=== PATIENT | male | born 1960 | race African-American/Black ===

== ENCOUNTER 2019-12-04 14:21 | Inpatient (IN) ==
--- NOTE | 2019-12-04 14:38 | Emergency Department Note ---
ED Disposition Clinical Impression: Gangrene of toe of left foot, Cellulitis of left foot Disposition: Admitted As Inpatient Condition on Discharge: Good Referrals: Teofilo Evans MD [Primary Care Provider] - Time of Disposition: 16:23 - Critical Care Critical Care Time: No Attestation: On , the high probability of a clinically significant, sudden or life threatening deterioration of the following system(s) required my full and direct attention, intervention and personal management. The time I documented below is in addition to time spent performing reported procedures but includes the following listed in this critical care notation. Medical Decision Making - [place] Inquiry Pt receiving controlled substance: Yes [place] was queried for this patient: No Risks and benefits of using a controlled substance: were not discussed with pt by me Vital Signs: 12/04/19 14:24 Temperature 98.3 F Temperature Source Oral Pulse Rate [Right Radial] 78 Respiratory Rate 16 Blood Pressure [Right Arm] 126/78 Blood Pressure Mean [Right Arm] 94 Blood Pressure Source [Right Arm] Automatic Cuff Blood Pressure Position [Right Arm] Sitting 02 Sat by Pulse Oximetry 100 Oxygen Delivery Method Room Air - Lab Data Lab Results 12/04/19 15:03: WBC 7.1, RBC 3.02 L, Hgb 8.6 L, Hct 27.8 L, MCV 92.0, MCH 28.5, MCHC 31.0 L, RDW 15.5, Plt Count 416, MPV 8.3, Neut % (Auto) 60.1, Lymph % (Auto) 28.6, [place] % (Auto) 8.1, Eos % (Auto) 2.8, Baso % (Auto) 0.4, Neut # (Auto) 4.3, Lymph # (Auto) 2.0, [place] # (Auto) 0.6, Eos # (Auto) 0.2, Baso # (Auto) 0.0 12/04/19 15:03: Sodium 141, Potassium 3.7, Chloride 102, Carbon Dioxide 34 H, Anion Gap 8.7, BUN 8, Creatinine 1.28, Estimated Creat Clear 82, Estimated GFR 58 L, Est GFR ( Amer) 70, Glucose 118 H, Calcium 9.2, Total Bilirubin 0.4, AST 19, ALT 9 L, Alkaline Phosphatase 84, Total Protein 7.8, Albumin 2.3 L, Globulin 5.5 H, Albumin/Globulin Ratio 0.4 L 12/04/19 15:03: Lactate 1.0 Result diagrams: 12/04/19 15:03 12/04/19 15:03 Orders (Tests/Meds): ED MEDICATIONS Generic Name Dose Route Start Last Admin Trade Name Freq PRN Reason Stop Dose Admin Piperacillin Sod/Tazobactam 50 mls @ 100 mls/hr 12/04/19 14:45 12/04/19 14:59 Sod 3.375 gm/ Sodium Chloride IV 12/18/19 14:44 100 mls/hr Q6H SHARATH Administration Protocol Vancomycin HCl 1,750 mg/ 250 mls @ 125 mls/hr 12/04/19 15:15 Sodium Chloride IV 12/04/19 17:14 ONCE ONE Sodium Chloride 10 ml 12/04/19 14:52 Saline Flush 10ml Syringe IV 12/05/19 02:53 NEEDED PRN Maintain IV Site Discontinued Medications Generic Name Dose Route Start Last Admin Trade Name Freq PRN Reason Stop Dose Admin Sodium Chloride 1,000 mls @ 999 mls/hr 12/04/19 15:00 12/04/19 14:59 Sod Chlor 0.9% 1000ml Bag IV 12/04/19 16:00 999 mls/hr .Q1H1M SHARATH Administration Miscellaneous 1 each 12/04/19 15:15 12/04/19 15:10 Vancomycin Consult Request * 01/03/20 15:14 1 each CONSULT PHARMACY SHARATH Administration Vancomycin HCl 1,000 mg 12/04/19 14:52 Vancomycin 1000mg Vial IV 12/04/19 14:53 ONCE ONE Protocol ORDERS Category Date Time Status Blood Culture Stat Micro 12/04/19 14:37 Received Wound Culture and Gram Stain Stat Micro 12/04/19 14:53 Results - Physician Consults Physician Consulted: Dr. Evans Time: 16:20 Reason -: Admission Comment/Response: Discussed with Dr. Evans regarding the patient and plan to get the patient admitted to the floor for IV antibiotics and surgical consult with Dr. Panda. Extremity Problem HPI - General Chief complaint: Extremity Injury, Lower Stated complaint: TOE INFECTION Time Seen by Provider: 12/04/19 14:45 Source of Information: Patient Limitations: No Limitations - History of Present Illness HPI Narrative: 58-year-old male was brought in from the group home, [facility], for having infection on the left foot toes. Patient states he noticed the infection about 2 days ago. It has been getting worse. Denies having any fever or chills. Denies having any nausea or vomiting. Patient has history of diabetes. Has history of right above knee amputation. The right foot is smelling and seems to be getting dark blackish on the toe area. It involves mainly the greater toe along with the second and the third toe. MD Complaint: extremity pain, extremity swelling - Related Data Allergies Allergy/AdvReac Type Severity Reaction Status Date / Time No Known Allergies Allergy Verified 12/04/19 14:35 [facility] History - Hepatitis A Screen Attestation statement:: This patient has been screened for Hepatitis A risk factors. ROS Obtained: Yes All systems reviewed & no additional complaints Physical Exam - General General appearance: alert, in no apparent distress - Head Head exam: atraumatic, normocephalic, normal inspection - Eye Eye exam: Present: normal appearance, PERRL, EOMI - ENT ENT exam: Present: normal exam, normal oropharynx, mucous membranes moist, TM's normal bilaterally, normal external ear exam - Neck Neck exam: Present: normal inspection, full ROM - Chest Chest inspection: Present: normal inspection, symmetric chest wall rise - Respiratory Respiratory exam: Present: normal lung sounds bilaterally. Absent: respiratory distress, wheezes - Cardiovascular Cardiovascular exam: Present: regular rate, normal rhythm - Abdominal Exam Abdominal exam: Present: soft. Absent: distention, tenderness - Extremities Exam Extremities exam: Present: other (Right above-knee amputation.) - Expanded Lower Extremity Exam Left Foot/toe exam: Present: tenderness, swelling (Swelling of the left greater toe, second toe and the third toe and the adjacent metacarpophalangeal joint area and the dorsum as well as the plantar surface of the foot.), erythema, other (Mild degree of swelling and blackish discoloration of the left greater toe, second toe and the third toe. The toes are deviated laterally. All the toes have extensive nail growth. The nail growth seems to have caused infection on the toes adjacent to them. There seems to be pressure sores and ulcers on the 3 toes. There seems to be gangrenous changes on the 3 toes. There is foul-sm elling discoloration. No obvious drainage. The area looks serous. There is 2+ to 3+ pitting edema on the left lower extremity.) - Back Exam Back exam: Present: normal inspection. Absent: tenderness - Neurological Exam Neurological exam: Present: alert, oriented X3, CN II-XII intact - Psychiatric Psychiatric exam: Present: normal affect, normal mood - Skin Skin exam: Present: warm, dry, intact, normal color
[2019-12-04 15:18] LABS: Basophils % 0.4 % (0.1-2.0); Eosinophils # 0.2 K/mm3 (0.0-0.4); Eosinophils % 2.8 % (0.1-12.0); Hematocrit 27.8 % (42.0-52.0); Hemoglobin 8.6 g/dL (14.1-18.0); Lymphocytes % 28.6 % (10-50); Mean Platelet Volume 8.3 fl (7.4-10.4); Monocytes # 0.6 K/mm3 (0.1-1.0); Monocytes % 8.1 % (1.7-9.3); Neutrophils # 4.3 K/mm3 (1.8-7.8); Neutrophils % 60.1 % (37.0-80.0); Platelet Count 416 K/mm3 (142-424); Red Blood Count 3.02 M/mm3 (4.60-6.20); Red Cell Distribution Width 15.5 % (11.5-17.5); White Blood Count 7.1 K/mm3 (4.8-10.8)
[2019-12-04 15:34] LABS: Albumin Level 2.3 gm/dL (3.4-5.0); Albumin/Globulin Ratio 0.4 (1.1-1.8); Anion Gap 8.7 mEq/L (5-15); Bilirubin,Total 0.4 mg/dL (0.2-1.0); Calcium 9.2 mg/dL (8.5-10.1); Globulin 5.5 gm/dl (1.3-3.2); Total Protein,Serum 7.8 gm/dL (6.4-8.2)
--- NOTE | 2019-12-04 17:13 | Cardiology Report ---
APPROVED REPORT Left Lower Extremity Venous Study for DVT. Dial Maker: CT Indications Stasis Disease Toe infections Pt takes blood thinner unsure of name. Vein Imaging CFV (L): compressive, spontaneous, phasic, augmentation SFJ (L): compressive, spontaneous, phasic, augmentation FEM (L): compressive, spontaneous, phasic, augmentation POP (L): compressive, spontaneous, phasic, augmentation DFV (L): compressive, spontaneous, phasic, augmentation PTV (L): compressive, spontaneous, phasic, augmentation GSV (L): compressive, spontaneous, phasic, augmentation Peroneals (L):compressive, spontaneous, phasic, augmentation GAS (L): compressive, spontaneous, phasic, augmentation Findings LLE negative for DVY/SVT. Vessels fully compressible. PT and PER arteries visualized and dopplers obtained to confirm presence of a pulses. Conclusion LLE negative for DVY/SVT. Vessels fully compressible. PT and PER arteries visualized and dopplers obtained to confirm presence of a pulses. Electronically signed by : Edmundo Wilson, 12/04/2019 17:13:07
--- NOTE | 2019-12-04 18:16 | Consult Report ---
*Admission Date: 12/04/19 *Reason for consult:: Left toe gangrene *History of present illness: Mr. Hilton is a 59 DM male who was admitted from the ER for left foot gangrene. The patient states that he had an infection to the right foot a few months ago which ultimately led to a right [id number] amputation. He reports asking the nurse at the correction to trim the toenails and they "blew him off". He said nobody ever did and the nails kept growing longer and then digging into the skin where they were causing "sores and blisters". Patient was seen last night toenails were trimmed and the first and second toenails were already avulsed and removed in total. The dressing had been removed by Dr. Evans prior to seeing the patient this morning. Patient denies pain this morning. He denies nausea vomiting, fever chills, shortness of breath and chest pain. Request medical records from . Patient had right guillotine amputation below the knee 09/18/[address] Teofilo Cantrell at for right foot wet gangrene. On 09/25/2019 Dr. Edmond bond did a right below-knee amputation. There was isc hemia of the previous BKA so 10/12/2019 Dr. Wenceslao Marlow revised to an above-knee amputation. His PCP is Dr. Cardona (last name unknown) in [place]. Patiently currently resides at [facility]. Review of Systems - Review of Systems Review of systems:: pertinent systems reviewed and negative unless documented below - Constitutional Reports weakness, Denies chills - Eyes Denies blind spots - ENT Denies abnormal hearing - *Cardiovascular Denies chest pain, Denies shortness of breath - *Respiratory Denies shortness of breath - *Gastrointestinal Denies abdominal pain - *Genitourinary Denies difficulty urinating - *Musculoskeletal Reports abnormal walking, Reports decreased muscle mass, Reports deformity, Reports numbness, Reports stiffness - Integumentary/Breasts Reports nail changes, Reports dry skin, Reports non-healing lesions, Reports wounds - *Neurologic Reports abnormal walking, Reports tingling/numbness/burning sensations - Psychiatric Reports depression - Hematologic/Lymphatic Reports easy bruising [facility] History I have reviewed the patient's past medical history: Yes Medical History: Reports:: Diabetes Mellitus Type 1, Diabetes Mellitus Type 2 *Have you ever received a pneumonia vaccine?: Yes *Have you received a flu vaccine this season?: Yes Amputation: Yes (RT AKA 10/12/19) - *Social History Smoking Status: Never smoker Alcohol Intake: never *Occupational Status:: disabled Housing: correction *Travel in the last 8 weeks: None Family Hx:: Coronary Artery Disease, Diabetes Meds Home Medications Medication Instructions Recorded Confirmed Type Acetaminophen [Tylenol 500mg 500 mg PO Q4HP PRN 12/05/19 12/05/19 History tablet] Aspirin [Aspirin 81mg chewable 81 mg PO DAILY 12/05/19 12/05/19 History tab] Atorvastatin Calcium [Atorvastatin 80 mg PO HS 12/05/19 12/05/19 History 80mg Tab] Buspirone HCl [Buspar 10mg 10 mg PO TID 12/05/19 12/05/19 History tablet] Gabapentin [Gabapentin 300mg Cap] 300 mg PO TID 12/05/19 12/05/19 History Insulin Glargine,Hum.rec.anlog 25 units SQ HS 12/05/19 12/05/19 History [Basaglar Kwikpen U-100] Insulin Lispro [Admelog] 0 units SQ TID 12/05/19 12/05/19 History Mirtazapine 30 mg PO HS 12/05/19 12/05/19 History Oxycodone HCl [Oxycodone 5mg tab 5 mg PO Q4-6H PRN 12/05/19 12/05/19 History (IR)] Pantoprazole Sodium [Protonix 40mg 40 mg PO BID 12/05/19 12/05/19 History tablet] Sennosides/Docusate Sodium 1 tab PO DAILY 12/05/19 12/05/19 History [Senokot-S Tablet] Trazodone HCl 100 mg PO HS 12/05/19 12/05/19 History Venlafaxine HCl [Venlafaxine HCl 75 mg PO DAILY 12/05/19 12/05/19 History ER] carvediloL [Carvedilol 12.5mg Tab] 12.5 mg PO BID 12/05/19 12/05/19 History hydroCHLOROthiazide 12.5 mg PO DAILY 12/05/19 12/05/19 History [Hydrochlorothiazide] lisinopriL [Lisinopril 10mg Tab] 10 mg PO DAILY 12/05/19 12/05/19 History polyethylene glycoL 3350 17 gm PO DAILY 12/05/19 12/05/19 History [Polyethylene Glycol 3350] Allergies Allergy/AdvReac Type Severity Reaction Status Date / Time No Known Allergies Allergy Verified 12/04/19 14:35 Exam Vital signs and Labs for Last 24 Hours: Temp Pulse Resp BP Pulse Ox 98.9 F 84 17 159/91 H 100 12/04/19 17:39 12/04/19 17:39 12/04/19 17:39 12/04/19 17:39 12/04/19 17:39 Laboratory Results - last 24 hr 12/04/19 15:03: WBC 7.1, RBC 3.02 L, Hgb 8.6 L, Hct 27.8 L, MCV 92.0, MCH 28.5, MCHC 31.0 L, RDW 15.5, Plt Count 416, MPV 8.3, Neut % (Auto) 60.1, Lymph % (Auto) 28.6, [place] % (Auto) 8.1, Eos % (Auto) 2.8, Baso % (Auto) 0.4, Neut # (Auto) 4.3, Lymph # (Auto) 2.0, [place] # (Auto) 0.6, Eos # (Auto) 0.2, Baso # (Auto) 0.0 12/04/19 15:03: Sodium 141, Potassium 3.7, Chloride 102, Carbon Dioxide 34 H, Anion Gap 8.7, BUN 8, Creatinine 1.28, Estimated Creat Clear 82, Estimated GFR 58 L, Est GFR ( Amer) 70, Glucose 118 H, Calcium 9.2, Total Bilirubin 0.4, AST 19, ALT 9 L, Alkaline Phosphatase 84, Total Protein 7.8, Albumin 2.3 L, Globulin 5.5 H, Albumin/Globulin Ratio 0.4 L 12/04/19 15:03: Lactate 1.0 I & O for Last 24 hours: Intake & Output 12/02/19 12/03/19 12/04/19 12/05/19 11:59 11:59 11:59 11:59 Weight 188 lb 8 oz Microbiology Reports for the Last 24 Hours: Microbiology 12/04/19 14:53 Toe,Left Great Gram Stain - Final - Constitutional no acute distress - *Routine HEENT Exam Head: Present: normocephalic - *Routine Neck Exam Present: supple - *Routine Respiratory Exam Absent: respiratory distress - *Routine Cardiovascular Exam Present: RRR - *Routine Abdominal Exam Present: soft. Absent: guarding - *Routine Rectal Exam Patient deferred: visual exam - *Routine Exam Patient deferred: penile exam - *Routine Extremities Exam Present: amputation (R AKA). Absent: pulses intact, normal capillary refill, calf tenderness - *Routine Skin Exam Present: erythema, dry, mottling, wounds, gangrene (L 1-2nd toes) - *Routine Neurological Exam Present: sensory deficit, abnormal gait - Detailed Lower Extremity Exam Top foot image: 1 - Left toes blistered sloughing skin. Total nail avulsion of 1-2nd toenails yesterday. There are gangerous changes from the digital toe tips to base of the toe. No malodor. No ulises purulence. No palpable pedal pulses. Right AKA. Results - Labs Result Diagrams: 12/05/19 05:30 12/05/19 05:30 Labs: Abnormal lab results 12/04/19 12/04/19 Range/Units 15:03 15:03 RBC 3.02 L (4.60-6.20) M/mm3 Hgb 8.6 L (14.1-18.0) g/dL Hct 27.8 L (42.0-52.0) % MCHC 31.0 L (31.8-35.4) g/dL Carbon Dioxide 34 H (21.0-32.0) mmol/L Estimated GFR 58 L (>60) ml/min Glucose 118 H (74-106) mg/dL ALT 9 L (12-78) U/L Albumin 2.3 L (3.4-5.0) gm/dL Globulin 5.5 H (1.3-3.2) gm/dl Albumin/Globulin Ratio 0.4 L (1.1-1.8) H & H 12/04/19 Range/Units 15:03 Hgb 8.6 L (14.1-18.0) g/dL Hct 27.8 L (42.0-52.0) % All other labs normal. - Diagnostic results Ankle/Foot x-ray: report reviewed, image reviewed (No definitive osteomyelitis) Assessment and Plan (1) Gangrene of toe of left foot Current visit: Yes Status: Acute Category: Medical Code(s): I96 - Gangrene, not elsewhere classified (2) Onychogryposis of toenail Current visit: Yes Status: Acute Category: Medical Code(s): L60.2 - Onychogryphosis (3) History of right below knee amputation Current visit: Yes Status: Acute Category: Surgical Code(s): Z89.511 - Acquired absence of right leg below knee (4) Onychodystrophy Current visit: Yes Status: Acute Category: Medical Code(s): L60.3 - Nail dystrophy (5) Toenail avulsion Current visit: Yes Status: Acute Category: Medical Code(s): S91.209A - Unspecified open wound of unspecified toe(s) with damage to nail, initial encounter (6) Diabetes mellitus Current visit: Yes Status: Acute Category: Medical Code(s): E11.9 - Type 2 diabetes mellitus without complications (7) Peripheral arterial disease Current visit: Yes Status: Acute Category: Medical Code(s): I73.9 - Peripheral vascular disease, unspecified (8) Peripheral arterial occlusive disease Current visit: Yes Status: Acute Category: Medical Code(s): I77.9 - Disorder of arteries and arterioles, unspecified - Assessment and plan all Dx Assessment and Plan for all problems:: PROCEDURE, 12/04/19: I discussed the condition and treatment options with the patient. I explained that because of the nail dystrophy and thickness of the toenails the first and second toenails being long and pushing into the skin they have caused trauma and sores to the first and second toes. My recommendation would be to trim the toenails on the left foot. The first and second toenails were also partially avulsed up and intact only really by sloughy skin. Patient agreed with procedure. LEFT 1,2nd TOTAL NAIL AVULSION and NAIL DEBRIDEMENT 3-5: I discussed the condition and treatment options with the patient. Skin cleansed with betadine. No local anesthetic block was given. No digital tourniquet was used. A nail nipper was used to debride the 3-5th toenails without complication. The nail nippers was used to remove in total the 1-2nd nails. There was hypertrophy and damage noted to the tissue under the nail. The skin surrounding the toenail was dusky, with black/brown gangrenous changes. No area probe to bone. Capillary refill time and pulses were not appreciated. Betadine soaked 4x4s gauze, and mar wrap was placed around the toes. 12/05/19: The area was cleansed at bedside with Betadine. There are no new signs of erythema or purulence. Gangrenous changes still noted to the first and second toe as above. Betadine soaked 4x4s gauze, and mar wrap was placed around the toes. X-rays from 12/04/2019 were reviewed by myself, report noted. No definitive signs of osteomyelitis noted. White count within normal limits. ESR and CRP pending. I discussed plan of care with Dr. Evans. ABIs performed 12/05/2019. Left JEFFERY DP 0.4, left TBI unobtainable, no waveform. I explained that due to his ischemic changes and abnormal ABIs, I would not recommend surgical amputation. After reviewing the [facility] op notes patient underwent a guillotine right BKA 09/18/2019. That was revised to a below-knee amputation on 09/25/19. That did not heal, stump was ischemic and was then converted to a right AKA 10/12/2019. Patient adamantly refuses any surgery or amputation. My recommendation is now that the source of the infection from the long toenails pushing into the toes causing blistering and scarring have been removed and trimmed, I perform daily dressing changes with Betadine keep the area clean and dry. Patient may need senior care abx if osteomyelitis noted on advanced imaging. 1. No surgical intervention planned at this time 2. Patient refuses surgery 3. skilled nursing orders: Daily dressing change: Clean left toes w Betadine, wrap loosely Betadine soaked 4x4, dry 4x4, small Mar, tape. 4. Abx per Dr. Evans 5. Recommend vascular evaluation 6. Will plan for dressing change tomorrow then likely sign off care. 7. Please call if further evaluation or opinion warranted. Patient did not want Podiatry surgical debridement or amputation.
--- NOTE | 2019-12-04 20:00 | History & Physical Report ---
*Admission Date: 12/04/19 *Chief complaint: foot infection *History of present illness: this pt has pain and progressive changes to left foot - pt was seen in the ed -8-year-old male was brought in from the [facility], [facility], for having infection on the left foot toes. Patient states he noticed the infection about 2 days ago. It has been getting worse. Denies having any fever or chills. Denies having any nausea or vomiting. Patient has history of diabetes. Has history of right above knee amputation. The left foot is smelling and seems to be getting dark blackish on the toe area. It involves mainly the greater toe along with the second and the third toe pt was admitted with iv abx and podiatry eval -pt has sig hx of rt aka about 2 months ago at [facility] History I have reviewed the patient's past medical history: Yes Medical History: Reports:: Congestive Heart Failure, Diabetes Mellitus Type 1, Diabetes Mellitus Type 2, Hyperlipidemia, Hypertension *Have you ever received a pneumonia vaccine?: No *Have you received a flu vaccine this season?: Yes Other Medical History: Reports: Blood Transfusion Reaction Laterality Cases: Right: Other Other Surgeries: Yes: Open Heart Surgery Amputation: Yes (RT BTK) - *Social History Smoking Status: Never smoker Alcohol Intake: never *Occupational Status:: disabled Housing: [facility] *Travel in the last 8 weeks: None Family Hx:: Unable to obtain Review of Systems - Review of Systems Review of systems:: pertinent systems reviewed and negative unless documented below - Constitutional Reports anorexia, Denies fever(s), Denies headache(s) - Eyes Denies change in vision - ENT Denies neck pain - *Cardiovascular Denies chest pain - *Respiratory Denies cough - *Gastrointestinal Denies abdominal pain - *Genitourinary Denies blood in urine - *Musculoskeletal Reports joint pain - Integumentary/Breasts Reports other (lt foot infection ), Denies rash - *Neurologic Denies frequent falls, Denies headache(s), Denies seizure-like activity - Psychiatric Denies anxiety Meds Home Medications Medication Instructions Recorded Confirmed Type Acetaminophen [Tylenol 500mg 500 mg PO Q4HP PRN 12/05/19 12/05/19 History tablet] Aspirin [Aspirin 81mg chewable 81 mg PO DAILY 12/05/19 12/05/19 History tab] Atorvastatin Calcium [Atorvastatin 80 mg PO HS 12/05/19 12/05/19 History 80mg Tab] Buspirone HCl [Buspar 10mg 10 mg PO TID 12/05/19 12/05/19 History tablet] Gabapentin [Gabapentin 300mg Cap] 300 mg PO TID 12/05/19 12/05/19 History Insulin Glargine,Hum.rec.anlog 25 units SQ HS 12/05/19 12/05/19 History [Basaglar Kwikpen U-100] Insulin Lispro [Admelog] 0 units SQ TID 12/05/19 12/05/19 History Mirtazapine 30 mg PO HS 12/05/19 12/05/19 History Oxycodone HCl [Oxycodone 5mg tab 5 mg PO Q4-6H PRN 12/05/19 12/05/19 History (IR)] Pantoprazole Sodium [Protonix 40mg 40 mg PO BID 12/05/19 12/05/19 History tablet] Sennosides/Docusate Sodium 1 tab PO DAILY 12/05/19 12/05/19 History [Senokot-S Tablet] Trazodone HCl 100 mg PO HS 12/05/19 12/05/19 History Venlafaxine HCl [Venlafaxine HCl 75 mg PO DAILY 12/05/19 12/05/19 History ER] carvediloL [Carvedilol 12.5mg Tab] 12.5 mg PO BID 12/05/19 12/05/19 History hydroCHLOROthiazide 12.5 mg PO DAILY 12/05/19 12/05/19 History [Hydrochlorothiazide] lisinopriL [Lisinopril 10mg Tab] 10 mg PO DAILY 12/05/19 12/05/19 History polyethylene glycoL 3350 17 gm PO DAILY 12/05/19 12/05/19 History [Polyethylene Glycol 3350] Allergies Allergy/AdvReac Type Severity Reaction Status Date / Time No Known Allergies Allergy Verified 12/04/19 14:35 Exam Vital signs and Labs for Last 24 Hours: Temp Pulse Resp BP Pulse Ox 98.9 F 84 17 159/91 H 100 12/04/19 17:39 12/04/19 17:39 12/04/19 17:39 12/04/19 17:39 12/04/19 17:39 Laboratory Results - last 24 hr 12/04/19 15:03: WBC 7.1, RBC 3.02 L, Hgb 8.6 L, Hct 27.8 L, MCV 92.0, MCH 28.5, MCHC 31.0 L, RDW 15.5, Plt Count 416, MPV 8.3, Neut % (Auto) 60.1, Lymph % (Auto) 28.6, [place] % (Auto) 8.1, Eos % (Auto) 2.8, Baso % (Auto) 0.4, Neut # (Auto) 4.3, Lymph # (Auto) 2.0, [place] # (Auto) 0.6, Eos # (Auto) 0.2, Baso # (Auto) 0.0 12/04/19 15:03: Sodium 141, Potassium 3.7, Chloride 102, Carbon Dioxide 34 H, Anion Gap 8.7, BUN 8, Creatinine 1.28, Estimated Creat Clear 82, Estimated GFR 58 L, Est GFR ( Amer) 70, Glucose 118 H, Calcium 9.2, Total Bilirubin 0.4, AST 19, ALT 9 L, Alkaline Phosphatase 84, Total Protein 7.8, Albumin 2.3 L, Globulin 5.5 H, Albumin/Globulin Ratio 0.4 L 12/04/19 15:03: Lactate 1.0 12/04/19 15:03: ESR > 140 H 12/04/19 15:03: C-Reactive Protein 9.8 H I & O for Last 24 hours: Intake & Output 12/02/19 12/03/19 12/04/19 12/05/19 11:59 11:59 11:59 11:59 Weight 188 lb 8 oz Microbiology Reports for the Last 24 Hours: Microbiology 12/04/19 14:53 Toe,Left Great Gram Stain - Final - Constitutional no acute distress - *Routine HEENT Exam Head: Present: normocephalic Eye: Present: EOMI, PERRL ENT: Present: mucous membranes dry - *Routine Neck Exam Absent: JVD - *Routine Respiratory Exam Present: CTA bilaterally - *Routine Cardiovascular Exam Present: RRR, murmur - *Routine Abdominal Exam Present: soft - *Routine Extremities Exam Comments: changes lt foot consistent with infection - has odor and change in color - tender - *Routine Skin Exam Comments: changes left foot - - *Routine Neurological Exam Present: alert, CN II-XII intact - Routine Psychiatric Exam Present: anxious Assessment and Plan (1) Onychogryposis of toenail Current visit: Yes Status: Acute Category: Medical Code(s): L60.2 - Onychogryphosis (2) History of right below knee amputation Current visit: Yes Status: Acute Category: Surgical Code(s): Z89.511 - Acquired absence of right leg below knee (3) Onychodystrophy Current visit: Yes Status: Acute Category: Medical Code(s): L60.3 - Nail dystrophy (4) Toenail avulsion Current visit: Yes Status: Acute Category: Medical Code(s): S91.209A - Unspecified open wound of unspecified toe(s) with damage to nail, initial encounter (5) Diabetes mellitus Current visit: Yes Status: Acute Category: Medical Code(s): E11.9 - Type 2 diabetes mellitus without complications (6) Gangrene of toe of left foot Current visit: Yes Status: Acute Category: Medical Code(s): I96 - Gangrene, not elsewhere classified (7) Neuropathy Current visit: Yes Status: Acute Category: Medical Code(s): G62.9 - Polyneuropathy, unspecified (8) Elevated erythrocyte sedimentation rate Current visit: Yes Status: Acute Category: Medical Code(s): R70.0 - Elevated erythrocyte sedimentation rate (9) Anemia Current visit: Yes Status: Acute Qualifiers: Anemia type: unspecified type Qualified Code(s): D64.9 - Anemia, unspecified Category: Medical Code(s): D64.9 - Anemia, unspecified
[2019-12-04 20:56] LABS: Microscopic, Urine URINE MICROSCOPIC (MICROSCOPIC)
[2019-12-04 21:07] LABS: Appearance,Urine CLEAR (Clear); Bilirubin,Urine Negative (Negative); Blood, Urine Negative (Negative); Color,Urine YELLOW (Yellow); Glucose,Urine (UA) Negative (Negative); Ketones,Urine Negative (Negative); Leukocyte Esterase,Urine Negative (Negative); Protein,Urine Negative (Negative); Urobilinogen,Urine 0.2 EU/dl (0.2)
[2019-12-04 21:20] LABS: Bacteria,Urine Trace /lpf; Squamous Epithelial Cell,Urine Occasional #/hpf (0-5); WBC,Urine Occasional #/hpf (0-3)
[2019-12-05 05:42] LABS: Basophils % 0.3 % (0.1-2.0); Eosinophils # 0.1 K/mm3 (0.0-0.4); Lymphocytes # 1.8 K/mm3 (0.7-4.5); Lymphocytes % 28.2 % (10-50); Mean Corpuscular HGB Conc 31.7 g/dL (31.8-35.4); Mean Corpuscular Volume 88.7 fl (80-94); Mean Platelet Volume 7.9 fl (7.4-10.4); Monocytes # 0.5 K/mm3 (0.1-1.0); Monocytes % 7.1 % (1.7-9.3); Neutrophils % 62.4 % (37.0-80.0); Platelet Count 381 K/mm3 (142-424); Red Cell Distribution Width 15.3 % (11.5-17.5); White Blood Count 6.4 K/mm3 (4.8-10.8)
[2019-12-05 06:31] LABS: Anion Gap 9.6 mEq/L (5-15); Calcium 8.6 mg/dL (8.5-10.1)
[2019-12-05 06:36] LABS: Hemoglobin 7.6 g/dL (14.1-18.0)
--- NOTE | 2019-12-05 07:36 | Pharmacy Consult Notes ---
[facility] Pharmacy VTE Monitoring - Patient Demographics Admission date: 12/04/19 Report Date: 12/05/19 Time: 07:36 Allergies/Adverse Reactions: Patient Allergies No Known Allergies Allergy (Verified 12/04/19 14:35) Height: 1.91 m Weight: 85.502 kg Patient Problems: Current Active Problems Gangrene of toe of left foot (Acute) Cellulitis of left foot (Acute) Onychogryposis of toenail (Acute) History of right below knee amputation (Acute) Onychodystrophy (Acute) Toenail avulsion (Acute) Diabetes mellitus (Acute) - VTE Risk Labs: VTE Related Lab Results Hgb 7.6 g/dL (14.1-18.0) L* 12/05/19 05:30 Hct 24.0 % (42.0-52.0) L 12/05/19 05:30 Plt Count 381 K/mm3 (142-424) 12/05/19 05:30 BUN 9 mg/dL (7-18) 12/05/19 05:30 Creatinine 1.23 mg/dL (0.70-1.30) 12/05/19 05:30 Estimated Creat Clear 79 mL/min (50-200) 12/05/19 05:30 - Prophylaxis VTE Prophylaxis Ordered?: Yes Types of VTE Prophylaxis: TEDS Knee High Location of Applied Device: Bilateral Lower Extremeties Pharmacologic Type: Enoxaparin
--- NOTE | 2019-12-05 08:25 | Pharmacy Consult Notes ---
- Pharmacy Consult Date: 12/05/19 Time: 08:23 Referring provider: DR. CHACON Reason for Consult:: VANCOMYCIN DOSING Allergies and ADEs:: Allergies Allergy/AdvReac Type Severity Reaction Status Date / Time No Known Allergies Allergy Verified 12/04/19 14:35 Home Medications:: Home Medications Medication Instructions Recorded Confirmed Type Acetaminophen [Tylenol 500mg 500 mg PO Q4HP PRN 12/05/19 12/05/19 History tablet] Aspirin [Aspirin 81mg chewable 81 mg PO DAILY 12/05/19 12/05/19 History tab] Atorvastatin Calcium [Atorvastatin 80 mg PO HS 12/05/19 12/05/19 History 80mg Tab] Buspirone HCl [Buspar 10mg 10 mg PO TID 12/05/19 12/05/19 History tablet] Gabapentin [Gabapentin 300mg Cap] 300 mg PO TID 12/05/19 12/05/19 History Insulin Glargine,Hum.rec.anlog 25 units SQ HS 12/05/19 12/05/19 History [Basaglar Kwikpen U-100] Insulin Lispro [Admelog] 0 units SQ TID 12/05/19 12/05/19 History Mirtazapine 30 mg PO HS 12/05/19 12/05/19 History Oxycodone HCl [Oxycodone 5mg tab 5 mg PO Q4-6H PRN 12/05/19 12/05/19 History (IR)] Pantoprazole Sodium [Protonix 40mg 40 mg PO BID 12/05/19 12/05/19 History tablet] Sennosides/Docusate Sodium 1 tab PO DAILY 12/05/19 12/05/19 History [Senokot-S Tablet] Trazodone HCl 100 mg PO HS 12/05/19 12/05/19 History Venlafaxine HCl [Venlafaxine HCl 75 mg PO DAILY 12/05/19 12/05/19 History ER] carvediloL [Carvedilol 12.5mg Tab] 12.5 mg PO BID 12/05/19 12/05/19 History hydroCHLOROthiazide 12.5 mg PO DAILY 12/05/19 12/05/19 History [Hydrochlorothiazide] lisinopriL [Lisinopril 10mg Tab] 10 mg PO DAILY 12/05/19 12/05/19 History polyethylene glycoL 3350 17 gm PO DAILY 12/05/19 12/05/19 History [Polyethylene Glycol 3350] Height: 1.91 m Weight: 85.502 kg Laboratory Results:: Laboratory Results - last 24 hr 12/04/19 15:03: WBC 7.1, RBC 3.02 L, Hgb 8.6 L, Hct 27.8 L, MCV 92.0, MCH 28.5, MCHC 31.0 L, RDW 15.5, Plt Count 416, MPV 8.3, Neut % (Auto) 60.1, Lymph % (Auto) 28.6, [place] % (Auto) 8.1, Eos % (Auto) 2.8, Baso % (Auto) 0.4, Neut # (Auto) 4.3, Lymph # (Auto) 2.0, [place] # (Auto) 0.6, Eos # (Auto) 0.2, Baso # (Auto) 0.0 12/04/19 15:03: Sodium 141, Potassium 3.7, Chloride 102, Carbon Dioxide 34 H, Anion Gap 8.7, BUN 8, Creatinine 1.28, Estimated Creat Clear 82, Estimated GFR 58 L, Est GFR ( Amer) 70, Glucose 118 H, Calcium 9.2, Total Bilirubin 0.4, AST 19, ALT 9 L, Alkaline Phosphatase 84, Total Protein 7.8, Albumin 2.3 L, Globulin 5.5 H, Albumin/Globulin Ratio 0.4 L 12/04/19 15:03: Lactate 1.0 12/04/19 15:03: ESR > 140 H 12/04/19 15:03: C-Reactive Protein 9.8 H 12/04/19 19:14: POC Glucose 107 12/04/19 20:30: Urine Color Yellow, Urine Appearance Clear, Urine pH 7.0, Ur Specific [place] 1.010, Urine Protein Negative, Urine Glucose (UA) Negative, Urine Ketones Negative, Urine Blood Negative, Urine Nitrate Negative, Urine Bilirubin Negative, Urine Urobilinogen 0.2, Ur Leukocyte Esterase Negative, Urine WBC Occasional, Ur Squamous Epith Cells Occasional, Urine Bacteria Trace 12/05/19 00:38: POC Glucose 135 H 12/05/19 05:13: POC Glucose 144 H 12/05/19 05:30: WBC 6.4, RBC 2.70 L, Hgb 7.6 L*, Hct 24.0 L, MCV 88.7, MCH 28.1, MCHC 31.7 L, RDW 15.3, Plt Count 381, MPV 7.9, Neut % (Auto) 62.4, Lymph % (Auto) 28.2, [place] % (Auto) 7.1, Eos % (Auto) 2.0, Baso % (Auto) 0.3, Neut # (Auto) 4.0, Lymph # (Auto) 1.8, [place] # (Auto) 0.5, Eos # (Auto) 0.1, Baso # (Auto) 0.0 12/05/19 05:30: Sodium 142, Potassium 3.6, Chloride 106, Carbon Dioxide 30, Anion Gap 9.6, BUN 9, Creatinine 1.23, Estimated Creat Clear 79, Estimated GFR 60, Est GFR ( Amer) 73, Glucose 135 H, Calcium 8.6 12/05/19 08:15: Crossmatch (AHG) See Detail Medical History: Reports:: Congestive Heart Failure, Diabetes Mellitus Type 1, Diabetes Mellitus Type 2, Hyperlipidemia, Hypertension Assessment and Plan (1) Onychogryposis of toenail Current visit: Yes Status: Acute Category: Medical Code(s): L60.2 - Onychogryphosis (2) History of right below knee amputation Current visit: Yes Status: Acute Category: Surgical Code(s): Z89.511 - Acquired absence of right leg below knee (3) Onychodystrophy Current visit: Yes Status: Acute Category: Medical Code(s): L60.3 - Nail dystrophy (4) Toenail avulsion Current visit: Yes Status: Acute Category: Medical Code(s): S91.209A - Unspecified open wound of unspecified toe(s) with damage to nail, initial encounter (5) Diabetes mellitus Current visit: Yes Status: Acute Category: Medical Code(s): E11.9 - Type 2 diabetes mellitus without complications (6) Gangrene of toe of left foot Current visit: Yes Status: Acute Category: Medical Code(s): I96 - Gangrene, not elsewhere classified (7) Neuropathy Current visit: Yes Status: Acute Category: Medical Code(s): G62.9 - Polyneuropathy, unspecified (8) Elevated erythrocyte sedimentation rate Current visit: Yes Status: Acute Category: Medical Code(s): R70.0 - Elevated erythrocyte sedimentation rate (9) Anemia Current visit: Yes Status: Acute Qualifiers: Anemia type: unspecified type Qualified Code(s): D64.9 - Anemia, unspecified Category: Medical Code(s): D64.9 - Anemia, unspecified - Assessment and plan all Dx Assessment and Plan for all problems:: BASED ON PATIENT FACTORS, RECOMMEND VANCOMYCIN 1750 MG IV ONCE, FOLLOWED BY VANCOMYCIN 1500 MG IV Q12H. PHARMACY WILL FOLLOW DAILY AND ADJUST DAISY ROPRIATE.
--- NOTE | 2019-12-05 08:46 | Progress Note ---
Internal Medicine - PN: Subj *Date: 12/05/19 *Time: 08:50 Interval history: 51-year-old male patient sitting up in bed resting quietly denies pain or needs at this time. H&H this morning 7.6 and 24, he will receive 4 units of packed blood cells. Exam Vital signs and Labs for Last 24 Hours: Temp Pulse Resp BP Pulse Ox 99.0 F 94 H 18 165/94 H 99 12/05/19 07:58 12/05/19 07:58 12/05/19 07:58 12/05/19 07:58 12/05/19 07:58 Laboratory Results - last 24 hr 12/04/19 15:03: WBC 7.1, RBC 3.02 L, Hgb 8.6 L, Hct 27.8 L, MCV 92.0, MCH 28.5, MCHC 31.0 L, RDW 15.5, Plt Count 416, MPV 8.3, Neut % (Auto) 60.1, Lymph % (Auto) 28.6, [place] % (Auto) 8.1, Eos % (Auto) 2.8, Baso % (Auto) 0.4, Neut # (Auto) 4.3, Lymph # (Auto) 2.0, [place] # (Auto) 0.6, Eos # (Auto) 0.2, Baso # (Auto) 0.0 12/04/19 15:03: Sodium 141, Potassium 3.7, Chloride 102, Carbon Dioxide 34 H, An ion Gap 8.7, BUN 8, Creatinine 1.28, Estimated Creat Clear 82, Estimated GFR 58 L, Est GFR ( Amer) 70, Glucose 118 H, Calcium 9.2, Total Bilirubin 0.4, AST 19, ALT 9 L, Alkaline Phosphatase 84, Total Protein 7.8, Albumin 2.3 L, Globulin 5.5 H, Albumin/Globulin Ratio 0.4 L 12/04/19 15:03: Lactate 1.0 12/04/19 15:03: ESR > 140 H 12/04/19 15:03: C-Reactive Protein 9.8 H 12/04/19 19:14: POC Glucose 107 12/04/19 20:30: Urine Color Yellow, Urine Appearance Clear, Urine pH 7.0, Ur Specific [place] 1.010, Urine Protein Negative, Urine Glucose (UA) Negative, Urine Ketones Negative, Urine Blood Negative, Urine Nitrate Negative, Urine Bilirubin Negative, Urine Urobilinogen 0.2, Ur Leukocyte Esterase Negative, Urine WBC Occasional, Ur Squamous Epith Cells Occasional, Urine Bacteria Trace 12/05/19 00:38: POC Glucose 135 H 12/05/19 05:13: POC Glucose 144 H 12/05/19 05:30: WBC 6.4, RBC 2.70 L, Hgb 7.6 L*, Hct 24.0 L, MCV 88.7, MCH 28.1, MCHC 31.7 L, RDW 15.3, Plt Count 381, MPV 7.9, Neut % (Auto) 62.4, Lymph % (Auto) 28.2, [place] % (Auto) 7.1, Eos % (Auto) 2.0, Baso % (Auto) 0.3, Neut # (Auto) 4.0, Lymph # (Auto) 1.8, [place] # (Auto) 0.5, Eos # (Auto) 0.1, Baso # (Auto) 0.0 12/05/19 05:30: Sodium 142, Potassium 3.6, Chloride 106, Carbon Dioxide 30, Anion Gap 9.6, BUN 9, Creatinine 1.23, Estimated Creat Clear 79, Estimated GFR 60, Est GFR ( Amer) 73, Glucose 135 H, Calcium 8.6 12/05/19 08:15: Crossmatch (AHG) See Detail I & O for Last 24 hours: Intake & Output 12/02/19 12/03/19 12/04/19 12/05/19 23:59 23:59 23:59 23:59 Intake Total 440 / 440 1641 / 1641 Output Total 1450 / 1450 Balance 440 / -60 191 / 191 Weight 188 lb 8 oz 188 lb 7.994 oz Microbiology Reports for the Last 24 Hours: Microbiology 12/04/19 14:53 Toe,Left Great Gram Stain - Final - Constitutional no acute distress - *Routine HEENT Exam Head: Present: normocephalic, atraumatic Eye: Present: EOMI, PERRL, normal accommodation ENT: Present: mucous membranes dry - *Routine Neck Exam Present: full ROM, trachea midline. Absent: JVD, tracheal deviation - *Routine Respiratory Exam Present: CTA bilaterally. Absent: accessory muscle use - *Routine Cardiovascular Exam Present: RRR, murmur - *Routine Abdominal Exam Present: soft, normoactive bowel sounds. Absent: tenderness, firm - *Routine Extremities Exam Present: pulses intact, amputation - Routine Back/Spine/Pelvis Exam Back/Spine: Present: full ROM. Absent: CVA tenderness - *Routine Skin Exam Present: wounds Comments: L Foot Grt toe w/ necrotic areas and odor, RLE Amputation - *Routine Neurological Exam Present: alert, CN II-XII intact - Routine Psychiatric Exam Present: normal affect. Absent: visual hallucinations Assessment and Plan (1) Onychogryposis of toenail Current visit: Yes Status: Acute Category: Medical Code(s): L60.2 - Onychogryphosis (2) History of right below knee amputation Current visit: Yes Status: Acute Category: Surgical Code(s): Z89.511 - Acquired absence of right leg below knee (3) Onychodystrophy Current visit: Yes Status: Acute Category: Medical Code(s): L60.3 - Nail dystrophy (4) Toenail avulsion Current visit: Yes Status: Acute Category: Medical Code(s): S91.209A - Unspecified open wound of unspecified toe(s) with damage to nail, initial encounter (5) Diabetes mellitus Current visit: Yes Status: Acute Category: Medical Code(s): E11.9 - Type 2 diabetes mellitus without complications (6) Gangrene of toe of left foot Current visit: Yes Status: Acute Category: Medical Code(s): I96 - Gangrene, not elsewhere classified (7) Neuropathy Current visit: Yes Status: Acute Category: Medical Code(s): G62.9 - Polyneuropathy, unspecified (8) Elevated erythrocyte sedimentation rate Current visit: Yes Status: Acute Category: Medical Code(s): R70.0 - Elevated erythrocyte sedimentation rate (9) Anemia Current visit: Yes Status: Acute Qualifiers: Anemia type: unspecified type Qualified Code(s): D64.9 - Anemia, unspecified Category: Medical Code(s): D64.9 - Anemia, unspecified - Assessment and plan all Dx Assessment and Plan for all problems:: Rounded with Dr. Evans, all orders per Dr. Evans 1. CT of left foot 2. PICC placement for long-term IV antibiotics 3. Consult cardiology for runoffs of left lower extremity
--- NOTE | 2019-12-05 09:56 | Consult Report ---
History of Present Illness Consult date: 12/05/19 Requesting physician: Teofilo Evans Chief complaint: left black toe Additional Medical History:: 1. PAD s/p R AKA about 2 months ago 2. CAD s/p CABG approx 3 years ago 3. HTN 4. HLD 5. DM 6. CHF History of present illness: This is a 59-year-old black gentleman who was admitted from [facility] for a wound to his left foot as well as discoloration to his toes. The patient states that he noticed the wound and discoloration about a week ago. He states that he had his nails clipped and then soon after he noticed the wound and discoloration. The patient states that his left foot is painful. He states that in the last 2 days the infection to his left foot and pain has gotten significantly worse. He denies any fever or chills. He denies any chest pain or chest pressure. He denies any shortness of breath, nausea, vomiting, diarrhea, PND or orthopnea. The patient has noticed some edema with the wound to his left foot. He does have a history of coronary artery disease status post coronary artery bypass grafting approximately 3 years ago per the patient's report, hypertension, hyperlipidemia, diabetes, PAD status post right [id number] amputation approximately 2 months ago. The wound to his left foot is malodorous and he has dark black areas noted to the great toe, a small portion of the second toe involved as well. The patient is getting IV antibiotics. [facility] History Medical History: Reports:: Atherosclerotic Heart Disease, Congestive Heart Failure, Coronary Artery Disease, Diabetes Mellitus Type 1, Diabetes Mellitus Type 2, Hyperlipidemia, Hypertension *Have you ever received a pneumonia vaccine?: No *Have you received a flu vaccine this season?: Yes Other Medical History: Reports: Blood Transfusion Reaction Laterality Cases: Right: Other Other Surgeries: Yes: CABG, Open Heart Surgery Amputation: Yes (RT AKA 10/12/19) - *Social History Smoking Status: Never smoker Alcohol Intake: never *Occupational Status:: disabled Housing: fpc *Travel in the last 8 weeks: None Family Hx:: Unable to obtain Meds Home Medications Medication Instructions Recorded Confirmed Type Acetaminophen [Tylenol 500mg 500 mg PO Q4HP PRN 12/05/19 12/05/19 History tablet] Aspirin [Aspirin 81mg chewable 81 mg PO DAILY 12/05/19 12/05/19 History tab] Atorvastatin Calcium [Atorvastatin 80 mg PO HS 12/05/19 12/05/19 History 80mg Tab] Buspirone HCl [Buspar 10mg 10 mg PO TID 12/05/19 12/05/19 History tablet] Gabapentin [Gabapentin 300mg Cap] 300 mg PO TID 12/05/19 12/05/19 History Insulin Glargine,Hum.rec.anlog 25 units SQ HS 12/05/19 12/05/19 History [Basaglar Kwikpen U-100] Insulin Lispro [Admelog] 0 units SQ TID 12/05/19 12/05/19 History Mirtazapine 30 mg PO HS 12/05/19 12/05/19 History Oxycodone HCl [Oxycodone 5mg tab 5 mg PO Q4-6H PRN 12/05/19 12/05/19 History (IR)] Pantoprazole Sodium [Protonix 40mg 40 mg PO BID 12/05/19 12/05/19 History tablet] Sennosides/Docusate Sodium 1 tab PO DAILY 12/05/19 12/05/19 History [Senokot-S Tablet] Trazodone HCl 100 mg PO HS 12/05/19 12/05/19 History Venlafaxine HCl [Venlafaxine HCl 75 mg PO DAILY 12/05/19 12/05/19 History ER] carvediloL [Carvedilol 12.5mg Tab] 12.5 mg PO BID 12/05/19 12/05/19 History hydroCHLOROthiazide 12.5 mg PO DAILY 12/05/19 12/05/19 History [Hydrochlorothiazide] lisinopriL [Lisinopril 10mg Tab] 10 mg PO DAILY 12/05/19 12/05/19 History polyethylene glycoL 3350 17 gm PO DAILY 12/05/19 12/05/19 History [Polyethylene Glycol 3350] Allergies Allergy/AdvReac Type Severity Reaction Status Date / Time No Known Allergies Allergy Verified 12/04/19 14:35 Review of Systems - Review of Systems Review of systems:: pertinent systems reviewed and negative unless documented below - *Musculoskeletal Comments: Left foot pain - Integumentary/Breasts Reports nail changes (Left foot), Reports change in skin color (Left foot the great toe is turning black), Reports skin ulcer - *Neurologic Reports abnormal walking, Reports numbness, Reports tingling/numbness/burning sensations, Reports weakness, Denies abnormal hearing, Denies frequent falls, Denies headache(s), Denies seizure-like activity Exam Vital signs and Labs for Last 24 Hours: Temp Pulse Resp BP Pulse Ox 99.0 F 94 H 18 165/94 H 99 12/05/19 07:58 12/05/19 07:58 12/05/19 07:58 12/05/19 07:58 12/05/19 07:58 Laboratory Results - last 24 hr 12/04/19 15:03: WBC 7.1, RBC 3.02 L, Hgb 8.6 L, Hct 27.8 L, MCV 92.0, MCH 28.5, MCHC 31.0 L, RDW 15.5, Plt Count 416, MPV 8.3, Neut % (Auto) 60.1, Lymph % (Auto) 28.6, [place] % (Auto) 8.1, Eos % (Auto) 2.8, Baso % (Auto) 0.4, Neut # (Auto) 4.3, Lymph # (Auto) 2.0, [place] # (Auto) 0.6, Eos # (Auto) 0.2, Baso # (Auto) 0.0 12/04/19 15:03: Sodium 141, Potassium 3.7, Chloride 102, Carbon Dioxide 34 H, Anion Gap 8.7, BUN 8, Creatinine 1.28, Estimated Creat Clear 82, Estimated GFR 58 L, Est GFR ( Amer) 70, Glucose 118 H, Calcium 9.2, Total Bilirubin 0.4, AST 19, ALT 9 L, Alkaline Phosphatase 84, Total Protein 7.8, Albumin 2.3 L, Globulin 5.5 H, Albumin/Globulin Ratio 0.4 L 12/04/19 15:03: Lactate 1.0 12/04/19 15:03: ESR > 140 H 12/04/19 15:03: C-Reactive Protein 9.8 H 12/04/19 19:14: POC Glucose 107 12/04/19 20:30: Urine Color Yellow, Urine Appearance Clear, Urine pH 7.0, Ur Specific [place] 1.010, Urine Protein Negative, Urine Glucose (UA) Negative, Urine Ketones Negative, Urine Blood Negative, Urine Nitrate Negative, Urine Bilirubin Negative, Urine Urobilinogen 0.2, Ur Leukocyte Esterase Negative, Urine WBC Occasional, Ur Squamous Epith Cells Occasional, Urine Bacteria Trace 12/05/19 00:38: POC Glucose 135 H 12/05/19 05:13: POC Glucose 144 H 12/05/19 05:30: WBC 6.4, RBC 2.70 L, Hgb 7.6 L*, Hct 24.0 L, MCV 88.7, MCH 28.1, MCHC 31.7 L, RDW 15.3, Plt Count 381, MPV 7.9, Neut % (Auto) 62.4, Lymph % (Auto) 28.2, [place] % (Auto) 7.1, Eos % (Auto) 2.0, Baso % (Auto) 0.3, Neut # (Auto) 4.0, Lymph # (Auto) 1.8, [place] # (Auto) 0.5, Eos # (Auto) 0.1, Baso # (Auto) 0.0 12/05/19 05:30: Sodium 142, Potassium 3.6, Chloride 106, Carbon Dioxide 30, Anion Gap 9.6, BUN 9, Creatinine 1.23, Estimated Creat Clear 79, Estimated GFR 60, Est GFR ( Amer) 73, Glucose 135 H, Calcium 8.6 12/05/19 08:15: Blood Type A Positive, Antibody Screen Negative, Crossmatch (AHG) See Detail 12/05/19 08:50: Blood Type Confirm A Positive I & O for Last 24 hours: Intake & Output 12/02/19 12/03/19 12/04/19 12/05/19 23:59 23:59 23:59 23:59 Intake Total 440 / 440 1881 / 1881 Output Total 1450 / 1450 Balance 440 / -60 431 / 431 Weight 188 lb 8 oz 188 lb 7.994 oz Microbiology Reports for the Last 24 Hours: Microbiology 12/04/19 14:53 Toe,Left Great Gram Stain - Final Narrative: EKG is sinus rhythm with a rate of 99, old anterior [place] pattern and inferior lateral ST and T wave abnormalities. - Constitutional no acute distress, average body habitus - *Routine HEENT Exam Head: Present: normocephalic, atraumatic Eye: Present: EOMI, PERRL ENT: Present: mucous membranes moist - *Routine Neck Exam Present: supple, full ROM, normal carotid upstroke. Absent: JVD, carotid bruit, lymphadenopathy - *Routine Respiratory Exam Present: CTA bilaterally - *Routine Cardiovascular Exam Present: RRR, Normal S1, Normal S2. Absent: murmur - *Routine Abdominal Exam Present: soft, normoactive bowel sounds. Absent: tenderness - *Routine Extremities Exam Present: edema (Left foot). Absent: cyanosis, clubbing, full ROM, pulses intact (Diminished pulses to the left foot; has a right [id number] amputee), normal capillary refill (Delayed cap refill in the left foot; right izbun-[id number] amputee) - *Routine Skin Exam Present: intact, erythema (Left foot), warm, wounds (Left foot with dressing intact). Absent: rash - *Routine Neurological Exam Present: alert, oriented X3, CN II-XII intact - Routine Psychiatric Exam Present: normal affect, normal thought process - Detailed Eye Exam Eyelids: Left normal inspection Assessment and Plan (1) Ischemic ulcer of left foot Current visit: Yes Status: Acute Category: Medical Code(s): L97.529 - Non- pressure chronic ulcer of other part of left foot with unspecified severity (2) Gangrene of toe of left foot Current visit: Yes Status: Acute Category: Medical Code(s): I96 - Gangrene, not elsewhere classified (3) Onychogryposis of toenail Current visit: Yes Status: Acute Category: Medical Code(s): L60.2 - Onychogryphosis (4) History of right below knee amputation Current visit: Yes Status: Chronic Category: Surgical Code(s): Z89.511 - Acquired absence of right leg below knee (5) Onychodystrophy Current visit: Yes Status: Acute Category: Medical Code(s): L60.3 - Nail dystrophy (6) Toenail avulsion Current visit: Yes Status: Acute Category: Medical Code(s): S91.209A - Unspecified open wound of unspecified toe(s) with damage to nail, initial encounter (7) Diabetes mellitus Current visit: Yes Status: Acute Category: Medical Code(s): E11.9 - Type 2 diabetes mellitus without complications (8) Abnormal ankle brachial index (JEFFERY) Current visit: Yes Status: Acute Category: Medical Code(s): R68.89 - Other general symptoms and signs (9) Coronary artery disease Current visit: Yes Status: Chronic Category: Medical Code(s): I25.10 - Atherosclerotic heart disease of [place] coronary artery without angina pectoris (10) History of coronary artery bypass graft Current visit: Yes Status: Chronic Category: Surgical Code(s): Z95.1 - Presence of aortocoronary bypass graft (11) Hypertension Current visit: Yes Status: Chronic Category: Medical Code(s): I10 - Essential (primary) hypertension (12) Hyperlipidemia Current visit: Yes Status: Chronic Category: Medical Code(s): E78.5 - Hyperlipidemia, unspecified (13) Peripheral arterial disease Current visit: Yes Status: Chronic Category: Medical Code(s): I73.9 - Peripheral vascular disease, unspecified (14) Anemia Current visit: Yes Status: Acute Category: Medical Code(s): D64.9 - Anemia, unspecified - Assessment and plan all Dx Assessment and Plan for all problems:: Plan: 1. The patient was admitted to the hospital secondary to an infection of the left lower extremity. The patient did have an JEFFERY which is abnormal at 0.43 preliminary. The patient does have a history of PAD and he is status post right myvgf-mbb-ngeu amputation. Given his ulcer to his left foot, discoloration of his left foot we will plan to proceed with left lower extremity runoff to evaluate for his peripheral arterial disease in his left leg secondary to his ischemic left foot. 2. The patient has been educated on the risks and benefits of proceeding with left lower extremity runoff. The patient verbalizes understanding is agreeable in proceeding with the procedure. 3. The patient will be n.p.o. in preparation for the runoff. 4. The patient will get IV fluids and premeds prior to the procedure. 5. The patient is anemic with a hemoglobin of 7.[address] Boyce would like for the patient to at least get 1 unit of packed red blood cells prior to proceeding with the left lower extremity runoff. Dr. Boyce also recommends only transfusing the patient with 2 units of packed red blood cells today. 6. The patient does have a history of coronary artery disease status post coronary artery bypass grafting approximately 3 years ago. He denies any chest pain or pressure. No plans for invasive cardiac testing at this time. He would likely benefit from an ischemic evaluation on an outpatient basis given his history of coronary artery disease. However the patient states that he is not here for his heart and does not want any procedures on his heart at this time. 7. His blood pressure is elevated. We will continue to follow and make adjustments to his blood pressure medications as needed. 8. His LDL goal is less than 55. 9. The patient is diabetic. He does need aggressive control of his diabetes. Will defer this to his primary care provider. 10. We will get an echocardiogram today to evaluate his LV function. 11. Further recommendations will be made pending the patient's response to treatment. Thank you for the opportunity to help participate in the care of this patient.
--- NOTE | 2019-12-05 14:54 | Electrocardiograph Report ---
APPROVED REPORT Exam: Resting ECG HR:99 bpm ECG Measurements Heart Rate 99 AXES MO 144 P 82 QRSd 92 QRS 50 QT 368 T218 QTc 472 <Conclusion> Normal sinus rhythm ST & T wave abnormality, consider inferolateral ischemia Abnormal ECG Electronically signed by : Carlos Alberto Pichardo, 12/05/2019 14:54:34
[2019-12-06 06:17] LABS: Basophils % 0.3 % (0.1-2.0); Eosinophils # 0.1 K/mm3 (0.0-0.4); Eosinophils % 1.2 % (0.1-12.0); Hematocrit 34.8 % (42.0-52.0); Hemoglobin 11.4 g/dL (14.1-18.0); Lymphocytes # 1.7 K/mm3 (0.7-4.5); Lymphocytes % 20.1 % (10-50); Mean Corpuscular HGB Conc 32.7 g/dL (31.8-35.4); Mean Corpuscular Volume 87.3 fl (80-94); Mean Platelet Volume 7.9 fl (7.4-10.4); Monocytes # 0.7 K/mm3 (0.1-1.0); Monocytes % 8.8 % (1.7-9.3); Neutrophils # 5.8 K/mm3 (1.8-7.8); Neutrophils % 69.6 % (37.0-80.0); Platelet Count 360 K/mm3 (142-424); Red Blood Count 3.98 M/mm3 (4.60-6.20); Red Cell Distribution Width 15.2 % (11.5-17.5); White Blood Count 8.4 K/mm3 (4.8-10.8)
[2019-12-06 06:33] LABS: Anion Gap 12.5 mEq/L (5-15); Calcium 8.9 mg/dL (8.5-10.1)
--- NOTE | 2019-12-06 08:40 | Progress Note ---
Subjective Date: 12/06/19 Time: 08:38 Principal diagnosis: PAD with non-healing ulcer Interval history: 59 yo BM in bed in NAD. Still does not want to have LE runoff performed. Gives no reason. Exam Vital signs and Labs for Last 24 Hours: Temp Pulse Resp BP Pulse Ox 99.1 F 97 H 20 162/96 H 96 12/06/19 04:00 12/06/19 04:00 12/06/19 04:00 12/06/19 04:00 12/06/19 04:00 Laboratory Results - last 24 hr 12/05/19 08:15: Blood Type A Positive, Antibody Screen Negative, Crossmatch (AHG) See Detail 12/05/19 08:50: Blood Type Confirm A Positive 12/05/19 11:29: POC Glucose 166 H 12/05/19 17:27: POC Glucose 104 12/05/19 20:24: POC Glucose 113 H 12/06/19 05:47: POC Glucose 136 H 12/06/19 05:48: WBC 8.4 D, RBC 3.98 L D, Hgb 11.4 L, Hct 34.8 L, MCV 87.3, MCH 28.5, MCHC 32.7, RDW 15.2, Plt Count 360, MPV 7.9, Neut % (Auto) 69.6, Lymph % (Auto) 20.1, [place] % (Auto) 8.8, Eos % (Auto) 1.2, Baso % (Auto) 0.3, Neut # (Auto) 5.8, Lymph # (Auto) 1.7, [place] # (Auto) 0.7, Eos # (Auto) 0.1, Baso # (Auto) 0.0 12/06/19 05:48: Sodium 142, Potassium 3.5, Chloride 107, Carbon Dioxide 26, Anion Gap 12.5, BUN 8, Creatinine 1.02, Estimated Creat Clear 97, Estimated GFR 75, Est GFR ( Amer) 91 D, Glucose 132 H, Calcium 8.9 I & O for Last 24 hours: Intake & Output 12/03/19 12/04/19 12/05/19 12/06/19 11:59 11:59 11:59 11:59 Intake Total 2801 / 2801 3980 / 3980 Output Total 2250 / 2250 2175 / 2175 Balance 551 / 551 1805 / 1805 Weight 188 lb 7.994 oz 192 lb 8 oz Microbiology Reports for the Last 24 Hours: Microbiology 12/04/19 14:53 Toe,Left Great Gram Stain - Final 12/04/19 14:53 Toe,Left Great Wound Culture - Preliminary Proteus mirabilis Progress Note: A&P (1) Ischemic ulcer of left foot Status: Acute Current Visit: Yes (2) Gangrene of toe of left foot Status: Acute Current Visit: Yes (3) Onychogryposis of toenail Status: Acute Current Visit: Yes (4) History of right below knee amputation Status: Chronic Current Visit: Yes (5) Onychodystrophy Status: Acute Current Visit: Yes (6) Toenail avulsion Status: Acute Current Visit: Yes (7) Diabetes mellitus Status: Acute Current Visit: Yes (8) Abnormal ankle brachial index (JEFFERY) Status: Acute Current Visit: Yes (9) Coronary artery disease Status: Chronic Current Visit: Yes (10) History of coronary artery bypass graft Status: Chronic Current Visit: Yes (11) Hypertension Status: Chronic Current Visit: Yes (12) Hyperlipidemia Status: Chronic Current Visit: Yes (13) Peripheral arterial disease Status: Chronic Current Visit: Yes (14) Anemia Status: Acute Current Visit: Yes Assessment and Plan for All Diagnoses:: Nothing further to add. Will be available if needed.
--- NOTE | 2019-12-06 09:26 | Discharge Summary ---
General - General Admission date:: 12/04/19 Discharge date: 12/06/19 HPI HPI: this pt has pain and progressive changes to left foot - pt was seen in the ed -8-year-old male was brought in from the long term, [facility], for having infection on the left foot toes. Patient states he noticed the infection about 2 days ago. It has been getting worse. Denies having any fever or chills. Denies having any nausea or vomiting. Patient has history of diabetes. Has history of right above knee amputation. The left foot is smelling and seems to be getting dark blackish on the toe area. It involves mainly the greater toe along with the second and the third toe pt was admitted with iv abx and podiatry eval -pt has sig hx of rt aka about 2 months ago at Hospital Course Hospital Course: ct foot:IMPRESSION: Diffuse edema throughout the soft tissues of the foot and ankle focally greatest over the 1st digit where the findings are suspicious for cellulitis and infection from gas producing organisms at the base of the distal phalanx of the 1st digit. No findings specific for osteomyelitis. And no discrete abscess. IMPRESSION: No findings specific for osteomyelitis. Soft tissue swelling over the distal 1st digit with probable diffuse cellulitis. Exam is limited by overlying bandage. Air projecting over the soft tissues of the distal 1st and 2nd digit may be extrinsic trapped in the bandage or represent gas within the soft tissues. venous doppler: Conclusion LLE negative for DVY/SVT. Vessels fully compressible. PT and PER arteries visualized and dopplers obtained to confirm presence of a pulses. Patient refusing any work-up and PICC line. When asked why patient does not want runoffs he states I just do not want it right now. Patient states what he is got going on with his foot is not emergent and is not going to happen overnight. Long discussion with patient about possible risk of waiting he states when he needs me he will let me know. Patient states all he wants right now is to go back to [place]. Will discharge back to [place] per patient request on p.o. Levaquin 750 mg/day and clindamycin 600 mg 3 times daily. Have wound doctor follow patient. Objective Vital signs: Temp Pulse Resp BP Pulse Ox 98.6 F 93 H 17 167/83 H 97 12/06/19 08:00 12/06/19 08:00 12/06/19 08:00 12/06/19 08:00 12/06/19 08:00 no acute distress - *Routine HEENT Exam Head: Present: normocephalic Eye: Present: PERRL ENT: Present: mucous membranes moist - *Routine Respiratory Exam Present: CTA bilaterally - *Routine Cardiovascular Exam Present: RRR - *Routine Abdominal Exam Present: soft, normoactive bowel sounds. Absent: tenderness - *Routine Extremities Exam Present: amputation Comments: Right BKA Dressing to left foot clean dry and intact - *Routine Skin Exam Present: wounds Comments: Dressing to foot clean dry and intact Scar to mid chest - *Routine Neurological Exam Present: alert, oriented X3 - Routine Psychiatric Exam Present: normal affect Results Labs on day of discharge: Labs from last 24 hours 12/06/19 12/06/19 12/06/19 08:05 05:48 05:48 WBC 8.4 D RBC 3.98 L D Hgb 11.4 L Hct 34.8 L MCV 87.3 MCH 28.5 MCHC 32.7 RDW 15.2 Plt Count 360 MPV 7.9 Neut % (Auto) 69.6 Lymph % (Auto) 20.1 [place] % (Auto) 8.8 Eos % (Auto) 1.2 Baso % (Auto) 0.3 Neut # (Auto) 5.8 Lymph # (Auto) 1.7 [place] # (Auto) 0.7 Eos # (Auto) 0.1 Baso # (Auto) 0.0 Sodium 142 Potassium 3.5 Chloride 107 Carbon Dioxide 26 Anion Gap 12.5 BUN 8 Creatinine 1.02 Estimated Creat Clear 97 Estimated GFR 75 Est GFR ( Amer) 91 D Glucose 132 H POC Glucose Calcium 8.9 Vancomycin Trough 19.1 Blood Type Antibody Screen Crossmatch (AHG) 12/06/19 12/05/19 12/05/19 05:47 20:24 17:27 WBC RBC Hgb Hct MCV MCH MCHC RDW Plt Count MPV Neut % (Auto) Lymph % (Auto) [place] % (Auto) Eos % (Auto) Baso % (Auto) Neut # (Auto) Lymph # (Auto) [place] # (Auto) Eos # (Auto) Baso # (Auto) Sodium Potassium Chloride Carbon Dioxide Anion Gap BUN Creatinine Estimated Creat Clear Estimated GFR Est GFR ( Amer) Glucose POC Glucose 136 H 113 H 104 Calcium Vancomycin Trough Blood Type Antibody Screen Crossmatch (AHG) 12/05/19 12/05/19 11:29 08:15 WBC RBC Hgb Hct MCV MCH MCHC RDW Plt Count MPV Neut % (Auto) Lymph % (Auto) [place] % (Auto) Eos % (Auto) Baso % (Auto) Neut # (Auto) Lymph # (Auto) [place] # (Auto) Eos # (Auto) Baso # (Auto) Sodium Potassium Chloride Carbon Dioxide Anion Gap BUN Creatinine Estimated Creat Clear Estimated GFR Est GFR ( Amer) Glucose POC Glucose 166 H Calcium Vancomycin Trough Blood Type A Positive Antibody Screen Negative Crossmatch ([facility]) See Detail Preliminary micro results at discharge 12/04/19 14:53 Wound Culture - Preliminary Toe,Left Great Proteus mirabilis - Additional Comments rounded with dr cote all orders per dr cote DS: Diagnosis - Discharge Diagnosis (1) Ischemic ulcer of left foot Status: Acute (2) Gangrene of toe of left foot Status: Acute (3) Onychogryposis of toenail Status: Acute (4) History of right below knee amputation Status: Chronic (5) Onychodystrophy Status: Acute (6) Toenail avulsion Status: Acute (7) Diabetes mellitus Status: Acute (8) Abnormal ankle brachial index (JEFFERY) Status: Acute (9) Coronary artery disease Status: Chronic (10) History of coronary artery bypass graft Status: Chronic (11) Hypertension Status: Chronic (12) Hyperlipidemia Status: Chronic (13) Peripheral arterial disease Status: Chronic (14) Anemia Status: Acute (15) Non-compliance Status: Acute Discharge Plan - Patient Discharge Instructions ACTIVITY: Continue current activity DIET: continue same diet Patient Instructions: Gangrene, Anemia - Follow up Plan Follow up with: Marcel Snyder APRN [Advanced Practice Nurse] - 12/10/19 Disposition: Xfer [facility] Home Medications: Home Medications Medication Instructions Recorded Confirmed Type Acetaminophen [Tylenol 500mg 500 mg PO Q4HP PRN 12/05/19 12/05/19 History tablet] Aspirin [Aspirin 81mg chewable 81 mg PO DAILY 12/05/19 12/05/19 History tab] Atorvastatin Calcium [Atorvastatin 80 mg PO HS 12/05/19 12/05/19 History 80mg Tab] Buspirone HCl [Buspar 10mg 10 mg PO TID 12/05/19 12/05/19 History tablet] Gabapentin [Gabapentin 300mg Cap] 300 mg PO TID 12/05/19 12/05/19 History Insulin Glargine,Hum.rec.anlog 25 units SQ HS 12/05/19 12/05/19 History [Basaglar Kwikpen U-100] Insulin Lispro [Admelog] 0 units SQ TID 12/05/19 12/05/19 History Mirtazapine 30 mg PO HS 12/05/19 12/05/19 History Oxycodone HCl [Oxycodone 5mg tab 5 mg PO Q4HP PRN 12/05/19 12/05/19 History (IR)] Pantoprazole Sodium [Protonix 40mg 40 mg PO BID 12/05/19 12/05/19 History tablet] Sennosides/Docusate Sodium 1 tab PO DAILY 12/05/19 12/05/19 History [Senokot-S Tablet] Trazodone HCl 100 mg PO HS 12/05/19 12/05/19 History Venlafaxine HCl [Venlafaxine HCl 75 mg PO DAILY 12/05/19 12/05/19 History ER] carvediloL [Carvedilol 12.5mg Tab] 12.5 mg PO BID 12/05/19 12/05/19 History hydroCHLOROthiazide 12.5 mg PO DAILY 12/05/19 12/05/19 History [Hydrochlorothiazide] lisinopriL [Lisinopril 10mg Tab] 10 mg PO DAILY 12/05/19 12/05/19 History polyethylene glycoL 3350 17 gm PO DAILY 12/05/19 12/05/19 History [Polyethylene Glycol 3350] Clindamycin HCl [Cleocin HCl] 600 mg PO TID 10 Days #60 cap 12/06/19 Rx levoFLOXacin [Levaquin 750mg 750 mg PO DAILY #10 tab 12/06/19 Rx tablet] Prescriptions/Medication Reconciliation: New Clindamycin HCl [Cleocin HCl] 600 mg PO TID 10 Days #60 cap levoFLOXacin [Levaquin 750mg tablet] 750 mg PO DAILY #10 tab Continued Gabapentin [Gabapentin 300mg Cap] 300 mg PO TID lisinopriL [Lisinopril 10mg Tab] 10 mg PO DAILY Mirtazapine 30 mg PO HS Pantoprazole Sodium [Protonix 40mg tablet] 40 mg PO BID Acetaminophen [Tylenol 500mg tablet] 500 mg PO Q4HP PRN PRN Reason: As Needed For Fever Or Pain Trazodone HCl 100 mg PO HS Venlafaxine HCl [Venlafaxine HCl ER] 75 mg PO DAILY Buspirone HCl [Buspar 10mg tablet] 10 mg PO TID carvediloL [Carvedilol 12.5mg Tab] 12.5 mg PO BID hydroCHLOROthiazide [Hydrochlorothiazide] 12.5 mg PO DAILY polyethylene glycoL 3350 [Polyethylene Glycol 3350] 17 gm PO DAILY Sennosides/Docusate Sodium [Senokot-S Tablet] 1 tab PO DAILY Aspirin [Aspirin 81mg chewable tab] 81 mg PO DAILY Atorvastatin Calcium [Atorvastatin 80mg Tab] 80 mg PO HS Insulin Lispro [Admelog] 0 units SQ TID Insulin Glargine,Hum.rec.anlog [Basaglar Kwikpen U-100] 25 units SQ HS Oxycodone HCl [Oxycodone 5mg tab (IR)] 5 mg PO Q4HP PRN PRN Reason: pain - Problem Reconciliation Problems Reviewed?: Yes
--- NOTE | 2019-12-06 10:39 | Pharmacy Consult Notes ---
- Pharmacy Consult Date: 12/06/19 Time: 10:35 Referring provider: DR. CHACON Reason for Consult:: VANCOMYCIN TROUGH LEVEL Allergies and ADEs:: Allergies Allergy/AdvReac Type Severity Reaction Status Date / Time No Known Allergies Allergy Verified 12/04/19 14:35 Home Medications:: Home Medications Medication Instructions Recorded Confirmed Type Acetaminophen [Tylenol 500mg 500 mg PO Q4HP PRN 12/05/19 12/05/19 History tablet] Aspirin [Aspirin 81mg chewable 81 mg PO DAILY 12/05/19 12/05/19 History tab] Atorvastatin Calcium [Atorvastatin 80 mg PO HS 12/05/19 12/05/19 History 80mg Tab] Buspirone HCl [Buspar 10mg 10 mg PO TID 12/05/19 12/05/19 History tablet] Gabapentin [Gabapentin 300mg Cap] 300 mg PO TID 12/05/19 12/05/19 History Insulin Glargine,Hum.rec.anlog 25 units SQ HS 12/05/19 12/05/19 History [Basaglar Kwikpen U-100] Insulin Lispro [Admelog] 0 units SQ TID 12/05/19 12/05/19 History Mirtazapine 30 mg PO HS 12/05/19 12/05/19 History Oxycodone HCl [Oxycodone 5mg tab 5 mg PO Q4HP PRN 12/05/19 12/05/19 History (IR)] Pantoprazole Sodium [Protonix 40mg 40 mg PO BID 12/05/19 12/05/19 History tablet] Sennosides/Docusate Sodium 1 tab PO DAILY 12/05/19 12/05/19 History [Senokot-S Tablet] Trazodone HCl 100 mg PO HS 12/05/19 12/05/19 History Venlafaxine HCl [Venlafaxine HCl 75 mg PO DAILY 12/05/19 12/05/19 History ER] carvediloL [Carvedilol 12.5mg Tab] 12.5 mg PO BID 12/05/19 12/05/19 History hydroCHLOROthiazide 12.5 mg PO DAILY 12/05/19 12/05/19 History [Hydrochlorothiazide] lisinopriL [Lisinopril 10mg Tab] 10 mg PO DAILY 12/05/19 12/05/19 History polyethylene glycoL 3350 17 gm PO DAILY 12/05/19 12/05/19 History [Polyethylene Glycol 3350] Clindamycin HCl [Cleocin HCl] 600 mg PO TID 10 Days #60 cap 12/06/19 Rx levoFLOXacin [Levaquin 750mg 750 mg PO DAILY #10 tab 12/06/19 Rx tablet] Height: 1.91 m Weight: 87.317 kg Laboratory Results:: Laboratory Results - last 24 hr 12/05/19 08:15: Blood Type A Positive, Antibody Screen Negative, Crossmatch (AHG) See Detail 12/05/19 11:29: POC Glucose 166 H 12/05/19 17:27: POC Glucose 104 12/05/19 20:24: POC Glucose 113 H 12/06/19 05:47: POC Glucose 136 H 12/06/19 05:48: WBC 8.4 D, RBC 3.98 L D, Hgb 11.4 L, Hct 34.8 L, MCV 87.3, MCH 28.5, MCHC 32.7, RDW 15.2, Plt Count 360, MPV 7.9, Neut % (Auto) 69.6, Lymph % (Auto) 20.1, [place] % (Auto) 8.8, Eos % (Auto) 1.2, Baso % (Auto) 0.3, Neut # (Auto) 5.8, Lymph # (Auto) 1.7, [place] # (Auto) 0.7, Eos # (Auto) 0.1, Baso # (Auto) 0.0 12/06/19 05:48: Sodium 142, Potassium 3.5, Chloride 107, Carbon Dioxide 26, Anion Gap 12.5, BUN 8, Creatinine 1.02, Estimated Creat Clear 97, Estimated GFR 75, Est GFR ( Amer) 91 D, Glucose 132 H, Calcium 8.9 12/06/19 08:05: Vancomycin Trough 19.1 Medical History: Reports:: Atherosclerotic Heart Disease, Congestive Heart Failure, Coronary Artery Disease, Diabetes Mellitus Type 1, Diabetes Mellitus Type 2, Hyperlipidemia, Hypertension Assessment and Plan (1) Ischemic ulcer of left foot Current visit: Yes Status: Acute Category: Medical Code(s): L97.529 - Non-pressure chronic ulcer of other part of left foot with unspecified severity (2) Gangrene of toe of left foot Current visit: Yes Status: Acute Category: Medical Code(s): I96 - Gangrene, not elsewhere classified (3) Onychogryposis of toenail Current visit: Yes Status: Acute Category: Medical Code(s): L60.2 - Onychogryphosis (4) History of right below knee amputation Current visit: Yes Status: Chronic Category: Surgical Code(s): Z89.511 - Acquired absence of right leg below knee (5) Onychodystrophy Current visit: Yes Status: Acute Category: Medical Code(s): L60.3 - Nail dystrophy (6) Toenail avulsion Current visit: Yes Status: Acute Category: Medical Code(s): S91.209A - Unspecified open wound of unspecified toe(s) with damage to nail, initial encounter (7) Diabetes mellitus Current visit: Yes Status: Acute Category: Medical Code(s): E11.9 - Type 2 diabetes mellitus without complications (8) Abnormal ankle brachial index (JEFFERY) Current visit: Yes Status: Acute Category: Medical Code(s): R68.89 - Other general symptoms and signs (9) Coronary artery disease Current visit: Yes Status: Chronic Category: Medical Code(s): I25.10 - Atherosclerotic heart disease of [place] coronary artery without angina pectoris (10) History of coronary artery bypass graft Current visit: Yes Status: Chronic Category: Surgical Code(s): Z95.1 - Presence of aortocoronary bypass graft (11) Hypertension Current visit: Yes Status: Chronic Category: Medical Code(s): I10 - Essential (primary) hypertension (12) Hyperlipidemia Current visit: Yes Status: Chronic Category: Medical Code(s): E78.5 - Hyperlipidemia, unspecified (13) Peripheral arterial disease Current visit: Yes Status: Chronic Category: Medical Code(s): I73.9 - Peripheral vascular disease, unspecified (14) Anemia Current visit: Yes Status: Acute Category: Medical Code(s): D64.9 - Anemia, unspecified (15) Non-compliance Current visit: Yes Status: Acute Category: Medical Code(s): Z91.19 - Patient's noncompliance with other medical treatment and regimen - Assessment and plan all Dx Assessment and Plan for all problems:: BASED ON VANCOMYCIN TROUGH LEVEL AND PATIENT FACTORS, RECOMMEND CHANGING INTERVAL TO VANCOMYCIN 1500 MG IV Q18H. PATIENT IS BEING DISCHARGE BACK TO LONG-TERM TODAY ON LEVAQUIN AND CLINDAMYCIN. CULTURE IS POSITIVE FOR PROTEUS MIRABILIS.
--- NOTE | 2019-12-06 13:00 | Cardiology Report ---
APPROVED REPORT EXAM: Comprehensive 2D, Doppler, and color-flow Echocardiogram Stonework Tracer: Aaliyah Arreola RVT Ht: 5 ft 3 in Wt: 188lbs BSA: 1.88 BP: 165/94 mmHg Indications: Diabetes, CAD, Hyperlipidemia, Hypertension,CABG,Abn EKG,Gangrentous left foot 2D Dimensions LVOT 2.33 cm (M/F) 1.5-2.5 M-Mode Dimensions RVDd 2.80 cm (0.9-2.6)LVDd 5.47 cm (3.5-5.7) LVDs 3.87 cm (3.5-5.7)IVSd 0.62 cm (0.6-1.1) PWd 1.33 cm (0.6-1.1)EF (Teich) 55.60% FS 29.30% EDV (Teich) 145.60 mL ESV (Teich) 64.70 mL LV Diastology E/A Ratio 0.91 Mitral Valve MV A Velocity 80.00 (40-130 cm/s) Left Ventricle Left atrium is mildly enlarged, left ventricle is normal size, mild concentric left ventricular hypertrophy, visually estimated ejection fraction 45%, there is moderate hypokinesis involving the mid to distal septum and apical wall. Endocardial surfaces are poorly visualized. Diastolic parameters are inconclusive. Right Ventricle Right atrium and right ventricular normal size and contractility. Aortic Valve Aortic valve is minimally thickened and fibrosed leaflet continue to display good mobility, there is no aortic stenosis or aortic insufficiency. Mitral Valve Mitral valve is grossly normal, there is mild mitral regurgitation. Tricuspid Valve Tricuspid valve is grossly normal, there is mild tricuspid regurgitation, tricuspid regurgitation jet velocity is inadequate for calculation of the right ventricular systolic pressure. Pulmonic Valve Pulmonic valve is poorly visualized. Great Vessels Aortic root is normal size. Pericardium No significant pericardial effusion noted. Conclusion 1. Technically difficult study because of the patient fact in poor acoustic windows. 2. Mildly enlarged left atrium, normal left ventricular size, mild concentric left ventricular hypertrophy, visually estimated ejection fraction 45% with segmental wall motion abnormality described above, diastolic parameters are inconclusive. 3. Mild mitral and tricuspid regurgitation. 4. No significant pericardial effusion noted. Electronically signed by : Edd Cortes, 12/06/2019 12:59:40
--- NOTE | 2019-12-06 14:28 | Progress Note ---
Subjective Date: 12/06/19 <Dulce Saldivar - 12/06/19 14:55> Time: 08:15 <Dulce Saldivar - 12/06/19 14:55> Principal diagnosis: PAD with non-healing ulcer <Dulce Saldivar - 12/06/19 14:55> Interval history: The patient was resting in bed this morning upon entering the room. Patient states he had a good night and denies pain with his left foot. He denies nausea vomiting, fever chills, shortness of breath and chest pain. I will change the dressing to his left hallux and 2nd toe this morning. Review of Systems - Review of Systems Review of systems:: pertinent systems reviewed and negative unless documented below - Constitutional Reports weakness, Denies chills - Eyes Denies blind spots - ENT Denies abnormal hearing - *Cardiovascular Denies chest pain, Denies shortness of breath - *Respiratory Denies shortness of breath - *Gastrointestinal Denies abdominal pain - *Genitourinary Denies difficulty urinating - *Musculoskeletal Reports abnormal walking, Reports decreased muscle mass, Reports deformity, Reports numbness, Reports stiffness - Integumentary/Breasts Reports nail changes, Reports dry skin, Reports non-healing lesions, Reports wounds - *Neurologic Reports abnormal walking, Reports tingling/numbness/burning sensations - Psychiatric Reports depression - Hematologic/Lymphatic Reports easy bruising [facility] History I have reviewed the patient's past medical history: Yes Medical History: Reports:: Diabetes Mellitus Type 1, Diabetes Mellitus Type 2 *Have you ever received a pneumonia vaccine?: Yes *Have you received a flu vaccine this season?: Yes Amputation: Yes (RT AKA 10/12/19) - *Social History Smoking Status: Never smoker Alcohol Intake: never *Occupational Status:: disabled Housing: senior living *Travel in the last 8 weeks: None Family Hx:: Coronary Artery Disease, Diabetes Constitutional no acute distress - *Routine HEENT Exam Head: Present: normocephalic - *Routine Neck Exam Present: supple - *Routine Respiratory Exam Absent: respiratory distress - *Routine Cardiovascular Exam Present: RRR - *Routine Abdominal Exam Present: soft. Absent: guarding - *Routine Rectal Exam Patient deferred: visual exam - *Routine Exam Patient deferred: penile exam - *Routine Extremities Exam Present: amputation (R AKA). Absent: pulses intact, normal capillary refill, calf tenderness - *Routine Skin Exam Present: erythema, dry, mottling, wounds, gangrene (L 1-2nd toes) - *Routine Neurological Exam Present: sensory deficit, abnormal gait <Dulce Saldivar 12/06/19 14:55> PN: Obj Ex Vital signs: Temp Pulse Resp BP Pulse Ox 99.3 F 92 H 18 172/96 H 99 12/06/19 16:30 12/06/19 16:30 12/06/19 16:30 12/06/19 16:30 12/06/19 16:30 <Etta Panda - 12/07/19 08:23> Temp Pulse Resp BP Pulse Ox 98.6 F 89 18 172/84 H 98 12/06/19 11:59 12/06/19 11:59 12/06/19 11:59 12/06/19 11:59 12/06/19 11:59 <Dulce Saldivar 12/06/19 14:55> - Constitutional no acute distress <Dulce Saldivar 12/06/19 14:55> - Routine HEENT Exam Head: Present: normocephalic <Dulce Saldivar 12/06/19 14:55> ENT: Present: mucous membranes moist <Dulce Saldivar 12/06/19 14:55> - Routine Neck Exam Present: trachea midline. Absent: JVD <Dulce Saldivar 12/06/19 14:55> - Routine Respiratory Exam Absent: respiratory distress <Dulce Saldivar 12/06/19 14:55> - Routine Cardiovascular Exam Present: RRR <Dulce Saldivar 12/06/19 14:55> - Routine Abdominal Exam Present: obese. Absent: distended <Dulce Saldivar 12/06/19 14:55> - Routine Extremities Exam Present: amputation. Absent: calf tenderness <Dulce Saldivar 12/06/19 14:55> Comments: Right AKA <Dulce Saldivar 12/06/19 14:55> - Detailed Lower Extremity Exam Top foot image: 1 - 1 - Left toes blistered sloughing skin. Total nail avulsion of 1-2nd toenails yesterday. There are gangerous changes from the digital toe tips to base of the toe. No malodor. No ulises purulence. No palpable pedal pulses. Right AKA. <Dulce Saldivar 12/06/19 14:55> - Routine Skin Exam Present: dry, lesions, wounds <Dulce Saldivar 12/06/19 14:55> - Routine Neurological Exam Present: oriented X3 <Dulce Saldivar 12/06/19 14:55> - Routine Psychiatric Exam Present: normal affect <Dulce Saldivar 12/06/19 14:55> Progress Note: A&P (1) Ischemic ulcer of left foot Status: Acute (2) Gangrene of toe of left foot Status: Acute (3) Onychogryposis of toenail Status: Acute (4) History of right below knee amputation Status: Chronic (5) Onychodystrophy Status: Acute (6) Toenail avulsion Status: Acute (7) Diabetes mellitus Status: Acute (8) Abnormal ankle brachial index (JEFFERY) Status: Acute (9) Coronary artery disease Status: Chronic (10) History of coronary artery bypass graft Status: Chronic (11) Hypertension Status: Chronic (12) Hyperlipidemia Status: Chronic (13) Peripheral arterial disease Status: Chronic (14) Anemia Status: Acute (15) Non-compliance Status: Acute <Dulce Saldivar 12/06/19 14:18> (1) Ischemic ulcer of left foot Status: Acute (2) Gangrene of toe of left foot Status: Acute (3) Onychogryposis of toenail Status: Acute (4) History of right below knee amputation Status: Chronic (5) Onychodystrophy Status: Acute (6) Toenail avulsion Status: Acute (7) Diabetes mellitus Status: Acute (8) Abnormal ankle brachial index (JEFFERY) Status: Acute (9) Coronary artery disease Status: Chronic (10) History of coronary artery bypass graft Status: Chronic (11) Hypertension Status: Chronic (12) Hyperlipidemia Status: Chronic (13) Peripheral arterial disease Status: Chronic (14) Anemia Status: Acute (15) Non-compliance Status: Acute <Etta Panda - 12/07/19 08:23> Assessment and Plan for All Diagnoses:: Physician Attestation I was present during all of the critical components of the office visit. The patient was seen, evaluated and examined by me. I have read the office note that was documented by the staff and/or [employer] and agree with the documentation. <Etta Panda - 12/07/19 08:23> 12/06/19: The area was cleansed at bedside with Betadine. There are no new signs of erythema or purulence. Gangrenous changes still noted to the first and second toe as above. Betadine soaked 4x4s gauze, and mar wrap was placed around the toes. We discussed plan of care with Dr. Evans. ABIs performed 12/05/2019. Left JEFFERY DP 0.4, left TBI unobtainable, no waveform. I explained that due to his ischemic changes and abnormal ABIs, I would not recommend surgical amputation. After reviewing the [facility] op notes patient underwent a guillotine right BKA 09/18/2019. That was revised to a below-knee amputation on 09/25/19. That did not heal, stump was ischemic and was then converted to a right AKA 10/12/2019. Patient adamantly refuses any surgery or amputation. My recommendation is now that the source of the infection from the long toenails pushing into the toes causing blistering and scarring have been removed and trimmed, I perform daily dressing changes with Betadine keep the area clean and dry. Patient may need assisted abx if osteomyelitis noted on advanced imaging. 1. No surgical intervention planned at this time 2. Patient refuses surgery 3. assisted orders: Daily dressing change: Clean left toes w Betadine, wrap loosely Betadine soaked 4x4, dry 4x4, small Mar, tape. 4. Abx per Dr. Evans 5. Recommend vascular evaluation: the patient has refused Dr. Boyce in performing a LLE run off procedure. 6. We have done the dressing change for today and the patient may have future dressing changes per nursing or at assisted as per instructions as above. 7. Please call if further evaluation or opinion warranted. Patient did not want Podiatry surgical debridement or amputation. <Dulce Saldivar - 12/06/19 14:55>
== END 2019-12-06 13:42 | DRG 300 ==
LOC: ER 14:21 → 2ND 16:54
PROVIDERS: ADMIT Emergency Medicine; ATTEND Emergency Medicine
CPT/HCPCS: 11720; 11730; 11732; 36415; 71010; 71045; 73630; 73700; 80048; 80053; 80202; 81001; 82962; 83605; 85025; 85651; 86140; 86850; 87040; 87070; 87077; 87186; 87205; 93005; 93306; 93923; 93971; 96365; 96366; 99284; J2543; J3370; P9016

== ENCOUNTER → 2019-12-11 13:34 | Outpatient (CLI) | payer MEDICAID, SELFPAY ==
--- NOTE | 2019-12-11 14:17 | XR_ITS ---
PROCEDURE: XR CHEST PORTABLE PICC PLAC CLINICAL HISTORY: PICC line placement COMPARISON: XR CHEST PORTABLE from 12/05/2019 FINDINGS: A PICC line has been inserted by the left subclavian approach. The tip is in satisfactory position in the region of the superior vena cava. There has been a prior CABG. Lungs are clear. Normal heart size. IMPRESSION: Left upper extremity PICC in good position Dictated by: Kelvin Peterson MD 12/11/2019 14:40 Electronically signed by Kelvin Peterson MD in [place] 12/11/2019 14:40
== END ==
PROVIDERS: Visit Provider Nurse Practitioner Family
DX: Z45.2 Encounter for adjustment and management of vascular access device (principal)
CPT/HCPCS: 36569; 71045; C1751

== ENCOUNTER → 2019-12-31 18:15 | Outpatient (CLI) | payer MEDICAID, SELFPAY | PROVIDERS: Visit Provider Podiatrist | DX: I96 Gangrene, not elsewhere classified (principal); L97.522 Non-pressure chronic ulcer of other part of left foot with fat layer exposed | CPT/HCPCS: 87070; 87077; 87081; 87186; 87205 ==

== ENCOUNTER 2020-01-10 13:19 | Outpatient (CLI) | payer MEDICAID, SELFPAY ==
[2020-01-10 14:24] VITALS: BMI 26.9
--- NOTE | 2020-01-10 14:25 | XR_ITS ---
PROCEDURE: XR CHEST PORTABLE PICC PLAC CLINICAL HISTORY: PICC line placement COMPARISON: XR CHEST PORTABLE from 12/05/2019 XR CHEST PORTABLE PICC PLAC from 12/11/2019 FINDINGS: There is mild cardiomegaly without failure. There has been a prior median sternotomy. There is a left upper extremity PICC line present. The tip is in good position in the region of the distal SVC. The lungs are clear without infiltrates, suspicious nodules, or pleural effusions. No acute bony abnormalities. IMPRESSION: Left upper extremity PICC tip in good position in the region of the distal SVC Dictated by: Kelvin Peterson MD 01/10/2020 14:57 Electronically signed by Kelvin Peterson MD in [place] 01/10/2020 14:57
== END 2020-01-10 15:10 | disposition home or self-care (01) ==
LOC: INF 13:19
PROVIDERS: PCP Emergency Medicine; Visit Provider Emergency Medicine
DX: Z45.2 Encounter for adjustment and management of vascular access device (principal)
CPT/HCPCS: 36569; 71045; C1751

== ENCOUNTER → 2020-01-24 11:32 | Outpatient (CLI) | payer MEDICAID, SELFPAY ==
--- NOTE | 2020-01-24 11:36 | XR_ITS ---
PROCEDURE: XR FOOT WT BEARING LT 3V CLINICAL INDICATION: POST-OP follow-up surgery COMPARISON: XR FOOT LT MIN 3V from 12/04/2019 CT FOOT LT WO CON from 12/05/2019 XR FOOT LT MIN 3V from 01/01/2020 FINDINGS: There has been prior amputation at the distal aspect of the 2nd metatarsal and the mid aspect of the 1st metatarsal. Antibiotic beads are present at these areas somewhat less apparent compared to the previous exam. The amputation site at the distal aspect of the 2nd metatarsal is somewhat ill-defined. This however had a similar appearance on the previous exam and is not significantly changed. There is diffuse vascular calcification IMPRESSION: Status post amputation at the 2nd and 1st metatarsals. The amputation stump at the 2nd metatarsal is somewhat ill-defined but not significantly changed. Continued follow-up suggested Dictated by: Kelvin Peterson MD 01/24/2020 13:15 Electronically signed by Kelvin Peterson MD in [place] 01/24/2020 13:15
[2020-01-24 12:13] LABS: Basophils % 0.3 % (0.1-2.0); Eosinophils # 0.1 K/mm3 (0.0-0.4); Eosinophils % 1.7 % (0.1-12.0); Hematocrit 27.7 % (42.0-52.0); Hemoglobin 9.1 g/dL (14.1-18.0); Lymphocytes # 1.9 K/mm3 (0.7-4.5); Lymphocytes % 38.4 % (10-50); Mean Corpuscular HGB Conc 32.7 g/dL (31.8-35.4); Mean Corpuscular Hemoglobin 28.8 pg (27.0-31.2); Mean Corpuscular Volume 88.2 fl (80-94); Monocytes # 0.4 K/mm3 (0.1-1.0); Monocytes % 7.4 % (1.7-9.3); Neutrophils # 2.5 K/mm3 (1.8-7.8); Neutrophils % 52.1 % (37.0-80.0); Platelet Count 192 K/mm3 (142-424); Red Blood Count 3.14 M/mm3 (4.60-6.20); Red Cell Distribution Width 14.8 % (11.5-17.5); White Blood Count 4.9 K/mm3 (4.8-10.8)
[2020-01-24 12:39] LABS: Erythrocyte Sedimentation Rate 128 mm/hr (0-20)
[2020-01-24 12:41] LABS: Alanine Aminotransferase 11 U/L (12-78); Albumin Level 4.3 g/dl (3.5-5.0); Albumin/Globulin Ratio 1.1 (1.1-1.8); Alkaline Phosphatase 73 U/L (38-126); Anion Gap 17.5 mEq/L (5-15); Aspartate Amino Transferase 26 U/L (17-59); Bilirubin,Total 0.3 mg/dl (0.2-1.3); Blood Urea Nitrogen 13 mg/dl (9-20); Calcium 10.2 mg/dl (8.4-10.2); Carbon Dioxide 27 mmol/L (22.0-30.0); Chloride 102 mmol/L (98-107); Estimated Glomerular Filt Rate 69 ml/min (>60); GFR (African American) 83 ML/MIN (>60); Globulin 3.8 g/dL (1.3-3.2); Glucose 144 mg/dl (74-100); Potassium 4.5 mmoL/L (3.5-5.1); Sodium 142 mmol/L (136-145); Total Protein,Serum 8.1 g/dl (6.3-8.2)
[2020-01-24 12:51] LABS: C-Reactive Protein 1.8 mg/L (0-4)
== END ==
PROVIDERS: PCP Emergency Medicine; Visit Provider Podiatrist
DX: Z98.890 Other specified postprocedural states (principal); L03.116 Cellulitis of left lower limb; E11.52 Type 2 diabetes mellitus with diabetic peripheral angiopathy with gangrene
CPT/HCPCS: 36415; 73630; 80053; 85025; 85651; 86140

== ENCOUNTER → 2020-02-07 09:49 | Outpatient (CLI) | payer MEDICAID, SELFPAY ==
[2020-02-07 10:17] LABS: Basophils % 0.4 % (0.1-2.0); Eosinophils # 0.1 K/mm3 (0.0-0.4); Eosinophils % 1.9 % (0.1-12.0); Hematocrit 25.4 % (42.0-52.0); Lymphocytes # 1.5 K/mm3 (0.7-4.5); Lymphocytes % 35.3 % (10-50); Mean Corpuscular HGB Conc 30.9 g/dL (31.8-35.4); Mean Corpuscular Volume 87.2 fl (80-94); Mean Platelet Volume 8.9 fl (7.4-10.4); Monocytes # 0.3 K/mm3 (0.1-1.0); Monocytes % 6.4 % (1.7-9.3); Neutrophils # 2.3 K/mm3 (1.8-7.8); Platelet Count 211 K/mm3 (142-424); Red Blood Count 2.91 M/mm3 (4.60-6.20); Red Cell Distribution Width 16.1 % (11.5-17.5); White Blood Count 4.1 K/mm3 (4.8-10.8)
[2020-02-07 10:22] LABS: Chloride 100 mmol/L (98-107); Potassium 4.4 mmoL/L (3.5-5.1); Sodium 138 mmol/L (136-145)
[2020-02-07 10:25] LABS: Alanine Aminotransferase 13 U/L (12-78); Albumin Level 4.1 g/dl (3.5-5.0); Albumin/Globulin Ratio 1.2 (1.1-1.8); Alkaline Phosphatase 63 U/L (38-126); Anion Gap 16.4 mEq/L (5-15); Aspartate Amino Transferase 22 U/L (17-59); Bilirubin,Total 0.7 mg/dl (0.2-1.3); Blood Urea Nitrogen 18 mg/dl (9-20); Carbon Dioxide 26 mmol/L (22.0-30.0); Estimated Glomerular Filt Rate 52 ml/min (>60); GFR (African American) 63 ML/MIN (>60); Globulin 3.4 g/dL (1.3-3.2); Glucose 157 mg/dl (74-100); Total Protein,Serum 7.5 g/dl (6.3-8.2)
[2020-02-07 10:30] LABS: C-Reactive Protein 0.8 mg/L (0-4)
[2020-02-07 11:06] LABS: Hemoglobin 7.8 g/dL (14.1-18.0)
[2020-02-07 11:22] LABS: Erythrocyte Sedimentation Rate 100 mm/hr (0-20)
== END ==
PROVIDERS: Visit Provider Podiatrist
DX: I96 Gangrene, not elsewhere classified (principal); Z98.890 Other specified postprocedural states
CPT/HCPCS: 36415; 80053; 85025; 85651; 86140

== ENCOUNTER 2020-02-11 09:30 | Outpatient (CLI) | payer MEDICAID, SELFPAY ==
[2020-02-11] VITALS (20 sets, daily range): BP systolic 112–163; BP diastolic 69–83; PULSE 68–88; RESP 18–20; TEMP 36.3–37.1; O2SAT 95–97; BMI 25.0
[2020-02-11 16:00] LABS: Hematocrit 28.2 % (42.0-52.0); Hemoglobin 9.1 g/dL (14.1-18.0)
== END 2020-02-11 15:59 | disposition home or self-care (01) ==
LOC: INF 09:30
PROVIDERS: Visit Provider Emergency Medicine
DX: D64.9 Anemia, unspecified (principal)
CPT/HCPCS: 36430; 85014; 85018; 86850; P9016

== ENCOUNTER → 2020-02-12 12:55 | Outpatient (CLI) | payer MEDICAID, SELFPAY ==
[2020-02-12 12:55] VITALS: BMI 25.0
[2020-02-12 13:28] LABS: Basophils % 0.5 % (0.1-2.0); Eosinophils # 0.1 K/mm3 (0.0-0.4); Eosinophils % 1.9 % (0.1-12.0); Hematocrit 28.4 % (42.0-52.0); Hemoglobin 9.2 g/dL (14.1-18.0); Lymphocytes # 1.6 K/mm3 (0.7-4.5); Lymphocytes % 45.6 % (10-50); Mean Corpuscular HGB Conc 32.3 g/dL (31.8-35.4); Mean Corpuscular Hemoglobin 27.9 pg (27.0-31.2); Mean Corpuscular Volume 86.3 fl (80-94); Monocytes # 0.2 K/mm3 (0.1-1.0); Monocytes % 6.4 % (1.7-9.3); Neutrophils # 1.6 K/mm3 (1.8-7.8); Neutrophils % 45.6 % (37.0-80.0); Platelet Count 149 K/mm3 (142-424); Red Blood Count 3.29 M/mm3 (4.60-6.20); Red Cell Distribution Width 17.2 % (11.5-17.5); White Blood Count 3.6 K/mm3 (4.8-10.8)
[2020-02-12 13:32] LABS: C-Reactive Protein 6.5 mg/L (0-4)
[2020-02-12 15:09] LABS: Erythrocyte Sedimentation Rate 109 mm/hr (0-20)
== END ==
PROVIDERS: PCP Emergency Medicine; Visit Provider Podiatrist
DX: Z98.890 Other specified postprocedural states (principal); I96 Gangrene, not elsewhere classified
CPT/HCPCS: 85025; 85651; 86140

== ENCOUNTER → 2020-02-12 16:33 | Outpatient (CLI) | payer MEDICAID, SELFPAY | PROVIDERS: Visit Provider Podiatrist | DX: Z98.890 Other specified postprocedural states (principal); L97.522 Non-pressure chronic ulcer of other part of left foot with fat layer exposed; I96 Gangrene, not elsewhere classified | CPT/HCPCS: 87070; 87077; 87186; 87205 ==

== ENCOUNTER → 2020-02-16 15:38 | Outpatient (REF) | payer MEDICAID, SELFPAY ==
[2020-02-16 16:32] LABS: Occult Blood,Stool Negative (Negative)
== END ==
LOC: LAB.DROPOF 15:38
PROVIDERS: Visit Provider Emergency Medicine
DX: D64.9 Anemia, unspecified (principal)
CPT/HCPCS: 82272; G0328

== ENCOUNTER → 2020-02-21 07:30 | Outpatient (CLI) | payer MEDICAID, SELFPAY ==
--- NOTE | 2020-02-21 07:31 | US_ITS ---
APPROVED REPORT Exam Type: Lower Extremity Segmental Pressures Electroencephalograph Technician: Aaliyah Arreola RVT Indications Non-healing Ulcer: RT BKA 5 MTHS AGO, LT GREAT TOE GANGRENE WITH SURGICAL RESECTION OF LT 1ST AND 2ND TOE DEC 2019, NON HEALING WOUND LT FOOT (SURGICAL INCISION Risk Factors Hypertension CAD Hyperlipidemia TIA/CVA History Cardiac Disease Diabetes Pressures/Indices Right Indices Left Indices Brachial 104.00 mmHg Brachial Low Thigh Low Thigh 125.00 mmHg 1.20 Calf Calf 119.00 mmHg 1.14 Ankle(PT) Ankle(PT) 101.00 mmHg 0.97 Ankle(DP) Ankle(DP) 48.00 mmHg 0.46 Findings RT JEFFERY:NOT OBTAINED R/T R BKA LT JEFFERY:0.97 TBI'S NOT OBTAINED LT BRACHIAL NOT OBTAINED R/T PICC LINE WAVEFORMS DECREASED AT LT ANKLE LEVEL DIMINISHED PULSES ON THE LEFT Conclusion RT JEFFERY:NOT OBTAINED R/T R BKA LT JEFFERY:0.97 TBI'S NOT OBTAINED LT BRACHIAL NOT OBTAINED R/T PICC LINE WAVEFORMS DECREASED AT LT ANKLE LEVEL DIMINISHED PULSES ON THE LEFT Electronically signed by : Kelvin Peterson MD 02/25/2020 17:37:07
--- NOTE | 2020-02-21 07:52 | XR_ITS ---
PROCEDURE: XR FOOT WT BEARING LT 3V CLINICAL INDICATION: status postop Follow-up amputation COMPARISON: No exams were available for comparison FINDINGS: Status post amputation at the mid to distal 1st metatarsal and distal 2nd metatarsal. No bony erosive process evident. Previously noted antibiotic beads are less apparent. Flexion deformity involves the 3rd 4th and 5th toes. IMPRESSION: No change status post amputation at the 1st and 2nd metatarsals Dictated by: Kelvin Peterson MD 02/21/2020 08:35 Electronically signed by Kelvin Peterson MD in [place] 02/21/2020 08:35
--- NOTE | 2020-02-21 07:52 | MR_ITS ---
PROCEDURE: MR FOOT LT WO/W CON CLINICAL INDICATION: evaluate for osteomyelitis. Recent amputation. Pain swelling and redness, evaluate for osteomyelitis, diabetes COMPARISON: XR FOOT WT BEARING LT 3V from 02/21/2020 TECHNIQUE: Routine multiplanar multi echo sequences are performed without and with gadolinium enhancement. FINDINGS: There is generalized motion artifact on several sequences causing limitation of the exam. There has been amputation of the mid to distal 1st metatarsal and distal aspect of the 2nd metatarsal. Increased T2 signal involves the distal aspect of the 1st metatarsal stump. Increased T2 signal is present distal to the stump of the 1st metatarsal with questionable small fluid collection There is generalized subcutaneous edema about the foot and ankle. The ATFL is not identified consistent with chronic tear. No other ligamentous or tendinous abnormality is evident although motion artifact does obscure fine detail. This is best demonstrated on the axial images. Moderate degree of motion is present on the coronal and sagittal images. There is some mild enhancement of the stump of the 1st metatarsal. There is some increased T2 signal within the soft tissues distal to the stump of the 2nd metatarsal. No abnormal bone marrow edema however is evident within the 2nd metatarsal. IMPRESSION: Postsurgical changes from prior amputation at the 1st and 2nd metatarsal. There is bone marrow edema at the distal aspect of the 1st metatarsal with some enhancement suggesting osteomyelitis with small fluid collection at the tip of the 1st metatarsal. There is some increased T2 signal at the distal aspect of the 2nd metatarsal which may be due to underlying inflammatory/infectious changes. Diffuse subcutaneous edema. Suspect chronic tear of the ATFL Dictated by: Kelvin Peterson MD 02/22/2020 08:10 Electronically signed by Kelvin Peterson MD in [place] 02/22/2020 08:10
[2020-02-21 09:05] LABS: Blood Urea Nitrogen 15 mg/dl (9-20); Estimated Glomerular Filt Rate 62 ml/min (>60); GFR (African American) 75 ML/MIN (>60)
--- NOTE | 2020-02-21 12:47 | XR_ITS ---
PROCEDURE: XR CHEST 2V CLINICAL HISTORY: HTN Hypertension, heart disease COMPARISON: XR CHEST PORTABLE from 12/05/2019 XR CHEST PORTABLE PICC PLAC from 12/11/2019 XR CHEST PORTABLE PICC PLAC from 01/10/2020 FINDINGS: Prior median sternotomy. Mild cardiomegaly without failure. Mild left basilar atelectasis. The remaining lungs are clear. Left upper extremity PICC line is present with tip in the region the superior vena cava. No acute bony abnormalities. IMPRESSION: Cardiomegaly with mild left basilar atelectasis Dictated by: Kelvin Peterson MD 02/21/2020 13:15 Electronically signed by Kelvin Peterson MD in [place] 02/21/2020 13:15
--- NOTE | 2020-02-21 13:16 | ECG_ITS ---
APPROVED REPORT Exam: Resting ECG HR:66 bpm ECG Measurements Heart Rate 66 AXES [place] 154 P 50 QRSd 88 QRS 37 QT 420 T 217 QTc 440 <Conclusion> Normal sinus rhythm poor r wave progression - unchanged Abnormal ECG Electronically signed by : Sanjeev Avila, 02/23/2020 06:50:28
[2020-02-21 13:21] LABS: Basophils % 0.5 % (0.1-2.0); Eosinophils # 0.2 K/mm3 (0.0-0.4); Eosinophils % 3.5 % (0.1-12.0); Hematocrit 25.9 % (42.0-52.0); Lymphocytes # 1.4 K/mm3 (0.7-4.5); Lymphocytes % 28.2 % (10-50); Mean Corpuscular HGB Conc 30.5 g/dL (31.8-35.4); Mean Corpuscular Hemoglobin 27.9 pg (27.0-31.2); Mean Corpuscular Volume 91.2 fl (80-94); Mean Platelet Volume 10.3 fl (7.4-10.4); Monocytes # 0.3 K/mm3 (0.1-1.0); Monocytes % 6.7 % (1.7-9.3); Platelet Count 199 K/mm3 (142-424); Red Blood Count 2.84 M/mm3 (4.60-6.20); Red Cell Distribution Width 18.4 % (11.5-17.5)
[2020-02-21 13:22] LABS: Chloride 105 mmol/L (98-107); Potassium 4.6 mmoL/L (3.5-5.1); Sodium 138 mmol/L (136-145)
[2020-02-21 13:25] LABS: Alanine Aminotransferase 11 U/L (12-78); Albumin Level 3.8 g/dl (3.5-5.0); Albumin/Globulin Ratio 1.2 (1.1-1.8); Alkaline Phosphatase 60 U/L (38-126); Anion Gap 9.6 mEq/L (5-15); Aspartate Amino Transferase 29 U/L (17-59); Bilirubin,Total 0.2 mg/dl (0.2-1.3); Carbon Dioxide 28 mmol/L (22.0-30.0); Globulin 3.2 g/dL (1.3-3.2); Glucose 154 mg/dl (74-100)
[2020-02-21 13:28] LABS: Hemoglobin 7.9 g/dL (14.1-18.0)
[2020-02-21 13:31] LABS: C-Reactive Protein 19.6 mg/L (0-4)
[2020-02-21 13:57] LABS: Erythrocyte Sedimentation Rate 121 mm/hr (0-20)
== END ==
PROVIDERS: PCP Emergency Medicine; Visit Provider Podiatrist
DX: T81.31XA Disruption of external operation (surgical) wound, not elsewhere classified, initial encounter (principal); Z98.890 Other specified postprocedural states; I73.9 Peripheral vascular disease, unspecified; E11.52 Type 2 diabetes mellitus with diabetic peripheral angiopathy with gangrene; L03.116 Cellulitis of left lower limb
CPT/HCPCS: 36415; 71046; 73630; 73720; 80053; 82565; 84520; 85025; 85651; 86140; 93005; 93923; A9576

== ENCOUNTER 2020-02-22 08:19 | Outpatient (CLI) | payer MEDICAID, SELFPAY ==
[2020-02-22] VITALS (20 sets, daily range): BP systolic 96–166; BP diastolic 48–78; PULSE 60–73; RESP 18–20; TEMP 36.3–37.1; O2SAT 95; BMI 26.9
[2020-02-22 15:17] LABS: Hemoglobin 9.9 g/dL (14.1-18.0)
== END 2020-02-22 15:20 | disposition home or self-care (01) ==
LOC: INF 08:19
PROVIDERS: Visit Provider Emergency Medicine
DX: D64.9 Anemia, unspecified (principal)
CPT/HCPCS: 36430; 85014; 85018; 86850; P9016

== ENCOUNTER 2020-02-26 08:48 | Inpatient (IN) | payer MEDICAID, SELFPAY ==
[2020-02-26] VITALS (26 sets, daily range): BP systolic 130–195; BP diastolic 70–105; PULSE 68–99; RESP 16–18; TEMP 36.7–36.9; O2SAT 96–100; BMI 26.2
--- NOTE | 2020-02-26 | IR_ITS ---
APPROVED REPORT Patient Location: Inpatient Veneer Clipper: JOSHUA Groves RT (R) PROCEDURES Catheter placement in the left common iliac artery Left common iliac artery antegrade angiogram with unilateral runoff to the left foot INDICATION Preoperative evaluation for transmetatarsal amputation, Shane class V and claudication, Peripheral artery disease Informed consent was obtained prior to the procedure. COMPLICATIONS none Estimated Blood Loss: less than 10 mls TECHNIQUE 1% lidocaine used to anesthetize the right groin. Right femoral artery was accessed via the Salinger technique and a 5 American sheath was placed in the right femoral artery. A 5 American rim catheter was placed in the distal abdominal aorta and used to cannulate the left common iliac artery. Unilateral iliofemoral angiography with unilateral runoff to the left foot was performed. At the end of the procedure the apparatus was removed and the patient was transferred to the postop holding area in stable condition for sheath removal ANGIOGRAPHIC RESULTS The left common internal and external iliac arteries are normal The left common femoral artery is normal The left profunda femoris artery is normal Left superficial femoral artery has mild [id number] atheromatous plaque The left popliteal artery has mild [id number]-ekttleqr atheromatous plaque The anterior tibialis artery is proximally occluded. There are very scant distal collateralization with no significant demonstrable inflow into the left foot. The left peroneal artery and left posterior tibialis artery are also proximally occluded. Very scant collateralization is identified distally IMPRESSION Severe small vessel infrageniculate disease which is neither amenable to surgical nor percutaneous revascularization PLAN 1. Proceed with transmetatarsal amputation. Patient has relatively poor severe diffuse small vessel disease. I would consider using aspirin 81 mg daily combined with Xarelto 2.5 mg p.o. twice daily following TMA surgery. 2. Should patient require a below the knee amputation there is excellent inflow blood to the proximal calf which should allow good healing of a BKA. 3. Continue risk factor modification 4. LDL less than 55 Electronically signed by : Valerio Boyce, 02/26/2020 14:39:47
--- NOTE | 2020-02-26 09:30 | SW/DCPLANNER ---
This patient currently resides at [facility]. I have spoke with Ángela from [facility] and she has stated this patient is LTC and does have bedhold days. Ángela has stated that they will accept this patient back once ready for discharge.
--- NOTE | 2020-02-26 10:03 | XR_ITS ---
PROCEDURE: XR CHEST PORTABLE CLINICAL HISTORY: sob Shortness of air COMPARISON: XR CHEST PORTABLE PICC PLAC from 12/11/2019 XR CHEST PORTABLE PICC PLAC from 01/10/2020 XR CHEST 2V from 02/21/2020 FINDINGS: There is cardiomegaly without failure. There has been a prior median sternotomy. There is a left upper extremity PICC line present with the tip in the region of the brachiocephalic vein. The lungs are clear without infiltrates, suspicious nodules, or pleural effusions. No acute bony abnormalities. IMPRESSION: Cardiomegaly. PICC line present. No acute finding Dictated by: Kelvin Peterson MD 02/26/2020 17:31 Electronically signed by Kelvin Peterson MD in [place] 02/26/2020 17:31
--- NOTE | 2020-02-26 10:06 | CA_ITS ---
APPROVED REPORT EXAM: Comprehensive 2D, Doppler, and color-flow Echocardiogram Drafter (Cad) Electrical: Gia Oakes RT(R) Ht: 6 ft 3 in Wt: 210lbs BSA: 2.24 BP: 135/74 mmHg Indications: HTN, obesity, hyperlipidemia, hyperlipidemia, gangrene left toe, hx of CABG, CAD, PAD, right AKA, new onset murmur 2D Dimensions LVOT 2.06 cm (M/F) 1.5-2.5 M-Mode Dimensions RVDd 1.47 cm (0.9-2.6) LVDd 4.36 cm (3.5-5.7) LVDs 3.43 cm (3.5-5.7) IVSd 1.14 cm (0.6-1.1) PWd 1.11 cm (0.6-1.1) EF (Teich) 43.50% FS 21.30% EDV (Teich) 85.80 mL ESV (Teich) 48.50 mL LV Diastology E/A Ratio 1.09 Mitral Valve MV A Velocity 61.00 (40-130 cm/s) Left Ventricle Left atrium is mildly enlarged, left ventricle is normal size, mild concentric left ventricular hypertrophy, visually estimated ejection fraction 45%, there is moderate hypokinesis involving mid to distal septum and apical wall, endocardial surfaces are very poorly visualized, grade 1 diastolic dysfunction seen without tissue Doppler evidence of raise left atrial pressure. Right Ventricle Right atrium and right ventricular normal size and contractility. Aortic Valve Aortic valve leaflets are thickened and calcified continue to display mobility, there is no aortic stenosis or aortic insufficiency. Mitral Valve Mitral valve leaflets are minimally thickened, there is mild mitral regurgitation. Tricuspid Valve Tricuspid valve is grossly normal, there is mild tricuspid regurgitation. Tricuspid regurgitation jet velocity is inadequate for calculation of the right ventricular systolic pressure, Pulmonic Valve Pulmonic valve is poorly visualized. Great Vessels Aortic root is normal size. Pericardium No significant pericardial effusion noted. Conclusion 1. Technically difficult study because of the patient fact in poor acoustic windows. 2. Mildly enlarged left atrium, normal left ventricular size, mild concentric left ventricular hypertrophy, visually estimated ejection fraction 45% with segmental wall motion abnormality described above. 1 diastolic dysfunction seen without tissue Doppler evidence of raise left atrial pressure. 3. Thickened and calcified aortic valve without Doppler evidence of aortic stenosis aortic insufficiency. 4. Mild mitral and tricuspid regurgitation 5. No significant pericardial effusion noted. Electronically signed by : Edd Cortes, 02/26/2020 17:30:23
--- NOTE | 2020-02-26 10:18 | PC.NURSE ---
Dr. Panda and Lei Garcia both notified about current consults on patient.
--- NOTE | 2020-02-26 10:29 | ECG_ITS ---
APPROVED REPORT Exam: Resting ECG HR:66 bpm ECG Measurements Heart Rate 66 AXES AK 160 P 37 QRSd 92 QRS -14 QT 430 T 163 QTc 450 <Conclusion> Sinus rhythm with occasional premature ventricular complexes Left ventricular hypertrophy with repolarization abnormality Abnormal ECG Electronically signed by : Sanjeev Avila, 02/27/2020 06:31:42
--- NOTE | 2020-02-26 10:57 | HMH.CNCARD ---
History of Present Illness Consult date: 02/26/20 Requesting physician: Teofilo Evans Chief complaint: Gangrene left toe Additional Medical History:: 1. Coronary artery disease A. History of non-ST elevation [place], 2013, patient left AMA B. Two-vessel CABG with MARTINEZ to LAD and SVG to PDA, 2014 2. History of cardiomyopathy A. limited echo, 09/2019 at the [facility], left ventricular ejection fraction estimated at 30 to 40%. Borderline left ventricular dilatation with mild concentric LVH noted. No significant valvular heart disease noted. 3. History of atrial flutter with RVR secondary to massive GI bleed, 09/2019, resolved after transfusion and transient use of amiodarone 4. Diabetes mellitus type 2, treated for over 40 years 5. Depression with history of bipolar disorder 6. History of obstructive sleep apnea 7. Partial nephrogenic diabetes insipidus, treated with hydrochlorothiazide, 09/2019 A. [place] secondary to acute kidney injury and medullary ischemia during shock related to sepsis and wet gangrene of the right foot secondary to limb ischemia which was complicated by hemorrhagic shock related to large duodenal ulcer bleeding, status post QUINCY embolization, 09/2019 8. Peripheral arterial disease A. 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 Due to poor wound healing subsequently had a right AKA. B. Now with gangrene of the left toe with plans for left TMA, 02/2020 9. History of large duodenal ulcer bleeding, status post QUINCY embolization and blood transfusion, 09/2019, [facility] History of present illness: 59-year-old black male admitted for gangrenous left toe with plans for left TMA tomorrow. Cardiology consulted for evaluation of the vascular system of the left leg to try to optimize healing. Patient states he has been battling this area of the foot for 1 to 2 months. Known to have a right AKA after complicated medical course at the [facility] September 2019. Please see above. History of coronary artery disease and coronary artery bypass grafting with no recent complaints of chest pain, pressure or tightness. Patient is a long-term diabetic with an hemoglobin A1c of around 8. [facility] History Medical History: Reports:: Atherosclerotic Heart Disease, Congestive Heart Failure, Coronary Artery Disease, Diabetes Mellitus Type 2, Hyperlipidemia, Hypertension, MRSA, Myocardial Infarction Denies:: Cancer, Diabetes Mellitus Type 1, Internal Pacemaker, Seizures *Have you ever received a pneumonia vaccine?: Yes *Have you received a flu vaccine this season?: Yes Other Medical History: Denies: Blood Transfusion Reaction Laterality Cases: Right: Other Other Surgeries: Yes: CABG, Cardiac Catheterization, Coronary Stent, Open Heart Surgery. No: Pacemaker Amputation: Yes (RT AKA 10/12/19) Fractures: No - *Social History Educational Level: Attended College Smoking Status: Former smoker Tobacco Type: cigarettes # Packs/Day (cigarettes): 0 Alcohol Intake: never Substance Use Type: denies use *Occupational Status:: disabled Housing: assisted living facility Household Members: caregiver *Travel in the last 8 weeks: None Family Hx:: Cancer, Diabetes Meds Home Medications Medication Instructions Recorded Confirmed Type Acetaminophen [Tylenol 500mg 500 mg PO Q4HP PRN 12/05/19 02/26/20 History tablet] Aspirin [Aspirin 81mg chewable 81 mg PO DAILY 12/05/19 02/26/20 History tab] Atorvastatin Calcium [Atorvastatin 80 mg PO HS 12/05/19 02/26/20 History 80mg Tab] Gabapentin [Gabapentin 300mg Cap] 300 mg PO TID 12/05/19 02/26/20 History Oxycodone HCl [Oxycodone 5mg tab 5 mg PO Q4HP PRN 12/05/19 02/26/20 History (IR)] Pantoprazole Sodium [Protonix 40mg 40 mg PO DAILY 12/05/19 02/26/20 History tablet] Sennosides/Docusate Sodium 1 tab PO DAILY 12/05/19 02/26/20 History [Senokot-S Tablet] Venlafaxine HCl [Venlafaxine HCl 75 mg PO DAILY 12/05/19 02/26/20 History ER
--- NOTE | 2020-02-26 11:07 | PC.NURSE ---
Spoke with Kristen Snyder regarding patient needing to be in contact for CRE and VRE. notified nurse Lizzeth Rivera.
[2020-02-26 11:30] LABS: POC Glucose,Bedside 97 (70-110)
[2020-02-26 11:46] LABS: Basophils % 0.6 % (0.1-2.0); Eosinophils # 0.2 K/mm3 (0.0-0.4); Eosinophils % 2.7 % (0.1-12.0); Hematocrit 33.3 % (42.0-52.0); Hemoglobin 10.1 g/dL (14.1-18.0); Lymphocytes % 33.6 % (10-50); Mean Corpuscular HGB Conc 30.4 g/dL (31.8-35.4); Mean Corpuscular Hemoglobin 27.1 pg (27.0-31.2); Mean Corpuscular Volume 89.1 fl (80-94); Mean Platelet Volume 9.1 fl (7.4-10.4); Monocytes # 0.5 K/mm3 (0.1-1.0); Monocytes % 8.5 % (1.7-9.3); Neutrophils # 3.2 K/mm3 (1.8-7.8); Neutrophils % 54.6 % (37.0-80.0); Platelet Count 345 K/mm3 (142-424); Red Blood Count 3.74 M/mm3 (4.60-6.20); Red Cell Distribution Width 17.4 % (11.5-17.5); White Blood Count 5.9 K/mm3 (4.8-10.8)
[2020-02-26 11:48] LABS: Chloride 102 mmol/L (98-107)
[2020-02-26 11:49] LABS: Potassium 5.2 mmoL/L (3.5-5.1); Sodium 139 mmol/L (136-145)
[2020-02-26 11:52] LABS: Anion Gap 13.2 mEq/L (5-15); Blood Urea Nitrogen 18 mg/dl (9-20); Calcium 9.7 mg/dl (8.4-10.2); Carbon Dioxide 29 mmol/L (22.0-30.0); Creatinine Clearance Estimated 83 mL/min (50-200); Estimated Glomerular Filt Rate 57 ml/min (>60); GFR (African American) 69 ML/MIN (>60); Glucose 104 mg/dl (74-100)
--- NOTE | 2020-02-26 13:53 | HMH.HP ---
*Admission Date: 02/26/20 *Chief complaint: infected foot *History of present illness: this pt has ongoing infection in lt foot and has been followed as op and treated but has continued to have infection - pt has been seen by podiatry-tient is a 59-year-old black male admitted for Diabetic left foot infection. Patient is approximately 7 weeks post op surgery date was 01/01/20: s/p Left partial 1-2nd ray amputation, BENNY, derotational skin flap, application of antibiotic beads. [facility] Patient is a long-term diabetic with an hemoglobin A1c of around 8. Labs 02/21/20:,esr 121, crp 19.6 and 02/26/20: HGB.10.1, HCT 33.3, wbc. 5.9. Overall the foot looks unchanged. No significant healing noted from last week. We discussed conservative versus surgical treatment options. Conservative treatment options include local wound care, oral and IV antibiotics, change in shoe wear, taping/padding, and off-loading. We discussed surgical intervention for amputation of the 1-2nd metatarsals vs debridement and TMA. Patient understands that there is a chance that the foot may change shape after surgery. Patient also understands that they could have wound healing complications including delayed healing and infection. We discussed that if the wound does not heal, it is possible that they may need a more proximal amputation and could result in further loss of digits, loss of partial foot or loss of leg. We discussed the risks and benefits in great detail. He is higher risk for limb loss due to PAD, right AKA, DM, neuropathy, multidrug resistant organism infection (MRSA, VRE, CRE). Other surgical risks include: prolonged pain and swelling, further infection requiring oral or IV antibiotics, delay in healing of soft tissue or bone, nerve or blood vessel damage, CRPS/RSD, DVT, anesthesia complications, and even . All questions answered. Patient verbalized understanding. Consent obtained. Called PCP and discussed plan of care. Patient is to see Dr. Evans for f/u of pre-op labs, chest xray and EKG. Patient did receive his 2 units of blood. Plan for surgery: 02/27/20 1. Left foot irrigation and debridement 2. Left transmetatarsal amputation 3. Left bone biospy E RUN-OFF IMPRESSION: Severe small vessel infrageniculate disease which is neither amenable to surgical nor percutaneous revascularization PLAN: 1. Proceed with transmetatarsal amputation. Patient has relatively poor severe diffuse small vessel disease. I would consider using aspirin 81 mg daily combined with Xarelto 2.5 mg p.o. twice daily following TMA surgery. 2. Should patient require below the knee amputation there is excellent inflow blood to proximal calf which should allow good healing of a BKA. 3. Continue risk factor modification 4. LDL less than 55 I discussed plan of care with Lei Garcia and Dr. Boyce directly. Okay to proceed with left foot amp tomorrow. I discussed with patient, he is high risk for not healing amputation and may need a BKA in the future. He understands he may need a more proximal amputation and could result in further loss of partial foot or loss of leg. We discussed the risks and benefits in great detail. He is higher risk for limb loss due to PAD, right AKA, DM, neuropathy, multidrug resistant organism infection (MRSA, VRE, CRE). Patient refuses Ortho consult for BKA evaluation today. Continue IV Dapto. NPO after midnight and plan to proceed with foot surgery. <Etta Panda - 02/26/20 17:14> We discussed conservative versus surgical treatment options. Conservative treatment options include local wound care, oral and IV antibiotics, change in shoe wear, taping/padding, and off-loading. We discussed surgical intervention for amputation of the 1-2nd metatarsals vs debridement and TMA. Patient understands that there is a chance that the foot may change shape after surgery. Patient also understands that they could have wound h
--- NOTE | 2020-02-26 14:24 | HMH.PHAVTE ---
[facility] Pharmacy VTE Monitoring - Patient Demographics Admission date: 02/26/20 Report Date: 02/26/20 Time: 14:24 Allergies/Adverse Reactions: Patient Allergies No Known Allergies Allergy (Verified 02/21/20 11:09) Height: 1.91 m Weight: 95.283 kg - VTE Risk Labs: VTE Related Lab Results Hgb 10.1 g/dL (14.1-18.0) L 02/26/20 11:15 Hct 33.3 % (42.0-52.0) L 02/26/20 11:15 Plt Count 345 K/mm3 (142-424) 02/26/20 11:15 BUN 18 mg/dl (9-20) 02/26/20 11:15 Creatinine 1.30 mg/dl (0.66-1.25) H 02/26/20 11:15 Estimated Creat Clear 83 mL/min (50-200) 02/26/20 11:15 Was VTE Risk Assessment Performed: Yes VTE Risk Level: Low Risk Clinical Trial Participant: No - Prophylaxis VTE Prophylaxis Ordered?: Yes Types of VTE Prophylaxis: TEDS Knee High (TO UNAFFECTED LIMB)
--- NOTE | 2020-02-26 16:16 | HMH.ORTHOCON ---
*Admission Date: 02/26/20 <Dulce Saldivar - 02/26/20 17:02> *Reason for consult:: Diabetic foot infection <Dulce Saldivar - 02/26/20 17:02> *History of present illness: Admission Date: 02/26/20 Chief complaint: Diabetic foot infection History of present illness: Patient is a 59-year-old black male admitted for Diabetic left foot infection. Patient is approximately 7 weeks post op surgery date was 01/01/20: s/p Left partial 1-2nd ray amputation, BENNY, derotational skin flap, application of antibiotic beads. [facility] Patient is a long-term diabetic with an hemoglobin A1c of around 8. Labs 02/21/20:,esr 121, crp 19.6 and 02/26/20: HGB.10.1, HCT 33.3, wbc. 5.9. Overall the foot looks unchanged. No significant healing noted from last week. We discussed conservative versus surgical treatment options. Conservative treatment options include local wound care, oral and IV antibiotics, change in shoe wear, taping/padding, and off-loading. We discussed surgical intervention for amputation of the 1-2nd metatarsals vs debridement and TMA. Patient understands that there is a chance that the foot may change shape after surgery. Patient also understands that they could have wound healing complications including delayed healing and infection. We discussed that if the wound does not heal, it is possible that they may need a more proximal amputation and could result in further loss of digits, loss of partial foot or loss of leg. We discussed the risks and benefits in great detail. He is higher risk for limb loss due to PAD, right AKA, DM, neuropathy, multidrug resistant organism infection (MRSA, VRE, CRE). Other surgical risks include: prolonged pain and swelling, further infection requiring oral or IV antibiotics, delay in healing of soft tissue or bone, nerve or blood vessel damage, CRPS/RSD, DVT, anesthesia complications, and even . All questions answered. Patient verbalized understanding. Consent obtained. Called PCP and discussed plan of care. Patient is to see Dr. Evans for f/u of pre-op labs, chest xray and EKG. Patient did receive his 2 units of blood. Plan for surgery: 02/27/20 1. Left foot irrigation and debridement 2. Left transmetatarsal amputation 3. Left bone biospy [facility] History Medical History: Reports:: Atherosclerotic Heart Disease, Congestive Heart Failure, Coronary Artery Disease, Diabetes Mellitus Type 2, Hyperlipidemia, Hypertension, MRSA, Myocardial Infarction Denies:: Cancer, Diabetes Mellitus Type 1, Internal Pacemaker, Seizures *Have you ever received a pneumonia vaccine?: Yes *Have you received a flu vaccine this season?: Yes Other Medical History: Denies: Blood Transfusion Reaction Laterality Cases: Right: Other Other Surgeries: Yes: CABG, Cardiac Catheterization, Coronary Stent, Open Heart Surgery. No: Pacemaker Amputation: Yes (RT AKA 10/12/19) Fractures: No - *Social History Educational Level: Attended College Smoking Status: Former smoker Tobacco Type: cigarettes # Packs/Day (cigarettes): 0 Alcohol Intake: never Substance Use Type: denies use *Occupational Status:: disabled Housing: assisted living facility Household Members: caregiver *Travel in the last 8 weeks: None Family Hx:: Cancer, Diabetes <Dulce Saldivar 02/26/20 17:02> Review of Systems - Constitutional Denies anorexia, Denies fever(s) <Dulce Saldivar 02/26/20 17:02> - Eyes Denies change in vision <Dulce Saldivar 02/26/20 17:02> - ENT Denies dizziness <Dulce Saldivar 02/26/20 17:02> - *Cardiovascular Denies chest pain, Denies shortness of breath <Dulce Saldivar 02/26/20 17:02> - *Respiratory Denies shortness of breath <Dulce Saldivar 02/26/20 17:02> - *Gastrointestinal Denies abdominal pain, Denies change in bowel habits <Dulce Saldivar 02/26/20 17:02> - *Genitourinary Denies difficulty urinating <Dulce Saldivar 02/12
[2020-02-26 18:40] LABS: POC Glucose,Bedside 93 (70-110)
[2020-02-26 20:13] LABS: POC Glucose,Bedside 133 (70-110)
[2020-02-27] VITALS (23 sets, daily range): BP systolic 101–188; BP diastolic 46–98; PULSE 67–105; RESP 12–20; TEMP 36.4–43; O2SAT 97–100; BMI 26.1; BMI 26.0
[2020-02-27 05:38] LABS: POC Glucose,Bedside 140 (70-110)
--- NOTE | 2020-02-27 05:42 | PC.NURSE ---
A&OX4. PT TOLERATING RA WELL. PT HAS REMAINED IN BED T/O THIS SHIFT. USING URINAL. AKA PRESENT TO R LEG, CDI. +2 PITTING EDEMA PRESENT TO LLE, L FOOT WRAPPED AND WARM, CDI. PT TOLERATING NPO DIET WELL. PT C/O GENERAL PAIN AT BEGINNING OF SHIFT, TREATED WITH TYLENOL PER JAN. ON REASESSMENT, PT RESTING IN BED. NO OTHER COMPLAINTS THUS FAR. R GROIN CATH SITE CDI. PT SLEEPING T/O MAJPORITY OF SHIFT. VSS WILL CONTINUE TO MONITOR.
--- NOTE | 2020-02-27 08:46 | HMH.ACPN2 ---
Internal Medicine - PN: Subj *Date: 02/27/20 *Time: 08:00 Interval history: plan for surgery today, pt states he feels well. Exam Vital signs and Labs for Last 24 Hours: Temp Pulse Resp BP Pulse Ox 98.5 F 80 16 188/92 H 98 02/27/20 08:00 02/27/20 08:00 02/27/20 08:00 02/27/20 08:00 02/27/20 08:00 Laboratory Results - last 24 hr 02/26/20 11:15: WBC 5.9, RBC 3.74 L, Hgb 10.1 L, Hct 33.3 L, MCV 89.1, MCH 27.1, MCHC 30.4 L, RDW 17.4, Plt Count 345, MPV 9.1, Neut % (Auto) 54.6, Lymph % (Auto) 33.6, [place] % (Auto) 8.5, Eos % (Auto) 2.7, Baso % (Auto) 0.6, Neut # (Auto) 3.2, Lymph # (Auto) 2.0, [place] # (Auto) 0.5, Eos # (Auto) 0.2, Baso # (Auto) 0.0 02/26/20 11:15: Sodium 139, Potassium 5.2 H, Chloride 102, Carbon Dioxide 29, Anion Gap 13.2, BUN 18, Creatinine 1.30 H, Estimated Creat Clear 83, Estimated GFR 57 L, Est GFR ( Amer) 69, Glucose 104 H, Calcium 9.7, Magnesium 2.0 02/26/20 11:17: POC Glucose 97 02/26/20 17:20: POC Glucose 93 02/26/20 19:57: POC Glucose 133 H 02/27/20 05:28: POC Glucose 140 H I & O for Last 24 hours: Intake & Output 02/24/20 02/25/20 02/26/20 02/27/20 11:59 11:59 11:59 11:59 Intake Total 839 / 839 Output Total 350 / 350 1450 / 1450 Balance -350 / -350 -611 / -611 Weight 210 lb 1 oz 210 lb 3 oz - Constitutional no acute distress - *Routine HEENT Exam Head: Present: normocephalic Eye: Present: PERRL ENT: Present: mucous membranes moist - *Routine Neck Exam Present: supple. Absent: lymphadenopathy - *Routine Respiratory Exam Present: CTA bilaterally - *Routine Cardiovascular Exam Present: RRR - *Routine Abdominal Exam Present: soft, normoactive bowel sounds. Absent: tenderness - *Routine Extremities Exam Present: amputation. Absent: cyanosis, clubbing, edema Comments: rt bka left foot dressing in place, redness and swelling to ankle - *Routine Skin Exam Present: warm, wounds. Absent: rash - *Routine Neurological Exam Present: alert, oriented X3 - Routine Psychiatric Exam Present: normal affect Assessment and Plan (1) Gangrene of toe of left foot Current visit: No Status: Acute Category: Medical Code(s): I96 - Gangrene, not elsewhere classified (2) Coronary artery disease Current visit: No Status: Chronic Qualifiers: Coronary Disease-Associated Artery/Lesion type: [place] artery [place] vs. transplanted heart: [place] heart Associated angina: without angina Qualified Code(s): I25.10 - Atherosclerotic heart disease of [place] coronary artery without angina pectoris Category: Medical Code(s): I25.10 - Atherosclerotic heart disease of [place] coronary artery without angina pectoris (3) Diabetes mellitus Current visit: No Status: Chronic Qualifiers: Diabetes mellitus type: type 2 Diabetes mellitus long term care phlebotomist insulin use: with long term care phlebotomist use Diabetes mellitus complication status: with circulatory complication Diabetes mellitus complication detail: with peripheral angiopathy with gangrene Qualified Code(s): E11.52 - Type 2 diabetes mellitus with diabetic peripheral angiopathy with gangrene; Z79.4 - MCC (current) use of insulin Category: Medical Code(s): E11.9 - Type 2 diabetes mellitus without complications (4) History of coronary artery bypass graft Current visit: No Status: Chronic Category: Surgical Code(s): Z95.1 - Presence of aortocoronary bypass graft (5) Hyperlipidemia Current visit: No Status: Chronic Qualifiers: Hyperlipidemia type: mixed hyperlipidemia Qualified Code(s): E78.2 - Mixed hyperlipidemia Category: Medical Code(s): E78.5 - Hyperlipidemia, unspecified (6) Hypertension Current visit: No Status: Chronic Qualifiers: Hypertension type: essential hypertension Qualified Code(s): I10 - Essential (primary) hypertension Category: Medical Code(s): I10 - Essential (primary) hypertension (7) Peripheral arterial occlusive disea
--- NOTE | 2020-02-27 08:55 | PC.NURSE ---
Pt to surgery @ [id number]
--- NOTE | 2020-02-27 08:55 | HMH.ORTHPN ---
Subjective Date: 02/27/20 <Dulce Saldivar - 02/27/20 09:07> Time: 08:15 <Dulce Saldivar - 02/27/20 09:07> Principal diagnosis: Diabetic foot infection <Dulce Saldivar - 02/27/20 09:07> Interval history: Patient is doing well this morning, stated he slept well with minimal pain to his left foot. Dressing remains clean dry and intact to left foot. Dressing was not changed this morning due to the patient going to the operating room later this morning. Currently NPO for surgery. Patient stated that He knows he has to lose his toes this morning,its not something I wanted to happen but he knows it has to happen . <Dulce Saldivar - 02/27/20 09:07> PN: Obj Ex Vital signs: Temp Pulse Resp BP Pulse Ox 98.5 F 73 16 133/72 97 02/27/20 14:55 02/27/20 14:55 02/27/20 14:55 02/27/20 14:55 02/27/20 14:55 <Etta Panda - 02/27/20 15:32> Temp Pulse Resp BP Pulse Ox 98.5 F 80 16 188/92 H 98 02/27/20 08:00 02/27/20 08:00 02/27/20 08:00 02/27/20 08:00 02/27/20 08:00 <Dulce Saldivar - 02/27/20 09:07> - Constitutional no acute distress <Dulce Saldivar - 02/27/20 09:07> - Routine HEENT Exam Head: Present: normocephalic <Dulce Saldivar 02/27/20 09:07> Eye: Present: PERRL <Dulce Saldivar 02/27/20 09:07> ENT: Present: mucous membranes moist <Dulce Saldivar - 02/27/20 09:07> - Routine Neck Exam Present: full ROM. Absent: JVD <Dulce Saldivar - 02/27/20 09:07> - Routine Respiratory Exam Absent: accessory muscle use, respiratory distress <Ducle Saldivar 02/27/20 09:07> - Routine Cardiovascular Exam Present: RRR <Dulce Saldivar 02/27/20 09:07> - Routine Abdominal Exam Present: soft <Dulce Saldivar 02/27/20 09:07> - Detailed Lower Extremity Exam Top foot image: 1 - 1 - S/P 01/01/20: Left partial 1-2nd ray amputation, BENNY, derotational skin flap, application of antibiotic beads. Trace of edema noted, Pedal pulses present but are weakly palpable. CFT, 4-5 sec. <Dulce Saldivar 02/27/20 09:07> - Routine Back/Spine/Pelvis Exam Back/Spine: Present: full ROM <Dulce Saldivar 02/27/20 09:07> - Routine Skin Exam Present: dry, wounds <Dulce Saldivar 02/27/20 09:07> - Routine Neurological Exam Present: oriented X3, vision grossly intact, hearing grossly intact <Dulce Saldivar 02/27/20 09:07> Progress Note: A&P (1) Gangrene of toe of left foot Status: Acute Current Visit: No (2) Coronary artery disease Status: Chronic Current Visit: No (3) Diabetes mellitus Status: Chronic Current Visit: No (4) History of coronary artery bypass graft Status: Chronic Current Visit: No (5) Hyperlipidemia Status: Chronic Current Visit: No (6) Hypertension Status: Chronic Current Visit: No (7) Peripheral arterial occlusive disease Status: Chronic Current Visit: No (8) Above knee amputation of right lower extremity Status: Acute Current Visit: No (9) Anemia Status: Acute Current Visit: No <Dulce Saldivar 02/27/20 08:55> (1) Gangrene of toe of left foot Status: Acute Current Visit: No (2) Coronary artery disease Status: Chronic Current Visit: No (3) Diabetes mellitus Status: Chronic Current Visit: No (4) History of coronary artery bypass graft Status: Chronic Current Visit: No (5) Hyperlipidemia Status: Chronic Current Visit: No (6) Hypertension Status: Chronic Current Visit: No (7) Peripheral arterial occlusive disease Status: Chronic Current Visit: No (8) Above knee amputation of right lower extremity Status: Acute Current Visit: No (9) Anemia Status: Acute Current Visit: No <Etta Panda - 02/27/20 15:32> Assessment and Plan for All Diagnoses:: Physician Attestation I was present during all of the critical components of the office v
--- NOTE | 2020-02-27 09:12 | P.PN_ITS ---
[facility] Anesthesia Checklist - Patient Identification Patient Identification: Arm Band, Verbal (Name & ) - Structural Data Admitted From: Inpatient Planned Operative Procedure/s: left foot debridement Consent for Planned Operative Procedure(s) Verified: Yes Verified Documents: History and Physical - NPO Status Verified Time NPO: 00:00 - Additional verifications Patient : No Anesthesia Reactions: No Hx Blood Transfusions: Yes Blood Transfusion Reaction: No Cephalosporin Allergy: No Previous Colonoscopy: No - Cardiovascular Assessment Heart Sounds: S1 & S2 Pulse Strength: Baseline Pulse Rhythm: Regular Peripheral Edema: No - Airway Assessment C-Spine Mobility Assessed: Yes TMJ Mobility Assessed: Yes Dentition: Good Dentition - Neurological Assessment Level of Consciousness: Awake, Alert, Appropriate Hx Seizures: No Numbness or tingling in extremities: No - Anesthesia Plan Anesthesia Risk discussed: Yes Anesthesia Plan: Verified ASA Class: III Anesthesia Type: General [facility] History I have reviewed the patient's past medical history: Yes Medical History: Reports:: Atherosclerotic Heart Disease, Congestive Heart Manuel lure, Coronary Artery Disease, Diabetes Mellitus Type 2, Hyperlipidemia, Hypertension, MRSA, Myocardial Infarction Denies:: Cancer, Diabetes Mellitus Type 1, Internal Pacemaker, Seizures *Have you ever received a pneumonia vaccine?: Yes *Have you received a flu vaccine this season?: Yes Other Medical History: Denies: Blood Transfusion Reaction Anesthesia experience/problems:: none Laterality Cases: Right: Other Other Surgeries: Yes: CABG, Cardiac Catheterization, Coronary Stent, Open Heart Surgery. No: Pacemaker Amputation: Yes (RT AKA 10/12/19) Fractures: No - *Social History Educational Level: Attended College Smoking Status: Former smoker Tobacco Type: cigarettes # Packs/Day (cigarettes): 0 Alcohol Intake: never Substance Use Type: denies use *Occupational Status:: disabled Housing: assisted living facility Household Members: caregiver *Travel in the last 8 weeks: None Family Hx:: Cancer, Diabetes
--- NOTE | 2020-02-27 11:22 | P.PN_ITS ---
[facility] Anesthesia Record Part I Intake, IV Amount: 500 Estimated blood loss (mL): 100 Urine output (mL): 0 Blood Pressure: 131/78 SaO2: 98 Pulse Rate: 87 Respiratory Rate: 12 Temperature: 97.9 F Patient is:: Drowsy, Stable Stable to PACU at:: 11:15
--- NOTE | 2020-02-27 11:22 | XR_ITS ---
PROCEDURE: XR FOOT LT MIN 3V CLINICAL INDICATION: s/p procedure Follow-up amputation COMPARISON: XR FOOT LT MIN 3V from 12/04/2019 XR FOOT LT MIN 3V from 01/01/2020 XR FOOT WT BEARING LT 3V from 01/24/2020 XR FOOT WT BEARING LT 3V from 02/21/2020 FINDINGS: There has been a transmetatarsal amputation at the proximal aspect of the metatarsals. Bandage artifact is present along with a small linear metallic density at the patient's site. Small longitudinal calcific densities along the dorsal aspect of the proximal metatarsal area and could be due to old avulsion injury or even vascular calcification. There are degenerative changes at ankle. Other findings:None. IMPRESSION: Status post transmetatarsal amputation proximally as described above Dictated by: Kelvin Peterson MD 02/27/2020 13:04 Electronically signed by Kelvin Peterson MD in [place] 02/27/2020 13:04
--- NOTE | 2020-02-27 11:35 | HMH.OPNOTE ---
Date of procedure: 02/27/20 Pre-op Diagnosis:: 1. Left foot gangrene 2. Left diabetic foot infection 3. Left foot cellulitis 4. 01/01/20: s/p Left partial 1-2nd ray amputation, BENNY, derotational skin flap, application of antibiotic beads with post op wound dehiscence 5. Left foot MRSA, VRE, CRE 6. PAD 7. Right AKA Post-op Diagnosis:: Same Procedure performed:: 1. Left foot irrigation and debridement 2. Left transmetatarsal amputation 3. Left advancement skin flap 4. Application of MICHELLE drain Surgeon:: Etta Panda DPM [employer] PROJECT MANAGER:: Dayne Stern Anesthesia: GETA, local (0.5% Marcaine plain) Estimated blood loss (mL): 10 Clinical Note:: 01/01/20: s/p Left partial 1-2nd ray amputation, BENNY, derotational skin flap, application of antibiotic beads 01/01/20, intra op bone path 1st metatarsal: Bone with focal marrow fibrosis, negative for acute osteomyelitis 01/01/20, intra op bone path 2nd metatarsal: Bone with focal marrow fibrosis, negative for acute osteomyelitis Wound culture, 01/01/20: Proteus mirabilis, enterococcus faecalis (VRE) 02/12/20, wound culture: Pseudomonas aeruginosa. Carbapenem Resistant Enterobacteriaceae. *Multidrug Resistant Organism. Left foot x-rays 3 views taken 02/21/20 compared to 01/24/2020 evaluated by myself. There has been some reabsorption of the antibiotic beads. No evidence of gas. Status post partial first and second ray amputations. MRI left foot, 02/21/20 reviewed by myself. Osteomyelitis noted to the left 1-2nd mets. Images reviewed and discussed with the patient. Official report pending. Overall the foot looks unchanged. No significant healing noted from last week. Skin cleansed with wound leather cleaner and dried thoroughly. Several sutures retained in the amputation site. Santyl applied to dark brown-black tissue in wound bed. Next betadine soaked 4x4's, dry 4x4's, kerlix and Ignacio were placed to the foot. Patient is to keep this dressing clean, dry, and intact. SNF to change daily. Continue non weight bearing, unless for transitions. In which case, he can PWB to left heel in fracture boot. Call office with any questions or concerns. We discussed conservative versus surgical treatment options. Conservative treatment options include local wound care, oral and IV antibiotics, change in shoe wear, taping/padding, and off-loading. We discussed surgical intervention for amputation of the 1-2nd metatarsals vs debridement and TMA. Patient understands that there is a chance that the foot may change shape after surgery. Patient also understands that they could have wound healing complications including delayed healing and infection. We discussed that if the wound does not heal, it is possible that they may need a more proximal amputation and could result in further loss of digits, loss of partial foot or loss of leg. We discussed the risks and benefits in great detail. He is higher risk for limb loss due to PAD, right AKA, DM, neuropathy, multidrug resistant organism infection (MRSA, VRE, CRE). Other surgical risks include: prolonged pain and swelling, further infection requiring oral or IV antibiotics, delay in healing of soft tissue or bone, nerve or blood vessel damage, CRPS/RSD, DVT, anesthesia complications, and even . All questions answered. Patient verbalized understanding. Consent obtained. Patient admitted yesterday per PCP-Dr. Evans for f/u of pre-op labs, chest xray and EKG, pre-op cardiac evaluation with run-off prior to Podiatry amputation. Operative findings:: Minimal serosanginous drainage noted. Gangrene to previous amp site, with sutures still intact and wound dehiscence noted. The left 1-2nd metatarsals soft and crumbly. 3rd toe discolored with cortical erosions of the third metatarsal head. The 4-5th met hard intact margins. Mild bleeding noted. Operative note:: On this date and time patient was deemed an appropriate surgical candidate. With informed consent signed, the patient was taken to the operating theater. The patient was position
[2020-02-27 11:54] LABS: POC Glucose,Bedside 146 (70-110)
--- NOTE | 2020-02-27 13:22 | HMH.PNCARD ---
Subjective Date: 02/27/20 Time: 13:22 Principal diagnosis: Diabetic foot infection, PAD Interval history: This is a 59-year-old black gentleman admitted to the hospital with a gangrenous left toe/foot. The patient underwent runoff yesterday which showed severe small vessel infrageniculate disease which is not amendable to surgical or percutaneous intervention. Today the patient underwent left transmetatarsal amputation. He did tolerate this well. He denies any chest pain or pressure. He denies any shortness of breath or edema. He denies any fever, chills, nausea, vomiting, diarrhea, PND, orthopnea or cough. The patient only really wants to talk about going home and he is adamant that he wants to leave the hospital today. Exam Vital signs and Labs for Last 24 Hours: Temp Pulse Resp BP Pulse Ox 98.0 F 105 H 20 129/79 100 02/27/20 12:55 02/27/20 12:55 02/27/20 12:55 02/27/20 12:55 02/27/20 12:55 Laboratory Results - last 24 hr 02/26/20 17:20: POC Glucose 93 02/26/20 19:57: POC Glucose 133 H 02/27/20 05:28: POC Glucose 140 H 02/27/20 11:48: POC Glucose 146 H I & O for Last 24 hours: Intake & Output 02/24/20 02/25/20 02/26/20 02/27/20 23:59 23:59 23:59 23:59 Intake Total 240 / 240 1099 / 1099 Output Total 1000 / 1300 1100 / 1100 Balance -760 / -1060 -1 / -1 Weight 210 lb 1 oz 210 lb 3 oz - Constitutional no acute distress, average body habitus - *Routine HEENT Exam Head: Present: normocephalic, atraumatic Eye: Present: EOMI, PERRL ENT: Present: mucous membranes moist - *Routine Neck Exam Present: supple, full ROM, normal carotid upstroke. Absent: JVD, carotid bruit, lymphadenopathy - *Routine Respiratory Exam Present: CTA bilaterally - *Routine Cardiovascular Exam Present: RRR, Normal S1, Normal S2. Absent: murmur - *Routine Abdominal Exam Present: soft, normoactive bowel sounds. Absent: tenderness, distended - *Routine Extremities Exam Absent: cyanosis, clubbing, edema Comments: Status post right [id number] amputation Status post left transmetatarsal amputation with a dressing in place and a MICHELLE drain. - *Routine Skin Exam Present: warm. Absent: erythema, rash - *Routine Neurological Exam Present: alert, oriented X3 Progress Note: A&P (1) Gangrene of toe of left foot Status: Acute Current Visit: No (2) Coronary artery disease Status: Chronic Current Visit: No (3) Diabetes mellitus Status: Chronic Current Visit: No (4) History of coronary artery bypass graft Status: Chronic Current Visit: No (5) Hyperlipidemia Status: Chronic Current Visit: No (6) Hypertension Status: Chronic Current Visit: No (7) Peripheral arterial occlusive disease Status: Chronic Current Visit: No (8) Above knee amputation of right lower extremity Status: Acute Current Visit: No (9) Anemia Status: Acute Current Visit: No Assessment and Plan for All Diagnoses:: Plan: 1. The patient is status post left transmetatarsal amputation. He did tolerate this well. This is being deferred to Dr. Panda and his primary care provider. 2. The patient does have a history of coronary artery disease. This is likely stable. He denies any chest pain or pressure. 3. His blood pressure is well controlled . 4. LDL goal is less than 55. 5. The patient is diabetic. He does need aggressive control of his diabetes. Will defer management at this to his primary care provider. 6. Patient does have a history of cardiomyopathy. He has no signs of overt congestive heart failure at this time. His cardiomyopathy is likely stable. 7. No further recommendations at this time from a cardiac standpoint. The patient is to follow-up in 1 to 2 weeks on an outpatient basis. Thank you for the opportunity to help dissipate in the care of this patient.
--- NOTE | 2020-02-27 13:51 | HMH.ANESII ---
[facility] Anesthesia Record Part II Discharge Time: 11:55 Destination: Medical Surgical Department PACU nurse assessment reviewed?: Yes Patient Condition:: Good Anesthesia Complications:: None Swallowing reflex intact?: Yes Cyanosis?: No Blood Pressure: 127/76 Pulse Rate: 75 Temperature: 97.5 F Mental Status: Alert & Oriented Pain level:: 0 Nausea and/or vomitting:: None Intake, IV Amount: 0
[2020-02-27 15:51] LABS: POC Glucose,Bedside 141 (70-110)
--- NOTE | 2020-02-27 19:13 | PC.NURSE ---
report given to vlad
--- NOTE | 2020-02-27 20:01 | PC.NURSE ---
Pt is alert and able to make needs known. Has done well post op. Has denied pain or discomfort. Have encouraged pt to elevate L leg and he has refused and stated it was fine. MICHELLE drain intact and draining, have stripped drain this shift Pt has also been educated on use of incentive spirometer and he has refused to use. VSS. CB in reach. BS x 4 quads. Lungs cta. NAD at this time. Report given to Krystian Olivera RN.
[2020-02-27 20:44] LABS: POC Glucose,Bedside 99 (70-110)
--- NOTE | 2020-02-27 21:29 | PC.NURSE ---
A&OX4. PT UP ON SIDE OF BED AT THIS TIME, EATING SNACK OF PEANUT BUTTER AND CRACKERS. PT IN GOOD SPIRITS, JOKING WITH STAFF. PT TOLERATING RA WELL. DRESSING CDI TO L FOOT. MICHELLE DRAIN PRESENT AND DRAINING SEROSANG DRAINAGE. PT EDUCATED ON ELEVATING FOOT. PT HAS REFUSED TO USE IS, EDUCATED PT ON USAGE. +2 EDEMA PRESENT TO LLE. PT C/O THROBBING PAIN OF 8 ON 1-10 SCALE, TREATED WITH PAIN MED PER JAN, ON REASSESSMENT PT RESTING IN BED. PT IN CONTACT PRECAUTIONS FOR CRE AND VRE, ALL STAFF IN APPROPRIATE PPE. CALL RUFFIN IN REACH, VSS, WILL CONTINUE TO MONITOR.
[2020-02-28 04:00] VITALS: BP 142/71; PULSE 74; RESP 16; TEMP 36.8; O2SAT 100
--- NOTE | 2020-02-28 04:28 | PC.NURSE ---
PT HAS REPORTED CONTINUING PAIN IN L FOOT, UP TO 10 ON 1-10 SCALE. ADMINISTERED MORPHINE PER MAR. ON REASSESSMENT PT SLEEPING IN BED. MICHELLE DRAIN EMPTIED T/O SHIFT, CHARTED IN I&O. PT HAS NO OTHER COMPLAINTS AND HAS GOTTEN AROUND WELL IN ROOM WITH USE OF WHEELCHAIR. VSS WILL CONTINUE TO MONITOR.
[2020-02-28 05:40] VITALS: BMI 25.7
[2020-02-28 05:57] LABS: POC Glucose,Bedside 124 (70-110)
[2020-02-28 06:38] LABS: Basophils % 0.6 % (0.1-2.0); Eosinophils # 0.2 K/mm3 (0.0-0.4); Eosinophils % 2.7 % (0.1-12.0); Hematocrit 31.9 % (42.0-52.0); Hemoglobin 9.8 g/dL (14.1-18.0); Lymphocytes # 2.4 K/mm3 (0.7-4.5); Lymphocytes % 33.2 % (10-50); Mean Corpuscular HGB Conc 30.7 g/dL (31.8-35.4); Mean Corpuscular Hemoglobin 28.3 pg (27.0-31.2); Mean Corpuscular Volume 92.4 fl (80-94); Mean Platelet Volume 8.4 fl (7.4-10.4); Monocytes # 0.7 K/mm3 (0.1-1.0); Neutrophils # 3.8 K/mm3 (1.8-7.8); Neutrophils % 53.6 % (37.0-80.0); Platelet Count 375 K/mm3 (142-424); Red Blood Count 3.45 M/mm3 (4.60-6.20); Red Cell Distribution Width 17.4 % (11.5-17.5); White Blood Count 7.1 K/mm3 (4.8-10.8)
--- NOTE | 2020-02-28 06:42 | PC.NURSE ---
REINFORCED DRESSING TO L FOOT WITH ABD PAD AND MILI WRAP X1 THIS SHIFT.
[2020-02-28 06:49] LABS: Chloride 104 mmol/L (98-107); Potassium 4.8 mmoL/L (3.5-5.1); Sodium 138 mmol/L (136-145)
[2020-02-28 06:52] LABS: Alanine Aminotransferase 13 U/L (12-78); Albumin/Globulin Ratio 1.1 (1.1-1.8); Alkaline Phosphatase 69 U/L (38-126); Anion Gap 10.8 mEq/L (5-15); Aspartate Amino Transferase 28 U/L (17-59); Bilirubin,Total 0.4 mg/dl (0.2-1.3); Blood Urea Nitrogen 26 mg/dl (9-20); Calcium 9.5 mg/dl (8.4-10.2); Carbon Dioxide 28 mmol/L (22.0-30.0); Creatinine Clearance Estimated 76 mL/min (50-200); Estimated Glomerular Filt Rate 52 ml/min (>60); GFR (African American) 63 ML/MIN (>60); Globulin 3.5 g/dL (1.3-3.2); Glucose 128 mg/dl (74-100); Total Protein,Serum 7.5 g/dl (6.3-8.2)
[2020-02-28 06:57] LABS: C-Reactive Protein 28.5 mg/L (0-4)
[2020-02-28 07:16] LABS: Erythrocyte Sedimentation Rate 87 mm/hr (0-20)
[2020-02-28 08:00] VITALS: BP 136/73; PULSE 70; RESP 16; TEMP 36.8; O2SAT 99
--- NOTE | 2020-02-28 09:51 | HMH.ORTHPN ---
Subjective Date: 02/28/20 <Dulce Saldivar - 02/28/20 10:11> Time: 09:00 <Dulce Saldivar - 02/28/20 10:11> Principal diagnosis: Diabetic foot infection, PAD <Dulce Saldivar - 02/28/20 10:11> Interval history: 59 yr. old patient Mr. Hilton, sitting up on side of bed this morning. He states he feels good,and is eager to go home today. His vitals are stable, blood pressures have much improved. Patient states that his pain is tolerable this morning. We will do his dressing change and discuss plans for discharge back to [facility] sometime today. <LuisanetaDulce melvin - 02/28/20 10:11> PN: Obj Ex Vital signs: Temp Pulse Resp BP Pulse Ox 98.2 F 70 16 136/73 99 02/28/20 08:00 02/28/20 08:00 02/28/20 08:00 02/28/20 08:00 02/28/20 08:00 <Etta Panda - 02/28/20 15:00> Temp Pulse Resp BP Pulse Ox 98.2 F 74 16 142/71 H 100 02/28/20 04:00 02/28/20 04:00 02/28/20 04:00 02/28/20 04:00 02/28/20 04:00 <Dulce Saldivar - 02/28/20 10:11> - Constitutional no acute distress <LuisdamonDulce Doyle - 02/28/20 10:11> - Routine HEENT Exam Head: Present: normocephalic <Dulce Saldivar - 02/28/20 10:11> Eye: Present: PERRL <Dulce Saldivar - 02/28/20 10:11> ENT: Present: mucous membranes moist <LuisdamonDulce Yanira - 02/28/20 10:11> - Routine Neck Exam Present: full ROM, trachea midline <LuisdamonDulce Yanira - 02/28/20 10:11> - Routine Respiratory Exam Absent: accessory muscle use, respiratory distress <LuisdamonDulce Yanira - 02/28/20 10:11> - Routine Cardiovascular Exam Present: RRR <Dulce Saldivar 02/28/20 10:11> - Routine Abdominal Exam Present: soft <Dulce Saldivar 02/28/20 10:11> - Routine Extremities Exam Present: normal capillary refill, amputation <Dulce Saldivar 02/28/20 10:11> - Detailed Lower Extremity Exam Foot/Toes: Right amputation (Previous Right AKA) <Dulce Saldivar 02/28/20 10:11> Top foot image: 1 - s/p left TMA, sutures are inact as well as the MICHELLE drain to the left medial side of foot. The site has been a small amount of swelling noted. But overall looks really good this morning. Site was cleaned with Betadine, then was redressed with Xeroform to the suture line, Betadine soaked 4 x 4's covering the Xeroform, dry 4 x 4, Kerlix, Ignacio wrap to cover and securing the MICHELLE drain without causing occlusion to the site. <Dulce Saldivar 02/28/20 13:17> Bottom foot image: 1 - Two small stiches noted the the sole of foot. This site was also cleaned with Betadine and then redressed in the dresssing covering the top of TMA site.Betadine soaked 4 x 4, dry 4 x 4, Ignacio wrap and Kerlix. <Dulce Saldivra 02/28/20 13:17> - Routine Back/Spine/Pelvis Exam Back/Spine: Present: full ROM <Dulce Saldivar 02/28/20 14:13> - Routine Skin Exam Present: dry, wounds <Dulce Saldivar 02/28/20 14:13> - Routine Neurological Exam Present: alert, oriented X3 <Dulce Saldivar 02/28/20 14:13> - Routine Psychiatric Exam Present: normal affect <Dluce Saldivar 02/28/20 14:13> Progress Note: A&P (1) Gangrene of toe of left foot Status: Acute (2) Coronary artery disease Status: Chronic (3) Diabetes mellitus Status: Chronic (4) History of coronary artery bypass graft Status: Chronic (5) Hyperlipidemia Status: Chronic (6) Hypertension Status: Chronic (7) Peripheral arterial occlusive disease Status: Chronic (8) Above knee amputation of right lower extremity Status: Acute (9) Anemia Status: Acute <Dulce Saldivar 02/28/20 14:59> (1) Gangrene of toe of left foot Status: Acute (2) Coronary artery disease Status: Chronic (3) Diabetes mellitus Status: Chronic (4) History of coronary artery bypass graft Status: Chronic (5) Hyperlipidemia Statu
[2020-02-28 11:16] LABS: POC Glucose,Bedside 135 (70-110)
--- NOTE | 2020-02-28 12:21 | P.DS_ITS ---
General - General Admission date:: 02/26/20 Discharge date: 02/28/20 HPI HPI: this pt has ongoing infection in lt foot and has been followed as op and treated but has continued to have infection - pt has been seen by podiatry-tient is a 59-year-old black male admitted for Diabetic left foot infection. Patient is approximately 7 weeks post op surgery date was 01/01/20: s/p Left partial 1-2nd ray amputation, BENNY, derotational skin flap, application of antibiotic beads. [facility] Patient is a long-term diabetic with an hemoglobin A1c of around 8. Labs 02/21/20:,esr 121, crp 19.6 and 02/26/20: HGB.10.1, HCT 33.3, wbc. 5.9. Overall the foot looks unchanged. No significant healing noted from last week. We discussed conservative versus surgical treatment options. Conservative treatment options include local wound care, oral and IV antibiotics, change in shoe wear, taping/padding, and off-loading. We discussed surgical intervention for amputation of the 1-2nd metatarsals vs debridement and TMA. Patient understands that there is a chance that the foot may change shape after surgery. Patient also understands that they could have wound healing complications including delayed healing and infection. We discussed that if the wound does not heal, it is possible that they may need a more proximal amputation and could result in further loss of digits, loss of partial foot or loss of leg. We discussed the risks and benefits in great detail. He is higher risk for limb loss due to PAD, right AKA, DM, neuropathy, multidrug resistant organism infection (MRSA, VRE, CRE). Other surgical risks include: prolonged pain and swelling, further infection requiring oral or IV antibiotics, delay in healing of soft tissue or bone, nerve or blood vessel damage, CRPS/RSD, DVT, anesthesia complications, and even . All questions answered. Patient verbalized understanding. Consent obtained. Called PCP and discussed plan of care. Patient is to see Dr. Evans for f/u of pre-op labs, chest xray and EKG. Patient did receive his 2 units of blood. Plan for surgery: 02/27/20 1. Left foot irrigation and debridement 2. Left transmetatarsal amputation 3. Left bone biospy E RUN-OFF IMPRESSION: Severe small vessel infrageniculate disease which is neither amenable to surgical nor percutaneous revascularization PLAN: 1. Proceed with transmetatarsal amputation. Patient has relatively poor severe diffuse small vessel disease. I would consider using aspirin 81 mg daily combined with Xarelto 2.5 mg p.o. twice daily following TMA surgery. 2. Should patient require below the knee amputation there is excellent inflow blood to proximal calf which should allow good healing of a BKA. 3. Continue risk factor modification 4. LDL less than 55 I discussed plan of care with Lei Garcia and Dr. Boyce directly. Okay to proceed with left foot amp tomorrow. I discussed with patient, he is high risk for not healing amputation and may need a BKA in the future. He understands he may need a more proximal amputation and could result in further loss of partial foot or loss of leg. We discussed the risks and benefits in great detail. He is higher risk for limb loss due to PAD, right AKA, DM, neuropathy, multidrug resistant organism infection (MRSA, VRE, CRE). Patient refuses Ortho consult for BKA evaluation today. Continue IV Dapto. NPO after midnight and plan to proceed with foot surgery. <Etta Panda - 02/26/20 17:14> We discussed conservative versus surgical treatment options. Conservative treatment options include local wound care, oral and IV antibiotics, change in shoe wear, taping/padding, a
--- NOTE | 2020-02-28 13:38 | PC.NURSE ---
report given to Gabriella Warren RN at [place]
--- NOTE | 2020-02-28 13:38 | HMH.CONS ---
*Admission Date: 02/26/20 *History of present illness: 59 yo we are ask to see regarding anemia. his most recetn hgb was 10.1. remainder of cbc including diff is normal. apparently he has needed blood transfusions as recent as end of january. he denies obvious bleeding. he is admitted now and per him going to be discharged today. he is admitted for gangrous toe. he is s/p surgery. he is being treated for mrsa and vre per chart. [facility] History Medical History: Reports:: Atherosclerotic Heart Disease, Congestive Heart Failure, Coronary Artery Disease, Diabetes Mellitus Type 2, Hyperlipidemia, Hypertension, MRSA, Myocardial Infarction Denies:: Cancer, Diabetes Mellitus Type 1, Internal Pacemaker, Seizures *Have you ever received a pneumonia vaccine?: Yes *Have you received a flu vaccine this season?: Yes Other Medical History: Denies: Blood Transfusion Reaction Anesthesia experience/problems:: none Laterality Cases: Right: Other Other Surgeries: Yes: CABG, Cardiac Catheterization, Coronary Stent, Open Heart Surgery. No: Pacemaker Amputation: Yes (RT AKA 10/12/19) Fractures: No - *Social History Educational Level: Attended College Smoking Status: Former smoker Tobacco Type: cigarettes # Packs/Day (cigarettes): 0 Alcohol Intake: never Substance Use Type: denies use *Occupational Status:: disabled Housing: assisted living facility Household Members: caregiver *Travel in the last 8 weeks: None Family Hx:: Cancer, Diabetes Review of Systems - *Musculoskeletal Reports abnormal walking - *Neurologic Denies confusion, Denies dizziness, Denies fainting, Denies tingling Meds Home Medications Medication Instructions Recorded Confirmed Type Acetaminophen [Tylenol 500mg 500 mg PO Q4HP PRN 12/05/19 02/26/20 History tablet] Aspirin [Aspirin 81mg chewable 81 mg PO DAILY 12/05/19 02/26/20 History tab] Atorvastatin Calcium [Atorvastatin 80 mg PO HS 12/05/19 02/26/20 History 80mg Tab] Gabapentin [Gabapentin 300mg Cap] 300 mg PO TID 12/05/19 02/26/20 History Oxycodone HCl [Oxycodone 5mg tab 5 mg PO Q4HP PRN 12/05/19 02/26/20 History (IR)] Pantoprazole Sodium [Protonix 40mg 40 mg PO DAILY 12/05/19 02/26/20 History tablet] Sennosides/Docusate Sodium 1 tab PO DAILY 12/05/19 02/26/20 History [Senokot-S Tablet] Venlafaxine HCl [Venlafaxine HCl 75 mg PO DAILY 12/05/19 02/26/20 History ER] hydroCHLOROthiazide 12.5 mg PO DAILY 12/05/19 02/26/20 History [Hydrochlorothiazide] lisinopriL [Lisinopril 10mg Tab] 10 mg PO DAILY 12/05/19 02/26/20 History polyethylene glycoL 3350 17 gm PO DAILY 12/05/19 02/26/20 History [Polyethylene Glycol 3350] Rivaroxaban [Xarelto 2.5mg Tab*] 2.5 mg PO BID 12/31/19 02/26/20 History carvedilol 6.25 mg tablet 6.25 mg PO BID 01/31/20 02/26/20 History buspirone 10 mg tablet 10 mg PO TID tab 02/21/20 02/26/20 History DAPTOmycin [Daptomycin] 1,000 mg IV HS 02/26/20 02/26/20 History Lactulose [Lactulose 10gm/15ml 20 gm PO DAILYP PRN 02/26/20 02/26/20 History Oral Soln] Mirtazapine [Remeron 15mg tablet] 15 mg PO HS 02/26/20 02/26/20 History Multivitamin 1 each PO DAILY 02/26/20 02/26/20 History Oxycodone HCl [Oxycodone (IR) 10mg 10 mg PO Q6HP PRN 02/26/20 02/26/20 History Tab] Promethazine HCl [Phenergan 25mg 25 mg PO Q4-6H PRN 02/26/20 02/26/20 History tablet] Sulfamethoxazole/Trimethoprim 1 each PO BID 02/26/20 02/26/20 History [Bactrim DS tablet] ondansetron HCL [Ondansetron HCl] 4 mg PO Q8HP PRN 02/26/20 02/26/20 History Allergies Allergy/AdvReac Type Severity Reaction Status Date / Time No Known Allergies Allergy Verified 02/21/20 11:09 Exam Vital signs and Labs for Last 24 Hours: Temp Pulse Resp BP Pulse Ox 98.2 F 70 16 136/73 99 02/28/20 08:00 02/28/20 08:00 02/28/20 08:00 02/28/20 08:00 02/28/20 08:00 Laboratory Results - last 24 hr 02/27/20 15:42: POC Glucose 141 H 02/27/20 20:25: POC Glucose 99 02/28/20 05:35: POC G
--- NOTE | 2020-02-28 13:59 | SW/DCPLANNER ---
This patient will discharge back to [facility] today. I will arrange for [employer] once patient is ready for discharge.
== END 2020-02-28 14:56 | DRG 240 ==
PROVIDERS: Internal Medicine; Nurse Practitioner Family; Physician Assistant; Podiatrist; Admitting Provider Emergency Medicine; PCP Emergency Medicine; Visit Provider Emergency Medicine
PROC: B41G1ZZ Fluoroscopy of Left Lower Extremity Arteries using Low Osmolar Contrast (ICD-10-PCS; principal; 2020-02-26 12:00)
PROC: 0Y6N0Z0 Detachment at Left Foot, Complete, Open Approach (ICD-10-PCS; principal; 2020-02-27 09:30)
DX: E11.52 Type 2 diabetes mellitus with diabetic peripheral angiopathy with gangrene (principal); M86.172 Other acute osteomyelitis, left ankle and foot; L03.116 Cellulitis of left lower limb; T81.31XA Disruption of external operation (surgical) wound, not elsewhere classified, initial encounter; I70.262 Atherosclerosis of native arteries of extremities with gangrene, left leg; L97.526 Non-pressure chronic ulcer of other part of left foot with bone involvement without evidence of necrosis; Z95.5 Presence of coronary angioplasty implant and graft; I25.10 Atherosclerotic heart disease of native coronary artery without angina pectoris; I11.0 Hypertensive heart disease with heart failure; I50.9 Heart failure, unspecified; Z79.4 Long term (current) use of insulin; Z95.1 Presence of aortocoronary bypass graft; Z87.891 Personal history of nicotine dependence
CPT/HCPCS: 28805; 36415; 71045; 73630; 80048; 80053; 82962; 83735; 85025; 85651; 86140; 87040; 87070; 87077; 87081; 87186; 87205; 88304; 88307; 88311; 93005; 93306; 99152; C1725; C1769; C1894; J0878; J1335; J1644; J2405; Q9966

== ENCOUNTER → 2020-03-25 18:45 | Outpatient (CLI) | payer MEDICAID, SELFPAY | PROVIDERS: Visit Provider Podiatrist | DX: I96 Gangrene, not elsewhere classified (principal); T81.31XD Disruption of external operation (surgical) wound, not elsewhere classified, subsequent encounter; Z98.890 Other specified postprocedural states | CPT/HCPCS: 87070; 87077; 87186; 87205 ==

== ENCOUNTER → 2020-03-31 09:57 | Outpatient (CLI) | payer MEDICAID, SELFPAY ==
[2020-03-31 09:47] VITALS: BMI 26.9
--- NOTE | 2020-03-31 10:00 | XR_ITS ---
PROCEDURE: XR FOOT WT BEARING LT 3V CLINICAL INDICATION: postop views Follow-up amputation COMPARISON: XR FOOT LT MIN 3V from 01/01/2020 XR FOOT WT BEARING LT 3V from 01/24/2020 XR FOOT WT BEARING LT 3V from 02/21/2020 XR FOOT LT MIN 3V from 02/27/2020 FINDINGS: Status post transmetatarsal amputation with good alignment with generalized vascular calcification noted. Bandage artifact present. There are degenerative changes of the ankle IMPRESSION: Status post transmetatarsal amputation Dictated by: Kelvin Peterson MD 03/31/2020 11:52 Electronically signed by Kelvin Peterson MD in [place] 03/31/2020 11:52
[2020-03-31 10:02] LABS: Basophils # 0.2 K/mm3 (0-0.2); Basophils % 3.3 % (0.1-2.0); Eosinophils # 0.2 K/mm3 (0.0-0.4); Eosinophils % 3.7 % (0.1-12.0); Hematocrit 28.9 % (42.0-52.0); Hemoglobin 9.1 g/dL (14.1-18.0); Lymphocytes # 1.7 K/mm3 (0.7-4.5); Lymphocytes % 28.1 % (10-50); Mean Corpuscular HGB Conc 31.5 g/dL (31.8-35.4); Mean Corpuscular Hemoglobin 27.7 pg (27.0-31.2); Mean Corpuscular Volume 87.8 fl (80-94); Mean Platelet Volume 7.6 fl (7.4-10.4); Monocytes # 0.5 K/mm3 (0.1-1.0); Neutrophils # 3.5 K/mm3 (1.8-7.8); Neutrophils % 56.8 % (37.0-80.0); Platelet Count 421 K/mm3 (142-424); Red Cell Distribution Width 18.1 % (11.5-17.5); White Blood Count 6.1 K/mm3 (4.8-10.8)
--- NOTE | 2020-03-31 10:06 | XR_ITS ---
PROCEDURE: XR CHEST AP CLINICAL HISTORY: PICC line placement COMPARISON: XR CHEST PORTABLE PICC PLAC from 01/10/2020 XR CHEST 2V from 02/21/2020 XR CHEST PORTABLE from 02/26/2020 FINDINGS: The left upper extremity PICC line tip is now in the region of the subclavian vein at the junction of the mid and medial 3rd of the clavicle level. Prior CABG. Normal heart size. Clear lungs. No acute bony abnormalities. IMPRESSION: Left upper extremity PICC line tip in the mid subclavian vein region Dictated by: Kelvin Peterson MD 03/31/2020 10:54 Electronically signed by Kelvin Peterson MD in [place] 03/31/2020 10:54
[2020-03-31 10:09] LABS: Alanine Aminotransferase 9 U/L (12-78); Alkaline Phosphatase 83 U/L (38-126); Aspartate Amino Transferase 26 U/L (17-59); Bilirubin,Total 0.2 mg/dl (0.2-1.3); Blood Urea Nitrogen 24 mg/dl (9-20); Calcium 7.6 mg/dl (8.4-10.2); Carbon Dioxide 32 mmol/L (22.0-30.0); Chloride 103 mmol/L (98-107); Creatinine Clearance Estimated 85 mL/min (50-200); Estimated Glomerular Filt Rate 57 ml/min (>60); GFR (African American) 69 ML/MIN (>60); Glucose 173 mg/dl (74-100); Sodium 138 mmol/L (136-145)
[2020-03-31 10:14] LABS: C-Reactive Protein 12.7 mg/L (0-4)
[2020-03-31 10:16] LABS: Hemoglobin A1C 6.1 % (4.0-6.0)
[2020-03-31 10:30] LABS: Erythrocyte Sedimentation Rate > 140 mm/hr (0-20)
--- NOTE | 2020-03-31 12:37 | XR_ITS ---
PROCEDURE: XR CHEST PORTABLE CLINICAL HISTORY: picc line placement COMPARISON: XR CHEST 2V from 02/21/2020 XR CHEST PORTABLE from 02/26/2020 XR CHEST AP from 03/31/2020 FINDINGS: A new right upper extremity PICC line has been inserted. The tip is in good position in the region the superior vena cava. There is mild cardiomegaly without failure. There has been a prior median sternotomy. The lungs are clear No acute bony abnormalities. IMPRESSION: New right-sided PICC line in good position Dictated by: Kelvin Peterson MD 03/31/2020 12:59 Electronically signed by Kelvin Peterson MD in [place] 03/31/2020 12:59
== END ==
PROVIDERS: PCP Emergency Medicine; Visit Provider Podiatrist
DX: I96 Gangrene, not elsewhere classified (principal); Z98.890 Other specified postprocedural states
CPT/HCPCS: 36569; 71045; 73630; 80053; 83036; 85025; 85651; 86140; C1751

== ENCOUNTER → 2020-06-02 16:47 | Outpatient (CLI) | payer MEDICAID, SELFPAY | PROVIDERS: Visit Provider Podiatrist | DX: T81.31XA Disruption of external operation (surgical) wound, not elsewhere classified, initial encounter (principal) | CPT/HCPCS: 87070; 87077; 87186; 87205 ==

== ENCOUNTER → 2020-07-14 10:30 | Outpatient (CLI) | payer MEDICAID, SELFPAY ==
--- NOTE | 2020-07-14 10:35 | XR_ITS ---
PROCEDURE: XR FOOT WT BEARING LT 3V CLINICAL INDICATION: post foot surgery Follow-up surgery COMPARISON: CR XR FOOT WT BEARING LT 3V from 01/24/2020 CR XR FOOT WT BEARING LT 3V from 02/21/2020 CR XR FOOT LT MIN 3V from 02/27/2020 CR XR FOOT WT BEARING LT 3V from 03/31/2020 FINDINGS: Status post amputation at the base of the metatarsals. No obvious bony erosive process. There is irregularity of the soft tissue at the stump of the amputation which could be due to the defect from the surgery. Please correlate with clinical findings as ulcerations with infection could have a similar appearance. IMPRESSION: Postsurgical changes from transmetatarsal amputation with soft tissue irregularity at the amputation site which needs correlation with direct visualization. Dictated by: Kelvin Peterson MD 07/14/2020 11:14 Kelvin Peterson MD in [place] 07/14/2020 11:14
== END ==
PROVIDERS: PCP Emergency Medicine; Visit Provider Podiatrist
DX: Z98.890 Other specified postprocedural states (principal); M79.672 Pain in left foot; E11.52 Type 2 diabetes mellitus with diabetic peripheral angiopathy with gangrene; Z79.4 Long term (current) use of insulin
CPT/HCPCS: 73630

== ENCOUNTER → 2020-07-29 11:52 | Outpatient (CLI) | payer MEDICAID, SELFPAY ==
[2020-07-30 13:12] LABS: Covid-19 Nasal PCR Sendout Lex Not Detected
== END ==
PROVIDERS: Visit Provider Emergency Medicine
DX: Z03.818 Encounter for observation for suspected exposure to other biological agents ruled out (principal)
CPT/HCPCS: U0004

== ENCOUNTER → 2020-08-12 12:08 | Outpatient (CLI) | payer MEDICAID, SELFPAY | PROVIDERS: Visit Provider Emergency Medicine | DX: Z03.818 Encounter for observation for suspected exposure to other biological agents ruled out (principal) | CPT/HCPCS: U0003 ==

== ENCOUNTER → 2020-09-22 03:19 | Outpatient (CLI) | payer MEDICAID, SELFPAY | PROVIDERS: Visit Provider Emergency Medicine | DX: Z03.818 Encounter for observation for suspected exposure to other biological agents ruled out (principal) | CPT/HCPCS: U0003 ==

== ENCOUNTER 2020-09-24 06:23 | Day surgery (SDC) | payer MEDICAID, SELFPAY ==
[2020-09-24] VITALS (13 sets, daily range): BP systolic 113–200; BP diastolic 59–103; PULSE 72–93; RESP 18; TEMP 36.1–36.8; O2SAT 97–98; BMI 28.7
--- NOTE | 2020-09-24 07:58 | HMH.ANESCL ---
[facility] Anesthesia Checklist - Patient Identification Patient Identification: Arm Band - Structural Data Admitted From: Home Planned Operative Procedure/s: Left partial foot amputation Consent for Planned Operative Procedure(s) Verified: Yes Verified Documents: Surgical Consent, History and Physical - NPO Status Verified Time NPO: 00:00 - Additional verifications Anesthesia Reactions: No Hx Blood Transfusions: Yes Blood Transfusion Reaction: No - Airway Assessment C-Spine Mobility Assessed: Yes (mp2) TMJ Mobility Assessed: Yes Dentition: Good Dentition - Neurological Assessment Level of Consciousness: Awake, Alert - Anesthesia Plan Anesthesia Risk discussed: Yes Anesthesia Plan: Verified ASA Class: III Anesthesia Type: General [facility] History I have reviewed the patient's past medical history: Yes Medical History: Reports:: Atherosclerotic Heart Disease, Congestive Heart Failure, Coronary Artery Disease, Diabetes Mellitus Type 2, Hyperlipidemia, Hypertension, Myocardial Infarction, Peripheral Artery Disease, Peripheral Vascular Disease Denies:: Cancer, Diabetes Mellitus Type 1, Internal Pacemaker, MRSA, Seizures *Have you ever received a pneumonia vaccine?: No *Have you received a flu vaccine this season?: Yes Other Medical History: Reports: Anemia. Denies: Blood Transfusion Reaction Anesthesia experience/problems:: nac Laterality Cases: Bilateral: Other Other Surgeries: Yes: CABG, Cardiac Catheterization, Coronary Stent, Open Heart Surgery. No: Pacemaker Amputation: Yes (RT AKA 10/12/19) Fractures: No - *Social History Smoking Status: Former smoker Tobacco Type: cigarettes # Packs/Day (cigarettes): 0 Alcohol Intake: never Substance Use Type: denies use *Occupational Status:: disabled Housing: alf Household Members: none *Travel in the last 8 weeks: None Family Hx:: No significant family history
[2020-09-24 08:51] LABS: POC Glucose,Bedside 107 (70-110)
--- NOTE | 2020-09-24 09:15 | XR_ITS ---
PROCEDURE: XR FOOT LT MIN 3V CLINICAL INDICATION: Post op amp Follow-up surgery ready COMPARISON: CR XR FOOT LT MIN 3V from 02/27/2020 CR XR FOOT WT BEARING LT 3V from 03/31/2020 CR XR FOOT WT BEARING LT 3V from 07/14/2020 CR XR FOOT LT 2V from 09/24/2020 FINDINGS: Status post amputation now at the mid foot at the navicular cuneiform junction and proximal cuboid area. Multiple antibiotic beads and surgical drain is present. There is some calcification noted along the medial aspect of the navicular. The navicular is slightly displaced medially. IMPRESSION: Extension of amputation site with antibiotic beads and surgical drain as described above Dictated by: Kelvin Peterson MD 09/24/2020 14:21 Kelvin Peterson MD in [place] 09/24/2020 14:21
--- NOTE | 2020-09-24 09:16 | XR_ITS ---
PROCEDURE: XR CHEST PORTABLE PICC PLAC CLINICAL HISTORY: Confirm PICC line placement COMPARISON: CR XR CHEST PORTABLE from 02/26/2020 CR XR CHEST PORTABLE from 03/31/2020 CR XR CHEST AP from 03/31/2020 FINDINGS: There has been a prior median sternotomy. There is mild cardiomegaly without failure. Atelectatic or fibrotic changes are present in the left lung base. There is a left upper extremity PICC line present. The line is looped in the axillary region with the tip projecting at the medial aspect of the left subclavian vein. Repositioning suggested. No acute bony abnormalities. IMPRESSION: Malposition of the PICC line as described above. Dictated by: Kelvin Peterson MD 09/24/2020 12:01 Kelvin Peterson MD in [place] 09/24/2020 12:01
--- NOTE | 2020-09-24 09:19 | XR_ITS ---
PROCEDURE: XR FOOT LT 2V CLINICAL INDICATION: AMPUTATION IN OR COMPARISON: CR XR FOOT WT BEARING LT 3V from 02/21/2020 CR XR FOOT LT MIN 3V from 02/27/2020 CR XR FOOT WT BEARING LT 3V from 03/31/2020 CR XR FOOT WT BEARING LT 3V from 07/14/2020 FINDINGS: Fluoroscopy time: 2 seconds single image submitted in preparation for the amputation. IMPRESSION: Fluoro guidance for amputation Dictated by: Kelvin Peterson MD 09/24/2020 16:07 Kelvin Peterson MD in [place] 09/24/2020 16:07
--- NOTE | 2020-09-24 11:08 | HMH.OPNOTE ---
Date of procedure: 09/24/20 Pre-op Diagnosis:: 1. Left foot chronic osteomyelitis 2. 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 02/27/20: s/p left TMA, wound dehiscence 4. 01/01/20: s/p left partial 1-2nd ray amputation, BENNY, derotational skin flap, application of antibiotic beads with post op wound dehiscence 5. Left foot history of MRSA, VRE, CRE, Psuedomonas 6. PAD 7. Right AKA Post-op Diagnosis:: Same Procedure performed:: 1. Left partial foot amputation (Lisfranc amp, midtarsal disarticulation) 2. Left foot irrigation and debridement non-viable soft tissue, bone 3. Left foot bone biospy 4. Left navicular bone cyst curettage, application of graft 5. Left foot application of antibiotic beads 6. Application of MICHELLE drain Surgeon:: Etta Panda DPM FOOD TASTER:: Sanjeev Moraes Anesthesia: GETA, local (30cc 0.5% marcaine plain) Estimated blood loss (mL): 30 Clinical Note:: Patient is a 59 diabetic male with severe PAD who had surgery on 02/27/20, S/p: left foot irrigation and debridement, transmetatarsal amputation, advancement skin flap, application of MICHELLE drain. The wound had dehiscence and has been treated with oral, IV abx, local wound care. He sees Dr. Brown, ID. Difficulty in healing wound site, multi drug resistance and re-infection with ostemyelitis complicated case. We discussed conservative versus surgical treatment options. Conservative treatment options include local wound care, oral and IV antibiotics, change in shoe wear, taping/padding, and off-loading. We discussed surgical intervention for partial amputation of the left foot. Patient understands that there is a chance that the foot may change shape after surgery. Patient also understands that they could have wound healing complications including delayed healing and infection. We discussed that if the wound does not heal, it is possible that they may need a more proximal amputation and could result in further loss of partial foot or loss of leg. We discussed the risks and benefits in great detail. Other surgical risks include: prolonged pain and swelling, further infection requiring oral or IV antibiotics, delay in healing of soft tissue or bone, nerve or blood vessel damage, CRPS/RSD, DVT, anesthesia complications, and even . All questions answered. Patient verbalized understanding. Consent obtained. Patient will need medical clearance per Dr. Evans and cardiac clearance granted. Pre-op labs: ESR, CRP, Ha1c, CBC, CMP, EKG, CXR. Plan for PICC placement today. Then patient is to follow up with Dr. Brown, ID for IV antibiotic management. Operative findings:: No serosanginous or purulent drainage noted. Dark skin noted to previous amp site, with wound dehiscence noted. Pre-debridement the wound base 100% fibrotic yellow with slough and measured: 7.2x0.9x0.2cm. The left 1-2nd metatarsals were soft and crumbly. Cortical erosions and calos changes noted the 3-5th metatarsal bases and cuneiforms. The navicular had one bone cyst noted, likely consistent with arthritis. Area was curetted out and no signs of infection noted to the navicular. No evidence of infection tracking up the tendons. There was some bleeding noted. Operative note:: On this date and time patient was deemed an appropriate surgical candidate. With informed consent signed, the patient was taken to the operating theater. The patient was positioned supine. General anesthesia was induced. No tourniquet used. The left extremity was prepped and draped in normal sterile fashion. The left foot was blocked at the ankle with 30cc 0.5% marcaine plain. Left foot irrigation and debridement: Attention was directed to left foot where previous transmetatarsal amputation had been performed. There was wound dehiscence noted. There was fibrotic slough noted to the previous surgical site. There was mild skin sloughing noted with dusky discoloration noted. Minimal quinn wound cellulitis noted. Utilizing a 15 blade and forc
--- NOTE | 2020-09-24 11:12 | P.PN_ITS ---
[facility] Anesthesia Record Part I Intake, IV Amount: 900 Estimated blood loss (mL): 10 Urine output (mL): 0 Blood Products used (#): none Blood Pressure: 134/75 SaO2: 97 Pulse Rate: 88 Respiratory Rate: 18 Temperature: 97.9 F Patient is:: Drowsy, Stable Stable to PACU at:: 11:09
--- NOTE | 2020-09-24 11:19 | PC.NURSE ---
rad @ bedside getting post-op views
--- NOTE | 2020-09-24 11:39 | PC.NURSE ---
juli fung rn remains at bedside doing picc
--- NOTE | 2020-09-24 11:39 | PC.NURSE ---
[id number]- c kenton rn @ bedside doing picc
[2020-09-24 11:48] LABS: POC Glucose,Bedside 183 (70-110)
--- NOTE | 2020-09-24 12:19 | SUR.PHASEII ---
Kulwinder REN readjusting PICC line. Xray at BS to confirm placement
--- NOTE | 2020-09-24 12:24 | XR_ITS ---
PROCEDURE: XR CHEST PORTABLE PICC PLAC CLINICAL INDICATION: PICC line placement COMPARISON: CR XR CHEST PORTABLE from 03/31/2020 CR XR CHEST AP from 03/31/2020 CR XR CHEST PORTABLE PICC PLAC from 09/24/2020 FINDINGS: Left upper extremity PICC line is present and the loop is no longer apparent within the PICC line. The tip is in the region the aortocaval region and could be withdrawn approximately 3.5 cm. There is mild cardiomegaly without failure. Lungs are clear. IMPRESSION: Left upper extremity PICC line slightly deep at the aortocaval region and could be withdrawn approximately 3-4 cm. This report was discussed with Moiz by telephone. 09/24/2020 at 1 p.m. Dictated by: Kelvin Peterson MD 09/24/2020 13:05 Kelvin Peterson MD in [place] 09/24/2020 13:05
--- NOTE | 2020-09-24 13:11 | P.PN_ITS ---
[facility] Anesthesia Record Part II Discharge Time: 11:39 Destination: Surgical Day Care (OP Surgery) PACU nurse assessment reviewed?: Yes Patient Condition:: Good Anesthesia Complications:: None Swallowing reflex intact?: Yes Cyanosis?: No Blood Pressure: 191/85 Pulse Rate: 89 Temperature: 98.2 F Mental Status: Alert & Oriented Pain level:: 0 Nausea and/or vomitting:: None Intake, IV Amount: 35
== END 2020-09-24 13:23 ==
LOC: OR 06:24
PROVIDERS: PCP Emergency Medicine; Visit Provider Podiatrist
PROC: (CPT 28805; principal; 2020-09-24 08:45)
DX: E11.52 Type 2 diabetes mellitus with diabetic peripheral angiopathy with gangrene (principal); I70.262 Atherosclerosis of native arteries of extremities with gangrene, left leg; E11.621 Type 2 diabetes mellitus with foot ulcer; M86.672 Other chronic osteomyelitis, left ankle and foot; L97.524 Non-pressure chronic ulcer of other part of left foot with necrosis of bone; M85.672 Other cyst of bone, left ankle and foot; I25.10 Atherosclerotic heart disease of native coronary artery without angina pectoris; I11.0 Hypertensive heart disease with heart failure; L03.116 Cellulitis of left lower limb; E11.628 Type 2 diabetes mellitus with other skin complications; I50.9 Heart failure, unspecified; E78.5 Hyperlipidemia, unspecified; T87.81 Dehiscence of amputation stump; I25.2 Old myocardial infarction; Z86.14 Personal history of Methicillin resistant Staphylococcus aureus infection; Z83.3 Family history of diabetes mellitus; Z87.891 Personal history of nicotine dependence; Z89.611 Acquired absence of right leg above knee; Z89.432 Acquired absence of left foot; Z79.01 Long term (current) use of anticoagulants; Z79.82 Long term (current) use of aspirin; Z79.4 Long term (current) use of insulin; Z79.891 Long term (current) use of opiate analgesic; Z79.899 Other long term (current) drug therapy; Z95.5 Presence of coronary angioplasty implant and graft; Z95.1 Presence of aortocoronary bypass graft
CPT/HCPCS: 28805; 20240; 20700; 71045; 73620; 73630; 76000; 82962; 87070; 87077; 87186; 87205; 96374; C1751; C1762; C1776; J2543; J3370

== ENCOUNTER → 2020-09-30 14:12 | Outpatient (CLI) | payer MEDICAID, SELFPAY ==
[2020-09-30 15:12] LABS: Vancomycin,Trough 18.8 ug/mL (5.0-10.0)
== END ==
PROVIDERS: Visit Provider Emergency Medicine
DX: Z51.81 Encounter for therapeutic drug level monitoring (principal)
CPT/HCPCS: 80202

== ENCOUNTER → 2020-10-01 17:07 | Outpatient (CLI) | payer MEDICAID, SELFPAY | PROVIDERS: Visit Provider Podiatrist | DX: Z89.432 Acquired absence of left foot (principal) | CPT/HCPCS: 87070; 87205 ==

== ENCOUNTER → 2020-10-08 01:50 | Outpatient (CLI) | payer MEDICAID, SELFPAY | LOC: LAB 01:53 → LAB.DROPOF 10-09 09:18 | PROVIDERS: PCP Emergency Medicine; Visit Provider Emergency Medicine | DX: Z51.81 Encounter for therapeutic drug level monitoring (principal) | CPT/HCPCS: 80202 ==

== ENCOUNTER → 2020-10-10 14:45 | Outpatient (CLI) | payer MEDICAID, SELFPAY ==
[2020-10-10 15:50] LABS: Chloride 104 mmol/L (98-107); Potassium 4.3 mmoL/L (3.5-5.1); Sodium 142 mmol/L (136-145)
[2020-10-10 15:53] LABS: Blood Urea Nitrogen 13 mg/dl (9-20); Estimated Glomerular Filt Rate 62 ml/min (>60); GFR (African American) 75 ML/MIN (>60)
[2020-10-10 15:54] LABS: Anion Gap 13.3 mEq/L (5-15); Calcium 9.8 mg/dl (8.4-10.2); Carbon Dioxide 29 mmol/L (22.0-30.0); Glucose 150 mg/dl (74-100)
== END ==
PROVIDERS: Visit Provider Emergency Medicine
DX: E11.9 Type 2 diabetes mellitus without complications (principal); Z79.4 Long term (current) use of insulin; Z51.81 Encounter for therapeutic drug level monitoring
CPT/HCPCS: 80048; 80202

== ENCOUNTER → 2020-10-13 01:55 | Outpatient (CLI) | payer MEDICAID, SELFPAY ==
[2020-10-13 02:50] LABS: Blood Urea Nitrogen 14 mg/dl (9-20); Calcium 9.1 mg/dl (8.4-10.2); Carbon Dioxide 27 mmol/L (22.0-30.0); Chloride 106 mmol/L (98-107); Estimated Glomerular Filt Rate 69 ml/min (>60); GFR (African American) 83 ML/MIN (>60); Glucose 165 mg/dl (74-100); Sodium 139 mmol/L (136-145)
== END ==
PROVIDERS: PCP Emergency Medicine; Visit Provider Emergency Medicine
DX: M86.672 Other chronic osteomyelitis, left ankle and foot (principal); Z51.81 Encounter for therapeutic drug level monitoring
CPT/HCPCS: 80048; 80202

== ENCOUNTER → 2020-10-20 01:54 | Outpatient (CLI) | payer MEDICAID, SELFPAY ==
[2020-10-20 03:25] LABS: Anion Gap 10.1 mEq/L (5-15); Blood Urea Nitrogen 16 mg/dl (9-20); Calcium 9.2 mg/dl (8.4-10.2); Carbon Dioxide 32 mmol/L (22.0-30.0); Chloride 102 mmol/L (98-107); Estimated Glomerular Filt Rate 69 ml/min (>60); GFR (African American) 83 ML/MIN (>60); Glucose 143 mg/dl (74-100); Potassium 4.1 mmoL/L (3.5-5.1); Sodium 140 mmol/L (136-145)
[2020-10-20 03:30] LABS: Vancomycin,Trough 16.1 ug/mL (5.0-10.0)
== END ==
PROVIDERS: Visit Provider Emergency Medicine
DX: I10 Essential (primary) hypertension (principal); Z51.81 Encounter for therapeutic drug level monitoring
CPT/HCPCS: 80048; 80202

== ENCOUNTER → 2020-10-21 17:50 | Outpatient (CLI) | payer MEDICAID, SELFPAY | PROVIDERS: Visit Provider Podiatrist | DX: Z98.890 Other specified postprocedural states (principal); M86.672 Other chronic osteomyelitis, left ankle and foot | CPT/HCPCS: 87070; 87077; 87186; 87205 ==

== ENCOUNTER → 2020-10-27 02:05 | Outpatient (CLI) | payer MEDICAID, SELFPAY ==
[2020-10-27 02:23] LABS: Basophils # 0.1 K/mm3 (0-0.2); Basophils % 1.8 % (0.1-2.0); Eosinophils # 0.3 K/mm3 (0.0-0.4); Eosinophils % 6.6 % (0.1-12.0); Hematocrit 33.1 % (42.0-52.0); Hemoglobin 10.4 g/dL (14.1-18.0); Lymphocytes # 2.3 K/mm3 (0.7-4.5); Mean Corpuscular HGB Conc 31.3 g/dL (31.8-35.4); Mean Corpuscular Hemoglobin 28.7 pg (27.0-31.2); Mean Corpuscular Volume 91.7 fl (80-94); Mean Platelet Volume 7.8 fl (7.4-10.4); Monocytes # 0.5 K/mm3 (0.1-1.0); Monocytes % 8.8 % (1.7-9.3); Neutrophils # 2.1 K/mm3 (1.8-7.8); Neutrophils % 39.9 % (37.0-80.0); Platelet Count 331 K/mm3 (142-424); Red Blood Count 3.61 M/mm3 (4.60-6.20); Red Cell Distribution Width 14.4 % (11.5-17.5); White Blood Count 5.3 K/mm3 (4.8-10.8)
[2020-10-27 02:35] LABS: Anion Gap 12.9 mEq/L (5-15); Blood Urea Nitrogen 14 mg/dl (9-20); Calcium 9.3 mg/dl (8.4-10.2); Carbon Dioxide 31 mmol/L (22.0-30.0); Chloride 101 mmol/L (98-107); Estimated Glomerular Filt Rate 62 ml/min (>60); GFR (African American) 75 ML/MIN (>60); Glucose 201 mg/dl (74-100); Potassium 3.9 mmoL/L (3.5-5.1); Sodium 141 mmol/L (136-145)
[2020-10-27 02:40] LABS: Vancomycin,Random 16.4 ug/ml
[2020-10-27 02:52] LABS: Erythrocyte Sedimentation Rate 95 mm/hr (0-20)
== END ==
PROVIDERS: Visit Provider Emergency Medicine
DX: M86.672 Other chronic osteomyelitis, left ankle and foot (principal); Z51.81 Encounter for therapeutic drug level monitoring; Z79.2 Long term (current) use of antibiotics
CPT/HCPCS: 80048; 80202; 85025; 85651; 86140

== ENCOUNTER → 2020-10-30 07:38 | Outpatient (CLI) | payer MEDICAID, SELFPAY ==
--- NOTE | 2020-10-30 07:43 | XR_ITS ---
PROCEDURE: XR FOOT WT BEARING LT 3V CLINICAL INDICATION: post foot surgery, follow-up surgery COMPARISON: CR XR FOOT WT BEARING LT 3V from 03/31/2020 CR XR FOOT WT BEARING LT 3V from 07/14/2020 CR XR FOOT LT MIN 3V from 09/24/2020 CR XR FOOT LT 2V from 09/24/2020 FINDINGS: Status post mid metatarsal amputation. Dissolving antibiotic beads are present at the amputation site. There is diffuse osteopenia. There is medial subluxation of the navicular. Distal to the navicular there is faint increased density. It is unknown whether this represents residual bone or debris. Please correlate with patient's surgical history. There is also some irregularity at the distal calcaneal area. Cannot exclude the possibility of osteomyelitis at these regions. Soft tissue swelling is present at the ankle and hindfoot IMPRESSION: Status post amputation with dissolving antibiotic beads with some ill definition of the distal aspect of the navicular and calcaneus with faint density in the amputation site which may be related to bony debris. Cannot exclude underlying osteomyelitis. Dictated by: Kelvin Peterson MD 10/30/2020 14:01 Kelvin Peterson MD in [place] 10/30/2020 14:01
== END ==
PROVIDERS: PCP Emergency Medicine; Visit Provider Podiatrist
DX: Z98.890 Other specified postprocedural states (principal); M79.672 Pain in left foot
CPT/HCPCS: 73630

== ENCOUNTER → 2020-11-03 01:41 | Outpatient (CLI) | payer MEDICAID, SELFPAY ==
[2020-11-03 02:06] LABS: Anion Gap 9.8 mEq/L (5-15); Blood Urea Nitrogen 13 mg/dl (9-20); Calcium 9.7 mg/dl (8.4-10.2); Carbon Dioxide 30 mmol/L (22.0-30.0); Chloride 104 mmol/L (98-107); Estimated Glomerular Filt Rate 69 ml/min (>60); GFR (African American) 83 ML/MIN (>60); Glucose 164 mg/dl (74-100); Potassium 3.8 mmoL/L (3.5-5.1); Sodium 140 mmol/L (136-145)
== END ==
PROVIDERS: Visit Provider Emergency Medicine
DX: L03.116 Cellulitis of left lower limb (principal); Z51.81 Encounter for therapeutic drug level monitoring
CPT/HCPCS: 80048; 80202

== ENCOUNTER → 2020-11-10 02:03 | Outpatient (CLI) | payer MEDICAID, SELFPAY ==
[2020-11-10 02:35] LABS: Anion Gap 11.8 mEq/L (5-15); Blood Urea Nitrogen 14 mg/dl (9-20); Calcium 9.7 mg/dl (8.4-10.2); Carbon Dioxide 29 mmol/L (22.0-30.0); Chloride 103 mmol/L (98-107); Estimated Glomerular Filt Rate 62 ml/min (>60); GFR (African American) 75 ML/MIN (>60); Glucose 152 mg/dl (74-100); Potassium 3.8 mmoL/L (3.5-5.1); Sodium 140 mmol/L (136-145)
[2020-11-10 02:39] LABS: Vancomycin,Trough 16.3 ug/mL (5.0-10.0)
== END ==
LOC: LAB 02:05 → LAB.DROPOF 11-11 08:58
PROVIDERS: Visit Provider Emergency Medicine
DX: M86.672 Other chronic osteomyelitis, left ankle and foot (principal); Z79.2 Long term (current) use of antibiotics; Z51.81 Encounter for therapeutic drug level monitoring
CPT/HCPCS: 80048; 80202

== ENCOUNTER → 2020-11-14 01:56 | Outpatient (CLI) | payer MEDICAID, SELFPAY ==
[2020-11-14 02:21] LABS: Anion Gap 11.9 mEq/L (5-15); Blood Urea Nitrogen 14 mg/dl (9-20); Calcium 9.6 mg/dl (8.4-10.2); Carbon Dioxide 31 mmol/L (22.0-30.0); Chloride 102 mmol/L (98-107); Estimated Glomerular Filt Rate 62 ml/min (>60); GFR (African American) 75 ML/MIN (>60); Glucose 161 mg/dl (74-100); Potassium 3.9 mmoL/L (3.5-5.1); Sodium 141 mmol/L (136-145)
[2020-11-14 02:26] LABS: Vancomycin,Trough 15.5 ug/mL (5.0-10.0)
== END ==
PROVIDERS: PCP Emergency Medicine; Visit Provider Emergency Medicine
DX: M86.672 Other chronic osteomyelitis, left ankle and foot (principal); Z79.2 Long term (current) use of antibiotics; Z51.81 Encounter for therapeutic drug level monitoring
CPT/HCPCS: 80048; 80202

== ENCOUNTER → 2020-11-25 20:29 | Outpatient (CLI) | payer MEDICAID, SELFPAY | PROVIDERS: Visit Provider Podiatrist | DX: Z51.89 Encounter for other specified aftercare (principal); M86.672 Other chronic osteomyelitis, left ankle and foot | CPT/HCPCS: 87070; 87077; 87186; 87205 ==

== ENCOUNTER 2020-12-17 10:00 | Outpatient (RCR) | payer MEDICAID, SELFPAY ==
--- NOTE | 2020-04-02 16:24 | HMH.PTOPWND ---
Rehab Outpt Wound Evaluation Rehab OP Wound Evaluation Start: 04/02/20 16:04 Freq: Status: Active Protocol: Document 04/02/20 16:05 [email or web address] (Rec: 04/02/20 16:23 PWJESSICA [id number]) Electronically Signed By Tavo Richmond, WON 04/02/20 16:05 Subjective/History History History This is the initial wound clinic evaluation for Easton Yobani. Pt is a 59 y/o male referred to Wound Clinic for non-healing surgical wound on Lfoot. Pt had originall dgit amputation, which became infected and had osteomyelitis which required transmet amputation. 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 Pt is a diabetic and has been for 35+ years. Pt has R AKA due to diabetes and circulation issues. Subjective Subjective Pt reports to PT They ain't cutting on me no more, even if it lays me to rest, they ain' t cutting on me no more Wound Eval Wound Left Distal Foot Wound Type Amputation Is This a Chronic Wound Yes Wound Length (cm) 7 Wound Width (cm) 14 Wound Bed Appearance Yellow,Peeling Skin,Blisters, Edematous,Sutures,Necrotic Percentage of Slough (%) 75 Percentage of Eschar (Black) (%) 25 Percentage of Eschar (Yellow) (%) 75 Wound Margins Description Macerated Surrounding Tissue Appearance Edematous,Indurated,Macerated Edema Type Pitting Edema Appearance Weeping,Shiny,Tight Surrounding Tissue Temperature Cold Drainage Description Serosanguineous Drainage Amount Moderate Drainage Odor No Odor Dressing Status Soiled Wound Topical Solution/Irrigant Dakins Irrigant Primary Dressing Silver Dressing Comment tegederm am w/ dakins Wound Secondary Dressing Type Biosynthetic Dressing Comment opticell AG Wound Debridement Method Sharps,Forceps Wound Debridement Amount of Tissue
== END 2020-12-17 10:05 | disposition home or self-care (01) ==
LOC: PT 10:00
PROVIDERS: PCP Emergency Medicine; Visit Provider Podiatrist
DX: I96 Gangrene, not elsewhere classified (principal); T81.31XD Disruption of external operation (surgical) wound, not elsewhere classified, subsequent encounter; A49.02 Methicillin resistant Staphylococcus aureus infection, unspecified site; A49.8 Other bacterial infections of unspecified site; A49.1 Streptococcal infection, unspecified site; Z16.21 Resistance to vancomycin; Z16.24 Resistance to multiple antibiotics
CPT/HCPCS: 97140; 97161; 97164; 97597; 97598; 97605; 97760

== ENCOUNTER → 2020-12-18 09:59 | Outpatient (CLI) | payer MEDICAID, SELFPAY ==
--- NOTE | 2020-12-18 10:12 | XR_ITS ---
PROCEDURE: XR ANKLE WT BEARING LT MIN 3V CLINICAL INDICATION: foot pain Recent injury with pain, recent surgery COMPARISON: CR XR FOOT WT BEARING LT 3V from 10/30/2020 CR XR FOOT WT BEARING LT 3V from 12/18/2020 FINDINGS: There has been prior amputation in the midfoot with residual hyperdensities at the surgical site consistent with antibiotic beads. There is lateral displacement of the navicular. Generalized vascular calcification is noted. IMPRESSION: No change status post amputation at the navicular level with lateral angulation and displacement of the navicular with residual antibiotic beads. No bony lytic process apparent. Dictated by: Kelvin Peterson MD 12/18/2020 13:04 Kelvin Peterson MD in [place] 12/18/2020 13:04
== END ==
PROVIDERS: PCP Emergency Medicine; Visit Provider Podiatrist
DX: Z89.432 Acquired absence of left foot (principal); Z98.890 Other specified postprocedural states
CPT/HCPCS: 73610; 73630

== ENCOUNTER → 2021-01-15 09:37 | Outpatient (CLI) | payer MEDICAID, SELFPAY ==
[2021-01-15 10:10] LABS: Basophils % 0.6 % (0.1-2.0); Eosinophils # 0.2 K/mm3 (0.0-0.4); Eosinophils % 2.6 % (0.1-12.0); Hematocrit 33.9 % (42.0-52.0); Hemoglobin 10.4 g/dL (14.1-18.0); Lymphocytes # 2.1 K/mm3 (0.7-4.5); Lymphocytes % 36.6 % (10-50); Mean Corpuscular HGB Conc 30.6 g/dL (31.8-35.4); Mean Corpuscular Hemoglobin 27.7 pg (27.0-31.2); Mean Corpuscular Volume 90.6 fl (80-94); Mean Platelet Volume 8.1 fl (7.4-10.4); Monocytes # 0.4 K/mm3 (0.1-1.0); Monocytes % 6.8 % (1.7-9.3); Neutrophils # 3.1 K/mm3 (1.8-7.8); Neutrophils % 53.4 % (37.0-80.0); Platelet Count 329 K/mm3 (142-424); Red Blood Count 3.75 M/mm3 (4.60-6.20); Red Cell Distribution Width 15.1 % (11.5-17.5); White Blood Count 5.8 K/mm3 (4.8-10.8)
--- NOTE | 2021-01-15 10:20 | CA_ITS ---
APPROVED REPORT Left Lower Extremity Venous Study for DVT. Django Developer: Aaliyah Arreola RVT Indications Lower Extremity Pain: Left Lower Extremity Edema: Left leg pain lateral calf, pt had partial lt foot amputation in nov. Risk Factors Obesity Post OP Vein Imaging CFV (L): compressive, spontaneous, phasic, augmentation FEM (L): compressive, spontaneous, phasic, augmentation POP (L): compressive, spontaneous, phasic, augmentation PTV (L): Compressible GSV (L): Compressible Peroneals (L):Compressible GAS (L): Compressible Findings Study suggests no evidence of DVT of the left lower extremity. Study suggests no evidence of SVT of the left lower extremity. Conclusion Study suggests no evidence of DVT of the left lower extremity. Study suggests no evidence of SVT of the left lower extremity. Electronically signed by : Kelvin Peterson MD 01/15/2021 18:59:15
[2021-01-15 11:05] LABS: D-Dimer 0.92 ug/mL (0.0-0.5)
[2021-01-15 11:11] LABS: Hemoglobin A1C 9.7 % (4.0-6.0)
[2021-01-15 11:25] LABS: Erythrocyte Sedimentation Rate 117 mm/hr (0-20)
[2021-01-15 12:26] LABS: Alanine Aminotransferase 15 U/L (12-78); Albumin Level 3.8 g/dl (3.5-5.0); Alkaline Phosphatase 103 U/L (38-126); Anion Gap 13.4 mEq/L (5-15); Aspartate Amino Transferase 31 U/L (17-59); Bilirubin,Total 0.2 mg/dl (0.2-1.3); Blood Urea Nitrogen 16 mg/dl (9-20); Calcium 9.7 mg/dl (8.4-10.2); Carbon Dioxide 27 mmol/L (22.0-30.0); Chloride 103 mmol/L (98-107); Estimated Glomerular Filt Rate 69 ml/min (>60); GFR (African American) 83 ML/MIN (>60); Glucose 310 mg/dl (74-100); Potassium 4.4 mmoL/L (3.5-5.1); Sodium 139 mmol/L (136-145); Total Protein,Serum 7.8 g/dl (6.3-8.2)
[2021-01-15 12:31] LABS: C-Reactive Protein 7.3 mg/L (0-4)
== END ==
PROVIDERS: PCP Emergency Medicine; Visit Provider Podiatrist
DX: M79.662 Pain in left lower leg (principal); Z98.890 Other specified postprocedural states; E11.40 Type 2 diabetes mellitus with diabetic neuropathy, unspecified
CPT/HCPCS: 36415; 80053; 83036; 85025; 85378; 85651; 86140; 93971

== ENCOUNTER → 2021-01-21 08:09 | Outpatient (CLI) | payer MEDICAID, SELFPAY ==
--- NOTE | 2021-01-21 08:13 | XR_ITS ---
PROCEDURE: XR FOOT WT BEARING LT 3V CLINICAL INDICATION: foot pain Follow-up surgery COMPARISON: CR XR FOOT LT MIN 3V from 09/24/2020 CR XR FOOT LT 2V from 09/24/2020 CR XR FOOT WT BEARING LT 3V from 10/30/2020 CR XR FOOT WT BEARING LT 3V from 12/18/2020 FINDINGS: There has been prior amputation at the distal aspect of the calcaneus and navicular. There is uncovering of the head of the talus within navicular deviated medially. Antibiotic beads are present. There is diffuse osteopenia. IMPRESSION: Status post midfoot amputation as described with diffuse osteopenia not significantly changed Dictated by: Kelvin Peterson MD 01/21/2021 17:27 Kelvin Peterson MD in [place] 01/21/2021 17:27
--- NOTE | 2021-01-21 08:13 | XR_ITS ---
PROCEDURE: XR ANKLE WT BEARING LT MIN 3V CLINICAL INDICATION: ankle pain COMPARISON: CR XR ANKLE WT BEARING LT MIN 3V from 12/18/2020 FINDINGS: Status post amputation at the distal calcaneus and navicular with diffuse osteopenia. Residual is present from antibiotic beads. No acute fracture or dislocation evident. There is diffuse vascular calcification. IMPRESSION: No change status post midfoot amputation Dictated by: Kelvin Peterson MD 01/21/2021 17:28 Kelvin Peterson MD in [place] 01/21/2021 17:28
== END ==
PROVIDERS: PCP Emergency Medicine; Visit Provider Podiatrist
DX: Z98.890 Other specified postprocedural states (principal)
CPT/HCPCS: 73610; 73630

== ENCOUNTER 2021-02-09 12:59 | Inpatient (IN) | payer MEDICAID, SELFPAY ==
[2021-02-09] VITALS (24 sets, daily range): BP systolic 100–165; BP diastolic 45–90; PULSE 76–90; RESP 16–18; TEMP 36.3–37.4; O2SAT 94–100; BMI 36.3; BMI 36.1; BMI 31.0
--- NOTE | 2021-02-09 13:04 | HMH.EDGENADL ---
ED Disposition Clinical Impression: Osteomyelitis Qualifiers: Osteomyelitis type: other acute Osteomyelitis location: foot Laterality: left Qualified Code(s): M86.172 - Other acute osteomyelitis, left ankle and foot Disposition: Admitted As Inpatient Condition on Discharge: Good Referrals: Teofilo Evans MD [Primary Care Provider] - - Critical Care Critical Care Time: No Attestation: On , the high probability of a clinically significant, sudden or life threatening deterioration of the following system(s) required my full and direct attention, intervention and personal management. The time I documented below is in addition to time spent performing reported procedures but includes the following listed in this critical care notation. Medical Decision Making - Medical Records Medical records reviewed: Yes: I reviewed the patient's medical records. - [place] Inquiry Pt receiving controlled substance: No Vital Signs: 02/09/21 13:11 02/09/21 13:30 02/09/21 14:28 Temperature 99.4 F Temperature Source Oral Pulse Rate 81 86 Pulse Rate [Radial] 85 Respiratory Rate 18 Blood Pressure 107/60 L 121/68 Blood Pressure [Right Arm] 101/45 L Blood Pressure Mean 73 83 Blood Pressure Mean [Right Arm] 63 Blood Pressure Position [Right Arm] Sitting 02 Sat by Pulse Oximetry 98 100 98 Oxygen Delivery Method Room Air 02/09/21 14:30 02/09/21 15:00 Temperature Temperature Source Pulse Rate 79 Pulse Rate [Radial] Respiratory Rate Blood Pressure 121/70 128/64 Blood Pressure [Right Arm] Blood Pressure Mean 82 80 Blood Pressure Mean [Right Arm] Blood Pressure Position [Right Arm] 02 Sat by Pulse Oximetry 99 Oxygen Delivery Method - Lab Data Lab Results 02/09/21 13:25: WBC 8.0, RBC 3.29 L, Hgb 9.4 L, Hct 29.3 L, MCV 89.3, MCH 28.6, MCHC 32.0, RDW 16.2, Plt Count 284, MPV 9.7, Neut % (Auto) 68.2, Lymph % (Auto) 23.2, [place] % (Auto) 5.6, Eos % (Auto) 2.1, Baso % (Auto) 0.9, Neut # (Auto) 5.4, Lymph # (Auto) 1.9, [place] # (Auto) 0.5, Eos # (Auto) 0.2, Baso # (Auto) 0.1, ESR > 140 H 02/09/21 13:25: Sodium 136, Potassium 4.4, Chloride 99, Carbon Dioxide 29, Anion Gap 12.4, BUN 33 H, Creatinine 1.90 H, Estimated Creat Clear 66, Estimated GFR 36 L, Est GFR ( Amer) 44 L, Glucose 132 H, Calcium 9.6, Total Bilirubin 0.7, AST 86 H, ALT 34, Alkaline Phosphatase 117, C-Reactive Protein 199.5 H, Total Protein 8.4 H, Albumin 4.0, Globulin 4.4 H, Albumin/Globulin Ratio 0.9 L, Procalcitonin 0.239 02/09/21 13:25: Lactate 1.4 Result diagrams: 02/09/21 13:25 02/09/21 13:25 Orders (Tests/Meds): ED MEDICATIONS Generic Name Dose Route Start Last Admin Trade Name Freq PRN Reason Stop Dose Admin Vancomycin HCl 2,000 mg/ 250 mls @ 125 mls/hr 02/09/21 15:00 Sodium Chloride IV 02/23/21 14:59 Q24H SHARATH Cefepime HCl 2 gm/ Sodium 100 mls @ 200 mls/hr 02/09/21 21:00 Chloride IV 02/23/21 20:59 Q12H SHARATH Discontinued Medications Generic Name Dose Route Start Last Admin Trade Name Freq PRN Reason Stop Dose Admin Piperacillin Sod/Tazobactam 100 mls @ 200 mls/hr 02/09/21 14:45 02/09/21 15:14 Sod 4.5 gm/ Sodium Chloride IV 02/23/21 14:44 200 mls/hr Q8H SHARATH Administration Protocol Iopamidol 75 ml 02/09/21 14:13 02/09/21 14:14 Iopamidol-370 (76%);100ml Bottle IV 02/09/21 14:14 75 ml ONCE ONE Administration Miscellaneous 1 each 02/09/21 14:45 02/09/21 15:13 Vancomycin Consult Request * 03/11/21 14:44 1 each CONSULT PHARMACY SHARATH Administration Sodium Chloride 10 ml 02/09/21 14:13 02/09/21 14:14 Sodium Chloride 0.9% 10ml Syr (Rad Only) IV 02/09/21 14:14 10 ml ONCE ONE Administration ORDERS Category Date Time Status Consult to Podiatry [CONS] Routine Cons 02/09/21 15:12 Active Chest XR -- portable [XR chest portable] Stat Exams 02/09/21 15:19 Ordered Covid-19 Nasal PCR ([facility]) Routine Lab 02/09/21 13:25 Received Blood Cultu
--- NOTE | 2021-02-09 13:20 | XR_ITS ---
PROCEDURE: XR FOOT LT MIN 3V CLINICAL INDICATION: INFECTION COMPARISON: CR XR FOOT LT MIN 3V from 09/24/2020 CR XR FOOT WT BEARING LT 3V from 10/30/2020 CR XR FOOT WT BEARING LT 3V from 12/18/2020 CR XR FOOT WT BEARING LT 3V from 01/21/2021 FINDINGS: There is midfoot amputation. Diffuse osteopenia of the tarsal bones noted. Multiple antibiotic beads are again noted, unchanged. There is evidence of sclerosis and irregularity of the navicular bone, demonstrates no significant interval change compared to prior study. Few foci of air noted within the soft tissues on the dorsal aspect of the talus and navicular bone. This may be secondary to known infectious process/cellulitis. Vascular calcification is noted. IMPRESSION: Cycle of prior midfoot amputation. Few foci of air noted in the soft tissues of the dorsum adjacent to the amputated site. This may be secondary to recent surgery versus cellulitis/infectious process. Dictated by: Elaina Wei 02/09/2021 14:14 Elaina Wei in [place] 02/09/2021 14:14
--- NOTE | 2021-02-09 13:27 | CT_ITS ---
PROCEDURE: CT LOWER LEG LT W CON CLINICAL HISTORY: worsening diabetic foot wound (r/o osteo) COMPARISON: MR MRI LWR EXT NON-JT W/W/O LT from 08/13/2020 CR XR FOOT WT BEARING LT 3V from 12/18/2020 TECHNIQUE: Axial images obtained with sagittal and coronal reformats. All CT scans at the facility use one or more dose reduction, viz: automated exposure control, ma/kV adjustment per patient size (including targeted exams where dose is matched to indication, i.e. head), or iterative reconstruction technique. FINDINGS: There is extensive subcutaneous soft tissue edema of the left lower extremity 3 its entire visualized extent. Midfoot amputation is again noted. There is evidence of multiple hyperdensities with fragmentation noted in the foot at the site of amputation, likely postsurgical and heterotopic ossification. Significant amount of soft tissue air is noted. This extends up to the level of the navicular bone. Multiple lucent areas are noted within the navicular bone, calcaneum and talus with focal areas of sclerosis. There are multiple focal areas of heterogeneous density with lucencies and sclerosis noted in the distal tibia and fibula. Minor cortical irregularity of the anterior navicular bone is noted with adjacent associated significant soft tissue air, raises the concern for osteomyelitis.. There is a focal fluid density collection noted in the at the site of amputation with containing air and fluid. IMPRESSION: Focal areas of soft tissue air and fluid noted adjacent to the navicular bone, raises the concern for fluid collection. Multiple focal lucent and sclerotic areas noted within the navicular bone with cortical irregularity, may be secondary to Charcot arthropathy. Osteomyelitis should be considered. MRI of the foot without and with contrast should be considered for further evaluation. Cellulitis of the left lower extremity. Dictated by: Elaina Wei 02/09/2021 14:48 Elaina Wei in [place] 02/09/2021 14:48
[2021-02-09 13:52] LABS: Basophils # 0.1 K/mm3 (0-0.2); Basophils % 0.9 % (0.1-2.0); Eosinophils # 0.2 K/mm3 (0.0-0.4); Eosinophils % 2.1 % (0.1-12.0); Hematocrit 29.3 % (42.0-52.0); Hemoglobin 9.4 g/dL (14.1-18.0); Lymphocytes # 1.9 K/mm3 (0.7-4.5); Lymphocytes % 23.2 % (10-50); Mean Corpuscular Hemoglobin 28.6 pg (27.0-31.2); Mean Corpuscular Volume 89.3 fl (80-94); Mean Platelet Volume 9.7 fl (7.4-10.4); Monocytes # 0.5 K/mm3 (0.1-1.0); Monocytes % 5.6 % (1.7-9.3); Neutrophils # 5.4 K/mm3 (1.8-7.8); Neutrophils % 68.2 % (37.0-80.0); Platelet Count 284 K/mm3 (142-424); Red Blood Count 3.29 M/mm3 (4.60-6.20); Red Cell Distribution Width 16.2 % (11.5-17.5)
[2021-02-09 13:54] LABS: Chloride 99 mmol/L (98-107); Potassium 4.4 mmoL/L (3.5-5.1); Sodium 136 mmol/L (136-145)
[2021-02-09 13:57] LABS: Alanine Aminotransferase 34 U/L (12-78); Albumin/Globulin Ratio 0.9 (1.1-1.8); Alkaline Phosphatase 117 U/L (38-126); Anion Gap 12.4 mEq/L (5-15); Aspartate Amino Transferase 86 U/L (17-59); Bilirubin,Total 0.7 mg/dl (0.2-1.3); Blood Urea Nitrogen 33 mg/dl (9-20); Carbon Dioxide 29 mmol/L (22.0-30.0); Creatinine Clearance Estimated 66 mL/min (50-200); Estimated Glomerular Filt Rate 36 ml/min (>60); GFR (African American) 44 ML/MIN (>60); Globulin 4.4 g/dL (1.3-3.2); Total Protein,Serum 8.4 g/dl (6.3-8.2)
[2021-02-09 13:58] LABS: Calcium 9.6 mg/dl (8.4-10.2); Glucose 132 mg/dl (74-100); Lactic Acid 1.4 mmol/L (0.7-2.1)
[2021-02-09 14:03] LABS: C-Reactive Protein 199.5 mg/L (0-4)
[2021-02-09 14:24] LABS: Erythrocyte Sedimentation Rate > 140 mm/hr (0-20)
[2021-02-09 14:27] LABS: Procalcitonin 0.239 ng/mL (0.0-2.0)
--- NOTE | 2021-02-09 15:05 | HMH.PHACONS ---
- Pharmacy Consult Date: 02/09/21 Time: 15:05 Referring provider: DR. CHAPIN Reason for Consult:: VANCOMYCIN DOSING Allergies and ADEs:: Allergies Allergy/AdvReac Type Severity Reaction Status Date / Time No Known Allergies Allergy Verified 01/30/21 09:29 Home Medications:: Home Medications Medication Instructions Recorded Confirmed Type Acetaminophen [Tylenol 500mg 500 mg PO Q4HP PRN 12/05/19 01/30/21 History tablet] Aspirin [Aspirin 81mg chewable 81 mg PO DAILY 12/05/19 01/30/21 History tab] Atorvastatin Calcium [Lipitor 80mg 80 mg PO HS 12/05/19 01/30/21 History Tab] Pantoprazole Sodium [Protonix 40mg 40 mg PO DAILY 12/05/19 01/30/21 History tablet] Sennosides/Docusate Sodium 1 tab PO DAILY 12/05/19 01/30/21 History [Senokot-S Tablet] Venlafaxine HCl [Venlafaxine HCl 75 mg PO DAILY 12/05/19 01/30/21 History ER] hydroCHLOROthiazide 12.5 mg PO DAILY 12/05/19 01/30/21 History [Hydrochlorothiazide] polyethylene glycoL 3350 17 gm PO DAILY 12/05/19 01/30/21 History [Polyethylene Glycol 3350] Rivaroxaban [Xarelto 2.5mg Tab*] 2.5 mg PO BID 12/31/19 01/30/21 History Multivitamin 1 each PO DAILY 02/26/20 01/30/21 History Promethazine HCl [Phenergan 25mg 25 mg PO Q4-6H PRN 02/26/20 01/30/21 History tablet] cyclobenzaprine 5 mg tablet 5 mg PO QHS 07/14/20 01/30/21 History insulin regular human 100 unit/mL 1 sliding scale dose SQ 07/14/20 01/30/21 History injection solution USEASDIRECTD hydrocodone 5 mg-acetaminophen 325 1 tab PO BID PRN #60 tab 09/16/20 01/30/21 Rx mg tablet carvediloL [Carvedilol 12.5mg Tab] 12.5 mg PO BID 09/24/20 01/30/21 History lisinopriL [Prinivil 20mg Tablet] 20 mg PO BID 09/24/20 01/30/21 History quetiapine 100 mg tablet 100 mg PO HS 10/13/20 01/30/21 History gentamicin 0.1 % topical cream 1 applic TOPICAL DAILY 28 Days #30 12/02/20 01/30/21 Rx g oxycodone 10 mg tablet 10 mg PO Q4H PRN #120 tab 12/12/20 01/30/21 Rx gabapentin 300 mg capsule 300 mg PO TID #90 cap 01/07/21 01/30/21 Rx buspirone 10 mg tablet 10 mg PO BID tab 01/29/21 01/30/21 History fluticasone propionate 50 1 spray INTRANASAL DAILY 01/29/21 01/30/21 History mcg/actuation nasal spray,suspension insulin glargine 100 unit/mL (3 60 unit SQ QHS ml 01/29/21 01/30/21 History mL) subcutaneous pen ascorbic acid (vitamin C) 1,000 mg 1 g PO DAILY #120 tab 02/03/21 Rx tablet lactulose 10 gram/15 mL oral 30 ml PO DAILYP PRN ml 02/03/21 History solution Height: 1.75 m Weight: 111.13 kg Laboratory Results:: Laboratory Results - last 24 hr 02/09/21 13:25: WBC 8.0, RBC 3.29 L, Hgb 9.4 L, Hct 29.3 L, MCV 89.3, MCH 28.6, MCHC 32.0, RDW 16.2, Plt Count 284, MPV 9.7, Neut % (Auto) 68.2, Lymph % (Auto) 23.2, [place] % (Auto) 5.6, Eos % (Auto) 2.1, Baso % (Auto) 0.9, Neut # (Auto) 5.4, Lymph # (Auto) 1.9, [place] # (Auto) 0.5, Eos # (Auto) 0.2, Baso # (Auto) 0.1, ESR > 140 H 02/09/21 13:25: Sodium 136, Potassium 4.4, Chloride 99, Carbon Dioxide 29, Anion Gap 12.4, BUN 33 H, Creatinine 1.90 H, Estimated Creat Clear 66, Estimated GFR 36 L, Est GFR ( Amer) 44 L, Glucose 132 H, Calcium 9.6, Total Bilirubin 0.7, AST 86 H, ALT 34, Alkaline Phosphatase 117, C-Reactive Protein 199.5 H, Total Protein 8.4 H, Albumin 4.0, Globulin 4.4 H, Albumin/Globulin Ratio 0.9 L, Procalcitonin 0.239 02/09/21 13:25: Lactate 1.4 Medical History: Reports:: Atherosclerotic Heart Disease, Congestive Heart Failure, Coronary Artery Disease, Diabetes Mellitus Type 2, Hyperlipidemia, Hypertension, Myocardial Infarction, Peripheral Artery Disease, Peripheral Vascular Disease Denies:: Cancer, Diabetes Mellitus Type 1, Internal Pacemaker, MRSA, Seizures Assessment and Plan - Assessment and plan all Dx Assessment and Plan for all problems:: Objective: Patient: Floor: Age: 60 yo Serum creatinine: 1.9 mg/dL Height: 69.0 Inches Weight (kg): 111.13 Assessment: =====
--- NOTE | 2021-02-09 15:19 | XR_ITS ---
PROCEDURE: XR CHEST PORTABLE CLINICAL HISTORY: ADMISSION COMPARISON: CR XR CHEST PORTABLE from 03/31/2020 CR XR CHEST PORTABLE PICC PLAC from 09/24/2020 CR XR CHEST PORTABLE PICC PLAC from 09/24/2020 FINDINGS: Median sternotomy and mediastinal clips are noted. Minor bibasal atelectasis. No focal consolidation, pleural effusions or pneumothorax. Cardiac size and central pulmonary vasculature within normal limits. Visualized osseous structures are unremarkable. IMPRESSION: Status post CABG. No focal consolidation or pleural effusions. Dictated by: Elaina Wei 02/09/2021 16:23 Elaina Wei in [place] 02/09/2021 16:23
--- NOTE | 2021-02-09 15:23 | ECG_ITS ---
APPROVED REPORT Exam: Resting ECG HR:80 bpm ECG Measurements Heart Rate [address] 164 P 59 QRSd 108 QRS -19 QT 396 T 175 QTc 456 Conclusion Normal sinus rhythm LEft atrial abnormality Left ventricular hypertrophy with repolarization abnormality Abnormal ECG Electronically signed by : Sanjeev Avila, 02/11/2021 13:25:19
--- NOTE | 2021-02-09 15:57 | PC.NURSE ---
HOUSE CALLED FOR ADMISSION
--- NOTE | 2021-02-09 16:30 | HMH.ORTHOCON ---
*Admission Date: 02/09/21 <Dulce Saldivar - 02/09/21 16:54> *Reason for consult:: Gas gangrene to Left foot <Dulce Saldivar 02/09/21 16:54> *History of present illness: Mr. Hilton is a patient of ours and was attending one of his wound care visits. Sandra from [facility] wound care staff noticed Mr. Hilton's foot with drainage,and blisters noted to amp site erythema and edema to the foot and extending up the lower extremity. Mr. Hilton was then transferred from wound care to the emergency room to be evaluated. The emergency room consulted us to come see Mr. Hilton since he is a patient of ours. X-rays was obtained and there was positive gas gangrene noted to the x-ray to the left foot. We have spoke with Mr. Hilton and patient has agreed to allow Dr. Panda to do a incision and drainage tonight to remove the pockets of gas gangrene, infection as well as bone cultures. Verbal and written consent was obtained in the emergency room for the I&D procedure for tonight. The left foot was marked with a purple marking pen by Dr. Panda. <Dulce Sadlivar 02/09/21 16:56> [facility] History I have reviewed the patient's past medical history: Yes <Dulce Saldivar 02/09/21 16:54> Medical History: Reports:: Atherosclerotic Heart Disease, Congestive Heart Failure, Coronary Artery Disease, Diabetes Mellitus Type 2, Hyperlipidemia, Hypertension, Myocardial Infarction, Peripheral Artery Disease, Peripheral Vascular Disease Denies:: Cancer, Diabetes Mellitus Type 1, Internal Pacemaker, MRSA, Seizures <Dulce Saldivar 02/09/21 16:54> *Have you ever received a pneumonia vaccine?: Yes <Reyna Saldivarniemma Doyle 02/09/21 16:54> *Have you received a flu vaccine this season?: Yes <JannaDulce L 02/09/21 16:54> Other Medical History: Reports: Anemia. Denies: Blood Transfusion Reaction <Dulce Saldivar Yanira 02/09/21 16:54> Laterality Cases: Bilateral: Other <JannaDulce 02/09/21 16:54> Other Surgeries: Yes: Angiogram, CABG, Cardiac Catheterization, Coronary Stent, Open Heart Surgery. No: Pacemaker <Dulce Saldivar 02/09/21 16:54> Amputation: Yes (RT AKA 10/12/19) <Dulce Saldivar 02/09/21 16:54> Fractures: No <Dulce Saldivar 02/09/21 16:54> - *Social History Smoking Status: Former smoker <Dulce Saldivar 02/09/21 16:54> Tobacco Type: cigarettes <Dulce Saldivar 02/09/21 16:54> # Packs/Day (cigarettes): 0 <Dulce Saldivar 02/09/21 16:54> Alcohol Intake: never <Dulce Saldivar 02/09/21 16:54> Substance Use Type: denies use <Dulce Saldivar 02/09/21 16:54> *Occupational Status:: disabled <Dulce Saldivar 02/09/21 16:54> Housing: detention <Dulce Saldivar 02/09/21 16:54> Household Members: none <Dulce Saldivar 02/09/21 16:54> *Travel in the last 8 weeks: None <Dulce Saldivar 02/09/21 17:08> Family Hx:: No significant family history <Dulce Saldivar 02/09/21 16:54> Review of Systems - Constitutional Denies anorexia <Dulce Saldivar 02/09/21 16:54> - Eyes Denies change in vision <Dulce Saldivar 02/09/21 16:54> - ENT Reports dry mouth (Patient's mouth is dry due to being n.p.o. status for upcoming I&D.) <JannaDulce Doyle Juan Antonio 02/09/21 16:54> - *Cardiovascular Denies chest pain, Denies shortness of breath <JannaDulce Doyle Juan Antonio 02/09/21 16:54> - *Respiratory Denies cough, Denies shortness of breath <Dulce Saldivar 02/09/21 16:54> - *Gastrointestinal Denies abdominal pain <Dulce Saldivar 02/09/21 16:54> - *Musculoskeletal Reports other (Left foot TMA site has edema and erythema to the foot and extending up leg.) <Dulce Saldivar 02/09/21 16:54> - Integumentary/Breasts Reports wounds (Left latral TMA site ulcer ), Denies change in hair <Dulce Saldivar 02/09/21 16:54> - *Neurologic Reports frequent falls, Denies abnormal speech, Denies confusion <Dulce Saldivar 02/09/21 16:54> - Psychiatric Denies anxiety, Denies confusion
--- NOTE | 2021-02-09 17:09 | PC.NURSE ---
PT TRANSFERRED TO SURGERY PER EZEQUIEL
--- NOTE | 2021-02-09 18:27 | XR_ITS ---
PROCEDURE: XR ANKLE LT 2V CLINICAL INDICATION: s/p i d left foot COMPARISON: CR XR ANKLE WT BEARING LT MIN 3V from 12/18/2020 CR XR ANKLE WT BEARING LT MIN 3V from 01/21/2021 CR XR FOOT LT MIN 3V from 02/09/2021 FINDINGS: Single portable view of the left ankle demonstrates midfoot amputation. Heterogeneous density of the visualized calcaneum, talus and the navicular bone, better characterized on the CT of the lower extremity performed on February 10, 2020. Few foci of air noted in the soft tissues at the site of amputation, improved compared to the prior study. This may be secondary to recent drainage procedure. Generalized osteopenia is noted. IMPRESSION: Midfoot amputation with the post surgical changes on the current study. Dictated by: Elaina Wei 02/10/2021 07:45 Elaina Wei in [place] 02/10/2021 07:45
--- NOTE | 2021-02-09 18:43 | HMH.OPNOTE ---
Date of procedure: 02/09/21 Pre-op Diagnosis:: 1. Left foot gas gangrene 2. Left diabetic foot infection 3. Left foot ulcer 4. Left foot osteomyelitis Post-op Diagnosis:: Same Procedure performed:: 1. Left foot incision and drainage 2. Left wound debridement 3. Left foot/ankle bone biospies Surgeon:: Etta Panda DPM [employer] TENDER:: Other (Jackson Jones) Anesthesia: MAC, local (20cc 0.5% marcaine plain) Estimated blood loss (mL): 20 Clinical Note:: Patient is a 60-year-old diabetic male with a history of PAD, diabetes, VRE MRSA, CRE. Patient was at the wound care clinic today. Patient's wound was significantly worse than it was at the last examination so he was sent to the emergency department for further evaluation. Imaging left foot x-ray and CT showed soft tissue gas. Patient was taken to the OR for planned incision and drainage. We discussed conservative versus surgical treatment options. Conservative treatment options include local wound care, oral and IV antibiotics, change in shoe wear, taping/padding, and off-loading. We discussed for gas infection, conservative care is not appropriate, it needs surgical intervention for left foot I&D. Patient understands that they could have wound healing complications including delayed healing and infection. We discussed that if the wound does not heal, it is possible that they may need a more proximal amputation and could result in further loss of partial foot or loss of leg. We discussed the risks and benefits in great detail. Other surgical risks include: prolonged pain and swelling, further infection requiring oral or IV antibiotics, delay in healing of soft tissue or bone, nerve or blood vessel damage, CRPS/RSD, DVT, anesthesia complications, and even . All questions answered. Patient verbalized understanding. Consent obtained. Medical clearance per ER and Dr. Evans. Patient has been seeing Dr. Brown, Infectious Disease. Patient has a history of surgery: 09/24/20: s/p left partial foot amputation (Lisfranc amp, midtarsal disarticulation), I&D, bone biospy, navicular bone cyst curettage, application of graft and antibiotic beads, application of MICHELLE drain. 02/27/20, S/p: left foot irrigation and debridement, transmetatarsal amputation, advancement skin flap, application of MICHELLE drain. History of multiple infections. 03/25/20: Pseudomonas aeruginosa, Carbapenem Resistant Enterobacteriaceae, WCx, 06/02/20: Proteus mirabilis. We discussed higher risk for limb loss due to PAD, right AKA, DM, neuropathy, history of multidrug resistant organism infection (MRSA, VRE, CRE). Patient has completed: oral Flagyl 500mg, IV daptomycin on 05/08/20, Zerbaxa on 05/22/20. Intra-op specimens, 09/24/20: History of wound and bone infection: MRSA, Proteus mirabilis, Staphylococcus pettenkoferi. PICC, IV Vanco 1750mg completed, PICC removed 11/20/20, Levofloxacin 750mg q24h completed 11/19/20. WCx, 11/25/20: Morganella morganii Operative findings:: Left foot had blistering and skin sloughing. There was ascending cellulitis noted. The foot had edema and erythema. Nonviable soft tissue over the dorsal lateral foot. Multiple incisions made with serosanguineous drainage noted. Approximately 10 cc of fluid drained. The bone was soft and crumbly. Some malodor noted. Suspect patient has recurrent osteomyelitis. Bone cultures were taken of the medial foot, lateral talus and ankle. Post debridement, full thickness ulcer noted. It was loosely repproximately with Prolene and the remaining wound size: 6x2m2an. It did probe to the bone. Post debridement sharply excisionally, 100% granular tissue with bleeding wound edges noted. Operative note:: On this date and time the patient was deemed an appropriate surgical candidate. With informed consent time patient was transferred from the ER holding area to the operating theater placed on table in a normal supine position. Left lower extremity prepped and draped in normal sterile fashion. No tourniquet utilized
[2021-02-09 18:48] LABS: POC Glucose,Bedside 117 (70-110)
--- NOTE | 2021-02-09 18:49 | HMH.ANESCL ---
[facility] Anesthesia Checklist - Structural Data Admitted From: Emergency Dept Planned Operative Procedure/s: I & D with bone biopsies left foot Consent for Planned Operative Procedure(s) Verified: Yes Verified Documents: Surgical Consent, History and Physical - NPO Status Verified Time NPO: 08:30 - Additional verifications Anesthesia Reactions: No Hx Blood Transfusions: Yes Blood Transfusion Reaction: No - Airway Assessment C-Spine Mobility Assessed: Yes TMJ Mobility Assessed: Yes Dentition: Good Dentition - Neurological Assessment Level of Consciousness: Awake, Alert - Anesthesia Plan Anesthesia Risk discussed: Yes Anesthesia Plan: Verified ASA Class: III Anesthesia Type: MAC [facility] History Medical History: Reports:: Atherosclerotic Heart Disease, Congestive Heart Failure, Coronary Artery Disease, Diabetes Mellitus Type 2, Hyperlipidemia, Hypertension, Myocardial Infarction, Peripheral Artery Disease, Peripheral Vascular Disease Denies:: Cancer, Diabetes Mellitus Type 1, Internal Pacemaker, MRSA, Seizures *Have you ever received a pneumonia vaccine?: Yes *Have you received a flu vaccine this season?: Yes Other Medical History: Reports: Anemia. Denies: Blood Transfusion Reaction Anesthesia experience/problems:: NAC Laterality Cases: Bilateral: Other Other Surgeries: Yes: Angiogram, CABG, Cardiac Catheterization, Coronary Stent, Open Heart Surgery. No: Pacemaker Amputation: Yes (RT AKA 10/12/19) Fractures: No - *Social History Smoking Status: Former smoker Tobacco Type: cigarettes # Packs/Day (cigarettes): 0 Alcohol Intake: never Substance Use Type: denies use *Occupational Status:: disabled Housing: alf Household Members: none *Travel in the last 8 weeks: None Family Hx:: No significant family history
--- NOTE | 2021-02-09 19:09 | PC.NURSE ---
PT ARRIVED TO FLOOR VIA STRETCHER @ 1909
--- NOTE | 2021-02-09 19:22 | PC.NURSE ---
184-checked fsbs with results of 117-notified DELFINO Pierre 1858-radiology at bedside 1902-detailed report called to GELA Bro 1905-pt transported to 2nd floor room 205 via hospital bed and left in care of GELA Bro with bed locked in lowest position, vss, pt stable
[2021-02-10] VITALS (9 sets, daily range): BP systolic 102–172; BP diastolic 64–89; PULSE 87–103; RESP 16–19; TEMP 36.6–37.6; O2SAT 95–100; BMI 30.9
[2021-02-10 06:34] LABS: Basophils # 0.1 K/mm3 (0-0.2); Basophils % 0.6 % (0.1-2.0); Eosinophils # 0.1 K/mm3 (0.0-0.4); Eosinophils % 1.5 % (0.1-12.0); Hematocrit 27.7 % (42.0-52.0); Hemoglobin 8.7 g/dL (14.1-18.0); Lymphocytes # 1.8 K/mm3 (0.7-4.5); Lymphocytes % 22.2 % (10-50); Mean Corpuscular HGB Conc 31.6 g/dL (31.8-35.4); Mean Corpuscular Hemoglobin 28.1 pg (27.0-31.2); Mean Corpuscular Volume 89.1 fl (80-94); Mean Platelet Volume 8.8 fl (7.4-10.4); Monocytes # 0.6 K/mm3 (0.1-1.0); Monocytes % 7.5 % (1.7-9.3); Neutrophils # 5.5 K/mm3 (1.8-7.8); Neutrophils % 68.2 % (37.0-80.0); Platelet Count 294 K/mm3 (142-424); Red Blood Count 3.11 M/mm3 (4.60-6.20); Red Cell Distribution Width 16.1 % (11.5-17.5); White Blood Count 8.1 K/mm3 (4.8-10.8)
[2021-02-10 06:52] LABS: Alanine Aminotransferase 30 U/L (12-78); Albumin Level 3.7 g/dl (3.5-5.0); Albumin/Globulin Ratio 0.8 (1.1-1.8); Alkaline Phosphatase 113 U/L (38-126); Anion Gap 11.7 mEq/L (5-15); Aspartate Amino Transferase 65 U/L (17-59); Bilirubin,Total 0.7 mg/dl (0.2-1.3); Blood Urea Nitrogen 22 mg/dl (9-20); Calcium 9.4 mg/dl (8.4-10.2); Carbon Dioxide 25 mmol/L (22.0-30.0); Chloride 102 mmol/L (98-107); Creatinine Clearance Estimated 91 mL/min (50-200); Estimated Glomerular Filt Rate 52 ml/min (>60); GFR (African American) 63 ML/MIN (>60); Globulin 4.4 g/dL (1.3-3.2); Glucose 182 mg/dl (74-100); Potassium 4.7 mmoL/L (3.5-5.1); Sodium 134 mmol/L (136-145); Total Protein,Serum 8.1 g/dl (6.3-8.2)
[2021-02-10 06:57] LABS: C-Reactive Protein 148.3 mg/L (0-4)
--- NOTE | 2021-02-10 07:16 | P.CONPHA_ITS ---
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
[2021-02-10 07:29] LABS: Erythrocyte Sedimentation Rate 121 mm/hr (0-20)
--- NOTE | 2021-02-10 07:42 | HMH.PHAINT ---
MEDICATION RECONCILIATION COMPLETED USING [facility]
--- NOTE | 2021-02-10 08:04 | HMH.PHACONS ---
- Pharmacy Consult Date: 02/10/21 Time: 08:04 Referring provider: DR. CHACON Reason for Consult:: VANCOMYCIN DOSING Allergies and ADEs:: Allergies Allergy/AdvReac Type Severity Reaction Status Date / Time No Known Allergies Allergy Verified 02/09/21 19:56 Home Medications:: Home Medications Medication Instructions Recorded Confirmed Type Acetaminophen [Tylenol 500mg 500 mg PO Q4HP PRN 12/05/19 02/09/21 History tablet] Aspirin [Aspirin 81mg chewable 81 mg PO DAILY 12/05/19 02/09/21 History tab] Atorvastatin Calcium [Lipitor 80mg 80 mg PO HS 12/05/19 02/09/21 History Tab] Pantoprazole Sodium [Protonix 40mg 40 mg PO DAILY 12/05/19 02/09/21 History tablet] Venlafaxine HCl [Venlafaxine HCl 75 mg PO DAILY 12/05/19 02/09/21 History ER] hydroCHLOROthiazide 12.5 mg PO DAILY 12/05/19 02/09/21 History [Hydrochlorothiazide] polyethylene glycoL 3350 17 gm PO DAILY 12/05/19 02/09/21 History [Polyethylene Glycol 3350] Rivaroxaban [Xarelto 2.5mg Tab*] 2.5 mg PO BID 12/31/19 02/09/21 History Multivitamin 1 each PO DAILY 02/26/20 02/09/21 History Promethazine HCl [Phenergan 25mg 25 mg PO Q4-6H PRN 02/26/20 02/09/21 History tablet] cyclobenzaprine 5 mg tablet 5 mg PO TIDP PRN 07/14/20 02/10/21 History hydrocodone 5 mg-acetaminophen 325 1 tab PO BID PRN #60 tab 09/16/20 02/09/21 Rx mg tablet carvediloL [Carvedilol 12.5mg Tab] 12.5 mg PO BID 09/24/20 02/09/21 History lisinopriL [Prinivil 20mg Tablet] 20 mg PO BID 09/24/20 02/09/21 History quetiapine 100 mg tablet 100 mg PO HS 10/13/20 02/09/21 History oxycodone 10 mg tablet 10 mg PO Q4H PRN #120 tab 12/12/20 02/09/21 Rx gabapentin 300 mg capsule 300 mg PO TID #90 cap 01/07/21 02/09/21 Rx buspirone 10 mg tablet 10 mg PO BID tab 01/29/21 02/09/21 History fluticasone propionate 50 1 spray INTRANASAL DAILY 01/29/21 02/09/21 History mcg/actuation nasal spray,suspension insulin glargine 100 unit/mL (3 60 unit SQ HS ml 01/29/21 02/10/21 History mL) subcutaneous pen ascorbic acid (vitamin C) 1,000 mg 1 g PO DAILY #120 tab 02/03/21 02/09/21 Rx tablet lactulose 10 gram/15 mL oral 30 ml PO DAILYP PRN ml 02/03/21 02/09/21 History solution Insulin Aspart Prot/Insuln Asp 16 unit SQ BID 02/10/21 02/10/21 History [Novolog Mix 70-30 Vial] Sennosides [Senna] 8.6 mg PO DAILY 02/10/21 02/10/21 History Height: 1.91 m Weight: 112.633 kg Laboratory Results:: Laboratory Results - last 24 hr 02/09/21 13:25: WBC 8.0, RBC 3.29 L, Hgb 9.4 L, Hct 29.3 L, MCV 89.3, MCH 28.6, MCHC 32.0, RDW 16.2, Plt Count 284, MPV 9.7, Neut % (Auto) 68.2, Lymph % (Auto) 23.2, [place] % (Auto) 5.6, Eos % (Auto) 2.1, Baso % (Auto) 0.9, Neut # (Auto) 5.4, Lymph # (Auto) 1.9, [place] # (Auto) 0.5, Eos # (Auto) 0.2, Baso # (Auto) 0.1, ESR > 140 H 02/09/21 13:25: Sodium 136, Potassium 4.4, Chloride 99, Carbon Dioxide 29, Anion Gap 12.4, BUN 33 H, Creatinine 1.90 H, Estimated Creat Clear 66, Estimated GFR 36 L, Est GFR ( Amer) 44 L, Glucose 132 H, Calcium 9.6, Total Bilirubin 0.7, AST 86 H, ALT 34, Alkaline Phosphatase 117, C-Reactive Protein 199.5 H, Total Protein 8.4 H, Albumin 4.0, Globulin 4.4 H, Albumin/Globulin Ratio 0.9 L, Procalcitonin 0.239 02/09/21 13:25: Lactate 1.4 02/09/21 18:40: POC Glucose 117 H 02/10/21 06:04: WBC 8.1, RBC 3.11 L, Hgb 8.7 L, Hct 27.7 L, MCV 89.1, MCH 28.1, MCHC 31.6 L, RDW 16.1, Plt Count 294, MPV 8.8, Neut % (Auto) 68.2, Lymph % (Auto) 22.2, [place] % (Auto) 7.5, Eos % (Auto) 1.5, Baso % (Auto) 0.6, Neut # (Auto) 5.5, Lymph # (Auto) 1.8, [place] # (Auto) 0.6, Eos # (Auto) 0.1, Baso # (Auto) 0.1, ESR 121 H 02/10/21 06:04: Sodium 134 L, Potassium 4.7, Chloride 102, Carbon Dioxide 25, Anion Gap 11.7, BUN 22 H D, Creatinine 1.40 H D, Estimated Creat Clear 91, Estimated GFR 52 L, Est GFR ( Amer) 63 D, Glucose 182 H D, Calcium 9.4, Total Bilirubin 0.7, AST 65 H, ALT 30, Alkaline Phosphatase 113, C-Reactive Protein 148.3 H, Total Protein 8.1, Album
--- NOTE | 2021-02-10 08:16 | HMH.ACPN2 ---
Internal Medicine - PN: Subj *Date: 02/10/21 *Time: 08:16 Exam Vital signs and Labs for Last 24 Hours: Temp Pulse Resp BP Pulse Ox 98.7 F 103 H 19 156/64 H 98 02/10/21 07:30 02/10/21 07:30 02/10/21 07:30 02/10/21 07:30 02/10/21 07:30 Laboratory Results - last 24 hr 02/09/21 13:25: WBC 8.0, RBC 3.29 L, Hgb 9.4 L, Hct 29.3 L, MCV 89.3, MCH 28.6, MCHC 32.0, RDW 16.2, Plt Count 284, MPV 9.7, Neut % (Auto) 68.2, Lymph % (Auto) 23.2, [place] % (Auto) 5.6, Eos % (Auto) 2.1, Baso % (Auto) 0.9, Neut # (Auto) 5.4, Lymph # (Auto) 1.9, [place] # (Auto) 0.5, Eos # (Auto) 0.2, Baso # (Auto) 0.1, ESR > 140 H 02/09/21 13:25: Sodium 136, Potassium 4.4, Chloride 99, Carbon Dioxide 29, Anion Gap 12.4, BUN 33 H, Creatinine 1.90 H, Estimated Creat Clear 66, Estimated GFR 36 L, Est GFR ( Amer) 44 L, Glucose 132 H, Calcium 9.6, Total Bilirubin 0.7, AST 86 H, ALT 34, Alkaline Phosphatase 117, C-Reactive Protein 199.5 H, Total Protein 8.4 H, Albumin 4.0, Globulin 4.4 H, Albumin/Globulin Ratio 0.9 L, Procalcitonin 0.239 02/09/21 13:25: Lactate 1.4 02/09/21 18:40: POC Glucose 117 H 02/10/21 06:04: WBC 8.1, RBC 3.11 L, Hgb 8.7 L, Hct 27.7 L, MCV 89.1, MCH 28.1, MCHC 31.6 L, RDW 16.1, Plt Count 294, MPV 8.8, Neut % (Auto) 68.2, Lymph % (Auto) 22.2, [place] % (Auto) 7.5, Eos % (Auto) 1.5, Baso % (Auto) 0.6, Neut # (Auto) 5.5, Lymph # (Auto) 1.8, [place] # (Auto) 0.6, Eos # (Auto) 0.1, Baso # (Auto) 0.1, ESR 121 H 02/10/21 06:04: Sodium 134 L, Potassium 4.7, Chloride 102, Carbon Dioxide 25, Anion Gap 11.7, BUN 22 H D, Creatinine 1.40 H D, Estimated Creat Clear 91, Estimated GFR 52 L, Est GFR ( Amer) 63 D, Glucose 182 H D, Calcium 9.4, Total Bilirubin 0.7, AST 65 H, ALT 30, Alkaline Phosphatase 113, C-Reactive Protein 148.3 H, Total Protein 8.1, Albumin 3.7, Globulin 4.4 H, Albumin/Globulin Ratio 0.8 L I & O for Last 24 hours: Intake & Output 02/07/21 02/08/21 02/09/21 02/10/21 23:59 23:59 23:59 23:59 Intake Total 360 / 360 Output Total 300 / 300 1200 / 1200 Balance -300 / -300 -840 / -840 Weight 248 lb 5 oz 248 lb 5 oz Microbiology Reports for the Last 24 Hours: Microbiology 02/09/21 17:52 Foot,Left - Wound Gram Stain - Final 02/09/21 13:25 Nasopharyngeal Coronavirus COVID-19 PCR - Final 02/09/21 13:25 Foot,Left Gram Stain - Final - *Routine Skin Exam Present: dry, warm, wounds. Absent: intact Comments: L Foot w/ incisions and Drsg C/D/I - *Routine Neurological Exam Present: alert Assessment and Plan (1) Postoperative wound dehiscence Start date: 02/09/21 Status: Acute Qualifiers: Encounter type: subsequent encounter Qualified Code(s): T81.31XD - Disruption of external operation (surgical) wound, not elsewhere classified, subsequent encounter Category: Medical Code(s): T81.31XA - Disruption of external operation (surgical) wound, not elsewhere classified, initial encounter (2) Gangrene of toe of left foot Start date: 02/09/21 Status: Chronic Category: Medical Code(s): I96 - Gangrene, not elsewhere classified (3) Cellulitis of left foot Start date: 02/09/21 Status: Chronic Category: Medical Code(s): L03.116 - Cellulitis of left lower limb (4) Gas gangrene Status: Acute Category: Medical Code(s): A48.0 - Gas gangrene (5) Diabetes mellitus Status: Chronic Qualifiers: Diabetes mellitus type: type 2 Diabetes mellitus usp insulin use: with intermodal dispatcher use Diabetes mellitus complication status: with circulatory complication Diabetes mellitus complication detail: with peripheral angiopathy with gangrene Qualified Code(s): E11.52 - Type 2 diabetes mellitus with diabetic peripheral angiopathy with gangrene; Z79.4 - group home (current) use of insulin Category: Medical Code(s): E11.9 - Type 2 diabetes mellitus without complications (6) Type 2 diabetes mellitus with diabetic peripheral angiopathy and gangrene, with long-term current use
--- NOTE | 2021-02-10 08:18 | XR_ITS ---
PROCEDURE: XR CHEST PORTABLE PICC PLAC CLINICAL HISTORY: Confirm PICC line placement COMPARISON: CR XR CHEST PORTABLE PICC PLAC from 09/24/2020 CR XR CHEST PORTABLE PICC PLAC from 09/24/2020 CR XR CHEST PORTABLE from 02/09/2021 FINDINGS: Median sternotomy and mediastinal clips are noted. Left subclavian PICC line with its tip overlying the SVC. The cardiomediastinal silhouette and pulmonary vascularity are within normal limits. Minor atelectasis is noted in the left lower zone. No lobar consolidation or pleural effusions. Degenerative changes of the visualized thoracic spine. IMPRESSION: Status post CABG. PICC line in satisfactory position. Dictated by: Elaina Wei 02/10/2021 11:14 Elaina Wei in OV 02/10/2021 11:14
--- NOTE | 2021-02-10 08:18 | SW/DCPLANNER ---
Addendum entered by Chantale Lafleur 02/11/21 09:27: I have notified Ángela with [facility] that this patient will return today w/ PICC and IV antibiotics. Ángela has also stated that patient will not need another COVID swab at this time. Original Note: This patient currently resides at [facility]. I have spoke with Ángela from [facility] and she has stated that patient is [facility] level of care. I will continue to follow up with Ángela until patient is medically stable for discharge.
--- NOTE | 2021-02-10 08:25 | HMH.ORTHPN ---
Subjective Date: 02/10/21 <Dulce Saldivar - 02/10/21 08:51> Time: 08:26 <Dulce Saldivar - 02/10/21 08:51> Principal diagnosis: Post I&D of L foot amp site, cellulitis <Dulce Saldivar - 02/10/21 08:51> Interval history: Date of procedure: 02/09/21 Procedure performed:: Left foot incision and drainage, Left wound debridement, Left foot/ankle bone biospies Patient is a 60-year-old diabetic male with a history of PAD, diabetes, VRE MRSA, CRE. Patient was at the wound care clinic today. Patient's wound was significantly worse than it was at the last examination so he was sent to the emergency department for further evaluation. Imaging left foot x-ray and CT showed soft tissue gas. Patient was taken to the OR for planned incision and drainage. We discussed conservative versus surgical treatment options. Conservative treatment options include local wound care, oral and IV antibiotics, change in shoe wear, taping/padding, and off-loading. We discussed for gas infection, conservative care is not appropriate, it needs surgical intervention for left foot I&D. Patient understands that they could have wound healing complications including delayed healing and infection. We discussed that if the wound does not heal, it is possible that they may need a more proximal amputation and could result in further loss of partial foot or loss of leg. We discussed the risks and benefits in great detail. Other surgical risks include: prolonged pain and swelling, further infection requiring oral or IV antibiotics, delay in healing of soft tissue or bone, nerve or blood vessel damage, CRPS/RSD, DVT, anesthesia complications, and even . All questions answered. Patient verbalized understanding. Consent obtained. Medical clearance per ER and Dr. Evans. Patient has been seeing Dr. Brown, Infectious Disease. Patient has a history of surgery: 09/24/20: s/p left partial foot amputation (Lisfranc amp, midtarsal disarticulation), I&D, bone biospy, navicular bone cyst curettage, application of graft and antibiotic beads, application of MICHELLE drain. 02/27/20, S/p: left foot irrigation and debridement, transmetatarsal amputation, advancement skin flap, application of MICHELLE drain. History of multiple infections. 03/25/20: Pseudomonas aeruginosa, Carbapenem Resistant Enterobacteriaceae, WCx, 06/02/20: Proteus mirabilis. We discussed higher risk for limb loss due to PAD, right AKA, DM, neuropathy, history of multidrug resistant organism infection (MRSA, VRE, CRE). Patient has completed: oral Flagyl 500mg, IV daptomycin on 05/08/20, Zerbaxa on 05/22/20. Intra-op specimens, 09/24/20: History of wound and bone infection: MRSA, Proteus mirabilis, Staphylococcus pettenkoferi. PICC, IV Vanco 1750mg completed, PICC removed 11/20/20, Levofloxacin 750mg q24h completed 11/19/20. WCx, 11/25/20: Morganella morganii Operative findings:: Left foot had blistering and skin sloughing. There was ascending cellulitis noted. The foot had edema and erythema. Nonviable soft tissue over the dorsal lateral foot. Multiple incisions made with serosanguineous drainage noted. Approximately 10 cc of fluid drained. The bone was soft and crumbly. Some malodor noted. Suspect patient has recurrent osteomyelitis. Bone cultures were taken of the medial foot, lateral talus and ankle. Post debridement, full thickness ulcer noted. It was loosely repproximately with Prolene and the remaining wound size: 3i3m1ft. It did probe to the bone. Post debridement sharply excisionally, 100% granular tissue with bleeding wound edges noted. Patient resting in bed this am and is wanting to go home. Swelling is some better this am. We will flush the sites with Betadine and normal saline and then packed them with packing strips, cover the site with Betadine soaked 4 x 4's dry 4 x 4's, ABD pad Kerlex and Ignacio wrap. Patient was pre-medicated prior to dressing change with Dilaudid 2mg IVP x 1 dose per RN. Patient afebrile vital signs stable this morning denied an
--- NOTE | 2021-02-10 08:42 | HMH.HP ---
*Admission Date: 02/10/21 *Chief complaint: L Foot wound *History of present illness: 60-year-old male history of diabetes, peripheral artery disease status post transmetatarsal amputation on the left and a right AKA presenting with left lower extremity infection. Patient states he is dealt with diabetic foot wounds on and off for several years. This led to his amputations. He has had a ulcer to his left heel for the past several weeks that is been managed outpatient. He states last week it was checked and was reassuring. Today, during a wound check there was concern for increased erythema and warmth. Patient redirected to the ER. He states he has felt well up until today where he has felt some generalized malaise. He denies any decreased appetite, fever/chills, nausea/vomiting, increased pain, or other changes. Patient caregiver at bedside confirms (Per ED Note). Lab work in the emergency department white blood cell count 8, H/H 9.4/29.3 ESR greater than 140, CRP 200 Sodium 136, potassium 4.4, BUN 33, creatinine 1.9, and GFR 44 02/09/2021 podiatry performs I&D to left foot wound and cultures obtained and sent to laboratory 02/09/21 L Foot XR: FINDINGS: There is midfoot amputation. Diffuse osteopenia of the tarsal bones noted. Multiple antibiotic beads are again noted, unchanged. There is evidence of sclerosis and irregularity of the navicular bone, demonstrates no significant interval change compared to prior study. Few foci of air noted within the soft tissues on the dorsal aspect of the talus and navicular bone. This may be secondary to known infectious process/cellulitis. Vascular calcification is noted. IMPRESSION: Cycle of prior midfoot amputation. Few foci of air noted in the soft tissues of the dorsum adjacent to the amputated site. This may be secondary to recent surgery versus cellulitis/infectious process. Dictated by: Eriberto 02/09/[address]: FINDINGS: There is extensive subcutaneous soft tissue edema of the left lower extremity 3 its entire visualized extent. Midfoot amputation is again noted. There is evidence of multiple hyperdensities with fragmentation noted in the foot at the site of amputation, likely postsurgical and heterotopic ossification. Significant amount of soft tissue air is noted. This extends up to the level of the navicular bone. Multiple lucent areas are noted within the navicular bone, calcaneum and talus with focal areas of sclerosis. There are multiple focal areas of heterogeneous density with lucencies and sclerosis noted in the distal tibia and fibula. Minor cortical irregularity of the anterior navicular bone is noted with adjacent associated significant soft tissue air, raises the concern for osteomyelitis.. There is a focal fluid density collection noted in the at the site of amputation with containing air and fluid. IMPRESSION: Focal areas of soft tissue air and fluid noted adjacent to the navicular bone, raises the concern for fluid collection. Multiple focal lucent and sclerotic areas noted within the navicular bone with cortical irregularity, may be secondary to Charcot arthropathy. Osteomyelitis should be considered. MRI of the foot without and with contrast should be considered for further evaluation. Cellulitis of the left lower extremity. Dictated by: Eriberto, 02/09/21 CXR: FINDINGS: Median sternotomy and mediastinal clips are noted. Minor bibasal atelectasis. No focal consolidation, pleural effusions or pneumothorax. Cardiac size and central pulmonary vasculature within normal limits. Visualized osseous structures are unremarkable. IMPRESSION: Status post CABG. No focal consolidation or pleural effusions. Dictated by: Eriberto, 60-year-old patient sitting up in bed reports pain is under control, denies any needs/concerns. Podiatry has been in this morning and change dressing to left foot. Expl
--- NOTE | 2021-02-10 15:04 | HMH.ANESII ---
[facility] Anesthesia Record Part II Discharge Time: 18:33 Destination: floor PACU nurse assessment reviewed?: Yes Patient Condition:: Good Anesthesia Complications:: None Swallowing reflex intact?: Yes Cyanosis?: No Blood Pressure: 102/81 Pulse Rate: 87 Temperature: 97.8 F Mental Status: Alert & Oriented Pain level:: 8 Nausea and/or vomitting:: None Intake, IV Amount: 1,500
--- NOTE | 2021-02-10 19:13 | PC.NURSE ---
No acute changes this shift. Pt medicated per JAN for pain w/ noted relief. Lungs CTA. Abdomen soft, large, non-tender w/ active BS in all quads. Voiding per urinal w/o difficulty. R BKA. L Foot dressing c/d/i, no drainage noted. Pt requires assistance x1 when transferring. Pt sat up to chair for short periods today. Currently sitting up in bed watching TV. No needs voiced @ this time. Call stephen w/in reach.
[2021-02-11 00:40] LABS: POC Glucose,Bedside 211 (70-110)
[2021-02-11 03:47] VITALS: BP 152/59; PULSE 82; RESP 16; TEMP 37.4; O2SAT 96
--- NOTE | 2021-02-11 04:31 | PC.NURSE ---
shift summary lung sounds are clear with sats maintained 95 % or above on room are with a rate ranging from 16-18. pt complained of pain once during the shift which was relieved with pain meds. pt hoang a lot of difficulty transferring from wheelchair to bed. pt uses bedside urinal urine is clear and yellow in color. pt is alert and oriented X4.
[2021-02-11 04:51] VITALS: BMI 30.4
[2021-02-11 07:34] VITALS: BP 144/78; PULSE 101; RESP 16; TEMP 36.8; O2SAT 100
[2021-02-11 07:48] LABS: Basophils % 0.5 % (0.1-2.0); Eosinophils # 0.2 K/mm3 (0.0-0.4); Eosinophils % 2.1 % (0.1-12.0); Hematocrit 24.7 % (42.0-52.0); Lymphocytes # 2.5 K/mm3 (0.7-4.5); Mean Corpuscular HGB Conc 31.8 g/dL (31.8-35.4); Mean Corpuscular Hemoglobin 28.2 pg (27.0-31.2); Mean Corpuscular Volume 88.8 fl (80-94); Mean Platelet Volume 8.2 fl (7.4-10.4); Monocytes # 0.9 K/mm3 (0.1-1.0); Monocytes % 11.1 % (1.7-9.3); Neutrophils # 4.2 K/mm3 (1.8-7.8); Neutrophils % 54.3 % (37.0-80.0); Platelet Count 304 K/mm3 (142-424); Red Blood Count 2.78 M/mm3 (4.60-6.20); Red Cell Distribution Width 16.1 % (11.5-17.5); White Blood Count 7.8 K/mm3 (4.8-10.8)
--- NOTE | 2021-02-11 07:52 | PC.NURSE ---
patient had positive covid swab on 12/03/20 at [facility]. continues to test positive
[2021-02-11 07:54] LABS: Alanine Aminotransferase 25 U/L (12-78); Albumin Level 3.5 g/dl (3.5-5.0); Albumin/Globulin Ratio 0.8 (1.1-1.8); Alkaline Phosphatase 103 U/L (38-126); Anion Gap 9.4 mEq/L (5-15); Aspartate Amino Transferase 53 U/L (17-59); Bilirubin,Total 0.8 mg/dl (0.2-1.3); Blood Urea Nitrogen 15 mg/dl (9-20); Calcium 9.4 mg/dl (8.4-10.2); Carbon Dioxide 30 mmol/L (22.0-30.0); Chloride 102 mmol/L (98-107); Creatinine Clearance Estimated 114 mL/min (50-200); Estimated Glomerular Filt Rate 69 ml/min (>60); GFR (African American) 83 ML/MIN (>60); Globulin 4.2 g/dL (1.3-3.2); Glucose 173 mg/dl (74-100); Hemoglobin 8.1 g/dL (14.1-18.0); Potassium 4.4 mmoL/L (3.5-5.1); Sodium 137 mmol/L (136-145); Total Protein,Serum 7.7 g/dl (6.3-8.2)
--- NOTE | 2021-02-11 08:43 | HMH.DCSUM ---
General - General Admission date:: 02/09/21 Discharge date: 02/11/21 HPI HPI: 60-year-old male history of diabetes, peripheral artery disease status post transmetatarsal amputation on the left and a right AKA presenting with left lower extremity infection. Patient states he is dealt with diabetic foot wounds on and off for several years. This led to his amputations. He has had a ulcer to his left heel for the past several weeks that is been managed outpatient. He states last week it was checked and was reassuring. Today, during a wound check there was concern for increased erythema and warmth. Patient redirected to the ER. He states he has felt well up until today where he has felt some generalized malaise. He denies any decreased appetite, fever/chills, nausea/vomiting, increased pain, or other changes. Patient caregiver at bedside confirms (Per ED Note). Lab work in the emergency department white blood cell count 8, H/H 9.4/29.3 ESR greater than 140, CRP 200 Sodium 136, potassium 4.4, BUN 33, creatinine 1.9, and GFR 44 Hospital Course Hospital Course: 60-year-old male history of diabetes, peripheral artery disease status post transmetatarsal amputation on the left and a right AKA presenting with left lower extremity infection. Patient states he is dealt with diabetic foot wounds on and off for several years. This led to his amputations. He has had a ulcer to his left heel for the past several weeks that is been managed outpatient. He states last week it was checked and was reassuring. Today, during a wound check there was concern for increased erythema and warmth. Patient redirected to the ER. He states he has felt well up until today where he has felt some generalized malaise. He denies any decreased appetite, fever/chills, nausea/vomiting, increased pain, or other changes. Patient caregiver at bedside confirms (Per ED Note). Lab work in the emergency department white blood cell count 8, H/H 9.4/29.3 ESR greater than 140, CRP 200 Sodium 136, potassium 4.4, BUN 33, creatinine 1.9, and GFR 44 02/09/2021 podiatry performs I&D to left foot wound and cultures obtained and sent to laboratory 02/09/21 L Foot XR: FINDINGS: There is midfoot amputation. Diffuse osteopenia of the tarsal bones noted. Multiple antibiotic beads are again noted, unchanged. There is evidence of sclerosis and irregularity of the navicular bone, demonstrates no significant interval change compared to prior study. Few foci of air noted within the soft tissues on the dorsal aspect of the talus and navicular bone. This may be secondary to known infectious process/cellulitis. Vascular calcification is noted. IMPRESSION: Cycle of prior midfoot amputation. Few foci of air noted in the soft tissues of the dorsum adjacent to the amputated site. This may be secondary to recent surgery versus cellulitis/infectious process. Dictated by: Eriberto 02/09/[address]: FINDINGS: There is extensive subcutaneous soft tissue edema of the left lower extremity 3 its entire visualized extent. Midfoot amputation is again noted. There is evidence of multiple hyperdensities with fragmentation noted in the foot at the site of amputation, likely postsurgical and heterotopic ossification. Significant amount of soft tissue air is noted. This extends up to the level of the navicular bone. Multiple lucent areas are noted within the navicular bone, calcaneum and talus with focal areas of sclerosis. There are multiple focal areas of heterogeneous density with lucencies and sclerosis noted in the distal tibia and fibula. Minor cortical irregularity of the anterior navicular bone is noted with adjacent associated significant soft tissue air, raises the concern for osteomyelitis.. There is a focal fluid density collection noted in the at the site of amputation with containing air and fluid. IMPRESSION: Sam
--- NOTE | 2021-02-11 08:47 | HMH.ORTHPN ---
Subjective Date: 02/11/21 Time: 08:00 Principal diagnosis: Post I&D of L foot amp site, cellulitis Interval history: Patient doing very well this morning he is sitting up in his wheelchair. Patient states the pain has been tolerable he has not been medicated this morning but will be after dressing change. Swelling has improved since yesterday. The lower leg and foot is not as warm to touch. I will do the dressing change flush the sites repacked them with the Betadine strips cover with Betadine soaked 4 x 4, dry sterile dressing and Kerlix and Ignacio wrap. Patient still wanting to go home or back to the retirement. I discussed with him that he will be getting IV antibiotics through his PICC line and daily dressing changes once there. PN: Obj Ex Vital signs: Temp Pulse Resp BP Pulse Ox 98.3 F 101 H 16 144/78 H 101 H 02/11/21 07:34 02/11/21 07:34 02/11/21 07:34 02/11/21 07:34 02/11/21 07:34 - Constitutional no acute distress - Routine HEENT Exam Head: Present: normocephalic Eye: Present: PERRL ENT: Present: mucous membranes moist - Routine Neck Exam Present: trachea midline - Routine Chest/Breast/Axilla Exam Chest wall: Absent: tenderness - Routine Respiratory Exam Absent: accessory muscle use, respiratory distress - Routine Cardiovascular Exam Present: RRR - Routine Abdominal Exam Present: soft - Routine Extremities Exam Present: edema, pulses intact, amputation - Detailed Lower Extremity Exam Top foot image: 1 - Left foot Partial amputation (Lisfranc amp, midtarsal disarticulation) S/P I &D 02/09/21, for cellulits. The site has multiple incisions made with sutures in place. In those sites with sutures they were enough area left for drainage and packing with Betadine soaked packing strips. 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 The redness and edema has improved since yesterday. Sites were flushed with Betadine and normal saline, we used packing strips soaked in Betadine where there sutures we had left areas for the site to drain. There was not very much drainage expressed from the sites after flushing them this morning. Site is still very tender to touch, but patient stated less pain today than yesterday when doing the procedure. After flushing the areas we did proceed to pack them with the Betadine packing strips and then covered with Betadine soaked 4 x 4, dry 4 x 4, ABD pad, Kerlix and Ignacio wrap. Plan: 1. Maintain dressing clean dry and intact to left foot, reinforce as necessary. 2. PWB to heel in short fracture boot, walker. 3. Antibiotics: IV Vanco, Zosyn per PICC line for 4 weeks then will re-evaluate. Could we have patient to get weekly labs CBC, CMP, ESR, CRP with his Vanc. trough sent to us and Dr. Evans's office to trend his infection markers. 4. The site should be packed with the Betadine packing strips, Betadine soaked 4 x 4, dry 4 x 4's and ABD pad Kerlix and Ignacio wrap 5. DM diet 6. Monitor bone cultures 7. Patient is high risk for limb loss. He has a right AKA. Given the recurrent infections and history of MRSA
--- NOTE | 2021-02-11 11:53 | PC.NURSE ---
CALLED REPORT TO [facility]
[2021-02-11 12:00] VITALS: BP 138/80; PULSE 91; RESP 18; TEMP 37; O2SAT 94
[2021-02-12 23:45] LABS: POC Glucose,Bedside 218 (70-110)
[2021-02-12 23:45] LABS: POC Glucose,Bedside 169 (70-110)
== END 2021-02-11 13:38 | disposition home or self-care (01) | DRG 622 ==
LOC: ER 15:25 → 2ND 02-10 05:53
PROVIDERS: Podiatrist; Admitting Provider Emergency Medicine; Emergency Provider Emergency Medicine; PCP Emergency Medicine; Visit Provider Emergency Medicine
PROC: 0JBR0ZZ Excision of Left Foot Subcutaneous Tissue and Fascia, Open Approach (ICD-10-PCS; principal; 2021-02-09 17:00)
DX: E11.69 Type 2 diabetes mellitus with other specified complication (principal); A48.0 Gas gangrene; M86.172 Other acute osteomyelitis, left ankle and foot; E11.52 Type 2 diabetes mellitus with diabetic peripheral angiopathy with gangrene; L97.429 Non-pressure chronic ulcer of left heel and midfoot with unspecified severity; L03.116 Cellulitis of left lower limb; T81.30XA Disruption of wound, unspecified, initial encounter; E11.621 Type 2 diabetes mellitus with foot ulcer; Z79.4 Long term (current) use of insulin; Z87.891 Personal history of nicotine dependence; Z89.611 Acquired absence of right leg above knee; Z86.14 Personal history of Methicillin resistant Staphylococcus aureus infection; Z89.432 Acquired absence of left foot; E11.59 Type 2 diabetes mellitus with other circulatory complications; E11.40 Type 2 diabetes mellitus with diabetic neuropathy, unspecified; I25.2 Old myocardial infarction; E78.5 Hyperlipidemia, unspecified; I25.10 Atherosclerotic heart disease of native coronary artery without angina pectoris; W19.XXXA Unspecified fall, initial encounter; Z91.81 History of falling; Y83.8 Other surgical procedures as the cause of abnormal reaction of the patient, or of later complication, without mention of misadventure at the time of the procedure; Z95.1 Presence of aortocoronary bypass graft; Z95.5 Presence of coronary angioplasty implant and graft
CPT/HCPCS: 11000; 20240; 36569; 28302; 36415; 71045; 73600; 73630; 73701; 80053; 82962; 83605; 84145; 85025; 85651; 86140; 87040; 87070; 87075; 87077; 87081; 87186; 87205; 88305; 88311; 93005; 96365; 96367; 99284; C1751; J2543; J3370; Q9967; U0003

== ENCOUNTER → 2021-02-13 10:54 | Outpatient (CLI) | payer MEDICAID, SELFPAY ==
[2021-02-13 17:16] LABS: Chloride 107 mmol/L (98-107); Sodium 140 mmol/L (136-145)
[2021-02-13 17:19] LABS: Blood Urea Nitrogen 16 mg/dl (9-20); Calcium 8.9 mg/dl (8.4-10.2); Carbon Dioxide 26 mmol/L (22.0-30.0); Estimated Glomerular Filt Rate 69 ml/min (>60); GFR (African American) 83 ML/MIN (>60); Glucose 126 mg/dl (74-100)
== END ==
PROVIDERS: Visit Provider Emergency Medicine
DX: M86.9 Osteomyelitis, unspecified (principal); Z51.81 Encounter for therapeutic drug level monitoring
CPT/HCPCS: 80048; 80202

== ENCOUNTER → 2021-02-17 04:50 | Outpatient (CLI) | payer MEDICAID, SELFPAY ==
[2021-02-17 05:19] LABS: Chloride 108 mmol/L (98-107); Potassium 4.6 mmoL/L (3.5-5.1); Sodium 141 mmol/L (136-145)
[2021-02-17 05:22] LABS: Anion Gap 11.6 mEq/L (5-15); Blood Urea Nitrogen 15 mg/dl (9-20); Calcium 9.5 mg/dl (8.4-10.2); Carbon Dioxide 26 mmol/L (22.0-30.0); Estimated Glomerular Filt Rate 76 ml/min (>60); GFR (African American) 93 ML/MIN (>60); Glucose 147 mg/dl (74-100)
[2021-02-17 05:51] LABS: Vancomycin,Trough 18.6 ug/mL (5.0-10.0)
== END ==
PROVIDERS: Visit Provider Emergency Medicine
DX: Z51.81 Encounter for therapeutic drug level monitoring (principal)
CPT/HCPCS: 80048; 80202

== ENCOUNTER → 2021-02-20 04:51 | Outpatient (CLI) | payer MEDICAID, SELFPAY ==
[2021-02-20 05:10] LABS: Anion Gap 12.2 mEq/L (5-15); Blood Urea Nitrogen 16 mg/dl (9-20); Calcium 8.9 mg/dl (8.4-10.2); Carbon Dioxide 24 mmol/L (22.0-30.0); Chloride 108 mmol/L (98-107); Estimated Glomerular Filt Rate 86 ml/min (>60); GFR (African American) 105 ML/MIN (>60); Glucose 291 mg/dl (74-100); Potassium 4.2 mmoL/L (3.5-5.1); Sodium 140 mmol/L (136-145)
[2021-02-20 05:14] LABS: Vancomycin,Trough 18.5 ug/mL (5.0-10.0)
== END ==
PROVIDERS: Visit Provider Emergency Medicine
DX: I96 Gangrene, not elsewhere classified (principal); Z51.81 Encounter for therapeutic drug level monitoring
CPT/HCPCS: 80048; 80202

== ENCOUNTER → 2021-02-26 22:47 | Outpatient (CLI) | payer MEDICAID, SELFPAY ==
[2021-02-26 23:08] LABS: Anion Gap 10.3 mEq/L (5-15); Blood Urea Nitrogen 12 mg/dl (9-20); Carbon Dioxide 27 mmol/L (22.0-30.0); Chloride 105 mmol/L (98-107); Estimated Glomerular Filt Rate 76 ml/min (>60); GFR (African American) 93 ML/MIN (>60); Glucose 262 mg/dl (74-100); Potassium 4.3 mmoL/L (3.5-5.1); Sodium 138 mmol/L (136-145)
[2021-02-26 23:13] LABS: Vancomycin,Trough 18.4 ug/mL (5.0-10.0)
== END ==
PROVIDERS: Visit Provider Emergency Medicine
DX: M86.9 Osteomyelitis, unspecified (principal); Z51.81 Encounter for therapeutic drug level monitoring
CPT/HCPCS: 80048; 80202

== ENCOUNTER → 2021-03-05 16:48 | Outpatient (CLI) | payer MEDICAID, SELFPAY ==
[2021-03-05 18:10] LABS: Anion Gap 12.2 mEq/L (5-15); Blood Urea Nitrogen 13 mg/dl (9-20); Calcium 9.4 mg/dl (8.4-10.2); Carbon Dioxide 29 mmol/L (22.0-30.0); Chloride 104 mmol/L (98-107); Estimated Glomerular Filt Rate 62 ml/min (>60); GFR (African American) 75 ML/MIN (>60); Glucose 263 mg/dl (74-100); Potassium 4.2 mmoL/L (3.5-5.1); Sodium 141 mmol/L (136-145)
== END ==
PROVIDERS: Visit Provider Emergency Medicine
DX: M86.672 Other chronic osteomyelitis, left ankle and foot (principal); Z51.81 Encounter for therapeutic drug level monitoring
CPT/HCPCS: 80048; 80202

== ENCOUNTER → 2021-03-09 09:52 | Outpatient (CLI) | payer MEDICAID, SELFPAY ==
--- NOTE | 2021-03-09 09:57 | XR_ITS ---
PROCEDURE: XR TIBIA FIBULA LT 2V CLINICAL INDICATION: osteomylitis COMPARISON: CR XR ANKLE WT BEARING LT MIN 3V from 01/21/2021 CR XR ANKLE LT 2V from 02/09/2021 FINDINGS: Decreased attenuation is present involving the distal aspect of the tibia which may be due to osteopenia with osteoarthritic change. There is diffuse vascular calcification. Patient has had a midfoot amputation not well demonstrated on this exam. Proximal mid aspect of the tibia and fibula have an unremarkable appearance. IMPRESSION: No acute finding of the tibia or fibula Dictated by: Kelvin Peterson MD 03/09/2021 12:16 Kelvin Peterson MD in [place] 03/09/2021 12:16
== END ==
PROVIDERS: PCP Emergency Medicine; Visit Provider Orthopaedic Surgery
DX: M86.672 Other chronic osteomyelitis, left ankle and foot
CPT/HCPCS: 73590

== ENCOUNTER 2021-03-19 09:00 | Outpatient (RCR) | payer MEDICAID, SELFPAY ==
--- NOTE | 2021-01-21 09:42 | HMH.PTOPWND ---
Rehab Outpt Wound Evaluation Rehab OP Wound Evaluation Start: 01/21/21 08:43 Freq: Status: Active Protocol: Document 01/21/21 09:31 CLAY (Rec: 01/21/21 09:42 PHOMELLISA [id number]) Electronically Signed By Josh France, PT 01/21/21 09:31 Subjective/History History History Pt is 60 yoaam who presents with L lateral foot wound x ~ 1-2 wks. He has hx of difficulty healing from prior L transmetatarsal amputation. He had callus on the lateral L foot at his last visit with DPM which was debrided and revealed a wound underneath. He reports increased lateral foot/ankle pain for several wks due to a fall he suffered at [place] [facility]. He has PMH of CHF, CAD, OH, HTN, HL, PAD, CVI, R AKA, and DM-II with last A1c of 9.7%. Subjective Subjective He c/o increased pain along the lateral L ankle anf foot at this time. Some increased pitting edema to the L LE noted, 2+ pitting. Sharp excisional debridement performed of non-viable tissue surrounding the wound bed. Wound Eval Wound Left Lateral Foot Wound Type Diabetic Foot Ulcer Is This a Chronic Wound No Wound Length (cm) 3.0 Wound Width (cm) 1.5 Wound Bed Appearance Watchtower Percentage Granulated (%) 90 Wound Margins Description Indistinct Edema Type Pitting Edema Degree 2+ Query Text:1+ Trace, Barely Detectable, Rebound 15-30 seconds 2+ Moderate, Slight Indentation, Rebound 10-20 seconds 3+ Deep, Deeper Indentation, Rebound > 30 seconds 4+ Very Deep, Rebound > 60 seconds Edema Appearance Puffy Drainage Description Serosanguineous Drainage Amount Small Drainage Odor No Odor Primary Dressing Silver Dressing Comment opticell Ag Wound Secondary Dressing Type Composite,Gauze Roll/Wrap, Elastic Bandage Comment optifoam gentle SA Wound Debridement Method Sharps,Forceps,Gauze Wound Debridement Amount of Tissue Moderate Removed
--- NOTE | 2021-02-26 13:58 | HMH.RHREAS ---
Rehab Reassessment Rehab OP Re-assessment Start: 02/26/21 13:34 Freq: Status: Active Protocol: Document 02/26/21 13:36 CLAY (Rec: 02/26/21 13:56 PHOMELLISA [id number]) Electronically Signed By Josh France, PT 02/26/21 13:36 Rehab Re-assessment Subjective Subjective Pt with no current c/o pain, but remains tender to palpation in the quinn-wound areas of the L foot. Objective Objective Notes Multiple L foot wounds present S/P further debridement by DPM, most with drains in place to wick away drainage. L foot wounds (all in cm) medial: L= 0.1 W= 1.0 center dorsum: L= 0.3 W= 0.8 distal lateral: L= 0.5 W= 3.3 posterior lateral: L= 1.0 W=1. 0 planter lateral: L= 0.5 W= 0.5 Assessment Progress Assessment Progressing as Expected Assessment Notes Pt continues to present with 2 + pitting edema throughout the L lower leg. He has multiple incisions that remain open, but minimal maceration. Improving drainage, but ir remains serous and mod-large amts. Patient goals met None Goals Not Met ST,2,3,4 LT,2,3,4 Revised Goals none Plan Plan Continue per initial POC. Frequency of Therapy 2 x/wk Duration of therapy 8 wks Time and Billing Re-Eval Time 15 Re-Eval Billing Units 1 PHYSICIAN CERTIFICATION: I certify the specified therapy services for [place]on Hilton are required, authorized, and reviewed every 30 days.
== END 2021-03-19 09:05 | disposition home or self-care (01) ==
LOC: PT 09:00
PROVIDERS: PCP Emergency Medicine; Visit Provider Podiatrist
DX: L03.116 Cellulitis of left lower limb; Z89.432 Acquired absence of left foot
CPT/HCPCS: 97140; 97163; 97164; 97597

== ENCOUNTER → 2021-03-20 08:07 | Outpatient (CLI) | payer MEDICAID, SELFPAY ==
--- NOTE | 2021-03-20 | CA_ITS ---
APPROVED REPORT Exam: Pharmacologic Technologist: jennifer yip, Ht: 6 ft 2 in Wt: 253 lbs BSA: 2.40 m2 HR: 70 bpm BP: 150/62 mmHg Rhythm: NSR inf-lat stt abnormalities Indications: Pre-OP Medical History Medications: Lisinopril,,,,, Asa,,,,, Hydrocodone,,,,, Gabapentin,,,,, Vitamin C,,,,, HCTZ,,,,, Carvedilol,,,,, Flonase,,,,, Buspirone,,,,, INSULIN,,,,, Tylenol,,,,, ProMETHAZINE,,,,, Allergies: NKA Cardiac Risk Factors: HTN, Hyperlipidemia, Diabetes (insulin), FHX of CAD Stress Test Details Test: LEXISCAN HR Resting HR: 69 bpm Max Heart Rate (APMHR): 161.181647 bpm Max HR Achieved: 89 bpm Target HR (85% APMHR): 136.423105 bpm % of APMHR: 55.28 Recovery HR: 85 bpm BP Resting BP: 150/62 mmHg Max BP: 150/62 mmHg Recovery BP: 145.0/65.0 mmHg ECG Resting ECG: NSR, Inf lat stt abnormalities Clinical Reason for Termination: Completed Protocol Exercise duration: 04:01 min Highest Stage Achieved: Stress ECG Conclusion No chest pain. No arrhythmia or ectopy. Less than 1.5mm ST Segment changes. Non-diagnostic. Electronically signed by : Edd Cortes, 03/20/2021 13:57:43
--- NOTE | 2021-03-20 08:07 | NM_ITS ---
APPROVED REPORT Exam: Nuclear Stress Test Indication: cad..RI..hypertension..diabetes..high chol..family history Patient Location: Outpatient Stress Tech: Salina Malcolm MS Tech:JOSHUA Sapp RT(R)(N) Ht: 6 ft 2 in Wt: 253 lbs HR: 70 bpm BP: 150/62 mmHg BSA: 2.40 m2 BMI: 32.4 History: cad..RI..hypertension..diabetes..high chol..family history Procedure: Patient received a 0.4 mg of intravenous Lexiscan, resting heart rate 70 bpm, resting blood pressure 150/62 mmHg, with Lexiscan maximum heart rate achived was 87 bpm which is 85 % of the maximum predicted heart rate and blood pressure was 133/69 mmHg. With Lexiscan, patient denied any complaint of chest pain. Electrocardiogram Resting electrocardiogram shows sinus rhythm nonspecific ST-T changes, with Lexiscan there is less than 1.[address] segment depression noted from the baseline EKG. The EKG portion of the Lexiscan is nondiagnostic. Cardiac Stress and Resting SPECT Images: Cardiac Stress and Resting SPECT images were obtained using technetium 99m Myoview 28.7 mCi stress and 9.94 mCi at rest. Gated SPECT for analysis of segmental wall motion and calculation of the ejection fraction also noted. Cardiac stress and resting SPECT images show moderate to large sized area of fixed defect involving the anterior, anterior apical apex anteroseptal and inferior apical wall consistent with area of myocardial scarring without significant quinn-infarct ischemia. Computer derived ejection fraction is 39% with marked hypokinesis involving the anterior, anterior apical, apex, anteroseptal and inferior apical wall. Right ventricle is normal size and contractility. Conclusion: 1. The EKG portion of the Lexiscan is nondiagnostic. 2. Scintigraphic evidence of myocardial scarring involving the anterior, anterior apical, apex, anteroseptal and inferior apical wall without significant quinn-infarct ischemia. Computer derived ejection fraction 39% with segmental wall motion abnormality described above, right ventricle is normal size and contractility. 3. Abnormal Lexiscan Myoview study. Electronically signed by : Edd Cortes, 03/20/2021 14:01:19
== END ==
PROVIDERS: PCP Emergency Medicine; Visit Provider Physician Assistant
DX: Z01.810 Encounter for preprocedural cardiovascular examination (principal); I25.10 Atherosclerotic heart disease of native coronary artery without angina pectoris; Z95.1 Presence of aortocoronary bypass graft
CPT/HCPCS: 78452; 93017; A9502; J2785

== ENCOUNTER → 2021-03-23 14:25 | Outpatient (CLI) | payer MEDICAID, SELFPAY ==
[2021-03-23 14:46] LABS: Basophils # 0.1 K/mm3 (0-0.2); Eosinophils # 0.2 K/mm3 (0.0-0.4); Eosinophils % 3.7 % (0.1-12.0); Hematocrit 31.3 % (42.0-52.0); Hemoglobin 9.7 g/dL (14.1-18.0); Lymphocytes # 2.2 K/mm3 (0.7-4.5); Lymphocytes % 42.6 % (10-50); Mean Corpuscular Hemoglobin 28.4 pg (27.0-31.2); Mean Corpuscular Volume 91.5 fl (80-94); Mean Platelet Volume 8.1 fl (7.4-10.4); Monocytes # 0.6 K/mm3 (0.1-1.0); Monocytes % 11.3 % (1.7-9.3); Neutrophils # 2.2 K/mm3 (1.8-7.8); Neutrophils % 41.4 % (37.0-80.0); Platelet Count 390 K/mm3 (142-424); Red Blood Count 3.41 M/mm3 (4.60-6.20); Red Cell Distribution Width 15.8 % (11.5-17.5); White Blood Count 5.2 K/mm3 (4.8-10.8)
[2021-03-23 14:48] LABS: Alanine Aminotransferase 12 U/L (12-78); Albumin Level 3.8 g/dl (3.5-5.0); Alkaline Phosphatase 112 U/L (38-126); Anion Gap 7.4 mEq/L (5-15); Aspartate Amino Transferase 28 U/L (17-59); Bilirubin,Total 0.3 mg/dl (0.2-1.3); Blood Urea Nitrogen 12 mg/dl (9-20); Calcium 9.4 mg/dl (8.4-10.2); Carbon Dioxide 30 mmol/L (22.0-30.0); Chloride 106 mmol/L (98-107); Estimated Glomerular Filt Rate 62 ml/min (>60); GFR (African American) 75 ML/MIN (>60); Globulin 3.8 g/dL (1.3-3.2); Glucose 238 mg/dl (74-100); Potassium 4.4 mmoL/L (3.5-5.1); Sodium 139 mmol/L (136-145); Total Protein,Serum 7.6 g/dl (6.3-8.2)
[2021-03-23 14:53] LABS: C-Reactive Protein 5.6 mg/L (0-4)
[2021-03-23 15:42] LABS: Activated Partial Thrombo Time 26.6 seconds (22.8-30.6); INR 0.94 (0.9-1.1); Prothrombin Time 11.1 seconds (10.1-12.5)
[2021-03-23 16:15] LABS: Erythrocyte Sedimentation Rate 129 mm/hr (0-20)
== END ==
PROVIDERS: Orthopaedic Surgery; Visit Provider Emergency Medicine
DX: Z01.818 Encounter for other preprocedural examination (principal); M86.9 Osteomyelitis, unspecified
CPT/HCPCS: 36415; 80053; 85025; 85610; 85651; 85730; 86140

== ENCOUNTER → 2021-03-28 07:27 | Outpatient (CLI) | payer MEDICAID, SELFPAY | PROVIDERS: Visit Provider Emergency Medicine | DX: Z20.822 Contact with and (suspected) exposure to COVID-19 (principal) | CPT/HCPCS: U0003 ==

== ENCOUNTER → 2021-03-30 07:54 | Outpatient (CLI) | payer MEDICAID, SELFPAY ==
[2021-03-30 08:45] LABS: Basophils # 0.1 K/mm3 (0-0.2); Eosinophils # 0.2 K/mm3 (0.0-0.4); Eosinophils % 3.4 % (0.1-12.0); Hematocrit 33.5 % (42.0-52.0); Hemoglobin 9.7 g/dL (14.1-18.0); Lymphocytes # 1.9 K/mm3 (0.7-4.5); Lymphocytes % 39.9 % (10-50); Mean Corpuscular Volume 93.2 fl (80-94); Mean Platelet Volume 7.6 fl (7.4-10.4); Monocytes # 0.4 K/mm3 (0.1-1.0); Neutrophils # 2.2 K/mm3 (1.8-7.8); Neutrophils % 46.6 % (37.0-80.0); Platelet Count 320 K/mm3 (142-424); Red Blood Count 3.59 M/mm3 (4.60-6.20); Red Cell Distribution Width 15.1 % (11.5-17.5); White Blood Count 4.7 K/mm3 (4.8-10.8)
[2021-03-30 09:30] LABS: Activated Partial Thrombo Time 25.2 seconds (22.8-30.6); INR 0.96 (0.9-1.1); Prothrombin Time 11.4 seconds (10.1-12.5)
[2021-03-30 09:31] LABS: Erythrocyte Sedimentation Rate 110 mm/hr (0-20)
[2021-03-30 09:55] LABS: Alanine Aminotransferase 10 U/L (12-78); Alkaline Phosphatase 106 U/L (38-126); Anion Gap 6.4 mEq/L (5-15); Aspartate Amino Transferase 43 U/L (17-59); Bilirubin,Total 0.6 mg/dl (0.2-1.3); Blood Urea Nitrogen 21 mg/dl (9-20); Calcium 9.7 mg/dl (8.4-10.2); Carbon Dioxide 33 mmol/L (22.0-30.0); Chloride 104 mmol/L (98-107); Estimated Glomerular Filt Rate 57 ml/min (>60); GFR (African American) 68 ML/MIN (>60); Globulin 3.9 g/dL (1.3-3.2); Glucose 148 mg/dl (74-100); Iron 51 ug/dL (49-181); Potassium 4.4 mmoL/L (3.5-5.1); Sodium 139 mmol/L (136-145); Total Protein,Serum 7.9 g/dl (6.3-8.2)
[2021-03-30 10:00] LABS: C-Reactive Protein 17.9 mg/L (0-4)
[2021-03-30 11:18] LABS: Vitamin B12 544 pg/mL (239-931)
[2021-03-30 11:49] LABS: Folate > 20.00 ng/mL
[2021-03-30 18:10] LABS: Total Iron Binding Capacity 246 ug/dL (261-462)
[2021-04-02 05:12] LABS: Zinc 74 ug/dL (44-115)
[2021-04-02 13:30] LABS: Vitamin C 0.9 mg/dL (0.4-2.0)
[2021-04-03 13:44] LABS: 1,25 Dihydroxy Vitamin D 67 pg/mL (.); 1,25-Dihydroxy, Vitamin D-2 <10 pg/mL (.); 1,25-Dihydroxy, Vitamin D-3 67 pg/mL (.)
== END ==
PROVIDERS: Visit Provider Orthopaedic Surgery
DX: Z01.818 Encounter for other preprocedural examination (principal); M86.9 Osteomyelitis, unspecified
CPT/HCPCS: 36415; 80053; 82040; 82180; 82607; 82652; 82746; 83540; 83550; 84630; 85025; 85610; 85651; 85730; 86140; 86850; U0003

== ENCOUNTER 2021-03-31 06:15 | Inpatient (IN) | payer MEDICAID, SELFPAY ==
[2021-03-31] VITALS (24 sets, daily range): BP systolic 88–171; BP diastolic 52–106; PULSE 87–115; RESP 16–20; TEMP 36.2–37.7; O2SAT 92–100; BMI 32.5; BMI 32.8
--- NOTE | 2021-03-31 06:45 | SUR.PREOP ---
[id number] with Eri at [facility] regarding pts medications and time taken
[2021-03-31 06:53] LABS: POC Glucose,Bedside 119 (70-110)
--- NOTE | 2021-03-31 06:57 | P.PN_ITS ---
[facility] Anesthesia Checklist - Patient Identification Patient Identification: Arm Band - Structural Data Admitted From: Home Planned Operative Procedure/s: BKA Consent for Planned Operative Procedure(s) Verified: Yes - NPO Status Verified Time NPO: 00:00 - Additional verifications Anesthesia Reactions: No Hx Blood Transfusions: Yes Blood Transfusion Reaction: No - Airway Assessment C-Spine Mobility Assessed: Yes TMJ Mobility Assessed: Yes Dentition: Good Dentition - Neurological Assessment Level of Consciousness: Awake, Alert Hx Seizures: No Numbness or tingling in extremities: No - Anesthesia Plan Anesthesia Risk discussed: Yes Anesthesia Plan: Verified ASA Class: III Anesthesia Type: General [facility] History I have reviewed the patient's past medical history: Yes Medical History: Reports:: Atherosclerotic Heart Disease, Congestive Heart Failure, Coronary Artery Disease, Diabetes Mellitus Type 2, Hyperlipidemia, Hypertension, MRSA, Myocardial Infarction, Peripheral Artery Disease, Peripheral Vascular Disease Denies:: Cancer, Diabetes Mellitus Type 1, Internal Pacemaker, Seizures *Have you ever received a pneumonia vaccine?: Yes *Have you received a flu vaccine this season?: No Other Medical History: Reports: Anemia. Denies: Blood Transfusion Reaction Anesthesia experience/problems:: None Laterality Cases: Bilateral: Other Other Surgeries: Yes: Angiogram, CABG, Cardiac Catheterization, Coronary Stent, Open Heart Surgery. No: Pacemaker Amputation: Yes (RT AKA 10/12/19) Fractures: No - *Social History Smoking Status: Former smoker Tobacco Type: cigarettes # Packs/Day (cigarettes): 0 Alcohol Intake: never Substance Use Type: denies use *Occupational Status:: disabled Housing: prison Household Members: other *Travel in the last 8 weeks: None Family Hx:: Unable to obtain
--- NOTE | 2021-03-31 07:06 | XR_ITS ---
PROCEDURE INFORMATION: Exam: XR Chest Exam date and time: 03/31/2021 7:06 AM Age: 60 years old Clinical indication: Screening exam; Pre-operative exam; Other: Ortho; Prior surgery; Surgery date: 6+ months; Patient HX: Nonsmoker, HX of cabg 6 years ago; Additional info: Pre-op order for surgery TECHNIQUE: Imaging protocol: XR of the chest. Views: 1 view. COMPARISON: CR XR CHEST PORTABLE PICC PLAC 02/10/2021 10:54 AM FINDINGS: Lungs: There is no consolidation. Pleural spaces: No pleural effusion or pneumothorax. Heart/Mediastinum: The cardiac silhouette is at the upper limits of normal in size. I do not see overt congestive heart failure. Status post CABG. Bones/joints: There is mild degenerative spurring at the articulation of the 1st ribs and manubrium bilaterally. No acute osseous abnormality is seen. IMPRESSION: No acute cardiopulmonary process identified.
--- NOTE | 2021-03-31 07:24 | ECG_ITS ---
APPROVED REPORT Exam: Resting ECG HR:84 bpm ECG Measurements Heart Rate 84 AXES NJ 160 P 54 QRSd 98 QRS -21 QT 408 T 164 QTc 482 Conclusion Normal sinus rhythm Possible Left atrial enlargement Left ventricular hypertrophy with repolarization abnormality Prolonged QT Abnormal ECG Electronically signed by : Sanjeev Avila, 03/31/2021 17:09:30
--- NOTE | 2021-03-31 10:00 | HMH.ANESI ---
[facility] Anesthesia Record Part I Intake, IV Amount: 1,000 Estimated blood loss (mL): 300 Urine output (mL): 0 Blood Pressure: 88/52 SaO2: 96 Pulse Rate: 95 Respiratory Rate: 20 Temperature: 97.5 F Patient is:: Drowsy, Oral/Nasal airway Stable to PACU at:: 09:57
[2021-03-31 10:25] LABS: POC Glucose,Bedside 79 (70-110)
--- NOTE | 2021-03-31 10:39 | HMH.ORTHHP ---
*Admission Date: 03/31/21 *Reason for consult:: s/p L BKA *History of present illness: 60-year-old gentleman with a history of chronic diabetic foot wounds and prior amputations. He has been treated by Dr. Panda for this, and a timeline of his prior treatment and surgical history is detailed below. Most recently he underwent irrigation and debridement of the left foot on 02/09/2021. He has been diagnosed with osteomyelitis and further limb salvage given the low chance of success; below-knee amputation is recommended. He is on IV antibiotics, specifically vancomycin and cefepime. Additionally, he is taking Xarelto and aspirin. Surgeries: 02/09/21: s/p left foot incision and drainage, wound debridement 09/24/20: s/p left partial foot amputation (Lisfranc amp, midtarsal disarticulation), I&D, bone biospy, navicular bone cyst curettage, application of graft and antibiotic beads, application of MICHELLE drain 02/27/20, S/p: left foot irrigation and debridement, transmetatarsal amputation, advancement skin flap, application of MICHELLE drain 02/09/21, Intra-op specimens left foot: Cultures: Left foot wound culture: Proteus mirabilis Left talus bone culture: Morganella morganii, Staph aureus (MRSA) Left ankle bone culture: Proteus mirabilis Left medial foot bone culture: Actinobacillus lignieresii, Proteus mirabilis Pathology: Left talus bone path: Fragments of benign bone and cartilage with spotty chronic inflammation. Negative for signs of acute inflammation. Left ankle bone path: Benign fibrovascular tissue with focal acute inflammatory infiltrate. Focal acute osteomyelitis. Negative for new plasia/malignancy. Left medial foot bone path: Fragments of acutely inflamed fibromuscular tissue. Benign bone and cartilage, negative for significant acute inflammation. Labs: 01/15/21: wbc 5.8, esr 117, crp 7.3, glucose 310, Ha1c 9.7%, gfr 69, creatinine 1.1, d-dimer 0.92, venous doppler (-) DVT 02/11/21: wbc 7.8, esr 121, crp 148.3, glucose 126, Ha1c 9.7%, gfr 69, creatinine 1.1, vanco trough 19.0 I discussed the patient's condition with him at length, including loss of soft tissue, chronic osteomyelitis resistant to IV antibiotics, history of DM and PAD, and I recommended BKA. This was additionally the recommendation of Dr. Brown and Dr. Panda. We discussed the risks and benefits of surgery, and the patient discussed the procedure with his PCP; he elected to proceed with the surgery. L BKA was performed this morning without complication. Tourniquet was not inflated. EBL 300cc. Leg specimen sent for pathology. [facility] History I have reviewed the patient's past medical history: Yes Medical History: Reports:: Atherosclerotic Heart Disease, Congestive Heart Failure, Coronary Artery Disease, Diabetes Mellitus Type 2, Hyperlipidemia, Hypertension, Myocardial Infarction, Peripheral Artery Disease, Peripheral Vascular Disease Denies:: Cancer, Diabetes Mellitus Type 1, Internal Pacemaker, MRSA, Seizures *Have you ever received a pneumonia vaccine?: Yes *Have you received a flu vaccine this season?: Yes Other Medical History: Reports: Anemia. Denies: Blood Transfusion Reaction Anesthesia experience/problems:: None Laterality Cases: Bilateral: Other Other Surgeries: Yes: Angiogram, CABG, Cardiac Catheterization, Coronary Stent, Open Heart Surgery. No: Pacemaker Amputation: Yes (RT AKA 10/12/19) Fractures: No - *Social History Last grade of school completed: Some college Smoking Status: Former smoker Tobacco Type: cigarettes # Packs/Day (cigarettes): 0 Smoking End Date: 03/31/2001 Alcohol Intake: former Substance Use Type: denies use *Occupational Status:: retired Housing: [facility] Household Members: other *Travel in the last 8 weeks: None Family Hx:: Cancer, Diabetes Review of Systems - Review of Systems Review of systems:: pertinent systems reviewed and negative unless documented below Meds Home Medications Medication Instructions Recorded Confirmed
--- NOTE | 2021-03-31 10:39 | HMH.OPNOTE ---
Date of procedure: 03/31/21 Pre-op Diagnosis:: Left lower extremity: 1) chronic osteomyelitis of foot/ankle 2) wound dehiscence s/p Lisfranc amputation Post-op Diagnosis:: same Procedure performed:: L below knee amputation (BKA) Surgeon:: Sally Goncalves MD Windows Application Developer(s):: Sandra Foss BSW:: Other (Madalyn Romo) Anesthesia: GETA Estimated blood loss (mL): 300 Clinical Note:: 60-year-old gentleman with a history of chronic diabetic foot wounds and prior amputations. He has been treated by Dr. Panda for this, and a timeline of his prior treatment and surgical history is detailed below. Most recently he underwent irrigation and debridement of the left foot on 02/09/2021. He has been diagnosed with osteomyelitis and further limb salvage given the low chance of success; below-knee amputation is recommended. He is on IV antibiotics, specifically vancomycin and cefepime. Additionally, he is taking Xarelto and aspirin. I discussed the patient's condition with him at length, including loss of soft tissue, chronic osteomyelitis resistant to IV antibiotics, history of DM and PAD, and I recommended BKA. This was additionally the recommendation of Dr. Brown and Dr. Panda. We discussed the risks and benefits of surgery, and the patient discussed the procedure with his PCP; he elected to proceed with the surgery. I discussed the risks of surgery with the patient, including but not limited to: bleeding, infection, failure of wound healing, wound dehiscence, phantom limb pain, need for revision amputation, need for blood transfusion, and the risk of heart attack, stroke or even . The patient vocalized understanding of the risk of amputation and provided informed consent for the procedure. Operative findings:: no gross infection seen at amputation site; tissue appeared healthy with good perfusion Operative note:: The patient was identified in preoperative holding and L leg signed by myself. Consent was reviewed with the patient and all questions answered. He was then taken to the OR, where IV antibiotics were infused (vancomycin). The patient was transferred to the OR table and placed in the supine position with all bony prominences well-padded; general anesthesia administered by the BSW. Bandages were removed from the left foot and the left lower extremity prepped and draped in the usual sterile fashion, using a non-sterile tourniquet on the upper thigh. Time out was performed, identifying the correct patient, correct procedure and correct site. I begun the procedure by drawing out the desired lines of incision on the left lower leg using a marking pen. I marked the the level of the planned tibial cut and manuel out anterior and long posterior flaps. Incision was made with a #10 blade, following the predetermined lines of incision. Tourniquet was not inflated. The anterior incision was made transversely across the tibia approximately 14cm distal to the tibial tubercle. Subcutaneous tissue was incised down to the bone and dissection carried out medially and laterally using electrocautery. Care was taken to identify and ligate peroneal, anterior tibial, and posterior tibial neurovascular bundles. The veins and arteries were isolated and doubly ligated with 0 silk ties before they were transected. The nerves were sharply transected with a 10 blade. Once the critical neurovascular bundles were tied off, the remainder of the anterior and lateral compartment musculature was divided with a bovie. Next the soft tissue was cleared off the tibia using a Cortez elevator and the desired level of transection was chosen 2cm proximal to the anterior skin flap edge. Using a 10 blade, the periosteum was incision and reflected back off the bone. An oscillating saw was then used to transect the tibial shaft perpindicular to its long axis; a lap sponge was placed behind the bone to protect the underlying musculature. After the tibia was transected, the fibula was cut as well; the saw was use
--- NOTE | 2021-03-31 11:19 | SW/DCPLANNER ---
PATIENT IS A RESIDENT OF [facility] AND WILL BE RETURNING BACK TO HIS [facility] BED [facility] CARE STAY... PATIENT IS ON A 14 DAY MEDICAID BEDHOLD.. DISPOSITION UNCERTAIN, CM WILL FOLLOW AND ASSIST INDICATED MY MD...
--- NOTE | 2021-03-31 11:40 | HMH.PHACONS ---
- Pharmacy Consult Date: 03/31/21 Time: 11:40 Referring provider: DR. ADEN Reason for Consult:: VANCOMYCIN DOSING FOR POSTOP DOSE. Allergies and ADEs:: Allergies Allergy/AdvReac Type Severity Reaction Status Date / Time No Known Allergies Allergy Verified 03/20/21 14:20 Home Medications:: Home Medications Medication Instructions Recorded Confirmed Type Acetaminophen [Tylenol 500mg 500 mg PO Q4HP PRN 12/05/19 03/31/21 History tablet] Aspirin [Aspirin 81mg chewable 81 mg PO DAILY 12/05/19 03/31/21 History tab] Atorvastatin Calcium [Lipitor 80mg 80 mg PO HS 12/05/19 03/31/21 History Tab] Pantoprazole Sodium [Protonix 40mg 40 mg PO DAILY 12/05/19 03/31/21 History tablet] Venlafaxine HCl [Venlafaxine HCl 75 mg PO DAILY 12/05/19 03/31/21 History ER] hydroCHLOROthiazide 12.5 mg PO DAILY 12/05/19 03/31/21 History [Hydrochlorothiazide] polyethylene glycoL 3350 17 gm PO DAILY 12/05/19 03/31/21 History [Polyethylene Glycol 3350] Rivaroxaban [Xarelto 2.5mg Tab*] 2.5 mg PO BID 12/31/19 03/31/21 History Multivitamin 1 each PO DAILY 02/26/20 03/31/21 History Promethazine HCl [Phenergan 25mg 25 mg PO Q4-6H PRN 02/26/20 03/31/21 History tablet] cyclobenzaprine 5 mg tablet 5 mg PO TIDP PRN 07/14/20 03/31/21 History carvediloL [Carvedilol 12.5mg Tab] 12.5 mg PO BID 09/24/20 03/31/21 History lisinopriL [Prinivil 20mg Tablet] 20 mg PO BID 09/24/20 03/31/21 History quetiapine 100 mg tablet 100 mg PO HS 10/13/20 03/31/21 History gabapentin 300 mg capsule 300 mg PO TID #90 cap 01/07/21 03/31/21 Rx buspirone 10 mg tablet 10 mg PO BID tab 01/29/21 03/31/21 History fluticasone propionate 50 1 spray INTRANASAL DAILY 01/29/21 03/31/21 History mcg/actuation nasal spray,suspension insulin glargine 100 unit/mL (3 60 unit SQ HS ml 01/29/21 03/31/21 History mL) subcutaneous pen ascorbic acid (vitamin C) 1,000 mg 1 g PO DAILY #120 tab 02/03/21 03/31/21 Rx tablet lactulose 10 gram/15 mL oral 30 ml PO DAILYP PRN ml 02/03/21 03/31/21 History solution Insulin Aspart Prot/Insuln Asp 16 unit SQ BID 02/10/21 03/31/21 History [Novolog Mix 70-30 Vial] Sennosides [Senna] 8.6 mg PO DAILY 02/10/21 03/31/21 History hydrocodone 5 mg-acetaminophen 325 1 tab PO BID PRN #60 tab 03/10/21 03/31/21 Rx mg tablet oxycodone 10 mg tablet 10 mg PO Q4H PRN #120 tab 03/10/21 03/31/21 Rx Cefepime HCl [Maxipime 2gm Vial] 2 gm IV Q12H 03/31/21 03/31/21 History Height: 1.88 m Weight: 115.751 kg Laboratory Results:: Laboratory Results - last 24 hr 03/31/21 06:41: POC Glucose 119 H 03/31/21 10:18: POC Glucose 79 Medical History: Reports:: Atherosclerotic Heart Disease, Congestive Heart Failure, Coronary Artery Disease, Diabetes Mellitus Type 2, Hyperlipidemia, Hypertension, MRSA, Myocardial Infarction, Peripheral Artery Disease, Peripheral Vascular Disease Denies:: Cancer, Diabetes Mellitus Type 1, Internal Pacemaker, Seizures Assessment and Plan - Assessment and plan all Dx Assessment and Plan for all problems:: Age: 60 yo Serum creatinine: 1.3 mg/dL Height: 74.0 Inches Weight (kg): 115.2 Assessment: IBW (kg): 82.20 Dosing wt(kg): 115.2 Estimated Creatinine clearance (ml/min): 71.1 CRCL method: Cockcroft and Gault using ibw(default). Drug selected: Vancomycin Loading dose (mg): 0 Vd (liters): 92.2 (factor used: 0.8 L/kg) Alex (hr-1): 0.063 Half life (hrs): 11.00 Recommended dose: 2250 mg Interval: 18 hrs Infusion time (hrs): 2.0 Predicted peak (mcg/mL): 33.8 Predicted trough (mcg/mL): 12.34 Total body weight is being used for vancomycin dosing. Recommendations: Give Vancomycin 2250 mg q 18 hrs with an expected Cpeak of 33.8 mcg/ml and an expected Ctrough of 12.34 mcg/ml
[2021-03-31 11:55] LABS: POC Glucose,Bedside 128 (70-110)
--- NOTE | 2021-03-31 13:49 | HMH.PTEV ---
Physical Therapy Evaluation Rehab PT IP Evaluation Start: 03/31/21 10:26 Freq: ONCE Status: Active Protocol: Document 03/31/21 13:39 [email or web address] (Rec: 03/31/21 13:48 [email or web address] [id number]) Subjective/History History History This is the initial IP PT evaluation for Easton Hilton. Pt is well known to therapy for extended treatment on LLE wound care prior to BKA. Pt had TMA, and TMA revision I&D prior to BKA to attempt limb salvage. Pt has R AKA - pt was non-ambulatory at [facility] prior to BKA Subjective Subjective Pt reports c/o pain in L stump Rehab PT IP Eval Objective Appearance Patient Behavior Appropriate,Cooperative Patient Orientation Person,Place,Time Difficulty following instructions none Speech Pattern Clear,Appropriate Ambulation Patient Able to Ambulate No Balance Ability to Arise Unable Sitting Balance Steady, safe Dynamic Sitting Balance Ability Good Dynamic Standing Balance Ability Zero Transfers Bed Transfer Ability Independent Chair Transfer Ability Independent Sit to Stand Bed Transfer Ability Total/Dependent (100%) Sit to Stand Chair Transfer Ability Total/Dependent (100%) Rehab PT IP prob,goals,plan Problems Date of Evaluation: 03/31/21 PT IP Problems Transfers,Gait,Self care, Safety Rehab Potential Rehab Potential Fair Equipment Needs Assistive Devices Wheelchair Plan PT Intervention Plan Bed Mobility,Transfers, Therapeutic Exercise PT Plan Frequency BID Duration LOS Discharge Goals Bed Transfer Ability Independent Sit to Stand Chair Transfer Ability Total/Dependent (100%) Discharge Plan PT Discharge Plan Pt is at close to prior level of function prior to BKA - pt was non/ambulatory using wheel chair as transportation, pt would benefit from therapy at SNF to work on sliding transfers to and from wheelchair, commode, bed and chair. G -code Required Yes Eval Complexity Eval Charge Codes 24873 - Moderate Complexity G Codes PT Current Status Self Care PT Current Status Modifier CL-At least 60% b
--- NOTE | 2021-03-31 15:22 | PC.NURSE ---
Pt arrived to the floor via bed accompanied by Baldo Kern, RN and Jayant Hernandez RN.He was alert and oriented. Able to verbalize needs. He repositions self independently. Dressing to left stump was clean, dry and intact. MICHELLE drain in place with approx 10 ml's of bloody drainage. Pt became hypertensive around 1300 (sys 170's-180's). He hadn't had his morning bp meds, morning bp meds administered with drop in bp noted. He required prn pain meds for pain in LL stump. Muscle relaxer administered as well w/relief noted on reassessment. Pt's personal wheelchair is at bedside.
[2021-03-31 18:03] LABS: POC Glucose,Bedside 221 (70-110)
[2021-03-31 23:11] LABS: POC Glucose,Bedside 228 (70-110)
[2021-04-01] VITALS (26 sets, daily range): BP systolic 94–141; BP diastolic 49–92; PULSE 92–111; RESP 14–20; TEMP 36.4–38; O2SAT 92–97; BMI 32.8
--- NOTE | 2021-04-01 04:44 | PC.NURSE ---
Approximately at 2130 while the patient was repositioning the surgical dressing came off. It was reapplied and reinforced. Patient tolerated well with no acute distress noted during this time.
[2021-04-01 05:55] LABS: POC Glucose,Bedside 197 (70-110)
--- NOTE | 2021-04-01 07:42 | P.CONPHA_ITS ---
[facility] Pharmacy VTE Monitoring - Patient Demographics Admission date: 03/31/21 Report Date: 04/01/21 Time: 07:42 Allergies/Adverse Reactions: Patient Allergies No Known Allergies Allergy (Verified 03/20/21 14:20) Height: 1.88 m Weight: 115.921 kg Patient Problems: Current Active Problems Diabetes mellitus with diabetic neuropathy (Acute) Chronic kidney disease, unspecified (Acute) Acquired absence of right leg above knee (Acute) Edema of left lower extremity (Acute) Partial nontraumatic amputation of left foot (Acute) Chronic osteomyelitis of left foot (Acute) Postoperative wound dehiscence (Acute) Anemia (Acute) - VTE Risk Was VTE Risk Assessment Performed: Yes VTE Score: 10 VTE Risk Level: Moderate Risk Clinical Trial Participant: No - Prophylaxis VTE Prophylaxis Ordered?: Yes Types of VTE Prophylaxis: IPCS Knee High
[2021-04-01 07:48] LABS: Basophils % 0.3 % (0.1-2.0); Eosinophils % 0.7 % (0.1-12.0); Lymphocytes # 1.7 K/mm3 (0.7-4.5); Lymphocytes % 31.4 % (10-50); Mean Corpuscular HGB Conc 31.9 g/dL (31.8-35.4); Mean Corpuscular Hemoglobin 28.6 pg (27.0-31.2); Mean Corpuscular Volume 89.8 fl (80-94); Monocytes # 0.7 K/mm3 (0.1-1.0); Monocytes % 12.1 % (1.7-9.3); Neutrophils # 3.1 K/mm3 (1.8-7.8); Neutrophils % 55.4 % (37.0-80.0); Platelet Count 266 K/mm3 (142-424); Red Blood Count 2.66 M/mm3 (4.60-6.20); Red Cell Distribution Width 15.6 % (11.5-17.5); White Blood Count 5.5 K/mm3 (4.8-10.8)
[2021-04-01 07:54] LABS: Anion Gap 9.9 mEq/L (5-15); Blood Urea Nitrogen 24 mg/dl (9-20); Carbon Dioxide 28 mmol/L (22.0-30.0); Chloride 103 mmol/L (98-107); Creatinine Clearance Estimated 87 mL/min (50-200); Estimated Glomerular Filt Rate 48 ml/min (>60); GFR (African American) 58 ML/MIN (>60); Glucose 167 mg/dl (74-100); Potassium 3.9 mmoL/L (3.5-5.1); Sodium 137 mmol/L (136-145)
[2021-04-01 08:00] LABS: Calcium 8.3 mg/dl (8.4-10.2)
[2021-04-01 08:10] LABS: Hematocrit 23.9 % (42.0-52.0); Hemoglobin 7.6 g/dL (14.1-18.0)
--- NOTE | 2021-04-01 08:57 | HMH.CONS ---
*Admission Date: 03/31/21 *Reason for consult:: CAD, HTN, DM *History of present illness: 60-year-old gentleman with a history of chronic diabetic foot wounds and prior amputations. He has been treated by Dr. Panda for this, and a timeline of his prior treatment and surgical history is detailed below. Most recently he underwent irrigation and debridement of the left foot on 02/09/2021. He has been diagnosed with osteomyelitis and further limb salvage given the low chance of success; below-knee amputation is recommended. He is on IV antibiotics, specifically vancomycin and cefepime. Additionally, he is taking Xarelto and aspirin. Surgeries: 02/09/21: s/p left foot incision and drainage, wound debridement 09/24/20: s/p left partial foot amputation (Lisfranc amp, midtarsal disarticulation), I&D, bone biospy, navicular bone cyst curettage, application of graft and antibiotic beads, application of MICHELLE drain 02/27/20, S/p: left foot irrigation and debridement, transmetatarsal amputation, advancement skin flap, application of MICHELLE drain 02/09/21, Intra-op specimens left foot: Cultures: Left foot wound culture: Proteus mirabilis Left talus bone culture: Morganella morganii, Staph aureus (MRSA) Left ankle bone culture: Proteus mirabilis Left medial foot bone culture: Actinobacillus lignieresii, Proteus mirabilis Pathology: Left talus bone path: Fragments of benign bone and cartilage with spotty chronic inflammation. Negative for signs of acute inflammation. Left ankle bone path: Benign fibrovascular tissue with focal acute inflammatory infiltrate. Focal acute osteomyelitis. Negative for new plasia/malignancy. Left medial foot bone path: Fragments of acutely inflamed fibromuscular tissue. Benign bone and cartilage, negative for significant acute inflammation. Labs: 01/15/21: wbc 5.8, esr 117, crp 7.3, glucose 310, Ha1c 9.7%, gfr 69, creatinine 1.1, d-dimer 0.92, venous doppler (-) DVT 02/11/21: wbc 7.8, esr 121, crp 148.3, glucose 126, Ha1c 9.7%, gfr 69, creatinine 1.1, vanco trough 19.0 I discussed the patient's condition with him at length, including loss of soft tissue, chronic osteomyelitis resistant to IV antibiotics, history of DM and PAD, and I recommended BKA. This was additionally the recommendation of Dr. Brown and Dr. Panda. We discussed the risks and benefits of surgery, and the patient discussed the procedure with his PCP; he elected to proceed with the surgery. L BKA was performed this morning without complication. Tourniquet was not inflated. EBL 300cc. Leg specimen sent for pathology. 60-year-old male patient referred to us from [facility], he is a very familiar patient to us he is currently residing in [facility] and is seen on monthly rounds for CAD, GERD, hypertension, diabetes, and all other concerns. He is currently resting in bed he denies any kind of respiratory distress or chest pain at moment. He reports he is pain is at a tolerable level and is requesting to be [facility] to [facility]. Explained to patient he may be discharged home tomorrow or day after but definitely not today, hemoglobin is 7.6 will order 2 units of packed red blood cells. [facility] History I have reviewed the patient's past medical history: Yes Medical History: Reports:: Atherosclerotic Heart Disease, Congestive Heart Failure, Coronary Artery Disease, Diabetes Mellitus Type 2, Hyperlipidemia, Hypertension, MRSA, Myocardial Infarction, Peripheral Artery Disease, Peripheral Vascular Disease Denies:: Cancer, Diabetes Mellitus Type 1, Internal Pacemaker, Seizures *Have you ever received a pneumonia vaccine?: Yes *Have you received a flu vaccine this season?: Yes Other Medical History: Reports: Anemia. Denies: Blood Transfusion Reaction Anesthesia experience/problems:: None Laterality Cases: Bilateral: Other Other Surgeries: Yes: Angiogram, CABG, Cardiac Catheterization, Coronary Stent, Open Heart Surgery. No: Pacemaker Amputation: Yes (RT AKA 1
--- NOTE | 2021-04-01 09:29 | HMH.ANESII ---
[facility] Anesthesia Record Part II Discharge Time: 10:37 Destination: Medical Surgical Department PACU nurse assessment reviewed?: Yes Patient Condition:: Good Anesthesia Complications:: None Swallowing reflex intact?: Yes Cyanosis?: No Blood Pressure: 123/92 Pulse Rate: 105 Temperature: 97.6 F Mental Status: Alert & Oriented Pain level:: 0 Nausea and/or vomitting:: None Intake, IV Amount: 0
--- NOTE | 2021-04-01 09:42 | PC.NURSE ---
MICHELLE drain emptied, 10 mls of bloody drainage
--- NOTE | 2021-04-01 10:24 | HMH.ORTHPN ---
Subjective Date: 04/01/21 Time: 10:00 Principal diagnosis: s/p L BKA Interval history: The patient is doing well this morning though he was uncomfortable overnight and pulled all of his dressings off. The dressings/splint were reapplied but splint remains uncomfortable. Drain is reported to have had 10cc output overnight; no documentation of output. Hgb dropped to 7.6 overnight; transfusion ordered this morning. PN: Obj Ex Vital signs: Temp Pulse Resp BP Pulse Ox 97.6 F 105 H 18 123/92 H 94 L 04/01/21 09:30 04/01/21 09:30 04/01/21 08:00 04/01/21 09:30 04/01/21 08:00 - Constitutional no acute distress - Routine HEENT Exam Head: Present: normocephalic Eye: Present: EOMI ENT: Present: mucous membranes moist - Routine Neck Exam Present: supple, trachea midline - Routine Respiratory Exam Absent: respiratory distress - Routine Cardiovascular Exam Present: RRR - Routine Abdominal Exam Present: soft. Absent: tenderness - Routine Extremities Exam Comments: L leg dressings/splint removed L BKA incision c/d/i, no drainage, no erythema; sutures intact MICHELLE drain pulled intact skin pink, warm with brisk capillary refill - Routine Skin Exam Present: warm - Routine Neurological Exam Present: alert, oriented X3, moving all extremities, normal tone, vision grossly intact, hearing grossly intact, normal speech. Absent: sensory deficit, motor deficit, altered mental status - Routine Psychiatric Exam Present: normal affect Progress Note: A&P (1) Acquired absence of right leg above knee Status: Acute (2) Anemia Status: Acute (3) Chronic kidney disease, unspecified Status: Acute (4) Chronic osteomyelitis of left foot Status: Acute (5) Diabetes mellitus with diabetic neuropathy Status: Acute (6) Edema of left lower extremity Status: Acute (7) Partial nontraumatic amputation of left foot Status: Acute (8) Postoperative wound dehiscence Status: Acute Assessment and Plan for All Diagnoses:: 60yo M POD 1 s/p L BKA for chronic osteomyelitis; h/o chronic diabetic foot ulcers and prior TMA --> Lisfranc amp. Most recent cultures in January 2021 = proteus, morganella, actinobacillus, MRSA. -- transfuse today, check post-transfusion H/H -- change dressings once daily; elevate limb on pillows at all times -- diabetic diet; accuchecks/SSI -- SCD; can be placed on upper extremity -- encourage IS 10x/hr while awake -- continue home meds; Dr. Evans on consult for medical management -- continue IV antibiotics; vancomycin to be dosed by pharmacy -- will follow serial WBC, ESR, CRP weekly during recovery -- PT to eval/treat; edema control, mobilization -- dispo planning: back to SNF once medically appropriate, possibly tomorrow
--- NOTE | 2021-04-01 11:12 | HMH.PHAINT ---
USED LIST FROM LONG TERM TO VERIFY HOME MEDICATIONS
[2021-04-01 11:42] LABS: POC Glucose,Bedside 200 (70-110)
--- NOTE | 2021-04-01 12:52 | PC.NURSE ---
Pt is alert and oriented x4. Lungs are clear, bowel sounds active x4. Dressing to left stump changed per Dr Goncalves this am. MICHELLE drain removed at that time. 2 units of PRBC's ordered to be transfused. First unit started and transfusing at this time. Pt noted to have a low grade fever at start (100.4), Dr Evans's office notified. Jayant Handy RN reported back to continue with transfusion. No change since morning assessment.
[2021-04-01 15:23] LABS: POC Glucose,Bedside 234 (70-110)
[2021-04-01 17:49] LABS: Hematocrit 28.6 % (42.0-52.0)
[2021-04-01 17:50] LABS: Hemoglobin 9.2 g/dL (14.1-18.0)
[2021-04-01 20:22] LABS: POC Glucose,Bedside 238 (70-110)
[2021-04-01 21:38] LABS: POC Glucose,Bedside 253 (70-110)
--- NOTE | 2021-04-01 23:35 | PC.NURSE ---
pt is alert and oriented X4, and refused CRE swab
[2021-04-02 03:21] VITALS: BP 117/71; PULSE 97; RESP 16; TEMP 37.2; O2SAT 91
[2021-04-02 04:57] VITALS: BMI 33.2
[2021-04-02 05:51] LABS: POC Glucose,Bedside 184 (70-110)
--- NOTE | 2021-04-02 06:18 | PC.NURSE ---
shift summary pts lung sounds are clear with sats maintained 91% or above on room air, with a rate rangiong from 16-18. pt is alert and oriented X4. pt complained of pain twice during this shift which was relieved with pain meds. pt uses a bedside urinal urine is clear and yellow in color. pt denies any nausea, vomiting, or diarrhea. pts dressing are still in place clean, dry, and intact.
[2021-04-02 07:31] VITALS: BP 144/75; PULSE 102; RESP 19; TEMP 38.3; O2SAT 93
[2021-04-02 07:32] LABS: Basophils % 0.4 % (0.1-2.0); Eosinophils # 0.1 K/mm3 (0.0-0.4); Eosinophils % 0.8 % (0.1-12.0); Hematocrit 26.1 % (42.0-52.0); Hemoglobin 8.6 g/dL (14.1-18.0); Lymphocytes # 2.2 K/mm3 (0.7-4.5); Lymphocytes % 33.1 % (10-50); Mean Corpuscular Hemoglobin 29.1 pg (27.0-31.2); Mean Corpuscular Volume 88.4 fl (80-94); Mean Platelet Volume 12.8 fl (7.4-10.4); Monocytes # 0.9 K/mm3 (0.1-1.0); Neutrophils # 3.4 K/mm3 (1.8-7.8); Neutrophils % 51.6 % (37.0-80.0); Platelet Count 51 K/mm3 (142-424); Red Blood Count 2.96 M/mm3 (4.60-6.20); Red Cell Distribution Width 15.3 % (11.5-17.5); White Blood Count 6.6 K/mm3 (4.8-10.8)
--- NOTE | 2021-04-02 08:10 | XR_ITS ---
PROCEDURE: XR CHEST PORTABLE CLINICAL HISTORY: SOA COMPARISON: CR XR CHEST PORTABLE from 02/09/2021 CR XR CHEST PORTABLE PICC PLAC from 02/10/2021 CR XR CHEST PORTABLE from 03/31/2021 FINDINGS: There has been a prior median sternotomy. There is mild cardiomegaly without failure. Atelectatic changes are present in the left lower lung zone medially and in the right lung base. Upper lobes are clear. No acute bony abnormalities. IMPRESSION: Bilateral atelectasis slightly increased in the left lower lung zone and new in the right lung base. Dictated by: Kelvin Peterson MD 04/02/2021 09:53 Kelvin Peterson MD in [facility] 04/02/2021 09:53
[2021-04-02 08:46] LABS: Chloride 104 mmol/L (98-107); Potassium 3.8 mmoL/L (3.5-5.1); Sodium 136 mmol/L (136-145)
[2021-04-02 08:49] LABS: Anion Gap 12.8 mEq/L (5-15); Blood Urea Nitrogen 29 mg/dl (9-20); Calcium 8.5 mg/dl (8.4-10.2); Carbon Dioxide 23 mmol/L (22.0-30.0); Creatinine Clearance Estimated 78 mL/min (50-200); Estimated Glomerular Filt Rate 41 ml/min (>60); GFR (African American) 50 ML/MIN (>60); Glucose 189 mg/dl (74-100)
--- NOTE | 2021-04-02 08:53 | SW/DCPLANNER ---
The plan is for this patient to discharge back to [facility] today. I have spoke with Ángela from [facility] this morning: plan is to return with PICC line for Vanc and Cefepime, daily dressing changes, and patient will need a stump shinker per Dr Goncalves. I will ask [facility] to provide supplies for stump prior to discharge. Ángela has also stated that patient will not need any further COVID testing. Patient will discharge today.
--- NOTE | 2021-04-02 08:55 | HMH.CONFU ---
Internal Medicine - PN: Subj *Date: 04/02/21 *Time: 12:23 Interval history: 60-year-old male patient sitting up in bed denies any respiratory distress, chest pain, or surgical pain at present. He reports he had a good night is feeling well hemoglobin was 9.2 today post infusion of 2 units packed red blood cells. He is requesting to be discharged back to [facility], reports he is feeling better. Discussed need for PICC line while at detention for IV antibiotics he is agreeable to this. Exam Vital signs and Labs for Last 24 Hours: Temp Pulse Resp BP Pulse Ox 100.9 F H 102 H 19 144/75 H 93 L 04/02/21 07:31 04/02/21 07:31 04/02/21 07:31 04/02/21 07:31 04/02/21 07:31 Laboratory Results - last 24 hr 04/01/21 08:00: Blood Type TNP, Antibody Screen TNP, Crossmatch (AHG) See Detail 04/01/21 11:21: POC Glucose 200 H 04/01/21 14:29: POC Glucose 234 H 04/01/21 17:32: Hgb 9.2 L D, Hct 28.6 L 04/01/21 20:10: POC Glucose 238 H 04/01/21 21:30: POC Glucose 253 H 04/02/21 05:19: POC Glucose 184 H 04/02/21 07:01: WBC 6.6, RBC 2.96 L, Hgb 8.6 L, Hct 26.1 L, MCV 88.4, MCH 29.1, MCHC 33.0, RDW 15.3, Plt Count 51 L D, MPV 12.8 H, Neut % (Auto) 51.6, Lymph % (Auto) 33.1, Duval % (Auto) 14.0 H, Eos % (Auto) 0.8, Baso % (Auto) 0.4, Neut # (Auto) 3.4, Lymph # (Auto) 2.2, Duval # (Auto) 0.9, Eos # (Auto) 0.1, Baso # (Auto) 0.0 04/02/21 08:32: Sodium 136, Potassium 3.8, Chloride 104 I & O for Last 24 hours: Intake & Output 05/03/31/21 04/01/21 04/02/21 23:59 23:59 23:59 23:59 Intake Total 1840 / 1840 1551 / 1551 720 / 720 Output Total 610 / 610 835 / 835 0 / 0 Balance 1230 / 1230 716 / 716 720 / 720 Weight 255 lb 3 oz 255 lb 9 oz 259 lb - Constitutional no acute distress - *Routine HEENT Exam Head: Present: normocephalic Eye: Present: EOMI ENT: Present: mucous membranes moist - *Routine Neck Exam Present: trachea midline. Absent: tracheal deviation - *Routine Respiratory Exam Present: CTA bilaterally. Absent: accessory muscle use - *Routine Cardiovascular Exam Present: RRR - *Routine Abdominal Exam Present: soft, normoactive bowel sounds. Absent: tenderness, firm - *Routine Extremities Exam Present: edema, pulses intact. Absent: cyanosis, clubbing - *Routine Skin Exam Present: dry, warm, wounds. Absent: intact, cyanosis Comments: Right AKA wound well-healed Left BKA with dressing clean/dry/intact - *Routine Neurological Exam Present: alert, hearing grossly intact. Absent: motor deficit, pronator drift - Routine Psychiatric Exam Present: normal affect, cooperative. Absent: auditory hallucinations, visual hallucinations Assessment and Plan (1) Acquired absence of right leg above knee Status: Acute Category: Medical Code(s): Z89.611 - Acquired absence of right leg above knee (2) Anemia Status: Acute Qualifiers: Qualified Code(s): D64.9 - Anemia, unspecified Category: Medical Code(s): D64.9 - Anemia, unspecified (3) Chronic kidney disease, unspecified Status: Acute Qualifiers: Qualified Code(s): N18.9 - Chronic kidney disease, unspecified Category: Medical Code(s): N18.9 - Chronic kidney disease, unspecified (4) Chronic osteomyelitis of left foot Status: Acute Category: Medical Code(s): M86.672 - Other chronic osteomyelitis, left ankle and foot (5) Diabetes mellitus with diabetic neuropathy Status: Acute Qualifiers: Qualified Code(s): E11.40 - Type 2 diabetes mellitus with diabetic neuropathy, unspecified; Z79.4 - FPC (current) use of insulin Category: Medical Code(s): E11.40 - Type 2 diabetes mellitus with diabetic neuropathy, unspecified (6) Edema of left lower extremity Status: Acute Category: Medical Code(s): R60.0 - Localized edema (7) Partial nontraumatic amputation of left foot Status: Acute Category: Medical Code(s): Z89.432 - Acquired absence of left foot (8) Postoperative woun
--- NOTE | 2021-04-02 09:30 | XR_ITS ---
PROCEDURE: XR CHEST PORTABLE PICC PLAC CLINICAL HISTORY: Confirm PICC line placement COMPARISON: CR XR CHEST PORTABLE PICC PLAC from 02/10/2021 CR XR CHEST PORTABLE from 03/31/2021 CR XR CHEST PORTABLE from 04/02/2021 FINDINGS: 11:17 a.m.. There has been insertion of left upper extremity PICC line. The line is curled in the left axillary region not in satisfactory position. Atelectatic changes are present in the lower lobes. IMPRESSION: Abnormal position of left upper extremity PICC line Dictated by: Kelvin Peterson MD 04/02/2021 11:53 Kelvin Peterson MD in [facility] 04/02/2021 11:53
--- NOTE | 2021-04-02 11:24 | XR_ITS ---
PROCEDURE: XR CHEST PORTABLE PICC PLAC CLINICAL HISTORY: picc line placement COMPARISON: CR XR CHEST PORTABLE from 03/31/2021 CR XR CHEST PORTABLE from 04/02/2021 CR XR CHEST PORTABLE PICC PLAC from 04/02/2021 FINDINGS: 1131 hours. The left upper extremity PICC line has been reposition. The tip is now in good position in the region of the superior vena cava. Bibasilar atelectatic changes are noted with mild cardiomegaly. IMPRESSION: Left upper extremity PICC line now in good position Dictated by: Kelvin Peterson MD 04/02/2021 11:52 Kevlin Peterson MD in [facility] 04/02/2021 11:52
--- NOTE | 2021-04-02 11:56 | PC.NURSE ---
Dual lumen 5FR PICC inserted to NEW using sterile technique. REF: [id number] LOT:[id number] EXP: 09/13/21
[2021-04-02 12:04] LABS: POC Glucose,Bedside 156 (70-110)
[2021-04-02 12:06] VITALS: TEMP 37.3
--- NOTE | 2021-04-02 12:13 | HMH.ORTHPN ---
Subjective Date: 04/02/21 Time: 11:00 Principal diagnosis: s/p L BKA Interval history: The patient is doing well this morning. Received packed red blood cells yesterday, with rise in hemoglobin >9. The patient feels well and would like to be d/c back to SNF. Pain well-controlled on medication. PN: Obj Ex Vital signs: Temp Pulse Resp BP Pulse Ox 99.1 F 102 H 19 144/75 H 93 L 04/02/21 12:06 04/02/21 07:31 04/02/21 07:31 04/02/21 07:31 04/02/21 07:31 - Constitutional no acute distress - Routine HEENT Exam Head: Present: normocephalic Eye: Present: EOMI ENT: Present: mucous membranes moist - Routine Neck Exam Present: trachea midline - Routine Respiratory Exam Absent: respiratory distress - Routine Cardiovascular Exam Present: RRR - Routine Abdominal Exam Present: soft. Absent: tenderness - Routine Extremities Exam Comments: L leg dressings removed L BKA incision c/d/i, no drainage, no erythema; sutures intact skin pink, warm with brisk capillary refill - Routine Skin Exam Present: warm - Routine Neurological Exam Present: alert, oriented X3, altered mental status, moving all extremities, normal tone, vision grossly intact, hearing grossly intact, normal speech. Absent: sensory deficit, motor deficit Progress Note: A&P (1) Acquired absence of right leg above knee Status: Acute (2) Anemia Status: Acute (3) Chronic kidney disease, unspecified Status: Acute (4) Chronic osteomyelitis of left foot Status: Acute (5) Diabetes mellitus with diabetic neuropathy Status: Acute (6) Edema of left lower extremity Status: Acute (7) Partial nontraumatic amputation of left foot Status: Acute (8) Postoperative wound dehiscence Status: Acute Assessment and Plan for All Diagnoses:: 60yo M POD 2 s/p L BKA for chronic osteomyelitis; h/o chronic diabetic foot ulcers and prior TMA --> Lisfranc amp. Most recent cultures in January 2021 = proteus, morganella, actinobacillus, MRSA. -- change dressings once daily; elevate limb on pillows at all times -- diabetic diet; accuchecks/SSI -- SCD; can be placed on upper extremity -- encourage IS 10x/hr while awake -- continue home meds; Dr. Evans on consult for medical management -- continue IV antibiotics; vancomycin to be dosed by pharmacy -- will follow serial WBC, ESR, CRP weekly during recovery -- PT to eval/treat; edema control, mobilization -- dispo planning: back to SNF today
--- NOTE | 2021-04-02 12:18 | HMH.DCSUM ---
General - General Admission date:: 03/31/21 Discharge date: 04/02/21 HPI HPI: 60-year-old gentleman with a history of chronic diabetic foot wounds and prior amputations. He has been treated by Dr. Panda for this, and a timeline of his prior treatment and surgical history is detailed below. Most recently he underwent irrigation and debridement of the left foot on 02/09/2021. He has been diagnosed with osteomyelitis and further limb salvage given the low chance of success; below-knee amputation is recommended. He is on IV antibiotics, specifically vancomycin and cefepime. Additionally, he is taking Xarelto and aspirin. Surgeries: 02/09/21: s/p left foot incision and drainage, wound debridement 09/24/20: s/p left partial foot amputation (Lisfranc amp, midtarsal disarticulation), I&D, bone biospy, navicular bone cyst curettage, application of graft and antibiotic beads, application of MICHELLE drain 02/27/20, S/p: left foot irrigation and debridement, transmetatarsal amputation, advancement skin flap, application of MICHELLE drain 02/09/21, Intra-op specimens left foot: Cultures: Left foot wound culture: Proteus mirabilis Left talus bone culture: Morganella morganii, Staph aureus (MRSA) Left ankle bone culture: Proteus mirabilis Left medial foot bone culture: Actinobacillus lignieresii, Proteus mirabilis Pathology: Left talus bone path: Fragments of benign bone and cartilage with spotty chronic inflammation. Negative for signs of acute inflammation. Left ankle bone path: Benign fibrovascular tissue with focal acute inflammatory infiltrate. Focal acute osteomyelitis. Negative for new plasia/malignancy. Left medial foot bone path: Fragments of acutely inflamed fibromuscular tissue. Benign bone and cartilage, negative for significant acute inflammation. Labs: 01/15/21: wbc 5.8, esr 117, crp 7.3, glucose 310, Ha1c 9.7%, gfr 69, creatinine 1.1, d-dimer 0.92, venous doppler (-) DVT 02/11/21: wbc 7.8, esr 121, crp 148.3, glucose 126, Ha1c 9.7%, gfr 69, creatinine 1.1, vanco trough 19.0 I discussed the patient's condition with him at length, including loss of soft tissue, chronic osteomyelitis resistant to IV antibiotics, history of DM and PAD, and I recommended BKA. This was additionally the recommendation of Dr. Brown and Dr. Panda. We discussed the risks and benefits of surgery, and the patient discussed the procedure with his PCP; he elected to proceed with the surgery. L BKA was performed this morning without complication. Tourniquet was not inflated. EBL 300cc. Leg specimen sent for pathology. Hospital Course Hospital Course: The patient did well throughout his hospital course. Splint and MICHELLE drain were removed on postoperative day 1. Surgical dressings changed on postop day 1 and wound appears well. Pain was managed with a combination of oral and IV medication. He had no fevers or chills during his stay, vitals remained stable. Hgb dropped <8 on POD 1 and transfusion given; Hgb >9 POD 2. The patient was medically appropriate for discharge on postop day 2 and was discharged back to the custodial in good condition. We will continue IV antibiotics until pathology and cultures have resulted. PICC placed POD 2. Will adjust antibiotic regimen appropriately pending those results. Objective Vital signs: Temp Pulse Resp BP Pulse Ox 99.1 F 102 H 19 144/75 H 93 L 04/02/21 12:06 04/02/21 07:31 04/02/21 07:31 04/02/21 07:31 04/02/21 07:31 no acute distress - *Routine HEENT Exam Head: Present: normocephalic Eye: Present: EOMI ENT: Present: mucous membranes moist - *Routine Neck Exam Present: trachea midline - *Routine Respiratory Exam Absent: respiratory distress - *Routine Cardiovascular Exam Present: RRR - *Routine Abdominal Exam Present: soft. Absent: tenderness - *Routine Rectal Exam Comments: deferred - *Routine Exam Comments: deferred - *Routine Extremities Exam Comments: Yanira leg
--- NOTE | 2021-04-02 14:04 | PC.NURSE ---
Spoke to Deya at [facility], report given on pt.
--- NOTE | 2021-04-02 14:17 | PC.NURSE ---
1415 Discharge education provided to pt, questions encouraged and answered.
== END 2021-04-02 14:25 | DRG 475 ==
LOC: 2ND 12:53
PROVIDERS: Admitting Provider Orthopaedic Surgery; PCP Emergency Medicine; Visit Provider Orthopaedic Surgery
PROC: (CPT 27880; principal; 2021-03-31 07:30)
DX: T87.81 Dehiscence of amputation stump (principal); M86.672 Other chronic osteomyelitis, left ankle and foot; I13.0 Hypertensive heart and chronic kidney disease with heart failure and stage 1 through stage 4 chronic kidney disease, or unspecified chronic kidney disease; E11.40 Type 2 diabetes mellitus with diabetic neuropathy, unspecified; Z79.4 Long term (current) use of insulin; Z79.01 Long term (current) use of anticoagulants; N18.9 Chronic kidney disease, unspecified; E11.22 Type 2 diabetes mellitus with diabetic chronic kidney disease; Z79.82 Long term (current) use of aspirin; Z95.1 Presence of aortocoronary bypass graft; Z87.891 Personal history of nicotine dependence; E11.51 Type 2 diabetes mellitus with diabetic peripheral angiopathy without gangrene; I25.2 Old myocardial infarction; D63.1 Anemia in chronic kidney disease; K21.9 Gastro-esophageal reflux disease without esophagitis; E78.5 Hyperlipidemia, unspecified; E11.69 Type 2 diabetes mellitus with other specified complication; I50.9 Heart failure, unspecified
CPT/HCPCS: 27880; 36415; 36569; 71045; 80048; 80053; 82040; 82180; 82607; 82652; 82746; 82962; 83540; 83550; 84630; 85014; 85018; 85025; 85610; 85651; 85730; 86140; 86850; 93005; 96374; 97162; C1751; J3370; P9016; U0003

== ENCOUNTER → 2021-04-03 12:28 | Outpatient (CLI) | payer MEDICAID, SELFPAY ==
[2021-04-03 13:45] LABS: Anion Gap 10.9 mEq/L (5-15); Blood Urea Nitrogen 22 mg/dl (9-20); Calcium 8.7 mg/dl (8.4-10.2); Carbon Dioxide 25 mmol/L (22.0-30.0); Chloride 105 mmol/L (98-107); Estimated Glomerular Filt Rate 52 ml/min (>60); GFR (African American) 63 ML/MIN (>60); Glucose 97 mg/dl (74-100); Potassium 3.9 mmoL/L (3.5-5.1); Sodium 137 mmol/L (136-145)
[2021-04-03 13:51] LABS: Vancomycin,Trough 10.6 ug/mL (5.0-10.0)
== END ==
PROVIDERS: Visit Provider Emergency Medicine
DX: Z51.81 Encounter for therapeutic drug level monitoring (principal)
CPT/HCPCS: 80048; 80202

== ENCOUNTER → 2021-04-06 20:34 | Outpatient (CLI) | payer MEDICAID, SELFPAY ==
[2021-04-06 21:18] LABS: Chloride 104 mmol/L (98-107); Potassium 3.9 mmoL/L (3.5-5.1); Sodium 138 mmol/L (136-145)
[2021-04-06 21:21] LABS: Anion Gap 10.9 mEq/L (5-15); Blood Urea Nitrogen 14 mg/dl (9-20); Calcium 8.6 mg/dl (8.4-10.2); Carbon Dioxide 27 mmol/L (22.0-30.0); Estimated Glomerular Filt Rate 69 ml/min (>60); GFR (African American) 83 ML/MIN (>60); Glucose 145 mg/dl (74-100)
[2021-04-06 21:39] LABS: Vancomycin,Trough 23.5 ug/mL (5.0-10.0)
== END ==
PROVIDERS: Visit Provider Emergency Medicine
DX: M86.672 Other chronic osteomyelitis, left ankle and foot (principal); Z51.81 Encounter for therapeutic drug level monitoring
CPT/HCPCS: 80048; 80202

== ENCOUNTER 2021-04-07 08:50 | Outpatient (CLI) | payer MEDICAID, SELFPAY ==
[2021-04-07] VITALS (11 sets, daily range): BP systolic 123–146; BP diastolic 47–71; PULSE 67–78; RESP 16–17; TEMP 36.4–36.7; O2SAT 96–100; BMI 42.0
--- NOTE | 2021-04-07 10:30 | PC.NURSE ---
pt PICC line flushes with ease and blood return noted before infusion started. starting infusion at 150ml/hr at this time.
--- NOTE | 2021-04-07 10:35 | PC.NURSE ---
pt tolerating infusion at this time. no complaints reported
--- NOTE | 2021-04-07 11:00 | PC.NURSE ---
infusion rate increased to 175ml/hr. pt is resting with his eyes closed at this time. no complaints reported
--- NOTE | 2021-04-07 11:30 | PC.NURSE ---
infusion rate increased to 200ml/hr at this time. pt tolerated well. no complaints at this time.
--- NOTE | 2021-04-07 12:28 | PC.NURSE ---
infusion completed at this time. no complaints from pt. pt eating lunch and watching TV at this time
--- NOTE | 2021-04-07 12:30 | PC.NURSE ---
1200 infusion rate increased to 250ml/hr by Nisa at this time. pt tolerating well
[2021-04-07 14:41] LABS: Hematocrit 27.7 % (42.0-52.0); Hemoglobin 8.8 g/dL (14.1-18.0)
[2021-04-07 20:34] LABS: Basophils # 0.1 K/mm3 (0-0.2); Basophils % 0.8 % (0.1-2.0); Eosinophils # 0.2 K/mm3 (0.0-0.4); Eosinophils % 3.8 % (0.1-12.0); Hematocrit 27.6 % (42.0-52.0); Hemoglobin 8.9 g/dL (14.1-18.0); Lymphocytes % 33.3 % (10-50); Mean Corpuscular HGB Conc 32.2 g/dL (31.8-35.4); Mean Corpuscular Hemoglobin 28.7 pg (27.0-31.2); Mean Corpuscular Volume 89.3 fl (80-94); Mean Platelet Volume 10.5 fl (7.4-10.4); Monocytes # 0.6 K/mm3 (0.1-1.0); Monocytes % 10.4 % (1.7-9.3); Neutrophils % 51.7 % (37.0-80.0); Platelet Count 201 K/mm3 (142-424); Red Blood Count 3.09 M/mm3 (4.60-6.20); Red Cell Distribution Width 15.2 % (11.5-17.5); White Blood Count 5.9 K/mm3 (4.8-10.8)
[2021-04-07 20:52] LABS: C-Reactive Protein 51.2 mg/L (0-4)
[2021-04-07 21:24] LABS: Erythrocyte Sedimentation Rate > 140 mm/hr (0-20)
== END 2021-04-07 13:35 | disposition home or self-care (01) ==
LOC: INF 08:56
PROVIDERS: PCP Emergency Medicine; Visit Provider Emergency Medicine
DX: D64.9 Anemia, unspecified (principal)
CPT/HCPCS: 36430; 85014; 85018; 85025; 85651; 86140; 86850; P9016

== ENCOUNTER → 2021-04-09 12:17 | Outpatient (CLI) | payer MEDICAID, SELFPAY ==
[2021-04-09 12:50] LABS: Anion Gap 11.7 mEq/L (5-15); Blood Urea Nitrogen 16 mg/dl (9-20); Calcium 8.9 mg/dl (8.4-10.2); Carbon Dioxide 27 mmol/L (22.0-30.0); Chloride 106 mmol/L (98-107); Estimated Glomerular Filt Rate 62 ml/min (>60); GFR (African American) 75 ML/MIN (>60); Glucose 87 mg/dl (74-100); Potassium 4.7 mmoL/L (3.5-5.1); Sodium 140 mmol/L (136-145)
[2021-04-09 13:03] LABS: Vancomycin,Trough 21.2 ug/mL (5.0-10.0)
== END ==
PROVIDERS: Visit Provider Emergency Medicine
DX: Z51.81 Encounter for therapeutic drug level monitoring; I10 Essential (primary) hypertension; M86.172 Other acute osteomyelitis, left ankle and foot
CPT/HCPCS: 80048; 80202

== ENCOUNTER → 2021-04-11 12:15 | Outpatient (CLI) | payer MEDICAID, SELFPAY ==
[2021-04-11 12:51] LABS: Chloride 105 mmol/L (98-107); Sodium 141 mmol/L (136-145)
[2021-04-11 12:52] LABS: Potassium 4.2 mmoL/L (3.5-5.1)
[2021-04-11 12:54] LABS: Blood Urea Nitrogen 20 mg/dl (9-20); Estimated Glomerular Filt Rate 69 ml/min (>60); GFR (African American) 83 ML/MIN (>60)
[2021-04-11 12:55] LABS: Anion Gap 13.2 mEq/L (5-15); Calcium 8.8 mg/dl (8.4-10.2); Carbon Dioxide 27 mmol/L (22.0-30.0); Glucose 122 mg/dl (74-100)
[2021-04-11 12:58] LABS: Vancomycin,Trough 19.6 ug/mL (5.0-10.0)
== END ==
PROVIDERS: Visit Provider Emergency Medicine
DX: M86.9 Osteomyelitis, unspecified (principal); Z51.81 Encounter for therapeutic drug level monitoring
CPT/HCPCS: 80048; 80202

== ENCOUNTER → 2021-04-14 12:05 | Outpatient (CLI) | payer MEDICAID, SELFPAY ==
[2021-04-14 15:08] LABS: Chloride 105 mmol/L (98-107)
[2021-04-14 15:09] LABS: Potassium 4.5 mmoL/L (3.5-5.1); Sodium 140 mmol/L (136-145)
[2021-04-14 15:11] LABS: Blood Urea Nitrogen 17 mg/dl (9-20); Estimated Glomerular Filt Rate 62 ml/min (>60); GFR (African American) 75 ML/MIN (>60)
[2021-04-14 15:12] LABS: Anion Gap 14.5 mEq/L (5-15); Calcium 9.1 mg/dl (8.4-10.2); Carbon Dioxide 25 mmol/L (22.0-30.0); Glucose 149 mg/dl (74-100)
== END ==
PROVIDERS: Visit Provider Emergency Medicine
DX: I10 Essential (primary) hypertension (principal); Z51.81 Encounter for therapeutic drug level monitoring; Z89.512 Acquired absence of left leg below knee
CPT/HCPCS: 80048; 80202

== ENCOUNTER → 2021-04-17 00:12 | Outpatient (CLI) | payer MEDICAID, SELFPAY ==
[2021-04-17 00:54] LABS: Anion Gap 9.3 mEq/L (5-15); Blood Urea Nitrogen 22 mg/dl (9-20); Calcium 9.1 mg/dl (8.4-10.2); Carbon Dioxide 30 mmol/L (22.0-30.0); Chloride 106 mmol/L (98-107); Estimated Glomerular Filt Rate 57 ml/min (>60); GFR (African American) 68 ML/MIN (>60); Glucose 158 mg/dl (74-100); Potassium 4.3 mmoL/L (3.5-5.1); Sodium 141 mmol/L (136-145)
[2021-04-17 00:58] LABS: Vancomycin,Trough 19.5 ug/mL (5.0-10.0)
== END ==
PROVIDERS: Visit Provider Emergency Medicine
DX: Z51.81 Encounter for therapeutic drug level monitoring (principal)
CPT/HCPCS: 80048; 80202

== ENCOUNTER → 2021-04-17 09:38 | Outpatient (CLI) | payer MEDICAID, SELFPAY ==
--- NOTE | 2021-04-17 09:42 | XR_ITS ---
PROCEDURE: XR TIBIA FIBULA LT 2V CLINICAL INDICATION: s/p LT BKA Follow-up surgery COMPARISON: CR XR ANKLE LT 2V from 02/09/2021 CR XR TIBIA FIBULA LT 2V from 03/09/2021 FINDINGS: Status post below the knee amputation. The amputation sites have a slightly jagged margin but are sharp. Vascular calcification is noted. There are mild osteoarthritic changes of the patellofemoral joint. The amputation stump has an unremarkable appearance. IMPRESSION: Status post below the knee amputation as described above. Dictated by: Kelvin Peterson MD 04/17/2021 10:01 Kelvin Peterson MD in [facility] 04/17/2021 10:01
== END ==
PROVIDERS: PCP Emergency Medicine; Visit Provider Orthopaedic Surgery
DX: Z89.512 Acquired absence of left leg below knee (principal)
CPT/HCPCS: 73590

== ENCOUNTER → 2021-04-17 10:17 | Outpatient (CLI) | payer MEDICAID, SELFPAY ==
[2021-04-17 10:52] LABS: Basophils # 0.1 K/mm3 (0-0.2); Eosinophils # 0.3 K/mm3 (0.0-0.4); Eosinophils % 4.7 % (0.1-12.0); Hematocrit 30.5 % (42.0-52.0); Hemoglobin 9.8 g/dL (14.1-18.0); Lymphocytes # 2.1 K/mm3 (0.7-4.5); Lymphocytes % 35.2 % (10-50); Mean Corpuscular HGB Conc 32.1 g/dL (31.8-35.4); Mean Corpuscular Volume 87.3 fl (80-94); Mean Platelet Volume 8.7 fl (7.4-10.4); Monocytes # 0.5 K/mm3 (0.1-1.0); Monocytes % 7.6 % (1.7-9.3); Neutrophils # 3.1 K/mm3 (1.8-7.8); Neutrophils % 51.4 % (37.0-80.0); Platelet Count 488 K/mm3 (142-424); Red Blood Count 3.49 M/mm3 (4.60-6.20); Red Cell Distribution Width 14.8 % (11.5-17.5)
[2021-04-17 11:15] LABS: Erythrocyte Sedimentation Rate > 140 mm/hr (0-20)
[2021-04-17 11:19] LABS: C-Reactive Protein 9.6 mg/L (0-4)
== END ==
PROVIDERS: Visit Provider Orthopaedic Surgery
DX: M86.9 Osteomyelitis, unspecified (principal); Z09 Encounter for follow-up examination after completed treatment for conditions other than malignant neoplasm
CPT/HCPCS: 36415; 85025; 85651; 86140

== ENCOUNTER → 2021-04-20 23:32 | Outpatient (CLI) | payer MEDICAID, SELFPAY ==
[2021-04-21 00:35] LABS: Anion Gap 11.3 mEq/L (5-15); Blood Urea Nitrogen 20 mg/dl (9-20); Calcium 9.3 mg/dl (8.4-10.2); Carbon Dioxide 27 mmol/L (22.0-30.0); Chloride 107 mmol/L (98-107); Estimated Glomerular Filt Rate 69 ml/min (>60); GFR (African American) 83 ML/MIN (>60); Glucose 203 mg/dl (74-100); Potassium 4.3 mmoL/L (3.5-5.1); Sodium 141 mmol/L (136-145)
== END ==
PROVIDERS: Visit Provider Emergency Medicine
DX: I10 Essential (primary) hypertension (principal); Z51.81 Encounter for therapeutic drug level monitoring
CPT/HCPCS: 80048; 80202

== ENCOUNTER → 2021-04-23 11:52 | Outpatient (CLI) | payer MEDICAID, SELFPAY ==
[2021-04-23 13:02] LABS: Chloride 105 mmol/L (98-107); Potassium 4.1 mmoL/L (3.5-5.1); Sodium 140 mmol/L (136-145)
[2021-04-23 13:05] LABS: Anion Gap 10.1 mEq/L (5-15); Blood Urea Nitrogen 17 mg/dl (9-20); Carbon Dioxide 29 mmol/L (22.0-30.0); Estimated Glomerular Filt Rate 69 ml/min (>60); GFR (African American) 83 ML/MIN (>60)
[2021-04-23 13:06] LABS: Calcium 9.2 mg/dl (8.4-10.2); Glucose 122 mg/dl (74-100)
[2021-04-23 14:10] LABS: Vancomycin,Trough 18.7 ug/mL (5.0-10.0)
== END ==
PROVIDERS: Visit Provider Emergency Medicine
DX: E83.52 Hypercalcemia (principal); Z79.2 Long term (current) use of antibiotics; Z51.81 Encounter for therapeutic drug level monitoring
CPT/HCPCS: 80048; 80202

== ENCOUNTER → 2021-04-24 13:16 | Outpatient (CLI) | payer MEDICAID, SELFPAY ==
[2021-04-24 13:41] LABS: Basophils # 0.1 K/mm3 (0-0.2); Eosinophils # 0.6 K/mm3 (0.0-0.4); Eosinophils % 10.4 % (0.1-12.0); Hematocrit 29.3 % (42.0-52.0); Hemoglobin 9.4 g/dL (14.1-18.0); Lymphocytes # 2.2 K/mm3 (0.7-4.5); Lymphocytes % 37.6 % (10-50); Mean Corpuscular HGB Conc 32.3 g/dL (31.8-35.4); Mean Corpuscular Hemoglobin 27.7 pg (27.0-31.2); Mean Corpuscular Volume 85.8 fl (80-94); Mean Platelet Volume 7.5 fl (7.4-10.4); Monocytes # 0.6 K/mm3 (0.1-1.0); Monocytes % 9.5 % (1.7-9.3); Neutrophils # 2.5 K/mm3 (1.8-7.8); Neutrophils % 41.5 % (37.0-80.0); Platelet Count 295 K/mm3 (142-424); Red Blood Count 3.41 M/mm3 (4.60-6.20); Red Cell Distribution Width 15.1 % (11.5-17.5); White Blood Count 5.9 K/mm3 (4.8-10.8)
[2021-04-24 13:54] LABS: C-Reactive Protein 7.1 mg/L (0-4)
[2021-04-24 14:13] LABS: Erythrocyte Sedimentation Rate > 140 mm/hr (0-20)
== END ==
PROVIDERS: Visit Provider Orthopaedic Surgery
DX: Z89.512 Acquired absence of left leg below knee (principal)
CPT/HCPCS: 36415; 85025; 85651; 86140; 87070; 87077; 87081; 87186; 87205

== ENCOUNTER → 2021-04-27 11:35 | Outpatient (CLI) | payer MEDICAID, SELFPAY ==
[2021-04-27 13:37] LABS: Vancomycin,Trough 18.9 ug/mL (5.0-10.0)
[2021-04-27 16:31] LABS: Chloride 103 mmol/L (98-107); Potassium 4.3 mmoL/L (3.5-5.1); Sodium 140 mmol/L (136-145)
[2021-04-27 16:34] LABS: Anion Gap 14.3 mEq/L (5-15); Blood Urea Nitrogen 15 mg/dl (9-20); Calcium 9.3 mg/dl (8.4-10.2); Carbon Dioxide 27 mmol/L (22.0-30.0); Estimated Glomerular Filt Rate 76 ml/min (>60); GFR (African American) 93 ML/MIN (>60); Glucose 150 mg/dl (74-100)
== END ==
PROVIDERS: Visit Provider Emergency Medicine
DX: Z51.81 Encounter for therapeutic drug level monitoring (principal); M86.9 Osteomyelitis, unspecified
CPT/HCPCS: 80048; 80202

== ENCOUNTER → 2021-05-03 23:41 | Outpatient (CLI) | payer MEDICAID, SELFPAY ==
[2021-05-04 03:13] LABS: Anion Gap 10.9 mEq/L (5-15); Blood Urea Nitrogen 19 mg/dl (9-20); Calcium 9.2 mg/dl (8.4-10.2); Carbon Dioxide 29 mmol/L (22.0-30.0); Chloride 103 mmol/L (98-107); Estimated Glomerular Filt Rate 62 ml/min (>60); GFR (African American) 75 ML/MIN (>60); Glucose 184 mg/dl (74-100); Potassium 3.9 mmoL/L (3.5-5.1); Sodium 139 mmol/L (136-145)
[2021-05-04 03:18] LABS: Vancomycin,Trough 18.3 ug/mL (5.0-10.0)
== END ==
PROVIDERS: Visit Provider Emergency Medicine
DX: Z51.81 Encounter for therapeutic drug level monitoring (principal)
CPT/HCPCS: 80048; 80202

== ENCOUNTER → 2021-05-07 09:35 | Outpatient (CLI) | payer MEDICAID, SELFPAY ==
[2021-05-07 09:49] LABS: Basophils # 0.1 K/mm3 (0-0.2); Basophils % 0.9 % (0.1-2.0); Eosinophils # 0.5 K/mm3 (0.0-0.4); Eosinophils % 6.9 % (0.1-12.0); Hematocrit 31.6 % (42.0-52.0); Hemoglobin 10.2 g/dL (14.1-18.0); Lymphocytes # 2.3 K/mm3 (0.7-4.5); Lymphocytes % 32.9 % (10-50); Mean Corpuscular HGB Conc 32.4 g/dL (31.8-35.4); Mean Corpuscular Hemoglobin 28.1 pg (27.0-31.2); Mean Corpuscular Volume 86.7 fl (80-94); Mean Platelet Volume 7.9 fl (7.4-10.4); Monocytes # 0.5 K/mm3 (0.1-1.0); Monocytes % 7.8 % (1.7-9.3); Neutrophils # 3.6 K/mm3 (1.8-7.8); Neutrophils % 51.6 % (37.0-80.0); Platelet Count 250 K/mm3 (142-424); Red Blood Count 3.64 M/mm3 (4.60-6.20); Red Cell Distribution Width 15.8 % (11.5-17.5); White Blood Count 6.9 K/mm3 (4.8-10.8)
[2021-05-07 10:03] LABS: C-Reactive Protein 6.6 mg/L (0-4)
[2021-05-07 10:13] LABS: Erythrocyte Sedimentation Rate 76 mm/hr (0-20)
== END ==
PROVIDERS: Visit Provider Orthopaedic Surgery
DX: Z51.89 Encounter for other specified aftercare (principal); Z89.512 Acquired absence of left leg below knee
CPT/HCPCS: 36415; 85025; 85651; 86140

== ENCOUNTER → 2021-06-05 08:51 | Outpatient (CLI) | payer MEDICAID, SELFPAY ==
--- NOTE | 2021-06-05 08:56 | XR_ITS ---
PROCEDURE: XR TIBIA FIBULA LT 2V CLINICAL INDICATION: s/p LT BKA COMPARISON: CR XR TIBIA FIBULA LT 2V from 03/09/2021 CR XR TIBIA FIBULA LT 2V from 04/17/2021 FINDINGS: Below-knee amputation of the left tibia and fibula noted. Degenerative changes of the knee joint are noted. There is minor periosteal reaction with heterotopic ossification noted at the site of tibial stump, likely postsurgical changes. No radiographic evidence of osteomyelitis is noted although early osteomyelitis cannot be completely excluded on plain radiographs. Vascular calcification is noted. Soft tissues are otherwise unremarkable. IMPRESSION: Below-knee amputation. Minor periosteal reaction with heterotopic ossification, likely postsurgical changes. Dictated by: Elaina Wei 06/05/2021 09:26 Elaina Wei in [facility] 06/05/2021 09:26
[2021-06-05 09:25] LABS: Basophils # 0.1 K/mm3 (0-0.2); Basophils % 0.8 % (0.1-2.0); Eosinophils # 0.2 K/mm3 (0.0-0.4); Eosinophils % 3.3 % (0.1-12.0); Hematocrit 32.1 % (42.0-52.0); Hemoglobin 10.6 g/dL (14.1-18.0); Lymphocytes # 2.4 K/mm3 (0.7-4.5); Lymphocytes % 40.2 % (10-50); Mean Corpuscular Hemoglobin 28.1 pg (27.0-31.2); Mean Platelet Volume 7.8 fl (7.4-10.4); Monocytes # 0.4 K/mm3 (0.1-1.0); Monocytes % 6.4 % (1.7-9.3); Neutrophils # 2.9 K/mm3 (1.8-7.8); Neutrophils % 49.4 % (37.0-80.0); Platelet Count 244 K/mm3 (142-424); Red Blood Count 3.77 M/mm3 (4.60-6.20); Red Cell Distribution Width 15.9 % (11.5-17.5); White Blood Count 5.9 K/mm3 (4.8-10.8)
[2021-06-05 09:37] LABS: C-Reactive Protein 7.9 mg/L (0-4)
[2021-06-05 09:54] LABS: Erythrocyte Sedimentation Rate 83 mm/hr (0-20)
== END ==
PROVIDERS: PCP Emergency Medicine; Visit Provider Orthopaedic Surgery
DX: Z09 Encounter for follow-up examination after completed treatment for conditions other than malignant neoplasm (principal); Z89.512 Acquired absence of left leg below knee
CPT/HCPCS: 36415; 73590; 85025; 85651; 86140

== ENCOUNTER → 2021-07-03 08:22 | Outpatient (CLI) | payer MEDICAID, SELFPAY ==
[2021-07-03 08:43] LABS: Basophils % 0.6 % (0.1-2.0); Eosinophils # 0.2 K/mm3 (0.0-0.4); Hemoglobin 11.8 g/dL (14.1-18.0); Lymphocytes # 2.5 K/mm3 (0.7-4.5); Lymphocytes % 43.2 % (10-50); Mean Corpuscular Hemoglobin 27.4 pg (27.0-31.2); Mean Corpuscular Volume 85.7 fl (80-94); Mean Platelet Volume 8.3 fl (7.4-10.4); Monocytes # 0.4 K/mm3 (0.1-1.0); Monocytes % 7.6 % (1.7-9.3); Neutrophils # 2.6 K/mm3 (1.8-7.8); Neutrophils % 45.6 % (37.0-80.0); Platelet Count 268 K/mm3 (142-424); Red Blood Count 4.31 M/mm3 (4.60-6.20); Red Cell Distribution Width 16.2 % (11.5-17.5); White Blood Count 5.8 K/mm3 (4.8-10.8)
[2021-07-03 08:59] LABS: C-Reactive Protein 6.3 mg/L (0-4)
[2021-07-03 09:07] LABS: Erythrocyte Sedimentation Rate 35 mm/hr (0-20)
== END ==
PROVIDERS: Visit Provider Orthopaedic Surgery
DX: Z09 Encounter for follow-up examination after completed treatment for conditions other than malignant neoplasm (principal); Z89.512 Acquired absence of left leg below knee
CPT/HCPCS: 36415; 85025; 85651; 86140

== ENCOUNTER → 2021-08-19 12:48 | Outpatient (CLI) | payer MEDICAID, SELFPAY ==
[2021-08-19 13:11] LABS: Basophils # 0.1 K/mm3 (0-0.2); Basophils % 0.8 % (0.1-2.0); Eosinophils # 0.2 K/mm3 (0.0-0.4); Eosinophils % 2.4 % (0.1-12.0); Hematocrit 33.4 % (42.0-52.0); Hemoglobin 10.5 g/dL (14.1-18.0); Lymphocytes # 2.8 K/mm3 (0.7-4.5); Lymphocytes % 44.7 % (10-50); Mean Corpuscular HGB Conc 31.5 g/dL (31.8-35.4); Mean Corpuscular Hemoglobin 28.6 pg (27.0-31.2); Mean Corpuscular Volume 90.8 fl (80-94); Mean Platelet Volume 8.2 fl (7.4-10.4); Monocytes # 0.4 K/mm3 (0.1-1.0); Monocytes % 5.9 % (1.7-9.3); Neutrophils # 2.9 K/mm3 (1.8-7.8); Neutrophils % 46.1 % (37.0-80.0); Platelet Count 342 K/mm3 (142-424); Red Blood Count 3.68 M/mm3 (4.60-6.20); Red Cell Distribution Width 15.4 % (11.5-17.5); White Blood Count 6.2 K/mm3 (4.8-10.8)
[2021-08-19 13:31] LABS: C-Reactive Protein 6.9 mg/L (0-4)
[2021-08-19 13:57] LABS: Erythrocyte Sedimentation Rate 127 mm/hr (0-20)
== END ==
PROVIDERS: Visit Provider Orthopaedic Surgery
DX: Z09 Encounter for follow-up examination after completed treatment for conditions other than malignant neoplasm (principal); Z89.512 Acquired absence of left leg below knee
CPT/HCPCS: 36415; 85025; 85651; 86140

== ENCOUNTER → 2021-08-31 13:23 | Outpatient (CLI) | payer MEDICAID, SELFPAY | PROVIDERS: PCP Emergency Medicine; Visit Provider Specialist | DX: G47.33 Obstructive sleep apnea (adult) (pediatric) (principal) | CPT/HCPCS: 94762 ==

== ENCOUNTER → 2021-09-03 09:56 | Outpatient (CLI) | payer MEDICAID, SELFPAY ==
--- NOTE | 2021-09-03 09:56 | MR_ITS ---
PROCEDURE: MR HEAD/BRAIN WO CON CLINICAL INDICATION: History of CVA, new onset of double vision COMPARISON: No exams were available for comparison TECHNIQUE: Routine multiplanar multi echo sequences are performed without gadolinium enhancement. FINDINGS: No midline shift, mass effect, intracranial hemorrhage, hydrocephalus, or acute infarction is evident. The cerebellopontine angle, cerebellum, and brainstem have an unremarkable appearance. There are few nonspecific T2 white matter hyperintensities. The pituitary, optic chiasm, corpus callosum, and craniocervical junction have an unremarkable appearance. No mastoid effusion or sinus air-fluid level. IMPRESSION: No acute intracranial finding. Dictated by: Kelvin Peterson MD 09/04/2021 15:58 Kelvin Peterson MD in [facility] 09/04/2021 15:58
== END ==
PROVIDERS: PCP Emergency Medicine; Visit Provider Specialist
DX: H53.2 Diplopia (principal)
CPT/HCPCS: 70551

== ENCOUNTER → 2021-09-30 12:37 | Outpatient (CLI) | payer MEDICAID, SELFPAY ==
--- NOTE | 2021-09-30 12:47 | XR_ITS ---
PROCEDURE: XR TIBIA FIBULA LT 2V CLINICAL INDICATION: sp LT BKA, sx 03/31/21 COMPARISON: CR XR TIBIA FIBULA LT 2V from 03/09/2021 CR XR TIBIA FIBULA LT 2V from 04/17/2021 CR XR TIBIA FIBULA LT 2V from 06/05/2021 FINDINGS: Status post below the knee amputation. Minimal bony resorption is noted at the anterior distal tibia with some osteosclerosis at this area and with faint soft tissue calcification. Osteoarthritic changes of the knee. Diffuse vascular calcification. Other findings:None. IMPRESSION: Status post BKA. Minimal bony resorption of the anterior distal tibia with rounding off of the margin of the bone and some faint soft tissue calcification at this area. Please correlate with clinical parameters in regard to possible mild chronic osteomyelitis. Continued follow-up suggested. Three-phase bone scan may provide further evaluation if clinical findings are inconclusive. Dictated by: Kelvin Peterson MD 09/30/2021 18:43 Kelvin Peterson MD in [facility] 09/30/2021 18:43
[2021-09-30 13:01] LABS: Basophils # 0.1 K/mm3 (0-0.2); Basophils % 1.1 % (0.1-2.0); Eosinophils # 0.2 K/mm3 (0.0-0.4); Eosinophils % 2.6 % (0.1-12.0); Hematocrit 33.7 % (42.0-52.0); Hemoglobin 10.9 g/dL (14.1-18.0); Lymphocytes # 2.3 K/mm3 (0.7-4.5); Lymphocytes % 39.5 % (10-50); Mean Corpuscular HGB Conc 32.2 g/dL (31.8-35.4); Mean Corpuscular Hemoglobin 28.9 pg (27.0-31.2); Mean Corpuscular Volume 89.7 fl (80-94); Mean Platelet Volume 9.2 fl (7.4-10.4); Monocytes # 0.5 K/mm3 (0.1-1.0); Monocytes % 8.3 % (1.7-9.3); Neutrophils # 2.8 K/mm3 (1.8-7.8); Neutrophils % 48.5 % (37.0-80.0); Platelet Count 311 K/mm3 (142-424); Red Blood Count 3.75 M/mm3 (4.60-6.20); Red Cell Distribution Width 14.9 % (11.5-17.5); White Blood Count 5.9 K/mm3 (4.8-10.8)
[2021-09-30 13:13] LABS: C-Reactive Protein 11.4 mg/L (0-4)
[2021-09-30 13:24] LABS: Erythrocyte Sedimentation Rate 76 mm/hr (0-20)
== END ==
PROVIDERS: Visit Provider Orthopaedic Surgery
DX: Z09 Encounter for follow-up examination after completed treatment for conditions other than malignant neoplasm (principal)
CPT/HCPCS: 36415; 73590; 85025; 85651; 86140

== ENCOUNTER → 2022-01-06 12:13 | Outpatient (CLI) | payer MEDICAID, SELFPAY ==
--- NOTE | 2022-01-06 12:17 | XR_ITS ---
FINAL REPORT CLINICAL HISTORY: sp LT BKA, sx 03/31/[address] Goncalves COMPARISON: September 30, 2021 FINDINGS: Left tibia and fibula series There is no acute fracture or dislocation. There has been below-knee amputation. There is no bony erosion. The joint spaces are intact. There is no metallic foreign body identified. IMPRESSION: No acute fracture. No bony erosion identified. Reviewed, Interpreted and Dictated by Dar Cota MD Transcribed by WANDA Ricardo Authenticated by Dar Cota MD on 01/06/2022 02:01:32 PM [facility]
[2022-01-06 12:51] LABS: Basophils % 0.6 % (0.1-2.0); Eosinophils # 0.2 K/mm3 (0.0-0.4); Eosinophils % 2.6 % (0.1-12.0); Hemoglobin 10.5 g/dL (14.1-18.0); Lymphocytes # 2.4 K/mm3 (0.7-4.5); Lymphocytes % 41.3 % (10-50); Mean Corpuscular HGB Conc 31.8 g/dL (31.8-35.4); Mean Corpuscular Hemoglobin 29.2 pg (27.0-31.2); Mean Corpuscular Volume 91.6 fl (80-94); Mean Platelet Volume 8.7 fl (7.4-10.4); Monocytes # 0.5 K/mm3 (0.1-1.0); Monocytes % 7.9 % (1.7-9.3); Neutrophils # 2.8 K/mm3 (1.8-7.8); Neutrophils % 47.5 % (37.0-80.0); Platelet Count 265 K/mm3 (142-424); Red Blood Count 3.61 M/mm3 (4.60-6.20); Red Cell Distribution Width 15.1 % (11.5-17.5); White Blood Count 5.9 K/mm3 (4.8-10.8)
[2022-01-06 13:03] LABS: C-Reactive Protein 10.5 mg/L (0-4)
[2022-01-06 13:27] LABS: Erythrocyte Sedimentation Rate 65 mm/hr (0-20)
== END ==
PROVIDERS: PCP Emergency Medicine; Visit Provider Orthopaedic Surgery
DX: Z09 Encounter for follow-up examination after completed treatment for conditions other than malignant neoplasm (principal); Z89.512 Acquired absence of left leg below knee
CPT/HCPCS: 36415; 73590; 85025; 85651; 86140

== ENCOUNTER → 2022-03-31 14:25 | Outpatient (CLI) | payer MEDICAID, SELFPAY ==
--- NOTE | 2022-03-31 14:32 | XR_ITS ---
FINAL REPORT CLINICAL HISTORY: stump pain, LT BKA COMPARISON: January 06, 2022 FINDINGS: There is no acute fracture or dislocation. There are postoperative changes from below the knee amputation. There are stable small soft tissue calcifications. There is mild degenerative change in the knee. IMPRESSION: Postoperative and degenerative changes as above. Reviewed, Interpreted and Dictated by Castillo Machado III, MD Transcribed by Adrianna Claire Authenticated by Castillo Machado III, MD on 03/31/2022 03:44:[address] [facility]
== END ==
PROVIDERS: PCP Emergency Medicine; Visit Provider Physician Assistant Surgical
DX: S88.112A Complete traumatic amputation at level between knee and ankle, left lower leg, initial encounter (principal)
CPT/HCPCS: 73590

== ENCOUNTER → 2022-03-31 15:44 | Outpatient (CLI) | payer MEDICAID, SELFPAY ==
[2022-03-31 16:31] LABS: Basophils # 0.1 K/mm3 (0-0.2); Eosinophils # 0.2 K/mm3 (0.0-0.4); Eosinophils % 2.6 % (0.1-12.0); Hematocrit 35.4 % (42.0-52.0); Hemoglobin 11.4 g/dL (14.1-18.0); Lymphocytes # 2.9 K/mm3 (0.7-4.5); Lymphocytes % 50.7 % (10-50); Mean Corpuscular HGB Conc 32.2 g/dL (31.8-35.4); Mean Corpuscular Hemoglobin 30.1 pg (27.0-31.2); Mean Corpuscular Volume 93.4 fl (80-94); Mean Platelet Volume 8.3 fl (7.4-10.4); Monocytes # 0.5 K/mm3 (0.1-1.0); Monocytes % 8.4 % (1.7-9.3); Neutrophils # 2.1 K/mm3 (1.8-7.8); Neutrophils % 37.4 % (37.0-80.0); Platelet Count 315 K/mm3 (142-424); Red Blood Count 3.79 M/mm3 (4.60-6.20); White Blood Count 5.7 K/mm3 (4.8-10.8)
[2022-03-31 16:41] LABS: MANUAL DIFFERENTIAL MANUAL DIFFERENTIAL (MANUAL DIFF)
[2022-03-31 16:45] LABS: C-Reactive Protein 6.7 mg/L (0-4)
[2022-03-31 17:30] LABS: Erythrocyte Sedimentation Rate 66 mm/hr (0-20)
[2022-03-31 18:53] LABS: Eosinophils % 1 % (0-3); Lymphocytes % 56 % (10-50); Monocytes % 8 % (2-9); Neutrophils % 35 % (42-76); RBC Morphology Normal; Total Cells Counted 100
[2022-03-31 18:54] LABS: Platelet Estimate Normal
== END ==
PROVIDERS: Visit Provider Physician Assistant Surgical
DX: S88.112D Complete traumatic amputation at level between knee and ankle, left lower leg, subsequent encounter (principal); M86.9 Osteomyelitis, unspecified
CPT/HCPCS: 36415; 85007; 85025; 85651; 86140

== ENCOUNTER → 2022-04-05 13:20 | Outpatient (CLI) | payer MEDICAID, SELFPAY ==
--- NOTE | 2022-04-05 13:29 | MR_ITS ---
FINAL REPORT TECHNIQUE: Pre and post contrast MR imaging of the left knee was obtained. CLINICAL HISTORY: possible bone infection. open wound on bottom of leg. swelling in leg. prior hx amputation x1yr. pt is a diabetic. 24ml prohance given. FINDINGS: There are postoperative changes from below-knee amputation. Bone marrow signal intensity appears preserved. No convincing abnormal bone marrow enhancement is seen. There is decreased signal intensity along the surgical margin of the tibia and within the subcutaneous tissues distal to the surgical margin. This could represent surgical clips, postoperative material or subcutaneous air. There is diffuse soft tissue edema without convincing loculated fluid collection. A joint effusion is seen at the knee. There is edema within the muscular structures. IMPRESSION: Postoperative changes of below-knee amputation. No convincing osteomyelitis. Cellulitis with probable subcutaneous air. Gangrene not excluded. Reviewed, Interpreted and Dictated by Letty Gaviria MD Transcribed by Jessica Rodriguez Authenticated by Letty Gaviria MD on 04/05/2022 05:05:40 PM [facility]
[2022-04-05 14:16] LABS: Blood Urea Nitrogen 14 mg/dl (9-20); Estimated Glomerular Filt Rate 62 ml/min (>60); GFR (African American) 75 ML/MIN (>60)
== END ==
PROVIDERS: PCP Emergency Medicine; Visit Provider Orthopaedic Surgery
DX: M25.562 Pain in left knee (principal); Z89.512 Acquired absence of left leg below knee
CPT/HCPCS: 36415; 73723; 82565; 84520; A9576

== ENCOUNTER 2022-04-12 02:51 | Emergency (ER) | payer MEDICAID, SELFPAY ==
[2022-04-12 02:38] VITALS: BP 134/78; PULSE 84; RESP 20; TEMP 36.5; O2SAT 96; BMI 48.4
--- NOTE | 2022-04-12 04:07 | XR_ITS ---
PROCEDURE INFORMATION: Exam: XR Chest Exam date and time: 04/12/2022 4:11 AM Age: 61 years old Clinical indication: Cough and other: O2 sats in the 80's TECHNIQUE: Imaging protocol: XR of the chest. Views: 1 view. COMPARISON: CR XR CHEST PORTABLE PICC PLAC 04/02/2021 11:31 AM FINDINGS: Lungs: No focal consolidation. Pleural spaces: No pleural effusion. No pneumothorax. Heart/Mediastinum: Stable cardiomediastinal silhouette. Bones/joints: Median sternotomy. IMPRESSION: No focal consolidation.
[2022-04-12 04:45] LABS: Influenza A, PCR Not Detected (NotDetected); Influenza B, PCR Not Detected (NotDetected)
[2022-04-12 04:47] LABS: Basophils # 0.1 K/mm3 (0-0.2); Basophils % 1.2 % (0.1-2.0); Eosinophils # 0.1 K/mm3 (0.0-0.4); Eosinophils % 1.2 % (0.1-12.0); Hematocrit 34.3 % (42.0-52.0); Hemoglobin 11.1 g/dL (14.1-18.0); Lymphocytes # 2.1 K/mm3 (0.7-4.5); Lymphocytes % 28.4 % (10-50); Mean Corpuscular HGB Conc 32.4 g/dL (31.8-35.4); Mean Corpuscular Volume 92.6 fl (80-94); Mean Platelet Volume 8.5 fl (7.4-10.4); Monocytes # 0.7 K/mm3 (0.1-1.0); Monocytes % 9.8 % (1.7-9.3); Neutrophils # 4.4 K/mm3 (1.8-7.8); Neutrophils % 59.4 % (37.0-80.0); Platelet Count 272 K/mm3 (142-424); Red Cell Distribution Width 14.7 % (11.5-17.5); White Blood Count 7.3 K/mm3 (4.8-10.8)
[2022-04-12 05:07] LABS: Alanine Aminotransferase 20 U/L (12-78); Albumin Level 3.9 g/dl (3.5-5.0); Alkaline Phosphatase 115 U/L (38-126); Anion Gap 12.1 mEq/L (5-15); Aspartate Amino Transferase 40 U/L (17-59); Bilirubin,Total 0.3 mg/dl (0.2-1.3); Blood Urea Nitrogen 20 mg/dl (9-20); Calcium 9.2 mg/dl (8.4-10.2); Carbon Dioxide 32 mmol/L (22.0-30.0); Chloride 99 mmol/L (98-107); Creatinine Clearance Estimated 55 mL/min (50-200); Estimated Glomerular Filt Rate 56 ml/min (>60); GFR (African American) 68 ML/MIN (>60); Globulin 3.9 g/dL (1.3-3.2); Glucose 164 mg/dl (74-100); Potassium 4.1 mmoL/L (3.5-5.1); Sodium 139 mmol/L (136-145); Total Protein,Serum 7.8 g/dl (6.3-8.2)
[2022-04-12 05:10] LABS: C-Reactive Protein 26.6 mg/L (0-4)
[2022-04-12 05:11] LABS: Strep Scrn Group A (Rapid) Negative (Negative)
[2022-04-12 05:13] LABS: Erythrocyte Sedimentation Rate 39 mm/hr (0-20)
[2022-04-12 05:18] LABS: NT Pro Brain Natriuretic Pep. 174 pg/mL (0-125)
[2022-04-12 05:28] LABS: Coronavirus 19, PCR Detected (NotDetected)
--- NOTE | 2022-04-12 07:40 | HMH.EDWEAK ---
ED Disposition Clinical Impression: COVID-19, Below-knee amputation of left lower extremity, History of right below knee amputation Disposition: Home, Self-Care Condition on Discharge: Good Instructions: DI for COVID-19 (Suspected or Confirmed ) Referrals: Provider,Referral, [Primary Care Provider] - - Critical Care Critical Care Time: No Attestation: On 04/12/22, the high probability of a clinically significant, sudden or life threatening deterioration of the following system(s) required my full and direct attention, intervention and personal management. The time I documented below is in addition to time spent performing reported procedures but includes the following listed in this critical care notation. Medical Decision Making - Medical Records Medical records reviewed: Yes: I reviewed the patient's medical records. - [place] Inquiry Pt receiving controlled substance: No Vital Signs: 04/12/22 02:38 Temperature 97.7 F Temperature Source Oral Pulse Rate [Right] 84 Respiratory Rate 20 Blood Pressure [Right Arm] 134/78 Blood Pressure Mean [Right Arm] 96 Blood Pressure Source [Right Arm] Automatic Cuff 02 Sat by Pulse Oximetry 96 Oxygen Delivery Method Room Air - Lab Data Lab results reviewed: Yes: I reviewed the patient's lab results. Lab Results 04/12/22 04:30: ESR 39 H 04/12/22 04:30: C-Reactive Protein 26.6 H, Procalcitonin 0.110 04/12/22 04:30: SARS-CoV-2 (PCR) Detected A, Influenza A Untype (PCR) Not detected, Influenza Type B (PCR) Not detected 04/12/22 04:30: WBC 7.3, RBC 3.70 L, Hgb 11.1 L, Hct 34.3 L, MCV 92.6, MCH 30.0, MCHC 32.4, RDW 14.7, Plt Count 272, MPV 8.5, Neut % (Auto) 59.4, Lymph % (Auto) 28.4, Dane % (Auto) 9.8 H, Eos % (Auto) 1.2, Baso % (Auto) 1.2, Neut # (Auto) 4.4, Lymph # (Auto) 2.1, Dane # (Auto) 0.7, Eos # (Auto) 0.1, Baso # (Auto) 0.1 04/12/22 04:30: Sodium 139, Potassium 4.1, Chloride 99, Carbon Dioxide 32 H, Anion Gap 12.1, BUN 20, Creatinine 1.30 H, Estimated Creat Clear 55, Estimated GFR 56 L, Est GFR ( Amer) 68, Glucose 164 H, Calcium 9.2, Total Bilirubin 0.3, AST 40, ALT 20, Alkaline Phosphatase 115, NT-Pro-B Natriuret Pep 174 H, Total Protein 7.8, Albumin 3.9, Globulin 3.9 H, Albumin/Globulin Ratio 1.0 L 04/12/22 04:30: Group A Strep Rapid Negative 04/12/22 04:30: Troponin I < 0.01 Result diagrams: 04/12/22 04:30 04/12/22 04:30 Orders (Tests/Meds): ED MEDICATIONS Generic Name Dose Route Start Last Admin Trade Name Freq PRN Reason Stop Dose Admin Sodium Chloride 3 ml 04/12/22 04:07 Sodium Chloride 3% 15ml Neb IH 05/12/22 04:06 ONCE PRN INDUCE SPUTUM COLLECTION Discontinued Medications Generic Name Dose Route Start Last Admin Trade Name Freq PRN Reason Stop Dose Admin Sodium Chloride 1,000 mls @ 999 mls/hr 04/12/22 04:15 Sod Chlor 0.9% 1000ml Bag IV 04/12/22 05:15 .[id number] [facility] ORDERS Category Date Time Status Troponin I Q3H Lab 04/12/22 08:05 Received Troponin I Q3H Lab 04/12/22 13:45 Ordered Urinalysis and Microscopic Stat Lab 04/12/22 04:07 Ordered Sputum Culture & Gram Stain Routine Micro 04/12/22 04:06 Ordered Strep Screen Confirmation Stat Micro 04/12/22 04:30 Received - Radiology Data #1 Image(s): Chest Image Reviewed: Yes I have reviewed radiologist's interpretation Preliminary Findings: Normal/NAD - ECG Data Tracing #1 Normal Sinus Rhythm: Yes Ischemic changes: non-specific ST-T wave changes ECG compared to prior tracings: there are no significant changes - JOSE MARIA Score for Non-Stemi Age of Patient: 60-69 years old Heart Rate: 70-89 bpm Systolic Blood Pressure: 120-139 mmhg Serum Creatinine: 1.20-1.59 mg/dl CHF Kill[place] Class: I-No CHF Other Risk Factors: None Non-Stemi Risk Score: 111 Medical Decision Narrative: has stable exam but has covid-19 but no o2 requirements Weakness HPI - General Chief complaint: Weakness Stated complaint: weakness, o2 in 80s Time See
--- NOTE | 2022-04-12 07:47 | ECG_ITS ---
APPROVED REPORT Exam: Resting ECG HR:92 bpm ECG Measurements Heart Rate 92 AXES MD 132 P 30 QRSd 104 QRS 8 QT 372 T 179 QTc 422 Conclusion SINUS RHYTHM LEFT VENTRICULAR HYPERTROPHY AND ST-T CHANGE [VOLTAGE CRITERIA PLUS ST/T ABNORMALITY] POSSIBLE ANTERIOR MYOCARDIAL INFARCTION , OF INDETERMINATE AGE [30 ms Q WAVE IN V3/V4, OR R < 0.2 mV IN V4] ABNORMAL ECG UNCONFIRMED REPORT Electronically signed by : Sanjeev Avila MD 04/12/2022 21:34:23
--- NOTE | 2022-04-12 08:07 | PC.NURSE ---
2nd troponin sent to lab at this time by LauraRN
[2022-04-12 08:16] LABS: Troponin I < 0.01 ng/ml (0.00-0.034)
--- NOTE | 2022-04-12 08:26 | PC.NURSE ---
cassidy slater called report to sesar
--- NOTE | 2022-04-12 08:26 | PC.NURSE ---
Kristina called for transport
[2022-04-12 08:47] LABS: Troponin I < 0.01 ng/ml (0.00-0.034)
[2022-04-12 09:10] VITALS: BP 136/81; PULSE 87; RESP 20; TEMP 36.9; O2SAT 98
== END 2022-04-12 09:12 | disposition home or self-care (01) ==
PROVIDERS: Emergency Provider Emergency Medicine
DX: U07.1 COVID-19 (principal); J02.9 Acute pharyngitis, unspecified; R06.02 Shortness of breath; R53.1 Weakness; D64.9 Anemia, unspecified; I50.9 Heart failure, unspecified; I25.10 Atherosclerotic heart disease of native coronary artery without angina pectoris; I25.2 Old myocardial infarction; I73.9 Peripheral vascular disease, unspecified; E11.40 Type 2 diabetes mellitus with diabetic neuropathy, unspecified; E11.52 Type 2 diabetes mellitus with diabetic peripheral angiopathy with gangrene; G40.909 Epilepsy, unspecified, not intractable, without status epilepticus; F32.A Depression, unspecified; F41.9 Anxiety disorder, unspecified; Z79.01 Long term (current) use of anticoagulants; Z79.1 Long term (current) use of non-steroidal anti-inflammatories (NSAID); Z79.4 Long term (current) use of insulin; Z79.82 Long term (current) use of aspirin; Z79.899 Other long term (current) drug therapy; Z89.611 Acquired absence of right leg above knee; Z89.512 Acquired absence of left leg below knee; Z68.25 Body mass index [BMI] 25.0-25.9, adult; Z86.14 Personal history of Methicillin resistant Staphylococcus aureus infection; Z87.891 Personal history of nicotine dependence; Z80.9 Family history of malignant neoplasm, unspecified; Z83.3 Family history of diabetes mellitus
CPT/HCPCS: 71045; 80053; 83880; 84145; 84484; 85025; 85651; 86140; 87430; 93005; 96360; 99284; C9803; U0003; U0005

== ENCOUNTER → 2022-05-24 11:36 | Outpatient (CLI) | payer MEDICAID, SELFPAY ==
[2022-05-24 11:43] LABS: Adenovirus F 40/41, stool Not Detected (NotDetected); Astrovirus Not Detected (NotDetected); Campylobacter Not Detected (NotDetected); Clostridium Difficile A/B, PCR Not Detected (NotDetected); Cryptosporidium Not Detected (NotDetected); Cyclospora Cayetanesis Not Detected (NotDetected); Entamoeba histolytica Not Detected (NotDetected); Enteroaggregative E coli Not Detected (NotDetected); Enteropathogenic E coli Not Detected (NotDetected); Enterotoxigenic E coli Not Detected (NotDetected); Giardia lamblia Not Detected (NotDetected); Norovirus Not Detected (NotDetected); Plesimonas Shigalloides, PCR Not Detected (NotDetected); Rotavirus A Not Detected (NotDetected); Salmonella, PCR Not Detected (NotDetected); Sapovirus Not Detected (NotDetected); Shiga-like toxin E coli Not Detected (NotDetected); Shigella Enterovasive E coli Not Detected (NotDetected); Vibrio Cholerae Not Detected (NotDetected); Vibrio, PCR Not Detected (NotDetected); Yersinia Entercolitica, PCR Not Detected (NotDetected)
== END ==
PROVIDERS: PCP Emergency Medicine; Visit Provider Emergency Medicine
DX: R19.7 Diarrhea, unspecified (principal)
CPT/HCPCS: 87506

== ENCOUNTER → 2022-05-27 10:04 | Outpatient (CLI) | payer MEDICAID, SELFPAY ==
[2022-05-27 10:24] LABS: Basophils # 0.1 K/mm3 (0-0.2); Basophils % 0.8 % (0.1-2.0); Eosinophils # 0.3 K/mm3 (0.0-0.4); Eosinophils % 3.9 % (0.1-12.0); Hematocrit 37.3 % (42.0-52.0); Hemoglobin 11.4 g/dL (14.1-18.0); Lymphocytes # 2.7 K/mm3 (0.7-4.5); Lymphocytes % 39.2 % (10-50); Mean Corpuscular HGB Conc 30.4 g/dL (31.8-35.4); Mean Corpuscular Hemoglobin 29.4 pg (27.0-31.2); Mean Corpuscular Volume 96.6 fl (80-94); Mean Platelet Volume 8.3 fl (7.4-10.4); Monocytes # 0.8 K/mm3 (0.1-1.0); Neutrophils # 3.2 K/mm3 (1.8-7.8); Neutrophils % 45.1 % (37.0-80.0); Platelet Count 397 K/mm3 (142-424); Red Blood Count 3.86 M/mm3 (4.60-6.20)
[2022-05-27 10:37] LABS: C-Reactive Protein 7.8 mg/L (0-4)
[2022-05-27 10:57] LABS: Erythrocyte Sedimentation Rate 91 mm/hr (0-20)
== END ==
PROVIDERS: PCP Emergency Medicine; Visit Provider Physician Assistant Surgical
DX: M86.9 Osteomyelitis, unspecified (principal); M25.562 Pain in left knee; Z89.512 Acquired absence of left leg below knee
CPT/HCPCS: 36415; 85025; 85651; 86140

== ENCOUNTER → 2023-02-17 16:16 | Outpatient (CLI) | payer MEDICAID, SELFPAY | PROVIDERS: PCP Emergency Medicine; Visit Provider Emergency Medicine | DX: L02.212 Cutaneous abscess of back [any part, except buttock and flank] (principal); B95.7 Other staphylococcus as the cause of diseases classified elsewhere | CPT/HCPCS: 87070; 87077; 87186; 87205 ==

== ENCOUNTER → 2023-02-21 13:17 | Outpatient (CLI) | payer MEDICAID, SELFPAY | PROVIDERS: PCP Emergency Medicine; Visit Provider Internal Medicine | DX: I51.9 Heart disease, unspecified (principal) | CPT/HCPCS: 93308 ==

== ENCOUNTER 2023-02-24 08:29 | Day surgery (SDC) | payer MEDICAID, SELFPAY ==
[2023-02-24] VITALS (15 sets, daily range): BP systolic 99–157; BP diastolic 64–86; PULSE 84–96; RESP 14–18; TEMP 36.9; O2SAT 95–98; BMI 33.3
--- NOTE | 2023-02-24 07:18 | IR_ITS ---
APPROVED REPORT Patient Location: Outpatient Fixed Route Bus Operator: JOSHUA Harrison RT (R) PROCEDURES Left heart catheterization Selective coronary angiogram Selective engage the left internal mammary artery Bilateral selective renal angiography Bare-metal stent deployment to the right renal artery INDICATION Coronary artery disease, Angina pectoris, Abnormal Myoview anterior ischemia, Chronic renal failure creatinine 1.9, Renal artery stenosis, Renovascular hypertension Informed consent was obtained prior to the procedure. COMPLICATIONS NONE Estimated Blood Loss: LESS THAN 10 ML TECHNIQUE One percent lidocaine used to anesthetize the right groin. The right femoral artery was accessed via the Seldinger technique and a 5 Surinamese sheath was placed in the right femoral artery. A JL 4, JR4 catheter were used to perform left heart catheterization, selective coronary angiography as well as selective engage the left internal mammary artery. Because of patient's renal insufficiency bilateral selective renal angiography was performed. At the end the diagnostic angiogram therapeutic heparin was administered and the 5 Surinamese sheath was exchanged for a 7 Surinamese sheath. Shortly and the guide catheter was placed in the left the right renal artery and a Choice PT extra-support wire was placed distally. A 6 mm x 15 mm Herculink stent was deployed at 18 mariam reducing the severe stenosis to 0%. At the end of the procedure there was wide patency of the right renal artery with poststenotic dilatation after the stent. At the end the procedure the apparatus was removed the groin is reprepped closure change sheath was removed good hemostasis was achieved using Perclose device patient was transferred to the postop putting in stable condition ANGIOGRAPHIC RESULTS The left main artery Normal The left anterior descending artery Has proximal 30% stenosis and then occluded immediately after a septal maintenance machine repairer and small diagonal artery The circumflex artery Is a dominant vessel and has a mid vessel 40% stenosis with an additional 30 to 40% stenosis in the third obtuse marginal The right coronary artery Vestigial and occluded at mid vessel The SMITH ventriculogram reveals Not performed The left ventricular end-diastolic pressure 10 mmHg MARTINEZ to LAD widely patent Left renal artery widely patent Right renal artery singular with an ostial eccentric 90% stenosis IMPRESSION Coronary disease as described above Normal left ventricular end-diastolic pressure Severe right renal artery stenosis Successful stenting the right renal artery severe disease reduced to 0% with 1 bare-metal stent PLAN 1. Continue medical management Electronically signed by : Valerio Boyce MD 02/24/2023 13:51:06
[2023-02-24 09:04] LABS: Basophils % 0.4 % (0.1-2.0); Eosinophils # 0.2 K/mm3 (0.0-0.4); Eosinophils % 2.9 % (0.1-12.0); Hematocrit 35.4 % (42.0-52.0); Hemoglobin 11.2 g/dL (14.1-18.0); Lymphocytes # 3.4 K/mm3 (0.7-4.5); Lymphocytes % 52.2 % (10-50); Mean Corpuscular HGB Conc 31.8 g/dL (31.8-35.4); Mean Corpuscular Hemoglobin 29.7 pg (27.0-31.2); Mean Corpuscular Volume 93.5 fl (80-94); Monocytes # 0.6 K/mm3 (0.1-1.0); Monocytes % 8.5 % (1.7-9.3); Neutrophils # 2.4 K/mm3 (1.8-7.8); Platelet Count 315 K/mm3 (142-424); Red Blood Count 3.78 M/mm3 (4.60-6.20); Red Cell Distribution Width 14.4 % (11.5-17.5); White Blood Count 6.5 K/mm3 (4.8-10.8)
[2023-02-24 09:08] LABS: Chloride 102 mmol/L (98-107); MANUAL DIFFERENTIAL MANUAL DIFFERENTIAL (MANUAL DIFF); Potassium 4.9 mmoL/L (3.5-5.1); Sodium 139 mmol/L (136-145)
[2023-02-24 09:11] LABS: Anion Gap 18.9 mEq/L (5-15); Blood Urea Nitrogen 28 mg/dl (9-20); Calcium 8.9 mg/dl (8.4-10.2); Carbon Dioxide 23 mmol/L (22.0-30.0); Creatinine Clearance Estimated 68 mL/min (50-200); Estimated Glomerular Filt Rate 36 ml/min (>60); GFR (African American) 44 ML/MIN (>60); Glucose 174 mg/dl (74-100)
[2023-02-24 09:24] LABS: Eosinophils % 1 % (0-3); Lymphocytes % 55 % (10-50); Monocytes % 10 % (2-9); Neutrophils % 34 % (42-76); Total Cells Counted 100
[2023-02-24 09:28] LABS: Platelet Estimate Normal; RBC Morphology Normal
[2023-02-24] MEDS: LIDOCAINE 1% 10ML MDV 20 ML IJ (10:26)
[2023-02-24] MEDS: diphenhydrAMINE 50MG/ML VIAL 50 MG IV (10:26)
[2023-02-24] MEDS: 0.9 % SODIUM CHLORIDE 500 ML 25 ML IV (10:26)
[2023-02-24] MEDS: HEPARIN 1,000 UNITS/500ML NS (CATH LAB) 3000 UNIT IV (10:26)
[2023-02-24] MEDS: MIDAZOLAM HCL 1MG/1ML 5ML VIAL 1 MG IV ×2 (11:05→11:21)
[2023-02-24] MEDS: FENTANYL 100MCG/2ML VIAL 50 MCG IV (11:05)
[2023-02-24] MEDS: HEPARIN 1,000 UNITS/ML 10ML VIAL (CATH LAB) 10000 UNIT IV (11:10)
[2023-02-24] MEDS: CLOPIDOGREL 300MG TABLET 300 MG PO (11:18)
[2023-02-24] MEDS: FENTANYL 100MCG/2ML VIAL 25 MCG IV (11:21)
--- NOTE | 2023-02-24 14:43 | SUR.PHASEII ---
Henry in pharmacy spoke with patient.
--- NOTE | 2023-02-24 15:01 | HMH.PHACL ---
PHA Multi Slide Machine Tender Discharge Med Volleyball Assistant Coach: Easton Hilton has received discharge medication counseling on the following medications: ASPIRIN 81 MG DAILY ATORVASTATIN 80 MG HS CARVEDILOL 12.5 MG BID PLAVIX 75 MG DAILY LISINOPRIL 20 MG BID
[2023-02-24] MEDS: IOPAMIDOL-370 (76%);100ML BOTTLE 70 ML IV (15:22)
[2023-02-24 15:24] LABS: CATHL Activated Clotting Time 275 SEC (74-125)
== END 2023-02-24 15:28 | disposition home or self-care (01) ==
PROVIDERS: PCP Emergency Medicine; Visit Provider Internal Medicine
DX: I25.118 Atherosclerotic heart disease of native coronary artery with other forms of angina pectoris (principal); E11.22 Type 2 diabetes mellitus with diabetic chronic kidney disease; Z79.4 Long term (current) use of insulin; Z79.899 Other long term (current) drug therapy; Z79.01 Long term (current) use of anticoagulants; Z95.1 Presence of aortocoronary bypass graft; I77.1 Stricture of artery; I70.1 Atherosclerosis of renal artery; Z87.891 Personal history of nicotine dependence; N18.9 Chronic kidney disease, unspecified; I15.0 Renovascular hypertension; I13.0 Hypertensive heart and chronic kidney disease with heart failure and stage 1 through stage 4 chronic kidney disease, or unspecified chronic kidney disease
CPT/HCPCS: 36251; 37236; 80048; 85007; 85025; 85347; 93455; 99152; 99153; C1725; C1760; C1769; C1876; C1887; C1894; J1644; Q9967

== ENCOUNTER → 2023-05-30 08:46 | Outpatient (CLI) | payer MEDICAID, SELFPAY | PROVIDERS: PCP Emergency Medicine; Visit Provider Nurse Practitioner | DX: I50.20 Unspecified systolic (congestive) heart failure (principal) | CPT/HCPCS: 93308; Q9957 ==

== ENCOUNTER → 2023-06-13 10:32 | Outpatient (CLI) | payer MEDICAID, SELFPAY ==
[2023-06-13 11:49] LABS: Anion Gap 14.4 mEq/L (5-15); Blood Urea Nitrogen 25 mg/dl (9-20); Calcium 9.3 mg/dl (8.4-10.2); Carbon Dioxide 28 mmol/L (22.0-30.0); Chloride 104 mmol/L (98-107); Estimated Glomerular Filt Rate 48 ml/min (>60); GFR (African American) 58 ML/MIN (>60); Glucose 163 mg/dl (74-100); Potassium 4.4 mmoL/L (3.5-5.1); Sodium 142 mmol/L (136-145)
== END ==
PROVIDERS: PCP Emergency Medicine; Visit Provider Internal Medicine
DX: E11.9 Type 2 diabetes mellitus without complications (principal); I11.0 Hypertensive heart disease with heart failure; I50.20 Unspecified systolic (congestive) heart failure; E78.5 Hyperlipidemia, unspecified; Z79.4 Long term (current) use of insulin
CPT/HCPCS: 36415; 80048

== ENCOUNTER → 2023-08-11 14:22 | Outpatient (CLI) | payer MEDICAID, SELFPAY ==
--- NOTE | 2023-08-11 14:26 | XR_ITS ---
FINAL REPORT CLINICAL HISTORY: left BKA COMPARISON: None FINDINGS: AP, lateral and oblique views of the left knee were obtained. There is no prior exam for comparison. There is no acute osseous abnormality of the left knee. There is marked degenerative change of the knee. The soft tissues are normal. There is no joint effusion. The patient has undergone a prior left below the knee amputation. IMPRESSION: No acute osseous abnormality of the left knee. Reviewed, Interpreted and Dictated by Letty Gaviria MD Transcribed by Charley Cardona Authenticated and [facility]
--- NOTE | 2023-08-11 14:26 | XR_ITS ---
FINAL REPORT CLINICAL HISTORY: left tibia pain fall x 1.5 weeks ago COMPARISON: None FINDINGS: AP and lateral views of the left tibia and fibula were obtained. There is no prior exam for comparison. The patient has undergone left below the knee amputation, and postoperative changes are identified with soft tissue edema surrounding the distal stump. No evidence of bone destruction is seen. No air is noted in the soft tissues and no radiopaque foreign bodies are seen. IMPRESSION: Left below the knee amputation, with postoperative changes and soft tissue swelling surrounding the distal stump. Reviewed, Interpreted and Dictated by Letty Gaviria MD Transcribed by Charley Cardona Authenticated and [facility]
== END ==
PROVIDERS: PCP Emergency Medicine; Visit Provider Orthopaedic Surgery
DX: M89.8X6 Other specified disorders of bone, lower leg; Z89.512 Acquired absence of left leg below knee; W19.XXXA Unspecified fall, initial encounter
CPT/HCPCS: 73562; 73590

== ENCOUNTER → 2023-10-13 10:51 | Outpatient (CLI) | payer MEDICAID, SELFPAY | PROVIDERS: PCP Internal Medicine; Visit Provider Nurse Practitioner | DX: I63.9 Cerebral infarction, unspecified (principal) ==

== ENCOUNTER → 2023-10-21 06:31 | Outpatient (CLI) | payer MEDICAID, SELFPAY ==
--- NOTE | 2023-10-21 06:39 | CT_ITS ---
FINAL REPORT CLINICAL HISTORY: visual disturbances/possible stroke COMPARISON: None FINDINGS: Thin-section axial CT with IV contrast supplemented with multi planar reconstruction under CT angiogram protocol was performed of the head and neck. This study was performed technique to keep radiation doses as low as reasonably achievable, (ALARA). NASCET criteria was utilized during interpretation. CTA head: No aneurysm is seen. Major intracranial vessels are patent without significant stenosis. IMPRESSION: No evidence of significant stenosis, aneurysm or major branch occlusion. CTA neck: Aortic arch: Arch shows no significant narrowing. Great vessel origins are widely patent. Right carotid: No significant stenosis is seen at the cervical common or internal carotid artery. There is mild diffuse intimal thickening of the common and internal carotid arteries.. Left carotid: No significant stenosis is seen at the cervical common or internal carotid artery. There is mild diffuse intimal thickening of the common and internal carotid arteries. Vertebrals: Left vertebral artery is dominant. No significant stenosis is present. IMPRESSION: No evidence of significant stenosis or major branch occlusion. Reviewed, Interpreted and Dictated by Castillo Machado III, MD Transcribed by Charley Cardona Authenticated and [facility]
--- NOTE | 2023-10-21 06:39 | CT_ITS ---
FINAL REPORT TECHNIQUE: Thin-section axial CT with IV contrast supplemented with multi planar reconstruction under CT angiogram protocol was performed of the neck. This study was performed technique to keep radiation doses as low as reasonably achievable, (ALARA). NASCET criteria was utilized during interpretation. CLINICAL HISTORY: visual disturbances/possible stroke FINDINGS: Aortic arch: Arch shows no significant narrowing. Great vessel origins are widely patent. Right carotid: No significant stenosis is seen at the cervical common or internal carotid artery. There is mild intimal thickening of the common and internal carotid arteries on the right. Left carotid: No significant stenosis is seen at the cervical common or internal carotid artery. There is mild intimal thickening of the common and internal carotid arteries on the left. Vertebrals: Left vertebral artery is dominant. No significant stenosis is present. IMPRESSION: No evidence of significant stenosis or major branch occlusion. Reviewed, Interpreted and Dictated by Castillo Machado III, MD Transcribed by Charley Cardona Authenticated and [facility]
[2023-10-21 07:11] LABS: Blood Urea Nitrogen 23 mg/dl (9-20); Estimated Glomerular Filt Rate 41 ml/min (>60); GFR (African American) 50 ML/MIN (>60)
== END ==
PROVIDERS: PCP Internal Medicine; Visit Provider Internal Medicine
DX: I11.0 Hypertensive heart disease with heart failure (principal); I25.10 Atherosclerotic heart disease of native coronary artery without angina pectoris; I50.20 Unspecified systolic (congestive) heart failure; I70.1 Atherosclerosis of renal artery; I73.9 Peripheral vascular disease, unspecified; H53.9 Unspecified visual disturbance; Z95.1 Presence of aortocoronary bypass graft; E78.5 Hyperlipidemia, unspecified; E11.9 Type 2 diabetes mellitus without complications; Z79.4 Long term (current) use of insulin; Z79.84 Long term (current) use of oral hypoglycemic drugs; Z87.891 Personal history of nicotine dependence
CPT/HCPCS: 36415; 70496; 70498; 82565; 84520; Q9967

== ENCOUNTER 2024-01-25 15:22 | Outpatient (CLI) | payer MEDICAID, SELFPAY ==
[2024-01-25 16:01] LABS: Basophils # 0.1 K/mm3 (0-0.2); Eosinophils # 0.2 K/mm3 (0.0-0.4); Eosinophils % 1.7 % (0.1-12.0); Hematocrit 37.2 % (42.0-52.0); Hemoglobin 11.8 g/dL (14.1-18.0); Lymphocytes # 6.5 K/mm3 (0.7-4.5); Lymphocytes % 64.7 % (10-50); Mean Corpuscular HGB Conc 31.6 g/dL (31.8-35.4); Mean Corpuscular Hemoglobin 31.2 pg (27.0-31.2); Mean Corpuscular Volume 98.6 fl (80-94); Mean Platelet Volume 8.5 fl (7.4-10.4); Monocytes # 0.6 K/mm3 (0.1-1.0); Monocytes % 5.7 % (1.7-9.3); Neutrophils # 2.7 K/mm3 (1.8-7.8); Platelet Count 316 K/mm3 (142-424); Red Blood Count 3.77 M/mm3 (4.60-6.20); Red Cell Distribution Width 15.6 % (11.5-17.5)
[2024-01-25 16:04] LABS: MANUAL DIFFERENTIAL MANUAL DIFFERENTIAL (MANUAL DIFF)
[2024-01-25 17:16] LABS: Lymphocytes % 57 % (10-50); Monocytes % 10 % (2-9); Neutrophils % 32 % (42-76); Nucleated Red Blood Cells 1; Total Cells Counted 100
[2024-01-25 17:17] LABS: Hypochromasia 2+; Macrocytosis 1+; Platelet Estimate Normal
[2024-01-25 17:44] LABS: Chloride 105 mmol/L (98-107); Potassium 5.1 mmoL/L (3.5-5.1); Sodium 141 mmol/L (136-145)
[2024-01-25 17:47] LABS: Alanine Aminotransferase 22 U/L (12-78); Albumin Level 4.2 g/dl (3.5-5.0); Albumin/Globulin Ratio 1.2 (1.1-1.8); Alkaline Phosphatase 88 U/L (38-126); Anion Gap 14.1 mEq/L (5-15); Aspartate Amino Transferase 42 U/L (17-59); Bilirubin,Total 0.2 mg/dl (0.2-1.3); Blood Urea Nitrogen 28 mg/dl (9-20); Calcium 9.6 mg/dl (8.4-10.2); Carbon Dioxide 27 mmol/L (22.0-30.0); Estimated Glomerular Filt Rate 44 ml/min (>60); GFR (African American) 53 ML/MIN (>60); Globulin 3.4 g/dL (1.3-3.2); Glucose 62 mg/dl (74-100); Total Protein,Serum 7.6 g/dl (6.3-8.2)
== END 2024-01-25 23:59 ==
LOC: LAB.DROPOF 15:23
PROVIDERS: PCP Internal Medicine; Visit Provider Internal Medicine
DX: I10 Essential (primary) hypertension (principal); E11.69 Type 2 diabetes mellitus with other specified complication; Z79.4 Long term (current) use of insulin
CPT/HCPCS: 80053; 85007; 85025

== ENCOUNTER 2024-01-26 14:44 | Outpatient (CLI) | payer MEDICAID, SELFPAY ==
--- NOTE | 2024-01-26 14:44 | CA_ITS ---
APPROVED REPORT EXAM: Comprehensive 2D, Doppler, and color-flow Echocardiogram [employer] Associate: ALEKSEY Schofield, RVS Ht: 6 ft 2 in Wt: 260lbs BSA: 2.43 BP: 142/80 mmHg Indications: Bilateral leg amputation-wheelchair bound/scanned upright in wheelchair due to patient. CAD hx-CABG, CVA,CKD, GERD Echo Enhancing Agent Comments: Extremely limited windows: patient unable to recline nor sit upright, patient hunchedthroughout exam and became agitated. Best exam possible given extreme positioning limitations 2D Dimensions IVSd 1.13 cm M: 0.6-1.2 LVEF (Visual) 54.00 % PWd 1.02 cm M: 0.6 - 1.2 EF AP4 54.20 % LVDd 4.97 cm M: 4.2 - 5.9 GL Strain -9.5 % LVDs 3.20 cm M: 2.5 - 4.0 Left Atrium 3.27 cm M: 3.0 - 4.0 M-Mode Dimensions RVDd 2.15 cm (0.9-2.6) LA Diam 4.61 cm (1.9-4.0) LVDd 4.28 cm (3.5-5.7) LVDs 3.96 cm (3.5-5.7) IVSd 1.19 cm (0.6-1.1) PWd 1.44 cm (0.6-1.1) EF (Teich) 38.00% EPSs 0.68 cm FS 18.40% EDV (Teich) 110.20 mL ESV (Teich) 68.30 mL LV Diastology E Decel Time 233 (160-240 msec) E/A Ratio 0.88 LAT A' 9.20 cm/s Aortic Valve AO Peak GR. 5.90 mmHg Mitral Valve MV A Velocity 48.0 (40-130 cm/s) E/A Ratio 0.88 Pulmonary Valve PV Peak Velocity 87.0 (50-150 cm/s) WI End VMAX 176.0 cm/s Left Ventricle The left ventricle is normal size. The left ventricular systolic function cannot be accurately estimated due to technically difficult study, but appears to be possibly moderately to severely reduced. There is increased LV wall thickness. Regional wall motion cannot be evaluated due to technically difficult study. Grade 1 diastolic dysfunction is present. LVEF is approximately 30% (may be inaccurate in the setting of technically difficult study and inadequate visualization of LV endocardial borders). Right Ventricle The right ventricle is not well-visualized. Atria The left atrium size is normal. The right atrium is not well-visualized. The interatrial septum is not well-visualized Aortic Valve The aortic valve is mildly thickened. There is no aortic valvular stenosis. No aortic regurgitation is present. Mitral Valve The mitral valve is normal in structure. No evidence of mitral valve stenosis. Trace mitral regurgitation. Tricuspid Valve The tricuspid valve leaflets are thin and pliable. Trace tricuspid regurgitation. There is insufficient TR jet to estimate RVSP. Pulmonic Valve The pulmonary valve is normal in structure. Mild pulmonic regurgitation. Great Vessels The aortic root is normal in size. The ascending aorta is not well-visualized. The IVC is not well-visualized. Pericardium There is no pericardial effusion. Other Information Study Quality: Technically Difficult Conclusion Technically difficult study due to poor acoustic windows and inability to position patient. LV systolic function difficult to estimate in the setting of technically difficult study but is possibility moderately to severely reduced with LVEF of approximately 30%. RV is not well-visualized. No significant valvular stenosis or regurgitation in the visualized images. If clinically deemed necessary, accurate assessment of LVEF and LV systolic function is recommended with either limited TTE + ultrasound enhancing agent (UEA) or with cardiac MRI (cardiomyopathy protocol). Electronically signed by : Barbara Hawk MD 01/28/2024 23:09:08
== END 2024-01-26 23:59 ==
LOC: RT 14:44
PROVIDERS: PCP Internal Medicine; Visit Provider Nurse Practitioner
DX: I50.20 Unspecified systolic (congestive) heart failure (principal); I25.10 Atherosclerotic heart disease of native coronary artery without angina pectoris; Z95.1 Presence of aortocoronary bypass graft
CPT/HCPCS: 93306

== ENCOUNTER 2024-02-17 11:02 | Outpatient (CLI) | payer MEDICAID, SELFPAY ==
--- NOTE | 2024-02-17 11:07 | CA_ITS ---
APPROVED REPORT EXAM: Comprehensive 2D, Doppler, and color-flow Echocardiogram Floral Design Teacher: Christiane Warner RDCS Ht: 6 ft 2 in Wt: 260lbs BSA: 2.43 BP: 129/51 mmHg Indications: CHF CABG ORDERED WITH INFINITY PATIENT DECLINED IV FOR CONTRAST TDS PT IN WHEELCHAIR, S/P AMPUTATION M-Mode Dimensions RVDd 1.75 cm (0.9-2.6) LA Diam 3.51 cm (1.9-4.0) LVDd 5.07 cm (3.5-5.7) LVDs 3.62 cm (3.5-5.7) IVSd 1.41 cm (0.6-1.1) PWd 1.14 cm (0.6-1.1) EF (Teich) 54.80% FS 28.60% EDV (Teich) 122.10 mL ESV (Teich) 55.20 mL Left Ventricle The left ventricle is normal size. The left ventricular systolic function is normal. The left ventricular ejection fraction is within the normal range. There is increased LV wall thickness. There is normal LV segmental wall motion. Diastolic function is indeterminate. LVEF is 55%. Right Ventricle The right ventricle is not well visualized. Atria The left atrium size is normal. The right atrium is not well-visualized. Aortic Valve The aortic valve is mildly thickened. Trace aortic regurgitation. There is no aortic valvular stenosis. Mitral Valve The mitral valve leaflets are mildly thickened. No evidence of mitral valve stenosis. Trace mitral regurgitation. Tricuspid Valve The tricuspid valve leaflets are thin and pliable. Trace tricuspid regurgitation. There is insufficient TR jet to estimate RVSP. Pulmonic Valve The pulmonic valve is not well-visualized. Great Vessels The aortic root is normal in size. The ascending aorta is not well-visualized. The IVC is not well-visualized. Pericardium There is no pericardial effusion. Other Information Study Quality: Technically Difficult Conclusion Technically difficult study due to poor acoustic windows and patient positioning. The patient also declined placement of of IV line for administration of ultrasound enhancing agent. ormal LV systolic function. RV is not well-visualized. No significant valvular stenosis or regurgitation in the visualized valves. Electronically signed by : Barbara Hawk MD 02/21/2024 21:42:27
== END 2024-02-17 23:59 ==
LOC: RT 11:03
PROVIDERS: PCP Internal Medicine; Visit Provider Physician Assistant
DX: I51.9 Heart disease, unspecified (principal)
CPT/HCPCS: 93306

== ENCOUNTER 2024-05-11 15:33 | Outpatient (CLI) | payer MEDICAID, SELFPAY ==
[2024-05-11 16:36] LABS: Alanine Aminotransferase 18 U/L (12-78); Albumin Level 4.3 g/dl (3.5-5.0); Albumin/Globulin Ratio 1.2 (1.1-1.8); Alkaline Phosphatase 77 U/L (38-126); Anion Gap 15.9 mEq/L (5-15); Aspartate Amino Transferase 27 U/L (17-59); Bilirubin,Total 0.4 mg/dl (0.2-1.3); Blood Urea Nitrogen 22 mg/dl (9-20); Carbon Dioxide 26 mmol/L (22.0-30.0); Chloride 105 mmol/L (98-107); Cholesterol 140 mg/dl (140-200); Estimated Glomerular Filt Rate 47 ml/min (>60); GFR (African American) 57 ML/MIN (>60); Globulin 3.6 g/dL (1.3-3.2); Glucose 90 mg/dl (74-100); HDL Cholesterol 20 mg/dl (40-60); Potassium 4.9 mmoL/L (3.5-5.1); Sodium 142 mmol/L (136-145); Total Protein,Serum 7.9 g/dl (6.3-8.2); Triglycerides 288 mg/dl (30-150); VLDL Cholesterol 58 mg/dL (0-40)
[2024-05-11 16:47] LABS: Direct LDL Cholesterol 67.79 mg/dL (100-129)
[2024-05-11 21:44] LABS: Hemoglobin A1C 5.9 % (4.0-6.0)
== END 2024-05-11 23:59 | disposition home or self-care (01) ==
LOC: LAB.DROPOF 15:36
PROVIDERS: PCP Internal Medicine; Visit Provider Family Medicine
DX: E11.69 Type 2 diabetes mellitus with other specified complication (principal); I48.92 Unspecified atrial flutter; I51.9 Heart disease, unspecified
CPT/HCPCS: 80053; 80061; 83036

== ENCOUNTER 2024-09-05 12:35 | Outpatient (CLI) | payer MEDICAID, SELFPAY ==
--- NOTE | 2024-09-05 12:36 | MR_ITS ---
PROCEDURE INFORMATION: Exam: MR Left Lower Extremity Joint Without Contrast, Knee Exam date and time: 09/05/2024 12:59 PM Age: 63 years old Clinical indication: Pain; Knee; Left; Additional info: Left knee pain, possible nondisplaced FX TECHNIQUE: Imaging protocol: Magnetic resonance imaging of the left lower extremity joint without contrast. Exam focused on the knee. COMPARISON: MR KNEE LT WO/W CON 04/05/2022 1:58 PM FINDINGS: Bones/joints: There is moderate articular cartilage loss in the medial compartment with small marginal osteophytes. There is also grade 2 chondromalacia of the lateral patellar facet with grade 4 chondromalacia along the femoral trochlea. There is a small effusion. Medial meniscus: No tear. Lateral meniscus: There is a small vertical tear of the body of the lateral meniscus. Anterior cruciate ligament: No tear. Posterior cruciate ligament: No tear. Medial capsule and supporting structures: No tear. Lateral capsule and supporting structures: No tear. Extensor mechanism of knee: There are areas of tendinopathy of the patellar ligament. No tear. Soft tissues: There is superficial soft tissue edema in the calf not fully included. IMPRESSION: 1. No fracture in the visualized osseous structures. 2. Small tear body lateral meniscus. 3. [id number] osteoarthritis associated with a small effusion.
== END 2024-09-05 23:59 | disposition home or self-care (01) ==
LOC: RAD 12:36
PROVIDERS: PCP Nurse Practitioner Family; Visit Provider Nurse Practitioner Family
DX: M25.562 Pain in left knee (principal)
CPT/HCPCS: 73721

== ENCOUNTER 2024-11-13 15:18 | Outpatient (CLI) | payer MEDICAID, SELFPAY ==
[2024-11-13 15:28] LABS: Basophils % 0.1 % (0.1-2.0); Eosinophils # 0.1 K/mm3 (0.0-0.4); Eosinophils % 0.9 % (0.1-12.0); Hematocrit 34.4 % (42.0-52.0); Hemoglobin 10.4 g/dL (14.1-18.0); Lymphocytes # 10.7 K/mm3 (0.7-4.5); Lymphocytes % 72.5 % (10-50); Mean Corpuscular HGB Conc 30.2 g/dL (31.8-35.4); Mean Corpuscular Hemoglobin 29.5 pg (27.0-31.2); Mean Corpuscular Volume 97.5 fl (80-94); Mean Platelet Volume 10.4 fl (7.4-10.4); Monocytes # 0.8 K/mm3 (0.1-1.0); Monocytes % 5.6 % (1.7-9.3); Neutrophils % 20.8 % (37.0-80.0); Platelet Count 287 K/mm3 (142-424); Red Blood Count 3.53 M/mm3 (4.60-6.20); Red Cell Distribution Width 14.5 % (11.5-17.5); White Blood Count 14.7 K/mm3 (4.8-10.8)
[2024-11-13 15:35] LABS: MANUAL DIFFERENTIAL MANUAL DIFFERENTIAL (MANUAL DIFF)
[2024-11-13 15:42] LABS: Anisocytosis 1+; Eosinophils % 1 % (0-3); Lymphocytes % 66 % (10-50); Macrocytosis 1+; Monocytes % 5 % (2-9); Neutrophils % 28 % (42-76); Ovalocytes 1+; Platelet Estimate Normal; Total Cells Counted 100
[2024-11-13 17:19] LABS: Chloride 105 mmol/L (98-107); Potassium 5.8 mmoL/L (3.5-5.1); Sodium 139 mmol/L (136-145)
[2024-11-13 17:22] LABS: Anion Gap 17.8 mEq/L (5-15); Blood Urea Nitrogen 36 mg/dl (9-20); Carbon Dioxide 22 mmol/L (22.0-30.0); Estimated Glomerular Filt Rate 30 ml/min (>60); GFR (African American) 37 ML/MIN (>60)
[2024-11-13 17:23] LABS: Calcium 9.5 mg/dl (8.4-10.2); Glucose 127 mg/dl (74-100)
== END 2024-11-13 23:59 | disposition home or self-care (01) ==
LOC: LAB.DROPOF 15:19
PROVIDERS: PCP Family Medicine; Visit Provider Family Medicine
DX: J96.01 Acute respiratory failure with hypoxia (principal); K26.4 Chronic or unspecified duodenal ulcer with hemorrhage; K59.00 Constipation, unspecified; L97.919 Non-pressure chronic ulcer of unspecified part of right lower leg with unspecified severity; I12.9 Hypertensive chronic kidney disease with stage 1 through stage 4 chronic kidney disease, or unspecified chronic kidney disease; N99.0 Postprocedural (acute) (chronic) kidney failure; R13.10 Dysphagia, unspecified; R57.1 Hypovolemic shock; T87.81 Dehiscence of amputation stump; Z86.19 Personal history of other infectious and parasitic diseases; Z86.39 Personal history of other endocrine, nutritional and metabolic disease; Z86.69 Personal history of other diseases of the nervous system and sense organs; Z89.611 Acquired absence of right leg above knee; Z87.891 Personal history of nicotine dependence
CPT/HCPCS: 80048; 85007; 85025; 85027

== ENCOUNTER 2025-01-25 14:22 | Emergency (ER) | payer MEDICAID, SELFPAY ==
[2025-01-25 14:29] VITALS: BP 152/88; PULSE 88; RESP 16; TEMP 37.2; O2SAT 99; BMI 34.7
--- NOTE | 2025-01-25 14:48 | PC.NURSE ---
EMS called for transport back to [place]
--- NOTE | 2025-01-25 14:49 | ED_ITS ---
Discharge Plan Disposition Patient Disposition: Home, Self-Care Condition: Good Prescriptions Prescriptions: No Action insulin glargine [Lantus Solostar U-100 Insulin] 100 unit/mL (3 mL) insulin pen 75 unit SQ HS cyclobenzaprine 5 mg tablet 5 mg PO TID prazosin 2 mg capsule 3 mg PO HS carvedilol [Coreg] 25 mg tablet 25 mg PO BID Qty: 60 3RF Rx Instructions: must administer with a meal/food multivitamin [One-A-Day Essential] Tablet 1 tab PO DAILY promethazine 25 mg tablet 25 mg PO Q4H PRN dextromethorphan-guaifenesin [Robafen DM Cough] 10-100 mg/5 mL liquid 10 ml PO Q6H PRN trazodone 150 mg tablet 150 mg PO QHS insulin NPH and regular human 100 unit/mL (70-30) suspension 65 unit SQ DAILY venlafaxine 150 mg capsule,extended release 24hr 150 mg PO DAILY Entresto 97-103 mg tablet 1 tab PO BID Qty: 60 3RF metformin 1,000 mg tablet 1,000 mg PO BID Qty: 180 3RF spironolactone [Aldactone] 25 mg tablet 25 mg PO DAILY Qty: 90 3RF rivaroxaban 2.5 mg tablet 2.5 mg PO BID 90 Days Qty: 180 3RF quetiapine 400 mg tablet 400 mg PO HS (DME) BD AutoShield Duo Pen Needle 30 gauge x 3/16 needle See Rx Instructions .ROUTE .MEDSUPPLY Qty: 100 Rx Instructions: As directed coQ10 (ubiquinol) [Qunol Kurtis CoQ10] 100 mg capsule 100 mg PO BID Qty: 180 3RF lactulose 10 gram/15 mL solution 30 ml PO DAILYP PRN (Reason: Constipation) Jardiance 25 mg tablet 25 mg PO DAILY Qty: 90 3RF gabapentin 300 mg capsule 300 mg PO TID Qty: 90 5RF clonazepam 0.5 mg tablet 0.5 mg PO BID Qty: 60 5RF hydrocodone-acetaminophen 5-325 mg tablet 1 tab PO BID PRN (Reason: pain) Qty: 60 0RF pantoprazole 40 MG tablet,delayed release (DR/EC) 40 mg PO DAILY polyethylene glycol 3350 17 GM powder in packet 17 g PO DAILY aspirin 81 MG tablet,chewable 81 mg PO DAILY atorvastatin 80 MG tablet 80 mg PO HS acetaminophen 325 MG tablet 650 mg PO Q6HP PRN (Reason: Mild To Moderate Pain) 0RF docusate sodium 100 MG capsule 100 mg PO BIDP PRN (Reason: Constipation) 0RF Referrals Follow up/Referrals: Provider,Referral, MD [Primary Care Provider] - See instructions Activity Restrictions/Add. Instructions Additional Instructions/Restrictions: Today your evaluated in the emergency department. You have dry skin. Please use lotion on the area. Clinical Impressions Clinical Impression: Dry skin Instructions Patient Instructions: Creating a Healthy Sleep Routine Print Language Print Language: Vietnamese Discharge ED Provider: Vikas Markham General Adult HPI <Lilibeth Tejada APRN - Last Filed: 01/25/25 14:55> General Chief complaint: Fall Stated complaint: Fall Time Seen by Provider: 01/25/25 14:25 Mode of Arrival: EMS Source of Information: Patient Description of Symptoms (Recalled from ER Triage Doc. by RN): Patient states he fell asleep in his wheelchair that went forward causing him to almost hit the floor. Patient with no complaints at this time. Requesting a lunch tray and pain medications. History of Present Illness HPI narrative: patient is a 64-year-old male PMHx right [id number] amputation, left below the knee amputation, HFrEF, CVA, diabetes, HLD, HTN, coronary bypass, CAD, PAD, KAITLIN, history of anemia who presents to the ED via EMS after falling asleep in his wheelchair. Related Data Home Medications ?Medication ?Instructions ?Recorded ?Confirmed aspirin 81 mg chewable tablet 81 mg PO DAILY HEART HEALTH 12/05/19 01/22/25 atorvastatin 80 mg tablet 80 mg PO HS Cholesterol 12/05/19 01/22/25 pantoprazole 40 mg tablet,delayed 40 mg PO DAILY Reflux/Acid reflux 12/05/19 01/22/25 release polyethylene glycol 3350 17 gram 17 g PO DAILY constipation 12/05/19 01/22/25 oral powder packet cyclobenzaprine 5 mg tablet 5 mg PO TID MUSCLE SPASMS 07/14/20 01/22/25 lactulose 10 gram/15 mL oral 30 ml PO DAILYP PRN Constipation 02/03/21 01/22/25 solution insulin glargine 100 unit/mL (3 75 unit SQ HS Diabetes 02/16/23 01/22/25 mL) subcutaneous pen (Lantus Solostar U-100 Insulin) multivitamin (One-A-Day Essential 1 tab PO DAILY 01/16/24 01/22/25 tablet) insulin human U-100 NPH-regulr 65 unit SQ DAILY 05/24/24 01/22/25 70-30 mix 100 unit/mL subcutaneous susp quetiapine 400 mg tablet 400 mg PO HS 08/29/24 01/22/25 dextromethorphan-guaifenesin 10 10 ml PO Q6H PRN 11/13/24 01/22/25 mg-100 mg/5 mL oral liquid (Robafen DM Cough) promethazine 25 mg tablet 25 mg PO Q4H PRN 11/13/24 01/22/25 pen needle,diabetic dual safty 30 #100 ea 11/29/24 01/22/25 gauge x 3/16 (BD AutoShield Duo Pen Needle) prazosin 2 mg capsule 3 mg PO HS . 01/22/25 01/22/25 trazodone 150 mg tablet 150 mg PO QHS 01/22/25 01/22/25 venlafaxine 150 mg 150 mg PO DAILY 01/22/25 01/22/25 capsule,extended release 24 hr Previous Rx's ?Medication ?Instructions ?Recorded acetaminophen 325 mg tablet 650 mg (2 x 325 mg) PO Q6HP PRN 04/02/21 Mild To Moderate Pain docusate sodium 100 mg capsule 100 mg PO BIDP PRN Constipation 04/02/21 sacubitril 97 mg-valsartan 103 mg 1 tab PO BID #60 tabs 03/08/23 tablet (Entresto) carvedilol 25 mg tablet (Coreg) 25 mg PO BID #60 tabs 06/13/23 metformin 1,000 mg tablet 1,000 mg PO BID #180 tabs 12/03/23 rivaroxaban 2.5 mg tablet 2.5 mg PO BID Blood thinner 90 02/06/24 days #180 tabs spironolactone 25 mg tablet 25 mg PO DAILY #90 tabs 02/06/24 (Aldactone) empagliflozin 25 mg tablet 25 mg PO DAILY #90 tabs 08/14/24 (Jardiance) coQ10 (ubiquinol) 100 mg capsule 100 mg PO BID #180 caps 11/13/24 (Qunol Kurtis CoQ10) gabapentin 300 mg capsule 300 mg PO TID #90 caps 12/24/24 clonazepam 0.5 mg tablet 0.5 mg PO BID anxiety #60 tabs 01/05/25 hydrocodone 5 mg-acetaminophen 325 1 tab PO BID PRN pain #60 tabs 01/15/25 mg tablet Allergies Allergy/AdvReac Type Severity Reaction Status Date / Time No Known Allergies Allergy Verified 01/22/25 10:14 [facility] <Lilibeth Tejada APRN - Last Filed: 01/25/25 14:55> [facility] Disclaimer: The information contained in this section may have been updated after the patient was seen, as this information can be updated by other users. Medical History Colon cancer screening Cologuard April 2024, Anemia HFrEF (heart failure with reduced ejection fraction) Visual disturbance Systolic heart failure Renal artery stenosis LV dysfunction COVID-19 Below-knee amputation of left lower extremity Diabetes mellitus with diabetic neuropathy Acute kidney injury Dehiscence of amputation stump Postprocedural (acute) (chronic) kidney failure Non-pressure chronic ulcer of unspecified part of right lower leg with unspecified severity Peptic ulcer, site unspecified, unspecified as acute or chronic, without hemorrhage or perforation Chronic or unspecified duodenal ulcer with hemorrhage Acute respiratory failure with hypoxia 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 Chronic osteomyelitis of left foot Overweight (BMI 25.0-29.9) Above knee amputation of right lower extremity Postoperative wound dehiscence Hyperlipidemia Hypertension Coronary artery disease Ischemic ulcer of left foot Peripheral arterial occlusive disease Onychodystrophy Surgical History History of right above knee amputation History of left below knee amputation History of colonoscopy Status post transmetatarsal amputation of left foot History of coronary artery bypass graft Social History Smoking Status: Current every day smoker tobacco type: cigarettes packs per day: 0 second hand exposure: No alcohol intake: never substance use type: denies use current occupational status: retired Travel in the last 8 weeks: None household members: other housing: retirement current occupational exposures/hazards: No caffeine: No Other Medical History Have you received the Flu Vaccine for this season: Yes Have you received the Pneumonia Vaccine: Yes (10/03/17) <Lilibeth Tejada APRN - Last Filed: 01/25/25 14:55> ROS Obtained: Yes Systems reviewed as appropriate & no additional complaints except as documented Physical Exam <Lilibeth Tejada APRN - Last Filed: 01/25/25 14:55> General General appearance: alert and in no apparent distress Head Head exam: atraumatic and normocephalic Eye Eye exam: Present normal appearance and PERRL ENT ENT exam: Present normal exam Neck Neck exam: Present normal inspection Chest Chest inspection: Present normal inspection and symmetric chest wall rise; Absent tenderness Respiratory Respiratory exam: Present normal lung sounds bilaterally Cardiovascular Cardiovascular exam: Present regular rate Abdominal Exam Abdominal exam: Present soft and normal bowel sounds; Absent tenderness Extremities Exam Extremities exam: Present normal inspection and full ROM Back Exam Back exam: Present normal inspection and full ROM Neurological Exam Neurological exam: Present alert and oriented X3 Psychiatric Psychiatric exam: Present normal affect and normal mood Skin Skin exam: Present warm, dry and other (dry skin on left lateral thigh ) Medical Decision Making <Lilibeth Tejada APRN - Last Filed: 01/25/25 14:55> Medical Records Screening: Per USPSTF and CDC recommendations, given the prevalence of disease in our region, it is our hospital?s policy to screen for HIV and viral Hepatitis for all patients aged 18 and over and those with ongoing risk factors. [place] Inquiry Pt receiving controlled substance: No [place] was queried for this patient: No Vital Signs: 01/25/25 14:29 01/25/25 14:57 Temperature 99.0 F 99.0 F Temperature Source Oral Oral Pulse Rate 78 Pulse Rate [Radial] 88 Respiratory Rate 16 16 Blood Pressure 156/70 H Blood Pressure [Right Arm] 152/88 H Blood Pressure Mean [Right Arm] 109 Blood Pressure Source Automatic Cuff Blood Pressure Source [Right Arm] Automatic Cuff Blood Pressure Position Sitting Blood Pressure Position [Right Arm] Sitting 02 Sat by Pulse Oximetry 99 Oxygen Delivery Method Room Air Room Air Orders (Tests/Meds): ORDERS Category Date Time Status HIV Combo Stat Lab 01/25/25 14:35 Ordered Hepatitis C Ab Qual. W/ RFX Stat Lab 01/25/25 14:35 Ordered Medical Decision Narrative: In summary, patient is a 64-year-old male PMHx right [id number] amputation, left below the knee amputation, HFrEF, CVA, diabetes, HLD, HTN, coronary bypass, CAD, PAD, KAITLIN, history of anemia who presents to the ED via EMS after falling asleep in his wheelchair. Patient states that he was sitting in his wheelchair while wearing the seatbelt and leaned forward and fell asleep. Patient denies falling out of the wheelchair, denies Wiltcher tipping over, denies any injury from this event. Patient states that he thinks he may have a rash on his left lower extremity that he would like evaluated. Denies fever, chills, headache, visual disturbances, posterior neck pain, back pain, chest pain, shortness of breath, abdominal pain, nausea, vomiting, dysuria. Upon initial evaluation patient is alert, oriented and cooperative. He is hemodynamically stable. His physical exam is unremarkable. Neurological exam intact. Abdomen soft nontender. No spinal tenderness. Patient has dry skin on his left lower extremity. Discussed with patient that we can give him some lotion to put on his dry skin. Advised him he should be using lotion daily. Patient denies any injuries. Given this, feel the patient is appropriate to be discharged at this time. He is agreeable. Follow-up with PCP within 1 week. Return to the ED for any worsening of condition. <Vikas Markham MD - Last Filed: 01/25/25 15:00> Vital Signs: 01/25/25 14:29 01/25/25 14:57 Temperature 99.0 F 99.0 F Temperature Source Oral Oral Pulse Rate 78 Pulse Rate [Radial] 88 Respiratory Rate 16 16 Blood Pressure 156/70 H Blood Pressure [Right Arm] 152/88 H Blood Pressure Mean [Right Arm] 109 Blood Pressure Source Automatic Cuff Blood Pressure Source [Right Arm] Automatic Cuff Blood Pressure Position Sitting Blood Pressure Position [Right Arm] Sitting 02 Sat by Pulse Oximetry 99 Oxygen Delivery Method Room Air Room Air Orders (Tests/Meds): ORDERS Category Date Time Status HIV Combo Stat Lab 01/25/25 14:35 Ordered Hepatitis C Ab Qual. W/ RFX Stat Lab 01/25/25 14:35 Ordered Medical Decision Narrative: In summary, patient is a 64-year-old male PMHx right [id number] amputation, left below the knee amputation, HFrEF, CVA, diabetes, HLD, HTN, coronary bypass, CAD, PAD, KAITLIN, history of anemia who presents to the ED via EMS after falling asleep in his wheelchair. Patient states that he was sitting in his wheelchair while wearing the seatbelt and leaned forward and fell asleep. Patient denies falling out of the wheelchair, denies Wiltcher tipping over, denies any injury from this event. Patient states that he thinks he may have a rash on his left lower extremity that he would like evaluated. Denies fever, chills, headache, visual disturbances, posterior neck pain, back pain, chest pain, shortness of breath, abdominal pain, nausea, vomiting, dysuria. Upon initial evaluation patient is alert, oriented and cooperative. He is hemodynamically stable. His physical exam is unremarkable. Neurological exam intact. Abdomen soft nontender. No spinal tenderness. Patient has dry skin on his left lower extremity. Discussed with patient that we can give him some lotion to put on his dry skin. Advised him he should be using lotion daily. Patient denies any injuries. Given this, feel the patient is appropriate to be discharged at this time. He is agreeable. Follow-up with PCP within 1 week. Return to the ED for any worsening of condition. I was consulted by the DAISY, and we discussed the complexity of the problems being addressed. I approved the treatment and management plan for this patient's care in the emergency department, thus performing a substantive portion of the medical decision making. Vikas Markham MD Critical Care <Lilibeth Tejada APRN - Last Filed: 01/25/25 14:55> Critical Care Time Critical Care Time: No
--- NOTE | 2025-01-25 14:54 | PC.NURSE ---
Report called to Deya REN at [facility].
[2025-01-25 14:57] VITALS: BP 156/70; PULSE 78; RESP 16; TEMP 37.2; O2SAT 99
== END 2025-01-25 15:23 | disposition home or self-care (01) ==
PROVIDERS: Emergency Provider Emergency Medicine
DX: L85.3 Xerosis cutis (principal); R21 Rash and other nonspecific skin eruption
CPT/HCPCS: 99283

== ENCOUNTER 2025-02-06 09:28 | Outpatient (CLI) | payer MEDICAID, SELFPAY ==
[2025-02-06 09:42] LABS: Basophils # 0.1 K/mm3 (0-0.2); Basophils % 0.4 % (0.1-2.0); Eosinophils # 0.1 K/mm3 (0.0-0.4); Eosinophils % 0.7 % (0.1-12.0); Hematocrit 31.6 % (42.0-52.0); Hemoglobin 9.8 g/dL (14.1-18.0); Lymphocytes % 81.4 % (10-50); Mean Corpuscular Hemoglobin 29.9 pg (27.0-31.2); Mean Corpuscular Volume 96.3 fl (80-94); Mean Platelet Volume 10.3 fl (7.4-10.4); Monocytes # 0.9 K/mm3 (0.1-1.0); Monocytes % 5.4 % (1.7-9.3); Neutrophils # 1.9 K/mm3 (1.8-7.8); Platelet Count 311 K/mm3 (142-424); Red Blood Count 3.28 M/mm3 (4.60-6.20); Red Cell Distribution Width 14.2 % (11.5-17.5)
[2025-02-06 09:44] LABS: MANUAL DIFFERENTIAL MANUAL DIFFERENTIAL (MANUAL DIFF)
[2025-02-06 10:14] LABS: Anion Gap 16.1 mEq/L (5-15); Blood Urea Nitrogen 29 mg/dl (9-20); Calcium 9.9 mg/dl (8.4-10.2); Carbon Dioxide 23 mmol/L (22.0-30.0); Chloride 109 mmol/L (98-107); Estimated Glomerular Filt Rate 44 ml/min (>60); GFR (African American) 53 ML/MIN (>60); Potassium 5.1 mmoL/L (3.5-5.1); Sodium 143 mmol/L (136-145)
[2025-02-06 10:18] LABS: Glucose 34 mg/dl (74-100)
[2025-02-06 11:16] LABS: Lymphocytes % 89 % (10-50); Monocytes % 3 % (2-9); Neutrophils % 8 % (42-76); Total Cells Counted 100
[2025-02-06 11:17] LABS: Ovalocytes 1+; Platelet Estimate Normal
[2025-02-06 15:40] LABS: Hemoglobin A1C 6.1 % (4.0-6.0)
[2025-02-06 20:29] LABS: Microscopic, Urine URINE MICROSCOPIC (MICROSCOPIC)
[2025-02-06 20:35] LABS: Appearance,Urine CLEAR (Clear); Bilirubin,Urine Negative (Negative); Blood, Urine Negative (Negative); Color,Urine YELLOW (Yellow); Glucose,Urine (UA) >=1000 (Negative); Ketones,Urine Negative (Negative); Leukocyte Esterase,Urine Negative (Negative); Nitrate,Urine Negative (Negative); PH,Urine 5.5 (5.0-8.5); Protein,Urine Negative (Negative); Specific Gravity, Urine 1.025 (1.005-1.030); Urobilinogen,Urine 0.2 EU/dl (0.2)
[2025-02-06 20:57] LABS: Bacteria,Urine 1+ /lpf; RBC,Urine Occasional #/hpf (0-3); Squamous Epithelial Cell,Urine Occasional #/hpf (0-5); Uric Acid Crystals,Urine 1+ /lpf; WBC,Urine Occasional #/hpf (0-3); Yeast,Urine Occasional /lpf
== END 2025-02-06 23:59 | disposition home or self-care (01) ==
PROVIDERS: Family Medicine; PCP Nurse Practitioner Family; Visit Provider Nurse Practitioner Family
DX: E11.9 Type 2 diabetes mellitus without complications (principal); Z79.4 Long term (current) use of insulin; M25.50 Pain in unspecified joint
CPT/HCPCS: 36415; 80048; 81001; 83036; 85007; 85025; 85027; 87086

== ENCOUNTER 2025-02-06 19:54 | Outpatient (CLI) | payer MEDICAID, SELFPAY | END 2025-02-06 23:59 | disposition home or self-care (01) | LOC: LAB.DROPOF 19:55 | PROVIDERS: PCP Family Medicine; Visit Provider Family Medicine | DX: R30.0 Dysuria (principal) | CPT/HCPCS: 81001; 87086 ==

== ENCOUNTER 2025-02-08 20:39 | Observation (INO) | payer MEDICAID, SELFPAY ==
--- NOTE | 2025-02-08 20:50 | ECG_ITS ---
APPROVED REPORT Exam: Resting ECG HR:75 bpm ECG Measurements Heart Rate 75 AXES CA 170 P 40 QRSd 101 QRS -15 QT 399 T 150 QTc [address] DEVIATION AND MODERATE T-WAVE ABNORMALITY, CONSIDER LATERAL ISCHEMIA [-0.1+ mV T-WAVE IN I/aVL/V5/V6] ABNORMAL ECG UNCONFIRMED REPORT Electronically signed by : Pérez Wilder, 02/08/2025 23:53:36
--- NOTE | 2025-02-08 20:50 | [facility].EDGENADL ---
Discharge Plan Disposition Patient Disposition: Home, Self-Care Prescriptions Prescriptions: No Action insulin glargine [Lantus Solostar U-100 Insulin] 100 unit/mL (3 mL) insulin pen 75 unit SQ HS prazosin 2 mg capsule 3 mg PO HS carvedilol [Coreg] 25 mg tablet 25 mg PO BID Qty: 60 3RF Rx Instructions: must administer with a meal/food multivitamin [One-A-Day Essential] Tablet 1 tab PO DAILY dextromethorphan-guaifenesin [Robafen DM Cough] 10-100 mg/5 mL liquid 10 ml PO Q6H PRN insulin NPH and regular human 100 unit/mL (70-30) suspension 65 unit SQ DAILY venlafaxine 150 mg capsule,extended release 24hr 150 mg PO DAILY clonazepam 0.5 mg tablet 0.5 mg PO QHS Qty: 60 5RF trazodone 50 mg tablet 50 mg PO HS PRN (Reason: insomnia) Qty: 90 0RF gabapentin 100 mg capsule 100 mg PO BID Qty: 60 0RF Entresto 97-103 mg tablet 1 tab PO BID Qty: 60 3RF metformin 1,000 mg tablet 1,000 mg PO BID Qty: 180 3RF spironolactone [Aldactone] 25 mg tablet 25 mg PO DAILY Qty: 90 3RF rivaroxaban 2.5 mg tablet 2.5 mg PO BID 90 Days Qty: 180 3RF quetiapine 400 mg tablet 400 mg PO HS (DME) BD AutoShield Duo Pen Needle 30 gauge x 3/16 needle See Rx Instructions .ROUTE .MEDSUPPLY Qty: 100 Rx Instructions: As directed coQ10 (ubiquinol) [Qunol Kurtis CoQ10] 100 mg capsule 100 mg PO BID Qty: 180 3RF lactulose 10 gram/15 mL solution 30 ml PO DAILYP PRN (Reason: Constipation) Jardiance 25 mg tablet 25 mg PO DAILY Qty: 90 3RF hydrocodone-acetaminophen 5-325 mg tablet 1 tab PO BID PRN (Reason: pain) Qty: 60 0RF pantoprazole 40 MG tablet,delayed release (DR/EC) 40 mg PO DAILY polyethylene glycol 3350 17 GM powder in packet 17 g PO DAILY aspirin 81 MG tablet,chewable 81 mg PO DAILY atorvastatin 80 MG tablet 80 mg PO HS acetaminophen 325 MG tablet 650 mg PO Q6HP PRN (Reason: Mild To Moderate Pain) 0RF docusate sodium 100 MG capsule 100 mg PO BIDP PRN (Reason: Constipation) 0RF Referrals Follow up/Referrals: Edgar Sy MD [Staff Physician] - See instructions Sanjeev Parra MD [Primary Care Provider] - See instructions Activity Restrictions/Add. Instructions Additional Instructions/Restrictions: No evidence of an acute cardiopulmonary emergency found today. You have mild elevation in your potassium levels please have those rechecked within the next 24 to 48 hours. Additionally incidentally on your CAT scans you are found to have an acute bladder wall thickening please follow-up with Dr. Sy for an outpatient cystoscopy to look into this further. Clinical Impressions Clinical Impression: Chest pain, CKD (chronic kidney disease), Bladder wall thickening, Acute hyperkalemia Print Language Print Language: [place] Citizen Discharge ED Provider: Christine Wilder General Adult HPI <WANDA Chaney - Last Filed: 02/08/25 21:46> General Chief complaint: Chest Pain Stated complaint: chest pain Time Seen by Provider: 02/08/25 20:50 History of Present Illness HPI narrative: Patient presents for evaluation of chest pain. Patient is a resident of a senior care and EMS was called for report of chest pain. Patient initially told EMS he been having chest pain for just 1 hour prior to their arrival however after arrival patient is been telling me he has been having chest pain for a month. Patient does have a history of reduced ejection fraction heart failure, CVA, systolic heart failure, insulin-dependent diabetes mellitus, history of coronary artery bypass grafting coronary artery disease, history of right AKA and left BKA, morbid obesity with a BMI of 31, obstructive sleep apnea, bipolar disorder. Patient is also complaining that his head is hurting because he fell out of my chair . That apparently was not told to EMS. Patient denies any other injury or trauma. Patient is on aspirin and Xarelto. Related Data Home Medications ?Medication ?Instructions ?Recorded ?Confirmed aspirin 81 mg chewable tablet 81 mg PO DAILY HEART HEALTH 12/05/19 02/05/25 atorvastatin 80 mg tablet 80 mg PO HS Cholesterol 12/05/19 02/05/25 pantoprazole 40 mg tablet,delayed 40 mg PO DAILY Reflux/Acid reflux 12/05/19 02/05/25 release polyethylene glycol 3350 17 gram 17 g PO DAILY constipation 12/05/19 02/05/25 oral powder packet lactulose 10 gram/15 mL oral 30 ml PO DAILYP PRN Constipation 02/03/21 02/05/25 solution insulin glargine 100 unit/mL (3 75 unit SQ HS Diabetes 02/16/23 02/05/25 mL) subcutaneous pen (Lantus Solostar U-100 Insulin) multivitamin (One-A-Day Essential 1 tab PO DAILY 01/16/24 02/05/25 tablet) insulin human U-100 NPH-regulr 65 unit SQ DAILY 05/24/24 02/05/25 70-30 mix 100 unit/mL subcutaneous susp quetiapine 400 mg tablet 400 mg PO HS 08/29/24 02/05/25 dextromethorphan-guaifenesin 10 10 ml PO Q6H PRN 11/13/24 02/05/25 mg-100 mg/5 mL oral liquid (Robafen DM Cough) pen needle,diabetic dual safty 30 #100 ea 11/29/24 01/22/25 gauge x 3/16 (BD AutoShield Duo Pen Needle) prazosin 2 mg capsule 3 mg PO HS . 01/22/25 02/05/25 venlafaxine 150 mg 150 mg PO DAILY 01/22/25 02/05/25 capsule,extended release 24 hr Previous Rx's ?Medication ?Instructions ?Recorded acetaminophen 325 mg tablet 650 mg (2 x 325 mg) PO Q6HP PRN 04/02/21 Mild To Moderate Pain docusate sodium 100 mg capsule 100 mg PO BIDP PRN Constipation 04/02/21 sacubitril 97 mg-valsartan 103 mg 1 tab PO BID #60 tabs 03/08/23 tablet (Entresto) carvedilol 25 mg tablet (Coreg) 25 mg PO BID #60 tabs 06/13/23 metformin 1,000 mg tablet 1,000 mg PO BID #180 tabs 12/03/23 rivaroxaban 2.5 mg tablet 2.5 mg PO BID Blood thinner 90 02/06/24 days #180 tabs spironolactone 25 mg tablet 25 mg PO DAILY #90 tabs 02/06/24 (Aldactone) empagliflozin 25 mg tablet 25 mg PO DAILY #90 tabs 08/14/24 (Jardiance) coQ10 (ubiquinol) 100 mg capsule 100 mg PO BID #180 caps 11/13/24 (Qunol Kurtis CoQ10) hydrocodone 5 mg-acetaminophen 325 1 tab PO BID PRN pain #60 tabs 01/15/25 mg tablet clonazepam 0.5 mg tablet 0.5 mg PO QHS anxiety #60 tabs 02/06/25 gabapentin 100 mg capsule 100 mg PO BID #60 caps 02/06/25 trazodone 50 mg tablet 50 mg PO HS PRN insomnia #90 tabs 02/06/25 Allergies Allergy/AdvReac Type Severity Reaction Status Date / Time No Known Allergies Allergy Verified 02/05/25 10:06 [facility] <WANDA Chaney - Last Filed: 02/08/25 21:46> [facility] Disclaimer: The information contained in this section may have been updated after the patient was seen, as this information can be updated by other users. Medical History Colon cancer screening Cologuard April 2024, Anemia HFrEF (heart failure with reduced ejection fraction) Visual disturbance Systolic heart failure Renal artery stenosis LV dysfunction COVID-19 Below-knee amputation of left lower extremity Diabetes mellitus with diabetic neuropathy Acute kidney injury Dehiscence of amputation stump Postprocedural (acute) (chronic) kidney failure Non-pressure chronic ulcer of unspecified part of right lower leg with unspecified severity Peptic ulcer, site unspecified, unspecified as acute or chronic, without hemorrhage or perforation Chronic or unspecified duodenal ulcer with hemorrhage Acute respiratory failure with hypoxia 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 Chronic osteomyelitis of left foot Overweight (BMI 25.0-29.9) Above knee amputation of right lower extremity Postoperative wound dehiscence Hyperlipidemia Hypertension Coronary artery disease Ischemic ulcer of left foot Peripheral arterial occlusive disease Onychodystrophy Surgical History History of right above knee amputation History of left below knee amputation History of colonoscopy Status post transmetatarsal amputation of left foot History of coronary artery bypass graft Social History Smoking Status: Never smoker second hand exposure: No alcohol intake: never substance use type: denies use current occupational status: retired Travel in the last 8 weeks: None household members: other housing: senior care current occupational exposures/hazards: No caffeine: No Have you lived/traveled outside [place] in past 30 days?: No Contact w/someone who lives/traveled outside US past 30 days?: No Exposure to someone with infectious disease in past 14 days?: No Do you have a fever (greater than 100.4 F or 38 C)?: No Have you tested positive for COVID-19: No Exposed to someone with COVID-19 in past 14 days?: No Do you have a sore throat?: No Do you have a cough?: No Do you have any weakness?: No Do you have any diarrhea?: No Are you experiencing any unusual bleeding?: No Do you have any muscle aches/pain?: No Do you have any abdominal pain?: No Are you experiencing loss of taste or smell?: No Other Medical History Have you received the Flu Vaccine for this season: Yes Have you received the Pneumonia Vaccine: Yes (10/03/17) <WANDA Chaney - Last Filed: 02/08/25 21:46> ROS Obtained: Yes Systems reviewed as appropriate & no additional complaints except as documented Physical Exam <WANDA Chaney - Last Filed: 02/08/25 21:46> General General appearance: alert and in no apparent distress Respiratory Respiratory exam: Present normal lung sounds bilaterally Cardiovascular Cardiovascular exam: Present regular rate Neurological Exam Neurological exam: Present alert and oriented X3 Medical Decision Making <WANDA Chaney - Last Filed: 02/08/25 21:46> Medical Records Medical records reviewed: Yes I reviewed the patient's medical records. Screening: Per USPSTF and CDC recommendations, given the prevalence of disease in our region, it is our hospital?s policy to screen for HIV and viral Hepatitis for all patients aged 18 and over and those with ongoing risk factors. [place] Inquiry Pt receiving controlled substance: No Vital Signs: 02/08/25 20:53 02/08/25 21:32 02/08/25 22:31 Temperature 98.9 F Temperature Source Oral Pulse Rate 78 74 Pulse Rate [Apical] 74 Respiratory Rate 20 12 11 L Blood Pressure 145/71 H 112/53 L Blood Pressure [Right Arm] 157/67 H Blood Pressure Mean [Right Arm] 97 02 Sat by Pulse Oximetry 100 97 98 Oxygen Delivery Method Room Air 02/08/25 23:01 Temperature Temperature Source Pulse Rate 78 Pulse Rate [Apical] Respiratory Rate 12 Blood Pressure 107/53 L Blood Pressure [Right Arm] Blood Pressure Mean [Right Arm] 02 Sat by Pulse Oximetry 97 Oxygen Delivery Method Lab Data Lab results reviewed: Yes I reviewed the patient's lab results. Lab Results 02/08/25 21:00: VBG pH 7.39, VBG pCO2 36.4, VBG pO2 60.1 H, VBG HCO3 21.6 L, VBG Total CO2 22.7 L, VBG O2 Saturation 91.2 H, VBG Base Excess -3.4 L, VBG Lactic Acid 3.1 H 02/08/25 21:16: WBC 19.2 H, RBC 3.43 L, Hgb 10.3 L, Hct 33.5 L, MCV 97.7 H, MCH 30.0, MCHC 30.7 L, RDW 14.3, Plt Count 270, MPV 10.9 H, Neut % (Auto) 18.0 L, Lymph % (Auto) 75.3 H, Nobles % (Auto) 5.4, Eos % (Auto) 0.8, Baso % (Auto) 0.3, Neut # (Auto) 3.5, Lymph # (Auto) 14.5 H, Nobles # (Auto) 1.0, Eos # (Auto) 0.2, Baso # (Auto) 0.1, Total Counted 100, Neutrophils % (Manual) 13 L, Lymphocytes % (Manual) 76 H, Monocytes % (Manual) 7, Eosinophils % (Manual) 3, Basophils % (Manual) 1.0, Platelet Estimate Normal, Poikilocytosis 1+, Tear Drop Cells 1+, Ovalocytes 1+, Sodium 141, Potassium 5.6 H, Chloride 107, Carbon Dioxide 23, Anion Gap 16.6 H, BUN 27 H, Creatinine 2.00 H D, Estimated Creat Clear 57, Estimated GFR 34 L, Est GFR ( Amer) 41 L D, Glucose 90, Calcium 10.0, Magnesium 1.6, Total Bilirubin 0.4, AST 33, ALT 17, Alkaline Phosphatase 87, Troponin I < 0.01, NT-Pro-B Natriuret Pep 261 H, Total Protein 8.3 H, Albumin 4.7, Globulin 3.6 H, Albumin/Globulin Ratio 1.3, Lipase 64, Procalcitonin 0.078 02/08/25 21:16 02/08/25 21:16 Orders (Tests/Meds): ED MEDICATIONS Generic Name Dose Route Start Last Admin Trade Name Kennethq PRN Reason Stop Dose Admin Sodium Chloride 10 ml 02/08/25 22:14 02/08/25 22:15 Sodium Chloride 0.9% 10ml Syr (Rad Only) IV 03/10/25 22:13 10 ml NEEDED PRN Administration Maintain IV Site Sodium Zirconium Cyclosilicate 10 gm 02/08/25 23:27 Lokelma 5gm Packet PO 02/08/25 23:28 ONCE ONE Discontinued Medications Generic Name Dose Route Start Last Admin Trade Name Freq PRN Reason Stop Dose Admin Acetaminophen 1,000 mg 02/08/25 20:58 02/08/25 21:08 Acetaminophen 500mg Tab PO 02/08/25 20:59 1,000 mg ONCE ONE Administration Iopamidol 70 ml 02/08/25 22:14 02/08/25 22:15 Iopamidol-370 (76%);100ml Bottle IV 02/08/25 22:15 70 ml ONCE ONE Administration Ketorolac Tromethamine 15 mg 02/08/25 20:58 02/08/25 21:08 Ketorolac 30mg/Ml Vial IV 02/08/25 20:59 15 mg ONCE ONE Administration Sodium Chloride 50 ml 02/08/25 22:14 02/08/25 22:15 0.9 % Sodium Chloride 50 Ml Vial IV 02/08/25 22:15 50 ml ONCE ONE Administration ORDERS Category Date Time Status CT angio chest PE protocol Stat Cat Scan 02/08/25 20:[address] bony pelvis Stat Cat Scan 02/08/25 21:[address] cervical spine wo con Stat Cat Scan 02/08/25 21:[address] head/brain wo con Stat Cat Scan 02/08/25 21:[address] lumbar spine wo con Stat Cat Scan 02/08/25 21:[address] thoracic spine wo con Stat Cat Scan 02/08/25 21:00 Completed Consult to Case Management [CONS] Routine Cons 02/08/25 23:03 Active BNP [NT Pro Brain Natriuretic Pep.] Stat Lab 02/08/25 21:16 Completed CBC w/Auto Diff [Complete Blood Count Auto Diff] Stat Lab 02/08/25 21:16 Completed CMP [Comprehensive Metabolic Panel] Stat Lab 02/08/25 21:16 Completed Lipase Stat Lab 02/08/25 21:16 Completed Magnesium Stat Lab 02/08/25 21:16 Completed Procalcitonin Stat Lab 02/08/25 21:16 Completed Trop I [Troponin I] Stat Lab 02/08/25 21:16 Completed Troponin I Q3H Lab 02/08/25 23:59 Ordered Troponin I Q3H Lab 02/09/25 02:59 Ordered VBG [Venous Blood Gas] Stat RT 02/08/25 21:00 Completed HEART Score History (anamnesis): Slightly suspicious ECG: Non-specific disturbance Age: >65 years Risk factors: Atherosclerosis history Medical Decision Narrative: In summary patient is a 64-year-old male who presents to the emergency department for evaluation of chest pain and a self-reported fall out of his chair.. Patient is hemodynamically stable with a blood pressure 137/67 pulse 74 with normal sinus rhythm on the bedside monitor breathing 20 times a minute satting at 100% on room air upon arrival, afebrile at 98.9. Physical exam is remarkable for clear breath sounds without adventitious sounds or accessory muscle use or increased work of breathing, normal heart sounds S1-S2 regular rate and rhythm without murmurs's or thrills. There is no reproducible chest pain on palpation. Abdomen is distended due to obesity but soft no rebound or guarding no rigidity. Bowel sounds normal active.. Differential diagnosis includes ACS versus pneumonia versus PE versus closed head injury versus spinal fracture etc. Initial workup will be conducted with CT scan of the head and spines noncontrasted along with CTA PE protocol if his renal function permits. Initial interventions include patient is currently on aspirin and statin and Xarelto thus patient will be given only Tylenol until he is cleared. Initial workup ordered and pending at time of handoff to Dr. Wilder at 2200 hrs. <Christine Wilder MD - Last Filed: 02/08/25 23:31> Vital Signs: 02/08/25 20:53 02/08/25 21:32 02/08/25 22:31 Temperature 98.9 F Temperature Source Oral Pulse Rate 78 74 Pulse Rate [Apical] 74 Respiratory Rate 20 12 11 L Blood Pressure 145/71 H 112/53 L Blood Pressure [Right Arm] 157/67 H Blood Pressure Mean [Right Arm] 97 02 Sat by Pulse Oximetry 100 97 98 Oxygen Delivery Method Room Air 02/08/25 23:01 Temperature Temperature Source Pulse Rate 78 Pulse Rate [Apical] Respiratory Rate 12 Blood Pressure 107/53 L Blood Pressure [Right Arm] Blood Pressure Mean [Right Arm] 02 Sat by Pulse Oximetry 97 Oxygen Delivery Method Lab Data Lab Results 02/08/25 21:00: VBG pH 7.39, VBG pCO2 36.4, VBG pO2 60.1 H, VBG HCO3 21.6 L, VBG Total CO2 22.7 L, VBG O2 Saturation 91.2 H, VBG Base Excess -3.4 L, VBG Lactic Acid 3.1 H 02/08/25 21:16: WBC 19.2 H, RBC 3.43 L, Hgb 10.3 L, Hct 33.5 L, MCV 97.7 H, MCH 30.0, MCHC 30.7 L, RDW 14.3, Plt Count 270, MPV 10.9 H, Neut % (Auto) 18.0 L, Lymph % (Auto) 75.3 H, Nobles % (Auto) 5.4, Eos % (Auto) 0.8, Baso % (Auto) 0.3, Neut # (Auto) 3.5, Lymph # (Auto) 14.5 H, Nobles # (Auto) 1.0, Eos # (Auto) 0.2, Baso # (Auto) 0.1, Total Counted 100, Neutrophils % (Manual) 13 L, Lymphocytes % (Manual) 76 H, Monocytes % (Manual) 7, Eosinophils % (Manual) 3, Basophils % (Manual) 1.0, Platelet Estimate Normal, Poikilocytosis 1+, Tear Drop Cells 1+, Ovalocytes 1+, Sodium 141, Potassium 5.6 H, Chloride 107, Carbon Dioxide 23, Anion Gap 16.6 H, BUN 27 H, Creatinine 2.00 H D, Estimated Creat Clear 57, Estimated GFR 34 L, Est GFR ( Amer) 41 L D, Glucose 90, Calcium 10.0, Magnesium 1.6, Total Bilirubin 0.4, AST 33, ALT 17, Alkaline Phosphatase 87, Troponin I < 0.01, NT-Pro-B Natriuret Pep 261 H, Total Protein 8.3 H, Albumin 4.7, Globulin 3.6 H, Albumin/Globulin Ratio 1.3, Lipase 64, Procalcitonin 0.078 Orders (Tests/Meds): ED MEDICATIONS Generic Name Dose Route Start Last Admin Trade Name Freq PRN Reason Stop Dose Admin Sodium Chloride 10 ml 02/08/25 22:14 02/08/25 22:15 Sodium Chloride 0.9% 10ml Syr (Rad Only) IV 03/10/25 22:13 10 ml NEEDED PRN Administration Maintain IV Site Sodium Zirconium Cyclosilicate 10 gm 02/08/25 23:27 Lokelma 5gm Packet PO 02/08/25 23:28 ONCE ONE Discontinued Medications Generic Name Dose Route Start Last Admin Trade Name Freq PRN Reason Stop Dose Admin Acetaminophen 1,000 mg 02/08/25 20:58 02/08/25 21:08 Acetaminophen 500mg Tab PO 02/08/25 20:59 1,000 mg ONCE ONE Administration Iopamidol 70 ml 02/08/25 22:14 02/08/25 22:15 Iopamidol-370 (76%);100ml Bottle IV 02/08/25 22:15 70 ml ONCE ONE Administration Ketorolac Tromethamine 15 mg 02/08/25 20:58 02/08/25 21:08 Ketorolac 30mg/Ml Vial IV 02/08/25 20:59 15 mg ONCE ONE Administration Sodium Chloride 50 ml 02/08/25 22:14 02/08/25 22:15 0.9 % Sodium Chloride 50 Ml Vial IV 02/08/25 22:15 50 ml ONCE ONE Administration ORDERS Category Date Time Status CT angio chest PE protocol Stat Cat Scan 02/08/25 20:[address] bony pelvis Stat Cat Scan 02/08/25 21:[address] cervical spine wo con Stat Cat Scan 02/08/25 21:[address] head/brain wo con Stat Cat Scan 02/08/25 21:[address] lumbar spine wo con Stat Cat Scan 02/08/25 21:[address] thoracic spine wo con Stat Cat Scan 02/08/25 21:00 Completed Consult to Case Management [CONS] Routine Cons 02/08/25 23:03 Active BNP [NT Pro Brain Natriuretic Pep.] Stat Lab 02/08/25 21:16 Completed CBC w/Auto Diff [Complete Blood Count Auto Diff] Stat Lab 02/08/25 21:16 Completed CMP [Comprehensive Metabolic Panel] Stat Lab 02/08/25 21:16 Completed Lipase Stat Lab 02/08/25 21:16 Completed Magnesium Stat Lab 02/08/25 21:16 Completed Procalcitonin Stat Lab 02/08/25 21:16 Completed Trop I [Troponin I] Stat Lab 02/08/25 21:16 Completed Troponin I Q3H Lab 02/08/25 23:59 Ordered Troponin I Q3H Lab 02/09/25 02:59 Ordered VBG [Venous Blood Gas] Stat RT 02/08/25 21:00 Completed Medical Decision Narrative: In summary patient is a 64-year-old male who presents to the emergency department for evaluation of chest pain and a self-reported fall out of his chair.. Patient is hemodynamically stable with a blood pressure 137/67 pulse 74 with normal sinus rhythm on the bedside monitor breathing 20 times a minute satting at 100% on room air upon arrival, afebrile at 98.9. Physical exam is remarkable for clear breath sounds without adventitious sounds or accessory muscle use or increased work of breathing, normal heart sounds S1-S2 regular rate and rhythm without murmurs's or thrills. There is no reproducible chest pain on palpation. Abdomen is distended due to obesity but soft no rebound or guarding no rigidity. Bowel sounds normal active.. Differential diagnosis includes ACS versus pneumonia versus PE versus closed head injury versus spinal fracture etc. Initial workup will be conducted with CT scan of the head and spines noncontrasted along with CTA PE protocol if his renal function permits. Initial interventions include patient is currently on aspirin and statin and Xarelto thus patient will be given only Tylenol until he is cleared. Initial workup ordered and pending at time of handoff to Dr. Wilder at 2200 hrs. Reassessment 11:[address] Wilder. I reviewed patient's CT imaging and I looked at the images myself and personally interpreted them. No acute traumatic abnormalities found. I also reviewed radiology reads and overall no emergent concerning findings. There was an L2 questionable deformity but no focal tenderness in that region. Patient also had thickening of the bladder which is nonspecific and he was given a referral to urology for possible cystoscopy. Of note he does have CKD and a creatinine of 2.0. Has a potassium of 5.6 has been intermittently hyperkalemic. A dose of Lokelma was given he is in a senior care I advised that they follow this up in the next 24 to 48 hours. From a chest pain standpoint with symptoms been ongoing for 1 month troponin is negative this is not consistent with acute cardiopulmonary abnormality or emergency. Overall patient is stable from an emergency standpoint to be sent back to the senior care and was discharged in stable condition. Critical Care <WANDA Chaney - Last Filed: 02/08/25 21:46> Critical Care Time Critical Care Time: No
[2025-02-08 20:53] VITALS: BP 157/67; PULSE 74; RESP 20; TEMP 37.2; O2SAT 100; BMI 31.7
--- NOTE | 2025-02-08 20:59 | CT_ITS ---
PROCEDURE INFORMATION: Exam: CTA Chest With Contrast Exam date and time: 02/08/2025 10:05 PM Age: 64 years old Clinical indication: Pain; Chest pressure; Additional info: Chest pain TECHNIQUE: Imaging protocol: Computed tomographic angiography of the chest with contrast. Exam focused on the arteries. 3D rendering (Not supervised by radiologist): MIP and/or 3D reconstructed images were created by the technologist. Radiation optimization: All CT scans at this facility use at least one of these dose optimization techniques: automated exposure control; mA and/or kV adjustment per patient size (includes targeted exams where dose is matched to clinical indication); or iterative reconstruction. Contrast material: ISOVUE; Contrast volume: 70 ml; Contrast route: INTRAVENOUS (IV); COMPARISON: CR XR CHEST PORTABLE 04/12/2022 4:11 AM FINDINGS: Pulmonary arteries: Normal. No pulmonary emboli. Aorta: Unremarkable. No aortic aneurysm. No aortic dissection. Lungs: There are bandlike densities in the mid and lower lung zones consistent with atelectasis and/or scarring. No consolidation. No masses. Pleural spaces: Unremarkable. No pneumothorax. No pleural effusion. Heart: Unremarkable. No cardiomegaly. No pericardial effusion. Coronary arteries: There is evidence of prior CABG. Lymph nodes: Unremarkable. No enlarged lymph nodes. Bones/joints: Unremarkable. No acute fracture. Soft tissues: There is bilateral gynecomastia. IMPRESSION: 1. Bilateral atelectasis and/or scarring. 2. No pulmonary embolus or acute aortic abnormality. 3. Other nonurgent findings as noted.
--- NOTE | 2025-02-08 21:00 | CT_ITS ---
PROCEDURE INFORMATION: Exam: CT Thoracic Spine Without Contrast Exam date and time: 02/08/2025 9:55 PM Age: 64 years old Clinical indication: Injury or trauma; Fall; Other: Pain; Additional info: Trauma, critical injury suspected TECHNIQUE: Imaging protocol: Computed tomography of the thoracic spine without contrast. Radiation optimization: All CT scans at this facility use at least one of these dose optimization techniques: automated exposure control; mA and/or kV adjustment per patient size (includes targeted exams where dose is matched to clinical indication); or iterative reconstruction. COMPARISON: CT CERVICAL SPINE WO CON 02/08/2025 9:55 PM FINDINGS: Bones/joints: No acute fracture. Normal alignment. Diffuse [id number] degenerative changes. No significant disc bulge or herniation. No severe spinal canal stenosis. No significant neural foraminal narrowing. Soft tissues: Unremarkable. IMPRESSION: No acute thoracic spine fracture.
--- NOTE | 2025-02-08 21:00 | CT_ITS ---
PROCEDURE INFORMATION: Exam: CT Lumbar Spine Without Contrast Exam date and time: 02/08/2025 9:55 PM Age: 64 years old Clinical indication: Injury or trauma; Fall; Other: Pain; Additional info: Trauma, critical injury suspected TECHNIQUE: Imaging protocol: Computed tomography of the lumbar spine without contrast. Radiation optimization: All CT scans at this facility use at least one of these dose optimization techniques: automated exposure control; mA and/or kV adjustment per patient size (includes targeted exams where dose is matched to clinical indication); or iterative reconstruction. COMPARISON: CT THORACIC SPINE WO CON 02/08/2025 9:55 PM FINDINGS: Bones/joints: There is a transitional spine with partial lumbarization of S1. There is a mild superior endplate compression deformity of L2 which is age indeterminate. Severe degenerative disc disease is noted at the L4-L5 and L5-S1 levels. Severe facet arthropathy is noted from L3 through S1. There is a minimal scoliosis convex right. No significant disc bulge or herniation. There is moderate central canal stenosis at L5-S1 secondary to posterior disc osteophyte and posterior element degenerative change. No severe foraminal stenosis. Pancreas: Surgical clips are noted in the region of the pancreatic head. Vasculature: A proximal right renal artery stent is noted. Soft tissues: Unremarkable. IMPRESSION: Mild superior endplate compression deformity of L2 which is age indeterminate. Correlation with the clinical exam and mechanism of injury is recommended. Further evaluation with MR imaging could be performed as clinically indicated to determine the age of the fracture.
--- NOTE | 2025-02-08 21:00 | CT_ITS ---
PROCEDURE INFORMATION: Exam: CT Head Without Contrast Exam date and time: 02/08/2025 9:42 PM Age: 64 years old Clinical indication: Injury or trauma; Fall; Other: Pain; Additional info: Trauma, critical injury suspected TECHNIQUE: Imaging protocol: Computed tomography of the head without contrast. Radiation optimization: All CT scans at this facility use at least one of these dose optimization techniques: automated exposure control; mA and/or kV adjustment per patient size (includes targeted exams where dose is matched to clinical indication); or iterative reconstruction. COMPARISON: CT ANGIO HEAD 10/21/2023 7:40 AM FINDINGS: Brain: Cortical volume loss noted. No acute hemorrhage or obvious acute infarct. No midline shift. Basal cisterns are patent. Cerebral ventricles: No ventriculomegaly. Paranasal sinuses: Visualized sinuses are unremarkable. No fluid levels. Mastoid air cells: Visualized mastoid air cells are well aerated. Bones: Unremarkable. No acute fracture. Soft tissues: Unremarkable. IMPRESSION: No acute intracranial abnormality.
--- NOTE | 2025-02-08 21:00 | CT_ITS ---
PROCEDURE INFORMATION: Exam: CT Cervical Spine Without Contrast Exam date and time: 02/08/2025 9:55 PM Age: 64 years old Clinical indication: Injury or trauma; Fall; Other: Pain; Additional info: Trauma, critical injury suspected TECHNIQUE: Imaging protocol: Computed tomography of the cervical spine without contrast. Radiation optimization: All CT scans at this facility use at least one of these dose optimization techniques: automated exposure control; mA and/or kV adjustment per patient size (includes targeted exams where dose is matched to clinical indication); or iterative reconstruction. COMPARISON: CT ANGIO NECK 10/21/2023 7:40 AM FINDINGS: Bones: There is no acute fracture or dislocation. Degenerative disc disease noted C5-C6 and C6-C7. Left-sided neural foraminal narrowing noted at C5-C6. Lungs: Lung apices are normal. Soft tissues: Unremarkable. IMPRESSION: 1. No acute findings. 2. Additional nonacute findings, noted above
--- NOTE | 2025-02-08 21:01 | CT_ITS ---
PROCEDURE INFORMATION: Exam: CT Pelvis Without Contrast, Skeleton Exam date and time: 02/08/2025 10:01 PM Age: 64 years old Clinical indication: Injury or trauma; Fall; Other: Pain; Additional info: Trauma, critical injury suspected TECHNIQUE: Imaging protocol: Computed tomography of the pelvis without contrast. Exam focused on the skeleton. Radiation optimization: All CT scans at this facility use at least one of these dose optimization techniques: automated exposure control; mA and/or kV adjustment per patient size (includes targeted exams where dose is matched to clinical indication); or iterative reconstruction. COMPARISON: CT LUMBAR SPINE WO CON 02/08/2025 9:55 PM FINDINGS: Urinary bladder: There is irregular bladder wall thickening more prominent anteriorly. This may be secondary to underdistention however, bladder wall lesion is not entirely excluded based on this appearance. Bones/joints: There are severe degenerative changes of the lower lumbar spine. There are [id number] degenerative changes of the SI joints and hips. The SI joints, hips and pubic symphysis are normally aligned. There is no acute fracture. Soft tissues: Unremarkable. IMPRESSION: 1. No acute findings. 2. Irregular bladder wall thickening more prominent anteriorly. The findings may be secondary to underdistention however, they bladder wall lesion is not excluded and further evaluation with cystoscopy is recommended.
[2025-02-08] MEDS: ACETAMINOPHEN 500MG TAB 1000 MG PO (21:08)
[2025-02-08] MEDS: KETOROLAC 30MG/ML VIAL 15 MG IV (21:08)
[2025-02-08 21:25] LABS: Basophils # 0.1 K/mm3 (0-0.2); Basophils % 0.3 % (0.1-2.0); Eosinophils # 0.2 K/mm3 (0.0-0.4); Eosinophils % 0.8 % (0.1-12.0); Hematocrit 33.5 % (42.0-52.0); Hemoglobin 10.3 g/dL (14.1-18.0); Lymphocytes # 14.5 K/mm3 (0.7-4.5); Lymphocytes % 75.3 % (10-50); Mean Corpuscular HGB Conc 30.7 g/dL (31.8-35.4); Mean Corpuscular Volume 97.7 fl (80-94); Mean Platelet Volume 10.9 fl (7.4-10.4); Monocytes % 5.4 % (1.7-9.3); Neutrophils # 3.5 K/mm3 (1.8-7.8); Platelet Count 270 K/mm3 (142-424); Red Blood Count 3.43 M/mm3 (4.60-6.20); Red Cell Distribution Width 14.3 % (11.5-17.5); White Blood Count 19.2 K/mm3 (4.8-10.8)
[2025-02-08 21:31] LABS: Albumin Level 4.7 g/dl (3.5-5.0); Chloride 107 mmol/L (98-107); Potassium 5.6 mmoL/L (3.5-5.1); Sodium 141 mmol/L (136-145)
[2025-02-08 21:32] VITALS: BP 145/71; PULSE 78; RESP 12; O2SAT 97
[2025-02-08 21:33] LABS: MANUAL DIFFERENTIAL MANUAL DIFFERENTIAL (MANUAL DIFF)
[2025-02-08 21:34] LABS: Alanine Aminotransferase 17 U/L (12-78); Albumin/Globulin Ratio 1.3 (1.1-1.8); Alkaline Phosphatase 87 U/L (38-126); Anion Gap 16.6 mEq/L (5-15); Aspartate Amino Transferase 33 U/L (17-59); Bilirubin,Total 0.4 mg/dl (0.2-1.3); Blood Urea Nitrogen 27 mg/dl (9-20); Carbon Dioxide 23 mmol/L (22.0-30.0); Creatinine Clearance Estimated 57 mL/min (50-200); Estimated Glomerular Filt Rate 34 ml/min (>60); GFR (African American) 41 ML/MIN (>60); Globulin 3.6 g/dL (1.3-3.2); Glucose 90 mg/dl (74-100); Lipase 64 U/L (23-300); Total Protein,Serum 8.3 g/dl (6.3-8.2)
[2025-02-08 21:35] LABS: Magnesium 1.6 mg/dl (1.6-2.3)
[2025-02-08 21:43] LABS: VBG Base Excess -3.4 mmol/L (-2.4-2.3); VBG HCO3 21.6 mmol/L (23-30); VBG Oxygen Saturation 91.2 % (50-70); VBG PCO2 36.4 mmol/L (35-51); VBG PH 7.39 mmol/L (7.31-7.41); VBG PO2 60.1 mmol/L (28-40); VBG Total CO2 22.7 mmol/L (23-27)
[2025-02-08 21:44] LABS: NT Pro Brain Natriuretic Pep. 261 pg/mL (0-125)
[2025-02-08 21:46] LABS: Lactate Venous 3.1 mmol/L (0.4-2.0)
[2025-02-08 21:47] LABS: Troponin I < 0.01 ng/ml (0.00-0.034)
--- NOTE | 2025-02-08 21:49 | PC.NURSE ---
pt and bedsheets changed, pt put in gown and sat up in bed. Wet clothes placed in bag with pt label on it @ [id number]
[2025-02-08 21:54] LABS: Eosinophils % 3 % (0-3); Lymphocytes % 76 % (10-50); Monocytes % 7 % (2-9); Neutrophils % 13 % (42-76); Total Cells Counted 100
[2025-02-08 21:55] LABS: Ovalocytes 1+; Platelet Estimate Normal; Poikilocytosis 1+; Tear Drop Cells 1+
[2025-02-08 21:58] LABS: Procalcitonin 0.078 ng/mL (0.0-2.0)
[2025-02-08] MEDS: IOPAMIDOL-370 (76%);100ML BOTTLE 70 ML IV (22:15)
[2025-02-08] MEDS: SODIUM CHLORIDE 0.9% 10ML SYR (RAD ONLY) 10 ML IV (22:15)
[2025-02-08] MEDS: 0.9 % SODIUM CHLORIDE 50 ML VIAL IV (22:15)
[2025-02-08 22:31] VITALS: BP 112/53; PULSE 74; RESP 11; O2SAT 98
[2025-02-08 23:01] VITALS: BP 107/53; PULSE 78; RESP 12; O2SAT 97
[2025-02-08] MEDS: LOKELMA 5GM PACKET 10 GM PO (23:33)
[2025-02-09] VITALS (25 sets, daily range): BP systolic 94–168; BP diastolic 57–109; PULSE 70–87; RESP 9–16; TEMP 36.6–37.3; O2SAT 94–100; BMI 30.7
[2025-02-09 00:15] LABS: Troponin I < 0.01 ng/ml (0.00-0.034)
[2025-02-09 01:45] LABS: Reflex Lactic Add Lactic Reflex
--- NOTE | 2025-02-09 04:31 | PC.NURSE ---
pt resting in bed with eyes closed, depends check. Lights dimmed for pt comfort.
--- NOTE | 2025-02-09 06:31 | PC.NURSE ---
pt readjusted in bed for comfort and given warm blanket, incontinence check
--- NOTE | 2025-02-09 07:43 | PC.NURSE ---
speaking with hospitalist
[2025-02-09 08:07] LABS: Adenovirus,PCR Not Detected (NotDetected); Bordetella Pertussis Not Detected (NotDetected); Chlamydophila Pneumoniae, PCR Not Detected (NotDetected); Coronavirus 19, PCR Not Detected (NotDetected); Coronavirus 229E Not Detected (NotDetected); Coronavirus NL63 Not Detected (NotDetected); Coronavirus OC43 Not Detected (NotDetected); Coronovirus HKU1,PCR Not Detected (NotDetected); Human Metapneumovirus Not Detected (NotDetected); Influenza A, PCR Not Detected (NotDetected); Influenza AH1, 2009 Not Detected (NotDetected); Influenza AH1, PCR Not Detected (NotDetected); Influenza AH3,PCR Not Detected (NotDetected); Influenza B, PCR Not Detected (NotDetected); Mycoplasma Pneumoniae, PCR Not Detected (NotDetected); Parainfluenza 1, PCR Not Detected (NotDetected); Parainfluenza 2, PCR Not Detected (NotDetected); Parainfluenza 3, PCR Not Detected (NotDetected); Parainfluenza 4, PCR Not Detected (NotDetected); Respiratory Syncytial Virus Not Detected (NotDetected); Rhinovirus/Enterovirus Not Detected (NotDetected)
--- NOTE | 2025-02-09 08:40 | PC.NURSE ---
report called to Dulce REN
[2025-02-09] MEDS: CEFEPIME HCL 2 GM in 0.9 % SODIUM CHLORIDE 100 ML IV (08:41)
[2025-02-09] MEDS: LACTATED RINGERS 1000ML 1,000 ML 150 ML IV ×2 (08:41→14:28)
--- NOTE | 2025-02-09 09:08 | PC.NURSE ---
arrived by stretcher form ED
[2025-02-09] MEDS: ENOXAPARIN 40MG/0.4ML SYRINGE 40 MG SUBCUT (09:56)
[2025-02-09] MEDS: VANCOMYCIN/WATER FOR INJ (PEG) 1.75 GM/350 ML PIGGYBACK IV (09:57)
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
[2025-02-09 12:12] LABS: POC Glucose,Bedside 98 (70-110)
--- NOTE | 2025-02-09 14:47 | PC.NURSE ---
LOW AMPAC SCORE DUE TO PT HAVING BILATERAL LOWER EXTREMITY AMPUTATIONS
[2025-02-09 16:25] LABS: POC Glucose,Bedside 148 (70-110)
--- NOTE | 2025-02-09 18:43 | EXP.HP ---
History of Present Illness *Admission Date: 02/09/25 *Reason for visit:: Chest pain *History of present illness: Easton Hilton is a 64-year-old male with a medical history significant for CAD/CABG, HFpEF, hypertension, hyperlipidemia, type 2 diabetes, left BKA, right AKA, mood disorder who presents with midsternal chest pain. He had an unremarkable cardiac workup in the ED and was prepped for discharge but stayed overnight in the ED due to transportation delays back to nursing facility. Chest pain was also resolved. However, patient's creatinine bumped from 1.6-2.0 or 2 days, WBC 19.2, 16.6 AGAP metabolic acidosis. On my evaluation, patient states his chest pain has been on and off for months and is usually triggered by what type of food he eats. No radiation to shoulder, jaw, shortness of breath. He endorses intermittent chills and was told he has a common cold. Case discussed with ED providermade to admit patient for FAVIO and CKD, and uptrending leukocytosis. [facility] Disclaimer: The information contained in this section may have been updated after the patient was seen, as this information can be updated by other users. Medical History Colon cancer screening Cologuard April 2024, Anemia HFrEF (heart failure with reduced ejection fraction) Visual disturbance Systolic heart failure Renal artery stenosis LV dysfunction COVID-19 Below-knee amputation of left lower extremity Diabetes mellitus with diabetic neuropathy Acute kidney injury Dehiscence of amputation stump Postprocedural (acute) (chronic) kidney failure Non-pressure chronic ulcer of unspecified part of right lower leg with unspecified severity Peptic ulcer, site unspecified, unspecified as acute or chronic, without hemorrhage or perforation Chronic or unspecified duodenal ulcer with hemorrhage Acute respiratory failure with hypoxia 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 Chronic osteomyelitis of left foot Overweight (BMI 25.0-29.9) Above knee amputation of right lower extremity Postoperative wound dehiscence Hyperlipidemia Hypertension Coronary artery disease Ischemic ulcer of left foot Peripheral arterial occlusive disease Onychodystrophy Surgical History History of right above knee amputation History of left below knee amputation History of colonoscopy Status post transmetatarsal amputation of left foot History of coronary artery bypass graft Social History Smoking Status: Never smoker second hand exposure: No alcohol intake: never substance use type: denies use current occupational status: retired Travel in the last 8 weeks: None household members: other housing: [facility] current occupational exposures/hazards: No caffeine: No Have you lived/traveled outside [place] in past 30 days?: No Contact w/someone who lives/traveled outside [place] past 30 days?: No Exposure to someone with infectious disease in past 14 days?: No Do you have a fever (greater than 100.4 F or 38 C)?: No Have you tested positive for COVID-19: No Exposed to someone with COVID-19 in past 14 days?: No Do you have a sore throat?: No Do you have a cough?: No Do you have any weakness?: No Do you have any diarrhea?: No Are you experiencing any unusual bleeding?: No Do you have any muscle aches/pain?: No Do you have any abdominal pain?: No Are you experiencing loss of taste or smell?: No Other Medical History Have you received the Flu Vaccine for this season: Yes Have you received the Pneumonia Vaccine: No Meds Home Medications and Allergies Home Medications ?Medication ?Instructions ?Recorded ?Confirmed ?Type aspirin 81 mg chewable tablet 81 mg PO DAILY HEART HEALTH 12/05/19 02/09/25 History atorvastatin 80 mg tablet 80 mg PO HS Cholesterol 12/05/19 02/09/25 History pantoprazole 40 mg tablet,delayed 40 mg PO DAILY Reflux/Acid reflux 12/05/19 02/09/25 History release polyethylene glycol 3350 17 gram 17 g PO DAILYP PRN Constipation 12/05/19 02/09/25 History oral powder packet lactulose 10 gram/15 mL oral 30 ml PO DAILYP PRN Constipation 02/03/21 02/09/25 History solution acetaminophen 325 mg tablet 650 mg (2 x 325 mg) PO Q6HP PRN 04/02/21 02/09/25 Rx Mild To Moderate Pain docusate sodium 100 mg capsule 100 mg PO BIDP PRN Constipation 04/02/21 02/09/25 Rx sacubitril 97 mg-valsartan 103 mg 1 tab PO BID #60 tabs 03/08/23 02/09/25 Rx tablet (Entresto) metformin 1,000 mg tablet 1,000 mg PO BID #180 tabs 12/03/23 02/09/25 Rx multivitamin (One-A-Day Essential 1 tab PO DAILY 01/16/24 02/09/25 History tablet) rivaroxaban 2.5 mg tablet 2.5 mg PO BID Blood thinner 90 02/06/24 02/09/25 Rx days #180 tabs spironolactone 25 mg tablet 25 mg PO DAILY #90 tabs 02/06/24 02/09/25 Rx (Aldactone) insulin human U-100 NPH-regulr 65 unit SQ DAILY 05/24/24 02/09/25 History 70-30 mix 100 unit/mL subcutaneous susp empagliflozin 25 mg tablet 25 mg PO DAILY #90 tabs 08/14/24 02/09/25 Rx (Jardiance) quetiapine 400 mg tablet 400 mg PO HS 08/29/24 02/09/25 History coQ10 (ubiquinol) 100 mg capsule 100 mg PO BID #180 caps 11/13/24 02/09/25 Rx (Qunol Kurtis CoQ10) dextromethorphan-guaifenesin 10 10 ml PO Q6HP PRN Congestion 11/13/24 02/09/25 History mg-100 mg/5 mL oral liquid (Robafen DM Cough) pen needle,diabetic dual safty 30 #100 ea 11/29/24 02/09/25 History gauge x 3/16 (BD AutoShield Duo Pen Needle) venlafaxine 150 mg 150 mg PO DAILY 01/22/25 02/09/25 History capsule,extended release 24 hr gabapentin 100 mg capsule 100 mg PO BID #60 caps 02/06/25 02/09/25 Rx carvedilol 25 mg tablet (Coreg) 25 mg PO 0800,1700 02/09/25 02/09/25 History clonazepam 0.5 mg tablet 0.5 mg PO HS anxiety 02/09/25 02/09/25 History hydrocodone 5 mg-acetaminophen 325 1 tab PO BIDP PRN pain 02/09/25 02/09/25 History mg tablet prazosin 1 mg capsule 3 mg PO HS 02/09/25 02/09/25 History trazodone 50 mg tablet 50 mg PO HS insomnia 02/09/25 02/09/25 History New Prescriptions to Start Prescriptions: Allergies Allergy/AdvReac Type Severity Reaction Status Date / Time No Known Allergies Allergy Verified 02/05/25 10:06 Exam Data for Last 24 hours Vital signs and Labs for Last 24 Hours: Temp Pulse Resp BP Pulse Ox O2 Del Method 97.8 F 78 14 139/77 97 Room Air 02/09/25 16:00 02/09/25 16:00 02/09/25 16:00 02/09/25 16:00 02/09/25 16:00 02/09/25 17:00 Laboratory Results - last 24 hr 02/08/25 21:00: VBG pH 7.39, VBG pCO2 36.4, VBG pO2 60.1 H, VBG HCO3 21.6 L, VBG Total CO2 22.7 L, VBG O2 Saturation 91.2 H, VBG Base Excess -3.4 L, VBG Lactic Acid 3.1 H 02/08/25 21:16: WBC 19.2 H, RBC 3.43 L, Hgb 10.3 L, Hct 33.5 L, MCV 97.7 H, MCH 30.0, MCHC 30.7 L, RDW 14.3, Plt Count 270, MPV 10.9 H, Neut % (Auto) 18.0 L, Lymph % (Auto) 75.3 H, Cocke % (Auto) 5.4, Eos % (Auto) 0.8, Baso % (Auto) 0.3, Neut # (Auto) 3.5, Lymph # (Auto) 14.5 H, Cocke # (Auto) 1.0, Eos # (Auto) 0.2, Baso # (Auto) 0.1, Total Counted 100, Neutrophils % (Manual) 13 L, Lymphocytes % (Manual) 76 H, Monocytes % (Manual) 7, Eosinophils % (Manual) 3, Basophils % (Manual) 1.0, Platelet Estimate Normal, Poikilocytosis 1+, Tear Drop Cells 1+, Ovalocytes 1+, Sodium 141, Potassium 5.6 H, Chloride 107, Carbon Dioxide 23, Anion Gap 16.6 H, BUN 27 H, Creatinine 2.00 H D, Estimated Creat Clear 57, Estimated GFR 34 L, Est GFR ( Amer) 41 L D, Glucose 90, Calcium 10.0, Magnesium 1.6, Total Bilirubin 0.4, AST 33, ALT 17, Alkaline Phosphatase 87, Troponin I < 0.01, NT-Pro-B Natriuret Pep 261 H, Total Protein 8.3 H, Albumin 4.7, Globulin 3.6 H, Albumin/Globulin Ratio 1.3, Lipase 64, Procalcitonin 0.078 02/08/25 23:43: Troponin I < 0.01 02/09/25 07:58: Chlamy pneumoniae PCR Not detected, Adenovirus (PCR) Not detected, B. pertussis DNA (PCR) Not detected, Coronavirus OC43 (PCR) Not detected, Coronavirus HKU1 (PCR) Not detected, Coronavirus 229E (PCR) Not detected, SARS-CoV-2 (PCR) Not detected, Coronavirus NL63 (PCR) Not detected, Human Metapneumovir PCR Not detected, Influenza A (H1) PCR Not detected, Influ A (H1N1/09) PCR Not detected, Influenza A (H3) PCR Not detected, Influenza Type A (PCR) Not detected, Influenza Type B (PCR) Not detected, M. pneumoniae (PCR) Not detected, Parainfluenza 1 (PCR) Not detected, Parainfluenza 2 (PCR) Not detected, Parainfluenza 3 (PCR) Not detected, Parainfluenza 4 (PCR) Not detected, RSV (PCR) Not detected, Entero/Rhino (PCR) Not detected 02/09/25 11:50: POC Glucose 98 02/09/25 16:18: POC Glucose 148 H I & O for Last 24 hours: Intake & Output 02/06/25 02/07/25 02/08/25 02/09/25 23:59 23:59 23:59 23:59 Intake Total 595 / 595 Output Total 750 / 750 Balance -155 / -155 Weight 106.141 kg 102.71 kg Constitutional Constitutional: no acute distress, obese and chronically ill appearing *Routine HEENT Exam Head: Present normocephalic Eye: Present EOMI and PERRL ENT: Present mucous membranes moist *Routine Neck Exam Neck: Present supple; Absent lymphadenopathy *Routine Respiratory Exam Respiratory: Present CTA bilaterally *Routine Cardiovascular Exam Cardiovascular: Present RRR *Routine Abdominal Exam Abdominal: Present soft and normoactive bowel sounds; Absent tenderness *Routine Rectal Exam Rectal:: deferred *Routine Genitalia Exam Genitalia:: deferred *Routine Extremities Exam Extremities: Absent cyanosis, clubbing or edema Comments: Left BKA, right AKA. *Routine Skin Exam Skin: Present warm; Absent rash *Routine Neurological Exam Neurological: Present alert and oriented X3 Assessment and Plan *Assessment and plan (1) Chest pain: Status: Acute Category: Medical Code(s): R07.9 - Chest pain, unspecified Plan Easton Hilton is a 64-year-old male with a medical history significant for CAD/CABG, HFpEF, hypertension, hyperlipidemia, type 2 diabetes, left BKA, right AKA, mood disorder who presents with midsternal chest pain. He had an unremarkable cardiac workup in the ED and was prepped for discharge but stayed overnight in the ED due to transportation delays back to nursing facility. Chest pain was also resolved. However, patient's creatinine bumped from 1.6-2.0 or 2 days, WBC 19.2, 16.6 AGAP metabolic acidosis. On my evaluation, patient states his chest pain has been on and off for months and is usually triggered by what type of food he eats. No radiation to shoulder, jaw, shortness of breath. He endorses intermittent chills and was told he has a common cold. Case discussed with ED providermade to admit patient for FAVIO and CKD, and uptrending leukocytosis. #Chest pain #History of CABG, CAD ? Endorses intermittent midsternal chest pain with no radiation, states it is worse depending on what he eats. ? Follows with cardiology regularly, last visit November 2024. ? Troponins normal, EKG without acute ischemic changes. ? Would benefit from further ischemic workup outpatient. Will consult cardiology if patient is still here Tuesday. ? Continue aspirin, statin. #FAVIO on CKD ? Initial creatinine 2.0, baseline 1.6. ? Given IV fluid resuscitation, follow-up repeat BMP. #Leukocytosis ? WBC 19.2, lymphocytic predominant. ? Respiratory panel negative. Might be reactive from dehydration. ? Follow-up repeat CBC after fluid resuscitation, blood cultures. #HFimpEF #Hypertension ? Stable. Continue Entresto. Hold home carvedilol, spironolactone due to normal pressures for now. #Type 2 diabetes #Left BKA, right AKA ? A1c 6.1. LDSSI, ACHS glucose checks. ? Stump stable, does have left stump abrasion but no active signs of infection. #Mood disorder ? Continue home venlafaxine, quetiapine, prazosin. QTc 427. Full code DVT prophylaxis: Home Xarelto.
[2025-02-09 19:40] LABS: Basophils % 0.2 % (0.1-2.0); Eosinophils # 0.1 K/mm3 (0.0-0.4); Eosinophils % 0.6 % (0.1-12.0); Hematocrit 32.5 % (42.0-52.0); Hemoglobin 10.1 g/dL (14.1-18.0); Lymphocytes # 14.1 K/mm3 (0.7-4.5); Mean Corpuscular HGB Conc 31.1 g/dL (31.8-35.4); Mean Corpuscular Hemoglobin 29.6 pg (27.0-31.2); Mean Corpuscular Volume 95.3 fl (80-94); Mean Platelet Volume 10.1 fl (7.4-10.4); Monocytes # 0.8 K/mm3 (0.1-1.0); Monocytes % 4.4 % (1.7-9.3); Neutrophils # 2.6 K/mm3 (1.8-7.8); Neutrophils % 14.7 % (37.0-80.0); Platelet Count 321 K/mm3 (142-424); Red Blood Count 3.41 M/mm3 (4.60-6.20); Red Cell Distribution Width 14.1 % (11.5-17.5); White Blood Count 17.6 K/mm3 (4.8-10.8)
[2025-02-09 19:41] LABS: MANUAL DIFFERENTIAL MANUAL DIFFERENTIAL (MANUAL DIFF)
[2025-02-09 19:48] LABS: Chloride 108 mmol/L (98-107); Sodium 138 mmol/L (136-145)
[2025-02-09 19:50] LABS: Blood Urea Nitrogen 27 mg/dl (9-20); Creatinine Clearance Estimated 65 mL/min (50-200); Estimated Glomerular Filt Rate 41 ml/min (>60); GFR (African American) 50 ML/MIN (>60)
[2025-02-09 19:51] LABS: Alanine Aminotransferase 13 U/L (12-78); Albumin/Globulin Ratio 1.1 (1.1-1.8); Alkaline Phosphatase 82 U/L (38-126); Aspartate Amino Transferase 32 U/L (17-59); Bilirubin,Total 0.4 mg/dl (0.2-1.3); Calcium 9.5 mg/dl (8.4-10.2); Carbon Dioxide 23 mmol/L (22.0-30.0); Globulin 3.7 g/dL (1.3-3.2); Glucose 115 mg/dl (74-100); Total Protein,Serum 7.7 g/dl (6.3-8.2)
--- NOTE | 2025-02-09 19:59 | PC.NURSE ---
critical K of 6.0 reported to hospitalist
[2025-02-09] MEDS: GABAPENTIN 100MG CAPSULE 100 MG PO (20:06)
[2025-02-09] MEDS: TRAZODONE 50MG TABLET 50 MG PO (20:06)
[2025-02-09] MEDS: ATORVASTATIN 40MG TABLET 40 MG PO (20:06)
[2025-02-09] MEDS: PANTOPRAZOLE 40MG TABLET 40 MG PO (20:07)
[2025-02-09] MEDS: PATIENT'S OWN HOME MEDICATION (Metformin 1,000 mg tablet) 1000 EACH PO (20:08)
[2025-02-09] MEDS: QUETIAPINE 400 MG 400 EACH PO (20:09)
[2025-02-09] MEDS: LOKELMA 5GM PACKET 10 GM PO (20:12)
[2025-02-09 20:14] LABS: Eosinophils % 1 % (0-3); Lymphocytes % 78 % (10-50); Monocytes % 2 % (2-9); Neutrophils % 15 % (42-76); Platelet Estimate Normal; RBC Morphology Normal; Total Cells Counted 100
[2025-02-09 20:20] LABS: POC Glucose,Bedside 97 (70-110)
--- NOTE | 2025-02-09 22:03 | ECG_ITS ---
APPROVED REPORT Exam: Resting ECG HR:80 bpm ECG Measurements Heart Rate 80 AXES MI 169 P 57 QRSd 93 QRS -1 QT 383 T 146 QTc 419 Conclusion SINUS RHYTHM Old anteroseptal changes MODERATE T-WAVE ABNORMALITY, CONSIDER LATERAL ISCHEMIA [-0.1+ mV T-WAVE IN I/aVL/V5/V6] ABNORMAL ECG UNCONFIRMED REPORT Electronically signed by : Sanjeev Avila MD 02/10/2025 08:08:22
[2025-02-09] MEDS: DEXTROSE 50% 50ML SYRINGE (CRASH CART) 50 ML IVP (22:15)
[2025-02-09] MEDS: INSULIN HUMAN REGULAR 100 UNITS/ML 10ML VIAL 10 UNIT IVP (22:15)
--- NOTE | 2025-02-09 22:50 | PC.NURSE ---
administered d50 and regular insulin per faby r/t hyperkalemia. pre admin glucose was 98. post admin glucose was 177.
[2025-02-09 22:57] LABS: POC Glucose,Bedside 177 (70-110)
[2025-02-09 23:04] LABS: Chloride 109 mmol/L (98-107); Potassium 4.7 mmoL/L (3.5-5.1); Sodium 139 mmol/L (136-145)
[2025-02-09 23:07] LABS: Anion Gap 12.7 mEq/L (5-15); Blood Urea Nitrogen 26 mg/dl (9-20); Calcium 9.3 mg/dl (8.4-10.2); Carbon Dioxide 22 mmol/L (22.0-30.0); Creatinine Clearance Estimated 69 mL/min (50-200); Estimated Glomerular Filt Rate 44 ml/min (>60); GFR (African American) 53 ML/MIN (>60); Glucose 174 mg/dl (74-100)
[2025-02-10] VITALS (7 sets, daily range): BP systolic 104–150; BP diastolic 61–90; PULSE 75–87; RESP 14–17; TEMP 36.7–37.1; O2SAT 94–98; BMI 30.6
[2025-02-10 06:10] LABS: POC Glucose,Bedside 77 (70-110)
[2025-02-10 06:14] LABS: Basophils # 0.1 K/mm3 (0-0.2); Basophils % 0.3 % (0.1-2.0); Eosinophils # 0.1 K/mm3 (0.0-0.4); Eosinophils % 0.7 % (0.1-12.0); Hematocrit 31.1 % (42.0-52.0); Hemoglobin 9.8 g/dL (14.1-18.0); Lymphocytes # 13.7 K/mm3 (0.7-4.5); Lymphocytes % 78.8 % (10-50); Mean Corpuscular HGB Conc 31.5 g/dL (31.8-35.4); Mean Corpuscular Hemoglobin 29.8 pg (27.0-31.2); Mean Corpuscular Volume 94.5 fl (80-94); Mean Platelet Volume 10.1 fl (7.4-10.4); Monocytes # 0.9 K/mm3 (0.1-1.0); Monocytes % 5.2 % (1.7-9.3); Neutrophils # 2.6 K/mm3 (1.8-7.8); Platelet Count 306 K/mm3 (142-424); Red Blood Count 3.29 M/mm3 (4.60-6.20); Red Cell Distribution Width 13.9 % (11.5-17.5); White Blood Count 17.4 K/mm3 (4.8-10.8)
[2025-02-10 06:16] LABS: Albumin Level 3.6 g/dl (3.5-5.0); Chloride 110 mmol/L (98-107); Sodium 140 mmol/L (136-145)
[2025-02-10 06:19] LABS: Alanine Aminotransferase 12 U/L (12-78); Albumin/Globulin Ratio 1.1 (1.1-1.8); Aspartate Amino Transferase 27 U/L (17-59); Blood Urea Nitrogen 22 mg/dl (9-20); Creatinine Clearance Estimated 73 mL/min (50-200); Estimated Glomerular Filt Rate 47 ml/min (>60); GFR (African American) 57 ML/MIN (>60); Globulin 3.3 g/dL (1.3-3.2); Neutrophils % 14.9 % (37.0-80.0); Total Protein,Serum 6.9 g/dl (6.3-8.2)
[2025-02-10 06:20] LABS: Alkaline Phosphatase 79 U/L (38-126); Bilirubin,Total 0.4 mg/dl (0.2-1.3); Calcium 9.4 mg/dl (8.4-10.2); Glucose 78 mg/dl (74-100); Magnesium 1.4 mg/dl (1.6-2.3)
[2025-02-10 06:21] LABS: MANUAL DIFFERENTIAL MANUAL DIFFERENTIAL (MANUAL DIFF)
[2025-02-10 06:25] LABS: C-Reactive Protein 5.4 mg/L (0-4)
[2025-02-10 07:09] LABS: Erythrocyte Sedimentation Rate 103 mm/hr (0-20)
[2025-02-10 07:29] LABS: Eosinophils % 1 % (0-3); Lymphocytes % 52 % (10-50); Monocytes % 6 % (2-9); Neutrophils % 41 % (42-76); Total Cells Counted 100
[2025-02-10 07:34] LABS: Platelet Estimate Normal; RBC Morphology Normal
[2025-02-10] MEDS: MAGNESIUM SULFATE IN WATER 2 GM/50 ML PIGGYBACK IV ×3 (08:17→09:55)
[2025-02-10] MEDS: ASPIRIN 81MG CHEWABLE TABLET 81 MG PO (09:05)
[2025-02-10] MEDS: VENLAFAXINE XR 75MG CAPSULE 150 MG PO (09:05)
[2025-02-10] MEDS: SACUBITRIL/VALSARTAN 24-26MG TABLET 4 EACH PO ×2 (09:05→20:24)
[2025-02-10] MEDS: GABAPENTIN 100MG CAPSULE 100 MG PO ×2 (09:05→20:26)
[2025-02-10] MEDS: METFORMIN 500MG TABLET 1000 MG PO ×2 (09:05→16:57)
[2025-02-10] MEDS: RIVAROXABAN 2.5MG TABLET 2.5 MG PO ×2 (09:06→20:26)
[2025-02-10] MEDS: LOKELMA 5GM PACKET 10 GM PO (09:09)
[2025-02-10 09:48] LABS: Carbon Dioxide 23 mmol/L (22.0-30.0)
[2025-02-10 11:34] LABS: Chloride 108 mmol/L (98-107); Potassium 5.3 mmoL/L (3.5-5.1); Sodium 139 mmol/L (136-145)
[2025-02-10 11:37] LABS: Anion Gap 15.3 mEq/L (5-15); Blood Urea Nitrogen 18 mg/dl (9-20); Calcium 9.8 mg/dl (8.4-10.2); Carbon Dioxide 21 mmol/L (22.0-30.0); Creatinine Clearance Estimated 73 mL/min (50-200); Estimated Glomerular Filt Rate 47 ml/min (>60); GFR (African American) 57 ML/MIN (>60); Glucose 91 mg/dl (74-100)
[2025-02-10 15:07] LABS: Basophils % 0.2 % (0.1-2.0); Eosinophils # 0.1 K/mm3 (0.0-0.4); Eosinophils % 0.6 % (0.1-12.0); Hematocrit 33.2 % (42.0-52.0); Hemoglobin 10.4 g/dL (14.1-18.0); Lymphocytes # 12.5 K/mm3 (0.7-4.5); Lymphocytes % 77.1 % (10-50); Mean Corpuscular HGB Conc 31.3 g/dL (31.8-35.4); Mean Corpuscular Hemoglobin 30.1 pg (27.0-31.2); Mean Platelet Volume 9.8 fl (7.4-10.4); Monocytes # 0.9 K/mm3 (0.1-1.0); Monocytes % 5.6 % (1.7-9.3); Neutrophils # 2.7 K/mm3 (1.8-7.8); Neutrophils % 16.3 % (37.0-80.0); Platelet Count 321 K/mm3 (142-424); Red Blood Count 3.46 M/mm3 (4.60-6.20); Red Cell Distribution Width 14.1 % (11.5-17.5); White Blood Count 16.2 K/mm3 (4.8-10.8)
[2025-02-10 15:45] LABS: MANUAL DIFFERENTIAL MANUAL DIFFERENTIAL (MANUAL DIFF)
[2025-02-10 17:38] LABS: Eosinophils % 1 % (0-3); Lymphocytes % 64 % (10-50); Monocytes % 9 % (2-9); Neutrophils % 24 % (42-76); Total Cells Counted 100
[2025-02-10 17:48] LABS: Anisocytosis 1+; Macrocytosis 1+; Platelet Estimate Normal
[2025-02-10 17:49] LABS: Elliptocytes 1+; Hypochromasia 1+; Poikilocytosis 1+; Rouleaux 1+
[2025-02-10 17:51] LABS: Microscopic, Urine URINE MICROSCOPIC (MICROSCOPIC)
[2025-02-10 18:07] LABS: Appearance,Urine CLEAR (Clear); Bilirubin,Urine Negative (Negative); Blood, Urine Negative (Negative); Color,Urine YELLOW (Yellow); Glucose,Urine (UA) 3+ (Negative); Ketones,Urine Negative (Negative); Leukocyte Esterase,Urine Negative (Negative); Nitrate,Urine Negative (Negative); Protein,Urine Negative (Negative); Urobilinogen,Urine 0.2 EU/dl (0.2)
[2025-02-10 18:20] LABS: Bacteria,Urine Trace /lpf; WBC,Urine Occasional #/hpf (0-3)
--- NOTE | 2025-02-10 18:25 | EXP.PN ---
Subjective *Date: 02/10/25 *Time: 18:25 Interval history: Patient feeling better today after fluid resuscitation. Leukocytosis improving, follow-up CT abdomen/pelvis and peripheral smear. Exam Data for Last 24 hours Vital signs and Labs for Last 24 Hours: Temp Pulse Resp BP Pulse Ox O2 Del Method 98.2 F 80 14 119/66 98 Room Air 02/10/25 16:00 02/10/25 16:00 02/10/25 16:00 02/10/25 16:00 02/10/25 16:00 02/10/25 17:00 Laboratory Results - last 24 hr 02/09/25 19:30: WBC 17.6 H, RBC 3.41 L, Hgb 10.1 L, Hct 32.5 L, MCV 95.3 H, MCH 29.6, MCHC 31.1 L, RDW 14.1, Plt Count 321, MPV 10.1, Neut % (Auto) 14.7 L, Lymph % (Auto) 80.0 H, [place] % (Auto) 4.4, Eos % (Auto) 0.6, Baso % (Auto) 0.2, Neut # (Auto) 2.6, Lymph # (Auto) 14.1 H, [place] # (Auto) 0.8, Eos # (Auto) 0.1, Baso # (Auto) 0.0, Total Counted 100, Neutrophils % (Manual) 15 L, Lymphocytes % (Manual) 78 H, Atypical Lymphs % 4.0, Monocytes % (Manual) 2, Eosinophils % (Manual) 1, Platelet Estimate Normal, RBC Morphology Normal, Sodium 138, Potassium 6.0 H, Chloride 108 H, Carbon Dioxide 23, Anion Gap 13.0, BUN 27 H, Creatinine 1.70 H, Estimated Creat Clear 65, Estimated GFR 41 L, Est GFR ( Amer) 50 L D, Glucose 115 H D, Calcium 9.5, Total Bilirubin 0.4, AST 32, ALT 13, Alkaline Phosphatase 82, Total Protein 7.7, Albumin 4.0 D, Globulin 3.7 H, Albumin/Globulin Ratio 1.1 02/09/25 20:04: POC Glucose 97 02/09/25 22:45: POC Glucose 177 H 02/09/25 22:50: Sodium 139, Potassium 4.7 D, Chloride 109 H, Carbon Dioxide 22, Anion Gap 12.7, BUN 26 H, Creatinine 1.60 H, Estimated Creat Clear 69, Estimated GFR 44 L, Est GFR ( Amer) 53 L, Glucose 174 H D, Calcium 9.3 02/10/25 06:00: WBC 17.4 H, RBC 3.29 L, Hgb 9.8 L, Hct 31.1 L, MCV 94.5 H, MCH 29.8, MCHC 31.5 L, RDW 13.9, Plt Count 306, MPV 10.1, Neut % (Auto) 14.9 L, Lymph % (Auto) 78.8 H, [place] % (Auto) 5.2, Eos % (Auto) 0.7, Baso % (Auto) 0.3, Neut # (Auto) 2.6, Lymph # (Auto) 13.7 H, [place] # (Auto) 0.9, Eos # (Auto) 0.1, Baso # (Auto) 0.1, Total Counted 100, Neutrophils % (Manual) 41 L, Lymphocytes % (Manual) 52 H, Monocytes % (Manual) 6, Eosinophils % (Manual) 1, Platelet Estimate Normal, RBC Morphology Normal, ESR 103 H, Sodium 140, Potassium 5.0, Chloride 110 H, Carbon Dioxide 23, Anion Gap 12.0, BUN 22 H, Creatinine 1.50 H, Estimated Creat Clear 73, Estimated GFR 47 L, Est GFR ( Amer) 57 L, Glucose 78 D, Calcium 9.4, Magnesium 1.4 L D, Total Bilirubin 0.4, AST 27, ALT 12, Alkaline Phosphatase 79, C-Reactive Protein 5.4 H, Total Protein 6.9, Albumin 3.6, Globulin 3.3 H, Albumin/Globulin Ratio 1.1 02/10/25 06:03: POC Glucose 77 02/10/25 11:05: Sodium 139, Potassium 5.3 H, Chloride 108 H, Carbon Dioxide 21 L, Anion Gap 15.3 H, BUN 18, Creatinine 1.50 H, Estimated Creat Clear 73, Estimated GFR 47 L, Est GFR ( Amer) 57 L, Glucose 91, Calcium 9.8 02/10/25 15:00: WBC 16.2 H, RBC 3.46 L, Hgb 10.4 L, Hct 33.2 L, MCV 96.0 H, MCH 30.1, MCHC 31.3 L, RDW 14.1, Plt Count 321, MPV 9.8, Neut % (Auto) 16.3 L, Lymph % (Auto) 77.1 H, [place] % (Auto) 5.6, Eos % (Auto) 0.6, Baso % (Auto) 0.2, Neut # (Auto) 2.7, Lymph # (Auto) 12.5 H, [place] # (Auto) 0.9, Eos # (Auto) 0.1, Baso # (Auto) 0.0, Total Counted 100, Neutrophils % (Manual) 24 L, Lymphocytes % (Manual) 64 H, Monocytes % (Manual) 9, Eosinophils % (Manual) 1, Blast Cells % 2.0, Platelet Estimate Normal, RBC Morphology , Hypochromasia 1+, Poikilocytosis 1+, Anisocytosis 1+, Macrocytosis 1+, Elliptocytes 1+, Rouleaux 1+ 02/10/25 16:50: Urine Color Yellow, Urine Appearance Clear, Urine pH 6.0, Ur Specific [place] 1.020, Urine Protein Negative, Urine Glucose (UA) 3+, Urine Ketones Negative, Urine Blood Negative, Urine Nitrate Negative, Urine Bilirubin Negative, Urine Urobilinogen 0.2, Ur Leukocyte Esterase Negative, Urine RBC None, Urine WBC Occasional, Ur Squamous Epith Cells None, Urine Bacteria Trace I & O for Last 24 hours: Intake & Output 02/07/25 02/08/25 02/09/25 02/10/25 23:59 23:59 23:59 23:59 Intake Total 595 / 625 Output Total 1650 / 1650 Balance -1055 / -1025 Weight 106.141 kg 102.71 kg 102.512 kg Microbiology Reports for the Last 24 Hours: Microbiology 02/09/25 08:04 Blood Blood Culture - Preliminary NO GROWTH AFTER 24 HOURS Constitutional Constitutional: no acute distress *Routine HEENT Exam Head: Present normocephalic Eye: Present EOMI and PERRL ENT: Present mucous membranes moist *Routine Neck Exam Neck: Present supple; Absent lymphadenopathy *Routine Respiratory Exam Respiratory: Present CTA bilaterally *Routine Cardiovascular Exam Cardiovascular: Present RRR *Routine Abdominal Exam Abdominal: Present soft and normoactive bowel sounds; Absent tenderness *Routine Extremities Exam Extremities: Absent cyanosis, clubbing or edema Comments: Left BKA, right AKA. *Routine Skin Exam Skin: Present warm; Absent rash *Routine Neurological Exam Neurological: Present alert and oriented X3 Assessment and Plan *Assessment and plan (1) Chest pain: Status: Acute Category: Medical Code(s): R07.9 - Chest pain, unspecified Plan Easton Hilton is a 64-year-old male with a medical history significant for CAD/CABG, HFpEF, hypertension, hyperlipidemia, type 2 diabetes, left BKA, right AKA, mood disorder who presents with midsternal chest pain. He had an unremarkable cardiac workup in the ED and was prepped for discharge but stayed overnight in the ED due to transportation delays back to nursing facility. Chest pain was also resolved. However, patient's creatinine bumped from 1.6-2.0 or 2 days, WBC 19.2, 16.6 AGAP metabolic acidosis. On my evaluation, patient states his chest pain has been on and off for months and is usually triggered by what type of food he eats. No radiation to shoulder, jaw, shortness of breath. He endorses intermittent chills and was told he has a common cold. Case discussed with ED providermade to admit patient for FAVIO and CKD, and uptrending leukocytosis. #Leukocytosis ? Initial WBC 19.2, lymphocytic predominant. Improving to 16.2 today. ? Respiratory panel negative. Might be reactive from dehydration. ? No signs of infection at this time. UA, blood cultures, CTA chest normal. ? Cannot rule out malignancy, follow-up peripheral smear. #Chest pain #History of CABG, CAD ? Endorses intermittent midsternal chest pain with no radiation, states it is worse depending on what he eats. ? Follows with cardiology regularly, last visit November 2024. ? Troponins normal, EKG without acute ischemic changes. ? May benefit from further ischemic workup outpatient. Will consult cardiology if patient is still here Tuesday. ? Continue aspirin, statin. #FAVIO on CKD ? Initial creatinine 2.0, baseline 1.6. ? Improved to creatinine 1.5 after IV fluid resuscitation. #HFimpEF #Hypertension ? Stable. Continue Entresto. Hold home carvedilol, spironolactone due to normal pressures for now. #Type 2 diabetes #Left BKA, right AKA ? A1c 6.1. LDSSI, ACHS glucose checks. ? Stumps stable, does have left stump abrasion but no active signs of infection. #Mood disorder ? Continue home venlafaxine, quetiapine, prazosin. QTc 427. Full code DVT prophylaxis: Home Xarelto.
--- NOTE | 2025-02-10 18:28 | CT_ITS ---
PROCEDURE INFORMATION: Exam: CT Abdomen And Pelvis With Contrast Exam date and time: 02/10/2025 7:47 PM Age: 64 years old Clinical indication: Other: Sepsis work up; Additional info: Sepsis workup TECHNIQUE: Imaging protocol: Computed tomography of the abdomen and pelvis with contrast. Radiation optimization: All CT scans at this facility use at least one of these dose optimization techniques: automated exposure control; mA and/or kV adjustment per patient size (includes targeted exams where dose is matched to clinical indication); or iterative reconstruction. Contrast material: ISOVUE; Contrast volume: 75 ml; Contrast route: IV; COMPARISON: CT BONY PELVIS 02/08/2025 10:01 PM FINDINGS: Lungs: Bibasilar parenchymal bands compatible with subsegmental atelectasis. Liver: Fatty liver changes. Liver otherwise unremarkable. Gallbladder and biliary ducts: Normal. No calcified stones. No ductal dilation. Pancreas: Surgical clips in the pancreatic head region redemonstrated. Pancreas otherwise unremarkable. Spleen: Normal. No splenomegaly. Adrenal glands: Normal. No mass. Kidneys and ureters: Subcentimeter low-density lesion anterior mid right kidney too small to characterize but likely cyst. No follow-up advised. Multifocal scarring left kidney. Kidneys and ureters otherwise unremarkable with no obstructing stones or uropathy. Stomach and bowel: Moderate amounts of fecal material noted throughout the colon. There is peripheral air noted along the margin of the mid ascending colon centered on axial image 62 of series 3. GI tract structures otherwise unremarkable with no evident wall thickening allowing for incomplete distention. Appendix: Appendix is normal. No evidence of appendicitis. Intraperitoneal space: Unremarkable. No free air. No significant fluid collection. Vasculature: Unremarkable. No abdominal aortic aneurysm. Lymph nodes: Unremarkable. No enlarged lymph nodes. Urinary bladder: Unremarkable as visualized. Reproductive: Unremarkable as visualized. Bones/joints: Unremarkable. No acute fracture. Soft tissues: Unremarkable. IMPRESSION: 1. No definite acute intra-abdominal abnormalities. 2. Moderate amount of fecal material suggesting constipation. 3. Mild air noted along the inner margin of the wall of the ascending colon favored to represent artifact trapped between the wall of the colon and fecal material. The possibility this might reflect early pneumatosis suggesting bowel wall necrosis can not be entirely excluded in the proper clinical setting. Finding can be correlated clinically. Consider short-term follow-up CT within 24 hours to ensure stability or assess for progression especially if persistent or worsening clinical findings. COMMENTS: Consistent with the [employer]'s Incidental Findings Committee white paper (J Am Ken Radiol 2018): Any incidental renal lesion less than 1 cm or classified as too small to characterize, or any incidental cystic renal lesion characterized as simple-appearing, is likely benign. No follow-up imaging is recommended for these lesions per consensus recommendations based on imaging criteria.
--- NOTE | 2025-02-10 19:41 | PC.NURSE ---
Patient left floor with staff for CT at 19:37.
--- NOTE | 2025-02-10 20:01 | PC.NURSE ---
Patient arrived back to floor 20:01.
[2025-02-10] MEDS: PRAZOSIN 1MG CAP 3 MG PO (20:25)
[2025-02-10] MEDS: QUETIAPINE 100MG TABLET 400 MG PO (20:25)
[2025-02-10] MEDS: ATORVASTATIN 40MG TABLET 40 MG PO (20:26)
[2025-02-10] MEDS: PANTOPRAZOLE 40MG TABLET 40 MG PO (20:26)
[2025-02-10] MEDS: TRAZODONE 50MG TABLET 50 MG PO (20:26)
[2025-02-10 20:38] LABS: POC Glucose,Bedside 91 (70-110)
[2025-02-10 22:13] LABS: Lactic Acid 2.3 mmol/L (0.7-2.1)
[2025-02-10] MEDS: ONDANSETRON 4MG/2ML VIAL 4 MG IV (22:16)
[2025-02-10] MEDS: LACTATED RINGERS 1000ML 1,000 ML 100 ML IV (22:40)
[2025-02-10] MEDS: PIPERCILLIN/TAZO 3.375 GM in 0.9 % SODIUM CHLORIDE 50 ML IV (22:40)
[2025-02-11] VITALS: BP 96/60; PULSE 75; PULSE 84; RESP 16; TEMP 36.8; O2SAT 93
[2025-02-11 01:31] LABS: Lactic Acid 2.5 mmol/L (0.7-2.1)
--- NOTE | 2025-02-11 03:11 | PC.NURSE ---
Pt resting in bed with eyes closed at this time. Respirations even and unlabored. Pt went down for CT at beginning of shift and was returned safely to his room. Alert and oriented. Denies pain. Administered zofran for nausea. Bed is low, locked, and call light is in reach.
[2025-02-11 04:00] VITALS: BP 127/68; PULSE 70; PULSE 74; RESP 17; TEMP 36.6; O2SAT 98; BMI 30.7
[2025-02-11] MEDS: PIPERCILLIN/TAZO 3.375 GM in 0.9 % SODIUM CHLORIDE 50 ML IV (05:18)
[2025-02-11 05:23] LABS: Reflex Lactic Add Lactic Reflex
[2025-02-11 05:49] LABS: Basophils # 0.1 K/mm3 (0-0.2); Basophils % 0.4 % (0.1-2.0); Eosinophils # 0.1 K/mm3 (0.0-0.4); Eosinophils % 0.5 % (0.1-12.0); Hematocrit 30.8 % (42.0-52.0); Hemoglobin 9.6 g/dL (14.1-18.0); Lymphocytes # 12.9 K/mm3 (0.7-4.5); Lymphocytes % 77.6 % (10-50); Mean Corpuscular HGB Conc 31.2 g/dL (31.8-35.4); Mean Corpuscular Volume 96.3 fl (80-94); Mean Platelet Volume 9.9 fl (7.4-10.4); Monocytes % 5.9 % (1.7-9.3); Neutrophils # 2.6 K/mm3 (1.8-7.8); Neutrophils % 15.5 % (37.0-80.0); Platelet Count 294 K/mm3 (142-424); Red Cell Distribution Width 14.1 % (11.5-17.5); White Blood Count 16.6 K/mm3 (4.8-10.8)
[2025-02-11 05:51] LABS: MANUAL DIFFERENTIAL MANUAL DIFFERENTIAL (MANUAL DIFF)
[2025-02-11 05:58] LABS: Albumin Level 3.8 g/dl (3.5-5.0); Chloride 108 mmol/L (98-107)
[2025-02-11 05:59] LABS: Potassium 5.6 mmoL/L (3.5-5.1); Sodium 139 mmol/L (136-145)
[2025-02-11 06:01] LABS: Alanine Aminotransferase 15 U/L (12-78); Albumin/Globulin Ratio 1.3 (1.1-1.8); Anion Gap 13.6 mEq/L (5-15); Aspartate Amino Transferase 29 U/L (17-59); Blood Urea Nitrogen 23 mg/dl (9-20); Carbon Dioxide 23 mmol/L (22.0-30.0); Creatinine Clearance Estimated 53 mL/min (50-200); Estimated Glomerular Filt Rate 32 ml/min (>60); GFR (African American) 39 ML/MIN (>60); Globulin 2.9 g/dL (1.3-3.2); Total Protein,Serum 6.7 g/dl (6.3-8.2)
[2025-02-11 06:02] LABS: Alkaline Phosphatase 77 U/L (38-126); Bilirubin,Total 0.4 mg/dl (0.2-1.3); Calcium 8.9 mg/dl (8.4-10.2); Glucose 95 mg/dl (74-100); Magnesium 2.4 mg/dl (1.6-2.3)
[2025-02-11 06:04] LABS: Lactic Acid Follow Up (RFLX 1) 2.1 mmol/L (0.7-2.1)
[2025-02-11 06:07] LABS: C-Reactive Protein 4.5 mg/L (0-4)
[2025-02-11 06:17] LABS: Erythrocyte Sedimentation Rate 68 mm/hr (0-20)
[2025-02-11 06:21] LABS: Lymphocytes % 75 % (10-50); Monocytes % 4 % (2-9); Neutrophils % 21 % (42-76); Total Cells Counted 100
[2025-02-11 06:22] LABS: Anisocytosis 1+; Elliptocytes 1+; Platelet Estimate Normal; Poikilocytosis 1+
--- NOTE | 2025-02-11 06:57 | P.CONS_ITS ---
History of Present Illness *Admission Date: 02/09/25 *Reason for visit:: Abnormal CT scan *History of present illness: 64-year-old male with history of CAD/CABG, HFpEF, hypertension, hyperlipidemia, type 2 diabetes, left BKA, right AKA, mood disorder who presented with midsternal chest pain on 02/09/2025. He had an unremarkable cardiac workup in the ED and was prepped for discharge but stayed overnight in the ED due to transportation delays back to nursing facility. Chest pain was also resolved. However, patient's creatinine bumped from 1.6-2.0 or 2 days, WBC 19.2, 16.6 AGAP metabolic acidosis. Patient states his chest pain has been on and off for months and is usually triggered by what type of food he eats. He was admitted due to chronic kidney disease and leukocytosis. Due to leukocytosis he underwent CT scan of the abdomen with IV contrast on 02/10/2025. This revealed findings of no acute intra-abdominal process. There was a moderate amount of fecal material suggesting constipation. There was mild air noted along the inner margin of the wall of the ascending colon favored to represent artifact trapped between the wall of the colon and fecal material. The possibility this might reflect early pneumatosis suggesting bowel wall necrosis cannot be entirely excluded in the proper clinical setting. Due to this reading surgical consultation was obtained. [facility] Disclaimer: The information contained in this section may have been updated after the patient was seen, as this information can be updated by other users. Medical History Colon cancer screening Cologuard April 2024, Anemia HFrEF (heart failure with reduced ejection fraction) Visual disturbance Systolic heart failure Renal artery stenosis LV dysfunction COVID-19 Below-knee amputation of left lower extremity Diabetes mellitus with diabetic neuropathy Acute kidney injury Dehiscence of amputation stump Postprocedural (acute) (chronic) kidney failure Non-pressure chronic ulcer of unspecified part of right lower leg with unspecified severity Peptic ulcer, site unspecified, unspecified as acute or chronic, without hemorrhage or perforation Chronic or unspecified duodenal ulcer with hemorrhage Acute respiratory failure with hypoxia 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 Chronic osteomyelitis of left foot Overweight (BMI 25.0-29.9) Above knee amputation of right lower extremity Postoperative wound dehiscence Hyperlipidemia Hypertension Coronary artery disease Ischemic ulcer of left foot Peripheral arterial occlusive disease Onychodystrophy Surgical History History of right above knee amputation History of left below knee amputation History of colonoscopy Status post transmetatarsal amputation of left foot History of coronary artery bypass graft Social History Smoking Status: Never smoker second hand exposure: No alcohol intake: never substance use type: denies use current occupational status: retired Travel in the last 8 weeks: None household members: other housing: longterm current occupational exposures/hazards: No caffeine: No Have you lived/traveled outside [place] in past 30 days?: No Contact w/someone who lives/traveled outside [place] past 30 days?: No Exposure to someone with infectious disease in past 14 days?: No Do you have a fever (greater than 100.4 F or 38 C)?: No Have you tested positive for COVID-19: No Exposed to someone with COVID-19 in past 14 days?: No Do you have a sore throat?: No Do you have a cough?: No Do you have any weakness?: No Do you have any diarrhea?: No Are you experiencing any unusual bleeding?: No Do you have any muscle aches/pain?: No Do you have any abdominal pain?: No Are you experiencing loss of taste or smell?: No Meds Home Medications and Allergies Home Medications ?Medication ?Instructions ?Recorded ?Confirmed ?Type aspirin 81 mg chewable tablet 81 mg PO DAILY HEART HEALTH 12/05/19 02/09/25 History atorvastatin 80 mg tablet 80 mg PO HS Cholesterol 12/05/19 02/09/25 History pantoprazole 40 mg tablet,delayed 40 mg PO DAILY Reflux/Acid reflux 12/05/19 02/09/25 History release polyethylene glycol 3350 17 gram 17 g PO DAILYP PRN Constipation 12/05/19 02/09/25 History oral powder packet lactulose 10 gram/15 mL oral 30 ml PO DAILYP PRN Constipation 02/03/21 02/09/25 History solution acetaminophen 325 mg tablet 650 mg (2 x 325 mg) PO Q6HP PRN 04/02/21 02/09/25 Rx Mild To Moderate Pain docusate sodium 100 mg capsule 100 mg PO BIDP PRN Constipation 04/02/21 02/09/25 Rx sacubitril 97 mg-valsartan 103 mg 1 tab PO BID #60 tabs 03/08/23 02/09/25 Rx tablet (Entresto) metformin 1,000 mg tablet 1,000 mg PO BID #180 tabs 12/03/23 02/09/25 Rx multivitamin (One-A-Day Essential 1 tab PO DAILY 01/16/24 02/09/25 History tablet) rivaroxaban 2.5 mg tablet 2.5 mg PO BID Blood thinner 90 02/06/24 02/09/25 Rx days #180 tabs spironolactone 25 mg tablet 25 mg PO DAILY #90 tabs 02/06/24 02/09/25 Rx (Aldactone) insulin human U-100 NPH-regulr 65 unit SQ DAILY 05/24/24 02/09/25 History 70-30 mix 100 unit/mL subcutaneous susp empagliflozin 25 mg tablet 25 mg PO DAILY #90 tabs 08/14/24 02/09/25 Rx (Jardiance) quetiapine 400 mg tablet 400 mg PO HS 08/29/24 02/09/25 History coQ10 (ubiquinol) 100 mg capsule 100 mg PO BID #180 caps 11/13/24 02/09/25 Rx (Qunol Kurtis CoQ10) dextromethorphan-guaifenesin 10 10 ml PO Q6HP PRN Congestion 11/13/24 02/09/25 History mg-100 mg/5 mL oral liquid (Robafen DM Cough) pen needle,diabetic dual safty 30 #100 ea 11/29/24 02/09/25 History gauge x 3/16 (BD AutoShield Duo Pen Needle) venlafaxine 150 mg 150 mg PO DAILY 01/22/25 02/09/25 History capsule,extended release 24 hr gabapentin 100 mg capsule 100 mg PO BID #60 caps 02/06/25 02/09/25 Rx carvedilol 25 mg tablet (Coreg) 25 mg PO 0800,1700 02/09/25 02/09/25 History clonazepam 0.5 mg tablet 0.5 mg PO HS anxiety 02/09/25 02/09/25 History hydrocodone 5 mg-acetaminophen 325 1 tab PO BIDP PRN pain 02/09/25 02/09/25 History mg tablet prazosin 1 mg capsule 3 mg PO HS 02/09/25 02/09/25 History trazodone 50 mg tablet 50 mg PO HS insomnia 02/09/25 02/09/25 History New Prescriptions to Start Prescriptions: Allergies Allergy/AdvReac Type Severity Reaction Status Date / Time No Known Allergies Allergy Verified 02/05/25 10:06 Exam (Inpt) Vital signs and Labs for Last 24 Hours: Temp Pulse Resp BP Pulse Ox O2 Del Method 97.9 F 74 17 127/68 98 Room Air 02/11/25 04:00 02/11/25 04:00 02/11/25 04:00 02/11/25 04:00 02/11/25 04:00 02/11/25 06:17 Laboratory Results - last 24 hr 02/10/25 06:00: Total Counted 100, Neutrophils % (Manual) 41 L, Lymphocytes % (Manual) 52 H, Monocytes % (Manual) 6, Eosinophils % (Manual) 1, Platelet Estimate Normal, RBC Morphology Normal, ESR 103 H, Carbon Dioxide 23, Anion Gap 12.0, C-Reactive Protein 5.4 H 02/10/25 11:05: Sodium 139, Potassium 5.3 H, Chloride 108 H, Carbon Dioxide 21 L , Anion Gap 15.3 H, BUN 18, Creatinine 1.50 H, Estimated Creat Clear 73, E stimated GFR 47 L, Est GFR ( Amer) 57 L, Glucose 91, Calcium 9.8 02/10/25 15:00: WBC 16.2 H, RBC 3.46 L, Hgb 10.4 L, Hct 33.2 L, MCV 96.0 H, MCH 30.1, MCHC 31.3 L, RDW 14.1, Plt Count 321, MPV 9.8, Neut % (Auto) 16.3 L, Lymph % (Auto) 77.1 H, [place] % (Auto) 5.6, Eos % (Auto) 0.6, Baso % (Auto) 0.2, Neut # (Auto) 2.7, Lymph # (Auto) 12.5 H, [place] # (Auto) 0.9, Eos # (Auto) 0.1, Baso # (Auto) 0.0, Total Counted 100, Neutrophils % (Manual) 24 L, Lymphocytes % (Manual) 64 H, Monocytes % (Manual) 9, Eosinophils % (Manual) 1, Blast Cells % 2.0, Platelet Estimate Normal, RBC Morphology , Hypochromasia 1+, Poikilocytosis 1+, Anisocytosis 1+, Macrocytosis 1+, Elliptocytes 1+, Rouleaux 1+ 02/10/25 16:50: Urine Color Yellow, Urine Appearance Clear, Urine pH 6.0, Ur Specific [place] 1.020, Urine Protein Negative, Urine Glucose (UA) 3+, Urine Ketones Negative, Urine Blood Negative, Urine Nitrate Negative, Urine Bilirubin Negative, Urine Urobilinogen 0.2, Ur Leukocyte Esterase Negative, Urine RBC None, Urine WBC Occasional, Ur Squamous Epith Cells None, Urine Bacteria Trace 02/10/25 20:23: POC Glucose 91 02/10/25 21:46: Lactate 2.3 H 02/11/25 00:54: Lactate 2.5 H 02/11/25 05:33: WBC 16.6 H, RBC 3.20 L, Hgb 9.6 L, Hct 30.8 L, MCV 96.3 H, MCH 30.0, MCHC 31.2 L, RDW 14.1, Plt Count 294, MPV 9.9, Neut % (Auto) 15.5 L, Lymph % (Auto) 77.6 H, [place] % (Auto) 5.9, Eos % (Auto) 0.5, Baso % (Auto) 0.4, Neut # (Auto) 2.6, Lymph # (Auto) 12.9 H, [place] # (Auto) 1.0, Eos # (Auto) 0.1, Baso # (Auto) 0.1, Total Counted 100, Neutrophils % (Manual) 21 L, Lymphocytes % (Manual) 75 H, Monocytes % (Manual) 4, Differential Comment Comment, Platelet Estimate Normal, Poikilocytosis 1+, Anisocytosis 1+, Elliptocytes 1+, ESR 68 H, Sodium 139, Potassium 5.6 H, Chloride 108 H, Carbon Dioxide 23, Anion Gap 13.6, BUN 23 H D, Creatinine 2.10 H D, Estimated Creat Clear 53, Estimated GFR 32 L, E st GFR ( Amer) 39 L D, Glucose 95, Lactate 2.1, Calcium 8.9, Magnesium 2.4 H D, Total Bilirubin 0.4, AST 29, ALT 15, Alkaline Phosphatase 77, C- Reactive Protein 4.5 H, Total Protein 6.7, Albumin 3.8, Globulin 2.9, Albumin/Globulin Ratio 1.3 I & O for Labs for Last 24 Hours: Intake & Output 02/08/25 02/09/25 02/10/25 02/11/25 11:59 11:59 11:59 11:59 Intake Total 625 / 625 200 / 200 Output Total 1650 / 1650 850 / 850 Balance -1025 / -1025 -650 / -650 Weight 226 lb 7 oz 226 lb 227 lb 4.8 oz Microbiology Reports for the Last 24 Hours: Microbiology 02/09/25 08:04 Blood Blood Culture - Preliminary NO GROWTH AFTER 24 HOURS Results Labs 02/11/25 05:33 02/11/25 05:33 Labs: Laboratory Results - last 24 hr 02/10/25 06:00: Total Counted 100, Neutrophils % (Manual) 41 L, Lymphocytes % (Manual) 52 H, Monocytes % (Manual) 6, Eosinophils % (Manual) 1, Platelet Estimate Normal, RBC Morphology Normal, ESR 103 H, Carbon Dioxide 23, Anion Gap 12.0, C-Reactive Protein 5.4 H 02/10/25 11:05: Sodium 139, Potassium 5.3 H, Chloride 108 H, Carbon Dioxide 21 L , Anion Gap 15.3 H, BUN 18, Creatinine 1.50 H, Estimated Creat Clear 73, E stimated GFR 47 L, Est GFR ( Amer) 57 L, Glucose 91, Calcium 9.8 02/10/25 15:00: WBC 16.2 H, RBC 3.46 L, Hgb 10.4 L, Hct 33.2 L, MCV 96.0 H, MCH 30.1, MCHC 31.3 L, RDW 14.1, Plt Count 321, MPV 9.8, Neut % (Auto) 16.3 L, Lymph % (Auto) 77.1 H, [place] % (Auto) 5.6, Eos % (Auto) 0.6, Baso % (Auto) 0.2, Neut # (Auto) 2.7, Lymph # (Auto) 12.5 H, [place] # (Auto) 0.9, Eos # (Auto) 0.1, Baso # (Auto) 0.0, Total Counted 100, Neutrophils % (Manual) 24 L, Lymphocytes % (Manual) 64 H, Monocytes % (Manual) 9, Eosinophils % (Manual) 1, Blast Cells % 2.0, Platelet Estimate Normal, RBC Morphology , Hypochromasia 1+, Poikilocytosis 1+, Anisocytosis 1+, Macrocytosis 1+, Elliptocytes 1+, Rouleaux 1+ 02/10/25 16:50: Urine Color Yellow, Urine Appearance Clear, Urine pH 6.0, Ur Specific [place] 1.020, Urine Protein Negative, Urine Glucose (UA) 3+, Urine Ketones Negative, Urine Blood Negative, Urine Nitrate Negative, Urine Bilirubin Negative, Urine Urobilinogen 0.2, Ur Leukocyte Esterase Negative, Urine RBC None, Urine WBC Occasional, Ur Squamous Epith Cells None, Urine Bacteria Trace 02/10/25 20:23: POC Glucose 91 02/10/25 21:46: Lactate 2.3 H 02/11/25 00:54: Lactate 2.5 H 02/11/25 05:33: WBC 16.6 H, RBC 3.20 L, Hgb 9.6 L, Hct 30.8 L, MCV 96.3 H, MCH 30.0, MCHC 31.2 L, RDW 14.1, Plt Count 294, MPV 9.9, Neut % (Auto) 15.5 L, Lymph % (Auto) 77.6 H, [place] % (Auto) 5.9, Eos % (Auto) 0.5, Baso % (Auto) 0.4, Neut # (Auto) 2.6, Lymph # (Auto) 12.9 H, [place] # (Auto) 1.0, Eos # (Auto) 0.1, Baso # (Auto) 0.1, Total Counted 100, Neutrophils % (Manual) 21 L, Lymphocytes % (Manual) 75 H, Monocytes % (Manual) 4, Differential Comment Comment, Platelet Estimate Normal, Poikilocytosis 1+, Anisocytosis 1+, Elliptocytes 1+, ESR 68 H, Sodium 139, Potassium 5.6 H, Chloride 108 H, Carbon Dioxide 23, Anion Gap 13.6, BUN 23 H D, Creatinine 2.10 H D, Estimated Creat Clear 53, Estimated GFR 32 L, E st GFR ( Amer) 39 L D, Glucose 95, Lactate 2.1, Calcium 8.9, Magnesium 2.4 H D, Total Bilirubin 0.4, AST 29, ALT 15, Alkaline Phosphatase 77, C- Reactive Protein 4.5 H, Total Protein 6.7, Albumin 3.8, Globulin 2.9, Albumin/Globulin Ratio 1.3 Assessment and Plan *Assessment and plan (1) Leukocytosis: Status: Acute Category: Medical Code(s): D72.829 - Elevated white blood cell count, unspecified Plan Highly unlikely that this is pneumatosis of the ascending colon in this clinical setting. Recommend repeat CT scan with IV and oral contrast. Although unlikely, if patient has colon necrosis would need immediate transfer.
--- NOTE | 2025-02-11 07:16 | CT_ITS ---
FINAL REPORT TECHNIQUE: Oral and IV contrast enhanced exam This study was performed with techniques to keep radiation doses as low as reasonably achievable, (ALARA). Individualized dose reduction techniques using automated exposure control or adjustment of mA and/or kV according to the patient's size were employed. CLINICAL HISTORY: Leukocytosis, Abnormal right colon on noncon CT COMPARISON: 02/10/2025 FINDINGS: CT ABDOMEN PELVIS WITH CONTRAST: Abdomen: Mild atelectasis is present in the lung bases. The gallbladder is unremarkable. Liver has an unremarkable CT appearance. The spleen, pancreas and adrenal glands are unremarkable. Kidneys demonstrate upper pole left renal scarring. No bowel obstruction or fluid collection is seen. The previously questioned focus of pneumatosis in the right colon is not seen on today's examination. Pelvis: The appendix is not visualized, however there are no secondary signs of appendicitis. Pelvic bowel loops are unremarkable. No fluid collection or adenopathy is seen. Moderate fecal impaction is present. IMPRESSION: There is no evidence of bowel obstruction, and the previously questioned pneumatosis of the right colon is not seen on the current examination. Moderate fecal impaction. Reviewed, Interpreted and Dictated by Pablito Moncada MD Transcribed by Charley Cardona Authenticated and [facility]
[2025-02-11 07:43] LABS: Reflex Lactic (2 hrs) Add Lactic Reflex
[2025-02-11 08:00] VITALS: BP 114/60; PULSE 76; PULSE 80; RESP 12; TEMP 36.6; O2SAT 97
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
[2025-02-11 08:33] LABS: Lactic Acid Follow up (RFLX 2) 1.7 mmol/L (0.7-2.1)
[2025-02-11] MEDS: ASPIRIN 81MG CHEWABLE TABLET 81 MG PO (09:06)
[2025-02-11] MEDS: VENLAFAXINE XR 75MG CAPSULE 150 MG PO (09:06)
[2025-02-11] MEDS: GABAPENTIN 100MG CAPSULE 100 MG PO ×2 (09:06→20:00)
[2025-02-11] MEDS: 0.9 % SODIUM CHLORIDE 1000ML 1,000 ML 999 ML IV (09:07)
--- NOTE | 2025-02-11 09:30 | CA_ITS ---
APPROVED REPORT EXAM: Comprehensive 2D, Doppler, and color-flow Echocardiogram Yarder Operator: Gia Oakes RT(R) Ht: 6 ft 1 in Wt: 234lbs BSA: 2.30 BP: 147/84 mmHg Indications: CP, DM, HLD, HTN, CAD, hx CABG, LT BKA, RT AKA, KAITLIN, hx of reduced EF on previous echoes. Limited windows secondary to lung impedence and body habitus. Echo Enhancing Agent Indication: Endocardial border delineation Agent(s) / Amount(s) Used: Definity 2 cc M-Mode Dimensions RVDd 2.58 cm (0.9-2.6) LA Diam 3.19 cm (1.9-4.0) LVDd 4.67 cm (3.5-5.7) LVDs 3.22 cm (3.5-5.7) IVSd 0.97 cm (0.6-1.1) PWd 0.93 cm (0.6-1.1) EF (Teich) 58.70% FS 31.00% EDV (Teich) 100.80 mL ESV (Teich) 41.60 mL LV Diastology E Decel Time 157 (160-240 msec) E/A Ratio 0.86 Mitral Valve MV E Max Marcos. 60.0 (40-130 cm/s) MV A Velocity 70.0 (40-130 cm/s) E/A Ratio 0.86 MV PHT 46.0 ms Left Ventricle The left ventricle is normal size. The left ventricular systolic function is low normal. There is increased LV wall thickness. The septum is asynchronous. Diastolic function is indeterminate. No left ventricle thrombus noted on this study. LVEF is 50%. Right Ventricle The right ventricle is not well-visualized. Atria The left atrium size is normal. The right atrium size is normal. There is no Doppler evidence of interatrial shunt. Aortic Valve Aortic valve is mildly thickened. There is no aortic valvular stenosis. Trace aortic regurgitation. Mitral Valve The mitral valve is normal in structure. Trace mitral regurgitation. Tricuspid Valve Tricuspid valve is grossly normal in structure and function. Trace tricuspid regurgitation. There is insufficient TR jet to estimate RVSP. Pulmonic Valve The pulmonary valve is normal in structure. Mild pulmonic regurgitation. Great Vessels The aortic root is normal in size. IVC is normal in size and collapses >50% with inspiration. Pericardium There is no pericardial effusion. Other Information Study Quality: Technically Difficult Conclusion Technically difficult study due to poor acoustic windows. Low normal LV systolic function (LVEF 50%). Asynchronous septum. Mild PI. Electronically signed by : Barbara Hawk MD 02/11/2025 12:49:43
[2025-02-11] MEDS: DIATRIZOATE MEG 66% & DIATRIZOATE NA 10% 30ML UDC 30 ML PO (11:02)
[2025-02-11] MEDS: SODIUM CHLORIDE 0.9% 10ML SYR (RAD ONLY) 10 ML IV (11:02)
[2025-02-11] MEDS: IOPAMIDOL-370 (76%);100ML BOTTLE 75 ML IV (11:03)
[2025-02-11] MEDS: DEFINITY US ECHO CONTRAST 2ML INJ 2 MG IV (11:05)
[2025-02-11] MEDS: PIPERACILLIN/TAZO 4.5 GM in 0.9 % SODIUM CHLORIDE 100 ML IV ×2 (11:33→16:46)
[2025-02-11 11:46] LABS: POC Glucose,Bedside 96 (70-110)
[2025-02-11 12:00] VITALS: BP 123/71; PULSE 68; PULSE 70; RESP 14; TEMP 36.8; O2SAT 98
[2025-02-11 12:32] LABS: Anion Gap 13.7 mEq/L (5-15); Blood Urea Nitrogen 25 mg/dl (9-20); Calcium 9.2 mg/dl (8.4-10.2); Carbon Dioxide 22 mmol/L (22.0-30.0); Chloride 108 mmol/L (98-107); Creatinine Clearance Estimated 53 mL/min (50-200); Estimated Glomerular Filt Rate 32 ml/min (>60); GFR (African American) 39 ML/MIN (>60); Glucose 92 mg/dl (74-100); Potassium 5.7 mmoL/L (3.5-5.1); Sodium 138 mmol/L (136-145)
[2025-02-11] MEDS: MINERAL OIL ENEMA 133ML 133 ML RC (13:33)
[2025-02-11] MEDS: LACTATED RINGERS 1000ML 1,000 ML 100 ML IV (13:39)
[2025-02-11] MEDS: LOKELMA 5GM PACKET 10 GM PO ×2 (13:39→20:02)
--- NOTE | 2025-02-11 13:47 | P.CONCA_ITS ---
History of Present Illness History of Present Illness Consult date: 02/11/25 Requesting physician: Edgar Bean Consult reason: chest pain Chief complaint: chest pain History of present illness: This is a 64-year-old -[place] gentleman who presented to the emergency department with complaints of chest pain. The patient states that he has been having chest pain that started a week ago. He notices this after he eats food. He describes this as a pressure sensation in his anterior chest and upper abdomen's. He states that usually it will resolve if he belches or after a few minutes. The patient denies any chest pain or pressure currently. He states that he does feel like he has gas. He denies any shortness of breath or edema. He denies any fever, chills, nausea, vomiting, diarrhea, PND or orthopnea. The patient was evaluated in the emergency department and ruled out for an OR. Due to transportation issues he was delayed overnight getting back to the [place] [facility]. Labs were repeated and the patient's creatinine elevated and his white blood cell count also elevated. The patient was subsequently admitted to the hospital for an FAVIO and an uptrending leukocytosis. [facility] Disclaimer: The information contained in this section may have been updated after the patient was seen, as this information can be updated by other users. Medical History (Updated 02/11/25 @ 13:55 by Loulou Rooney APRN) Fecal impaction Chest pain Peripheral arterial disease Colon cancer screening Anemia HFrEF (heart failure with reduced ejection fraction) Visual disturbance Systolic heart failure Renal artery stenosis LV dysfunction COVID-19 Below-knee amputation of left lower extremity Diabetes mellitus with diabetic neuropathy Acute kidney injury Dehiscence of amputation stump Postprocedural (acute) (chronic) kidney failure Non-pressure chronic ulcer of unspecified part of right lower leg with unspecified severity Peptic ulcer, site unspecified, unspecified as acute or chronic, without hemorrhage or perforation Chronic or unspecified duodenal ulcer with hemorrhage Acute respiratory failure with hypoxia 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 Chronic osteomyelitis of left foot Overweight (BMI 25.0-29.9) Above knee amputation of right lower extremity Postoperative wound dehiscence Hyperlipidemia Hypertension Coronary artery disease Ischemic ulcer of left foot Peripheral arterial occlusive disease Onychodystrophy Surgical History History of right above knee amputation History of left below knee amputation History of colonoscopy Status post transmetatarsal amputation of left foot History of coronary artery bypass graft Social History Smoking Status: Never smoker second hand exposure: No alcohol intake: never substance use type: denies use current occupational status: retired Travel in the last 8 weeks: None household members: other housing: [facility] current occupational exposures/hazards: No caffeine: No Have you lived/traveled outside US in past 30 days?: No Contact w/someone who lives/traveled outside US past 30 days?: No Exposure to someone with infectious disease in past 14 days?: No Do you have a fever (greater than 100.4 F or 38 C)?: No Have you tested positive for COVID-19: No Exposed to someone with COVID-19 in past 14 days?: No Do you have a sore throat?: No Do you have a cough?: No Do you have any weakness?: No Do you have any diarrhea?: No Are you experiencing any unusual bleeding?: No Do you have any muscle aches/pain?: No Do you have any abdominal pain?: No Are you experiencing loss of taste or smell?: No Review of Systems Review of Systems Review of systems:: pertinent systems reviewed and negative unless documented below Constitutional Constitutional: Reports system reviewed and no additional complaints, except as documented and Reports lethargy Eyes Eyes: Reports system reviewed and no additional complaints, except as documented ENT Ears, Nose, Mouth, and Throat: Reports system reviewed and no additional complaints, except as documented *Cardiovascular Cardiovascular: Reports system reviewed and no additional complaints, except as documented, Reports chest pain and Denies dyspnea *Respiratory Respiratory: Reports system reviewed and no additional complaints, except as documented and Denies dyspnea *Gastrointestinal Gastrointestinal: Reports system reviewed and no additional complaints, except as documented, Reports abdominal pain, Reports constipation and Reports dyspepsia *Genitourinary Genitourinary: Reports system reviewed and no additional complaints, except as documented *Musculoskeletal Musculoskeletal: Reports system reviewed and no additional complaints, except as documented Integumentary/Breasts Skin/Breast: Reports system reviewed and no additional complaints, except as documented *Neurologic Neurologic: Reports system reviewed and no additional complaints, except as documented Psychiatric Psychiatric: Reports system reviewed and no additional complaints, except as documented Endocrine Endocrine: Reports system reviewed and no additional complaints, except as documented Hematologic/Lymphatic Hematologic/Lymphatic: Reports system reviewed and no additional complaints, except as documented Allergic/Immunologic Allergic/Immunologic: Reports system reviewed and no additional complaints, except as documented Exam Data for Last 24 hours Vital signs and Labs for Last 24 Hours: Temp Pulse Resp BP Pulse Ox O2 Del Method 98.2 F 68 14 123/71 98 Room Air 02/11/25 12:00 02/11/25 12:00 02/11/25 12:00 02/11/25 12:00 02/11/25 12:00 02/11/25 12:00 Laboratory Results - last 24 hr 02/10/25 15:00: WBC 16.2 H, RBC 3.46 L, Hgb 10.4 L, Hct 33.2 L, MCV 96.0 H, MCH 30.1, MCHC 31.3 L, RDW 14.1, Plt Count 321, MPV 9.8, Neut % (Auto) 16.3 L, Lymph % (Auto) 77.1 H, [place] % (Auto) 5.6, Eos % (Auto) 0.6, Baso % (Auto) 0.2, Neut # (Auto) 2.7, Lymph # (Auto) 12.5 H, [place] # (Auto) 0.9, Eos # (Auto) 0.1, Baso # (Auto) 0.0, Total Counted 100, Neutrophils % (Manual) 24 L, Lymphocytes % (Manual) 64 H, Monocytes % (Manual) 9, Eosinophils % (Manual) 1, Blast Cells % 2.0, Platelet Estimate Normal, RBC Morphology , Hypochromasia 1+, Poikilocytosis 1+, Anisocytosis 1+, Macrocytosis 1+, Elliptocytes 1+, Rouleaux 1+ 02/10/25 16:50: Urine Color Yellow, Urine Appearance Clear, Urine pH 6.0, Ur Specific [place] 1.020, Urine Protein Negative, Urine Glucose (UA) 3+, Urine Ketones Negative, Urine Blood Negative, Urine Nitrate Negative, Urine Bilirubin Negative, Urine Urobilinogen 0.2, Ur Leukocyte Esterase Negative, Urine RBC None, Urine WBC Occasional, Ur Squamous Epith Cells None, Urine Bacteria Trace 02/10/25 20:23: POC Glucose 91 02/10/25 21:46: Lactate 2.3 H 02/11/25 00:54: Lactate 2.5 H 02/11/25 05:33: WBC 16.6 H, RBC 3.20 L, Hgb 9.6 L, Hct 30.8 L, MCV 96.3 H, MCH 30.0, MCHC 31.2 L, RDW 14.1, Plt Count 294, MPV 9.9, Neut % (Auto) 15.5 L, Lymph % (Auto) 77.6 H, [place] % (Auto) 5.9, Eos % (Auto) 0.5, Baso % (Auto) 0.4, Neut # (Auto) 2.6, Lymph # (Auto) 12.9 H, [place] # (Auto) 1.0, Eos # (Auto) 0.1, Baso # (Auto) 0.1, Total Counted 100, Neutrophils % (Manual) 21 L, Lymphocytes % (Manual) 75 H, Monocytes % (Manual) 4, Differential Comment Comment, Platelet Estimate Normal, Poikilocytosis 1+, Anisocytosis 1+, Elliptocytes 1+, ESR 68 H, Sodium 139, Potassium 5.6 H, Chloride 108 H, Carbon Dioxide 23, Anion Gap 13.6, BUN 23 H D, Creatinine 2.10 H D, Estimated Creat Clear 53, Estimated GFR 32 L, Est GFR ( Amer) 39 L D, Glucose 95, Lactate 2.1, Calcium 8.9, Magnesium 2.4 H D, Total Bilirubin 0.4, AST 29, ALT 15, Alkaline Phosphatase 77, C- Reactive Protein 4.5 H, Total Protein 6.7, Albumin 3.8, Globulin 2.9, Albumin/Globulin Ratio 1.3 02/11/25 08:17: Lactate 1.7 02/11/25 11:31: POC Glucose 96 02/11/25 12:12: Sodium 138, Potassium 5.7 H, Chloride 108 H, Carbon Dioxide 22, Anion Gap 13.7, BUN 25 H, Creatinine 2.10 H, Estimated Creat Clear 53, Estimated GFR 32 L, Est GFR ( Amer) 39 L, Glucose 92, Calcium 9.2 I & O for Last 24 hours: Intake & Output 03/28/25 03/29/25 03/30/25 03/31/25 23:59 23:59 23:59 23:59 Intake Total 595 / 625 230 / 230 Output Total 1650 / 1650 650 / 650 200 / 200 Balance -1055 / -1025 -420 / -420 -200 / -200 Weight 234 lb 226 lb 7 oz 226 lb 227 lb 4.8 oz Microbiology Reports for the Last 24 Hours: Microbiology 02/09/25 08:04 Blood Blood Culture - Preliminary NO GROWTH AFTER 48 HOURS Constitutional Constitutional: no acute distress, obese and chronically ill appearing *Routine HEENT Exam Head: Present normocephalic and atraumatic ENT: Present mucous membranes moist *Routine Neck Exam Neck: Present supple, full ROM and normal carotid upstroke; Absent JVD, carotid bruit or lymphadenopathy *Routine Respiratory Exam Respiratory: Present CTA bilaterally, normal respiratory effort, able to speak in complete sentences and symmetric chest movement *Routine Cardiovascular Exam Cardiovascular: Present RRR, Normal S1 and Normal S2; Absent murmur or gallop *Routine Abdominal Exam Abdominal: Present soft and normoactive bowel sounds; Absent tenderness, distended or organomegaly *Routine Extremities Exam Extremities: Present full ROM, pulses intact and normal capillary refill; Absent cyanosis, clubbing or edema *Routine Skin Exam Skin: Present intact and warm; Absent erythema *Routine Neurological Exam Neurological: Present alert, oriented X3 and CN II-XII intact; Absent sensory deficit or motor deficit Routine Psychiatric Exam Psychiatric: Present normal affect Meds Home Medications and Allergies Home Medications ?Medication ?Instructions ?Recorded ?Confirmed ?Type aspirin 81 mg chewable tablet 81 mg PO DAILY HEART HEALTH 12/05/19 02/09/25 History atorvastatin 80 mg tablet 80 mg PO HS Cholesterol 12/05/19 02/09/25 History pantoprazole 40 mg tablet,delayed 40 mg PO DAILY Reflux/Acid reflux 12/05/19 02/09/25 History release polyethylene glycol 3350 17 gram 17 g PO DAILYP PRN Constipation 12/05/19 02/09/25 History oral powder packet lactulose 10 gram/15 mL oral 30 ml PO DAILYP PRN Constipation 02/03/21 02/09/25 History solution acetaminophen 325 mg tablet 650 mg (2 x 325 mg) PO Q6HP PRN 04/02/21 02/09/25 Rx Mild To Moderate Pain docusate sodium 100 mg capsule 100 mg PO BIDP PRN Constipation 04/02/21 02/09/25 Rx sacubitril 97 mg-valsartan 103 mg 1 tab PO BID #60 tabs 03/08/23 02/09/25 Rx tablet (Entresto) metformin 1,000 mg tablet 1,000 mg PO BID #180 tabs 12/03/23 02/09/25 Rx multivitamin (One-A-Day Essential 1 tab PO DAILY 01/16/24 02/09/25 History tablet) rivaroxaban 2.5 mg tablet 2.5 mg PO BID Blood thinner 90 02/06/24 02/09/25 Rx days #180 tabs spironolactone 25 mg tablet 25 mg PO DAILY #90 tabs 02/06/24 02/09/25 Rx (Aldactone) insulin human U-100 NPH-regulr 65 unit SQ DAILY 05/24/24 02/09/25 History 70-30 mix 100 unit/mL subcutaneous susp empagliflozin 25 mg tablet 25 mg PO DAILY #90 tabs 08/14/24 02/09/25 Rx (Jardiance) quetiapine 400 mg tablet 400 mg PO HS 08/29/24 02/09/25 History coQ10 (ubiquinol) 100 mg capsule 100 mg PO BID #180 caps 11/13/24 02/09/25 Rx (Qunol Kurtis CoQ10) dextromethorphan-guaifenesin 10 10 ml PO Q6HP PRN Congestion 11/13/24 02/09/25 History mg-100 mg/5 mL oral liquid (Robafen DM Cough) pen needle,diabetic dual safty 30 #100 ea 11/29/24 02/09/25 History gauge x 3/16 (BD AutoShield Duo Pen Needle) venlafaxine 150 mg 150 mg PO DAILY 01/22/25 02/09/25 History capsule,extended release 24 hr gabapentin 100 mg capsule 100 mg PO BID #60 caps 02/06/25 02/09/25 Rx carvedilol 25 mg tablet (Coreg) 25 mg PO 0800,1700 02/09/25 02/09/25 History clonazepam 0.5 mg tablet 0.5 mg PO HS anxiety 02/09/25 02/09/25 History hydrocodone 5 mg-acetaminophen 325 1 tab PO BIDP PRN pain 02/09/25 02/09/25 History mg tablet prazosin 1 mg capsule 3 mg PO HS 02/09/25 02/09/25 History trazodone 50 mg tablet 50 mg PO HS insomnia 02/09/25 02/09/25 History New Prescriptions to Start Prescriptions: Allergies Allergy/AdvReac Type Severity Reaction Status Date / Time No Known Allergies Allergy Verified 02/05/25 10:06 Assessment and Plan *Assessment and plan (1) Leukocytosis: Status: Acute Qualifiers: Leukocytosis type: unspecified Qualified Code(s): D72.829 - Elevated white blood cell count, unspecified Category: Medical Code(s): D72.829 - Elevated white blood cell count, unspecified (2) Falls: Status: Acute Category: Medical Code(s): R29.6 - Repeated falls (3) Acute hyperkalemia: Status: Acute Category: Medical Code(s): E87.5 - Hyperkalemia (4) Coronary artery disease: Status: Chronic Qualifiers: Associated angina: without angina Coronary Disease-Associated Artery/Lesion type: [place] artery [place] vs. transplanted heart: [place] heart Qualified Code(s): I25.10 - Atherosclerotic heart disease of [place] coronary artery without angina pectoris Category: Medical Code(s): I25.10 - Atherosclerotic heart disease of [place] coronary artery without angina pectoris (5) CKD (chronic kidney disease): Status: Acute Qualifiers: Chronic kidney disease stage: unspecified stage Qualified Code(s): N18.9 - Chronic kidney disease, unspecified Category: Medical Code(s): N18.9 - Chronic kidney disease, unspecified (6) History of right above knee amputation: Status: Acute Category: Surgical Code(s): Z89.611 - Acquired absence of right leg above knee (7) History of left below knee amputation: Status: Acute Category: Surgical Code(s): Z89.512 - Acquired absence of left leg below knee (8) Hypertension: Status: Chronic Qualifiers: Hypertension type: essential hypertension Qualified Code(s): I10 - Essential (primary) hypertension Category: Medical Code(s): I10 - Essential (primary) hypertension (9) Hyperlipidemia: Status: Chronic Qualifiers: Hyperlipidemia type: mixed hyperlipidemia Qualified Code(s): E78.2 - Mixed hyperlipidemia Category: Medical Code(s): E78.5 - Hyperlipidemia, unspecified (10) Diabetes mellitus: Status: Chronic Qualifiers: Diabetes mellitus complication detail: with peripheral angiopathy with gangrene Diabetes mellitus complication status: with circulatory complication Diabetes mellitus long term care administrator insulin use: with correction use Diabetes mellitus type: type 2 Qualified Code(s): E11.52 - Type 2 diabetes mellitus with diabetic peripheral angiopathy with gangrene; Z79.4 - termite technician (current) use of insulin Category: Medical Code(s): E11.9 - Type 2 diabetes mellitus without complications (11) Peripheral arterial disease: Status: Acute Category: Medical Code(s): I73.9 - Peripheral vascular disease, unspecified (12) Renal artery stenosis: Status: Acute Category: Medical Code(s): I70.1 - Atherosclerosis of renal artery (13) Anemia: Status: Acute Qualifiers: Anemia type: unspecified type Qualified Code(s): D64.9 - Anemia, unspecified Category: Medical Code(s): D64.9 - Anemia, unspecified (14) Chest pain: Status: Acute Qualifiers: Chest pain type: other chest pain Qualified Code(s): R07.89 - Other chest pain Category: Medical Code(s): R07.9 - Chest pain, unspecified (15) Fecal impaction: Status: Acute Category: Medical Code(s): K56.41 - Fecal impaction Plan Plan: 1. The patient was admitted to the hospital for FAVIO and uptrending leukocytosis. The patient was found to have a fecal impaction and questionable air trapping in his colon. He is getting a repeat CT today. Will defer to surgery and the hospitalist. 2. The patient initially came to the emergency department for chest pain. He ruled out for an OR. No plans for invasive left cardiac catheterization at this time. Will obtain an echocardiogram to evaluate his LV function and as long as this is normal then no further cardiology workup is needed at this time. 3. Coronary artery disease is present. He does have a history of CABG. As mentioned above he ruled out for an OR. Recommend aspirin 81 mg daily. 4. His blood pressure is well-controlled. Continue carvedilol. 5. His LDL goal is less than 55. He is on a statin. Will get a lipid panel in the morning. 6. No patient has hyper kalemia. Stop Entresto and spironolactone. 7. The patient is diabetic. Will defer management of this to the hospitalist. 8. His PAD is stable. 9. Renal artery stenosis is stable. 10. The patient is anemic. Will defer management of this to the hospitalist. 11. The patient does have chronic kidney disease. His creatinine is slightly elevated. Will defer to the hospitalist. 12. Further recommendations will be made pending the patient's response to treatment and the results of his echocardiogram today. Thank you for the opportunity to participate in the care of this patient. All recommendations and orders are per Dr. Hawk. Addendum: Echocardiogram shows an ejection fraction of 50% with no significant wall motion abnormalities. No plans for invasive left cardiac catheterization at this time. His troponins were negative. The patient's chest pain is most likely from his fecal impaction. Continue aspirin 81 mg daily, atorvastatin 80 mg daily, Coreg 25 mg p.o. twice daily, Jardiance 25 mg daily and Xarelto 2.5 mg p.o. twice daily. Hold Entresto and spironolactone due to his hyperkalemia. No further recommendations at this time from a cardiac standpoint. The patient can follow- up in cardiology clinic in 1 to 2 weeks on an outpatient basis once he is discharged from the hospital. If any other cardiology issues arise throughout the patient's hospitalization, please please feel free to contact cardiology again.
--- NOTE | 2025-02-11 15:08 | P.DS_ITS ---
General Admission date:: 02/09/25 HPI HPI HPI: 64-year-old male with history of CAD/CABG, HFpEF, hypertension, hyperlipidemia, type 2 diabetes, left BKA, right AKA, mood disorder who presented with midsternal chest pain on 02/09/2025. He had an unremarkable cardiac workup in the ED and was prepped for discharge but stayed overnight in the ED due to transportation delays back to nursing facility. Chest pain was also resolved. However, patient's creatinine bumped from 1.6-2.0 or 2 days, WBC 19.2, 16.6 AGAP metabolic acidosis. Patient states his chest pain has been on and off for months and is usually triggered by what type of food he eats. He was admitted due to chronic kidney disease and leukocytosis. Due to leukocytosis he underwent CT scan of the abdomen with IV contrast on 02/10/2025. This revealed findings of no acute intra-abdominal process. There was a moderate amount of fecal material suggesting constipation. There was mild air noted along the inner margin of the wall of the ascending colon favored to represent artifact trapped between the wall of the colon and fecal material. The possibility this might reflect early pneumatosis suggesting bowel wall necrosis cannot be entirely excluded in the proper clinical setting. Due to this reading surgical consultation was obtained. Hospital Course Hospital Course Hospital Course: Easton Hilton is a 64-year-old male with a medical history significant for CAD/CABG, HFpEF, hypertension, hyperlipidemia, type 2 diabetes, left BKA, right AKA, mood disorder who presents with midsternal chest pain. He had an unremarkable cardiac workup in the ED and was prepped for discharge but stayed overnight in the ED due to transportation delays back to nursing facility. Chest pain was also resolved. However, patient's creatinine bumped from 1.6-2.0 or 2 days, WBC 19.2, 16.6 AGAP metabolic acidosis. On my evaluation, patient states his chest pain has been on and off for months and is usually triggered by what type of food he eats. No radiation to shoulder, jaw, shortness of breath. He endorses intermittent chills and was told he has a common cold. Case discussed with ED providermade to admit patient for FAVIO and CKD, and uptrending leukocytosis. #Fecal impaction #Suspected stercoral colitis #Leukocytosis ? Initial WBC 19.2, lymphocytic predominant. Improving to 16.6 today. ? Respiratory panel negative. UA, blood cultures, CTA chest normal. ? CT abdomen/pelvis showed significant stool burden, but also possible bowel n ecrosis. Repeat CT abdomen/pelvis with oral contrast did not corroborate this finding. General surgery consulted, also did not corroborate this finding. No suspicion for bowel necrosis given normal repeat CT and no abdominal symptoms. Lactic acid also normal. ? Cannot rule out malignancy, will follow-up peripheral smear. ? Possible stercoral colitis from fecal impaction. Treated with Zosyn, discharged with Augmentin for 5 more days. #FAVIO on CKD #Hyperkalemia ? Initial creatinine 2.0, baseline 1.6. Improved to 1.5, but bumped to 2.1 after IV contrast for CT. Given 1 L LR bolus. ? Potassium 5.6, improved after IV fluids, insulin, D50. Rebounded to 5.6 after IV contrast for CT. Started Lokelma 10 mg daily. ? Follow-up repeat BMP, potassium tomorrow. #Chest pain #History of CABG, CAD ? Endorses intermittent midsternal chest pain with no radiation, states it is worse depending on what he eats. ? Follows with cardiology regularly, last visit November 2024. ? Troponins normal, EKG without acute ischemic changes. ? May benefit from further ischemic workup outpatient. Cardiology consulted, no inpatient ischemic workup. Advised to follow-up in the clinic in 1 to 2 weeks. ? Continue aspirin, statin. #HFimpEF #Hypertension ? Stable. Hold home Entresto, spironolactone due to FAVIO, hyperkalemia. Continue carvedilol. #Type 2 diabetes #Left BKA, right AKA ? A1c 6.1. Continue home metformin, Jardiance 25 mg. Discontinued insulin as it was not needed during his hospitalization, resume as appropriate. ? Stumps stable, does have left stump abrasion but no active signs of infection. #Mood disorder ? Continue home venlafaxine, quetiapine, prazosin. QTc 427. Total time spent on discharge: 40 minutes on chart review, counseling, documentation, and direct care with patient. Exam Data for Last 24 hours Vital signs and Labs for Last 24 Hours: Temp Pulse Resp BP Pulse Ox O2 Del Method 98.2 F 68 14 123/71 98 Room Air 02/11/25 12:00 02/11/25 12:00 02/11/25 12:00 02/11/25 12:00 02/11/25 12:00 02/11/25 12:00 Laboratory Results - last 24 hr 02/10/25 15:00: WBC 16.2 H, RBC 3.46 L, Hgb 10.4 L, Hct 33.2 L, MCV 96.0 H, MCH 30.1, MCHC 31.3 L, RDW 14.1, Plt Count 321, MPV 9.8, Neut % (Auto) 16.3 L, Lymph % (Auto) 77.1 H, [place] % (Auto) 5.6, Eos % (Auto) 0.6, Baso % (Auto) 0.2, Neut # (Auto) 2.7, Lymph # (Auto) 12.5 H, [place] # (Auto) 0.9, Eos # (Auto) 0.1, Baso # (Auto) 0.0, Total Counted 100, Neutrophils % (Manual) 24 L, Lymphocytes % (Manual) 64 H, Monocytes % (Manual) 9, Eosinophils % (Manual) 1, Blast Cells % 2.0, Platelet Estimate Normal, RBC Morphology , Hypochromasia 1+, Poikilocytosis 1+, Anisocytosis 1+, Macrocytosis 1+, Elliptocytes 1+, Rouleaux 1+ 02/10/25 16:50: Urine Color Yellow, Urine Appearance Clear, Urine pH 6.0, Ur Specific [place] 1.020, Urine Protein Negative, Urine Glucose (UA) 3+, Urine Ketones Negative, Urine Blood Negative, Urine Nitrate Negative, Urine Bilirubin Negative, Urine Urobilinogen 0.2, Ur Leukocyte Esterase Negative, Urine RBC None, Urine WBC Occasional, Ur Squamous Epith Cells None, Urine Bacteria Trace 02/10/25 20:23: POC Glucose 91 02/10/25 21:46: Lactate 2.3 H 02/11/25 00:54: Lactate 2.5 H 02/11/25 05:33: WBC 16.6 H, RBC 3.20 L, Hgb 9.6 L, Hct 30.8 L, MCV 96.3 H, MCH 30.0, MCHC 31.2 L, RDW 14.1, Plt Count 294, MPV 9.9, Neut % (Auto) 15.5 L, Lymph % (Auto) 77.6 H, [place] % (Auto) 5.9, Eos % (Auto) 0.5, Baso % (Auto) 0.4, Neut # (Auto) 2.6, Lymph # (Auto) 12.9 H, [place] # (Auto) 1.0, Eos # (Auto) 0.1, Baso # (Auto) 0.1, Total Counted 100, Neutrophils % (Manual) 21 L, Lymphocytes % (Manual) 75 H, Monocytes % (Manual) 4, Differential Comment Comment, Platelet Estimate Normal, Poikilocytosis 1+, Anisocytosis 1+, Elliptocytes 1+, ESR 68 H, Sodium 139, Potassium 5.6 H, Chloride 108 H, Carbon Dioxide 23, Anion Gap 13.6, BUN 23 H D, Creatinine 2.10 H D, Estimated Creat Clear 53, Estimated GFR 32 L, Est GFR ( Amer) 39 L D, Glucose 95, Lactate 2.1, Calcium 8.9, Magnesium 2.4 H D, Total Bilirubin 0.4, AST 29, ALT 15, Alkaline Phosphatase 77, C- Reactive Protein 4.5 H, Total Protein 6.7, Albumin 3.8, Globulin 2.9, Albumin/Globulin Ratio 1.3 02/11/25 08:17: Lactate 1.7 02/11/25 11:31: POC Glucose 96 02/11/25 12:12: Sodium 138, Potassium 5.7 H, Chloride 108 H, Carbon Dioxide 22, Anion Gap 13.7, BUN 25 H, Creatinine 2.10 H, Estimated Creat Clear 53, Estimated GFR 32 L, Est GFR ( Amer) 39 L, Glucose 92, Calcium 9.2 I & O for Last 24 hours: Intake & Output 02/08/25 02/09/25 02/10/25 02/11/25 23:59 23:59 23:59 23:59 Intake Total 595 / 625 230 / 230 Output Total 1650 / 1650 650 / 650 200 / 200 Balance -1055 / -1025 -420 / -420 -200 / -200 Weight 106.141 kg 102.71 kg 102.512 kg 103.102 kg Microbiology Reports for the Last 24 Hours: Microbiology 02/09/25 08:04 Blood Blood Culture - Preliminary NO GROWTH AFTER 48 HOURS Constitutional Constitutional: no acute distress *Routine HEENT Exam Head: Present normocephalic Eye: Present EOMI and PERRL ENT: Present mucous membranes moist *Routine Neck Exam Neck: Present supple; Absent lymphadenopathy *Routine Respiratory Exam Respiratory: Present CTA bilaterally *Routine Cardiovascular Exam Cardiovascular: Present RRR *Routine Abdominal Exam Abdominal: Present soft and normoactive bowel sounds; Absent tenderness *Routine Extremities Exam Extremities: Absent cyanosis, clubbing or edema Comments: Left BKA, right AKA. *Routine Skin Exam Skin: Present warm; Absent rash *Routine Neurological Exam Neurological: Present alert and oriented X3 Results Data Completed and Pending Labs on day of discharge: Labs from last 24 hours 02/11/25 02/11/25 02/11/25 12:12 11:31 08:17 WBC RBC Hgb Hct MCV MCH MCHC RDW Plt Count MPV Neut % (Auto) Lymph % (Auto) [place] % (Auto) Eos % (Auto) Baso % (Auto) Neut # (Auto) Lymph # (Auto) [place] # (Auto) Eos # (Auto) Baso # (Auto) Total Counted Neutrophils % (Manual) Lymphocytes % (Manual) Monocytes % (Manual) Eosinophils % (Manual) Blast Cells % Differential Comment Platelet Estimate RBC Morphology Hypochromasia Poikilocytosis Anisocytosis Macrocytosis Elliptocytes Rouleaux ESR Sodium 138 Potassium 5.7 H Chloride 108 H Carbon Dioxide 22 Anion Gap 13.7 BUN 25 H Creatinine 2.10 H Estimated Creat Clear 53 Estimated GFR 32 L Est GFR ( Amer) 39 L Glucose 92 POC Glucose 96 Lactate 1.7 Calcium 9.2 Magnesium Total Bilirubin AST ALT Alkaline Phosphatase C-Reactive Protein Total Protein Albumin Globulin Albumin/Globulin Ratio Urine Color Urine Appearance Urine pH Ur Specific [place] Urine Protein Urine Glucose (UA) Urine Ketones Urine Blood Urine Nitrate Urine Bilirubin Urine Urobilinogen Ur Leukocyte Esterase Urine RBC Urine WBC Ur Squamous Epith Cells Urine Bacteria 02/11/25 02/11/25 02/10/25 05:33 00:54 21:46 WBC 16.6 H RBC 3.20 L Hgb 9.6 L Hct 30.8 L MCV 96.3 H MCH 30.0 MCHC 31.2 L RDW 14.1 Plt Count 294 MPV 9.9 Neut % (Auto) 15.5 L Lymph % (Auto) 77.6 H [place] % (Auto) 5.9 Eos % (Auto) 0.5 Baso % (Auto) 0.4 Neut # (Auto) 2.6 Lymph # (Auto) 12.9 H [place] # (Auto) 1.0 Eos # (Auto) 0.1 Baso # (Auto) 0.1 Total Counted 100 Neutrophils % (Manual) 21 L Lymphocytes % (Manual) 75 H Monocytes % (Manual) 4 Eosinophils % (Manual) Blast Cells % Differential Comment Comment Platelet Estimate Normal RBC Morphology Hypochromasia Poikilocytosis 1+ Anisocytosis 1+ Macrocytosis Elliptocytes 1+ Rouleaux ESR 68 H Sodium 139 Potassium 5.6 H Chloride 108 H Carbon Dioxide 23 Anion Gap 13.6 BUN 23 H D Creatinine 2.10 H D Estimated Creat Clear 53 Estimated GFR 32 L Est GFR ( Amer) 39 L D Glucose 95 POC Glucose Lactate 2.1 2.5 H 2.3 H Calcium 8.9 Magnesium 2.4 H D Total Bilirubin 0.4 AST 29 ALT 15 Alkaline Phosphatase 77 C-Reactive Protein 4.5 H Total Protein 6.7 Albumin 3.8 Globulin 2.9 Albumin/Globulin Ratio 1.3 Urine Color Urine Appearance Urine pH Ur Specific [place] Urine Protein Urine Glucose (UA) Urine Ketones Urine Blood Urine Nitrate Urine Bilirubin Urine Urobilinogen Ur Leukocyte Esterase Urine RBC Urine WBC Ur Squamous Epith Cells Urine Bacteria 02/10/25 02/10/25 02/10/25 20:23 16:50 15:00 WBC 16.2 H RBC 3.46 L Hgb 10.4 L Hct 33.2 L MCV 96.0 H MCH 30.1 MCHC 31.3 L RDW 14.1 Plt Count 321 MPV 9.8 Neut % (Auto) 16.3 L Lymph % (Auto) 77.1 H [place] % (Auto) 5.6 Eos % (Auto) 0.6 Baso % (Auto) 0.2 Neut # (Auto) 2.7 Lymph # (Auto) 12.5 H [place] # (Auto) 0.9 Eos # (Auto) 0.1 Baso # (Auto) 0.0 Total Counted 100 Neutrophils % (Manual) 24 L Lymphocytes % (Manual) 64 H Monocytes % (Manual) 9 Eosinophils % (Manual) 1 Blast Cells % 2.0 Differential Comment Platelet Estimate Normal RBC Morphology Hypochromasia 1+ Poikilocytosis 1+ Anisocytosis 1+ Macrocytosis 1+ Elliptocytes 1+ Rouleaux 1+ ESR Sodium Potassium Chloride Carbon Dioxide Anion Gap BUN Creatinine Estimated Creat Clear Estimated GFR Est GFR ( Amer) Glucose POC Glucose 91 Lactate Calcium Magnesium Total Bilirubin AST ALT Alkaline Phosphatase C-Reactive Protein Total Protein Albumin Globulin Albumin/Globulin Ratio Urine Color Yellow Urine Appearance Clear Urine pH 6.0 Ur Specific [place] 1.020 Urine Protein Negative Urine Glucose (UA) 3+ Urine Ketones Negative Urine Blood Negative Urine Nitrate Negative Urine Bilirubin Negative Urine Urobilinogen 0.2 Ur Leukocyte Esterase Negative Urine RBC None Urine WBC Occasional Ur Squamous Epith Cells None Urine Bacteria Trace Preliminary micro results at discharge 02/09/25 08:04 Blood Culture - Preliminary Blood NO GROWTH AFTER 48 HOURS DS: Diagnosis Discharge Diagnosis (1) Leukocytosis: Status: Acute Code(s): D72.829 - Elevated white blood cell count, unspecified Qualifiers: Leukocytosis type: unspecified Qualified Code(s): D72.829 - Elevated white blood cell count, unspecified (2) Falls: Status: Acute Code(s): R29.6 - Repeated falls (3) Acute hyperkalemia: Status: Acute Code(s): E87.5 - Hyperkalemia (4) Coronary artery disease: Status: Chronic Code(s): I25.10 - Atherosclerotic heart disease of [place] coronary artery without angina pectoris Qualifiers: Associated angina: without angina Coronary Disease-Associated Artery/Lesion type: [place] artery [place] vs. transplanted heart: [place] heart Qualified Code(s): I25.10 - Atherosclerotic heart disease of [place] coronary artery without angina pectoris (5) CKD (chronic kidney disease): Status: Acute Code(s): N18.9 - Chronic kidney disease, unspecified Qualifiers: Chronic kidney disease stage: unspecified stage Qualified Code(s): N18.9 - Chronic kidney disease, unspecified (6) History of right above knee amputation: Status: Acute Code(s): Z89.611 - Acquired absence of right leg above knee (7) History of left below knee amputation: Status: Acute Code(s): Z89.512 - Acquired absence of left leg below knee (8) Hypertension: Status: Chronic Code(s): I10 - Essential (primary) hypertension Qualifiers: Hypertension type: essential hypertension Qualified Code(s): I10 - Essential (primary) hypertension (9) Hyperlipidemia: Status: Chronic Code(s): E78.5 - Hyperlipidemia, unspecified Qualifiers: Hyperlipidemia type: mixed hyperlipidemia Qualified Code(s): E78.2 - Mixed hyperlipidemia (10) Diabetes mellitus: Status: Chronic Code(s): E11.9 - Type 2 diabetes mellitus without complications Qualifiers: Diabetes mellitus complication detail: with peripheral angiopathy with gangrene Diabetes mellitus complication status: with circulatory complication Diabetes mellitus continuous churn buttermaker insulin use: with continuous churn buttermaker use Diabetes mellitus type: type 2 Qualified Code(s): E11.52 - Type 2 diabetes mellitus with diabetic peripheral angiopathy with gangrene; 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 of insulin (11) Peripheral arterial disease: Status: Acute Code(s): I73.9 - Peripheral vascular disease, unspecified (12) Renal artery stenosis: Status: Acute Code(s): I70.1 - Atherosclerosis of renal artery (13) Anemia: Status: Acute Code(s): D64.9 - Anemia, unspecified Qualifiers: Anemia type: unspecified type Qualified Code(s): D64.9 - Anemia, unspecified (14) Chest pain: Status: Acute Code(s): R07.9 - Chest pain, unspecified Qualifiers: Chest pain type: other chest pain Qualified Code(s): R07.89 - Other chest pain (15) Fecal impaction: Status: Acute Code(s): K56.41 - Fecal impaction Meds Home Medications and Allergies Home Medications ?Medication ?Instructions ?Recorded ?Confirmed ?Type aspirin 81 mg chewable tablet 81 mg PO DAILY HEART HEALTH 12/05/19 02/09/25 History atorvastatin 80 mg tablet 80 mg PO HS Cholesterol 12/05/19 02/09/25 History pantoprazole 40 mg tablet,delayed 40 mg PO DAILY Reflux/Acid reflux 12/05/19 02/09/25 History release polyethylene glycol 3350 17 gram 17 g PO DAILYP PRN Constipation 12/05/19 02/09/25 History oral powder packet lactulose 10 gram/15 mL oral 30 ml PO DAILYP PRN Constipation 02/03/21 02/09/25 History solution acetaminophen 325 mg tablet 650 mg (2 x 325 mg) PO Q6HP PRN 04/02/21 02/09/25 Rx Mild To Moderate Pain docusate sodium 100 mg capsule 100 mg PO BIDP PRN Constipation 04/02/21 02/09/25 Rx sacubitril 97 mg-valsartan 103 mg 1 tab PO BID #60 tabs 03/08/23 02/09/25 Rx tablet (Entresto) metformin 1,000 mg tablet 1,000 mg PO BID #180 tabs 12/03/23 02/09/25 Rx multivitamin (One-A-Day Essential 1 tab PO DAILY 01/16/24 02/09/25 History tablet) rivaroxaban 2.5 mg tablet 2.5 mg PO BID Blood thinner 90 02/06/24 02/09/25 Rx days #180 tabs spironolactone 25 mg tablet 25 mg PO DAILY #90 tabs 02/06/24 02/09/25 Rx (Aldactone) insulin human U-100 NPH-regulr 65 unit SQ DAILY 05/24/24 02/09/25 History 70-30 mix 100 unit/mL subcutaneous susp empagliflozin 25 mg tablet 25 mg PO DAILY #90 tabs 08/14/24 02/09/25 Rx (Jardiance) quetiapine 400 mg tablet 400 mg PO HS 08/29/24 02/09/25 History coQ10 (ubiquinol) 100 mg capsule 100 mg PO BID #180 caps 11/13/24 02/09/25 Rx (Qunol Kurtis CoQ10) dextromethorphan-guaifenesin 10 10 ml PO Q6HP PRN Congestion 11/13/24 02/09/25 History mg-100 mg/5 mL oral liquid (Robafen DM Cough) pen needle,diabetic dual safty 30 #100 ea 11/29/24 02/09/25 History gauge x 3/16 (BD AutoShield Duo Pen Needle) venlafaxine 150 mg 150 mg PO DAILY 01/22/25 02/09/25 History capsule,extended release 24 hr gabapentin 100 mg capsule 100 mg PO BID #60 caps 02/06/25 02/09/25 Rx carvedilol 25 mg tablet (Coreg) 25 mg PO 0800,1700 02/09/25 02/09/25 History clonazepam 0.5 mg tablet 0.5 mg PO HS anxiety 02/09/25 02/09/25 History hydrocodone 5 mg-acetaminophen 325 1 tab PO BIDP PRN pain 02/09/25 02/09/25 History mg tablet prazosin 1 mg capsule 3 mg PO HS 02/09/25 02/09/25 History trazodone 50 mg tablet 50 mg PO HS insomnia 02/09/25 02/09/25 History amoxicillin 500 mg-potassium 1 tab PO TID 5 days #15 tabs 02/11/25 Rx clavulanate 125 mg tablet (Augmentin) sodium zirconium cyclosilicate 5 10 g PO TID 30 days #30 ea 02/11/25 Rx gram oral powder packet (Lokelma) New Prescriptions to Start Prescriptions: amoxicillin-pot clavulanate [Augmentin] Edgar Bean sodium zirconium cyclosilicate [Lokelma] Edgar Bean Allergies Allergy/AdvReac Type Severity Reaction Status Date / Time No Known Allergies Allergy Verified 02/05/25 10:06 Discharge Plan Disposition Patient Disposition: er [facility] Condition: Fair Discharge Order Discharge Orders: Discharge Order (Routine); Ordered 02/11/25 Ordered By: Edgar Bean Follow up Plan Follow up with: Loulou Rooney APRN [Nurse Practitioner] - 02/18/25 Prescriptions/Medication Reconciliation: New Lokelma 5 gram Powder In Packet 10 g PO TID 30 Days Qty: 30 0RF amoxicillin-pot clavulanate [Augmentin] 500-125 mg tablet 1 tab PO TID 5 Days Qty: 15 0RF Continued multivitamin [One-A-Day Essential] Tablet 1 tab PO DAILY dextromethorphan-guaifenesin [Robafen DM Cough] 10-100 mg/5 mL liquid 10 ml PO Q6HP PRN (Reason: Congestion) venlafaxine 150 mg capsule,extended release 24hr 150 mg PO DAILY gabapentin 100 mg capsule 100 mg PO BID Qty: 60 0RF metformin 1,000 mg tablet 1,000 mg PO BID Qty: 180 3RF rivaroxaban 2.5 mg tablet 2.5 mg PO BID 90 Days Qty: 180 3RF quetiapine 400 mg tablet 400 mg PO HS (DME) BD AutoShield Duo Pen Needle 30 gauge x 3/16 needle See Rx Instructions .ROUTE .MEDSUPPLY Qty: 100 Rx Instructions: As directed coQ10 (ubiquinol) [Qunol Kurtis CoQ10] 100 mg capsule 100 mg PO BID Qty: 180 3RF lactulose 10 gram/15 mL solution 30 ml PO DAILYP PRN (Reason: Constipation) Jardiance 25 mg tablet 25 mg PO DAILY Qty: 90 3RF pantoprazole 40 MG tablet,delayed release (DR/EC) 40 mg PO DAILY polyethylene glycol 3350 17 GM powder in packet 17 g PO DAILYP PRN (Reason: Constipation) aspirin 81 MG tablet,chewable 81 mg PO DAILY atorvastatin 80 MG tablet 80 mg PO HS acetaminophen 325 MG tablet 650 mg PO Q6HP PRN (Reason: Mild To Moderate Pain) 0RF docusate sodium 100 MG capsule 100 mg PO BIDP PRN (Reason: Constipation) 0RF prazosin 1 mg capsule 3 mg PO HS carvedilol [Coreg] 25 mg tablet 25 mg PO 0800,1700 Rx Instructions: must administer with a meal/food trazodone 50 mg tablet 50 mg PO HS hydrocodone-acetaminophen 5-325 mg tablet 1 tab PO BIDP PRN (Reason: pain) clonazepam 0.5 mg tablet 0.5 mg PO HS Held insulin NPH and regular human 100 unit/mL (70-30) suspension 65 unit SQ DAILY Hold Instructions: Resume on 02/25/25. Did not require during admission. Resume if appropriate. Entresto 97-103 mg tablet 1 tab PO BID Qty: 60 3RF Hold Instructions: Resume on 02/25/25. Has FAVIO, and blood pressures were stable without this medication. Can be resumed once FAVIO resolves and if needed for BP. spironolactone [Aldactone] 25 mg tablet 25 mg PO DAILY Qty: 90 3RF Hold Instructions: Resume on 03/04/25. Hold due to FAVIO, hyperkalemia. Problem Reconciliation Problems Reviewed?: Yes Patient Discharge Instructions Patient Instructions: Acute Kidney Injury, Chronic Kidney Disease, DI for Chest Pain, DI for Leukocytosis Print Language: Mohawk Providers Primary Care Provider: Sanjeev Parra Admit Provider: Edgar Bean Attending Provider: Edgar Bean
[2025-02-11 16:00] VITALS: BP 150/85; PULSE 72; PULSE 80; RESP 14; TEMP 36.7; O2SAT 98
[2025-02-11] MEDS: humaLOG 100 UNITS/ML 10ML VIAL (SSI) SUBCUT ×2 (16:53→20:10)
--- NOTE | 2025-02-11 19:47 | PC.NURSE ---
called report to Estrellita covarrubias [place] for pt d/c
[2025-02-11 20:00] VITALS: BP 158/89; PULSE 74; RESP 16; TEMP 37; O2SAT 99
[2025-02-11] MEDS: QUETIAPINE 100MG TABLET 400 MG PO (20:00)
[2025-02-11] MEDS: RIVAROXABAN 2.5MG TABLET 2.5 MG PO (20:00)
[2025-02-11] MEDS: PANTOPRAZOLE 40MG TABLET 40 MG PO (20:00)
[2025-02-11] MEDS: ATORVASTATIN 40MG TABLET 80 MG PO (20:00)
[2025-02-11] MEDS: TRAZODONE 50MG TABLET 50 MG PO (20:00)
[2025-02-11] MEDS: PRAZOSIN 1MG CAP 3 MG PO (20:01)
[2025-02-11] MEDS: CARVEDILOL 25MG TABLET 25 MG PO (20:10)
[2025-02-11 20:13] LABS: POC Glucose,Bedside 177 (70-110)
[2025-02-11 20:42] LABS: POC Glucose,Bedside 154 (70-110)
== END 2025-02-11 21:39 ==
LOC: ER 23:29 → 2ND 02-09 07:59
PROVIDERS: Emergency Medicine; Nurse Practitioner Family; Physician Assistant; Admitting Provider Student in an Organized Health Care Education/Training Program; Emergency Provider Student in an Organized Health Care Education/Training Program; PCP Family Medicine; Visit Provider Student in an Organized Health Care Education/Training Program
DX: R07.9 Chest pain, unspecified (principal); I50.20 Unspecified systolic (congestive) heart failure; R29.6 Repeated falls; E87.5 Hyperkalemia; I25.10 Atherosclerotic heart disease of native coronary artery without angina pectoris; N18.9 Chronic kidney disease, unspecified; Z89.611 Acquired absence of right leg above knee; Z89.512 Acquired absence of left leg below knee; E11.52 Type 2 diabetes mellitus with diabetic peripheral angiopathy with gangrene; Z79.4 Long term (current) use of insulin; I70.1 Atherosclerosis of renal artery; D50.9 Iron deficiency anemia, unspecified; K56.41 Fecal impaction; E11.22 Type 2 diabetes mellitus with diabetic chronic kidney disease; I13.0 Hypertensive heart and chronic kidney disease with heart failure and stage 1 through stage 4 chronic kidney disease, or unspecified chronic kidney disease; E78.5 Hyperlipidemia, unspecified; Z95.1 Presence of aortocoronary bypass graft; Z79.01 Long term (current) use of anticoagulants; Z79.899 Other long term (current) drug therapy; N17.9 Acute kidney failure, unspecified; K52.89 Other specified noninfective gastroenteritis and colitis
CPT/HCPCS: 36415; 70450; 71275; 72125; 72128; 72131; 72192; 74177; 80048; 80053; 81001; 82803; 82962; 83605; 83690; 83735; 83880; 84145; 84484; 85007; 85025; 85027; 85651; 86140; 87040; 87633; 93005; 93306; 99285; G0378; J1650; J1885; J2405; J2543; J3372; J3475; J7030; J7120; Q9957; Q9963; Q9967

== ENCOUNTER 2025-02-13 07:41 | Outpatient (CLI) | payer MEDICAID, SELFPAY ==
[2025-02-13 07:59] LABS: Basophils # 0.1 K/mm3 (0-0.2); Basophils % 0.3 % (0.1-2.0); Eosinophils # 0.1 K/mm3 (0.0-0.4); Eosinophils % 0.8 % (0.1-12.0); Hematocrit 30.8 % (42.0-52.0); Hemoglobin 9.4 g/dL (14.1-18.0); Lymphocytes # 14.4 K/mm3 (0.7-4.5); Lymphocytes % 79.7 % (10-50); Mean Corpuscular HGB Conc 30.5 g/dL (31.8-35.4); Mean Corpuscular Hemoglobin 29.4 pg (27.0-31.2); Mean Corpuscular Volume 96.3 fl (80-94); Mean Platelet Volume 10.2 fl (7.4-10.4); Monocytes # 1.2 K/mm3 (0.1-1.0); Monocytes % 6.4 % (1.7-9.3); Neutrophils # 2.3 K/mm3 (1.8-7.8); Platelet Count 296 K/mm3 (142-424); Red Cell Distribution Width 14.2 % (11.5-17.5); White Blood Count 18.1 K/mm3 (4.8-10.8)
[2025-02-13 08:06] LABS: Chloride 108 mmol/L (98-107); Potassium 4.2 mmoL/L (3.5-5.1); Sodium 141 mmol/L (136-145)
[2025-02-13 08:09] LABS: Anion Gap 13.2 mEq/L (5-15); Blood Urea Nitrogen 18 mg/dl (9-20); Carbon Dioxide 24 mmol/L (22.0-30.0); Estimated Glomerular Filt Rate 44 ml/min (>60); GFR (African American) 53 ML/MIN (>60); Glucose 102 mg/dl (74-100)
[2025-02-13 08:50] LABS: Neutrophils % 12.6 % (37.0-80.0)
[2025-02-13 08:54] LABS: MANUAL DIFFERENTIAL MANUAL DIFFERENTIAL (MANUAL DIFF)
[2025-02-13 09:32] LABS: Lymphocytes % 53 % (10-50); Monocytes % 8 % (2-9); Neutrophils % 39 % (42-76); Total Cells Counted 100
[2025-02-13 09:34] LABS: Platelet Estimate Normal; RBC Morphology Normal
== END 2025-02-13 23:59 | disposition home or self-care (01) ==
PROVIDERS: PCP Nurse Practitioner Family; Visit Provider Nurse Practitioner Family
DX: E88.9 Metabolic disorder, unspecified (principal); E11.9 Type 2 diabetes mellitus without complications
CPT/HCPCS: 36415; 80048; 85007; 85025; 85027

== ENCOUNTER 2025-02-16 13:02 | Observation (INO) | payer MEDICAID, SELFPAY ==
[2025-02-16] VITALS (11 sets, daily range): BP systolic 126–189; BP diastolic 7–87; PULSE 72–88; RESP 16–20; TEMP 36.7–36.8; O2SAT 95–98; BMI 37.4; BMI 36.6
--- NOTE | 2025-02-16 13:11 | ECG_ITS ---
APPROVED REPORT Exam: Resting ECG HR:83 bpm ECG Measurements Heart Rate 83 AXES WI 172 P 70 QRSd 96 QRS -7 QT 399 T 159 QTc 439 Conclusion SINUS RHYTHM Nonspecific ST changes without acute STEMI. Normal intervals Electronically signed by : JIAN TONEY, 02/16/2025 16:34:46
--- NOTE | 2025-02-16 13:18 | CT_ITS ---
PROCEDURE INFORMATION: Exam: CT Head Without Contrast Exam date and time: 02/16/2025 1:57 PM Age: 64 years old Clinical indication: Altered mental status/memory loss; Additional info: AMS TECHNIQUE: Imaging protocol: Computed tomography of the head without contrast. Radiation optimization: All CT scans at this facility use at least one of these dose optimization techniques: automated exposure control; mA and/or kV adjustment per patient size (includes targeted exams where dose is matched to clinical indication); or iterative reconstruction. COMPARISON: CT HEAD/BRAIN WO CON 02/08/2025 9:42 PM FINDINGS: Brain: 10 mm hyperdense nodule in the right costophrenic angle. (series 3, image 30). 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 Differential meningioma and schwannoma Recommend MRI. No acute intracranial hemorrhage.. There is mild diffuse heterogeneity of the white matter attenuation, consistent with chronic white matter ischemic changes. Mild cerebral atrophy Cerebral ventricles: No ventriculomegaly. Paranasal sinuses: Visualized sinuses are unremarkable. No fluid levels. Mastoid air cells: Visualized mastoid air cells are well aerated. Bones: Unremarkable. No acute fracture. Soft tissues: Unremarkable. IMPRESSION: 1. 10 mm hyperdense nodule in the right costophrenic angle. (series 3, image 30). 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 Differential meningioma and schwannoma Recommend MRI. 2. No acute intracranial hemorrhage.. THIS REPORT CONTAINS FINDINGS THAT MAY BE CRITICAL TO PATIENT CARE. The findings were verbally communicated via telephone conference with Mariana Marshall at 2:40 PM EDT on 02/16/2025. The findings were acknowledged and understood.
--- NOTE | 2025-02-16 13:18 | XR_ITS ---
PROCEDURE INFORMATION: Exam: XR Chest Exam date and time: 02/16/2025 2:00 PM Age: 64 years old Clinical indication: Other: AMS TECHNIQUE: Imaging protocol: Radiologic exam of the chest. Views: 1 view. COMPARISON: CT ANGIO CHEST PE PROTOCOL 02/08/2025 10:05 PM FINDINGS: Lungs: Atelectasis in the left midlung . No focal consolidation.. Pleural spaces: Unremarkable. No pleural effusion. No pneumothorax. Heart/Mediastinum: Stable cardiomegaly Bones/joints: Median sternotomy. Osseous structures are stable IMPRESSION: Atelectasis in the left midlung . No focal consolidation..
[2025-02-16 13:20] LABS: Coronavirus 19, PCR Not Detected (NotDetected); Influenza A, PCR Not Detected (NotDetected); Influenza B, PCR Not Detected (NotDetected)
--- NOTE | 2025-02-16 13:41 | HMH.EDGENADL ---
Discharge Plan Disposition Patient Disposition: Admitted Chief Complaint: Psychiatric Symptoms Prescriptions Prescriptions: No Action multivitamin [One-A-Day Essential] Tablet 1 tab PO DAILY dextromethorphan-guaifenesin [Robafen DM Cough] 10-100 mg/5 mL liquid 10 ml PO Q6HP PRN (Reason: Congestion) insulin NPH and regular human 100 unit/mL (70-30) suspension 65 unit SQ DAILY venlafaxine 150 mg capsule,extended release 24hr 150 mg PO DAILY Entresto 97-103 mg tablet 1 tab PO BID Qty: 60 3RF metformin 1,000 mg tablet 1,000 mg PO BID Qty: 180 3RF spironolactone [Aldactone] 25 mg tablet 25 mg PO DAILY Qty: 90 3RF rivaroxaban 2.5 mg tablet 2.5 mg PO BID 90 Days Qty: 180 3RF quetiapine 400 mg tablet 400 mg PO HS (DME) BD AutoShield Duo Pen Needle 30 gauge x 3/16 needle See Rx Instructions .ROUTE .MEDSUPPLY Qty: 100 Rx Instructions: As directed coQ10 (ubiquinol) [Qunol Kurtis CoQ10] 100 mg capsule 100 mg PO BID Qty: 180 3RF Veltassa 8.4 gram powder in packet 8.4 g PO DAILY Qty: 30 0RF lactulose 10 gram/15 mL solution 30 ml PO DAILYP PRN (Reason: Constipation) Jardiance 25 mg tablet 25 mg PO DAILY Qty: 90 3RF gabapentin 100 mg capsule 100 mg PO BID Qty: 60 0RF pantoprazole 40 MG tablet,delayed release (DR/EC) 40 mg PO DAILY polyethylene glycol 3350 17 GM powder in packet 17 g PO DAILYP PRN (Reason: Constipation) aspirin 81 MG tablet,chewable 81 mg PO DAILY atorvastatin 80 MG tablet 80 mg PO HS acetaminophen 325 MG tablet 650 mg PO Q6HP PRN (Reason: Mild To Moderate Pain) 0RF docusate sodium 100 MG capsule 100 mg PO BIDP PRN (Reason: Constipation) 0RF prazosin 1 mg capsule 3 mg PO HS carvedilol [Coreg] 25 mg tablet 25 mg PO 0800,1700 Rx Instructions: must administer with a meal/food trazodone 50 mg tablet 50 mg PO HS hydrocodone-acetaminophen 5-325 mg tablet 1 tab PO BIDP PRN (Reason: pain) clonazepam 0.5 mg tablet 0.5 mg PO HS amoxicillin-pot clavulanate [Augmentin] 500-125 mg tablet 1 tab PO TID 5 Days Qty: 15 0RF Referrals Follow up/Referrals: Provider,Referral, MD [Primary Care Provider] - See instructions Clinical Impressions Clinical Impression: AMS (altered mental status), Leukocytosis, Suicidal ideation, Brain lesion, FAVIO (acute kidney injury), Chronic hyperkalemia Print Language Print Language: Frisian Discharge ED Provider: García Flores General Adult HPI <Mariana Marshall, - Last Filed: 02/16/25 15:48> General Chief complaint: Psychiatric Symptoms Stated complaint: suicidal Time Seen by Provider: 02/16/25 13:03 Mode of Arrival: Ambulatory Source of Information: Patient Description of Symptoms (Recalled from ER Triage Doc. by RN): pt called 911 bc he states he is suicidal, does not want to be at [place] anymore, has tried to commit in the past by standing infront a car, pt is currently a bilateral BKA, pt has no active plan currently, pt has a very flat affect upon triage, pt palced in gown and all suicide precautions put in place as well as 1:1 obs History of Present Illness HPI narrative: This patient is a 64-year-old male with a history of bipolar disorder, CKD, CVA, type 2 diabetes, hypertension, hyperlipidemia, CAD status post CABG, PAD, obesity, right AKA, left BKA, who is a long-term resident at [facility] slightly presenting with concern for suicidal ideation. Patient states that he has been suicidal and depressed for years now because he does not want to live at [facility]. He states that he does not like the people there and has been there too long. He notes that he does not want to go back there. He denies any physical concerns or complaints, but I asked him orientation questions and is not able to answer them appropriately. He is also very evasive with his answers to his questions. I asked why he does not like it [facility], and he states that he is not safe there because of the people there. I asked if it staff or residents, he states that everyone. He notes that they are trying to take all of his documentation. Patient denies any plan for suicide, just noting that he has thoughts of not wanting to be here. This has been going on for very long time but is worse since yesterday according to the patient. Of note, he was recently discharged after brief admission, and multiple medication changes have been made per SNF. Related Data Home Medications ?Medication ?Instructions ?Recorded ?Confirmed aspirin 81 mg chewable tablet 81 mg PO DAILY HEART HEALTH 12/05/19 02/16/25 atorvastatin 80 mg tablet 80 mg PO HS Cholesterol 12/05/19 02/16/25 pantoprazole 40 mg tablet,delayed 40 mg PO DAILY Reflux/Acid reflux 12/05/19 02/16/25 release polyethylene glycol 3350 17 gram 17 g PO DAILYP PRN Constipation 12/05/19 02/16/25 oral powder packet lactulose 10 gram/15 mL oral 30 ml PO DAILYP PRN Constipation 02/03/21 02/16/25 solution multivitamin (One-A-Day Essential 1 tab PO DAILY 01/16/24 02/16/25 tablet) insulin human U-100 NPH-regulr 65 unit SQ DAILY 05/24/24 02/16/25 70-30 mix 100 unit/mL subcutaneous susp quetiapine 400 mg tablet 400 mg PO HS 08/29/24 02/16/25 dextromethorphan-guaifenesin 10 10 ml PO Q6HP PRN Congestion 11/13/24 02/16/25 mg-100 mg/5 mL oral liquid (Robafen DM Cough) pen needle,diabetic dual safty 30 #100 ea 11/29/24 02/16/25 gauge x 3/16 (BD AutoShield Duo Pen Needle) venlafaxine 150 mg 150 mg PO DAILY 01/22/25 02/16/25 capsule,extended release 24 hr carvedilol 25 mg tablet (Coreg) 25 mg PO 0800,1700 02/09/25 02/16/25 clonazepam 0.5 mg tablet 0.5 mg PO HS anxiety 02/09/25 02/16/25 hydrocodone 5 mg-acetaminophen 325 1 tab PO BIDP PRN pain 02/09/25 02/16/25 mg tablet prazosin 1 mg capsule 3 mg PO HS 02/09/25 02/16/25 trazodone 50 mg tablet 50 mg PO HS insomnia 02/09/25 02/16/25 Previous Rx's ?Medication ?Instructions ?Recorded acetaminophen 325 mg tablet 650 mg (2 x 325 mg) PO Q6HP PRN 04/02/21 Mild To Moderate Pain docusate sodium 100 mg capsule 100 mg PO BIDP PRN Constipation 04/02/21 sacubitril 97 mg-valsartan 103 mg 1 tab PO BID #60 tabs 03/08/23 tablet (Entresto) metformin 1,000 mg tablet 1,000 mg PO BID #180 tabs 12/03/23 rivaroxaban 2.5 mg tablet 2.5 mg PO BID Blood thinner 90 02/06/24 days #180 tabs spironolactone 25 mg tablet 25 mg PO DAILY #90 tabs 02/06/24 (Aldactone) empagliflozin 25 mg tablet 25 mg PO DAILY #90 tabs 08/14/24 (Jardiance) coQ10 (ubiquinol) 100 mg capsule 100 mg PO BID #180 caps 11/13/24 (Qunol Kurtis CoQ10) amoxicillin 500 mg-potassium 1 tab PO TID 5 days #15 tabs 02/11/25 clavulanate 125 mg tablet (Augmentin) patiromer calcium sorbitex 8.4 8.4 g PO DAILY #30 ea 02/12/25 gram oral powder packet (Veltassa) gabapentin 100 mg capsule 100 mg PO BID #60 caps 02/15/25 Allergies Allergy/AdvReac Type Severity Reaction Status Date / Time No Known Allergies Allergy Verified 02/12/25 10:27 [facility] <Mariana Marshall DO - Last Filed: 02/16/25 15:48> [facility] Disclaimer: The information contained in this section may have been updated after the patient was seen, as this information can be updated by other users. Medical History Falls Dry skin Edema of amputation stump of left lower extremity Pain of amputation stump of left lower extremity Hyperkalemia Lethargy Fecal impaction Chest pain Peripheral arterial disease Colon cancer screening Anemia HFrEF (heart failure with reduced ejection fraction) Visual disturbance Systolic heart failure Renal artery stenosis LV dysfunction COVID-19 Below-knee amputation of left lower extremity Diabetes mellitus with diabetic neuropathy Acute kidney injury Dehiscence of amputation stump Postprocedural (acute) (chronic) kidney failure Non-pressure chronic ulcer of unspecified part of right lower leg with unspecified severity Peptic ulcer, site unspecified, unspecified as acute or chronic, without hemorrhage or perforation Chronic or unspecified duodenal ulcer with hemorrhage Acute respiratory failure with hypoxia 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 Chronic osteomyelitis of left foot Overweight (BMI 25.0-29.9) Above knee amputation of right lower extremity Postoperative wound dehiscence Hyperlipidemia Hypertension Coronary artery disease Ischemic ulcer of left foot Peripheral arterial occlusive disease Onychodystrophy Surgical History History of right above knee amputation History of left below knee amputation History of colonoscopy Status post transmetatarsal amputation of left foot History of coronary artery bypass graft Social History Smoking Status: Former smoker tobacco type: cigarettes packs per day: 0 second hand exposure: No alcohol intake: never substance use type: denies use current occupational status: retired Travel in the last 8 weeks: None household members: other housing: [facility] current occupational exposures/hazards: No caffeine: No Have you lived/traveled outside [place] in past 30 days?: No Contact w/someone who lives/traveled outside US past 30 days?: No Exposure to someone with infectious disease in past 14 days?: No Do you have a fever (greater than 100.4 F or 38 C)?: No Have you tested positive for COVID-19: No Exposed to someone with COVID-19 in past 14 days?: No Do you have a sore throat?: No Do you have a cough?: No Do you have any weakness?: No Do you have any diarrhea?: No Are you experiencing any unusual bleeding?: No Do you have any muscle aches/pain?: No Do you have any abdominal pain?: No Are you experiencing loss of taste or smell?: No Other Medical History Have you received the Flu Vaccine for this season: No Have you received the Pneumonia Vaccine: Yes (10/03/17) <Mariana Marshall DO - Last Filed: 02/16/25 15:48> ROS Obtained: Yes All systems reviewed & no additional complaints except as documented Physical Exam <Mariana Marshall DO - Last Filed: 02/16/25 15:48> General General appearance: alert, in no apparent distress and obese Head Head exam: atraumatic and normocephalic Eye Eye exam: Present normal appearance, PERRL and EOMI ENT ENT exam: Present normal exam, normal oropharynx, mucous membranes moist and normal external ear exam Neck Neck exam: Present normal inspection, full ROM and trachea midline; Absent tenderness Chest Chest inspection: Present normal inspection and symmetric chest wall rise; Absent tenderness Respiratory Respiratory exam: Present normal lung sounds bilaterally; Absent respiratory distress, wheezes, stridor or accessory muscle use Cardiovascular Cardiovascular exam: Present regular rate and normal rhythm Abdominal Exam Abdominal exam: Present soft; Absent distention, tenderness or guarding Extremities Exam Extremities exam: Present normal inspection, full ROM and normal capillary refill; Absent tenderness or edema Back Exam Back exam: Present normal inspection and full ROM; Absent tenderness Neurological Exam Neurological exam: Present alert, CN II-XII intact and other (At his neurologic baseline without focal deficit); Absent oriented X3 (Oriented to person and place but not time) or motor sensory deficit Psychiatric Psychiatric exam: Present flat affect and other (Flat affect, slow to respond, tearful) Skin Skin exam: Present warm and dry Medical Decision Making <Mariana Marshall, DO - Last Filed: 02/16/25 15:48> Medical Records Medical records reviewed: Yes I reviewed the patient's medical records. Screening: Per USPSTF and CDC recommendations, given the prevalence of disease in our region, it is our hospital?s policy to screen for HIV and viral Hepatitis for all patients aged 18 and over and those with ongoing risk factors. [place] Inquiry Pt receiving controlled substance: No Vital Signs: 02/16/25 13:00 02/16/25 13:02 02/16/25 13:30 Temperature 98.2 F Temperature Source Oral Pulse Rate 81 72 Pulse Rate [Left Radial] 72 Respiratory Rate 20 Blood Pressure 154/7 H 152/71 H Blood Pressure [Right Arm] 154/74 H Blood Pressure Mean Blood Pressure Mean [Right Arm] 100 02 Sat by Pulse Oximetry 98 98 98 Oxygen Delivery Method Room Air Room Air Room Air 02/16/25 14:16 02/16/25 14:30 02/16/25 15:01 Temperature Temperature Source Pulse Rate 88 73 76 Pulse Rate [Left Radial] Respiratory Rate Blood Pressure 158/78 H 169/82 H 174/84 H Blood Pressure [Right Arm] Blood Pressure Mean Blood Pressure Mean [Right Arm] 02 Sat by Pulse Oximetry 97 98 97 Oxygen Delivery Method Room Air Room Air Room Air 02/16/25 15:31 Temperature Temperature Source Pulse Rate 78 Pulse Rate [Left Radial] Respiratory Rate Blood Pressure 189/87 H Blood Pressure [Right Arm] Blood Pressure Mean 99 Blood Pressure Mean [Right Arm] 02 Sat by Pulse Oximetry 98 Oxygen Delivery Method Room Air Lab Data Lab results reviewed: Yes I reviewed the patient's lab results. Lab Results 02/16/25 13:10: SARS-CoV-2 (PCR) Not detected, Influenza A Untype (PCR) Not detected, Influenza Type B (PCR) Not detected 02/16/25 13:18: VBG pH 7.35, VBG pCO2 35.2, VBG pO2 80.4 H, VBG HCO3 19.1 L, VBG Total CO2 20.2 L, VBG O2 Saturation 95.4 H, VBG Base Excess -6.4 L, VBG Lactic Acid 1.3 02/16/25 13:37: WBC 19.0 H, RBC 3.29 L, Hgb 9.7 L, Hct 31.7 L, MCV 96.4 H, MCH 29.5, MCHC 30.6 L, RDW 14.1, Plt Count 289, MPV 10.0, Neut % (Auto) 14.0 L, Lymph % (Auto) 80.1 H, [place] % (Auto) 4.9, Eos % (Auto) 0.5, Baso % (Auto) 0.3, Neut # (Auto) 2.7, Lymph # (Auto) 15.2 H, [place] # (Auto) 0.9, Eos # (Auto) 0.1, Baso # (Auto) 0.1, Total Counted 100, Neutrophils % (Manual) 18 L, Lymphocytes % (Manual) 80 H, Monocytes % (Manual) 2, Differential Comment Comment, Platelet Estimate Normal, RBC Morphology Normal, Poikilocytosis 1+, Anisocytosis 1+, PT 14.0 H, INR 1.28 H, Sodium 139, Potassium 5.5 H, Chloride 106, Carbon Dioxide 24, Anion Gap 14.5, BUN 25 H, Creatinine 1.90 H, Estimated Creat Clear 57, Estimated GFR 36 L, Est GFR ( Amer) 44 L, Glucose 94, Calcium 9.4, Phosphorus 3.7, Magnesium 1.9, Total Bilirubin 0.5, AST 37, ALT 12, Alkaline Phosphatase 87, Troponin I 0.02, C-Reactive Protein 2.1, Total Protein 7.9, Albumin 4.2, Globulin 3.7 H, Albumin/Globulin Ratio 1.1, Procalcitonin 0.077, TSH 6.84 H, Thyroxine (T4) 7.7 02/16/25 14:15: Ammonia < 9 L 02/16/25 15:15: Urine Color Yellow, Urine Appearance Clear, Urine pH 6.0, Ur Specific [place] 1.025, Urine Protein Negative, Urine Glucose (UA) 3+, Urine Ketones 2+, Urine Blood 2+ A, Urine Nitrate Negative, Urine Bilirubin Negative, Urine Urobilinogen 0.2, Ur Leukocyte Esterase Negative, Urine RBC 10-20, Urine WBC 5-10, Ur Squamous Epith Cells 5-10, Ur Renal Epithelial Cell 5-10, Urine Bacteria 1+, WBC Casts Occasional 02/16/25 13:37 02/16/25 13:37 Orders (Tests/Meds): ORDERS Category Date Time Status CT head/brain wo con Stat Cat Scan 02/16/25 13:18 Completed CXR --portable [XR chest portable] Stat Exams 02/16/25 13:18 Completed Ammonia Stat Lab 02/16/25 14:15 Completed CRP [C-Reactive Protein] Stat Lab 02/16/25 13:37 Completed Complete Blood Count Auto Diff Stat Lab 02/16/25 13:37 Completed Comprehensive Metabolic Panel Stat Lab 02/16/25 13:37 Completed MAG [Magnesium] Stat Lab 02/16/25 13:37 Completed PHOS [Phosphorous] Stat Lab 02/16/25 13:37 Completed PHOS [Phosphorous] Stat Lab 02/16/25 16:14 Ordered PT/INR [Prothrombin Time INR] Stat Lab 02/16/25 13:37 Completed Procalcitonin Stat Lab 02/16/25 13:37 Completed Rapid PCR Covid and Flu A/B Stat Lab 02/16/25 13:10 Completed T4 (Thyroxine) Stat Lab 02/16/25 13:37 Completed TSH [Thyroid Stimulating Hormone] Stat Lab 02/16/25 13:37 Completed Trop I [Troponin I] Stat Lab 02/16/25 13:37 Completed Troponin I Q3H Lab 02/16/25 16:30 Ordered Troponin I Q3H Lab 02/16/25 19:30 Ordered UA [Urinalysis and Microscopic] Stat Lab 02/16/25 15:15 Completed Blood Culture Stat Micro 02/16/25 15:45 Ordered Urine Culture Stat Micro 02/16/25 13:18 Received VBG [Venous Blood Gas] Stat RT 02/16/25 13:18 Completed ECG Data Tracing #1: I reviewed this ECG and interpreted as documented below: Normal sinus rhythm with a ventricular rate of [address]/T wave changes without acute STEMI. Normal intervals ECG initial impression date: 02/16/25 ECG initial impression time: 13:44 Medical Decision Narrative: In summary, this patient is a 64-year-old male presenting to the Emergency Department for evaluation of suicidal ideation states that he wants to because he does not want to live at [facility] anymore, no active plan. Of note, he is disoriented which is new according to nursing staff who is familiar with the patient. He denies any physical concerns or complaints but has flat affect and is slow to respond. He has had a lot of recent medication changes. Differential diagnoses considered include but are not limited to suicidal ideation, depression, UTI, FAVIO, metabolic derangement, hepatic encephalopathy, medication adverse reaction. Ruling out the most morbid conditions drove assessment. It should be noted patient's history includes extensive cardiovascular history and peripheral vascular history, right AKA left BKA, CKD, prior CVA, diabetes, bipolar disorder among others which may or may not be at goal therapy. This complicates all aspects of care by increasing patient's risk for morbidity. I reviewed patient's past medical records and noted recent admission for stercoral colitis, patient was discharged with new bowel regimen. He also had FAVIO and hyperkalemia. He was started on Lokelma and spironolactone was discontinued.. On exam, the patient is lying in bed. He has flat affect and is slow to respond. He is disoriented to time. He denies any physical concerns or complaints. He is at his neurologic baseline, cardiopulmonary and abdominal exams are reassuring. He complains of suicidal thoughts because he does not want to live at [facility] anymore, but he does not have any active plan. He notes this been going on for years, so I do not feel that 72-hour hold or emergent psychiatric evaluation is warranted at this time, though he certainly would benefit from this on an outpatient basis. Workup included lab evaluation to evaluate for infectious, metabolic, or cardiac derangements as a cause of encephalopathy as well as CT head without contrast, chest x-ray, and EKG. EKG obtained is reassuring.. I independently interpreted CT scan of the head without contrast and chest x-ray prior to the radiologist read and noted no large focal consolidation concerning for pneumonia, no large intracranial hemorrhage. Please see their read for final interpretation. Radiology notes concern for a 13 mm lesion at the cerebellar pontine angle concerning for meningioma versus schwannoma. I had an interactive discussion with Dr. Soliman the radiologist regarding this because he had a CT head 02/08/2025 that does not note this lesion. She notes that it was present there and she believes they had just missed it. labs were obtained that demonstrated leukocytosis, chronic elevation in creatinine that slightly worse than when he was discharged, hyperkalemia that slightly worse than when he was discharged but was present on prior labs as well.. EKG obtained does not demonstrate any acute STEMI, troponin negative initially. Urinalysis pending. I called and had an interactive discussion with neurosurgery at Dr. Holley -he advises nothing to do as far as this brain lesion. He does not think it would be contributing to his current presentation. He advises follow up outpatient with Dr. Barragan nonemergently. Patient care signed of the oncoming provider, Dr. Flores, pending UA, reassessment, disposition. <García Flores MD - Last Filed: 02/16/25 16:25> Vital Signs: 02/16/25 13:00 02/16/25 13:02 02/16/25 13:30 Temperature 98.2 F Temperature Source Oral Pulse Rate 81 72 Pulse Rate [Left Radial] 72 Respiratory Rate 20 Blood Pressure 154/7 H 152/71 H Blood Pressure [Right Arm] 154/74 H Blood Pressure Mean Blood Pressure Mean [Right Arm] 100 02 Sat by Pulse Oximetry 98 98 98 Oxygen Delivery Method Room Air Room Air Room Air 02/16/25 14:16 02/16/25 14:30 02/16/25 15:01 Temperature Temperature Source Pulse Rate 88 73 76 Pulse Rate [Left Radial] Respiratory Rate Blood Pressure 158/78 H 169/82 H 174/84 H Blood Pressure [Right Arm] Blood Pressure Mean Blood Pressure Mean [Right Arm] 02 Sat by Pulse Oximetry 97 98 97 Oxygen Delivery Method Room Air Room Air Room Air 02/16/25 15:31 Temperature Temperature Source Pulse Rate 78 Pulse Rate [Left Radial] Respiratory Rate Blood Pressure 189/87 H Blood Pressure [Right Arm] Blood Pressure Mean 99 Blood Pressure Mean [Right Arm] 02 Sat by Pulse Oximetry 98 Oxygen Delivery Method Room Air Lab Data Lab Results 02/16/25 13:10: SARS-CoV-2 (PCR) Not detected, Influenza A Untype (PCR) Not detected, Influenza Type B (PCR) Not detected 02/16/25 13:18: VBG pH 7.35, VBG pCO2 35.2, VBG pO2 80.4 H, VBG HCO3 19.1 L, VBG Total CO2 20.2 L, VBG O2 Saturation 95.4 H, VBG Base Excess -6.4 L, VBG Lactic Acid 1.3 02/16/25 13:37: WBC 19.0 H, RBC 3.29 L, Hgb 9.7 L, Hct 31.7 L, MCV 96.4 H, MCH 29.5, MCHC 30.6 L, RDW 14.1, Plt Count 289, MPV 10.0, Neut % (Auto) 14.0 L, Lymph % (Auto) 80.1 H, [place] % (Auto) 4.9, Eos % (Auto) 0.5, Baso % (Auto) 0.3, Neut # (Auto) 2.7, Lymph # (Auto) 15.2 H, [place] # (Auto) 0.9, Eos # (Auto) 0.1, Baso # (Auto) 0.1, Total Counted 100, Neutrophils % (Manual) 18 L, Lymphocytes % (Manual) 80 H, Monocytes % (Manual) 2, Differential Comment Comment, Platelet Estimate Normal, RBC Morphology Normal, Poikilocytosis 1+, Anisocytosis 1+, PT 14.0 H, INR 1.28 H, Sodium 139, Potassium 5.5 H, Chloride 106, Carbon Dioxide 24, Anion Gap 14.5, BUN 25 H, Creatinine 1.90 H, Estimated Creat Clear 57, Estimated GFR 36 L, Est GFR ( Amer) 44 L, Glucose 94, Calcium 9.4, Phosphorus 3.7, Magnesium 1.9, Total Bilirubin 0.5, AST 37, ALT 12, Alkaline Phosphatase 87, Troponin I 0.02, C-Reactive Protein 2.1, Total Protein 7.9, Albumin 4.2, Globulin 3.7 H, Albumin/Globulin Ratio 1.1, Procalcitonin 0.077, TSH 6.84 H, Thyroxine (T4) 7.7 02/16/25 14:15: Ammonia < 9 L 02/16/25 15:15: Urine Color Yellow, Urine Appearance Clear, Urine pH 6.0, Ur Specific [place] 1.025, Urine Protein Negative, Urine Glucose (UA) 3+, Urine Ketones 2+, Urine Blood 2+ A, Urine Nitrate Negative, Urine Bilirubin Negative, Urine Urobilinogen 0.2, Ur Leukocyte Esterase Negative, Urine RBC 10-20, Urine WBC 5-10, Ur Squamous Epith Cells 5-10, Ur Renal Epithelial Cell 5-10, Urine Bacteria 1+, WBC Casts Occasional Orders (Tests/Meds): ORDERS Category Date Time Status CT head/brain wo con Stat Cat Scan 02/16/25 13:18 Completed CXR --portable [XR chest portable] Stat Exams 02/16/25 13:18 Completed Ammonia Stat Lab 02/16/25 14:15 Completed CRP [C-Reactive Protein] Stat Lab 02/16/25 13:37 Completed Complete Blood Count Auto Diff Stat Lab 02/16/25 13:37 Completed Comprehensive Metabolic Panel Stat Lab 02/16/25 13:37 Completed MAG [Magnesium] Stat Lab 02/16/25 13:37 Completed PHOS [Phosphorous] Stat Lab 02/16/25 13:37 Completed PHOS [Phosphorous] Stat Lab 02/16/25 16:14 Ordered PT/INR [Prothrombin Time INR] Stat Lab 02/16/25 13:37 Completed Procalcitonin Stat Lab 02/16/25 13:37 Completed Rapid PCR Covid and Flu A/B Stat Lab 02/16/25 13:10 Completed T4 (Thyroxine) Stat Lab 02/16/25 13:37 Completed TSH [Thyroid Stimulating Hormone] Stat Lab 02/16/25 13:37 Completed Trop I [Troponin I] Stat Lab 02/16/25 13:37 Completed Troponin I Q3H Lab 02/16/25 16:30 Ordered Troponin I Q3H Lab 02/16/25 19:30 Ordered UA [Urinalysis and Microscopic] Stat Lab 02/16/25 15:15 Completed Blood Culture Stat Micro 02/16/25 15:45 Ordered Urine Culture Stat Micro 02/16/25 13:18 Received VBG [Venous Blood Gas] Stat RT 02/16/25 13:18 Completed Medical Decision Narrative: In summary, this patient is a 64-year-old male presenting to the Emergency Department for evaluation of suicidal ideation states that he wants to because he does not want to live at [facility] anymore, no active plan. Of note, he is disoriented which is new according to nursing staff who is familiar with the patient. He denies any physical concerns or complaints but has flat affect and is slow to respond. He has had a lot of recent medication changes. Differential diagnoses considered include but are not limited to suicidal ideation, depression, UTI, FAVIO, metabolic derangement, hepatic encephalopathy, medication adverse reaction. Ruling out the most morbid conditions drove assessment. It should be noted patient's history includes extensive cardiovascular history and peripheral vascular history, right AKA left BKA, CKD, prior CVA, diabetes, bipolar disorder among others which may or may not be at goal therapy. This complicates all aspects of care by increasing patient's risk for morbidity. I reviewed patient's past medical records and noted recent admission for stercoral colitis, patient was discharged with new bowel regimen. He also had FAVIO and hyperkalemia. He was started on Lokelma and spironolactone was discontinued.. On exam, the patient is lying in bed. He has flat affect and is slow to respond. He is disoriented to time. He denies any physical concerns or complaints. He is at his neurologic baseline, cardiopulmonary and abdominal exams are reassuring. He complains of suicidal thoughts because he does not want to live at [facility] anymore, but he does not have any active plan. He notes this been going on for years, so I do not feel that 72-hour hold or emergent psychiatric evaluation is warranted at this time, though he certainly would benefit from this on an outpatient basis. Workup included lab evaluation to evaluate for infectious, metabolic, or cardiac derangements as a cause of encephalopathy as well as CT head without contrast, chest x-ray, and EKG. EKG obtained is reassuring.. I independently interpreted CT scan of the head without contrast and chest x-ray prior to the radiologist read and noted no large focal consolidation concerning for pneumonia, no large intracranial hemorrhage. Please see their read for final interpretation. Radiology notes concern for a 13 mm lesion at the cerebellar pontine angle concerning for meningioma versus schwannoma. I had an interactive discussion with Dr. Soliman the radiologist regarding this because he had a CT head 02/08/2025 that does not note this lesion. She notes that it was present there and she believes they had just missed it. labs were obtained that demonstrated leukocytosis, chronic elevation in creatinine that slightly worse than when he was discharged, hyperkalemia that slightly worse than when he was discharged but was present on prior labs as well.. EKG obtained does not demonstrate any acute STEMI, troponin negative initially. Urinalysis pending. I called and had an interactive discussion with neurosurgery at Dr. Holley -he advises nothing to do as far as this brain lesion. He does not think it would be contributing to his current presentation. He advises follow up outpatient with Dr. Barragan nonemergently. Patient care signed of the oncoming provider, Dr. Flores, pending UA, reassessment, disposition. Sandra: I assumed primary responsibility for this patient after signout from previous physician. On my evaluation, patient states that he is not suicidal and does not want to kill himself, he states that he is just tired of being in [facility] and does not feel that he is getting the care he needs because they just have too much going on. Patient currently has no complaints, but is only alert and oriented to person. Patient nontachycardic, but falling asleep after answering questions. Immediately wakes up when asked other questions. Patient does not have any current complaints otherwise. Given patient's fatigue, chronic hyperkalemia, chronic leukocytosis with lymphocytic predominance, and new onset confusion, I talked to hospital medicine, patient is also on numerous deliriogenic medications, this could be related. Also discussed possibility of potential hematologic malignancy causing confusion and altered mental status, I feel this is also very likely in her case given lymphocytic predominance. Ultimately, hospitalist agreed to admit patient for medication reconciliation and further workup of altered mental status and abnormal labs. Critical Care <Mariana Marshall, DO - Last Filed: 02/16/25 15:48> Critical Care Time Critical Care Time: Yes Attestation: On 02/16/25, the high probability of a clinically significant, sudden or life threatening deterioration of the following system(s) required my full and direct attention, intervention and personal management. The time I documented below is in addition to time spent performing reported procedures but includes the following listed in this critical care notation. Total Time Total Critical Care Time: 35
[2025-02-16 13:48] LABS: Basophils # 0.1 K/mm3 (0-0.2); Basophils % 0.3 % (0.1-2.0); Eosinophils # 0.1 K/mm3 (0.0-0.4); Eosinophils % 0.5 % (0.1-12.0); Hematocrit 31.7 % (42.0-52.0); Hemoglobin 9.7 g/dL (14.1-18.0); Lymphocytes # 15.2 K/mm3 (0.7-4.5); Lymphocytes % 80.1 % (10-50); Mean Corpuscular HGB Conc 30.6 g/dL (31.8-35.4); Mean Corpuscular Hemoglobin 29.5 pg (27.0-31.2); Mean Corpuscular Volume 96.4 fl (80-94); Monocytes # 0.9 K/mm3 (0.1-1.0); Monocytes % 4.9 % (1.7-9.3); Neutrophils # 2.7 K/mm3 (1.8-7.8); Platelet Count 289 K/mm3 (142-424); Red Blood Count 3.29 M/mm3 (4.60-6.20); Red Cell Distribution Width 14.1 % (11.5-17.5)
[2025-02-16 13:52] LABS: Lactate Venous 1.3 mmol/L (0.4-2.0); VBG Base Excess -6.4 mmol/L (-2.4-2.3); VBG HCO3 19.1 mmol/L (23-30); VBG Oxygen Saturation 95.4 % (50-70); VBG PCO2 35.2 mmol/L (35-51); VBG PH 7.35 mmol/L (7.31-7.41); VBG PO2 80.4 mmol/L (28-40); VBG Total CO2 20.2 mmol/L (23-27)
--- NOTE | 2025-02-16 13:53 | PC.NURSE ---
transported to [facility] via director radio and stretcher
[2025-02-16 13:55] LABS: Albumin Level 4.2 g/dl (3.5-5.0); Chloride 106 mmol/L (98-107)
[2025-02-16 13:56] LABS: Potassium 5.5 mmoL/L (3.5-5.1); Sodium 139 mmol/L (136-145)
[2025-02-16 13:58] LABS: Alanine Aminotransferase 12 U/L (12-78); Albumin/Globulin Ratio 1.1 (1.1-1.8); Anion Gap 14.5 mEq/L (5-15); Aspartate Amino Transferase 37 U/L (17-59); Blood Urea Nitrogen 25 mg/dl (9-20); Carbon Dioxide 24 mmol/L (22.0-30.0); Creatinine Clearance Estimated 57 mL/min (50-200); Estimated Glomerular Filt Rate 36 ml/min (>60); GFR (African American) 44 ML/MIN (>60); Globulin 3.7 g/dL (1.3-3.2); INR 1.28 (0.9-1.1); MANUAL DIFFERENTIAL MANUAL DIFFERENTIAL (MANUAL DIFF); Total Protein,Serum 7.9 g/dl (6.3-8.2)
[2025-02-16 13:59] LABS: Alkaline Phosphatase 87 U/L (38-126); Bilirubin,Total 0.5 mg/dl (0.2-1.3); Calcium 9.4 mg/dl (8.4-10.2); Glucose 94 mg/dl (74-100); Magnesium 1.9 mg/dl (1.6-2.3); Phosphorous 3.7 mg/dl (2.5-4.5)
[2025-02-16 14:12] LABS: Troponin I 0.02 ng/ml (0.00-0.034)
[2025-02-16 14:16] LABS: T4 (Thyroxine) 7.7 ug/dl (5.53-11.0)
[2025-02-16 14:31] LABS: Thyroid Stimulating Hormone 6.84 uIU/mL (0.465-4.68)
[2025-02-16 14:40] LABS: C-Reactive Protein 2.1 mg/L (0-4)
--- NOTE | 2025-02-16 14:47 | PC.NURSE ---
currently on phone with for neurosurgery consult per Dr. Marshall. [facility] stated that they would give us a call back.
[2025-02-16 14:53] LABS: Ammonia < 9 umol/L (9-30)
[2025-02-16 15:04] LABS: Procalcitonin 0.077 ng/mL (0.0-2.0)
[2025-02-16 15:18] LABS: Lymphocytes % 80 % (10-50); Monocytes % 2 % (2-9); Neutrophils % 18 % (42-76); Total Cells Counted 100
[2025-02-16 15:19] LABS: Anisocytosis 1+; Platelet Estimate Normal; Poikilocytosis 1+; RBC Morphology Normal
--- NOTE | 2025-02-16 15:30 | PC.NURSE ---
provided patient with clean bedding, pure wick placed and lunch tray given
--- NOTE | 2025-02-16 15:41 | PC.NURSE ---
DR BARRY SPEAKING WITH [facility]
[2025-02-16 15:44] LABS: Microscopic, Urine URINE MICROSCOPIC (MICROSCOPIC)
[2025-02-16 15:47] LABS: Appearance,Urine CLEAR (Clear); Bilirubin,Urine Negative (Negative); Blood, Urine 2+ (Negative); Color,Urine YELLOW (Yellow); Glucose,Urine (UA) 3+ (Negative); Ketones,Urine 2+ (Negative); Leukocyte Esterase,Urine Negative (Negative); Nitrate,Urine Negative (Negative); Protein,Urine Negative (Negative); Specific Gravity, Urine 1.025 (1.005-1.030); Urobilinogen,Urine 0.2 EU/dl (0.2)
[2025-02-16 16:07] LABS: Bacteria,Urine 1+ /lpf; White Blood Cell Casts,Urine Occasional #/lpf (0)
--- NOTE | 2025-02-16 16:31 | PC.NURSE ---
[facility] ATTENDANT NOTIFIED OF ADMISSION
--- NOTE | 2025-02-16 16:41 | PC.NURSE ---
called report to mayra benjamin on 2nd floor
[2025-02-16] MEDS: LACTATED RINGERS 1000ML 1,000 ML 100 ML IV (16:45)
[2025-02-16 16:52] LABS: Uric Acid 7.6 mg/dl (3.5-8.5)
--- NOTE | 2025-02-16 17:43 | P.HP_ITS ---
History of Present Illness *Admission Date: 02/16/25 *Reason for visit:: confusion *History of present illness: Mr. Hilton is a 64-year-old male who resides at [facility]. He called 911 because of thoughts of self-harm. States he does not want to be at [facility] anymore. Has tried to hurt himself by standing in front of traffic. Patient has a history of bipolar disorder, CKD, CVA, type 2 diabetes, hypertension, hyperlipidemia, CAD status post CABG, PAD, obesity, right AKA and left BKA. States he has been depressed for years and it is worse now that he is at the snf. He does not like the people there and has been there too long per his report. States he aches all over. Falls asleep easily during questioning. Denies active plan for self-harm or harm to others at this time. Appears frankly depressed however. Noted to have some confusion, is off from his normal per the provider in the ED that is seen him before. Also noted to have hyperkalemia and unexplained leukocytosis. Due to his lab abnormalities and confusion, medicine consulted for evaluation and further management. On after arriving to the floor, he states he just feels poorly all over. Not interested in answering questions. Stable on room air. Afebrile. No nausea or vomiting. Wanting to sleep. Appears fatigued but able to answer questions. States he has been taking all of his meds as prescribed. Is on multiple medications for depression. Denies any thoughts of self-harm at this time. Denies any fever, chills, dysuria. [facility] Disclaimer: The information contained in this section may have been updated after the patient was seen, as this information can be updated by other users. Medical History Falls Dry skin Edema of amputation stump of left lower extremity Pain of amputation stump of left lower extremity Hyperkalemia Lethargy Fecal impaction Chest pain Peripheral arterial disease Colon cancer screening Anemia HFrEF (heart failure with reduced ejection fraction) Visual disturbance Systolic heart failure Renal artery stenosis LV dysfunction COVID-19 Below-knee amputation of left lower extremity Diabetes mellitus with diabetic neuropathy Acute kidney injury Dehiscence of amputation stump Postprocedural (acute) (chronic) kidney failure Non-pressure chronic ulcer of unspecified part of right lower leg with unspecified severity Peptic ulcer, site unspecified, unspecified as acute or chronic, without hemorrhage or perforation Chronic or unspecified duodenal ulcer with hemorrhage Acute respiratory failure with hypoxia 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 Chronic osteomyelitis of left foot Overweight (BMI 25.0-29.9) Above knee amputation of right lower extremity Postoperative wound dehiscence Hyperlipidemia Hypertension Coronary artery disease Ischemic ulcer of left foot Peripheral arterial occlusive disease Onychodystrophy Surgical History History of right above knee amputation History of left below knee amputation History of colonoscopy Status post transmetatarsal amputation of left foot History of coronary artery bypass graft Social History Smoking Status: Former smoker tobacco type: cigarettes packs per day: 0 second hand exposure: No alcohol intake: never substance use type: denies use current occupational status: retired Travel in the last 8 weeks: None household members: other housing: snf current occupational exposures/hazards: No caffeine: No Have you lived/traveled outside [place] in past 30 days?: No Contact w/someone who lives/traveled outside US past 30 days?: No Exposure to someone with infectious disease in past 14 days?: No Do you have a fever (greater than 100.4 F or 38 C)?: No Have you tested positive for COVID-19: No Exposed to someone with COVID-19 in past 14 days?: No Do you have a sore throat?: No Do you have a cough?: No Do you have any weakness?: No Do you have any diarrhea?: No Are you experiencing any unusual bleeding?: No Do you have any muscle aches/pain?: No Do you have any abdominal pain?: No Are you experiencing loss of taste or smell?: No Other Medical History Have you received the Flu Vaccine for this season: Yes Have you received the Pneumonia Vaccine: Yes Review of Systems Review of Systems Review of systems (narrative): 14 point review of systems performed, pertinent positives and negatives as per HPI Meds Home Medications and Allergies Home Medications ?Medication ?Instructions ?Recorded ?Confirmed ?Type aspirin 81 mg chewable tablet 81 mg PO DAILY HEART HEALTH 12/05/19 02/16/25 History atorvastatin 80 mg tablet 80 mg PO HS Cholesterol 12/05/19 02/16/25 History pantoprazole 40 mg tablet,delayed 40 mg PO DAILY Reflux/Acid reflux 12/05/19 02/16/25 History release polyethylene glycol 3350 17 gram 17 g PO DAILYP PRN Constipation 12/05/19 02/16/25 History oral powder packet lactulose 10 gram/15 mL oral 30 ml PO DAILYP PRN Constipation 02/03/21 02/16/25 History solution acetaminophen 325 mg tablet 650 mg (2 x 325 mg) PO Q6HP PRN 04/02/21 02/16/25 Rx Mild To Moderate Pain docusate sodium 100 mg capsule 100 mg PO BIDP PRN Constipation 04/02/21 02/16/25 Rx sacubitril 97 mg-valsartan 103 mg 1 tab PO BID #60 tabs 03/08/23 02/16/25 Rx tablet (Entresto) metformin 1,000 mg tablet 1,000 mg PO BID #180 tabs 12/03/23 02/16/25 Rx multivitamin (One-A-Day Essential 1 tab PO DAILY 01/16/24 02/16/25 History tablet) rivaroxaban 2.5 mg tablet 2.5 mg PO BID Blood thinner 90 02/06/24 02/16/25 Rx days #180 tabs spironolactone 25 mg tablet 25 mg PO DAILY #90 tabs 02/06/24 02/16/25 Rx (Aldactone) insulin human U-100 NPH-regulr 65 unit SQ DAILY 05/24/24 02/16/25 History 70-30 mix 100 unit/mL subcutaneous susp empagliflozin 25 mg tablet 25 mg PO DAILY #90 tabs 08/14/24 02/16/25 Rx (Jardiance) quetiapine 400 mg tablet 400 mg PO HS 08/29/24 02/16/25 History coQ10 (ubiquinol) 100 mg capsule 100 mg PO BID #180 caps 11/13/24 02/16/25 Rx (Qunol Kurtis CoQ10) dextromethorphan-guaifenesin 10 10 ml PO Q6HP PRN Congestion 11/13/24 02/16/25 History mg-100 mg/5 mL oral liquid (Robafen DM Cough) pen needle,diabetic dual safty 30 #100 ea 11/29/24 02/16/25 History gauge x 3/16 (BD AutoShield Duo Pen Needle) venlafaxine 150 mg 150 mg PO DAILY 01/22/25 02/16/25 History capsule,extended release 24 hr carvedilol 25 mg tablet (Coreg) 25 mg PO 0800,1700 02/09/25 02/16/25 History clonazepam 0.5 mg tablet 0.5 mg PO HS anxiety 02/09/25 02/16/25 History hydrocodone 5 mg-acetaminophen 325 1 tab PO BIDP PRN pain 02/09/25 02/16/25 History mg tablet prazosin 1 mg capsule 3 mg PO HS 02/09/25 02/16/25 History trazodone 50 mg tablet 50 mg PO HS insomnia 02/09/25 02/16/25 History amoxicillin 500 mg-potassium 1 tab PO TID 5 days #15 tabs 02/11/25 02/16/25 Rx clavulanate 125 mg tablet (Augmentin) patiromer calcium sorbitex 8.4 8.4 g PO DAILY #30 ea 02/12/25 02/16/25 Rx gram oral powder packet (Veltassa) gabapentin 100 mg capsule 100 mg PO BID #60 caps 02/15/25 02/16/25 Rx New Prescriptions to Start Prescriptions: Allergies Allergy/AdvReac Type Severity Reaction Status Date / Time No Known Allergies Allergy Verified 02/12/25 10:27 Exam Data for Last 24 hours Vital signs and Labs for Last 24 Hours: Temp Pulse Resp BP Pulse Ox O2 Del Method 98.3 F 77 16 138/63 95 Room Air 02/16/25 17:00 02/16/25 17:00 02/16/25 17:00 02/16/25 17:00 02/16/25 17:00 02/16/25 17:00 Laboratory Results - last 24 hr 02/16/25 13:10: SARS-CoV-2 (PCR) Not detected, Influenza A Untype (PCR) Not detected, Influenza Type B (PCR) Not detected 02/16/25 13:18: VBG pH 7.35, VBG pCO2 35.2, VBG pO2 80.4 H, VBG HCO3 19.1 L, VBG Total CO2 20.2 L, VBG O2 Saturation 95.4 H, VBG Base Excess -6.4 L, VBG Lactic Acid 1.3 02/16/25 13:37: WBC 19.0 H, RBC 3.29 L, Hgb 9.7 L, Hct 31.7 L, MCV 96.4 H, MCH 29.5, MCHC 30.6 L, RDW 14.1, Plt Count 289, MPV 10.0, Neut % (Auto) 14.0 L, Lymph % (Auto) 80.1 H, Mccracken % (Auto) 4.9, Eos % (Auto) 0.5, Baso % (Auto) 0.3, Neut # (Auto) 2.7, Lymph # (Auto) 15.2 H, M[place]racken # (Auto) 0.9, Eos # (Auto) 0.1, Baso # (Auto) 0.1, Total Counted 100, Neutrophils % (Manual) 18 L, Lymphocytes % (Manual) 80 H, Monocytes % (Manual) 2, Differential Comment Comment, Platelet Estimate Normal, RBC Morphology Normal, Poikilocytosis 1+, Anisocytosis 1+, PT 14.0 H, INR 1.28 H, Sodium 139, Potassium 5.5 H, Chloride 106, Carbon Dioxide 24, Anion Gap 14.5, BUN 25 H, Creatinine 1.90 H, Estimated Creat Clear 57, Estimated GFR 36 L, Est GFR ( Amer) 44 L, Glucose 94, Uric Acid 7.6, Calcium 9.4, Phosphorus 3.7, Magnesium 1.9, Total Bilirubin 0.5, AST 37, ALT 12, Alkaline Phosphatase 87, Troponin I 0.02, C-Reactive Protein 2.1, Total Protein 7.9, Albumin 4.2, Globulin 3.7 H, Albumin/Globulin Ratio 1.1, Procalcitonin 0.077, TSH 6.84 H, Thyroxine (T4) 7.7 02/16/25 14:15: Ammonia < 9 L 02/16/25 15:15: Urine Color Yellow, Urine Appearance Clear, Urine pH 6.0, Ur Specific [place] 1.025, Urine Protein Negative, Urine Glucose (UA) 3+, Urine Ketones 2+, Urine Blood 2+ A, Urine Nitrate Negative, Urine Bilirubin Negative, Urine Urobilinogen 0.2, Ur Leukocyte Esterase Negative, Urine RBC 10-20, Urine WBC 5-10, Ur Squamous Epith Cells 5-10, Ur Renal Epithelial Cell 5-10, Urine Bacteria 1+, WBC Casts Occasional I & O for Last 24 hours: Intake & Output 02/13/25 02/14/25 02/15/25 02/16/25 23:59 23:59 23:59 23:59 Weight 99.904 kg Constitutional Constitutional: no acute distress, obese and chronically ill appearing Comments: Falls asleep easily on interview. *Routine HEENT Exam Head: Present normocephalic Eye: Present EOMI and PERRL ENT: Present mucous membranes moist *Routine Neck Exam Neck: Present supple; Absent lymphadenopathy *Routine Respiratory Exam Respiratory: Present CTA bilaterally; Absent rhonchi, wheezes or crackles *Routine Cardiovascular Exam Cardiovascular: Present RRR *Routine Abdominal Exam Abdominal: Present soft and normoactive bowel sounds; Absent tenderness *Routine Rectal Exam Rectal:: deferred *Routine Genitalia Exam Genitalia:: deferred *Routine Extremities Exam Extremities: Absent cyanosis, clubbing or edema Comments: Left BKA, right AKA. *Routine Skin Exam Skin: Present warm; Absent rash *Routine Neurological Exam Neurological: Present alert, oriented X3, altered mental status and moving all extremities Comments: Full sleep easily on interview, answers questions appropriately. Complains of generalized pain and weakness Routine Psychiatric Exam Psychiatric: Present depressed Assessment and Plan *Assessment and plan (1) Encephalopathy: Status: Acute Category: Medical Code(s): G93.40 - Encephalopathy, unspecified (2) Leukocytosis: Status: Acute Qualifiers: Leukocytosis type: unspecified Qualified Code(s): D72.829 - Elevated white blood cell count, unspecified Category: Medical Code(s): D72.829 - Elevated white blood cell count, unspecified (3) Acute hyperkalemia: Status: Acute Category: Medical Code(s): E87.5 - Hyperkalemia (4) Suicidal ideation: Status: Acute Category: Medical Code(s): R45.851 - Suicidal ideations (5) Coronary artery disease: Status: Chronic Qualifiers: Associated angina: without angina Coronary Disease-Associated Artery/Lesion type: [place] artery [place] vs. transplanted heart: [place] heart Qualified Code(s): I25.10 - Atherosclerotic heart disease of [place] coronary artery without angina pectoris Category: Medical Code(s): I25.10 - Atherosclerotic heart disease of [place] coronary artery without angina pectoris (6) CKD (chronic kidney disease): Status: Acute Qualifiers: Chronic kidney disease stage: unspecified stage Qualified Code(s): N18.9 - Chronic kidney disease, unspecified Category: Medical Code(s): N18.9 - Chronic kidney disease, unspecified (7) History of right above knee amputation: Status: Resolved Category: Surgical Code(s): Z89.611 - Acquired absence of right leg above knee (8) History of left below knee amputation: Status: Resolved Category: Surgical Code(s): Z89.512 - Acquired absence of left leg below knee (9) Hypertension: Status: Chronic Qualifiers: Hypertension type: essential hypertension Qualified Code(s): I10 - Essential (primary) hypertension Category: Medical Code(s): I10 - Essential (primary) hypertension (10) Hyperlipidemia: Status: Chronic Qualifiers: Hyperlipidemia type: mixed hyperlipidemia Qualified Code(s): E78.2 - Mixed hyperlipidemia Category: Medical Code(s): E78.5 - Hyperlipidemia, unspecified (11) Diabetes mellitus: Status: Chronic Qualifiers: Diabetes mellitus complication detail: with peripheral angiopathy with gangrene Diabetes mellitus complication status: with circulatory complication Diabetes mellitus bread room hand insulin use: with snf use Diabetes mellitus type: type 2 Qualified Code(s): E11.52 - Type 2 diabetes mellitus with diabetic peripheral angiopathy with gangrene; Z79.4 - medical concierge (current) use of insulin Category: Medical Code(s): E11.9 - Type 2 diabetes mellitus without complications (12) Peripheral arterial disease: Status: Acute Category: Medical Code(s): I73.9 - Peripheral vascular disease, unspecified (13) Renal artery stenosis: Status: Acute Category: Medical Code(s): I70.1 - Atherosclerosis of renal artery (14) Anemia: Status: Acute Qualifiers: Anemia type: unspecified type Qualified Code(s): D64.9 - Anemia, unspecified Category: Medical Code(s): D64.9 - Anemia, unspecified (15) Brain lesion: Status: Acute Category: Medical Code(s): G93.9 - Disorder of brain, unspecified (16) AMS (altered mental status): Status: Acute Category: Medical Code(s): R41.82 - Altered mental status, unspecified Plan Easton Hilton is a 64-year-old male with a medical history significant for CAD/CABG, HFpEF, hypertension, hyperlipidemia, type 2 diabetes, left BKA, right AKA, mood disorder who presents with thoughts of self-harm and generalized weakness and confusion. Discussed case with ER physician, patient has more confused than normal. Also still has leukocytosis and elevated potassium. Requested admission for further management. I agreed to admit for further treatment and evaluation of possible toxic encephalopathy due to medications and workup of his leukocytosis. Hemodynamically stable at time of admission. Necessitating inpatient treatment. Problems addressed as follows: Encephalopathy Depression/mood disorder Suicidal thought -Patient appears more confused from baseline per provider that knows him. Polypharmacy noted on chart. Concern for toxic encephalopathy due to medications. Will decrease doses or hold certain medications such as his trazodone, Seroquel, Klonopin, gabapentin. -Will evaluate A1c; TSH abnormal at 6.8. Initiate levothyroxine 50 mcg daily. -Review of CT shows lesion suspicious for benign finding. Will need referral to neurosurgery for follow-up and serial imaging. #Leukocytosis ? Initial WBC 19. Lymphocytic predominant. Suspicious for blood dyscrasia. Peripheral smear ordered and pending. -No overt sign of infection however urine does have some white cells, 1+ bacteria, nitrate. Will initiate ceftriaxone 2 g daily pending urine culture. -Repeat CBC, CMP, magnesium ordered for the morning. #History of CABG, CAD ? Troponins normal, EKG without acute ischemic changes. ? Continue aspirin, statin. #FAVIO on CKD Hyperkalemia ? Creatinine 1.9, BUN 25. Baseline appears to be approximately 1.6. -Monitor for improvement with gentle hydration of 1 L LR. Repeat labs ordered f or the morning. -Will hold spironolactone and monitor closely with resumption of just Entresto #HFimpEF #Hypertension ? Stable. Continue carvedilol. Hold spironolactone and Entresto due to hyperkalemia. #Type 2 diabetes #Left BKA, right AKA ? A1c 6.1 last visit. Repeat A1c pending. Continue low-dose sliding scale insulin and fingersticks ACHS. -Resume home regimen with oral metformin. Monitor daily needs for consideration of resumption of home combined 70/30 regimen ? Stumps stable, does have left stump abrasion but no active signs of infection. #Mood disorder ? home Effexor 150 mg daily, prazosin 3 mg nightly. Hold Seroquel for now, consider resuming tomorrow Full code DVT prophylaxis: Home Xarelto Diabetic diet
[2025-02-16 18:09] LABS: Troponin I 0.03 ng/ml (0.00-0.034)
[2025-02-16] MEDS: CEFTRIAXONE SODIUM 2 GM in 0.9 % SODIUM CHLORIDE 100 ML IV (20:08)
[2025-02-16 20:09] LABS: POC Glucose,Bedside 94 (70-110)
[2025-02-16] MEDS: clonazePAM 0.5MG TABLET 0.5 MG PO (20:35)
[2025-02-16] MEDS: ATORVASTATIN 40MG TABLET 80 MG PO (20:35)
[2025-02-16 20:44] LABS: Troponin I 0.05 ng/ml (0.00-0.034)
[2025-02-17 04:00] VITALS: BP 132/62; PULSE 94; RESP 16; TEMP 37.1; O2SAT 97; BMI 37.2
--- NOTE | 2025-02-17 05:11 | PC.NURSE ---
Pt. was admitted yesterday from the ED for altered mental status. Pt. is from [facility], Pt. is alert and can answer some questions. but is not engaged in conversation. kyler nod head yes or no but not talking at this time. Pt's dinner tray was left untouched. I asked pt if he was hungry and offered to help him if needed but he was not interested in the food. Pt. did take his prescribed medications that were available. Pt. has a purewick in place. He seems very depressed and quiet. Pt. has not needed any thing this shift. He has slept most of the shift. Personal items and call mitchell in reach.
[2025-02-17 06:29] LABS: POC Glucose,Bedside 95 (70-110)
[2025-02-17 08:00] VITALS: BP 160/78; PULSE 79; RESP 16; TEMP 36.6; O2SAT 98
[2025-02-17] MEDS: DOCUSATE SODIUM 100 MG CAPSULE PO (08:44)
[2025-02-17] MEDS: PANTOPRAZOLE 40MG TABLET 40 MG PO (08:44)
[2025-02-17] MEDS: CARVEDILOL 25MG TABLET 25 MG PO ×2 (08:44→15:58)
[2025-02-17] MEDS: ASPIRIN 81MG CHEWABLE TABLET 81 MG PO (08:44)
[2025-02-17] MEDS: VENLAFAXINE XR 75MG CAPSULE 150 MG PO (08:44)
[2025-02-17] MEDS: EMPAGLIFLOZIN 25MG TABLET 25 MG PO (08:44)
[2025-02-17] MEDS: METFORMIN 500MG TABLET 1000 MG PO ×2 (08:44→15:58)
[2025-02-17] MEDS: RIVAROXABAN 2.5MG TABLET 2.5 MG PO ×2 (08:45→20:04)
[2025-02-17 08:46] LABS: Basophils # 0.1 K/mm3 (0-0.2); Basophils % 0.2 % (0.1-2.0); Eosinophils # 0.1 K/mm3 (0.0-0.4); Eosinophils % 0.6 % (0.1-12.0); Hematocrit 33.8 % (42.0-52.0); Lymphocytes # 16.6 K/mm3 (0.7-4.5); Lymphocytes % 82.2 % (10-50); Mean Corpuscular HGB Conc 31.7 g/dL (31.8-35.4); Mean Corpuscular Hemoglobin 29.9 pg (27.0-31.2); Mean Corpuscular Volume 94.4 fl (80-94); Mean Platelet Volume 10.2 fl (7.4-10.4); Monocytes # 0.9 K/mm3 (0.1-1.0); Monocytes % 4.5 % (1.7-9.3); Neutrophils # 2.5 K/mm3 (1.8-7.8); Platelet Count 297 K/mm3 (142-424); Red Blood Count 3.58 M/mm3 (4.60-6.20); Red Cell Distribution Width 13.9 % (11.5-17.5); White Blood Count 20.2 K/mm3 (4.8-10.8)
[2025-02-17] MEDS: LEVOTHYROXINE 50MCG (0.05MG) TAB 50 MCG PO (08:46)
[2025-02-17 08:47] LABS: Albumin Level 4.1 g/dl (3.5-5.0); Chloride 107 mmol/L (98-107); Neutrophils % 12.4 % (37.0-80.0); Sodium 140 mmol/L (136-145)
[2025-02-17 08:48] LABS: MANUAL DIFFERENTIAL MANUAL DIFFERENTIAL (MANUAL DIFF); Potassium 4.7 mmoL/L (3.5-5.1)
[2025-02-17 08:50] LABS: Alanine Aminotransferase 12 U/L (12-78); Albumin/Globulin Ratio 1.1 (1.1-1.8); Anion Gap 16.7 mEq/L (5-15); Aspartate Amino Transferase 37 U/L (17-59); Bilirubin,Total 0.5 mg/dl (0.2-1.3); Blood Urea Nitrogen 19 mg/dl (9-20); Carbon Dioxide 21 mmol/L (22.0-30.0); Creatinine Clearance Estimated 72 mL/min (50-200); Estimated Glomerular Filt Rate 47 ml/min (>60); GFR (African American) 57 ML/MIN (>60); Globulin 3.7 g/dL (1.3-3.2); Hemoglobin 10.7 g/dL (14.1-18.0); Total Protein,Serum 7.8 g/dl (6.3-8.2)
[2025-02-17 08:51] LABS: Alkaline Phosphatase 89 U/L (38-126); Calcium 9.5 mg/dl (8.4-10.2); Glucose 97 mg/dl (74-100); Magnesium 1.7 mg/dl (1.6-2.3)
--- NOTE | 2025-02-17 09:34 | P.CONPHA_ITS ---
Pharmacy Intervention Comments: MEDICATION RECONCILIATION COMPLETE USING MAR FROM [facility].
--- NOTE | 2025-02-17 09:34 | HMH.PHAINT1 ---
Pharmacy Intervention Comments: MEDICATION RECONCILIATION COMPLETE USING MAR FROM [facility].
[2025-02-17 10:14] LABS: POC Glucose,Bedside 98 (70-110)
[2025-02-17 10:26] LABS: Anisocytosis 1+; Eosinophils % 1 % (0-3); Lymphocytes % 67 % (10-50); Monocytes % 6 % (2-9); Neutrophils % 26 % (42-76); Platelet Estimate Normal; Poikilocytosis 1+; Total Cells Counted 100
[2025-02-17 12:00] VITALS: BP 119/54; PULSE 75; RESP 16; TEMP 36.6; O2SAT 98
--- NOTE | 2025-02-17 13:03 | P.PN_ITS ---
Subjective *Date: 02/17/25 *Time: 13:03 Interval history: Patient answers questions appropriately today. Appears frankly depressed. Stable on room air. No nausea or vomiting. White count remains elevated, awaiting peripheral smear. Glucose well-controlled. No nausea or vomiting. States he aches all over. Medical Exam Vital signs and Labs for Last 24 Hours: Vital Signs Temp Pulse Pulse Resp BP BP Pulse Ox 02/17/25 11:51 02/17/25 09:54 02/17/25 09:00 02/17/25 08:00 97.9 F 79 16 160/78 H 98 02/17/25 08:00 02/17/25 06:50 02/17/25 05:00 02/17/25 04:00 98.8 F 94 H 16 132/62 97 02/17/25 03:00 02/17/25 01:00 02/16/25 23:00 02/16/25 21:00 02/16/25 20:00 02/16/25 20:00 98.0 F 79 16 126/80 97 02/16/25 18:26 02/16/25 17:00 02/16/25 17:00 98.3 F 77 16 138/63 95 02/16/25 16:42 98.2 F 80 20 139/85 02/16/25 16:34 02/16/25 16:01 80 187/86 H 97 02/16/25 15:31 78 189/87 H 98 02/16/25 15:01 76 174/84 H 97 02/16/25 14:30 73 169/82 H 98 02/16/25 14:16 88 158/78 H 97 02/16/25 13:30 72 152/71 H 98 O2 Del Method 02/17/25 11:51 Room Air 02/17/25 09:54 Room Air 02/17/25 09:00 Room Air 02/17/25 08:00 02/17/25 08:00 Room Air 02/17/25 06:50 Room Air 02/17/25 05:00 Room Air 02/17/25 04:00 Room Air 02/17/25 03:00 Room Air 02/17/25 01:00 Room Air 02/16/25 23:00 Room Air 02/16/25 21:00 Room Air 02/16/25 20:00 Room Air 02/16/25 20:00 Room Air 02/16/25 18:26 Room Air 02/16/25 17:00 Room Air 02/16/25 17:00 Room Air 02/16/25 16:42 Room Air 02/16/25 16:34 Room Air 02/16/25 16:01 Room Air 02/16/25 15:31 Room Air 02/16/25 15:01 Room Air 02/16/25 14:30 Room Air 02/16/25 14:16 Room Air 02/16/25 13:30 Room Air Intake and Output 02/16/25 02/17/25 02/17/25 23:59 07:59 15:59 Intake Total 1714 / 1714 Output Total 900 / 900 Balance 814 / 814 Intake: Intake, Total IV Amount 1714 / 1714 Ceftriaxone Sodium 2 gm In 0.9 100 / 100 % Sodium Chloride 100 ml @ 200 mls/hr IV Q24H SHARATH Rx#:[id number] Lactated Ringers 1000ML 1,000 1614 / 1614 ml @ 100 mls/hr IV .Q10H [facility] Rx #:[id number] Output: Output, Urine Amount 900 / 900 Other: Number of Unmeasured Voids 0 Weight 99.904 kg 101.333 kg Patient Weight 02/17/25 23:59 Weight 101.333 kg Laboratory Results - last 24 hr 02/16/25 13:10: SARS-CoV-2 (PCR) Not detected, Influenza A Untype (PCR) Not detected, Influenza Type B (PCR) Not detected 02/16/25 13:18: VBG pH 7.35, VBG pCO2 35.2, VBG pO2 80.4 H, VBG HCO3 19.1 L, VBG Total CO2 20.2 L, VBG O2 Saturation 95.4 H, VBG Base Excess -6.4 L, VBG Lactic Acid 1.3 02/16/25 13:37: WBC 19.0 H, RBC 3.29 L, Hgb 9.7 L, Hct 31.7 L, MCV 96.4 H, MCH 29.5, MCHC 30.6 L, RDW 14.1, Plt Count 289, MPV 10.0, Neut % (Auto) 14.0 L, Lymph % (Auto) 80.1 H, Perkins % (Auto) 4.9, Eos % (Auto) 0.5, Baso % (Auto) 0.3, Neut # (Auto) 2.7, Lymph # (Auto) 15.2 H, Perkins # (Auto) 0.9, Eos # (Auto) 0.1, Baso # (Auto) 0.1, Total Counted 100, Neutrophils % (Manual) 18 L, Lymphocytes % (Manual) 80 H, Monocytes % (Manual) 2, Differential Comment Comment, Platelet Estimate Normal, RBC Morphology Normal, Poikilocytosis 1+, Anisocytosis 1+, PT 14.0 H, INR 1.28 H, Sodium 139, Potassium 5.5 H, Chloride 106, Carbon Dioxide 24, Anion Gap 14.5, BUN 25 H, Creatinine 1.90 H, Estimated Creat Clear 57, Estimated GFR 36 L, Est GFR ( Amer) 44 L, Glucose 94, Uric Acid 7.6, Calcium 9.4, Phosphorus 3.7, Magnesium 1.9, Total Bilirubin 0.5, AST 37, ALT 12, Alkaline Phosphatase 87, Troponin I 0.02, C-Reactive Protein 2.1, Total Protein 7.9, Albumin 4.2, Globulin 3.7 H, Albumin/Globulin Ratio 1.1, Procalcitonin 0.077, TSH 6.84 H, Thyroxine (T4) 7.7 02/16/25 14:15: Ammonia < 9 L 02/16/25 15:15: Urine Color Yellow, Urine Appearance Clear, Urine pH 6.0, Ur Specific [place] 1.025, Urine Protein Negative, Urine Glucose (UA) 3+, Urine Ketones 2+, Urine Blood 2+ A, Urine Nitrate Negative, Urine Bilirubin Negative, Urine Urobilinogen 0.2, Ur Leukocyte Esterase Negative, Urine RBC 10-20, Urine WBC 5-10, Ur Squamous Epith Cells 5-10, Ur Renal Epithelial Cell 5-10, Urine Bacteria 1+, WBC Casts Occasional 02/16/25 17:30: Troponin I 0.03 02/16/25 20:00: POC Glucose 94 02/16/25 20:05: Troponin I 0.05 H 02/17/25 05:48: POC Glucose 95 02/17/25 08:30: WBC 20.2 H*, RBC 3.58 L, Hgb 10.7 L D, Hct 33.8 L, MCV 94.4 H, MCH 29.9, MCHC 31.7 L, RDW 13.9, Plt Count 297, MPV 10.2, Neut % (Auto) 12.4 L, Lymph % (Auto) 82.2 H, Perkins % (Auto) 4.5, Eos % (Auto) 0.6, Baso % (Auto) 0.2, Neut # (Auto) 2.5, Lymph # (Auto) 16.6 H, Perkins # (Auto) 0.9, Eos # (Auto) 0.1, Baso # (Auto) 0.1, Total Counted 100, Neutrophils % (Manual) 26 L, Lymphocytes % (Manual) 67 H, Monocytes % (Manual) 6, Eosinophils % (Manual) 1, Differential Comment Comment, Platelet Estimate Normal, RBC Morphology Not Reportable, Poikilocytosis 1+, Anisocytosis 1+, Sodium 140, Potassium 4.7, Chloride 107, Carbon Dioxide 21 L, Anion Gap 16.7 H, BUN 19, Creatinine 1.50 H D, Estimated Creat Clear 72, Estimated GFR 47 L, Est GFR ( Amer) 57 L D, Glucose 97, Calcium 9.5, Magnesium 1.7 D, Total Bilirubin 0.5, AST 37, ALT 12, Alkaline Phosphatase 89, Total Protein 7.8, Albumin 4.1, Globulin 3.7 H, Albumin/Globulin Ratio 1.1 02/17/25 10:07: POC Glucose 98 I & O for Labs for Last 24 Hours: Intake & Output 02/14/25 02/15/25 02/16/25 02/17/25 23:59 23:59 23:59 23:59 Intake Total 1714 / 1714 Output Total 900 / 900 Balance 814 / 814 Weight 99.904 kg 101.333 kg Constitutional: Present no acute distress, obese and chronically ill appearing Head: Present atraumatic and normocephalic ENT: Present normal exam Respiratory: Present normal respiratory effort; Absent rhonchi, wheezes or crackles Cardiac: Present Reg Rate and Rhythm GI: Present soft and normal bowel sounds; Absent distention or tenderness Extremities: Present normal inspection and full ROM; Absent edema Comment:: Right AKA, left BKA Skin: Present intact; Absent erythema Neuro: Present Grossly Intact, alert, awake, oriented x 3 and moves all extremities Comment:: Depressed affect Assessment and Plan *Assessment and plan (1) Encephalopathy: Status: Acute Category: Medical Code(s): G93.40 - Encephalopathy, unspecified (2) Leukocytosis: Status: Acute Qualifiers: Leukocytosis type: unspecified Qualified Code(s): D72.829 - Elevated white blood cell count, unspecified Category: Medical Code(s): D72.829 - Elevated white blood cell count, unspecified (3) Acute hyperkalemia: Status: Acute Category: Medical Code(s): E87.5 - Hyperkalemia (4) Suicidal ideation: Status: Acute Category: Medical Code(s): R45.851 - Suicidal ideations (5) Coronary artery disease: Status: Chronic Qualifiers: Coronary Disease-Associated Artery/Lesion type: redding artery [place] vs. transplanted heart: redding heart Associated angina: without angina Qualified Code(s): I25.10 - Atherosclerotic heart disease of redding coronary artery without angina pectoris Category: Medical Code(s): I25.10 - Atherosclerotic heart disease of redding coronary artery without angina pectoris (6) CKD (chronic kidney disease): Status: Acute Qualifiers: Chronic kidney disease stage: unspecified stage Qualified Code(s): N18.9 - Chronic kidney disease, unspecified Category: Medical Code(s): N18.9 - Chronic kidney disease, unspecified (7) History of right above knee amputation: Status: Resolved Category: Medical Code(s): Z89.611 - Acquired absence of right leg above knee (8) History of left below knee amputation: Status: Resolved Category: Medical Code(s): Z89.512 - Acquired absence of left leg below knee (9) Hypertension: Status: Chronic Qualifiers: Hypertension type: essential hypertension Qualified Code(s): I10 - Essential (primary) hypertension Category: Medical Code(s): I10 - Essential (primary) hypertension (10) Hyperlipidemia: Status: Chronic Qualifiers: Hyperlipidemia type: mixed hyperlipidemia Qualified Code(s): E78.2 - Mixed hyperlipidemia Category: Medical Code(s): E78.5 - Hyperlipidemia, unspecified (11) Diabetes mellitus: Status: Chronic Qualifiers: Diabetes mellitus type: type 2 Diabetes mellitus half-way insulin use: with half-way use Diabetes mellitus complication status: with circulatory complication Diabetes mellitus complication detail: with peripheral angiopathy with gangrene Qualified Code(s): E11.52 - Type 2 diabetes mellitus with diabetic peripheral angiopathy with gangrene; Z79.4 - detention (current) use of insulin Category: Medical Code(s): E11.9 - Type 2 diabetes mellitus without complications (12) Peripheral arterial disease: Status: Acute Category: Medical Code(s): I73.9 - Peripheral vascular disease, unspecified (13) Renal artery stenosis: Status: Acute Category: Medical Code(s): I70.1 - Atherosclerosis of renal artery (14) Anemia: Status: Acute Qualifiers: Anemia type: unspecified type Qualified Code(s): D64.9 - Anemia, unspecified Category: Medical Code(s): D64.9 - Anemia, unspecified (15) Brain lesion: Status: Acute Category: Medical Code(s): G93.9 - Disorder of brain, unspecified (16) AMS (altered mental status): Status: Acute Category: Medical Code(s): R41.82 - Altered mental status, unspecified Plan Easton Hilton is a 64-year-old male with a medical history significant for CAD/CABG, HFpEF, hypertension, hyperlipidemia, type 2 diabetes, left BKA, right AKA, mood disorder who presents with thoughts of self-harm and generalized weakness and confusion. Discussed case with ER physician, patient has more confused than normal. Also still has leukocytosis and elevated potassium. Requested admission for further management. I agreed to admit for further treatment and evaluation of possible toxic encephalopathy due to medications and workup of his leukocytosis. Maintained on [place] stable. Appears oriented today. Adjustments to his depression meds today. Therapy evaluating. Anticipate discharge in the next day or 2. Case management consult for the morning to assist with considering alternate facilities. Problems addressed as follows: Encephalopathy Depression/mood disorder Suicidal thought -Patient is alert and oriented today. Appears depressed. No SI today. No concern for confusion on exam. -Continue Klonopin 0.5 mg nightly, decrease Seroquel to 200 mg daily. Holding trazodone at night. - TSH abnormal at 6.8. Initiate levothyroxine 50 mcg daily. -Review of CT shows lesion suspicious for benign finding. Will need referral to neurosurgery for follow-up and serial imaging. #Leukocytosis ? Initial WBC 19. Increased to 20, hemoglobin 10.7, platelets 297. Smear pending. Suspicious for hematologic malignancy. -No overt sign of infection however urine does have some white cells, 1+ bacteria, nitrate. Continue ceftriaxone 2 g daily pending urine culture. -Repeat CBC, CMP, magnesium ordered for the morning. #History of CABG, CAD ? Troponins normal, EKG without acute ischemic changes. ? Continue aspirin, statin. #FAVIO on CKD Hyperkalemia ? Creatinine 1.5, BUN 19. Potassium 4.7, magnesium 1.7. Kidney function at baseline - hold spironolactone and Entresto #HFimpEF #Hypertension ? Stable. Continue carvedilol. Hold spironolactone and Entresto due to hyperkalemia. #Type 2 diabetes #Left BKA, right AKA ? A1c 6.1 last visit. continue low-dose sliding scale insulin and fingersticks ACHS. -Holding 70/30 and long-acting insulin. Morning glucose 95 ? Stumps stable, does have left stump abrasion but no active signs of infection. #Mood disorder ? home Effexor 150 mg daily, prazosin 3 mg nightly. Resume Seroquel at lower dose of 200 mg daily Full code DVT prophylaxis: Home Xarelto Diabetic diet
--- NOTE | 2025-02-17 13:16 | HMH.PTEV ---
Physical Therapy Evaluation Rehab PT IP Evaluation Start: 02/16/25 17:33 Freq: ONCE Status: Active Protocol: Document 02/17/25 12:38 PDESEROUX (Rec: 02/17/25 13:16 [email or web address] [id number]) Subjective/History History History Pt. is a 64 yo male who presents to 2nd floor [facility] Inpatient this date(02/17/25) for the Inpatient Physical Therapy evaluation. Pt. is able to recall birthdate and follow simple commands, however, was unable to tell where he is at this time. Pt. is cooperative and willing to participate in PT initial evaluation. Pt. presents to [facility] on 02/16/25 secondary to I tried to commit suicide by putting himself in the middle of street. Therefore, pt. called 911 and was brought into the hospital. Pt. reports he's been present at [place] for 5 years, but c/o depression and thoughts of suicide worsening here recently. Pt. reports participating in Physical Therapy while staying at [place] including BUE/BLE ROM and therapeutic strengthening exercises. Pt. reports W/C as his method of mobility secondary to S/P BLE amputations. Pt. reports using a transfer board w/ some assistance. Pt. adamantly states, I don't want to be there anymore regarding his stay at [place]. PMH includes RLE above knee amputation, history of left below knee amputation, history of colonoscopy, status post transmetatarsal amputation of left foot, history of coronary artery bypass graft, hyperlipidemia, obesity, PAD, DM-II, and hypertension. Subjective Subjective Pt. reports, I tried to commit suicide. Pt. was agreeable to participate in Physical Therapy Initial Evaluation, however, denied x3 to transfer to W/C w/ transfer board. New diagnosis of cancer in past 12 No months? [facility] How much help from another person do you currently need... Turning from your back to your side A little while in a flat bed without using bedrails? Moving from lying on back to sitting on A little the side of a flat bed without using bedrails? Moving to and from a bed to a chair ( Total including a wheelchair)? Standing up from a chair using your arms Total ? (e.g., wheelchair, bedside chair) Walking in hospital room? Total Climbing 3-5 steps with a railing? Total Mobility Score 10 Mobility Level [facility] Mobility Calculator Mobility 4 Move to chair/ commode Rehab PT IP Eval Objective Appearance Patient Behavior Fatigued,Asleep,Wandering, Confused Patient Orientation Person,Birthday Difficulty following instructions mild Speech Pattern Soft-Spoken,Monotone,Mumbled Ambulation Patient Able to Ambulate No Balance Ability to Arise Able, uses arms to help Sitting Balance Leans or slides in chair Dynamic Sitting Balance Ability Good Dynamic Standing Balance Ability Zero Transfers Bed Transfer Ability Minimal x 1 (25% assist) ROM RLE PT ROM Status WFL Abnormal ROM Comment w/ regards to S/P AKA LLE PT ROM Status WFL Abnormal ROM Comment w/ regards to S/P BKA MMT RLE PT MMT WFL Abnormal MMT Grade w/ regards to S/P BKA LLE PT MMT WFL Abnormal MMT Grade w/ regards to S/P BKA Rehab PT IP prob,goals,plan Problems Date of Evaluation: 02/17/25 PT IP Problems Bed Mobility,Transfers,Balance ,Self care,Safety Rehab Potential Rehab Potential Good Equipment Needs Assistive Devices Wheelchair Plan PT Intervention Plan Bed Mobility,Transfers,Balance ,Self care,Safety,Therapeutic Exercise Other Intervention Plan Pt. is appropriate for skilled Acute Physical Therapy care at this time. PT Plan Frequency BID Duration LOS Discharge Plan PT Discharge Plan Pt will benefit from skilled PT treatment while at [facility] and continue to benefit from long- term placement s/p discharge from [facility] once deemed medically stable by MD. Without skilled therapy pt is at an increased risk for falls, wounds, fractures and further functional decline. Eval Complexity Eval Charge Codes 36053 - Low Complexity PHYSICIAN CERTIFICATION: I certify the specified therapy services for Easton Yobani are required, authorized, and reviewed every 30 days.
[2025-02-17 16:00] VITALS: BP 126/68; PULSE 71; RESP 16; TEMP 36.6; O2SAT 96
[2025-02-17 16:07] LABS: POC Glucose,Bedside 165 (70-110)
--- NOTE | 2025-02-17 16:45 | PC.NURSE ---
Aox 3, assist with turns times one, 20g R FA SL, fshb achs, from [facility] and states he would like to avoid returning there, diabetic diet, purewick in place, on iv abx at night.
[2025-02-17 20:00] VITALS: BP 126/60; PULSE 71; RESP 16; TEMP 36.6; O2SAT 97
[2025-02-17] MEDS: CEFTRIAXONE SODIUM 2 GM in 0.9 % SODIUM CHLORIDE 100 ML IV (20:01)
[2025-02-17] MEDS: ATORVASTATIN 40MG TABLET 80 MG PO (20:03)
[2025-02-17] MEDS: QUETIAPINE 100MG TABLET 200 MG PO (20:03)
[2025-02-17] MEDS: PRAZOSIN 1MG CAP 3 MG PO (20:04)
[2025-02-17] MEDS: clonazePAM 0.5MG TABLET 0.5 MG PO (20:04)
[2025-02-18 04:00] VITALS: BP 95/50; PULSE 73; RESP 16; TEMP 36.8; O2SAT 97; BMI 37.9
[2025-02-18 06:10] LABS: Basophils # 0.1 K/mm3 (0-0.2); Basophils % 0.3 % (0.1-2.0); Eosinophils # 0.2 K/mm3 (0.0-0.4); Eosinophils % 0.8 % (0.1-12.0); Hematocrit 33.8 % (42.0-52.0); Hemoglobin 10.6 g/dL (14.1-18.0); Lymphocytes # 14.7 K/mm3 (0.7-4.5); Lymphocytes % 81.1 % (10-50); Mean Corpuscular HGB Conc 31.4 g/dL (31.8-35.4); Mean Corpuscular Hemoglobin 29.9 pg (27.0-31.2); Mean Corpuscular Volume 95.2 fl (80-94); Mean Platelet Volume 10.2 fl (7.4-10.4); Monocytes # 0.9 K/mm3 (0.1-1.0); Monocytes % 4.9 % (1.7-9.3); Neutrophils # 2.3 K/mm3 (1.8-7.8); Platelet Count 319 K/mm3 (142-424); Red Blood Count 3.55 M/mm3 (4.60-6.20); White Blood Count 18.1 K/mm3 (4.8-10.8)
[2025-02-18 06:11] LABS: Chloride 106 mmol/L (98-107); MANUAL DIFFERENTIAL MANUAL DIFFERENTIAL (MANUAL DIFF); Neutrophils % 12.8 % (37.0-80.0); Potassium 4.6 mmoL/L (3.5-5.1)
[2025-02-18 06:14] LABS: Alanine Aminotransferase 12 U/L (12-78); Alkaline Phosphatase 82 U/L (38-126); Aspartate Amino Transferase 38 U/L (17-59); Bilirubin,Total 0.5 mg/dl (0.2-1.3); Blood Urea Nitrogen 19 mg/dl (9-20); Calcium 9.4 mg/dl (8.4-10.2); Carbon Dioxide 22 mmol/L (22.0-30.0); Creatinine Clearance Estimated 61 mL/min (50-200); Estimated Glomerular Filt Rate 41 ml/min (>60); GFR (African American) 50 ML/MIN (>60); Glucose 107 mg/dl (74-100); Magnesium 1.6 mg/dl (1.6-2.3); Phosphorous 3.7 mg/dl (2.5-4.5); Total Protein,Serum 7.5 g/dl (6.3-8.2)
[2025-02-18] MEDS: LEVOTHYROXINE 50MCG (0.05MG) TAB 50 MCG PO (06:28)
--- NOTE | 2025-02-18 06:39 | PC.NURSE ---
Pt. is alert and orientated x 3. Pt. is on room air. Pt. not engaging in conversation. will nod head yes and no and occasionally answer with one or two words. . Pt. unhappy about possibly going back to [place]. Pt. slept most of the shift. He is able to assist with turns. Purewick is in place. bood sugars 94 and 108 no insulin coverage needed. Personal items and call [facility]chell in reach.
[2025-02-18 06:45] LABS: POC Glucose,Bedside 104 (70-110)
[2025-02-18 06:45] LABS: POC Glucose,Bedside 108 (70-110)
[2025-02-18 06:56] LABS: Albumin/Globulin Ratio 1.1 (1.1-1.8); Anion Gap 14.6 mEq/L (5-15); Globulin 3.5 g/dL (1.3-3.2); Sodium 138 mmol/L (136-145)
[2025-02-18 07:32] VITALS: BP 105/56; PULSE 73; RESP 14; TEMP 36.8; O2SAT 97
[2025-02-18 07:54] LABS: Lymphocytes % 72 % (10-50); Monocytes % 2 % (2-9); Neutrophils % 26 % (42-76); Platelet Estimate Normal; RBC Morphology Normal; Total Cells Counted 100
[2025-02-18] MEDS: PANTOPRAZOLE 40MG TABLET 40 MG PO (08:40)
[2025-02-18] MEDS: DOCUSATE SODIUM 100 MG CAPSULE PO (08:40)
[2025-02-18] MEDS: ASPIRIN 81MG CHEWABLE TABLET 81 MG PO (08:40)
[2025-02-18] MEDS: EMPAGLIFLOZIN 25MG TABLET 25 MG PO (08:40)
[2025-02-18] MEDS: CARVEDILOL 25MG TABLET 25 MG PO (08:40)
[2025-02-18] MEDS: VENLAFAXINE XR 75MG CAPSULE 150 MG PO (08:40)
[2025-02-18] MEDS: METFORMIN 500MG TABLET 1000 MG PO (08:40)
[2025-02-18] MEDS: RIVAROXABAN 2.5MG TABLET 2.5 MG PO (08:40)
--- NOTE | 2025-02-18 10:54 | P.DS_ITS ---
General Admission date:: 02/16/25 Discharge date: 02/18/25 HPI HPI HPI: Mr. Hilton is a 64-year-old male who resides at [facility]. He called 911 because of thoughts of self-harm. States he does not want to be at [facility] anymore. Has tried to hurt himself by standing in front of traffic. Patient has a history of bipolar disorder, CKD, CVA, type 2 diabetes, hypertension, hyperlipidemia, CAD status post CABG, PAD, obesity, right AKA and left BKA. States he has been depressed for years and it is worse now that he is at the [facility]. He does not like the people there and has been there too long per his report. States he aches all over. Falls asleep easily during questioning. Denies active plan for self-harm or harm to others at this time. Appears frankly depressed however. Noted to have some confusion, is off from his normal per the provider in the ED that is seen him before. Also noted to have hyperkalemia and unexplained leukocytosis. Due to his lab abnormalities and confusion, medicine consulted for evaluation and further management. On after arriving to the floor, he states he just feels poorly all over. Not interested in answering questions. Stable on room air. Afebrile. No nausea or vomiting. Wanting to sleep. Appears fatigued but able to answer questions. States he has been taking all of his meds as prescribed. Is on multiple medications for depression. Denies any thoughts of self-harm at this time. Denies any fever, chills, dysuria. Hospital Course Hospital Course Hospital Course: Easton Hilton is a 64-year-old male with a medical history significant for CAD/CABG, HFpEF, hypertension, hyperlipidemia, type 2 diabetes, left BKA, right AKA, mood disorder who presents with thoughts of self-harm and generalized weakness and confusion. Discussed case with ER physician, patient has more confused than normal. Also still has leukocytosis and elevated potassium. Requested admission for further management. I agreed to admit for further treatment and evaluation of possible toxic encephalopathy due to medications and workup of his leukocytosis. Patient remained hemodynamically stable. Oriented at baseline. Appears to be depressed. Case management consulted, discussed referring patient to new facility with administration of [facility]. Informed patient he would have to return back to [facility] while awaiting possible transfer. He. Okay with this. Will discharge back to intermediate care facility for further management as an outpatient. Problems addressed as follows: Encephalopathy Depression/mood disorder Suicidal thought -Patient is alert and oriented today. Appears depressed. No SI reported today. No concern for confusion on exam. Continue his home regimen of Klonopin, nightly trazodone, Seroquel today. Review of CT shows lesion suspicious for benign finding. Will need referral to neurosurgery for follow-up and serial imaging. May benefit from referral to psychiatry for further management of his bipolar depression Hypothyroid: Patient had elevated TSH at 6.8. Was initiated on 50 mcg levothyroxine. This may be an underlying metabolic component to his depression above. Needs repeat TSH in 6 weeks #Leukocytosis ? Initial WBC 19. White count has remained between 18 and 20. It is lymphocyte predominant. Peripheral smear obtained and still pending at discharge. Findings suspicious for hematologic malignancy. Will need to be followed as an outpatient. No overt signs of infection. Treated for 48 hours with antibiotics. Cultures remain negative. Patient remained afebrile. Stable to discharge with further management as an outpatient and follow-up of peripheral smear. #History of CABG, CAD ? Troponins normal, EKG without acute ischemic changes. Continue aspirin, statin. #FAVIO on CKD Hyperkalemia ? Creatinine bumped up to 2, has been better since admission. 1.7 on day of discharge and BUN 19. Potassium 4.6. Holding spironolactone and Entresto. #HFimpEF #Hypertension ? Stable. Continue carvedilol. Discontinued spironolactone and Entresto due to hyperkalemia and normal blood pressure #Type 2 diabetes #Left BKA, right AKA ? A1c 6.1 last visit. Morning glucoses in the 90s and low 100s. All glucoses prior to meals were less than 175. Required no sliding scale doses. At this time I would recommend until he is eating better decreasing his insulin regimen as an outpatient. Continue metformin and Jardiance only. Monitor glucose needs. Hold basal insulin and 70/30 insulin. #Mood disorder ? home Effexor 150 mg daily, prazosin 3 mg nightly. Resume Seroquel at regular dose of 400 mg daily Exam Data for Last 24 hours Vital signs and Labs for Last 24 Hours: Temp Pulse Resp BP Pulse Ox O2 Del Method 98.2 F 73 14 105/56 L 97 Room Air 02/18/25 07:32 02/18/25 07:32 02/18/25 07:32 02/18/25 07:32 02/18/25 07:32 02/18/25 09:00 Laboratory Results - last 24 hr 02/17/25 15:51: POC Glucose 165 H 02/17/25 20:40: POC Glucose 104 02/18/25 05:33: POC Glucose 108 02/18/25 05:45: WBC 18.1 H, RBC 3.55 L, Hgb 10.6 L, Hct 33.8 L, MCV 95.2 H, MCH 29.9, MCHC 31.4 L, RDW 14.0, Plt Count 319, MPV 10.2, Neut % (Auto) 12.8 L, Lymph % (Auto) 81.1 H, [place] % (Auto) 4.9, Eos % (Auto) 0.8, Baso % (Auto) 0.3, Neut # (Auto) 2.3, Lymph # (Auto) 14.7 H, [place] # (Auto) 0.9, Eos # (Auto) 0.2, Baso # (Auto) 0.1, Total Counted 100, Neutrophils % (Manual) 26 L, Lymphocytes % (Manual) 72 H, Monocytes % (Manual) 2, Platelet Estimate Normal, RBC Morphology Normal, Sodium 138, Potassium 4.6, Chloride 106, Carbon Dioxide 22, Anion Gap 14.6, BUN 19, Creatinine 1.70 H, Estimated Creat Clear 61, Estimated GFR 41 L, Est GFR ( Amer) 50 L, Glucose 107 H, Calcium 9.4, Phosphorus 3.7, Magnesium 1.6, Total Bilirubin 0.5, AST 38, ALT 12, Alkaline Phosphatase 82, Total Protein 7.5, Albumin 4.0, Globulin 3.5 H, Albumin/Globulin Ratio 1.1, Procalcitonin 0.080 I & O for Last 24 hours: Intake & Output 02/15/25 02/16/25 02/17/25 02/18/25 23:59 23:59 23:59 23:59 Intake Total 1714 / 1814 220 / 220 Output Total 1700 / 1700 200 / 200 Balance 14 Weight 99.904 kg 101.333 kg 97.159 kg Microbiology Reports for the Last 24 Hours: Microbiology 02/16/25 16:20 Blood Blood Culture - Preliminary NO GROWTH AFTER 24 HOURS 02/16/25 16:25 Blood Blood Culture - Preliminary NO GROWTH AFTER 24 HOURS Constitutional Constitutional: no acute distress *Routine HEENT Exam Head: Present normocephalic Eye: Present EOMI and PERRL ENT: Present mucous membranes moist *Routine Neck Exam Neck: Present supple; Absent lymphadenopathy *Routine Respiratory Exam Respiratory: Present CTA bilaterally *Routine Cardiovascular Exam Cardiovascular: Present RRR *Routine Abdominal Exam Abdominal: Present soft and normoactive bowel sounds; Absent tenderness *Routine Extremities Exam Extremities: Absent cyanosis, clubbing or edema Comments: Left BKA, right AKA. *Routine Skin Exam Skin: Present warm; Absent rash *Routine Neurological Exam Neurological: Present alert, oriented X3 and moving all extremities; Absent altered mental status Routine Psychiatric Exam Psychiatric: Present depressed; Absent suicidal ideation or homicidal ideation Results Data Completed and Pending Labs on day of discharge: Labs from last 24 hours 02/18/25 02/18/25 02/17/25 05:45 05:33 20:40 WBC 18.1 H RBC 3.55 L Hgb 10.6 L Hct 33.8 L MCV 95.2 H MCH 29.9 MCHC 31.4 L RDW 14.0 Plt Count 319 MPV 10.2 Neut % (Auto) 12.8 L Lymph % (Auto) 81.1 H [place] % (Auto) 4.9 Eos % (Auto) 0.8 Baso % (Auto) 0.3 Neut # (Auto) 2.3 Lymph # (Auto) 14.7 H [place] # (Auto) 0.9 Eos # (Auto) 0.2 Baso # (Auto) 0.1 Total Counted 100 Neutrophils % (Manual) 26 L Lymphocytes % (Manual) 72 H Monocytes % (Manual) 2 Platelet Estimate Normal RBC Morphology Normal Sodium 138 Potassium 4.6 Chloride 106 Carbon Dioxide 22 Anion Gap 14.6 BUN 19 Creatinine 1.70 H Estimated Creat Clear 61 Estimated GFR 41 L Est GFR ( Amer) 50 L Glucose 107 H POC Glucose 108 104 Calcium 9.4 Phosphorus 3.7 Magnesium 1.6 Total Bilirubin 0.5 AST 38 ALT 12 Alkaline Phosphatase 82 Total Protein 7.5 Albumin 4.0 Globulin 3.5 H Albumin/Globulin Ratio 1.1 Procalcitonin 0.080 02/17/25 15:51 WBC RBC Hgb Hct MCV MCH MCHC RDW Plt Count MPV Neut % (Auto) Lymph % (Auto) [place] % (Auto) Eos % (Auto) Baso % (Auto) Neut # (Auto) Lymph # (Auto) [place] # (Auto) Eos # (Auto) Baso # (Auto) Total Counted Neutrophils % (Manual) Lymphocytes % (Manual) Monocytes % (Manual) Platelet Estimate RBC Morphology Sodium Potassium Chloride Carbon Dioxide Anion Gap BUN Creatinine Estimated Creat Clear Estimated GFR Est GFR ( Amer) Glucose POC Glucose 165 H Calcium Phosphorus Magnesium Total Bilirubin AST ALT Alkaline Phosphatase Total Protein Albumin Globulin Albumin/Globulin Ratio Procalcitonin Preliminary micro results at discharge 02/16/25 16:20 Blood Culture - Preliminary Blood NO GROWTH AFTER 24 HOURS 02/16/25 16:25 Blood Culture - Preliminary Blood NO GROWTH AFTER 24 HOURS DS: Diagnosis Discharge Diagnosis (1) Encephalopathy: Status: Acute Code(s): G93.40 - Encephalopathy, unspecified (2) Leukocytosis: Status: Acute Code(s): D72.829 - Elevated white blood cell count, unspecified Qualifiers: Leukocytosis type: unspecified Qualified Code(s): D72.829 - Elevated white blood cell count, unspecified (3) Acute hyperkalemia: Status: Acute Code(s): E87.5 - Hyperkalemia (4) Suicidal ideation: Status: Acute Code(s): R45.851 - Suicidal ideations (5) Coronary artery disease: Status: Chronic Code(s): I25.10 - Atherosclerotic heart disease of [place] coronary artery without angina pectoris Qualifiers: Associated angina: without angina Coronary Disease-Associated Artery/Lesion type: [place] artery [place] vs. transplanted heart: [place] heart Qualified Code(s): I25.10 - Atherosclerotic heart disease of [place] coronary artery without angina pectoris (6) CKD (chronic kidney disease): Status: Acute Code(s): N18.9 - Chronic kidney disease, unspecified Qualifiers: Chronic kidney disease stage: unspecified stage Qualified Code(s): N18.9 - Chronic kidney disease, unspecified (7) History of right above knee amputation: Status: Resolved Code(s): Z89.611 - Acquired absence of right leg above knee (8) History of left below knee amputation: Status: Resolved Code(s): Z89.512 - Acquired absence of left leg below knee (9) Hypertension: Status: Chronic Code(s): I10 - Essential (primary) hypertension Qualifiers: Hypertension type: essential hypertension Qualified Code(s): I10 - Essential (primary) hypertension (10) Hyperlipidemia: Status: Chronic Code(s): E78.5 - Hyperlipidemia, unspecified Qualifiers: Hyperlipidemia type: mixed hyperlipidemia Qualified Code(s): E78.2 - Mixed hyperlipidemia (11) Diabetes mellitus: Status: Chronic Code(s): E11.9 - Type 2 diabetes mellitus without complications Qualifiers: Diabetes mellitus complication detail: with peripheral angiopathy with gangrene Diabetes mellitus complication status: with circulatory complication Diabetes mellitus long-term insulin use: with long-term use Diabetes mellitus type: type 2 Qualified Code(s): E11.52 - Type 2 diabetes mellitus with diabetic peripheral angiopathy with gangrene; 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 of insulin (12) Peripheral arterial disease: Status: Acute Code(s): I73.9 - Peripheral vascular disease, unspecified (13) Renal artery stenosis: Status: Acute Code(s): I70.1 - Atherosclerosis of renal artery (14) Anemia: Status: Acute Code(s): D64.9 - Anemia, unspecified Qualifiers: Anemia type: unspecified type Qualified Code(s): D64.9 - Anemia, unspecified (15) Brain lesion: Status: Acute Code(s): G93.9 - Disorder of brain, unspecified (16) AMS (altered mental status): Status: Acute Code(s): R41.82 - Altered mental status, unspecified Meds Home Medications and Allergies Home Medications ?Medication ?Instructions ?Recorded ?Confirmed ?Type aspirin 81 mg chewable tablet 81 mg PO DAILY 12/05/19 02/17/25 History atorvastatin 80 mg tablet 80 mg PO HS 12/05/19 02/17/25 History pantoprazole 40 mg tablet,delayed 40 mg PO DAILY 12/05/19 02/17/25 History release polyethylene glycol 3350 17 gram 17 g PO DAILYP PRN Constipation 12/05/19 02/17/25 History oral powder packet lactulose 10 gram/15 mL oral 30 ml PO DAILYP PRN Constipation 02/03/21 02/17/25 History solution acetaminophen 325 mg tablet 650 mg (2 x 325 mg) PO Q6HP PRN 04/02/21 02/17/25 Rx Mild To Moderate Pain docusate sodium 100 mg capsule 100 mg PO BIDP PRN Constipation 04/02/21 02/17/25 Rx metformin 1,000 mg tablet 1,000 mg PO BID #180 tabs 12/03/23 02/17/25 Rx multivitamin (One-A-Day Essential 1 tab PO DAILY 01/16/24 02/17/25 History tablet) rivaroxaban 2.5 mg tablet 2.5 mg PO BID Blood thinner 90 02/06/24 02/17/25 Rx days #180 tabs insulin human U-100 NPH-regulr 65 unit SQ DAILY 05/24/24 02/17/25 History 70-30 mix 100 unit/mL subcutaneous susp empagliflozin 25 mg tablet 25 mg PO DAILY #90 tabs 08/14/24 02/17/25 Rx (Jardiance) quetiapine 400 mg tablet 400 mg PO HS 08/29/24 02/17/25 History coQ10 (ubiquinol) 100 mg capsule 100 mg PO BID #180 caps 11/13/24 02/17/25 Rx (Qunol Kurtis CoQ10) dextromethorphan-guaifenesin 10 10 ml PO Q6HP PRN Congestion 11/13/24 02/17/25 History mg-100 mg/5 mL oral liquid (Robafen DM Cough) venlafaxine 150 mg 150 mg PO DAILY 01/22/25 02/17/25 History capsule,extended release 24 hr carvedilol 25 mg tablet (Coreg) 25 mg PO 0800,1700 02/09/25 02/17/25 History clonazepam 0.5 mg tablet 0.5 mg PO HS 02/09/25 02/17/25 History hydrocodone 5 mg-acetaminophen 325 1 tab PO BIDP PRN Severe Pain 02/09/25 02/17/25 History mg tablet (Scale Score 7-10) prazosin 1 mg capsule 3 mg PO HS 02/09/25 02/17/25 History trazodone 50 mg tablet 50 mg PO HS 02/09/25 02/17/25 History patiromer calcium sorbitex 8.4 8.4 g PO DAILY #30 ea 02/12/25 02/17/25 Rx gram oral powder packet (Veltassa) gabapentin 100 mg capsule 100 mg PO BID #60 caps 02/15/25 02/17/25 Rx insulin glargine 100 unit/mL (3 75 unit SQ HS 02/17/25 02/17/25 History mL) subcutaneous pen (Lantus Solostar U-100 Insulin) levothyroxine 50 mcg tablet 50 mcg PO DAILYDM 30 days #30 tabs 02/18/25 Rx (Synthroid) New Prescriptions to Start Prescriptions: levothyroxine [Synthroid] Pérez Orourke Allergies Allergy/AdvReac Type Severity Reaction Status Date / Time No Known Allergies Allergy Verified 02/12/25 10:27 Discharge Plan Disposition Patient Disposition: er Intermediate Care Fac Condition: Fair Discharge Order Discharge Orders: Discharge Order (Routine); Ordered 02/18/25 Ordered By: Pérez Orourke Follow up Plan Prescriptions/Medication Reconciliation: New levothyroxine [Synthroid] 50 mcg Tablet 50 mcg PO DAILYDM 30 Days Qty: 30 0RF Continued multivitamin [One-A-Day Essential] Tablet 1 tab PO DAILY dextromethorphan-guaifenesin [Robafen DM Cough] 10-100 mg/5 mL liquid 10 ml PO Q6HP PRN (Reason: Congestion) venlafaxine 150 mg capsule,extended release 24hr 150 mg PO DAILY metformin 1,000 mg tablet 1,000 mg PO BID Qty: 180 3RF rivaroxaban 2.5 mg tablet 2.5 mg PO BID 90 Days Qty: 180 3RF quetiapine 400 mg tablet 400 mg PO HS coQ10 (ubiquinol) [Qunol Kurtis CoQ10] 100 mg capsule 100 mg PO BID Qty: 180 3RF Velt[place] 8.4 gram powder in packet 8.4 g PO DAILY Qty: 30 0RF lactulose 10 gram/15 mL solution 30 ml PO DAILYP PRN (Reason: Constipation) Jardiance 25 mg tablet 25 mg PO DAILY Qty: 90 3RF gabapentin 100 mg capsule 100 mg PO BID Qty: 60 0RF pantoprazole 40 MG tablet,delayed release (DR/EC) 40 mg PO DAILY polyethylene glycol 3350 17 GM powder in packet 17 g PO DAILYP PRN (Reason: Constipation) aspirin 81 MG tablet,chewable 81 mg PO DAILY atorvastatin 80 MG tablet 80 mg PO HS acetaminophen 325 MG tablet 650 mg PO Q6HP PRN (Reason: Mild To Moderate Pain) 0RF docusate sodium 100 MG capsule 100 mg PO BIDP PRN (Reason: Constipation) 0RF prazosin 1 mg capsule 3 mg PO HS carvedilol [Coreg] 25 mg tablet 25 mg PO 0800,1700 trazodone 50 mg tablet 50 mg PO HS hydrocodone-acetaminophen 5-325 mg tablet 1 tab PO BIDP PRN (Reason: Severe Pain (Scale Score 7-10)) clonazepam 0.5 mg tablet 0.5 mg PO HS Held insulin NPH and regular human 100 unit/mL (70-30) suspension 65 unit SQ DAILY Hold Instructions: pending increase in blood sugar and evaluation by managing provider at [facility] insulin glargine [Lantus Solostar U-100 Insulin] 100 unit/mL (3 mL) Insulin Pen 75 unit SQ HS Hold Instructions: pending increase in blood sugar and evaluation by managing provider at [facility] Discontinued Entresto 97-103 mg tablet 1 tab PO BID Qty: 60 3RF Rx Instructions: HELD UNTIL 02/25/25. spironolactone [Aldactone] 25 mg tablet 25 mg PO DAILY Qty: 90 3RF Rx Instructions: HELD UNTIL 03/04/25 Problem Reconciliation Problems Reviewed?: Yes Patient Discharge Instructions ACTIVITY: Continue current activity DIET: continue same diet Patient Instructions: DI for Hyperkalemia, DI for Altered Mental Status, DI for Acute Kidney Injury Print Language: [place] Providers Primary Care Provider: Provider,Referral Admit Provider: Pérez Orourke Attending Provider: Pérez Orourke
--- NOTE | 2025-02-18 12:43 | PC.NURSE ---
Report called to [facility]. EMS notified for transport.
--- NOTE | 2025-02-18 15:31 | CARE MANAGER ---
Patient is a current resident of [facility]. Clinical faxed to [facility] in [place] for review. Patient discharged back to [place] today.
[2025-02-19 08:49] LABS: Peripheral Smear Review Scanned Result
== END 2025-02-18 13:51 ==
LOC: ER 16:25 → 2ND 16:34
PROVIDERS: Emergency Medicine; Admitting Provider Internal Medicine Adolescent Medicine; Emergency Provider Emergency Medicine; Visit Provider Internal Medicine Adolescent Medicine
DX: R45.851 Suicidal ideations (principal); F31.9 Bipolar disorder, unspecified; F32.A Depression, unspecified; I13.0 Hypertensive heart and chronic kidney disease with heart failure and stage 1 through stage 4 chronic kidney disease, or unspecified chronic kidney disease; E11.22 Type 2 diabetes mellitus with diabetic chronic kidney disease; G93.40 Encephalopathy, unspecified; I25.10 Atherosclerotic heart disease of native coronary artery without angina pectoris; E87.5 Hyperkalemia; N18.9 Chronic kidney disease, unspecified; Z89.611 Acquired absence of right leg above knee; Z89.512 Acquired absence of left leg below knee; E78.5 Hyperlipidemia, unspecified; E11.52 Type 2 diabetes mellitus with diabetic peripheral angiopathy with gangrene; Z79.4 Long term (current) use of insulin; I70.1 Atherosclerosis of renal artery; D64.9 Anemia, unspecified; Z95.1 Presence of aortocoronary bypass graft; E03.9 Hypothyroidism, unspecified; Z86.16 Personal history of COVID-19; Z87.891 Personal history of nicotine dependence
CPT/HCPCS: 36415; 70450; 71045; 80053; 81001; 82140; 82803; 82962; 83735; 84100; 84145; 84436; 84443; 84484; 84550; 85007; 85025; 85027; 85610; 86140; 87040; 87086; 87636; 93005; 97161; 99291; G0378; J0696; J7120

== ENCOUNTER 2025-02-19 11:53 | Inpatient (IN) | payer MEDICAID, SELFPAY ==
[2025-02-19] VITALS (7 sets, daily range): BP systolic 106–150; BP diastolic 63–90; PULSE 69–80; RESP 11–19; TEMP 36.4–36.8; O2SAT 96–98; BMI 45.3; BMI 42.4
--- NOTE | 2025-02-19 11:42 | CT_ITS ---
FINAL REPORT TECHNIQUE: Noncontrast exam This study was performed with techniques to keep radiation doses as low as reasonably achievable, (ALARA). Individualized dose reduction techniques using automated exposure control or adjustment of mA and/or kV according to the patient''s size were employed. CLINICAL HISTORY: mental status change, chest pain, nausea/vom COMPARISON: 02/16/2025 FINDINGS: No abnormal density is seen. Ventricles are normal. There is no hemorrhage. No mass effect is seen. Bone windows show no evidence of fracture. IMPRESSION: No acute findings Reviewed, Interpreted and Dictated by Pablito Moncada MD Transcribed by Adrianna Claire Authenticated and . [facility]
--- NOTE | 2025-02-19 11:42 | CT_ITS ---
FINAL REPORT CLINICAL HISTORY: mental status change, chest pain, nausea/vom COMPARISON: 10/21/2023 FINDINGS: CT NECK ANGIO, WITHOUT AND WITH CONTRAST TECHNIQUE: Thin section axial CT with contrast with multiplanar 3D MIP reconstruction. This study was performed with techniques to keep radiation doses as low as reasonably achievable, (ALARA). Individualized dose reduction techniques using automated exposure control or adjustment of mA and/or kV according to the patient''s size were employed. NASCET criteria and technique was utilized during interpretation. FINDINGS: Aortic arch: Arch shows no significant narrowing. Great vessel origins are widely patent. Right carotid: Moderate calcified plaque disease at the bifurcation. Mild ICA stenosis measures up to 20-30%. Left carotid: Moderate calcified plaque disease of the bifurcation. No significant stenosis. Vertebrals: Left vertebral artery is dominant. No significant stenosis is present. IMPRESSION: No significant stenosis of the cervical carotid arteries Reviewed, Interpreted and Dictated by Pablito Moncada MD Transcribed by Adrianna Claire Authenticated and [facility]
--- NOTE | 2025-02-19 11:42 | CT_ITS ---
FINAL REPORT TECHNIQUE: Oral and IV contrast enhanced exam This study was performed with techniques to keep radiation doses as low as reasonably achievable, (ALARA). Individualized dose reduction techniques using automated exposure control or adjustment of mA and/or kV according to the patient''s size were employed. CLINICAL HISTORY: mental status change, chest pain, nausea/vom COMPARISON: 02/11/2025 FINDINGS: Abdomen: Lung bases are clear. Liver has an unremarkable CT appearance. The spleen, pancreas and adrenal glands are unremarkable. Mild renal scarring is identified. Kidneys show no mass or obstruction. Surgical clips are noted in the region of the head of the pancreas. No bowel obstruction or fluid collection is seen. However, the large and small bowel are fluid-filled, which may represent an ileus or enteritis. Pelvis: The appendix is presumed resected. The bladder and prostate are unremarkable. No fluid collection or adenopathy is seen. IMPRESSION: No evidence of bowel obstruction or free air. Large and small bowel loops are fluid-filled, which may represent an ileus or enteritis. Reviewed, Interpreted and Dictated by Pablito Moncada MD Transcribed by Charley Cardona Authenticated and [facility]
--- NOTE | 2025-02-19 11:42 | CT_ITS ---
FINAL REPORT TECHNIQUE: Thin section axial CT with contrast with multiplanar reconstruction This study was performed with techniques to keep radiation doses as low as reasonably achievable, (ALARA). Individualized dose reduction techniques using automated exposure control or adjustment of mA and/or kV according to the patient''s size were employed. CLINICAL HISTORY: mental status change, chest pain, nausea/vom COMPARISON: 02/08/2025 FINDINGS: Pulmonary vessels enhance in normal fashion without evidence of embolism. There is no evidence of aneurysm. There is no evidence of pneumonia. There is coarse linear density in the lung bases most compatible with scarring, unchanged from previous. There is no significant pleural effusion. There is no significant pericardial effusion. No mediastinal or hilar adenopathy is present. IMPRESSION: No evidence of pulmonary embolism. Linear density in the lung bases most compatible with scar without evidence of pneumonia. Reviewed, Interpreted and Dictated by Pablito Moncada MD Transcribed by Magdalene Stahl Authenticated and . [facility]
--- NOTE | 2025-02-19 11:42 | CT_ITS ---
FINAL REPORT CLINICAL HISTORY: mental status change, chest pain, nausea/vom COMPARISON: 10/21/2023 FINDINGS: CTA HEAD TECHNIQUE: Thin section axial CT with contrast with 3D MIP reconstruction This study was performed with techniques to keep radiation doses as low as reasonably achievable, (ALARA). Individualized dose reduction techniques using automated exposure control or adjustment of mA and/or kV according to the patient's size were employed. FINDINGS: No aneurysm is seen. Major intracranial vessels are patent without significant stenosis. IMPRESSION: Unremarkable Reviewed, Interpreted and Dictated by Pablito Moncada MD Transcribed by Adrianna Claire Authenticated and [facility]
--- NOTE | 2025-02-19 11:46 | ECG_ITS ---
APPROVED REPORT Exam: Resting ECG HR:71 bpm ECG Measurements Heart Rate 71 AXES VT 202 P 53 QRSd 117 QRS -16 QT 428 T 154 QTc 450 Conclusion SINUS RHYTHM LEFT VENTRICULAR HYPERTROPHY AND ST-T CHANGE [VOLTAGE CRITERIA PLUS ST/T ABNORMALITY] No STEMI Electronically signed by : BRITNEY LUNA, 02/20/2025 06:24:22
--- NOTE | 2025-02-19 11:47 | PC.NURSE ---
FSBS IS 214 AT THIS TIME.
[2025-02-19 11:55] LABS: Coronavirus 19, PCR Not Detected (NotDetected); Influenza A, PCR Not Detected (NotDetected); Influenza B, PCR Not Detected (NotDetected)
--- NOTE | 2025-02-19 12:03 | HMH.EDGENADL ---
Discharge Plan Disposition Patient Disposition: Admitted Condition: Fair Clinical Impressions Clinical Impression: FAVIO (acute kidney injury), Leukocytosis, AMS (altered mental status), Hyperkalemia, Elevated uric acid in blood, Sepsis, Pancreatitis, Vomiting Discharge ED Provider: Mariana Marshall General Adult HPI General Chief complaint: Nausea/Vomiting/Diarrhea Stated complaint: VOMITING Time Seen by Provider: 02/19/25 11:53 Mode of Arrival: EMS Source of Information: Patient and EMS Description of Symptoms (Recalled from ER Triage Doc. by RN): Pt presents via [facility] from [facility] for evaluation of n/v that started today. Pt was discharged yesterday from [facility], and has a pending bone smear for concerns of leukemia. On arrival pt noted to be slow to respond, but able to answer questions appropriately History of Present Illness HPI narrative: This patient is a 64-year-old male with a history of bipolar disorder, CKD, CVA, type 2 diabetes, hypertension, hyperlipidemia, CAD status post CABG, PAD, obesity, right AKA and left BKA presenting to the emergency department from [facility] facility with concern for altered mental status, nausea, and vomiting that started today. Patient was just admitted here and discharged yesterday for altered mental status, leukocytosis with peripheral smear pending, medication adjustments related to mood disorder with concern for possible oversedation, and FAVIO on CKD. He was discharged after clinical improvement yesterday, and he had been doing well up until this morning around 7 AM. I called and had an indirect discussion with Amina, nurse at [facility] who advised that the patient was last known well around 7 AM and then had progressively worsening decline with altered mental status, lethargy, nausea, and vomiting. On my assessment of the patient, he is very out of it, slumped over on the bed. When I wake him, he states that he is having chest pain, but he does not provide further history as he is very sluggish to respond and lethargic. This is a new change from his previous evaluation by myself/04/07. Then, he was alert and conversational, though slightly disoriented. EMS arrived with the patient and noted that his vitals were normal en route and fingerstick blood Kos obtained was normal at 96. Related Data Home Medications ?Medication ?Instructions ?Recorded ?Confirmed atorvastatin 80 mg tablet 80 mg PO HS 12/05/19 02/19/25 pantoprazole 40 mg tablet,delayed 40 mg PO DAILY 12/05/19 02/19/25 release polyethylene glycol 3350 17 gram 17 g PO DAILYP PRN Constipation 12/05/19 02/19/25 oral powder packet lactulose 10 gram/15 mL oral 30 ml PO DAILYP PRN Constipation 02/03/21 02/19/25 solution multivitamin (One-A-Day Essential 1 tab PO DAILY 01/16/24 02/19/25 tablet) insulin human U-100 NPH-regulr 65 unit SQ DAILY 05/24/24 02/19/25 70-30 mix 100 unit/mL subcutaneous susp quetiapine 400 mg tablet 400 mg PO HS 08/29/24 02/19/25 dextromethorphan-guaifenesin 10 10 ml PO Q6HP PRN Congestion 11/13/24 02/19/25 mg-100 mg/5 mL oral liquid (Robafen DM Cough) venlafaxine 150 mg 150 mg PO DAILY 01/22/25 02/19/25 capsule,extended release 24 hr carvedilol 25 mg tablet (Coreg) 25 mg PO 0800,1700 02/09/25 02/19/25 clonazepam 0.5 mg tablet 0.5 mg PO HS 02/09/25 02/19/25 hydrocodone 5 mg-acetaminophen 325 1 tab PO BIDP PRN Severe Pain 02/09/25 02/19/25 mg tablet (Scale Score 7-10) prazosin 1 mg capsule 3 mg PO HS 02/09/25 02/19/25 trazodone 50 mg tablet 50 mg PO HS 02/09/25 02/19/25 insulin glargine 100 unit/mL (3 75 unit SQ HS 02/17/25 02/19/25 mL) subcutaneous pen (Lantus Solostar U-100 Insulin) aspirin 81 mg chewable tablet 81 mg PO DAILY 02/19/25 02/19/25 Previous Rx's ?Medication ?Instructions ?Recorded acetaminophen 325 mg tablet 650 mg (2 x 325 mg) PO Q6HP PRN 04/02/21 Mild To Moderate Pain docusate sodium 100 mg capsule 100 mg PO BIDP PRN Constipation 04/02/21 metformin 1,000 mg tablet 1,000 mg PO BID #180 tabs 12/03/23 rivaroxaban 2.5 mg tablet 2.5 mg PO BID Blood thinner 90 02/06/24 days #180 tabs empagliflozin 25 mg tablet 25 mg PO DAILY #90 tabs 08/14/24 (Jardiance) coQ10 (ubiquinol) 100 mg capsule 100 mg PO BID #180 caps 11/13/24 (Qunol Kurtis CoQ10) patiromer calcium sorbitex 8.4 8.4 g PO DAILY #30 ea 02/12/25 gram oral powder packet (Veltassa) gabapentin 100 mg capsule 100 mg PO BID #60 caps 02/15/25 levothyroxine 50 mcg tablet 50 mcg PO DAILYDM 30 days #30 tabs 02/18/25 (Synthroid) Allergies Allergy/AdvReac Type Severity Reaction Status Date / Time No Known Allergies Allergy Verified 02/19/25 12:26 [facility] Disclaimer: The information contained in this section may have been updated after the patient was seen, as this information can be updated by other users. Medical History Falls Dry skin Edema of amputation stump of left lower extremity Pain of amputation stump of left lower extremity Hyperkalemia Lethargy Fecal impaction Chest pain Peripheral arterial disease Colon cancer screening Anemia HFrEF (heart failure with reduced ejection fraction) Visual disturbance Systolic heart failure Renal artery stenosis LV dysfunction COVID-19 Below-knee amputation of left lower extremity Diabetes mellitus with diabetic neuropathy Acute kidney injury Dehiscence of amputation stump Postprocedural (acute) (chronic) kidney failure Non-pressure chronic ulcer of unspecified part of right lower leg with unspecified severity Peptic ulcer, site unspecified, unspecified as acute or chronic, without hemorrhage or perforation Chronic or unspecified duodenal ulcer with hemorrhage Acute respiratory failure with hypoxia 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 Chronic osteomyelitis of left foot Overweight (BMI 25.0-29.9) Above knee amputation of right lower extremity Postoperative wound dehiscence Hyperlipidemia Hypertension Coronary artery disease Ischemic ulcer of left foot Peripheral arterial occlusive disease Onychodystrophy Surgical History History of right above knee amputation History of left below knee amputation History of colonoscopy Status post transmetatarsal amputation of left foot History of coronary artery bypass graft Social History Smoking Status: Unknown if ever smoked second hand exposure: No alcohol intake: never substance use type: denies use current occupational status: retired Travel in the last 8 weeks: None household members: other housing: long term current occupational exposures/hazards: No caffeine: No Have you lived/traveled outside [place] in past 30 days?: No Contact w/someone who lives/traveled outside US past 30 days?: No Exposure to someone with infectious disease in past 14 days?: No Do you have a fever (greater than 100.4 F or 38 C)?: No Have you tested positive for COVID-19: No Exposed to someone with COVID-19 in past 14 days?: No Do you have a sore throat?: No Do you have a cough?: No Do you have any weakness?: No Do you have any diarrhea?: No Are you experiencing any unusual bleeding?: No Do you have any muscle aches/pain?: No Do you have any abdominal pain?: No Are you experiencing loss of taste or smell?: No Other Medical History Have you received the Flu Vaccine for this season: No Have you received the Pneumonia Vaccine: No ROS Obtained: Yes unobtainable due to mental status Physical Exam General General appearance: lethargic Comment: Ill-appearing, lethargic, slumped over to the left side of the bed and slow to respond Head Head exam: atraumatic and normocephalic Eye Eye exam: Present normal appearance, PERRL and EOMI ENT ENT exam: Present mucous membranes dry and normal external ear exam Neck Neck exam: Present normal inspection, full ROM and trachea midline; Absent tenderness Chest Chest inspection: Present normal inspection and symmetric chest wall rise; Absent tenderness Respiratory Respiratory exam: Present normal lung sounds bilaterally; Absent respiratory distress, wheezes, stridor or accessory muscle use Cardiovascular Cardiovascular exam: Present regular rate and normal rhythm Abdominal Exam Abdominal exam: Present soft; Absent distention, tenderness or guarding Extremities Exam Extremities exam: Present full ROM, normal capillary refill and other (BKA and AKA); Absent edema Back Exam Back exam: Present normal inspection and full ROM; Absent tenderness Neurological Exam Neurological exam: Present other (Slumped over to the left side of the bed, sluggish response with a GCS of 13. No obvious appreciable focal deficits. Follows commands appropriately and moves extremities equally.); Absent alert Expanded Neurological Exam Patient oriented to: Present person; Absent place or time Coma scale eye opening: To voice Coma scale motor response: Obeys commands Coma scale verbal response: Confused Coma scale total: 13 Comment: slurred speech, incorrect age and month, arouses to voice = NIHSS 4 Psychiatric Psychiatric exam: Present flat affect Skin Skin exam: Present warm, dry and pallor Medical Decision Making Medical Records Medical records reviewed: Yes I reviewed the patient's medical records. Screening: Per USPSTF and CDC recommendations, given the prevalence of disease in our region, it is our hospital?s policy to screen for HIV and viral Hepatitis for all patients aged 18 and over and those with ongoing risk factors. [place] Inquiry Pt receiving controlled substance: No Vital Signs: 02/19/25 11:42 02/19/25 11:47 02/19/25 12:46 Temperature 97.6 F Temperature Source Oral Pulse Rate 73 Pulse Rate [Right] 70 Respiratory Rate 18 13 Blood Pressure 106/63 L Blood Pressure [Right Arm] 150/89 H Blood Pressure Mean [Right Arm] 109 Blood Pressure Source [Right Arm] Automatic Cuff Blood Pressure Position [Right Arm] Sitting 02 Sat by Pulse Oximetry 98 96 Oxygen Delivery Method Room Air Room Air Room Air Lab Data Lab results reviewed: Yes I reviewed the patient's lab results. Lab Results 02/19/25 11:38: WBC 29.4 H* D, RBC 3.55 L, Hgb 10.6 L, Hct 34.6 L, MCV 97.5 H, MCH 29.9, MCHC 30.6 L, RDW 14.4, Plt Count 358, MPV 10.5 H, Neut % (Auto) 28.2 L, Lymph % (Auto) 65.7 H, [place] % (Auto) 5.2, Eos % (Auto) 0.3, Baso % (Auto) 0.3, Neut # (Auto) 8.3 H, Lymph # (Auto) 19.3 H, [place] # (Auto) 1.5 H, Eos # (Auto) 0.1, Baso # (Auto) 0.1, Total Counted 100, Neutrophils % (Manual) 37 L, Lymphocytes % (Manual) 60 H, Monocytes % (Manual) 3, Platelet Estimate Normal, Anisocytosis 1+, Ovalocytes 1+, Acanthocytes (Spur) 1+, PT 14.5 H, INR 1.33 H, APTT 32.3 H, Sodium 138, Potassium 5.8 H D, Chloride 103, Carbon Dioxide 7 L* D, Anion Gap 33.8 H, BUN 22 H, Creatinine 2.10 H D, Estimated Creat Clear 25, Estimated GFR 32 L, Est GFR ( Amer) 39 L D, Glucose 206 H, Uric Acid 8.7 H, Calcium 9.5, Phosphorus 6.4 H D, Magnesium 1.7, Total Bilirubin 0.9, AST 70 H D, ALT 31 D, Alkaline Phosphatase 79, Lactate Dehydrogenase 174 L, Troponin I 0.02, C-Reactive Protein 6.6 H D, NT-Pro-B Natriuret Pep 492 H, Total Protein 8.6 H, Albumin 4.5 D, Globulin 4.1 H, Albumin/Globulin Ratio 1.1, Lipase 1014 H, Procalcitonin 0.084, TSH 9.25 H D, Thyroxine (T4) 12.4 H, Acetone Level Small 02/19/25 11:49: SARS-CoV-2 (PCR) Not detected, Influenza A Untype (PCR) Not detected, Influenza Type B (PCR) Not detected 02/19/25 12:13: VBG pH 7.17 L, VBG pCO2 37.9, VBG pO2 61.4 H, VBG HCO3 13.5 L, VBG Total CO2 14.7 L, VBG O2 Saturation 85.6 H, VBG Base Excess -15.0 L, VBG Lactic Acid 8.4 H 02/19/25 13:30: Urine Color Yellow, Urine Appearance Clear, Urine pH 6.0, Ur Specific [place] 1.020, Urine Protein Trace, Urine Glucose (UA) 3+, Urine Ketones 1+, Urine Blood 2+ A, Urine Nitrate Negative, Urine Bilirubin 1+ A, Urine Urobilinogen 0.2, Ur Leukocyte Esterase 1+ A, Urine RBC 5-10, Urine WBC 3-5, Ur Squamous Epith Cells Occasional, Urine Bacteria Trace, Urine Yeast 2+ 02/19/25 11:38 02/19/25 11:38 Orders (Tests/Meds): ED MEDICATIONS Generic Name Dose Route Start Last Admin Trade Name Freq PRN Reason Stop Dose Admin Vancomycin/PEG/NADA/Lysine/Water 1.5 gm in 300 mls @ 150 mls/hr 02/19/25 13:15 02/19/25 13:45 Vancomycin 1.5gm/300ml (Peg) Premix IV 03/01/25 13:14 150 mls/hr Q24H SHARATH Administration Discontinued Medications Generic Name Dose Route Start Last Admin Trade Name Kennethq PRN Reason Stop Dose Admin Lactated Ringer's 1,000 mls @ 999 mls/hr 02/19/25 12:58 02/19/25 13:38 Lactated Ringer's 1000 Ml Bag IV 02/19/25 13:58 999 mls/hr .Q1H1M ONE Administration Piperacillin Sod/Tazobactam 50 mls @ 100 mls/hr 02/19/25 12:59 02/19/25 13:34 Sod 3.375 gm/ Sodium Chloride IV 02/19/25 13:28 100 mls/hr ONCE ONE Administration Lactated Ringer's 1,000 mls @ 999 mls/hr 02/19/25 13:39 Lactated Ringer's 1000 Ml Bag IV 02/19/25 14:39 .Q1H1M ONE Iopamidol 150 ml 02/19/25 12:18 02/19/25 12:19 Iopamidol-370 (76%);100ml Bottle IV 02/19/25 12:19 150 ml ONCE ONE Administration Miscellaneous 1 each 02/19/25 13:00 02/19/25 13:40 Vancomycin Consult Request NOTAPPLIC 03/21/25 12:59 1 each CONSULT PHARMACY SHARATH Administration Ondansetron HCl 4 mg 02/19/25 12:34 02/19/25 12:45 Ondansetron 4mg/2ml Vial IV 02/19/25 12:35 4 mg ONCE ONE Administration Sodium Chloride 50 ml 02/19/25 12:18 02/19/25 12:19 0.9 % Sodium Chloride 50 Ml Vial IV 02/19/25 12:19 50 ml ONCE ONE Administration Sodium Chloride 10 ml 02/19/25 12:18 02/19/25 12:19 Sodium Chloride 0.9% 10ml Syr (Rad Only) IV 02/19/25 12:19 10 ml ONCE ONE Administration ORDERS Category Date Time Status CT abdomen pelvis w con Stat Cat Scan 02/19/25 11:[address] angio chest PE protocol Stat Cat Scan 02/19/25 11:[address] angio head Stat Cat Scan 02/19/25 11:[address] angio neck Stat Cat Scan 02/19/25 11:[address] head/brain wo con Stat Cat Scan 02/19/25 11:42 Completed Gastroenterology Consult [Consult to Gastroenterology] Cons 02/19/25 13:46 Active [CONS] Routine US RUQ [US abdomen limited] Stat Exams 02/19/25 13:31 Taken Acetone, Serum (Rapid) Stat Lab 02/19/25 11:38 Completed BNP [NT Pro Brain Natriuretic Pep.] Stat Lab 02/19/25 11:38 Completed CRP [C-Reactive Protein] Stat Lab 02/19/25 11:38 Completed Complete Blood Count Auto Diff Stat Lab 02/19/25 11:38 Completed Comprehensive Metabolic Panel Stat Lab 02/19/25 11:38 Completed D-Dimer Stat Lab 02/19/25 14:20 Received Fibrinogen Stat Lab 02/19/25 14:20 Received LDH [Lactate Dehydrogenase] Stat Lab 02/19/25 11:38 Completed Lipase Stat Lab 02/19/25 11:38 Completed Magnesium Stat Lab 02/19/25 11:38 Completed PTT [Activated Partial Thrombo Time] Stat Lab 02/19/25 11:38 Completed Peripheral Smear Review Stat Lab 02/19/25 11:38 Received Phosphorous Stat Lab 02/19/25 11:38 Completed Procalcitonin Stat Lab 02/19/25 11:38 Completed Prothrombin Time INR Stat Lab 02/19/25 11:38 Completed Rapid PCR Covid and Flu A/B Stat Lab 02/19/25 11:49 Completed T4 (Thyroxine) Stat Lab 02/19/25 11:38 Completed TSH [Thyroid Stimulating Hormone] Stat Lab 02/19/25 11:38 Completed Trop I [Troponin I] Stat Lab 02/19/25 11:38 Completed Troponin I Q3H Lab 02/19/25 17:25 Ordered Troponin I Q3H Lab 02/19/25 17:45 Ordered UA [Urinalysis and Microscopic] Stat Lab 02/19/25 13:30 Completed Uric Acid Stat Lab 02/19/25 11:38 Completed Blood Culture Stat Micro 02/19/25 13:21 Received Urine Culture Stat Micro 02/19/25 13:51 Received VBG [Venous Blood Gas] Stat RT 02/19/25 12:13 Completed ECG Data Tracing #1: I reviewed this ECG and interpreted as documented below: Normal sinus rhythm with a ventricular rate of [address] changes concerning for STEMI. Left ventricular hypertrophy. Normal intervals ECG initial impression date: 02/19/25 ECG initial impression time: 11:53 Medical Decision Narrative: In summary, this patient is a 64-year-old male presenting to the Emergency Department for evaluation of altered mental status, nausea, and vomiting. He complains of chest pain. He is profoundly altered on assessment, lethargic, GCS of 13. He has dysarthria. Differential diagnoses considered include but are not limited to CVA, intracranial hemorrhage, ACS, PE, pancreatitis, colitis, sepsis, UTI. Ruling out the most morbid conditions drove assessment. It should be noted patient's history includes type 2 diabetes, prior CVA, CKD, CAD, MARTY, mood disorder, polypharmacy which may or may not be at goal therapy. This complicates all aspects of care by increasing patient's risk for morbidity. I reviewed patient's past medical records and noted patient as detailed in HPI. He was found to have a small hyperdense brain lesion on CT scan at that time, for which neurosurgery at recommended outpatient follow-up. He was also found to have leukocytosis, which appears to be chronic without obvious source of infection, so peripheral smear was sent and is pending. On exam, the patient is lethargic, slumped over, GCS of 13 sluggish to respond with dysarthria. NIH stroke scale is 4 with last known well 7 AM per family at [facility]. Vitals are normal on cardiac telemetry with exception of mild hypertension. Fingerstick blood close is 1214 on our assessment. Workup included broad lab evaluation to evaluate for infectious, metabolic, cardiac derangements. Patient was taken emergently for stroke CT scans as well as CTA chest, CT abdomen pelvis with IV contrast given his vomiting, reports of chest pain, and altered mental status. I independently interpreted CT scans prior to the radiologist read and noted no obvious intracranial hemorrhage, no large PE, no pneumothorax, no large focal consolidation concerning for pneumonia, no bowel obstruction, no evidence of cholecystitis. Please see their read for final interpretation. Labs were obtained that demonstrated mildly elevated coags, he has a significant lactic acidosis with a pH of 7.17. He has worsening FAVIO, hyperkalemia, hyperphosphatemia, mildly elevated AST. He has significantly elevated lipase, which is new. He is elevated TSH and slightly elevated T4. Urinalysis is concerning for infection with 1+ leukocyte esterase on urine specimen. He also has knees. Patient had an acute change in mental status, but no large vessel occlusion noted on imaging. I power shared with [employer] through [employer] and had interactive discussion with neuroradiologist who confirmed this. I considered thrombolytics in the setting of possible stroke, however the patient is outside of window for TNK with worsening mental status since 7 AM. Given his significant lab derangements, I feel he has toxic metabolic encephalopathy. I feel he is likely septic with pancreatitis. Patient was given 2 L bolus of IV fluids as well as IV vancomycin and Zosyn for broad empiric antibiotic coverage. I feel the patient requires admission for altered mental status, lethargy, pancreatitis, lactic acidosis, sepsis, worsening leukocytosis in the setting of possible underlying malignancy with peripheral smear pending. I had an interactive discussion with GI Dr. Rodarte who will evaluate the patient given acute pancreatitis. I had an indirect discussion with the hospitalist who admitted the patient in stable condition for further evaluation and management. Critical Care Critical Care Time Critical Care Time: Yes Attestation: On 02/19/25, the high probability of a clinically significant, sudden or life threatening deterioration of the following system(s) required my full and direct attention, intervention and personal management. The time I documented below is in addition to time spent performing reported procedures but includes the following listed in this critical care notation. Total Time Total Critical Care Time: 45
--- NOTE | 2025-02-19 12:11 | PC.NURSE ---
1208 IV established, labs sent, ct called to notify pt is ok to transfer now
--- NOTE | 2025-02-19 12:11 | PC.NURSE ---
[address] scanner by bed
[2025-02-19] MEDS: 0.9 % SODIUM CHLORIDE 50 ML VIAL IV (12:19)
[2025-02-19] MEDS: SODIUM CHLORIDE 0.9% 10ML SYR (RAD ONLY) 10 ML IV (12:19)
[2025-02-19] MEDS: IOPAMIDOL-370 (76%);100ML BOTTLE 150 ML IV (12:19)
[2025-02-19 12:37] LABS: Activated Partial Thrombo Time 32.3 seconds (22.8-30.6); INR 1.33 (0.9-1.1); Prothrombin Time 14.5 seconds (10.1-12.5)
[2025-02-19 12:39] LABS: C-Reactive Protein 6.6 mg/L (0-4)
[2025-02-19] MEDS: ONDANSETRON 4MG/2ML VIAL 4 MG IV (12:45)
[2025-02-19 12:49] LABS: Acetone, Serum (Rapid) Small (None Detect)
[2025-02-19 12:52] LABS: Basophils # 0.1 K/mm3 (0-0.2); Basophils % 0.3 % (0.1-2.0); Eosinophils # 0.1 K/mm3 (0.0-0.4); Eosinophils % 0.3 % (0.1-12.0); Hematocrit 34.6 % (42.0-52.0); Hemoglobin 10.6 g/dL (14.1-18.0); Lymphocytes # 19.3 K/mm3 (0.7-4.5); Lymphocytes % 65.7 % (10-50); Mean Corpuscular HGB Conc 30.6 g/dL (31.8-35.4); Mean Corpuscular Hemoglobin 29.9 pg (27.0-31.2); Mean Corpuscular Volume 97.5 fl (80-94); Mean Platelet Volume 10.5 fl (7.4-10.4); Monocytes # 1.5 K/mm3 (0.1-1.0); Monocytes % 5.2 % (1.7-9.3); Neutrophils # 8.3 K/mm3 (1.8-7.8); Neutrophils % 28.2 % (37.0-80.0); Platelet Count 358 K/mm3 (142-424); Red Blood Count 3.55 M/mm3 (4.60-6.20); Red Cell Distribution Width 14.4 % (11.5-17.5); White Blood Count 29.4 K/mm3 (4.8-10.8)
[2025-02-19 12:59] LABS: MANUAL DIFFERENTIAL MANUAL DIFFERENTIAL (MANUAL DIFF)
--- NOTE | 2025-02-19 13:03 | PC.NURSE ---
Attempted to insert clay catheter. Unable to pass catheter due to patient's anatomy. male armando applied with provider approval to attempt to obtain urine sample. This RN attempted to insert second iv. attempt was unsuccessful. NCT to attempt to obtain second set of blood cultures.
[2025-02-19 13:07] LABS: Thyroid Stimulating Hormone 9.25 uIU/mL (0.465-4.68)
--- NOTE | 2025-02-19 13:11 | PC.NURSE ---
This RN notifies Rolando CARABALLO of WBC of 29.4
[2025-02-19 13:12] LABS: VBG HCO3 13.5 mmol/L (23-30); VBG Oxygen Saturation 85.6 % (50-70); VBG PCO2 37.9 mmol/L (35-51); VBG PO2 61.4 mmol/L (28-40); VBG Total CO2 14.7 mmol/L (23-27)
[2025-02-19 13:16] LABS: Lactate Venous 8.4 mmol/L (0.4-2.0); VBG PH 7.17 mmol/L (7.31-7.41)
[2025-02-19 13:23] LABS: Alanine Aminotransferase 31 U/L (12-78); Albumin Level 4.5 g/dl (3.5-5.0); Albumin/Globulin Ratio 1.1 (1.1-1.8); Alkaline Phosphatase 79 U/L (38-126); Anion Gap 33.8 mEq/L (5-15); Aspartate Amino Transferase 70 U/L (17-59); Bilirubin,Total 0.9 mg/dl (0.2-1.3); Blood Urea Nitrogen 22 mg/dl (9-20); Calcium 9.5 mg/dl (8.4-10.2); Chloride 103 mmol/L (98-107); Creatinine Clearance Estimated 25 mL/min (50-200); Estimated Glomerular Filt Rate 32 ml/min (>60); GFR (African American) 39 ML/MIN (>60); Globulin 4.1 g/dL (1.3-3.2); Glucose 206 mg/dl (74-100); NT Pro Brain Natriuretic Pep. 492 pg/mL (0-125); Potassium 5.8 mmoL/L (3.5-5.1); Procalcitonin 0.084 ng/mL (0.0-2.0); Sodium 138 mmol/L (136-145); T4 (Thyroxine) 12.4 ug/dl (5.53-11.0); Total Protein,Serum 8.6 g/dl (6.3-8.2); Troponin I 0.02 ng/ml (0.00-0.034)
[2025-02-19 13:27] LABS: Carbon Dioxide 7 mmol/L (22.0-30.0); Lipase 1014 U/L (23-300)
--- NOTE | 2025-02-19 13:31 | US_ITS ---
FINAL REPORT CLINICAL HISTORY: nausea, vomiting, elevated lipase, sepsis FINDINGS: ULTRASOUND RIGHT UPPER QUADRANT Sonographic imaging of the right upper quadrant was obtained. The pancreas is partially obscured. The liver is unremarkable. There is no evidence of gallstones. There is no gallbladder wall thickening. There is no biliary ductal dilatation. The common duct is normal at 5 mm. Limited images of the right kidney are unremarkable. IMPRESSION: Unremarkable right upper quadrant ultrasound. Reviewed, Interpreted and Dictated by Pablito Moncada MD Transcribed by Marilia Noyola Authenticated and [facility]
[2025-02-19] MEDS: PIPERACILLIN/TAZO 3.375 GM in 0.9 % SODIUM CHLORIDE 50 ML IV (13:34)
[2025-02-19 13:36] LABS: Lymphocytes % 60 % (10-50); Monocytes % 3 % (2-9); Neutrophils % 37 % (42-76); Total Cells Counted 100
[2025-02-19 13:37] LABS: Acanthocytes 1+; Anisocytosis 1+; Ovalocytes 1+; Platelet Estimate Normal
[2025-02-19] MEDS: LACTATED RINGERS 1000ML 1,000 ML 999 ML IV ×2 (13:38→16:01)
[2025-02-19] MEDS: VANCOMYCIN CONSULT REQUEST 1 EACH NOTAPPLIC (13:40)
[2025-02-19] MEDS: VANCOMYCIN/WATER FOR INJ (PEG) 1.5 GM/300 ML PIGGYBACK IV (13:45)
--- NOTE | 2025-02-19 13:49 | PC.NURSE ---
Call received from lab to notify of need for additional blue top. Lab called back and requested lab to come draw sample due to having to redraw 3 other tubes.
[2025-02-19 14:04] LABS: Microscopic, Urine URINE MICROSCOPIC (MICROSCOPIC)
[2025-02-19 14:07] LABS: Appearance,Urine CLEAR (Clear); Blood, Urine 2+ (Negative); Color,Urine YELLOW (Yellow); Glucose,Urine (UA) 3+ (Negative); Ketones,Urine 1+ (Negative); Leukocyte Esterase,Urine 1+ (Negative); Nitrate,Urine Negative (Negative); Protein,Urine TRACE (Negative); Urobilinogen,Urine 0.2 EU/dl (0.2)
[2025-02-19 14:36] LABS: Magnesium 1.7 mg/dl (1.6-2.3); Phosphorous 6.4 mg/dl (2.5-4.5)
[2025-02-19 14:36] LABS: Bilirubin,Urine 1+ (Negative)
[2025-02-19 14:38] LABS: Lactate Dehydrogenase 174 U/L (313-618); Uric Acid 8.7 mg/dl (3.5-8.5)
[2025-02-19 14:38] LABS: Bacteria,Urine Trace /lpf; Squamous Epithelial Cell,Urine Occasional #/hpf (0-5); Yeast,Urine 2+ /lpf
--- NOTE | 2025-02-19 14:58 | PC.NURSE ---
HOUSE WORKER NOTIFIED OF ADMISSION
[2025-02-19 14:59] LABS: Fibrinogen 260 mg/dL (229.9-363.5)
--- NOTE | 2025-02-19 15:14 | HMH.PHAINT1 ---
Pharmacy Intervention Comments: MEDICATION RECONCILIATION COMPLETED ON PATIENT USING DISCHARGE SUMMARY FROM YESTERDAY. -LENI CHRISTOPHER, MAGOD
--- NOTE | 2025-02-19 15:22 | PC.NURSE ---
received report from garry benjamin
--- NOTE | 2025-02-19 15:23 | PC.NURSE ---
care handoff called to adia REN
[2025-02-19 15:28] LABS: D-Dimer 0.63 ug/mL (0.0-0.5)
--- NOTE | 2025-02-19 16:35 | PC.NURSE ---
unable to reach next of kin, says phone number is a none working number. called [facility] and they stated that is the only number they have as well and are never able to reach family. paloma at [facility] gave more information on patient while he's been under their care and states he is a full code with them. they have done several med changes recently. on 02/05/25 they decreased gabapentin from 300 tid to 100 bid, decreased clonazepam from qid to qhs, decrease trazadone from 150 to 50mg, held insulin due to not needing it, dc phenergran completely, dc cyclobenzapine completely due to patient having multiple falls and lethargic per paloma. she states pt is normally alert and oriented, continent of bowel and bladder, transfers self from bed to wheelchair. she states pt has been declining in the last few stays at the hospital.
--- NOTE | 2025-02-19 17:07 | P.CONS_ITS ---
History of Present Illness *Admission Date: 02/19/25 *Reason for visit:: Abdominal complaints *History of present illness: Mr. Hilton is a 64-year-old gentleman [facility] resident who is admitted today from the emergency department. It appears that the patient was just discharged yesterday and has had a lot of medication adjustments because of his bipolar disorder and depression. He was not having abdominal complaints according to discharge summary on 02/18. The patient Mayra presented to the emergency department from the longterm today. The patient had significant leukocytosis and altered mental status. He presents with nausea and vomiting and difficulty with some appropriately answering questions. He is sluggish to respond and lethargic. On examination in the emergency department, ED physician (Mariana Marshall) notified me today that he had elevated pancreatic chemistries. CAT scan showed fluid-filled large and small bowel loops possibly related to ileus or enteritis. Abdominal ultrasound showed no gallstones or cholecystitis or CBD dilation. [facility] Disclaimer: The information contained in this section may have been updated after the patient was seen, as this information can be updated by other users. Medical History Falls Dry skin Edema of amputation stump of left lower extremity Pain of amputation stump of left lower extremity Hyperkalemia Lethargy Fecal impaction Chest pain Peripheral arterial disease Colon cancer screening Anemia HFrEF (heart failure with reduced ejection fraction) Visual disturbance Systolic heart failure Renal artery stenosis LV dysfunction COVID-19 Below-knee amputation of left lower extremity Diabetes mellitus with diabetic neuropathy Acute kidney injury Dehiscence of amputation stump Postprocedural (acute) (chronic) kidney failure Non-pressure chronic ulcer of unspecified part of right lower leg with unspecified severity Peptic ulcer, site unspecified, unspecified as acute or chronic, without hemorrhage or perforation Chronic or unspecified duodenal ulcer with hemorrhage Acute respiratory failure with hypoxia 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 Chronic osteomyelitis of left foot Overweight (BMI 25.0-29.9) Above knee amputation of right lower extremity Postoperative wound dehiscence Hyperlipidemia Hypertension Coronary artery disease Ischemic ulcer of left foot Peripheral arterial occlusive disease Onychodystrophy Surgical History History of right above knee amputation History of left below knee amputation History of colonoscopy Status post transmetatarsal amputation of left foot History of coronary artery bypass graft Social History (Updated 02/19/25 @ 15:22 by Marsha Ceja RN) Smoking Status: Unknown if ever smoked second hand exposure: No alcohol intake: never substance use type: denies use current occupational status: retired Travel in the last 8 weeks: None household members: other housing: longterm current occupational exposures/hazards: No caffeine: No Have you lived/traveled outside [place] in past 30 days?: No Contact w/someone who lives/traveled outside [place] past 30 days?: No Exposure to someone with infectious disease in past 14 days?: No Do you have a fever (greater than 100.4 F or 38 C)?: No Have you tested positive for COVID-19: No Exposed to someone with COVID-19 in past 14 days?: No Do you have a sore throat?: No Do you have a cough?: No Do you have any weakness?: No Are you experiencing any nausea/vomitting?: Yes Do you have any diarrhea?: No Are you experiencing any unusual bleeding?: No Do you have any muscle aches/pain?: No Do you have any abdominal pain?: No Are you experiencing loss of taste or smell?: No Meds Home Medications and Allergies Home Medications ?Medication ?Instructions ?Recorded ?Confirmed ?Type atorvastatin 80 mg tablet 80 mg PO HS 12/05/19 02/19/25 History pantoprazole 40 mg tablet,delayed 40 mg PO DAILY 12/05/19 02/19/25 History release polyethylene glycol 3350 17 gram 17 g PO DAILYP PRN Constipation 12/05/19 02/19/25 History oral powder packet lactulose 10 gram/15 mL oral 30 ml PO DAILYP PRN Constipation 02/03/21 02/19/25 History solution acetaminophen 325 mg tablet 650 mg (2 x 325 mg) PO Q6HP PRN 04/02/21 02/19/25 Rx Mild To Moderate Pain docusate sodium 100 mg capsule 100 mg PO BIDP PRN Constipation 04/02/21 02/19/25 Rx metformin 1,000 mg tablet 1,000 mg PO BID #180 tabs 12/03/23 02/19/25 Rx multivitamin (One-A-Day Essential 1 tab PO DAILY 01/16/24 02/19/25 History tablet) rivaroxaban 2.5 mg tablet 2.5 mg PO BID Blood thinner 90 02/06/24 02/19/25 Rx days #180 tabs insulin human U-100 NPH-regulr 65 unit SQ DAILY 05/24/24 02/19/25 History 70-30 mix 100 unit/mL subcutaneous susp empagliflozin 25 mg tablet 25 mg PO DAILY #90 tabs 08/14/24 02/19/25 Rx (Jardiance) quetiapine 400 mg tablet 400 mg PO HS 08/29/24 02/19/25 History coQ10 (ubiquinol) 100 mg capsule 100 mg PO BID #180 caps 11/13/24 02/19/25 Rx (Qunol Kurtis CoQ10) dextromethorphan-guaifenesin 10 10 ml PO Q6HP PRN Congestion 11/13/24 02/19/25 History mg-100 mg/5 mL oral liquid (Robafen DM Cough) venlafaxine 150 mg 150 mg PO DAILY 01/22/25 02/19/25 History capsule,extended release 24 hr carvedilol 25 mg tablet (Coreg) 25 mg PO 0800,1700 02/09/25 02/19/25 History clonazepam 0.5 mg tablet 0.5 mg PO HS 02/09/25 02/19/25 History hydrocodone 5 mg-acetaminophen 325 1 tab PO BIDP PRN Severe Pain 02/09/25 02/19/25 History mg tablet (Scale Score 7-10) prazosin 1 mg capsule 3 mg PO HS 02/09/25 02/19/25 History trazodone 50 mg tablet 50 mg PO HS 02/09/25 02/19/25 History patiromer calcium sorbitex 8.4 8.4 g PO DAILY #30 ea 02/12/25 02/19/25 Rx gram oral powder packet ([place]) gabapentin 100 mg capsule 100 mg PO BID #60 caps 02/15/25 02/19/25 Rx insulin glargine 100 unit/mL (3 75 unit SQ HS 02/17/25 02/19/25 History mL) subcutaneous pen (Lantus Solostar U-100 Insulin) aspirin 81 mg chewable tablet 81 mg PO DAILY 02/19/25 02/19/25 History levothyroxine 50 mcg tablet 50 mcg PO DAILY 02/19/25 02/19/25 History (Synthroid) New Prescriptions to Start Prescriptions: Allergies Allergy/AdvReac Type Severity Reaction Status Date / Time No Known Allergies Allergy Verified 02/19/25 12:26 Exam (Inpt) Vital signs and Labs for Last 24 Hours: Temp Pulse Resp BP Pulse Ox O2 Del Method 98.3 F 69 11 L 116/76 98 Room Air 02/19/25 15:43 02/19/25 15:56 02/19/25 15:56 02/19/25 15:56 02/19/25 16:05 02/19/25 16:05 Laboratory Results - last 24 hr 02/19/25 11:38: WBC 29.4 H* D, RBC 3.55 L, Hgb 10.6 L, Hct 34.6 L, MCV 97.5 H, MCH 29.9, MCHC 30.6 L, RDW 14.4, Plt Count 358, MPV 10.5 H, Neut % (Auto) 28.2 L , Lymph % (Auto) 65.7 H, [place] % (Auto) 5.2, Eos % (Auto) 0.3, Baso % (Auto) 0.3, Neut # (Auto) 8.3 H, Lymph # (Auto) 19.3 H, [place] # (Auto) 1.5 H, Eos # (Auto) 0.1, Baso # (Auto) 0.1, Total Counted 100, Neutrophils % (Manual) 37 L, L ymphocytes % (Manual) 60 H, Monocytes % (Manual) 3, Platelet Estimate Normal, Anisocytosis 1+, Ovalocytes 1+, Acanthocytes (Spur) 1+, PT 14.5 H, INR 1.33 H, A PTT 32.3 H, Sodium 138, Potassium 5.8 H D, Chloride 103, Carbon Dioxide 7 L* D, Anion Gap 33.8 H, BUN 22 H, Creatinine 2.10 H D, Estimated Creat Clear 25, E stimated GFR 32 L, Est GFR ( Amer) 39 L D, Glucose 206 H, Uric Acid 8.7 H , Calcium 9.5, Phosphorus 6.4 H D, Magnesium 1.7, Total Bilirubin 0.9, AST 70 H D, ALT 31 D, Alkaline Phosphatase 79, Lactate Dehydrogenase 174 L, Troponin I 0.02, C-Reactive Protein 6.6 H D, NT-Pro-B Natriuret Pep 492 H, Total Protein 8.6 H, Albumin 4.5 D, Globulin 4.1 H, Albumin/Globulin Ratio 1.1, Lipase 1014 H , Procalcitonin 0.084, TSH 9.25 H D, Thyroxine (T4) 12.4 H, Acetone Level Small 02/19/25 11:49: SARS-CoV-2 (PCR) Not detected, Influenza A Untype (PCR) Not detected, Influenza Type B (PCR) Not detected 02/19/25 12:13: VBG pH 7.17 L, VBG pCO2 37.9, VBG pO2 61.4 H, VBG HCO3 13.5 L, V BG Total CO2 14.7 L, VBG O2 Saturation 85.6 H, VBG Base Excess -15.0 L, VBG Lactic Acid 8.4 H 02/19/25 13:30: Urine Color Yellow, Urine Appearance Clear, Urine pH 6.0, Ur Specific Pony 1.020, Urine Protein Trace, Urine Glucose (UA) 3+, Urine Ketones 1+, Urine Blood 2+ A, Urine Nitrate Negative, Urine Bilirubin 1+ A, Urine Urobilinogen 0.2, Ur Leukocyte Esterase 1+ A, Urine RBC 5-10, Urine WBC 3- 5, Ur Squamous Epith Cells Occasional, Urine Bacteria Trace, Urine Yeast 2+ 02/19/25 14:20: Fibrinogen 260, D-Dimer 0.63 H I & O for Labs for Last 24 Hours: Intake & Output 02/16/25 02/17/25 02/18/25 02/19/25 23:59 23:59 23:59 23:59 Intake Total 1000 / 1000 Balance 1000 / 1000 Weight 216 lb 4 oz Comments:: Mild gaseous distention, normoactive bowel sounds with no tympany, no rebound or guarding, no hernias, patient does have lethargy and is not reporting abdominal tenderness to palpation Results Labs 02/19/25 11:38 02/19/25 11:38 Labs: Laboratory Results - last 24 hr 02/19/25 11:38: WBC 29.4 H* D, RBC 3.55 L, Hgb 10.6 L, Hct 34.6 L, MCV 97.5 H, MCH 29.9, MCHC 30.6 L, RDW 14.4, Plt Count 358, MPV 10.5 H, Neut % (Auto) 28.2 L , Lymph % (Auto) 65.7 H, [place] % (Auto) 5.2, Eos % (Auto) 0.3, Baso % (Auto) 0.3, Neut # (Auto) 8.3 H, Lymph # (Auto) 19.3 H, [place] # (Auto) 1.5 H, Eos # (Auto) 0.1, Baso # (Auto) 0.1, Total Counted 100, Neutrophils % (Manual) 37 L, L ymphocytes % (Manual) 60 H, Monocytes % (Manual) 3, Platelet Estimate Normal, Anisocytosis 1+, Ovalocytes 1+, Acanthocytes (Spur) 1+, PT 14.5 H, INR 1.33 H, A PTT 32.3 H, Sodium 138, Potassium 5.8 H D, Chloride 103, Carbon Dioxide 7 L* D, Anion Gap 33.8 H, BUN 22 H, Creatinine 2.10 H D, Estimated Creat Clear 25, E stimated GFR 32 L, Est GFR ( Amer) 39 L D, Glucose 206 H, Uric Acid 8.7 H , Calcium 9.5, Phosphorus 6.4 H D, Magnesium 1.7, Total Bilirubin 0.9, AST 70 H D, ALT 31 D, Alkaline Phosphatase 79, Lactate Dehydrogenase 174 L, Troponin I 0.02, C-Reactive Protein 6.6 H D, NT-Pro-B Natriuret Pep 492 H, Total Protein 8.6 H, Albumin 4.5 D, Globulin 4.1 H, Albumin/Globulin Ratio 1.1, Lipase 1014 H , Procalcitonin 0.084, TSH 9.25 H D, Thyroxine (T4) 12.4 H, Acetone Level Small 02/19/25 11:49: SARS-CoV-2 (PCR) Not detected, Influenza A Untype (PCR) Not detected, Influenza Type B (PCR) Not detected 02/19/25 12:13: VBG pH 7.17 L, VBG pCO2 37.9, VBG pO2 61.4 H, VBG HCO3 13.5 L, V BG Total CO2 14.7 L, VBG O2 Saturation 85.6 H, VBG Base Excess -15.0 L, VBG Lactic Acid 8.4 H 02/19/25 13:30: Urine Color Yellow, Urine Appearance Clear, Urine pH 6.0, Ur Specific Pony 1.020, Urine Protein Trace, Urine Glucose (UA) 3+, Urine Ketones 1+, Urine Blood 2+ A, Urine Nitrate Negative, Urine Bilirubin 1+ A, Urine Urobilinogen 0.2, Ur Leukocyte Esterase 1+ A, Urine RBC 5-10, Urine WBC 3- 5, Ur Squamous Epith Cells Occasional, Urine Bacteria Trace, Urine Yeast 2+ 02/19/25 14:20: Fibrinogen 260, D-Dimer 0.63 H Assessment and Plan *Assessment and plan (1) Ileus, unspecified: Status: Acute Category: Medical Code(s): K56.7 - Ileus, unspecified (2) Enteritis: Status: Acute Category: Medical Code(s): K52.9 - Noninfective gastroenteritis and colitis, unspecified (3) Altered mental status: Status: Acute Category: Medical Code(s): R41.82 - Altered mental status, unspecified (4) Leukocytosis: Status: Acute Category: Medical Code(s): D72.829 - Elevated white blood cell count, unspecified (5) Elevated lipase: Status: Acute Category: Medical Code(s): R74.8 - Abnormal levels of other serum enzymes Plan 1. Dilated loops of small and large intestine with possible ileus. The CAT scan does not show any evidence of interstitial pancreatitis or fat stranding. I do feel that his elevated lipase level especially in the context of an ileus can indicate partial bowel obstruction. Given his abrupt change and altered mental status, I would recommend consultation with surgery as well. It is very difficult to get a good history. His abdominal exam presently is fairly benign but for any change in status, would recommend imaging to rule out obstruction or even vascular compromise to the bowels. I will discuss with hospitalist violet.
[2025-02-19 17:14] LABS: Reflex Lactic Add Lactic Reflex
--- NOTE | 2025-02-19 17:16 | PC.WOUNDNOTE ---
quarter size wound noted to L BKA 2cmx2.5cm
[2025-02-19 18:22] LABS: Alanine Aminotransferase 24 U/L (12-78); Albumin Level 4.1 g/dl (3.5-5.0); Albumin/Globulin Ratio 1.1 (1.1-1.8); Alkaline Phosphatase 77 U/L (38-126); Aspartate Amino Transferase 57 U/L (17-59); Bilirubin,Total 0.6 mg/dl (0.2-1.3); Blood Urea Nitrogen 24 mg/dl (9-20); Calcium 9.2 mg/dl (8.4-10.2); Carbon Dioxide 15 mmol/L (22.0-30.0); Chloride 102 mmol/L (98-107); Creatinine Clearance Estimated 24 mL/min (50-200); Estimated Glomerular Filt Rate 32 ml/min (>60); GFR (African American) 39 ML/MIN (>60); Globulin 3.6 g/dL (1.3-3.2); Glucose 97 mg/dl (74-100); Magnesium 1.8 mg/dl (1.6-2.3); Phosphorous 6.6 mg/dl (2.5-4.5); Sodium 137 mmol/L (136-145); Total Protein,Serum 7.7 g/dl (6.3-8.2)
[2025-02-19 18:26] LABS: Lactic Acid Follow Up (RFLX 1) 5.1 mmol/L (0.7-2.1)
[2025-02-19 18:33] LABS: Troponin I 0.03 ng/ml (0.00-0.034)
--- NOTE | 2025-02-19 18:51 | P.HP_ITS ---
History of Present Illness *Admission Date: 02/19/25 *History of present illness: Mr. Hilton is a 64-year-old gentleman [place] [facility] resident who is admitted today from the emergency department. It appears that the patient was just discharged yesterday and has had a lot of medication adjustments because of his bipolar disorder and depression. He was not having abdominal complaints according to discharge summary on 02/18. The patient Mayra presented to the emergency department from the intermediate today. The patient had significant leukocytosis and altered mental status. He presents with nausea and vomiting and difficulty with some appropriately answering questions. He is sluggish to respond and lethargic. On examination in the emergency department, ED physician (Mariana Marshall) notified me today that he had elevated pancreatic chemistries. CAT scan showed fluid-filled large and small bowel loops possibly related to ileus or enteritis. Abdominal ultrasound showed no gallstones or cholecystitis or CBD dilation. [facility] Disclaimer: The information contained in this section may have been updated after the patient was seen, as this information can be updated by other users. Medical History Falls Dry skin Edema of amputation stump of left lower extremity Pain of amputation stump of left lower extremity Hyperkalemia Lethargy Fecal impaction Chest pain Peripheral arterial disease Colon cancer screening Anemia HFrEF (heart failure with reduced ejection fraction) Visual disturbance Systolic heart failure Renal artery stenosis LV dysfunction COVID-19 Below-knee amputation of left lower extremity Diabetes mellitus with diabetic neuropathy Acute kidney injury Dehiscence of amputation stump Postprocedural (acute) (chronic) kidney failure Non-pressure chronic ulcer of unspecified part of right lower leg with unspecified severity Peptic ulcer, site unspecified, unspecified as acute or chronic, without hemorrhage or perforation Chronic or unspecified duodenal ulcer with hemorrhage Acute respiratory failure with hypoxia 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 Chronic osteomyelitis of left foot Overweight (BMI 25.0-29.9) Above knee amputation of right lower extremity Postoperative wound dehiscence Hyperlipidemia Hypertension Coronary artery disease Ischemic ulcer of left foot Peripheral arterial occlusive disease Onychodystrophy Surgical History History of right above knee amputation History of left below knee amputation History of colonoscopy Status post transmetatarsal amputation of left foot History of coronary artery bypass graft Social History (Updated 02/19/25 @ 15:22 by Marsha Ceja RN) Smoking Status: Unknown if ever smoked second hand exposure: No alcohol intake: never substance use type: denies use current occupational status: retired Travel in the last 8 weeks: None household members: other housing: intermediate current occupational exposures/hazards: No caffeine: No Have you lived/traveled outside US in past 30 days?: No Contact w/someone who lives/traveled outside US past 30 days?: No Exposure to someone with infectious disease in past 14 days?: No Do you have a fever (greater than 100.4 F or 38 C)?: No Have you tested positive for COVID-19: No Exposed to someone with COVID-19 in past 14 days?: No Do you have a sore throat?: No Do you have a cough?: No Do you have any weakness?: No Are you experiencing any nausea/vomitting?: Yes Do you have any diarrhea?: No Are you experiencing any unusual bleeding?: No Do you have any muscle aches/pain?: No Do you have any abdominal pain?: No Are you experiencing loss of taste or smell?: No Other Medical History Have you received the Flu Vaccine for this season: Yes Have you received the Pneumonia Vaccine: Yes Meds Home Medications and Allergies Home Medications ?Medication ?Instructions ?Recorded ?Confirmed ?Type atorvastatin 80 mg tablet 80 mg PO HS 12/05/19 02/19/25 History pantoprazole 40 mg tablet,delayed 40 mg PO DAILY 12/05/19 02/19/25 History release polyethylene glycol 3350 17 gram 17 g PO DAILYP PRN Constipation 12/05/19 02/19/25 History oral powder packet lactulose 10 gram/15 mL oral 30 ml PO DAILYP PRN Constipation 02/03/21 02/19/25 History solution acetaminophen 325 mg tablet 650 mg (2 x 325 mg) PO Q6HP PRN 04/02/21 02/19/25 Rx Mild To Moderate Pain docusate sodium 100 mg capsule 100 mg PO BIDP PRN Constipation 04/02/21 02/19/25 Rx metformin 1,000 mg tablet 1,000 mg PO BID #180 tabs 12/03/23 02/19/25 Rx multivitamin (One-A-Day Essential 1 tab PO DAILY 01/16/24 02/19/25 History tablet) rivaroxaban 2.5 mg tablet 2.5 mg PO BID Blood thinner 90 02/06/24 02/19/25 Rx days #180 tabs insulin human U-100 NPH-regulr 65 unit SQ DAILY 05/24/24 02/19/25 History 70-30 mix 100 unit/mL subcutaneous susp empagliflozin 25 mg tablet 25 mg PO DAILY #90 tabs 08/14/24 02/19/25 Rx (Jardiance) quetiapine 400 mg tablet 400 mg PO HS 08/29/24 02/19/25 History coQ10 (ubiquinol) 100 mg capsule 100 mg PO BID #180 caps 11/13/24 02/19/25 Rx (Qunol Kurtis CoQ10) dextromethorphan-guaifenesin 10 10 ml PO Q6HP PRN Congestion 11/13/24 02/19/25 History mg-100 mg/5 mL oral liquid (Robafen DM Cough) venlafaxine 150 mg 150 mg PO DAILY 01/22/25 02/19/25 History capsule,extended release 24 hr carvedilol 25 mg tablet (Coreg) 25 mg PO 0800,1700 02/09/25 02/19/25 History clonazepam 0.5 mg tablet 0.5 mg PO HS 02/09/25 02/19/25 History hydrocodone 5 mg-acetaminophen 325 1 tab PO BIDP PRN Severe Pain 02/09/25 02/19/25 History mg tablet (Scale Score 7-10) prazosin 1 mg capsule 3 mg PO HS 02/09/25 02/19/25 History trazodone 50 mg tablet 50 mg PO HS 02/09/25 02/19/25 History patiromer calcium sorbitex 8.4 8.4 g PO DAILY #30 ea 02/12/25 02/19/25 Rx gram oral powder packet (Veltassa) gabapentin 100 mg capsule 100 mg PO BID #60 caps 02/15/25 02/19/25 Rx insulin glargine 100 unit/mL (3 75 unit SQ HS 02/17/25 02/19/25 History mL) subcutaneous pen (Lantus Solostar U-100 Insulin) aspirin 81 mg chewable tablet 81 mg PO DAILY 02/19/25 02/19/25 History levothyroxine 50 mcg tablet 50 mcg PO DAILY 02/19/25 02/19/25 History (Synthroid) New Prescriptions to Start Prescriptions: Allergies Allergy/AdvReac Type Severity Reaction Status Date / Time No Known Allergies Allergy Verified 02/19/25 12:26 Exam Data for Last 24 hours Vital signs and Labs for Last 24 Hours: Temp Pulse Resp BP Pulse Ox O2 Del Method 98.3 F 69 11 L 116/76 98 Room Air 02/19/25 15:43 02/19/25 15:56 02/19/25 15:56 02/19/25 15:56 02/19/25 16:05 02/19/25 18:36 Laboratory Results - last 24 hr 02/19/25 11:38: WBC 29.4 H* D, RBC 3.55 L, Hgb 10.6 L, Hct 34.6 L, MCV 97.5 H, MCH 29.9, MCHC 30.6 L, RDW 14.4, Plt Count 358, MPV 10.5 H, Neut % (Auto) 28.2 L , Lymph % (Auto) 65.7 H, [place] % (Auto) 5.2, Eos % (Auto) 0.3, Baso % (Auto) 0.3, Neut # (Auto) 8.3 H, Lymph # (Auto) 19.3 H, [place] # (Auto) 1.5 H, Eos # (Auto) 0.1, Baso # (Auto) 0.1, Total Counted 100, Neutrophils % (Manual) 37 L, Lymphocytes % (Manual) 60 H, Monocytes % (Manual) 3, Platelet Estimate Normal, Anisocytosis 1+, Ovalocytes 1+, Acanthocytes (Spur) 1+, PT 14.5 H, INR 1.33 H, APTT 32.3 H, Sodium 138, Potassium 5.8 H D, Chloride 103, Carbon Dioxide 7 L* D, Anion Gap 33.8 H, BUN 22 H, Creatinine 2.10 H D, Estimated Creat Clear 25, Estimated GFR 32 L, Est GFR ( Amer) 39 L D, Glucose 206 H, Uric Acid 8.7 H, Calcium 9.5, Phosphorus 6.4 H D, Magnesium 1.7, Total Bilirubin 0.9, AST 70 H D, ALT 31 D, Alkaline Phosphatase 79, Lactate Dehydrogenase 174 L, Troponin I 0.02, C-Reactive Protein 6.6 H D, NT-Pro-B Natriuret Pep 492 H, Total Protein 8.6 H, Albumin 4.5 D, Globulin 4.1 H, Albumin/Globulin Ratio 1.1, Lipase 1014 H , Procalcitonin 0.084, TSH 9.25 H D, Thyroxine (T4) 12.4 H, Acetone Level Small 02/19/25 11:49: SARS-CoV-2 (PCR) Not detected, Influenza A Untype (PCR) Not detected, Influenza Type B (PCR) Not detected 02/19/25 12:13: VBG pH 7.17 L, VBG pCO2 37.9, VBG pO2 61.4 H, VBG HCO3 13.5 L, VBG Total CO2 14.7 L, VBG O2 Saturation 85.6 H, VBG Base Excess -15.0 L, VBG Lactic Acid 8.4 H 02/19/25 13:30: Urine Color Yellow, Urine Appearance Clear, Urine pH 6.0, Ur Specific [place] 1.020, Urine Protein Trace, Urine Glucose (UA) 3+, Urine Ketones 1+, Urine Blood 2+ A, Urine Nitrate Negative, Urine Bilirubin 1+ A, Urine Urobilinogen 0.2, Ur Leukocyte Esterase 1+ A, Urine RBC 5-10, Urine WBC 3- 5, Ur Squamous Epith Cells Occasional, Urine Bacteria Trace, Urine Yeast 2+ 02/19/25 14:20: Fibrinogen 260, D-Dimer 0.63 H 02/19/25 17:55: Sodium 137, Potassium 6.0 H, Chloride 102, Carbon Dioxide 15 L, Anion Gap 26.0 H, BUN 24 H, Creatinine 2.10 H, Estimated Creat Clear 24, Estimated GFR 32 L, Est GFR ( Amer) 39 L, Glucose 97 D, Lactate 5.1 H, Calcium 9.2, Phosphorus 6.6 H, Magnesium 1.8, Total Bilirubin 0.6, AST 57, ALT 24, Alkaline Phosphatase 77, Troponin I 0.03, Total Protein 7.7, Albumin 4.1, Globulin 3.6 H, Albumin/Globulin Ratio 1.1 I & O for Last 24 hours: Intake & Output 02/16/25 02/17/25 02/18/25 02/19/25 23:59 23:59 23:59 23:59 Intake Total 1000 / 1000 Balance 1000 / 1000 Weight 98.089 kg Constitutional Constitutional: no acute distress, obese and chronically ill appearing *Routine HEENT Exam Head: Present normocephalic Eye: Present EOMI and PERRL ENT: Present mucous membranes moist *Routine Neck Exam Neck: Present supple; Absent lymphadenopathy *Routine Respiratory Exam Respiratory: Present CTA bilaterally *Routine Cardiovascular Exam Cardiovascular: Present RRR *Routine Abdominal Exam Abdominal: Present soft and normoactive bowel sounds; Absent tenderness *Routine Rectal Exam Rectal:: deferred *Routine Genitalia Exam Genitalia:: deferred *Routine Extremities Exam Extremities: Absent cyanosis, clubbing or edema Comments: Left BKA, right AKA. *Routine Skin Exam Skin: Present warm; Absent rash *Routine Neurological Exam Neurological: Present alert and oriented X3 Assessment and Plan *Assessment and plan (1) Leukocytosis: Status: Acute Category: Medical Code(s): D72.829 - Elevated white blood cell count, unspecified Plan Easton Hilton is a 64-year-old male with a medical history significant for CAD/CABG, HFpEF, hypertension, hyperlipidemia, type 2 diabetes, left BKA, right AKA, mood disorder who presents with intractable nausea/vomiting and was admitted for FAVIO, persistent leukocytosis, high anion metabolic lactic acidosis, hyperkalemia, hypophosphatemia, hyperuricemia. These findings were concerning for cancer. #Leukocytosis, suspect malignancy #UTI #Enteritis #Possible ileus versus partial SBO ? WBC initially 29.4, lymphocytic predominant. Patient has had 2 recent admissions over the past 2 weeks with similar lymphocytic predominant leukocytosis. WBC worsened since last 2 admissions. ? Patient has new fluid-filled bowel loops concerning for enteritis versus ileus. However, patient is having bowel movements making enteritis more likely. ? He does have hyperkalemia 6.0, hyperuricemia 8.7, hyperphosphatemia 6.6 with leukocytosis highly concerning for leukemia/lymphoma. ? UA also grossly abnormal, though previous urine cultures have been normal. ? Follow-up peripheral smear, blood culture, urine culture. ? Follow-up diarrhea panel. ? Vancomycin, cefepime day 1 pending cultures. ? Follow-up CBC, CMP, phosphate, uric acid in the morning. If uric acid continues to uptrend, consider allopurinol. #Elevated lipase ? Lipase 1014 on admission. Though seems to be incidental finding in the setting of severe illness as patient has no abdominal pain. ? GI consulted, seems to agree that low concern for acute pancreatitis. No CT evidence of pancreatitis as well. Unremarkable RUQ ultrasound. #FAVIO on CKD stage III #Lactic acidosis #Hyperkalemia #Hyperphosphatemia #Hyperuricemia ? Creatinine 2.1, baseline 1.5. Given 2 L IV fluids bolus in the setting of nausea/vomiting/diarrhea. ? Initial lactate 8.2, improving to 5.1 with fluids. Low suspicion for mesenteric ischemia as patient has no abdominal pain. ? Continue LR at 125 mL/h. Follow-up CMP in the morning. #Type 2 diabetes #Left BKA, right AKA ? A1c 6.1. ? Stumps stable, does have left stump abrasion but no active signs of infection. ? Hold home Jardiance, metformin due to suspected UTI and lactic acidosis. #History of CABG, CAD ? Continue aspirin, statin. #Hypothyroidism ? Continue home levothyroxine 50 mcg. #HFimpEF #Hypertension ? Stable. Hold home Entresto, spironolactone due to FAVIO, hyperkalemia. Hold home carvedilol due to GI losses. #Mood disorder ? Continue home venlafaxine, quetiapine, prazosin. QTc 450. Full code DVT prophylaxis: Home Xarelto
[2025-02-19] MEDS: CALCIUM GLUC IN NACL, ISO-OSM 1 GM/50 ML BAG IV (19:03)
[2025-02-19] MEDS: LACTATED RINGERS 1000ML 1,000 ML 125 ML IV (19:04)
[2025-02-19] MEDS: LOKELMA 5GM PACKET 10 GM PO ×2 (19:04→21:00)
[2025-02-19] MEDS: RINGERS SOLUTION,LACTATED 500 ML IV (19:04)
[2025-02-19 19:16] LABS: Basophils % 0.2 % (0.1-2.0); Eosinophils # 0.2 K/mm3 (0.0-0.4); Eosinophils % 0.8 % (0.1-12.0); Hematocrit 32.3 % (42.0-52.0); Hemoglobin 9.8 g/dL (14.1-18.0); Lymphocytes # 13.3 K/mm3 (0.7-4.5); Lymphocytes % 65.1 % (10-50); Mean Corpuscular HGB Conc 30.3 g/dL (31.8-35.4); Mean Corpuscular Hemoglobin 29.7 pg (27.0-31.2); Mean Corpuscular Volume 97.9 fl (80-94); Mean Platelet Volume 11.6 fl (7.4-10.4); Monocytes # 1.1 K/mm3 (0.1-1.0); Monocytes % 5.2 % (1.7-9.3); Neutrophils # 5.8 K/mm3 (1.8-7.8); Neutrophils % 28.5 % (37.0-80.0); Platelet Count 259 K/mm3 (142-424); Red Cell Distribution Width 14.3 % (11.5-17.5)
[2025-02-19 19:24] LABS: White Blood Count 20.4 K/mm3 (4.8-10.8)
[2025-02-19] MEDS: SODIUM BICARB 8.4% 50ML SYRINGE (CRASH CART) 50 MEQ IV (19:33)
[2025-02-19 20:00] LABS: Reflex Lactic (2 hrs) Add Lactic Reflex
--- NOTE | 2025-02-19 20:59 | PC.NURSE ---
[facility] was paged at this time to verify the safe compatibility of infusing Cefepime with the current Lactated Ringers infusion. I spoke with Alfredito; he stated that they were compatible.
[2025-02-19] MEDS: clonazePAM 0.5MG TABLET 0.5 MG PO (21:00)
[2025-02-19] MEDS: CEFEPIME HCL 1 GM in 0.9 % SODIUM CHLORIDE 50 ML IV (21:00)
[2025-02-19] MEDS: GABAPENTIN 100MG CAPSULE 100 MG PO (21:00)
[2025-02-19] MEDS: TRAZODONE 50MG TABLET 50 MG PO (21:01)
[2025-02-19] MEDS: QUETIAPINE 400 MG 400 EACH PO (21:11)
[2025-02-19] MEDS: RIVAROXABAN 2.5MG TABLET 2.5 MG PO (21:12)
[2025-02-19 21:48] LABS: Troponin I 0.03 ng/ml (0.00-0.034)
[2025-02-19 21:50] LABS: Lactic Acid Follow up (RFLX 2) 2.7 mmol/L (0.7-2.1)
[2025-02-20] VITALS (7 sets, daily range): BP systolic 119–164; BP diastolic 55–87; PULSE 70–90; RESP 16–20; TEMP 36.4–37.3; O2SAT 93–98; BMI 43.4
[2025-02-20 00:25] LABS: Potassium 5.7 mmoL/L (3.5-5.1)
[2025-02-20 00:47] LABS: Adenovirus F 40/41, stool Not Detected (NotDetected); Astrovirus Not Detected (NotDetected); Campylobacter Not Detected (NotDetected); Clostridium Difficile A/B, PCR Not Detected (NotDetected); Cryptosporidium Not Detected (NotDetected); Cyclospora Cayetanesis Not Detected (NotDetected); Entamoeba histolytica Not Detected (NotDetected); Enteroaggregative E coli Not Detected (NotDetected); Enteropathogenic E coli Not Detected (NotDetected); Enterotoxigenic E coli Not Detected (NotDetected); Giardia lamblia Not Detected (NotDetected); Norovirus Not Detected (NotDetected); Plesimonas Shigalloides, PCR Not Detected (NotDetected); Rotavirus A Not Detected (NotDetected); Salmonella, PCR Not Detected (NotDetected); Sapovirus Not Detected (NotDetected); Shiga-like toxin E coli Not Detected (NotDetected); Shigella Enterovasive E coli Not Detected (NotDetected); Vibrio Cholerae Not Detected (NotDetected); Vibrio, PCR Not Detected (NotDetected); Yersinia Entercolitica, PCR Not Detected (NotDetected)
[2025-02-20] MEDS: LACTATED RINGERS 1000ML 1,000 ML 125 ML IV (03:20)
--- NOTE | 2025-02-20 04:35 | PC.NURSE ---
Patient is alert to himself and place (aware that he is in the hospital, was not able to recite the name). He has also expressed subtle awareness of his situation; however, the patient's orientation status was noticed to wax and wane at times. Patient is overall pleasant, soft-spoken, and quiet-natured. He was observed to have eyes closed, respirations even/unlabored on room air, and no apparent distress throughout the majority of the night. He has had multiple loose, incontinent, malodorous bowel movements this shift via brief; linen changes, partial baths, and catheter care was also performed by staff in addition to the soiled brief changes. He was given one full bath this shift as well. Goss catheter remains intact; urine output emptied and documented accordingly. Urine appearance has been clear in transparency and yellow in color. Stool sample for diarrhea panel was sent off this shift; results came back negative. Latest potassium 5.7, resulted at 21:19 this shift, electrolyte trends ongoing. He self-turns in bed with minimal assistance. Right above-knee and left below-knee amputations were observed. The patient has a quarter-sized open abrasion on his left knee; no bleeding noted. Scarring was noted to the sternum and lower buttocks. A small, yellow bruise was observed on his left upper chest as well. The patient has not had any complaints of pain this shift. Nausea that he was experiencing upon arrival to the hospital during the previous shift was reported as subsiding upon assessment during this shift. He consumed a couple cups of ice cream, orange juice, and fresh ice water this shift, tolerating the full liquid diet. Scheduled medications were administered as appropriately per JAN. Lactated Ringers continue to infuse at 125 mL/hr. Auscultation of his heart, lungs, and bowels were within normal findings. Blood pressures elevated; other vital signs stable. At this time, the patient is resting in bed without any further complaints. No acute changes noted thus far. Bed alarm on. Call light within reach.
[2025-02-20 06:34] LABS: Albumin Level 3.5 g/dl (3.5-5.0); Chloride 106 mmol/L (98-107); Potassium 4.4 mmoL/L (3.5-5.1); Sodium 139 mmol/L (136-145)
[2025-02-20 06:37] LABS: Alanine Aminotransferase 13 U/L (12-78); Albumin/Globulin Ratio 1.1 (1.1-1.8); Alkaline Phosphatase 73 U/L (38-126); Anion Gap 17.4 mEq/L (5-15); Aspartate Amino Transferase 38 U/L (17-59); Bilirubin,Total 0.4 mg/dl (0.2-1.3); Blood Urea Nitrogen 24 mg/dl (9-20); Carbon Dioxide 20 mmol/L (22.0-30.0); Creatinine Clearance Estimated 30 mL/min (50-200); Estimated Glomerular Filt Rate 41 ml/min (>60); GFR (African American) 50 ML/MIN (>60); Globulin 3.1 g/dL (1.3-3.2); Total Protein,Serum 6.6 g/dl (6.3-8.2)
[2025-02-20 06:38] LABS: Calcium 9.2 mg/dl (8.4-10.2); Glucose 71 mg/dl (74-100); Magnesium 1.6 mg/dl (1.6-2.3)
--- NOTE | 2025-02-20 07:17 | P.PN_ITS ---
Subjective *Date: 02/20/25 *Time: 07:17 Interval history: Patient more alert today. He complains of no abdominal pain. He is having bowel movements. They have been loose. He reports some bloating but no marked distention. Still a little somnolent. Exam Data for Last 24 hours Vital signs and Labs for Last 24 Hours: Temp Pulse Resp BP Pulse Ox O2 Del Method 99.2 F 82 17 150/63 H 96 Room Air 02/20/25 04:00 02/20/25 04:00 02/20/25 04:00 02/20/25 04:00 02/20/25 04:00 02/20/25 06:35 Laboratory Results - last 24 hr 02/19/25 11:38: WBC 29.4 H* D, RBC 3.55 L, Hgb 10.6 L, Hct 34.6 L, MCV 97.5 H, MCH 29.9, MCHC 30.6 L, RDW 14.4, Plt Count 358, MPV 10.5 H, Neut % (Auto) 28.2 L , Lymph % (Auto) 65.7 H, [place] % (Auto) 5.2, Eos % (Auto) 0.3, Baso % (Auto) 0.3, Neut # (Auto) 8.3 H, Lymph # (Auto) 19.3 H, [place] # (Auto) 1.5 H, Eos # (Auto) 0.1, Baso # (Auto) 0.1, Total Counted 100, Neutrophils % (Manual) 37 L, Lymphocytes % (Manual) 60 H, Monocytes % (Manual) 3, Platelet Estimate Normal, Anisocytosis 1+, Ovalocytes 1+, Acanthocytes (Spur) 1+, PT 14.5 H, INR 1.33 H, APTT 32.3 H, Sodium 138, Potassium 5.8 H D, Chloride 103, Carbon Dioxide 7 L* D, Anion Gap 33.8 H, BUN 22 H, Creatinine 2.10 H D, Estimated Creat Clear 25, Estimated GFR 32 L, Est GFR ( Amer) 39 L D, Glucose 206 H, Uric Acid 8.7 H, Calcium 9.5, Phosphorus 6.4 H D, Magnesium 1.7, Total Bilirubin 0.9, AST 70 H D, ALT 31 D, Alkaline Phosphatase 79, Lactate Dehydrogenase 174 L, Troponin I 0.02, C-Reactive Protein 6.6 H D, NT-Pro-B Natriuret Pep 492 H, Total Protein 8.6 H, Albumin 4.5 D, Globulin 4.1 H, Albumin/Globulin Ratio 1.1, Lipase 1014 H , Procalcitonin 0.084, TSH 9.25 H D, Thyroxine (T4) 12.4 H, Acetone Level Small 02/19/25 11:49: SARS-CoV-2 (PCR) Not detected, Influenza A Untype (PCR) Not detected, Influenza Type B (PCR) Not detected 02/19/25 12:13: VBG pH 7.17 L, VBG pCO2 37.9, VBG pO2 61.4 H, VBG HCO3 13.5 L, VBG Total CO2 14.7 L, VBG O2 Saturation 85.6 H, VBG Base Excess -15.0 L, VBG Lactic Acid 8.4 H 02/19/25 13:30: Urine Color Yellow, Urine Appearance Clear, Urine pH 6.0, Ur Specific [place] 1.020, Urine Protein Trace, Urine Glucose (UA) 3+, Urine Ketones 1+, Urine Blood 2+ A, Urine Nitrate Negative, Urine Bilirubin 1+ A, Urine Urobilinogen 0.2, Ur Leukocyte Esterase 1+ A, Urine RBC 5-10, Urine WBC 3- 5, Ur Squamous Epith Cells Occasional, Urine Bacteria Trace, Urine Yeast 2+ 02/19/25 14:20: Fibrinogen 260, D-Dimer 0.63 H 02/19/25 17:55: WBC 20.4 H* D, RBC 3.30 L, Hgb 9.8 L, Hct 32.3 L, MCV 97.9 H, MCH 29.7, MCHC 30.3 L, RDW 14.3, Plt Count 259 D, MPV 11.6 H, Neut % (Auto) 28.5 L, Lymph % (Auto) 65.1 H, [place] % (Auto) 5.2, Eos % (Auto) 0.8, Baso % (Auto) 0.2, Neut # (Auto) 5.8, Lymph # (Auto) 13.3 H, [place] # (Auto) 1.1 H, Eos # (Auto) 0.2, Baso # (Auto) 0.0, Sodium 137, Potassium 6.0 H, Chloride 102, Carbon Dioxide 15 L, Anion Gap 26.0 H, BUN 24 H, Creatinine 2.10 H, Estimated Creat Clear 24, Estimated GFR 32 L, Est GFR ( Amer) 39 L, Glucose 97 D, Lactate 5.1 H, Calcium 9.2, Phosphorus 6.6 H, Magnesium 1.8, Total Bilirubin 0.6, AST 57, ALT 24, Alkaline Phosphatase 77, Troponin I 0.03, Total Protein 7.7, Albumin 4.1, Globulin 3.6 H, Albumin/Globulin Ratio 1.1 02/19/25 21:19: Potassium 5.7 H, Lactate 2.7 H, Troponin I 0.03 02/19/25 : Stl Aeromonas (PCR) Not detected, Stl C. cayetanensis PCR Not detected, Stool Rotavirus (PCR) Not detected, Stl Adenov F 40/41 PCR Not detected, Stool Astrovirus (PCR) Not detected, Stool Campylobacter PCR Not detected, Stl C.difficile Tox PCR Not detected, Stool Cryptosporidium PCR Not detected, Stl E.coli Shiga Tox PCR Not detected, Stool E coli O157 PCR Not detected, Stl Enterotoxigenic E PCR Not detected, Stool EPEC (PCR) Not detected, Stool EAEC (PCR) Not detected, Stl E. histolytica PCR Not detected, Stool Giardia Lamblia PCR Not detected, Stool Salmonella PCR Not detected, Stool Sapovirus (PCR) Not detected, Stl P. shigelloides PCR Not detected, Stl Shigella/EIEC PCR Not detected, St Y.enterocolitica PCR Not detected, Stool Vibrio (PCR) Not detected, Stl Vibrio cholerae PCR Not detected, Stl Norovirus GI/GII PCR Not detected 02/20/25 05:34: Sodium 139, Potassium 4.4 D, Chloride 106, Carbon Dioxide 20 L, Anion Gap 17.4 H, BUN 24 H, Creatinine 1.70 H, Estimated Creat Clear 30, Estimated GFR 41 L, Est GFR ( Amer) 50 L D, Glucose 71 L D, Calcium 9.2, Magnesium 1.6 D, Total Bilirubin 0.4, AST 38 D, ALT 13 D, Alkaline Phosphatase 73, Total Protein 6.6, Albumin 3.5 D, Globulin 3.1, Albumin/Globulin Ratio 1.1 I & O for Last 24 hours: Intake & Output 02/17/25 02/18/25 02/19/25 02/20/25 23:59 23:59 23:59 23:59 Intake Total 1000 / 1963 963 / 963 Output Total 900 / 900 225 / 225 Balance 100 / 1063 738 / 738 Weight 216 lb 4 oz 221 lb 1.6 oz *Routine Abdominal Exam Abdominal: Present soft Comments: Slightly hypoactive bowel sounds with mild distention, no significant tenderness Assessment and Plan *Assessment and plan (1) Ileus, unspecified: Status: Acute Category: Medical Code(s): K56.7 - Ileus, unspecified (2) Enteritis: Status: Acute Category: Medical Code(s): K52.9 - Noninfective gastroenteritis and colitis, unspecified (3) Elevated lipase: Status: Acute Category: Medical Code(s): R74.8 - Abnormal levels of other serum enzymes Plan 1. Ileus/enteritis. The patient's PCR panel yesterday was negative. The patient appears to be clinically improved. Did speak with Edgar Bean MD yesterday in regard to leukocytosis. This has been primarily lymphocytosis and peripheral smear will be performed. The patient had a similar episode of abdominal distention/ileus pattern recently. Patient does have some metabolic derangements and elevated creatinine and elevated lactate. Liver chemistries are normal. I do suspect elevated lipase is related to ileus rather than pancreatitis especially with no imaging evidence of interstitial pancreatitis or fat stranding. Will follow. We did discuss possibly mesenteric angiography but patient has had adequate prior arterial imaging of the mesenteric system. Prior CAT scan in January 2025 showed possible pneumatosis in the right colon.
[2025-02-20 07:41] LABS: Basophils % 0.2 % (0.1-2.0); Eosinophils # 0.1 K/mm3 (0.0-0.4); Eosinophils % 0.4 % (0.1-12.0); Hematocrit 28.4 % (42.0-52.0); Lymphocytes # 13.9 K/mm3 (0.7-4.5); Lymphocytes % 74.1 % (10-50); Mean Corpuscular HGB Conc 31.7 g/dL (31.8-35.4); Mean Corpuscular Hemoglobin 30.2 pg (27.0-31.2); Mean Corpuscular Volume 95.3 fl (80-94); Mean Platelet Volume 11.2 fl (7.4-10.4); Monocytes # 1.2 K/mm3 (0.1-1.0); Monocytes % 6.3 % (1.7-9.3); Neutrophils # 3.5 K/mm3 (1.8-7.8); Neutrophils % 18.8 % (37.0-80.0); Platelet Count 273 K/mm3 (142-424); Red Blood Count 2.98 M/mm3 (4.60-6.20); Red Cell Distribution Width 14.3 % (11.5-17.5); White Blood Count 18.8 K/mm3 (4.8-10.8)
[2025-02-20 07:44] LABS: MANUAL DIFFERENTIAL MANUAL DIFFERENTIAL (MANUAL DIFF)
[2025-02-20] MEDS: MAGNESIUM SULFATE IN WATER 2 GM/50 ML PIGGYBACK IV ×2 (08:18→09:13)
[2025-02-20] MEDS: RIVAROXABAN 2.5MG TABLET 2.5 MG PO ×2 (08:19→20:51)
[2025-02-20] MEDS: GABAPENTIN 100MG CAPSULE 100 MG PO ×2 (08:19→20:51)
[2025-02-20] MEDS: VENLAFAXINE XR 75MG CAPSULE 150 MG PO (08:19)
[2025-02-20] MEDS: ASPIRIN 81MG CHEWABLE TABLET 81 MG PO (08:19)
[2025-02-20] MEDS: LEVOTHYROXINE 50MCG (0.05MG) TAB 50 MCG PO (08:19)
[2025-02-20] MEDS: HYDROCODONE/APAP 5/325 MG TABLET 1 TAB PO (08:22)
--- NOTE | 2025-02-20 09:05 | PC.NURSE ---
called pharmacy to check on cefepime since there isn't any in [facility] and they stated they would bring one over.
[2025-02-20] MEDS: CEFEPIME HCL 1 GM in 0.9 % SODIUM CHLORIDE 50 ML IV ×2 (09:13→20:51)
[2025-02-20 09:42] LABS: Acanthocytes 1+; Lymphocytes % 44 % (10-50); Monocytes % 11 % (2-9); Neutrophils % 45 % (42-76); Nucleated Red Blood Cells 1; Ovalocytes 1+; Total Cells Counted 100
[2025-02-20 09:43] LABS: Hypochromasia 1+; Platelet Estimate Normal
[2025-02-20 12:52] LABS: Uric Acid 8.2 mg/dl (3.5-8.5)
--- NOTE | 2025-02-20 12:53 | HMH.PTWOUND ---
Rehab Inpt Wound Evaluation Rehab IP Wound Evaluation Start: 02/19/25 16:14 Freq: ONCE Status: Active Protocol: Document 02/20/25 09:25 CLAY (Rec: 02/20/25 12:52 CLAY [id number]) Rehab PT Wound Assessment Subjective [facility] 64[facility]. It appears that the patient was just discharged yesterday and has had a lot of medication adjustments because of his bipolar disorder and depression. He was not having abdominal complaints according to discharge summary on 02/18. The [facility]. The patient had significant leukocytosis and altered mental status. He presents with nausea and vomiting and difficulty with some appropriately answering questions. He is sluggish to respond and lethargic. On examination in the emergency department, ED physician ( Mariana Marshall) notified me today that he had elevated pancreatic chemistries. CAT scan showed fluid-filled large and small bowel loops possibly related to ileus or enteritis. Abdominal ultrasound showed no gallstones or cholecystitis or CBD dilation. Presented with L distal BKA wound upon admission, no known injury reported. Wound Left Distal Leg Wound Type Abrasion Is This a Chronic Wound No Wound Length (cm) 1.5 Wound Width (cm) 2.0 Wound Depth (cm) 0.1 Wound Bed Appearance [place] [facility] Description Well Defined Dressing Change Patient Tolerance Tolerated Well Plan/Recommendation Comment Wound is currently dry and healing appropriately. No need for debridement or further PT wound care. [facility] staff caring for wound appropriately at this time. Eval Complexity Eval Charge Codes 81432 - High Complexity PHYSICIAN CERTIFICATION: I certify the specified therapy services for Easton Hilton are required, authorized, and reviewed every 30 days.
[2025-02-20] MEDS: VANCOMYCIN/WATER FOR INJ (PEG) 1.5 GM/300 ML PIGGYBACK IV (13:39)
--- NOTE | 2025-02-20 13:42 | SW/DCPLANNER ---
Addendum entered by Tereza Nayak 02/21/25 14:46: Spoke with someone from [facility] regarding patients belongings at [place] and they have someone who is going to get patients belongings. I have phoned patients family who lives in [place] to let them know. Robert Luo Addendum entered by Tereza Nayak 02/21/25 10:13: Spoke with [facility] facility and they are able to take patient. Patient is medically ready to DC today. Robert Luo Original Note: Dr Edgar Bean spoke with patient and stated that he didnt have a choice or preference where we sent his information to for placement. I sent patients information to [facility], [place], [facility] in [facility]. Will update once i hear back if the facilities has a male bed available. Robert Luo
--- NOTE | 2025-02-20 16:34 | P.PN_ITS ---
Subjective *Date: 02/20/25 *Time: 16:34 Interval history: Patient feeling better today, tolerating p.o. intake and having bowel movements. Peripheral smear reveals mature lymphoproliferative disorder, follow-up with flow cytometry. Highly suspicious for malignancy. Follow-up urine culture, continue cefepime for now. Exam Data for Last 24 hours Vital signs and Labs for Last 24 Hours: Temp Pulse Resp BP Pulse Ox O2 Del Method 97.5 F L 81 17 119/57 L 96 Room Air 02/20/25 12:00 02/20/25 12:00 02/20/25 12:00 02/20/25 12:00 02/20/25 12:00 02/20/25 15:06 Laboratory Results - last 24 hr 02/19/25 17:55: WBC 20.4 H* D, RBC 3.30 L, Hgb 9.8 L, Hct 32.3 L, MCV 97.9 H, MCH 29.7, MCHC 30.3 L, RDW 14.3, Plt Count 259 D, MPV 11.6 H, Neut % (Auto) 28.5 L, Lymph % (Auto) 65.1 H, [place] % (Auto) 5.2, Eos % (Auto) 0.8, Baso % (Auto) 0.2, Neut # (Auto) 5.8, Lymph # (Auto) 13.3 H, [place] # (Auto) 1.1 H, Eos # (Auto) 0.2, Baso # (Auto) 0.0, Sodium 137, Potassium 6.0 H, Chloride 102, Carbon Dioxide 15 L, Anion Gap 26.0 H, BUN 24 H, Creatinine 2.10 H, Estimated Creat Clear 24, Estimated GFR 32 L, Est GFR ( Amer) 39 L, Glucose 97 D, Lactate 5.1 H, Calcium 9.2, Phosphorus 6.6 H, Magnesium 1.8, Total Bilirubin 0.6, AST 57, ALT 24, Alkaline Phosphatase 77, Troponin I 0.03, Total Protein 7.7, Albumin 4.1, Globulin 3.6 H, Albumin/Globulin Ratio 1.1 02/19/25 21:19: Potassium 5.7 H, Lactate 2.7 H, Troponin I 0.03 02/19/25 : Stl Aeromonas (PCR) Not detected, Stl C. cayetanensis PCR Not detec karli, Stool Rotavirus (PCR) Not detected, Stl Adenov F 40/41 PCR Not detected, Stool Astrovirus (PCR) Not detected, Stool Campylobacter PCR Not detected, Stl C.difficile Tox PCR Not detected, Stool Cryptosporidium PCR Not detected, Stl E.coli Shiga Tox PCR Not detected, Stool E coli O157 PCR Not detected, Stl Enterotoxigenic E PCR Not detected, Stool EPEC (PCR) Not detected, Stool EAEC (PCR) Not detected, Stl E. histolytica PCR Not detected, Stool Giardia Lamblia PCR Not detected, Stool Salmonella PCR Not detected, Stool Sapovirus (PCR) Not detected, Stl P. shigelloides PCR Not detected, Stl Shigella/EIEC PCR Not detected, St Y.enterocolitica PCR Not detected, Stool Vibrio (PCR) Not detected, Stl Vibrio cholerae PCR Not detected, Stl Norovirus GI/GII PCR Not detected 02/20/25 05:34: WBC 18.8 H, RBC 2.98 L, Hgb 9.0 L, Hct 28.4 L, MCV 95.3 H, MCH 30.2, MCHC 31.7 L, RDW 14.3, Plt Count 273, MPV 11.2 H, Neut % (Auto) 18.8 L, Lymph % (Auto) 74.1 H, [place] % (Auto) 6.3, Eos % (Auto) 0.4, Baso % (Auto) 0.2, Neut # (Auto) 3.5, Lymph # (Auto) 13.9 H, [place] # (Auto) 1.2 H, Eos # (Auto) 0.1, Baso # (Auto) 0.0, Total Counted 100, Neutrophils % (Manual) 45, Lymphocytes % (Manual) 44, Monocytes % (Manual) 11 H, Nucleated RBCs 1, Platelet Estimate Normal, Hypochromasia 1+, Ovalocytes 1+, Acanthocytes (Spur) 1+, Sodium 139, Potassium 4.4 D, Chloride 106, Carbon Dioxide 20 L, Anion Gap 17.4 H, BUN 24 H, Creatinine 1.70 H, Estimated Creat Clear 30, Estimated GFR 41 L, Est GFR ( Amer) 50 L D, Glucose 71 L D, Uric Acid 8.2, Calcium 9.2, Magnesium 1.6 D, Total Bilirubin 0.4, AST 38 D, ALT 13 D, Alkaline Phosphatase 73, Total Protein 6.6, Albumin 3.5 D, Globulin 3.1, Albumin/Globulin Ratio 1.1 I & O for Last 24 hours: Intake & Output 02/17/25 02/18/25 02/19/25 02/20/25 23:59 23:59 23:59 23:59 Intake Total 1000 / 1963 1907 / 1907 Output Total 900 / 900 225 / 225 Balance 100 / 1063 1682 / 1682 Weight 98.089 kg 100.289 kg Microbiology Reports for the Last 24 Hours: Microbiology 02/19/25 13:21 Blood Blood Culture - Preliminary NO GROWTH AFTER 24 HOURS 02/19/25 12:07 Blood Blood Culture - Preliminary NO GROWTH AFTER 24 HOURS Constitutional Constitutional: no acute distress *Routine HEENT Exam Head: Present normocephalic Eye: Present EOMI and PERRL ENT: Present mucous membranes moist *Routine Neck Exam Neck: Present supple; Absent lymphadenopathy *Routine Respiratory Exam Respiratory: Present CTA bilaterally *Routine Cardiovascular Exam Cardiovascular: Present RRR *Routine Abdominal Exam Abdominal: Present soft and normoactive bowel sounds; Absent tenderness *Routine Extremities Exam Extremities: Absent cyanosis, clubbing or edema Comments: Left BKA, right AKA. *Routine Skin Exam Skin: Present warm; Absent rash *Routine Neurological Exam Neurological: Present alert and oriented X3 Assessment and Plan *Assessment and plan (1) Leukocytosis: Status: Acute Category: Medical Code(s): D72.829 - Elevated white blood cell count, unspecified Plan Easton Hilton is a 64-year-old male with a medical history significant for CAD/CABG, HFpEF, hypertension, hyperlipidemia, type 2 diabetes, left BKA, right AKA, mood disorder who presents with intractable nausea/vomiting and was admitted for FAVIO, persistent leukocytosis, high anion metabolic lactic acidosis, hyperkalemia, hypophosphatemia, hyperuricemia. These findings were concerning for cancer. #Leukocytosis, suspect malignancy #UTI #Enteritis #Suspected ileus, improving ? WBC initially 29.4, lymphocytic predominant. Patient has had 2 recent admissions over the past 2 weeks with similar lymphocytic predominant leukocytosis. WBC worsened since last 2 admissions. ? Patient has new fluid-filled bowel loops concerning for enteritis versus ileus. However, patient is having bowel movements making enteritis more likely. ? He did have hyperkalemia 6.0, hyperuricemia 8.7, hyperphosphatemia 6.6 with leukocytosis highly concerning for leukemia/lymphoma. ? UA also grossly abnormal, though previous urine cultures have been normal. ? Peripheral smear showing mature lymphoproliferative disorder, and in this setting highly suspicious for leukemia/lymphoma. No blast crisis at this time. Will follow-up with flow cytometry. ? WBC improved to 18.8 today. ? Follow-up flow cytometry. ? Follow-up urine culture, blood cultures NGTD 24 hours. Diarrhea panel normal. ? Continue cefepime day 2, discontinued vancomycin. ? Follow-up CBC, CMP, phosphate, uric acid in the morning. Uric acid improving to 8.2 today. #Elevated lipase ? Lipase 1014 on admission. Though seems to be incidental finding in the se tting of severe illness as patient has no abdominal pain. ? GI consulted, seems to agree that low concern for acute pancreatitis but rather a sequelae of ileus. No CT evidence of pancreatitis as well. Unremarkable RUQ ultrasound. #FAVIO on CKD stage III #Lactic acidosis #Hyperkalemia #Hyperphosphatemia #Hyperuricemia ? Initial creatinine 2.1, baseline 1.5. Improved to 1.7 with IV fluid resuscitation today. ? Initial lactate 8.2, improving to 2.7 with fluids. Low suspicion for mesenteric ischemia as patient has no abdominal pain. ? Discontinued IV maintenance fluids, encourage oral intake. #Type 2 diabetes #Left BKA, right AKA ? A1c 6.1. ? Stumps stable, does have left stump abrasion but no active signs of infection. ? Hold home Jardiance, metformin due to suspected UTI and lactic acidosis. Blood sugar stable, 108 today. #History of CABG, CAD ? Continue aspirin, statin. #Hypothyroidism ? Continue home levothyroxine 50 mcg. #HFimpEF #Hypertension ? Stable. Hold home Entresto, spironolactone due to FAVIO, hyperkalemia. Hold home carvedilol due to GI losses. Blood pressure stable. #Mood disorder ? Continue home venlafaxine, quetiapine, prazosin. QTc 450. Full code DVT prophylaxis: Home Xarelto
--- NOTE | 2025-02-20 17:16 | PC.NURSE ---
a&ox4. pt has tolerated ra well throughout shift. respirations regular and unlabored. lung sounds clear throughout. no cough noted. active bowel sounds heard in all 4 quadrants. soft and nontender abdomen. abdomen is distended slightly. pt has had 1 bm thus far. clay cath in place with clear yellow urine noted. no kinks noted. hand injection mold technician equal. +1 pulses noted throughout. pt reported pain once in his ble and received norco per mar. on reassessment, pt was asleep. L bka noted and R aka noted healed site. quarter size abrasion noted to L bka. open to air. no drainage noted. pt moves independently in bed. bed alarm on to promote safety. pt's linens were changed this shift. pt received mag this shift as well as antibiotics per jan. pt tolerated well. bed in lowest position. call light within reach. vss. pt has remained afebrile.
--- NOTE | 2025-02-20 17:53 | PC.NURSE ---
2 family members have called to check on patient and talk to him. ok'd with pt to give family members update on his status. cousin lynn buckley , sister Esthela , sister Joanne . Dr Bean aware of family calling and that we have family members phone numbers now in case he needs to reach them
[2025-02-20] MEDS: clonazePAM 0.5MG TABLET 0.5 MG PO (20:51)
[2025-02-20] MEDS: PRAZOSIN 1MG CAP 3 MG PO (20:51)
[2025-02-20] MEDS: PANTOPRAZOLE 40MG TABLET 40 MG PO (20:51)
[2025-02-20] MEDS: TRAZODONE 50MG TABLET 50 MG PO (20:51)
[2025-02-20] MEDS: QUETIAPINE 100MG TABLET 400 MG PO (20:52)
[2025-02-21] VITALS: BP 116/58; PULSE 78; PULSE 80; RESP 17; TEMP 37.1; O2SAT 96
[2025-02-21 04:00] VITALS: BP 101/48; PULSE 70; PULSE 77; RESP 19; TEMP 37.1; O2SAT 94; BMI 43.2
--- NOTE | 2025-02-21 06:32 | PC.NURSE ---
Alert and oriented. No complaints from patient. IV abx. Room air. O2 sat >90%. Patient rested well throughout night. Abdomen soft and nontender. Call light in reach. Bed alarm on.
[2025-02-21] MEDS: LEVOTHYROXINE 50MCG (0.05MG) TAB 50 MCG PO (06:38)
[2025-02-21 06:56] LABS: Albumin Level 3.5 g/dl (3.5-5.0); Chloride 109 mmol/L (98-107)
[2025-02-21 06:57] LABS: Sodium 139 mmol/L (136-145)
[2025-02-21 06:59] LABS: Alanine Aminotransferase 13 U/L (12-78); Alkaline Phosphatase 79 U/L (38-126); Aspartate Amino Transferase 32 U/L (17-59); Bilirubin,Total 0.4 mg/dl (0.2-1.3); Blood Urea Nitrogen 16 mg/dl (9-20); Carbon Dioxide 24 mmol/L (22.0-30.0); Creatinine Clearance Estimated 36 mL/min (50-200); Estimated Glomerular Filt Rate 51 ml/min (>60); GFR (African American) 62 ML/MIN (>60)
[2025-02-21 07:00] LABS: Albumin/Globulin Ratio 1.1 (1.1-1.8); Basophils # 0.1 K/mm3 (0-0.2); Basophils % 0.4 % (0.1-2.0); Calcium 9.1 mg/dl (8.4-10.2); Eosinophils # 0.2 K/mm3 (0.0-0.4); Eosinophils % 1.2 % (0.1-12.0); Globulin 3.2 g/dL (1.3-3.2); Glucose 134 mg/dl (74-100); Hematocrit 29.4 % (42.0-52.0); Hemoglobin 9.4 g/dL (14.1-18.0); Lymphocytes # 11.3 K/mm3 (0.7-4.5); Lymphocytes % 67.6 % (10-50); Magnesium 2.1 mg/dl (1.6-2.3); Mean Corpuscular Hemoglobin 30.2 pg (27.0-31.2); Mean Corpuscular Volume 94.5 fl (80-94); Mean Platelet Volume 10.7 fl (7.4-10.4); Monocytes # 1.1 K/mm3 (0.1-1.0); Monocytes % 6.8 % (1.7-9.3); Neutrophils % 23.8 % (37.0-80.0); Nucleated Red Blood Cells # 0 10^3/uL; Nucleated Red Blood Cells % 0 %; Platelet Count 273 K/mm3 (142-424); Red Blood Count 3.11 M/mm3 (4.60-6.20); Red Cell Distribution Width 14.6 % (11.5-17.5); Red Cell Distribution Width-SD 50.2 fL; Total Protein,Serum 6.7 g/dl (6.3-8.2); White Blood Count 16.7 K/mm3 (4.8-10.8)
[2025-02-21 07:06] LABS: MANUAL DIFFERENTIAL MANUAL DIFFERENTIAL (MANUAL DIFF)
[2025-02-21 08:00] VITALS: BP 112/56; PULSE 80; PULSE 88; RESP 17; TEMP 36.9; O2SAT 97
[2025-02-21 08:27] LABS: Eosinophils % 1 % (0-3); Lymphocytes % 46 % (10-50); Monocytes % 15 % (2-9); Neutrophils % 32 % (42-76); Nucleated Red Blood Cells 4; Total Cells Counted 100
[2025-02-21 08:32] LABS: Platelet Estimate Normal
[2025-02-21 08:33] LABS: Acanthocytes 1+; Ovalocytes 1+
[2025-02-21] MEDS: CEFEPIME HCL 1 GM in 0.9 % SODIUM CHLORIDE 50 ML IV (08:54)
[2025-02-21] MEDS: VENLAFAXINE XR 75MG CAPSULE 150 MG PO (08:54)
[2025-02-21] MEDS: RIVAROXABAN 2.5MG TABLET 2.5 MG PO (08:54)
[2025-02-21] MEDS: GABAPENTIN 100MG CAPSULE 100 MG PO (08:54)
[2025-02-21] MEDS: ASPIRIN 81MG CHEWABLE TABLET 81 MG PO (08:54)
[2025-02-21 09:08] LABS: Free T4 (Free Thyroxine) 1.29 ng/dl (0.78-2.19)
[2025-02-21 09:54] LABS: Thyroid Stimulating Hormone 2.53 uIU/mL (0.465-4.68)
[2025-02-21 12:00] VITALS: BP 148/62; PULSE 74; PULSE 90; RESP 16; TEMP 36.2; O2SAT 97
--- NOTE | 2025-02-21 12:01 | EXP.DC.SUM ---
General Admission date:: 02/19/25 HPI HPI HPI: Mr. Hilton is a 64-year-old gentleman [facility] resident who is admitted today from the emergency department. It appears that the patient was just discharged yesterday and has had a lot of medication adjustments because of his bipolar disorder and depression. He was not having abdominal complaints according to discharge summary on 02/18. The patient Mayra presented to the emergency department from the halfway today. The patient had significant leukocytosis and altered mental status. He presents with nausea and vomiting and difficulty with some appropriately answering questions. He is sluggish to respond and lethargic. On examination in the emergency department, ED physician (Mariana Marshall) notified me today that he had elevated pancreatic chemistries. CAT scan showed fluid-filled large and small bowel loops possibly related to ileus or enteritis. Abdominal ultrasound showed no gallstones or cholecystitis or CBD dilation. Hospital Course Hospital Course Hospital Course: Easton Hilton is a 64-year-old male with a medical history significant for CAD/CABG, HFpEF, hypertension, hyperlipidemia, type 2 diabetes, left BKA, right AKA, mood disorder who presents with intractable nausea/vomiting and was admitted for FAVIO, persistent leukocytosis, high anion metabolic lactic acidosis, hyperkalemia, hypophosphatemia, hyperuricemia. These findings were concerning for cancer. #Mature lymphoproliferative disorder, suspected malignancy #UTI #Enteritis ? WBC initially 29.4, lymphocytic predominant. Patient has had 2 recent admissions over the past 2 weeks with similar lymphocytic predominant leukocytosis. WBC worsened since last 2 admissions. ? Patient had new fluid-filled bowel loops concerning for enteritis versus ileus. However, patient is having bowel movements making enteritis more likely. ? He did have hyperkalemia 6.0, hyperuricemia 8.7, hyperphosphatemia 6.6 with leukocytosis highly concerning for leukemia/lymphoma. ? UA also grossly abnormal, though previous urine cultures have been normal. Growing yeast, treated with fluconazole. ? Initially treated with vancomycin, cefepime but discontinued given no true source of bacterial infection. ? Peripheral smear showing mature lymphoproliferative disorder, and in this setting highly suspicious for leukemia/lymphoma. No blast crisis at this time. Will follow-up with flow cytometry which will take 2-3 more days to result. ? WBC improved to 16.7 today, and was likely elevated due to reactive from volume contraction, enteritis. ? Follow-up flow cytometry. #Elevated lipase ? Lipase 1014 on admission. Though seems to be incidental finding in the setting of severe illness as patient has no abdominal pain. ? GI consulted, seems to agree that low concern for acute pancreatitis but rather a sequelae of ileus. No CT evidence of pancreatitis as well. Unremarkable RUQ ultrasound. ? Tolerating diet without issues. Having bowel movements. #FAVIO on CKD stage III #Lactic acidosis #Hyperkalemia #Hyperphosphatemia #Hyperuricemia ? Improved with IV fluid resuscitation. Creatinine 1.4, GFR 51. Stable. #Type 2 diabetes #Left BKA, right AKA ? A1c 6.1. ? Stumps stable, does have left stump abrasion but no active signs of infection. ? Continue home metformin, Jardiance. Patient did not require insulin during admission, recommend discontinuing unless needed. #History of CABG, CAD ? Continue aspirin, statin. #Hypothyroidism ? Continue home levothyroxine 50 mcg. #HFimpEF #Hypertension ? Stable. Continue Coreg. #Mood disorder ? Continue home venlafaxine, quetiapine, prazosin. QTc 450. Total time spent on discharge: 31 minutes on chart review, counseling, documentation, and direct care with patient. Exam Data for Last 24 hours Vital signs and Labs for Last 24 Hours: Temp Pulse Resp BP Pulse Ox O2 Del Method 98.4 F 88 17 112/56 L 97 Room Air 02/21/25 08:00 02/21/25 08:00 02/21/25 08:00 02/21/25 08:00 02/21/25 08:00 02/21/25 11:00 Laboratory Results - last 24 hr 02/20/25 05:34: Uric Acid 8.2 02/21/25 06:07: WBC 16.7 H, RBC 3.11 L, Hgb 9.4 L, Hct 29.4 L, MCV 94.5 H, MCH 30.2, MCHC 32.0, RDW 14.6, Plt Count 273, MPV 10.7 H, Neut % (Auto) 23.8 L, Lymph % (Auto) 67.6 H, [place] % (Auto) 6.8, Eos % (Auto) 1.2, Baso % (Auto) 0.4, Neut # (Auto) 4.0, Lymph # (Auto) 11.3 H, [place] # (Auto) 1.1 H, Eos # (Auto) 0.2, Baso # (Auto) 0.1, Total Counted 100, Neutrophils % (Manual) 32 L, Band Neutrophils % 2.0, Lymphocytes % (Manual) 46, Atypical Lymphs % 2.0, Monocytes % (Manual) 15 H, Eosinophils % (Manual) 1, Basophils % (Manual) 2.0 H, Nucleated RBCs 4, Platelet Estimate Normal, Ovalocytes 1+, Acanthocytes (Spur) 1+, Sodium 139, Potassium 4.0, Chloride 109 H, Carbon Dioxide 24, Anion Gap 10.0, BUN 16 D, Creatinine 1.40 H, Estimated Creat Clear 36, Estimated GFR 51 L, Est GFR ( Amer) 62 D, Glucose 134 H, Calcium 9.1, Magnesium 2.1 D, Total Bilirubin 0.4, AST 32, ALT 13, Alkaline Phosphatase 79, Total Protein 6.7, Albumin 3.5, Globulin 3.2, Albumin/Globulin Ratio 1.1, TSH 2.53 D, Free T4 1.29 I & O for Last 24 hours: Intake & Output 02/18/25 02/19/25 02/20/25 02/21/25 23:59 23:59 23:59 23:59 Intake Total 1000 / 1963 2257 / 2257 540 / 540 Output Total 900 / 900 1625 / 2375 900 / 900 Balance 100 / 1063 632 / -118 -360 / -360 Weight 98.089 kg 100.289 kg 99.8 kg Microbiology Reports for the Last 24 Hours: Microbiology 02/19/25 13:21 Blood Blood Culture - Preliminary NO GROWTH AFTER 24 HOURS 02/19/25 12:07 Blood Blood Culture - Preliminary NO GROWTH AFTER 24 HOURS Constitutional Constitutional: no acute distress *Routine HEENT Exam Head: Present normocephalic Eye: Present EOMI and PERRL ENT: Present mucous membranes moist *Routine Neck Exam Neck: Present supple; Absent lymphadenopathy *Routine Respiratory Exam Respiratory: Present CTA bilaterally *Routine Cardiovascular Exam Cardiovascular: Present RRR *Routine Abdominal Exam Abdominal: Present soft and normoactive bowel sounds; Absent tenderness *Routine Extremities Exam Extremities: Absent cyanosis, clubbing or edema Comments: Left BKA, right AKA. *Routine Skin Exam Skin: Present warm; Absent rash *Routine Neurological Exam Neurological: Present alert and oriented X3 Results Data Completed and Pending Labs on day of discharge: Labs from last 24 hours 02/21/25 02/20/25 06:07 05:34 WBC 16.7 H RBC 3.11 L Hgb 9.4 L Hct 29.4 L MCV 94.5 H MCH 30.2 MCHC 32.0 RDW 14.6 Plt Count 273 MPV 10.7 H Neut % (Auto) 23.8 L Lymph % (Auto) 67.6 H [place] % (Auto) 6.8 Eos % (Auto) 1.2 Baso % (Auto) 0.4 Neut # (Auto) 4.0 Lymph # (Auto) 11.3 H [place] # (Auto) 1.1 H Eos # (Auto) 0.2 Baso # (Auto) 0.1 Total Counted 100 Neutrophils % (Manual) 32 L Band Neutrophils % 2.0 Lymphocytes % (Manual) 46 Atypical Lymphs % 2.0 Monocytes % (Manual) 15 H Eosinophils % (Manual) 1 Basophils % (Manual) 2.0 H Nucleated RBCs 4 Platelet Estimate Normal Ovalocytes 1+ Acanthocytes (Spur) 1+ Sodium 139 Potassium 4.0 Chloride 109 H Carbon Dioxide 24 Anion Gap 10.0 BUN 16 D Creatinine 1.40 H Estimated Creat Clear 36 Estimated GFR 51 L Est GFR ( Amer) 62 D Glucose 134 H Uric Acid 8.2 Calcium 9.1 Magnesium 2.1 D Total Bilirubin 0.4 AST 32 ALT 13 Alkaline Phosphatase 79 Total Protein 6.7 Albumin 3.5 Globulin 3.2 Albumin/Globulin Ratio 1.1 TSH 2.53 D Free T4 1.29 Preliminary micro results at discharge 02/19/25 13:21 Blood Culture - Preliminary Blood NO GROWTH AFTER 24 HOURS 02/19/25 12:07 Blood Culture - Preliminary Blood NO GROWTH AFTER 24 HOURS DS: Diagnosis Discharge Diagnosis (1) Leukocytosis: Status: Acute Code(s): D72.829 - Elevated white blood cell count, unspecified (2) Lymphoproliferative disorder: Status: Acute Code(s): D47.9 - Neoplasm of uncertain behavior of lymphoid, hematopoietic and related tissue, unspecified Meds Home Medications and Allergies Home Medications ?Medication ?Instructions ?Recorded ?Confirmed ?Type atorvastatin 80 mg tablet 80 mg PO HS 12/05/19 02/19/25 History pantoprazole 40 mg tablet,delayed 40 mg PO DAILY 12/05/19 02/19/25 History release polyethylene glycol 3350 17 gram 17 g PO DAILYP PRN Constipation 12/05/19 02/19/25 History oral powder packet lactulose 10 gram/15 mL oral 30 ml PO DAILYP PRN Constipation 02/03/21 02/19/25 History solution acetaminophen 325 mg tablet 650 mg (2 x 325 mg) PO Q6HP PRN 04/02/21 02/19/25 Rx Mild To Moderate Pain docusate sodium 100 mg capsule 100 mg PO BIDP PRN Constipation 04/02/21 02/19/25 Rx metformin 1,000 mg tablet 1,000 mg PO BID #180 tabs 12/03/23 02/19/25 Rx multivitamin (One-A-Day Essential 1 tab PO DAILY 01/16/24 02/19/25 History tablet) rivaroxaban 2.5 mg tablet 2.5 mg PO BID Blood thinner 90 02/06/24 02/19/25 Rx days #180 tabs insulin human U-100 NPH-regulr 65 unit SQ DAILY 05/24/24 02/19/25 History 70-30 mix 100 unit/mL subcutaneous susp empagliflozin 25 mg tablet 25 mg PO DAILY #90 tabs 08/14/24 02/19/25 Rx (Jardiance) quetiapine 400 mg tablet 400 mg PO HS 08/29/24 02/19/25 History coQ10 (ubiquinol) 100 mg capsule 100 mg PO BID #180 caps 11/13/24 02/19/25 Rx (Qunol Kurtis CoQ10) dextromethorphan-guaifenesin 10 10 ml PO Q6HP PRN Congestion 11/13/24 02/19/25 History mg-100 mg/5 mL oral liquid (Robafen DM Cough) venlafaxine 150 mg 150 mg PO DAILY 01/22/25 02/19/25 History capsule,extended release 24 hr carvedilol 25 mg tablet (Coreg) 25 mg PO 0800,1700 02/09/25 02/19/25 History clonazepam 0.5 mg tablet 0.5 mg PO HS 02/09/25 02/19/25 History hydrocodone 5 mg-acetaminophen 325 1 tab PO BIDP PRN Severe Pain 02/09/25 02/19/25 History mg tablet (Scale Score 7-10) prazosin 1 mg capsule 3 mg PO HS 02/09/25 02/19/25 History trazodone 50 mg tablet 50 mg PO HS 02/09/25 02/19/25 History patiromer calcium sorbitex 8.4 8.4 g PO DAILY #30 ea 02/12/25 02/19/25 Rx gram oral powder packet ([place]elt[place]) gabapentin 100 mg capsule 100 mg PO BID #60 caps 02/15/25 02/19/25 Rx insulin glargine 100 unit/mL (3 75 unit SQ HS 02/17/25 02/19/25 History mL) subcutaneous pen (Lantus Solostar U-100 Insulin) aspirin 81 mg chewable tablet 81 mg PO DAILY 02/19/25 02/19/25 History levothyroxine 50 mcg tablet 50 mcg PO DAILY 02/19/25 02/19/25 History (Synthroid) New Prescriptions to Start Prescriptions: Allergies Allergy/AdvReac Type Severity Reaction Status Date / Time No Known Allergies Allergy Verified 02/19/25 12:26 Discharge Plan Disposition Patient Disposition: [facility] Condition: Fair Discharge Order Discharge Orders: Discharge Order (Routine); Ordered 02/21/25 Ordered By: Edgar Bean Follow up Plan Follow up with: Teofilo Cassidy MD [Staff Physician] - 02/27/25 Prescriptions/Medication Reconciliation: Continued multivitamin [One-A-Day Essential] Tablet 1 tab PO DAILY dextromethorphan-guaifenesin [Robafen DM Cough] 10-100 mg/5 mL liquid 10 ml PO Q6HP PRN (Reason: Congestion) venlafaxine 150 mg capsule,extended release 24hr 150 mg PO DAILY metformin 1,000 mg tablet 1,000 mg PO BID Qty: 180 3RF rivaroxaban 2.5 mg tablet 2.5 mg PO BID 90 Days Qty: 180 3RF quetiapine 400 mg tablet 400 mg PO HS coQ10 (ubiquinol) [Qunol Kurtis CoQ10] 100 mg capsule 100 mg PO BID Qty: 180 3RF [place] 8.4 gram powder in packet 8.4 g PO DAILY Qty: 30 0RF lactulose 10 gram/15 mL solution 30 ml PO DAILYP PRN (Reason: Constipation) Jardiance 25 mg tablet 25 mg PO DAILY Qty: 90 3RF gabapentin 100 mg capsule 100 mg PO BID Qty: 60 0RF pantoprazole 40 MG tablet,delayed release (DR/EC) 40 mg PO DAILY polyethylene glycol 3350 17 GM powder in packet 17 g PO DAILYP PRN (Reason: Constipation) atorvastatin 80 MG tablet 80 mg PO HS aspirin 81 mg Tablet,Chewable 81 mg PO DAILY levothyroxine [Synthroid] 50 mcg tablet 50 mcg PO DAILY acetaminophen 325 MG tablet 650 mg PO Q6HP PRN (Reason: Mild To Moderate Pain) 0RF docusate sodium 100 MG capsule 100 mg PO BIDP PRN (Reason: Constipation) 0RF prazosin 1 mg capsule 3 mg PO HS carvedilol [Coreg] 25 mg tablet 25 mg PO 0800,1700 trazodone 50 mg tablet 50 mg PO HS hydrocodone-acetaminophen 5-325 mg tablet 1 tab PO BIDP PRN (Reason: Severe Pain (Scale Score 7-10)) clonazepam 0.5 mg tablet 0.5 mg PO HS Held insulin NPH and regular human 100 unit/mL (70-30) suspension 65 unit SQ DAILY Hold Instructions: Resume on 03/07/25. A1c is 6.1, patient did not require insulin during admission. Resume if appropriate. insulin glargine [Lantus Solostar U-100 Insulin] 100 unit/mL (3 mL) Insulin Pen 75 unit SQ HS Hold Instructions: Resume on 03/07/25. A1c is 6.1, patient did not require insulin during admission. Resume if appropriate. Problem Reconciliation Problems Reviewed?: Yes Patient Discharge Instructions Patient Instructions: DI for Pancreatitis, DI for Sepsis -- Adult, DI for Altered Mental Status Print Language: [place] Providers Primary Care Provider: Armin Stewart Admit Provider: Edgar Bean Attending Provider: Edgar Bean
[2025-02-21 13:06] LABS: Peripheral Smear Review Scanned Result
[2025-02-21] MEDS: VANCOMYCIN/WATER FOR INJ (PEG) 1.5 GM/300 ML PIGGYBACK IV (13:23)
[2025-02-21] MEDS: FLUCONAZOLE 200MG TABLET 200 MG PO (14:11)
== END 2025-02-21 16:30 | DRG 948 ==
LOC: ER 14:46 → 2ND 14:57
PROVIDERS: Nurse Practitioner Family; Admitting Provider Student in an Organized Health Care Education/Training Program; Emergency Provider Emergency Medicine; PCP Nurse Practitioner Acute Care; Visit Provider Student in an Organized Health Care Education/Training Program
DX: R41.82 Altered mental status, unspecified (principal); D47.Z9 Other specified neoplasms of uncertain behavior of lymphoid, hematopoietic and related tissue; I13.0 Hypertensive heart and chronic kidney disease with heart failure and stage 1 through stage 4 chronic kidney disease, or unspecified chronic kidney disease; I50.32 Chronic diastolic (congestive) heart failure; N39.0 Urinary tract infection, site not specified; N17.9 Acute kidney failure, unspecified; Z68.41 Body mass index [BMI] 40.0-44.9, adult; R11.2 Nausea with vomiting, unspecified; K52.9 Noninfective gastroenteritis and colitis, unspecified; D72.829 Elevated white blood cell count, unspecified; F31.9 Bipolar disorder, unspecified; E11.22 Type 2 diabetes mellitus with diabetic chronic kidney disease; I25.10 Atherosclerotic heart disease of native coronary artery without angina pectoris; N18.30 Chronic kidney disease, stage 3 unspecified; E78.5 Hyperlipidemia, unspecified; E83.39 Other disorders of phosphorus metabolism; E66.01 Morbid (severe) obesity due to excess calories; E79.0 Hyperuricemia without signs of inflammatory arthritis and tophaceous disease; E87.5 Hyperkalemia; R74.8 Abnormal levels of other serum enzymes; E03.9 Hypothyroidism, unspecified; Z95.1 Presence of aortocoronary bypass graft; Z79.890 Hormone replacement therapy; Z79.4 Long term (current) use of insulin; Z79.899 Other long term (current) drug therapy; Z79.84 Long term (current) use of oral hypoglycemic drugs; Z79.82 Long term (current) use of aspirin; Z79.01 Long term (current) use of anticoagulants; Z89.611 Acquired absence of right leg above knee; Z89.512 Acquired absence of left leg below knee
CPT/HCPCS: 36415; 51702; 70450; 70496; 70498; 71275; 74177; 76705; 80053; 81001; 82009; 82803; 83605; 83615; 83690; 83735; 83880; 84100; 84132; 84145; 84436; 84439; 84443; 84484; 84550; 85007; 85025; 85378; 85384; 85610; 85730; 86140; 87040; 87086; 87507; 87636; 93005; 99291; J0692; J2405; J2543; J3372; J3475; J7120; Q9967